=== PATIENT | male | born 1960 | race Two or more races ===

== ENCOUNTER 2023-10-06 06:42 | Outpatient (OUT) | payer BC, SELFPAY ==
[2023-10-06 07:07] LABS: Basophils Percent Auto 0.5 % (0.2-2.0); Eosinophils Absolute Auto 0.4 10^3/uL (0.0-0.7); Eosinophils Percent Auto 4.2 % (0.9-7.0); Hematocrit 42.3 % (42.0-54.0); Immature Granulocytes Abs Auto 0.02 10^3/uL (0.00-0.03); Immature Granulocytes Pct Auto 0.2 % (0.0-0.5); Lymphocytes Absolute Auto 2.1 10^3/uL (1.2-3.8); Lymphocytes Percent Auto 23.9 % (20.5-60.0); Mean Corpuscular HGB Conc 33.1 g/dL (29.9-35.2); Mean Corpuscular Hemoglobin 29.2 pg (25.9-34.0); Mean Corpuscular Volume 88.1 fL (80.0-94.0); Monocytes Absolute Auto 0.5 10^3/uL (0.3-0.8); Monocytes Percent Auto 5.7 % (1.7-12.0); Neutrophils Absolute Auto 5.7 10^3/uL (1.4-6.5); Neutrophils Percent Auto 65.5 % (43.0-75.0); Platelet Count 162 10^3/uL (150-450); Red Cell Distribution Width 12.3 % (11.0-15.0); White Blood Count 8.8 10^3/uL (4.0-11.0)
[2023-10-06 07:14] LABS: Creatinine Urine Random 145.39 mg/dL (20.00-300.00); Microalbum Creatinine Ratio Ur 38.5 mg/g (0.0-29.9); Microalbumin Urine Random 5.6 mg/dL (<=30.0)
[2023-10-06 07:34] LABS: Alanine Aminotransferase 37 U/L (16-63); Albumin Globulin Ratio 0.8; Albumin Level 3.4 g/dL (3.4-5.0); Alkaline Phosphatase 89 U/L (46-116); Anion Gap 12.1; Aspartate Amino Transferase 23 U/L (15-37); BUN Creatinine Ratio 30.8; Bilirubin Total 0.6 mg/dL (0.2-1.0); Calcium 8.9 mg/dL (8.5-10.1); Carbon Dioxide 29.1 mmol/L (21.0-32.0); Chloride 104 mmol/L (98-107); Cholesterol 148 mg/dL (<=200); Estimated GFR (African America >60 (>=60); Estimated GFR (Non-African Ame >60 (>=60); Globulin 4.2 g/dL; Glucose 153 mg/dL (74-106); HDL Cholesterol 49 mg/dL (40-60); Potassium 4.2 mmol/L (3.5-5.1); Sodium 141 mmol/L (136-145); Total Protein 7.6 g/dL (6.4-8.2); Triglycerides 255 mg/dL (<=150)
[2023-10-06 10:41] LABS: Estimated Average Glucose 180 mg/dL; Glycohemoglobin A1C 7.9 % (4.5-6.2)
== END 2023-10-06 06:43 | disposition home or self-care (01) ==
LOC: LAB 06:42
PROVIDERS: PCP Internal Medicine; Visit Provider Internal Medicine
DX: E11.9 Type 2 diabetes mellitus without complications (principal); I25.10 Atherosclerotic heart disease of native coronary artery without angina pectoris; E78.5 Hyperlipidemia, unspecified
CPT/HCPCS: 36415; 80053; 80061; 82043; 82570; 83036; 85025

== ENCOUNTER 2024-02-25 06:44 | Outpatient (OUT) | payer BC, SELFPAY ==
[2024-02-25 08:07] LABS: Estimated Average Glucose 151 mg/dL; Glycohemoglobin A1C 6.9 % (4.5-6.2)
== END 2024-02-25 06:45 | disposition home or self-care (01) ==
LOC: LAB 06:44
PROVIDERS: PCP Internal Medicine; Visit Provider Internal Medicine
DX: E11.9 Type 2 diabetes mellitus without complications (principal)
CPT/HCPCS: 36415; 83036

== ENCOUNTER 2024-05-30 14:22 | Outpatient (OUT) | payer BC, SELFPAY | END 2024-05-30 14:23 | disposition home or self-care (01) | LOC: PST 14:22 | PROVIDERS: PCP Internal Medicine; Visit Provider Ophthalmology | DX: Z01.818 Encounter for other preprocedural examination (principal); H25.811 Combined forms of age-related cataract, right eye ==

== ENCOUNTER 2024-06-02 08:06 | Day surgery (SDC) | payer BC, SELFPAY ==
--- NOTE | 2024-06-02 | HP_ITS ---
PREOPERATIVE HISTORY AND PHYSICAL Date:? 05/31/2024 HISTORY:? The patient is a 63-year-old male with complaints of declining vision out of his right eye.? The onset of this has been rather gradual, over the last 12-18 months.? He states having difficulty with tasks in mid view range.? Reading/computer work have become more challenging.? He also states having difficulty driving with light at night time creating glare and halos.? PAST OCULAR HISTORY: ?Diabetic retinopathy bilaterally.? PAST MEDICAL HISTORY: Diabetes mellitus, hypertension, hypercholesterolemia, coronary artery disease.? SOCIAL HISTORY:? Denies tobacco, alcohol or recreational drug abuse. SYSTEMIC MEDICATIONS:? Include 81 mg aspirin, valsartan, metoprolol, rosuvastatin, glimepiride, metformin.? ALLERGIES TO MEDICATIONS:? Glipizide. REVIEW OF SYSTEMS:? No pertinent positives. PHYSICAL EXAM: GENERAL:? In general, he is awake, alert and oriented x3, well developed, well nourished, in no acute distress.? HEART:? Regular rate and rhythm. LUNGS:? Clear bilaterally. ABDOMEN:? Soft, non-tender, non-distended. EXTREMITIES:? No pitting edema. OPHTHALMIC EXAM:? Revealed a visual acuity of 20/50 -2 bilaterally that glared to 20/200 bilaterally.? Pupils motility, muscle balance and confrontational visual gifford within normal limits bilaterally.? Slit lamp exam revealed blepharitis with a severe decrease in tear film bilaterally.? Conjunctiva, cornea, anterior chamber and iris were within normal limits bilaterally.? Lens status demonstrated 2+ nuclear sclerosis with 3+ cortical changes, vacuoles and a 1+ posterior subcapsular cataract.? FUNDUS EXAM:? Revealed a hazy view bilaterally.? Optic discs, vessels, periphery were within normal limits bilaterally.? The macula demonstrated micro aneurysms and an epiretinal membrane in the right eye, and micro aneurysms and intraretinal hemorrhages in the left eye.? ASSESSMENT AND PLAN:? Visually significant cataract, right eye.? After the risks, benefits, and alternatives as well as expectations were delivered to the patient, he elected to go forward with cataract removal.? He understands those risks to include but not limited to infection, bleeding, loss of vision or loss of the eye itself.? Secondly, he understands that postoperatively he is likely to require spectacle correction for his best visual acuity.? Finally, a complete ophthalmic exam was performed and there was not determined to be any source of visual decline other than that of the cataract, which is the likely source of his visual decline. ?After understanding all risks as well as expectations, he elected to go forward with the procedure as listed above and will be doing so in the near future. YENNI
--- NOTE | 2024-06-02 | OP_ITS ---
OPERATION DATE: 06/02/2024 SURGEON: Rashad Solis D.O. PREOPERATIVE DIAGNOSIS: Nuclear sclerotic cataract right eye. POSTOPERATIVE DIAGNOSIS: Nuclear sclerotic cataract right eye. PROCEDURE NAME: Cataract extraction with intraocular lens placement of the right eye. ANESTHESIA: Topical ESTIMATED BLOOD LOSS: Zero. COMPLICATIONS: None. PROCEDURE: The patient was brought to the Operating Room in supine position. After proper identification, the right eye was prepped and draped in a sterile ophthalmic fashion. A paracentesis created at the 11 o'clock position. Approximately 1 cc of unpreserved Xylocaine was injected into the anterior chamber followed by Amvisc Plus. Using a 2.6 mm Keratome blade, a clear corneal incision was created at the 9 o'clock limbus. A cystotome was then used to begin a curvilinear capsulorrhexis that was continued for 360 degrees with the Utrata forceps. BSS on a 26 gauge cannula was injected beneath the anterior capsule to hydrodissect as well as hydrodelineate the lens. After ensuring mobility, phacoemulsification was performed in a [id number]-type fashion. After all nuclear material had been removed from the eye, IA was introduced and all residual cortical material was cleaned up. Additional Amvisc Plus was injected into the posterior bag and a lens model MX60, 18.0 diopters was injected and dialed into position. After ensuring centration, IA was reintroduced into the anterior chamber and all residual Amvisc Plus was removed from the eye. BSS on a 30 gauge cannula was injected into the stroma of both the clear corneal incision as well as paracentesis to hydrate the wounds. Additional BSS was injected into the anterior chamber to pressurize the eye at approximately 20 to 22 mmHg by finger tension. 0.1 cc of antibiotic was injected into the anterior chamber and Weck-Lindsey sponges were used to check the wounds to be watertight. One drop of apraclonidine and one drop of prednisolone acetate placed into the eye and a shield was placed over top. The patient was sent to the postoperative area in satisfactory condition to follow up the following day for postoperative care. YENNI
[2024-06-02 08:10] VITALS: BP 138/86; PULSE 72; TEMP 36; O2SAT 100
--- OUTSIDE RECORDS SUMMARY | 2024-06-02 08:12 | XMS_ITS | CCD ---
Author Organization [facility] Inform ion [facility] Care Team Providers Care Repertoire Manager Name Role Phone MD Julio Sadler Attending Provider [phone] MD Angelo Pearce Primary Care Provider Shaikh Pearce Unavailable Unavailable Unavailable Julio Sadler Referring Unavailable Julio Sadler Attending Unavailable Julio Sadler Referring Unavailable Julio Sadler Attending Unavailable Julio Sadler Attending Unavailable Julio Sadler Referring Unavailable FAWWAD, STEPHENS H Admitting Unavailable FAWWAD, STEPHENS H Attending Unavailable FAWWAD, STEPHENS H Consulting Unavailable FAWWAD, STEPHENS H Primary Care Unavailable SADLER, DR JULIO Vigil Attending Unavailable SADLER, DR JULIO Vigil Consulting Unavailable FAWWAD, STEPHENS H Primary Care Unavailable SADLER, DR JULIO Vigil Admitting Unavailable FAWWAD, STEPHENS H Admitting Unavailable FAWWAD, STEPHENS H Attending Unavailable FAWWAD, STEPHENS H Consulting Unavailable FAWWAD, STEPHENS H Primary Care Unavailable SADLER, DR JULIO Vigil Consulting Unavailable SADLER, DR JULIO Vigil Admitting Unavailable FAWWAD, STEPHENS H Primary Care Unavailable SADLER, DR JULIO Vigil Attending Unavailable FAWWAD, STEPHENS H Admitting Unavailable ZIEBER, DR GARRETT Winter Consulting Unavailable FAWWAD, STEPHENS H Attending Unavailable FAWWAD, STEPHENS H Primary Care Unavailable FAWWAD, STEPHENS H Consulting Unavailable Fawwad, Stephens Primary Care Unavailable Julio Sadler Attending Unavailable Julio Sadler Admitting Unavailable Fawwad MD, Stephens Primary Care Provider [phone] JULIO SADLER Attending Unavailable SHAIKH PEARCE Primary Care Unavailable Shaikh Pearce MD Primary Care Provider SHAIKH PEARCE Attending Unavailable GREGORY LUJAN Attending Unavailable ARVIN PEDROZA Referring Unavailable SHAIKH PEARCE Attending Unavailable SHAIKH PEARCE Attending Unavailable GREGORY LUJAN Attending Unavailable Allergies Allergy Classification Reported Allergen(s) Allergy Type Date of Onset Reaction(s) Facility (2 sources) glipiZIDE; Translations: [GLIPIZIDE] Drug Allergy 10-01-2023 [facility] Medications Current Medications Medication Drug Class(es) Dates Sig (Normalized) Sig (Original) aspirin 81 mg chewable tablet (8 sources) Platelet Aggregation Inhibitor, Nonsteroidal Anti-inflammatory Drug Start: 12-24-2021 take 81 mg by mouth once daily Aspirin Active 81 MG PO Daily December 24, 2021 4:12pm take 1 tablet by mouth once geovanny y aspirin 81 mg EC tablet Take 1 tablet (81 mg) by mouth once daily. 0 Active glipiZIDE 5 mg oral tablet (8 sources) Sulfonylurea Start: 10-24-2021 End: 10-01-2023 glipiZIDE (Glucotrol) 5 mg tablet Take by mouth once daily. 0 10/24/2021 10/01/2023 Discontinued (Therapy completed) metFORMIN hydrochloride 500 mg oral tablet (10 sources) Biguanide Start: 12-24-2021 take 500 mg by mouth twice daily Metformin Active 500 MG PO Twice daily December 24, 2021 4:12pm Start: 10-24-2021 take 1 tablet by terrell th every twelve hours metFORMIN (Glucophage) 500 MG tablet Indications: Type 2 diabetes mellitus with hyperglycemia (CMS/HCC) TAKE 1 TABLET BY MOUTH EVERY 12 HOURS 180 tablet 0 09/21/2023 Active 24 hr metoprolol succinate 50 mg extended release oral tablet (11 sources) beta-Adrenergic Nenita Start: 10-01-2023 End: 09-30-2024 take 1 tablet by mouth once daily metoprolol succinate XL (Toprol-XL) 50 mg 24 hr tablet Indications: 3-vessel coronary artery disease Take 1 tablet (50 mg) by mouth once daily. Do not crush or chew. 90 tablet 3 10/01/2023 09/30/2024 Active Start: 12-24-2021 take 25 mg by mouth twice geovanny y Metoprolol Tartrate Active 25 MG PO Twice daily December 24, 2021 4:12pm Start: 12-09-2021 End: 10-01-2023 take 1 tablet by mouth every twelve hours metoprolol tartrate (Lopressor) 25 MG tablet Indications: Cardiac arrhythmia, unspecified , Cardiac dysrhythmia TAKE 1 TABLET BY MOUTH EVERY 12 HOURS 180 tablet 0 09/21/2023 Active nitroglycerin 0.4 mg sublingual tablet (1 source) Nitrate Vasodilator Start: 10-01-2023 End: 09-30-2024 nitroglycerin (Nitrostat) 0.4 mg SL tablet Indications: 3-vessel coronary artery disease Place 1 tablet (0.4 mg) under the tongue every 5 minutes if needed for chest pain. May repeat dose every 5 minutes for up to 3 doses total. 100 tablet 11 10/01/2023 09/30/2024 Active rosuvastatin calcium 20 mg oral tablet (10 sources) HMG-CoA Reductase Inhibitor Start: 12-24-2021 take 1 tablet by mouth once daily rosuvastatin (Crestor) 20 MG tablet Indications: Hyperlipidemia, unspecified hyperlipidemia type (CMS/HCC) TAKE 1 TABLET BY MOUTH EVERY DAY 90 tablet 0 08/20/2023 Active SITagliptin 100 mg oral tablet (1 source) Dipeptidyl Peptidase 4 Inhibitor Start: 10-07-2023 End: 01-05-2024 take 1 tablet by mouth in the morning SITagliptin (Januvia) 100 MG tablet Indications: Type 2 diabetes mellitus without complication, without long-term current use of insulin (CMS/HCC) Take 1 tablet (100 mg) by mouth in the morning. 90 tablet 0 10/07/2023 01/05/2024 Active valsartan 80 mg oral tablet (5 sources) Angiotensin 2 Receptor Nenita Start: 11-05-2022 take 1 tablet by mouth in the morning valsartan (Diovan) 80 MG tablet Take 80 mg by mouth in the morning. 0 07/29/2023 Active Problems Active Problems Problem Classification Problem Date Documented Date Episodic/Chronic Cardiac dysrhythmias (8 sources) Paroxysmal ventricular tachycardia; Translations: [Paroxysmal ventricular tachycardia] Onset: 08-28-2023 Resolved: 12-13-2021 08-28-2023 Chronic Coronary atherosclerosis and other heart disease (15 sources) Triple vessel disease of the heart ; Translations: [Coronary atherosclerosis of unspecified type of vessel, [place] or graft] Onset: 11-21-2022 Chronic Comment on above: Cardiac cath November 30 showed occlusion of the RCA and left circumflex with 50-70% LAD stenosis; Diabetes mellitus with complications (4 sources) Type 2 diabetes mellitus with hyperglycemia; Translations: [TYPE 2 DM W/HYPERGLYCEMIA] Onset: 06-18-2022 Chronic Diabetes mellitus without complication (19 sources) Diabetes mellitus; Translations: [Diabetes mellitus without mention of complication, type II or unspecified type, not stated as uncontrolled] Onset: 11-19-2022 Chronic Diabetes mellitus without complication (2 sources) Hyperglycemia; Translations: [Hyperglycemia, unspecified] Onset: 08-28-2023 08-28-2023 Episodic Disorders of lipid metabolism (13 sources) Hyperlipidemia; Translations: [Other and unspecified hyperlipidemia] Onset: 11-21-2022 10-01-2023 Chronic Essential hypertension (2 sources) Essential hypertension; Translations: [Essential (primary) hypertension] Onset: 09-02-2023 09-02-2023 Chronic Other circulatory disease (2 sources) History of cardiomyopathy; Translations: [Other postprocedural status] Episodic Other nutritional; endocrine; and metabolic disorders (6 sources) Obesity; Translations: [Obesity, unspecified] Chronic Other screening for suspected conditions (not mental disorders or infectious disease) (13 sources) Cardiovascular stress test abnormal; Translations: [Other nonspecific abnormal results of function study of cardiovascular system] Onset: 12-26-2021 09-09-2023 Episodic Charla-; endo-; and myocarditis; cardiomyopathy (except that caused by tuberculosis or sexually transmitted disease) (10 sources) Cardiomyopathy; Translations: [Other primary cardiomyopathies] Onset: 12-26-2021 10-01-2023 Chronic Peripheral and visceral atherosclerosis (4 sources) Peripheral vascular disease, unspecified; Translations: [PERIPHERAL VASCULAR DISEASE UNS] Onset: 06-23-2022 Chronic Residual codes; unclassified (2 sources) Never smoked any substance; Translations: [Other specified health status] Onset: 10-01-2023 10-01-2023 Episodic Residual codes; unclassified (2 sources) Other specified health status; Translations: [Other specified health status] Onset: 10-01-2023 Episodic Screening and history of mental health and substance abuse codes (6 sources) Ex-smoker; Translations: [Personal history of tobacco use] Episodic Comment on above: QUIT IN 1999; Past or Other Problems Problem Classification Problem Date Documented Da te Episodic/Chronic Unclassified (1 source) Onset: 10-01-2023 10-01-2023 Results Test Name Value Interpretation Reference Range Facility [facility] MICROALB CREAT RATIO RAN DOMon 10-06-2023 CREATININE URINE RANDOM 145.39 mg/dL 20.00 - 300.00 mg/dL [facility] Interpretation and review of laboratory results Abnormal [facility] MICROALBUM CREATININE RATIO UR 38.5 mg/g High 0.0 - 29.9 mg/g [facility] Comment on above: NO MICROALBUMINURIA 0-29 MG/G CLINICAL MICROALBUMINURIA 30-300 MG/G MACROALBUMINURIA >300 MG/G MICROALBUMIN URINE RANDOM 5.6 mg/dL NINF - 30.0 mg/dL [facility] SGOTon 01-01-2023 AST [Catalytic activity/Vol] 23 U/L Normal 15-37 [facility] Comment on above: Performed By: #### A LT, AST #### [facility] [address] [place] [address] Dr. [facility] ALT [Catalytic activity/Vol] 46 U/L Normal 16-63 [facility] Comment on above: Performed By: #### A LT, AST #### [facility] [address] [place] [address] Dr. Jeremías Gaffney CBC AUTO DIFFon 11-19-2022 BASO # 0.0 103/ul Normal 0.0-0.1 [facility] Comment on above: Performed By: #### C BC #### [facility] [address] [place] [address] Dr. Jeremías Gaffney Basophils/100 WBC (Bld) 0.5 % Normal 0.2-2.0 [facility] Comment on above: Performed By: #### C BC #### [facility] [address] [place] [address] Dr. Jeremías Gaffney EO # 0.3 103/ul Normal 0.0-0.7 [facility] Comment on above: Performed By: #### C BC #### [facility] [address] [place] [address] Dr. Jeremías Gaffney Eosinophils/100 WBC (Bld) 3.2 % Normal 0.9-7.0 [facility] Comment on above: Performed By: #### C BC #### [facility] [address] [place] [address] Dr. Jeremías Gaffney Erythrocyte distribution width (RBC) [Ratio] 12.6 % Normal 11.0-15.0 [facility] Comment on above: Performed By: #### C BC #### [facility] [address] [place] [address] Dr. Jeremías Gaffney Hematocrit (Bld) [Volume fraction] 44.5 % Normal 42.0-54.0 [facility] Comment on above: Performed By: #### C BC #### [facility] [address] [place] [address] Dr. Jeremías Gaffney Hemoglobin (Bld) [Mass/Vol] 14.4 g/dL Normal 14.0-18.0 [facility] Comment on above: Performed By: #### C BC #### [facility] [address] [place] [address] Dr. Jeremías Gaffney IG # 0.02 10e3/ul Normal 0.00-0.03 [facility] Comment on above: Performed By: #### C BC #### [facility] [address] [place] [address] Dr. Jeremías Gaffney IG % 0.2 % Normal 0.0-0.5 [facility] Comment on above: Performed By: #### C BC #### [facility] [address] [place] [address] Dr. Jeremías Gaffney LYMPH # 1.7 103/ul Normal 1.2-3.8 [facility] Comment on above: Performed By: #### C BC #### [facility] [address] [place] [address] Dr. Jeremías Gaffney Lymphocytes/100 WBC (Bld) 19.7 % Critically low 20.5-60.0 [facility] Comment on above: Performed By: #### C BC #### [facility] [address] [place] [address] Dr. Jeremías Gaffney MANUAL DIFF REQ NO Normal [facility] Comment on above: Performed By: #### C BC #### [facility] [address] [place] [address] Dr. Jeremías Gaffney MCH (RBC) [Entitic mass] 27.7 pg Normal 25.9-34.0 [facility] Comment on above: Performed By: #### C BC #### [facility] [address] [place] [address] Dr. Jeremías Gaffney MCHC (RBC) [Mass/Vol] 32.4 g/dL Normal 29.9-35.2 [facility] Comment on above: Performed By: #### C BC #### [facility] [address] [place] [address] Dr. Jeremías Gaffney MCV (RBC) [Entitic vol] 85.7 fL Normal 80.0-94.0 [facility] Comment on above: Performed By: #### C BC #### [facility] [address] [place] [address] Dr. Jeremías Gaffney MONO # 0.5 103/ul Normal 0.3-0.8 [facility] Comment on above: Performed By: #### C BC #### [facility] [address] [place] [address] Dr. Jeremías Gaffney Monocytes/100 WBC (Bld) 5.6 % Normal 1.7-12.0 [facility] Comment on above: Performed By: #### C BC #### [facility] [address] [place] [address] Dr. Jeremías Gaffney NEUT # 6.1 103/ul Normal 1.4-6.5 [facility] Comment on above: Performed By: #### C BC #### [facility] [address] [place] [address] Dr. Jeremías Gaffney Neutrophils/100 WBC (Bld) 70.8 % Normal 43.0-75.0 [facility] Comment on above: Performed By: #### C BC #### [facility] [address] [place] [address] Dr. Jeremías Gaffney Platelet mean volume (Bld) [Entitic vol] 12.3 fL Normal 9.5-13.5 [facility] Comment on above: Performed By: #### C BC #### [facility] [address] [address] [address] Jeremías Gaffney PLT 135 103/ul Critically low 150-450 [facility] Comment on above: Performed By: #### C BC #### [facility] [address] [place] [address] Dr. Jeremías Gaffney RBC 5.19 106/ul Normal 4.70-6.10 [facility] Comment on above: Performed By: #### C BC #### [facility] [address] [place] [address] Dr. Jeremías Gaffney WBC 8.6 103/ul Normal 4.0-11.0 [facility] Comment on above: Performed By: #### C BC #### [facility] [address] [place] [address] Dr. Jeremías Gaffney GLYCOHEMOGLOBIN A1Con 2022 ADA RECOMMENDATION SEE BELOW Normal [facility] Comment on above: Result Comment: ADA RECOMMENDED LIMIT 4.0 - 6.0 ADA THERAPEUTIC TARGET < 7.0 ACTION SUGGESTED > 7.0 Performed By: #### A LT, AST #### [facility] [address] [place] [address] Dr. Jeremías Gaffney Glucose [Mass/Vol] 137 mg/dL Normal [facility] Comment on above: Performed By: #### A LT, AST #### [facility] [address] [place] [address] Dr. Jeremías Gaffney HbA1c (Bld) [Mass fraction] 6.4 % Critically high 4.5-6.2 [facility] Comment on above: Performed By: #### A LT, AST #### [facility] [address] [address] [address] Jeremías Gaffney LIPID PROFILEon 11-19-2022 CHOL-HDL RATIO NORM SEE BELOW Normal [facility] Comment on above: Result Comment: 3.3 - 4.4 LOW RISK 4.4 - 7.1 AVERAGE RISK 7.1 - 11.0 MODERATE RISK >11.0 HIGH RISK Performed By: #### A LT, AST #### [facility] [address] [address] [address] Jeremías Gaffney Cholesterol [Mass/Vol] 140 mg/dL Normal <=200 [facility] Comment on above: Performed By: #### A LT, AST #### [facility] [address] [address] [address] Jeremías Gaffney Cholesterol in HDL [Mass/Vol] 53 mg/dL Normal 40-60 [facility] Comment on above: Performed By: #### A LT, AST #### [facility] [address] [address] [address] Jeremías Gaffney Cholesterol in LDL [Mass/Vol] 60.0 mg/dL Normal [facility] Comment on above: Performed By: #### A LT, AST #### [facility] [address] [address] [address] Jeremías Gaffney Cholesterol.total/Ch olesterol in HDL [Mass ratio] 2.6 {ratio} Normal [facility] Comment on above: Performed By: #### A LT, AST #### [facility] [address] [address] [address] Jeremías Gaffney HDL NORMAL > or = 60 mg/dl - LO W CARDIOVASCULAR RISK <40 mg/dl - HIGH CARDIOVASCULAR RISK Normal [facility] Comment on above: Performed By: #### A LT, AST #### [facility] [address] [address] [address] Jeremías Gaffney LDL CALC NORMAL SEE BELOW Normal [facility] Comment on above: Result Comment: <100 mg/dl OPTIMAL 100 - 129 mg/dl NEAR OR ABOVE OPTIMAL 130 - 159 mg/dl BORDERLINE HIGH 160 - 189 mg/dl HIGH >190 mg/dl VERY HIGH Performed By: #### A LT, AST #### [facility] [address] [address] [address] Jeremías Gaffney Triglyceride [Mass/Vol] 135 mg/dL Normal <=150 [facility] Comment on above: Performed By: #### A LT, AST #### [facility] [address] [address] [address] Jeremías Gaffney VLDL CALC 27.0 mg/dL Normal [facility] Comment on above: Performed By: #### A LT, AST #### [facility] [address] [address] [address] Jreemías Gaffney PROF CHEM 8 (BAS METB)on Anion gap [Moles/Vol] 12.0 mmol/L Normal [facility] Comment on above: Performed By: #### A LT, AST, BMP, LIPID #### [facility] [address] [address] [address] Jeremías Gaffney Calcium [Mass/Vol] 9.4 mg/dL Normal 8.5-10.1 [facility] Comment on above: Performed By: #### A LT, AST, BMP, LIPID #### [facility] [address] [address] [address] Jeremías Gaffney Chloride [Moles/Vol] 105 mmol/L Normal 98-107 [facility] Comment on above: Performed By: #### A LT, AST, BMP, LIPID #### [facility] [address] [address] [address] Jeremías Gaffney CO2 [Moles/Vol] 29.8 mmol/L Normal 21.0-32.0 [facility] Comment on above: Performed By: #### A LT, AST, BMP, LIPID #### [facility] [address] [address] [address] Jeremías Gaffney Creatinine [Mass/Vol] 0.77 mg/dL Normal 0.70-1.30 [facility] Comment on above: Performed By: #### A LT, AST, BMP, LIPID #### [facility] [address] [address] [address] Jeremías Gaffney EGFR-AF BELARUSIAN >60 Normal >=60 [facility] Comment on above: Performed By: #### A LT, AST, BMP, LIPID #### [facility] [address] [address] [address] Jeremías Gaffney EGFR-NON AF BELARUSIAN >60 Normal >=60 [facility] Comment on above: Performed By: #### A LT, AST, BMP, LIPID #### [facility] [address] [address] [address] Jeremías Gaffney Glucose [Mass/Vol] 132 mg/dL Critically high 74-106 [facility] Comment on above: Performed By: #### A LT, AST, BMP, LIPID #### [facility] [address] [address] [address] Jeremías Gaffney Potassium [Moles/Vol] 4.8 mmol/L Normal 3.5-5.1 [facility] Comment on above: Performed By: #### A LT, AST, BMP, LIPID #### [facility] [address] [address] [address] Jeremías Gaffney Sodium [Moles/Vol] 142 mmol/L Normal 136-145 [facility] Comment on above: Performed By: #### A LT, AST, BMP, LIPID #### [facility] [address] [place] [address] Dr. Jeremías Gaffney Urea nitrogen [Mass/Vol] 20.0 mg/dL Critically high 7.0-18.0 [facility] Comment on above: Performed By: #### A LT, AST, BMP, LIPID #### [facility] [address] [address] [address] Jeremías Gaffney Urea nitrogen/Creatinine [Mass ratio] 26.0 mg/mg Normal [facility] Comment on above: Performed By: #### A LT, AST, BMP, LIPID #### [facility] [address] [place] [address] Dr. Jeremías Gaffney SGKaren 11-19-2022 AST [Catalytic activity/Vol] 49 U/L Critically high 15-37 [facility] Comment on above: Performed By: #### A LT, AST, BMP, LIPID #### [facility] [address] [place], [place] [address] Dr. Jeremías Gaffney SGPTon 11-19-2022 ALT [Catalytic activity/Vol] 81 U/L Critically high 16-63 [facility] Comment on above: Performed By: #### A LT, AST #### [facility] [address] [place], [place] [address] Dr. Jeremías Gaffney Office Visit (Cardiology)on 11-05-2022 Follow-up visit Diagnoses/Problems Assessed 3-vessel coronary artery disease (414.00) (I25.10) Cardiac cath November 2021 showed occlusion of the RCA and left circumflex with 50-70% LAD stenosis Hyperlipidemia (272.4) (E78.5) Diabetes mellitus (250.00) (E11.9) Former smoker (V15.82) (Z87.891) QUIT IN 1999 Class 1 obesity with body mass index (BMI) of 31.0 to 31.9 in adult (278.00,V85.31) (E66.9,Z68.31) History of ischemic cardiomyopathy (V45.89) (Z86.79) Orders 3-vessel coronary artery disease Start: Valsartan 80 MG Oral Tablet; TAKE 1 TABLET DAILY Renew: Aspirin EC 81 MG Oral Tablet Delayed Release; TAKE 1 TABLET DAILY 3-vessel coronary artery disease, Cardiomyopathy, Hyperlipidemia ALT - Alanine Aminotransferase, Serum; Status:Active - Retrospective Authorization; Requested for:19Nov2022; AST; Status:Active - Retrospective Authorization; Requested for:19Nov2022; Basic Metabolic Panel; Status:Active - Retrospective Authorization; Requested for:19Nov2022; Complete Blood Count; Status:Active - Retrospective Authorization; Requested for:19Nov2022; Lipid Panel; Status:Active - Retrospective Authorization; Requested for:19Nov2022; 3-vessel coronary artery disease, Hyperlipidemia Renew: Rosuvastatin Calcium 20 MG Oral Tablet; TAKE 1 TABLET DAILY Class 1 obesity with body mass index (BMI) of 31.0 to 31.9 in adult Healthy Weight Tips; Status:Complete; Done: 05Nov2022 Some eating tips that can help you lose weight.; Status:Complete; Done: 05Nov2022 SocHx: Former smoker Tobacco Use Screening; Status:Complete; Done: 05Nov2022 Patient Instructions Please bring all medicines, vitamins, and herbal supplements with you when you come to the office. Prescriptions will not be filled unless you are compliant with your follow up appointments or have a follow up appointment scheduled as per instruction of your physician. Refills should be requested at the time of your visit. Follow up in 9 months Chief Complaint EAGLE SANDOVAL is being seen for a 6 month follow-up of. Patient is in the office for follow-up for CAD. Last November 2021 he underwent diagnostic cardiac catheterization which revealed occlusion of the mid RCA and left circumflex with mature [id number] and left to left collateral network. Ejection fraction 45%. He had 50 to 70% mid LAD stenosis. The patient had viability study with cardiac MRI which revealed scars and no viable myocardium. Medical therapy was advised. The patient remains angina free, no arrhythmias and no heart failure. His medical therapy was reviewed and ARB was added to his medical regimen. He continues to work full capacity with no symptoms of heart failure chest pain or palpitations. His weight remains above target. His PCP manages his diabetes. His examination only remarkable for obesity. There has been no blood work on the chart since he was last seen last year. Assessment/recommendations : 1?severe coronary artery disease confirmed by cardiac catheterization November 2021. He has occlusion of the RCA and left circumflex with 50 to 70% mid LAD stenosis with mature nature of collaterals and ejection fraction 45%. He is symptoms free and because of this and after the case was reviewed interventional cardiology medical therapy was felt to be the right approach. We will continue aggressive modification risk factor for CAD. 2?ischemic cardiopathy stage C functional class II, he is currently on beta-nenita therapy but valsartan will be added, will check his labs in the near future. 3?diabetes on medical therapy managed by PCP 4?hyperlipidemia on rosuvastatin, lipid profile is needed and was ordered 5?obesity, encouraged weight loss with diet and exercise. Current Meds Medication NameInstruction Aspirin EC 81 MG Oral Tablet Delayed ReleaseTAKE 1 TABLET DAILY. glipiZIDE 5 MG Oral TabletTAKE 1 TABLET BY MOUTH EVERY DAY*USE WITHIN 30 MINUTES OF MEAL* metFORMIN HCl - 500 MG Oral TabletTAKE 1 TABLET BY MOUTH EVERY 12 HOURS Metoprolol Tartrate 25 MG Oral TabletTAKE 1 TABLET BY MOUTH EVERY 12 HOURS Rosuvastatin Calcium 20 MG Oral TabletTAKE 1 TABLET DAILY. Allergies Medication No Known Drug Allergies Recorded By: Vania Arshad; 12/13/2021 12:49:38 PM Social History Problems Former smoker (V15.82) (Z87.891) QUIT IN 1999 No alcohol use No illicit drug use Occasional caffeine consumption Review of Systems Constitutional: not feeling tired. Cardiovascular: no intermittent leg claudication and as noted in HPI. Respiratory: no cough and no shortness of breath. Gastrointestinal: no change in bowel habits and no blood in stools. Integumentary: no skin rashes. Neurological: no seizures and no frequent falls. All other systems have been reviewed and are negative for complaint. Vitals Vital Signs Recorded: 05Nov2022 10:44AM Heart Rate76, L Radial [id number], RUE, Sitting [id number], RUE, Sitting Height5 ft 5 in [id number] lb BMI Nocaleuwrb03.95 kg/m2 BSA Calculated1.94 To (more content not included)... Normal [facility] Tobacco Screening.on 023 Adult depression screening assessment No [facility] Ad[facility] Work Phone: Fall risk assessment a) No falls within the last year [facility] AdKeeper DO Work Phone: Tobacco use status CPHS b) No [facility] Ad[facility] DO Work Phone: US ARTERY LEG RTon US ARTERY LEG RT EXAMINATION: US MARISSA RY LEG RT HISTORY: Peripheral vascular disease (disorder) ; claudication COMPARISON: No relevant comparison available. TECHNIQUE: Color duplex Doppler ultrasound evaluation analysis was performed in the usual manner. FINDINGS: External Iliac PSV: 107.0/6.1 cm/s Common Femoral PSV: 58.6/4.9 cm/s Superficial Femoral Proximal PSV: 67.6/4.9 cm/s Mid PSV: 68.9/7.4 cm/s Distal PSV: 78.7/6.6 cm/s Popliteal Proximal PSV: 63.2/5.3 cm/s Posterior Tibial Proximal PSV: 30.7/6.7 cm/s Mid PSV: 51.6/0.0 cm/s Distal PSV: 49.6/4.4 cm/s Anterior Tibial Proximal PSV: 43.8/5.4 cm/s Mid PSV: 33.9/5.4 cm/s Distal PSV: 68.0/5.6 cm/s IMPRESSION: 1. Minimal atherosclerotic plaque throughout right lower extremity without significant stenosis or suspicious findings. 2. Normal triphasic waveform throughout. Electronically authenticated by: GARRETT MONTAGUE Date: 2022-06-23 20:08 Normal [facility] CBC AUTO DIFFon 06-18-2022 BASO # 0.1 103/ul Normal 0.0-0.1 [facility] Comment on above: Performed By: #### C BC #### [facility] [address] [address] [address] Jeremías Gaffney Basophils/100 WBC (Bld) 0.5 % Normal 0.2-2.0 [facility] Comment on above: Performed By: #### C BC #### [facility] [address] [place] [address] Dr. Jeremías Gaffney EO # 0.2 103/ul Normal 0.0-0.7 [facility] Comment on above: Performed By: #### C BC #### [facility] [address] [address] [address] Jeremías Gaffney Eosinophils/100 WBC (Bld) 1.5 % Normal 0.9-7.0 [facility] Comment on above: Performed By: #### C BC #### [facility] [address] [place] [address] Dr. Jeremías Gaffney Erythrocyte distribution width (RBC) [Ratio] 13.3 % Normal 11.0-15.0 [facility] Comment on above: Performed By: #### C BC #### [facility] [address] [place] [address] Dr. Jeremías Gaffney Hematocrit (Bld) [Volume fraction] 43.2 % Normal 42.0-54.0 [facility] Comment on above: Performed By: #### C BC #### [facility] [address] [place] [address] Dr. Jeremías Gaffney Hemoglobin (Bld) [Mass/Vol] 14.4 g/dL Normal 14.0-18.0 [facility] Comment on above: Performed By: #### C BC #### [facility] [address] [address] [address] Jeremías Gaffney IG # 0.04 10e3/ul Critically high 0.00-0.03 [facility] Comment on above: Performed By: #### C BC #### [facility] [address] [address] [address] Jeremías Gaffney IG % 0.4 % Normal 0.0-0.5 [facility] Comment on above: Performed By: #### C BC #### [facility] [address] [place] [address] Dr. Jeremías Gaffney LYMPH # 1.6 103/ul Normal 1.2-3.8 [facility] Comment on above: Performed By: #### C BC #### [facility] [address] [place] [address] Dr. Jeremías Gaffney Lymphocytes/100 WBC (Bld) 15.0 % Critically low 20.5-60.0 [facility] Comment on above: Performed By: #### C BC #### [facility] [address] [place] [address] Dr. Jeremías Gaffney MANUAL DIFF REQ NO Normal [facility] Comment on above: Performed By: #### C BC #### [facility] [address] [place] [address] Dr. Jeremías Gaffney MCH (RBC) [Entitic mass] 28.7 pg Normal 25.9-34.0 [facility] Comment on above: Performed By: #### C BC #### [facility] [address] [place] [address] Dr. Jeremías Gaffney MCHC (RBC) [Mass/Vol] 33.3 g/dL Normal 29.9-35.2 [facility] Comment on above: Performed By: #### C BC #### [facility] [address] [place] [address] Dr. Jeremías Gaffney MCV (RBC) [Entitic vol] 86.1 fL Normal 80.0-94.0 [facility] Comment on above: Performed By: #### C BC #### [facility] [address] [place] [address] Dr. Jeremías Gaffney MONO # 0.5 103/ul Normal 0.3-0.8 [facility] Comment on above: Performed By: #### C BC #### [facility] [address] [place] [address] Dr. Jeremías Gaffney Monocytes/100 WBC (Bld) 4.4 % Normal 1.7-12.0 [facility] Comment on above: Performed By: #### C BC #### [facility] [address] [place] [address] Dr. Jeremías Gaffney NEUT # 8.1 103/ul Critically high 1.4-6.[address] [facility] Comment on above: Performed By: #### C BC #### [facility] [address] [place] [address] Dr. Jeremías Gaffney Neutrophils/100 WBC (Bld) 78.2 % Critically high 43.0-75.0 [facility] Comment on above: Performed By: #### C BC #### [facility] [address] [place] [address] Dr. Jeremías Gaffney Platelet mean volume (Bld) [Entitic vol] 11.9 fL Normal 9.5-13.5 [facility] Comment on above: Performed By: #### C BC #### [facility] [address] [place] [address] Dr. Jeremías Gaffney PLT 161 103/ul Normal 150-450 [facility] Comment on above: Performed By: #### C BC #### [facility] [address] [place] [address] Dr. Jeremías Gaffney RBC 5.02 106/ul Normal 4.70-6.10 [facility] Comment on above: Performed By: #### C BC #### [facility] [address] [place] [address] Dr. Jeremías Gaffney WBC 10.4 103/ul Normal 4.0-11.0 [facility] Comment on above: Performed By: #### C BC #### [facility] [address] [place] [address] Dr. Jeremías Gaffney GLYCOHEMOGLOBIN A1Con 10-19- 2022 ADA RECOMMENDATION SEE BELOW Normal [facility] Comment on above: Result Comment: ADA RECOMMENDED LIMIT 4.0 - 6.0 ADA THERAPEUTIC TARGET < 7.0 ACTION SUGGESTED > 7.0 Performed By: #### A 1C #### [facility] [address] [place] [address] Dr. Jeremías Gaffney Glucose [Mass/Vol] 134 mg/dL Normal [facility] Comment on above: Performed By: #### A 1C #### [facility] [address] [place] [address] Dr. Jeremías Gaffney HbA1c (Bld) [Mass fraction] 6.3 % Critically high 4.5-6.2 [facility] Comment on above: Performed By: #### A 1C #### [facility] [address] [place] [address] Dr. Jeremías Gaffney LIPID PROFILEon 06-18-2022 CHOL-HDL RATIO NORM SEE BELOW Normal [facility] Comment on above: Result Comment: 3.3 - 4.4 LOW RISK 4.4 - 7.1 AVERAGE RISK 7.1 - 11.0 MODERATE RISK >11.0 HIGH RISK Performed By: #### C MP, LIPID #### [facility] [address] [place] [address] Dr. Jeremías Gaffney Cholesterol [Mass/Vol] 110 mg/dL Normal <=200 [facility] Comment on above: Performed By: #### C MP, LIPID #### [facility] [address] [place] [address] Dr. Jeremías Gaffney Cholesterol in HDL [Mass/Vol] 52 mg/dL Normal 40-60 [facility] Comment on above: Performed By: #### C MP, LIPID #### [facility] [address] [address] [address] Jeremías Gaffney Cholesterol in LDL [Mass/Vol] 29.2 mg/dL Normal [facility] Comment on above: Performed By: #### C MP, LIPID #### [facility] [address] [place] [address] Dr. Jeremías Gaffney Cholesterol.total/Ch olesterol in HDL [Mass ratio] 2.1 {ratio} Normal [facility] Comment on above: Performed By: #### C MP, LIPID #### [facility] [address] [address] [address] Jeremías Gaffney HDL NORMAL > or = 60 mg/dl - LO W CARDIOVASCULAR RISK <40 mg/dl - HIGH CARDIOVASCULAR RISK Normal [facility] Comment on above: Performed By: #### C MP, LIPID #### [facility] [address] [address] [address] Jeremías Gaffney LDL CALC NORMAL SEE BELOW Normal [facility] Comment on above: Result Comment: <100 mg/dl OPTIMAL 100 - 129 mg/dl NEAR OR ABOVE OPTIMAL 130 - 159 mg/dl BORDERLINE HIGH 160 - 189 mg/dl HIGH >190 mg/dl VERY HIGH Performed By: #### C MP, LIPID #### [facility] [address] [place] [address] Dr. Jeremías Gaffney Triglyceride [Mass/Vol] 144 mg/dL Normal <=150 [facility] Comment on above: Performed By: #### C MP, LIPID #### [facility] [address] [address] [address] Jeremías Gaffney VLDL CALC 28.8 mg/dL Normal [facility] Comment on above: Performed By: #### C MP, LIPID #### [facility] [address] [place] [address] Dr. Jeremías Gaffney PROF 14(COMP METB)on 022 Albumin [Mass/Vol] 3.8 g/dL Normal 3.4-5.0 [facility] Comment on above: Performed By: #### C MP, LIPID #### [facility] [address] [place] [address] Dr. Jeremías Gaffney Albumin/Globulin [Mass ratio] 1.0 {ratio} Normal [facility] Comment on above: Performed By: #### C MP, LIPID #### [facility] [address] [address] [address] Jeremías Gaffney ALP [Catalytic activity/Vol] 70 U/L Normal 46-116 [facility] Comment on above: Performed By: #### C MP, LIPID #### [facility] [address] [address] [address] Jeremías Gaffney ALT [Catalytic activity/Vol] 40 U/L Normal 16-63 [facility] Comment on above: Performed By: #### C MP, LIPID #### [facility] [address] [address] [address] Jeremías Gaffney Anion gap [Moles/Vol] 11.9 mmol/L Normal [facility] Comment on above: Performed By: #### C MP, LIPID #### [facility] [address] [address] [address] Jeremías Gaffney AST [Catalytic activity/Vol] 18 U/L Normal 15-37 [facility] Comment on above: Performed By: #### C MP, LIPID #### [facility] [address] [address] [address] Jeremías Gaffney Bilirubin [Mass/Vol] 0.7 mg/dL Normal 0.2-1.0 [facility] Comment on above: Performed By: #### C MP, LIPID #### [facility] [address] [address] [address] Jeremías Gaffney Calcium [Mass/Vol] 9.0 mg/dL Normal 8.5-10.1 [facility] Comment on above: Performed By: #### C MP, LIPID #### [facility] [address] [address] [address] Jeremías Gaffney Chloride [Moles/Vol] 103 mmol/L Normal 98-107 [facility] Comment on above: Performed By: #### C MP, LIPID #### [facility] [address] [address] [address] Jeremías Gaffney CO2 [Moles/Vol] 28.4 mmol/L Normal 21.0-32.0 [facility] Comment on above: Performed By: #### C MP, LIPID #### [facility] [address] [address] [address] Jeremías Gaffney Creatinine [Mass/Vol] 0.72 mg/dL Normal 0.70-1.30 [facility] Comment on above: Performed By: #### C MP, LIPID #### [facility] [address] [address] [address] Jeremías Gaffney EGFR-AF BELARUSIAN >60 Normal >=60 [facility] Comment on above: Performed By: #### C MP, LIPID #### [facility] [address] [address] [address] Jeremías Gaffney EGFR-NON AF BELARUSIAN >60 Normal >=60 [facility] Comment on above: Performed By: #### C MP, LIPID #### [facility] [address] [address] [address] Jeremías Gaffney Globulin (S) [Mass/Vol] 3.8 g/dL Normal [facility] Comment on above: Performed By: #### C MP, LIPID #### [facility] [address] [place] [address] Dr. Jeremías Gaffney Glucose [Mass/Vol] 106 mg/dL Normal 74-106 [facility] Comment on above: Performed By: #### C MP, LIPID #### [facility] [address] [address] [address] Jeremías Gaffney Potassium [Moles/Vol] 4.3 mmol/L Normal 3.5-5.1 [facility] Comment on above: Performed By: #### C MP, LIPID #### [facility] [address] [place] [address] Dr. Jeremías Gaffney Protein [Mass/Vol] 7.6 g/dL Normal 6.4-8.2 [facility] Comment on above: Performed By: #### C MP, LIPID #### [facility] [address] [address] [address] Jeremías Gaffney Sodium [Moles/Vol] 139 mmol/L Normal 136-145 [facility] Comment on above: Performed By: #### C MP, LIPID #### [facility] [address] [address] [address] Jeremías Gaffney Urea nitrogen [Mass/Vol] 19.0 mg/dL Critically high 7.0-18.0 [facility] Comment on above: Performed By: #### C MP, LIPID #### [facility] [address] [address] [address] Jeremías Gaffney Urea nitrogen/Creatinine [Mass ratio] 26.4 mg/mg Normal [facility] Comment on above: Performed By: #### C MP, LIPID #### [facility] [address] [place], [place] [address] Dr. Jeremías Gaffney MRI Cardiac w/wo contrast fo r Morph/Funct and Valve Dzon 01-30-2022 MRI Cardiac w/wo contrast for Morph/Funct and Valve Dz Normal [facility] [address] DO Work Phone: [phone] MRI CARDIAC RESONANCE YARA GING FOR VELOCITY FLOW MAPPINGon 01-30-2022 MRI CARDIAC RESONANCE IMAGING FOR VELOCITY FLOW MAPPING [facility] CMR Report Name: EAGLE SANDOVAL : 1960 Scan Date: 2022-01-30 11:10:00 Electronically signed by SHARAN THOMAS 10:03:32 GENERAL INFORMATION HEIGHT: 66.00 in (167.64 cm) WEIGHT: 187.00 lbs (84.82 kgs) BSA: 1.94 m^2 BP: 110 / 72 mmHg BASELINE HR: 73 BPM SCAN LOCATION: [facility] REFERRING PHYSICIAN: JULIO SADLER ATTENDING PHYSICIAN: JULIO SADLER TECHNOLOGIST: RAZA SORIA ACCESSION NUMBER: [id number] CPT CODES: 74244 ICD10 CODES: I42.9, [ , ]I25.10 SUMMARY 1. Nonviable myocardial segments: Mid/distal inferior wall. Basal/mid/distal inferolateral wall. 2. Mildly dilated left ventricle with mild-moderately depressed systolic function. Ejection fraction 44%. 3. 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 Transmural myocardial infarction of the mid/distal inferior wall. Transmural myocardial infarction of the basal/mid/distal inferolateral wall. Nontransmural subendocardial myocardial infarction of the mid anterolateral wall. 4. Normal right ventricular cavity size with preserved systolic function. RV EF 57%. 5. Moderate circumferential pericardial effusion. Maximum Dimension 12 mm. There is mild RA systolic inversion/collapse. LEFT VENTRICLE: Quantitative LVEF 44 %. There is mild LV hypertrophy. There is asymmetric LVH. LV cavity is mildly enlarged. LV systolic function is regionally impaired. VIABILITY: LV scar size is 29 %. RIGHT VENTRICLE: Quantitative RVEF 57 %. RV wall thickness is normal. RV cavity size is normal. RV systolic function is normal. There is no RV mass/thrombus. LV/RV SEPTUM: The ventricular septum is intact. LA/RA SEPTUM: The atrial septum is intact. LEFT ATRIUM: LA is moderately enlarged. RIGHT ATRIUM: RA is mildly enlarged. PERICARDIUM: There is a moderate pericardial effusion. Maximum Dimension 12 mm. There is mild RA systolic inversion/collapse. Pericardium is normal. There is a circumferential pericardial effusion. PLEURAL EFFUSION: There is no pleural effusion. AORTIC VALVE: Aortic valve is trileaflet. There is trivial aortic regurgitation. There is no aortic stenosis. MITRAL VALVE: Mitral valve leaflets are normal. There is mild mitral regurgitation. TRICUSPID VALVE: Tricuspid valve leaflets are normal. There is mild tricuspid regurgitation. PULMONIC VALVE: Pulmonic valve leaflets are normal. AORTIC ROOT: The aortic root is normal. CORE EXAM MEASUREMENTS VOLUMETRIC ANALYSIS . ------. . . . LV . Reference . RV . Reference . +------+ +------+ +------+------ ------+ . EDV . ml . 193 . (109-191) . 157 . (105-205) . . . ml/m^2 . 99 . (60-95) . 81 . (56-101) . . ESV . ml . 108 . (27-72) . 67 . (20-80) . . . ml/m^2 . 56 . (14-36) . 35 . (11-40) . . CO . L/min . 6.25 . . 6.66 . . . . L/min/m^2 . 3.21 . . 3.42 . . . MASS . g . 194 . (107-183) . . . . . g/m^2 . 100 . (57-90) . . . . SV . ml . 84 . (73-129) . 90 . (71-139) . . . ml/m^2 . 43 . (40-64) . 46 . (37-69) . . EF . % . 44 . (58-76) . 57 . (33-81) . '------+ +------+ +------+------ ------' CARDIAC OUTPUT HR: 74 BPM LV DIMENSIONS WALL THICKNESS - ANTEROSEPTAL: 1.2 cm WALL THICKNESS - INFEROLATERAL: 0.3 cm WALL THICKNESS - MAXIMUM: 0.6 cm LV FARZANEH: 6.3 cm LV ESD: 5.2 cm LA DIMENSIONS (LV SYSTOLE) DIAMETER: 5.2 cm AREA - 2 CHAMBER: 25.86 cm^2 LENGTH - 2 CHAMBER: 5.7 cm AREA - 4 CHAMBER: 32 cm^2 LENGTH - 4 CHAMBER: 6.7 cm VOLUME: 123 ml VOLUME NORMALIZED: 63.5 ml/m^2 RA DIMENSIONS (RV SYSTOLE) DIAMETER: 5.1 cm AREA - 4 CHAMBER: 22.9 cm^2 LENGTH - 4 CHAMBER: 5.6 cm AORTIC ROOT DIMENSIONS ANNULUS: 2.4 cm SINUS OF VALSALVA: 2.7 cm SINOTUBULAR JUNCTION: 2.4 cm FLOW ANALYSIS QP: 5 L/min QS: 6 L/min QP/QS: 0.96 17 SEGMENT . . . Segments . Wall Motion . Hyperenhancement (more content not included)... Normal [facility] MRI CARDIAC W/WO CONTRAST FOR MORPH/FUNCT AND VALVE [facility] [place] 01-30-2022 MRI CARDIAC W/WO CONTRAST FOR MORPH/FUNCT AND VALVE [facility] CMR Report Name: EAGLE SANDOVAL : 1960 Scan Date: 2022-01-30 11:10:00 Electronically signed by SHARAN THOMAS 10:03:32 GENERAL INFORMATION HEIGHT: 66.00 in (167.64 cm) WEIGHT: 187.00 lbs (84.82 kgs) BSA: 1.94 m^2 BP: 110 / 72 mmHg BASELINE HR: 73 BPM SCAN LOCATION: [facility] REFERRING PHYSICIAN: JULIO SADLER ATTENDING PHYSICIAN: JULIO SADLER TECHNOLOGIST: RAZA SORIA ACCESSION NUMBER: [id number] CPT CODES: 69026 ICD10 CODES: I42.9, [ , ]I25.10 SUMMARY 1. Nonviable myocardial segments: Mid/distal inferior wall. Basal/mid/distal inferolateral wall. 2. Mildly dilated left ventricle with mild-moderately depressed systolic function. Ejection fraction 44%. 3. 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 Transmural myocardial infarction of the mid/distal inferior wall. Transmural myocardial infarction of the basal/mid/distal inferolateral wall. Nontransmural subendocardial myocardial infarction of the mid anterolateral wall. 4. Normal right ventricular cavity size with preserved systolic function. RV EF 57%. 5. Moderate circumferential pericardial effusion. Maximum Dimension 12 mm. There is mild RA systolic inversion/collapse. LEFT VENTRICLE: Quantitative LVEF 44 %. There is mild LV hypertrophy. There is asymmetric LVH. LV cavity is mildly enlarged. LV systolic function is regionally impaired. VIABILITY: LV scar size is 29 %. RIGHT VENTRICLE: Quantitative RVEF 57 %. RV wall thickness is normal. RV cavity size is normal. RV systolic function is normal. There is no RV mass/thrombus. LV/RV SEPTUM: The ventricular septum is intact. LA/RA SEPTUM: The atrial septum is intact. LEFT ATRIUM: LA is moderately enlarged. RIGHT ATRIUM: RA is mildly enlarged. PERICARDIUM: There is a moderate pericardial effusion. Maximum Dimension 12 mm. There is mild RA systolic inversion/collapse. Pericardium is normal. There is a circumferential pericardial effusion. PLEURAL EFFUSION: There is no pleural effusion. AORTIC VALVE: Aortic valve is trileaflet. There is trivial aortic regurgitation. There is no aortic stenosis. MITRAL VALVE: Mitral valve leaflets are normal. There is mild mitral regurgitation. TRICUSPID VALVE: Tricuspid valve leaflets are normal. There is mild tricuspid regurgitation. PULMONIC VALVE: Pulmonic valve leaflets are normal. AORTIC ROOT: The aortic root is normal. CORE EXAM MEASUREMENTS VOLUMETRIC ANALYSIS . ------. . . . LV . Reference . RV . Reference . +------+ +------+ +------+------ ------+ . EDV . ml . 193 . (109-191) . 157 . (105-205) . . . ml/m^2 . 99 . (60-95) . 81 . (56-101) . . ESV . ml . 108 . (27-72) . 67 . (20-80) . . . ml/m^2 . 56 . (14-36) . 35 . (11-40) . . CO . L/min . 6.25 . . 6.66 . . . . L/min/m^2 . 3.21 . . 3.42 . . . MASS . g . 194 . (107-183) . . . . . g/m^2 . 100 . (57-90) . . . . SV . ml . 84 . (73-129) . 90 . (71-139) . . . ml/m^2 . 43 . (40-64) . 46 . (37-69) . . EF . % . 44 . (58-76) . 57 . (55-81) . '------+ +------+ +------+------ ------' CARDIAC OUTPUT HR: 74 BPM LV DIMENSIONS WALL THICKNESS - ANTEROSEPTAL: 1.2 cm WALL THICKNESS - INFEROLATERAL: 0.3 cm WALL THICKNESS - MAXIMUM: 0.6 cm LV FARZANEH: 6.3 cm LV ESD: 5.2 cm LA DIMENSIONS (LV SYSTOLE) DIAMETER: 5.2 cm AREA - 2 CHAMBER: 25.86 cm^2 LENGTH - 2 CHAMBER: 5.7 cm AREA - 4 CHAMBER: 32 cm^2 LENGTH - 4 CHAMBER: 6.7 cm VOLUME: 123 ml VOLUME NORMALIZED: 63.5 ml/m^2 RA DIMENSIONS (RV SYSTOLE) DIAMETER: 5.1 cm AREA - 4 CHAMBER: 22.9 cm^2 LENGTH - 4 CHAMBER: 5.6 cm AORTIC ROOT DIMENSIONS ANNULUS: 2.4 cm SINUS OF VALSALVA: 2.7 cm SINOTUBULAR JUNCTION: 2.4 cm FLOW ANALYSIS QP: 5 L/min QS: 6 L/min QP/QS: 0.96 17 SEGMENT . . . Segments . Wall Motion . Hyperenhancement (more content not included)... Normal [facility] No Panel Informationon 12-26 96\S\96 [facility] [place] [address] DO Work Phone: Comment on above: Random Glucose Refer ence Range is dependent on time and content of last meal. Glucose of more than 200 mg/dL in a nonstressed, ambulatory subject supports the diagnosis of Diabetes Mellitus.PERFORMED BY:[facility] [place], [place] [id number] MEDICAL DIRECTORSHILOH SPRINGER M.D. Activated partial thrombopla stin time (aPTT) in platelet poor plasma by coagulation aOrdered By: Julio Sadler on 12-24-2021 aPTT Coag (PPP) [Time] 35.2 s 25.1-36.5 [facility] Basophils Auto (Bld) [#/Vol] Ordered By: Julio Sadler on 12-24-2021 Basophils (Bld) [#/Vol] 0.0 10*3/uL 0.0-0.2 [facility] Basophils/100 WBC Auto (Bld) Ordered By: Julio Sadler on 12-24-2021 Basophils/100 WBC (Bld) 0.3 % [facility] Blood hemoglobin measurement (mass/volume)Ordered By: Julio Sadler on 12-24-2021 Hemoglobin (Bld) [Mass/Vol] 12.8 g/dL 13.0-17.0 [facility] Blood leukocytes automated c ount (number/volume)Ordered By: Julio Sadler on 12-24-2021 WBC (Bld) [#/Vol] 12.6 10*3/uL 4.5-11.0 [facility] COVID-19 SOFIAOrdered By: Usman Sadler on 12-24-2021 SARS-CoV+SARS-CoV-2 (COVID-19) Ag IA.rapid Ql (Resp) Negative Negative [facility] Comment on above: This is a duplicate Diana SARS Antigen (THEODORE) result to be used for statistical tracking purpose only. Cholesterol [Mass/volume] in Serum or PlasmaOrdered By: Julio Sadler on 12-24-2021 Cholesterol [Mass/Vol] 105 mg/dL 140-200 [facility] Comment on above: Chol less than 200 m g/dl low riskChol 201-239 mg/dl borderline riskChol 240 mg/dl and greater high risk Cholesterol in LDL Calc [Mas s/Vol]Ordered By: Julio Sadler on 12-24-2021 Cholesterol in LDL [Mass/Vol] 39 mg/dL 0-100 [facility] Comment on above: LDL ATP III CLASSIFI CATIONLDL less than 100 mg/dL OptimalLDL 100-129 mg/dL Near or above optimalLDL 130-159 mg/dL Borderline highLDL 160-189 mg/dL HighLDL greater than 189 mg/dL Very high Cholesterol in VLDL Calc [Ma ss/Vol]Ordered By: Julio Sadler on 12-24-2021 Cholesterol in VLDL [Mass/Vol] 25 mg/dL [facility] Creatinine and Glomerular fi ltration rate.predicted panel (S/P/Bld)Ordered By: Julio Sadler on 12-24-2021 Creatinine [Mass/Vol] 0.88 mg/dL 0.64-1.27 [facility] Eosinophils Auto (Bld) [#/Vo l]Ordered By: Julio Sadler on 12-24-2021 Eosinophils (Bld) [#/Vol] 0.2 10*3/uL 0.0-0.45 [facility] Eosinophils/100 WBC Auto (Bl d)Ordered By: Julio Sadler on 12-24-2021 Eosinophils/100 WBC (Bld) 1.7 % [facility] Erythrocyte distribution wid th Auto (RBC) [Ratio]Ordered By: Julio Sadler on 12-24-2021 Erythrocyte distribution width (RBC) [Ratio] 13.2 % 12.0-14.8 [facility] Estimated glomerular filtrat ion rate (GFR) non- AmericanOrdered By: uJlio Sadler on 12-24-2021 GFR/1.73 sq M.predicted among non-blacks MDRD (S/P/Bld) [Vol rate/Area] > 60 mL/Min [facility] Hematocrit Auto (Bld) [Volum e fraction]Ordered By: Julio Sadler on 12-24-2021 Hematocrit (Bld) [Volume fraction] 37.6 % 38.8-50.0 [facility] Laboratory - Chemistry and C hemistry - challengeon 12-24-2021 Cholesterol [Mass/Vol] 105\S\105 below low threshold 140-200 [facility] [place] [address] DO Work Phone: Comment on above: Chol less than 200 m g/dl low risk Chol 201-239 mg/dl borderline risk Chol 240 mg/dl and greater high risk Cholesterol in LDL [Mass/Vol] 39\S\39 Normal 0-100 [facility] [place] [address] DO Work Phone: Comment on above: LDL ATP III CLASSIFI CATION LDL less than 100 mg/dL Optimal LDL 100-129 mg/dL Near or above optimal LDL 130-159 mg/dL Borderline high LDL 160-189 mg/dL High LDL greater than 189 mg/dL Very high Laboratory - CoagulationOrde red By: Julio Sadler on 12-24-2021 PT Coag (PPP) [Time] 13.2 s 9.0-12.9 [facility] Laboratory - Hematology and Cell countsOrdered By: Julio Sadler on 12-24-2021 Nucleated RBC/100 WBC (Bld) [Ratio] 0.0 % 0-0.5 [facility] - Microbiology an d Antimicrobial susceptibilityon 12-24-2021 SARS-CoV-2 (COVID-19) RNA JOSE+probe Ql (Unsp spec) [facility] [address] DO Work Phone: Lymphocytes Auto (Bld) [#/Vo l]Ordered By: Julio Sadler on 12-24-2021 Lymphocytes (Bld) [#/Vol] 1.7 10*3/uL 1.00-4.8 [facility] Lymphocytes/100 WBC Auto (Bl d)Ordered By: Julio Sadler on 12-24-2021 Lymphocytes/100 WBC (Bld) 13.6 % [facility] MCH Auto (RBC) [Entitic mass ]Ordered By: Julio Sadler on 12-24-2021 MCH (RBC) [Entitic mass] 28.5 pg 27.5-35.2 [facility] MCHC Auto (RBC) [Mass/Vol]Or dered By: Julio Sadler on 12-24-2021 MCHC (RBC) [Mass/Vol] 33.9 g/dL 32.5-35.6 [facility] MCV Auto (RBC) [Entitic vol] Ordered By: Julio Sadler on 12-24-2021 MCV (RBC) [Entitic vol] 84.1 fL 83.5-101 [facility] Monocytes Auto (Bld) [#/Vol] Ordered By: Julio Sadler on 12-24-2021 Monocytes (Bld) [#/Vol] 0.8 10*3/uL 0.0-0.8 [facility] Monocytes/100 WBC Auto (Bld) Ordered By: Julio Sadler on 12-24-2021 Monocytes/100 WBC (Bld) 6.7 % [facility] Neutrophils Auto (Bld) [#/Vo l]Ordered By: Julio Sadler on 12-24-2021 Neutrophils (Bld) [#/Vol] 9.8 10*3/uL 1.8-7.7 [facility] Neutrophils/100 WBC Auto (Bl d)Ordered By: Julio Sadler on 12-24-2021 Neutrophils/100 WBC (Bld) 77.7 % [facility] No Panel InformationOrdered By: Julio Sadler on 12-24-2021 Estimated GFR () > 60 mL/Min [facility] Comment on above: GFR estimated refere nce range: According to KDOQI guidelines, <60 ml/min/1.73m2 is sufficient to diagnose a patient with chronic kidney disease. Pharmacy Creatinine Clearance (Chem N/A [facility] SARS Antigen (LFIA) [facility] No Panel Informationon 12-24 35.2\S\35.2 Normal 25.1-36.5 [facility] [place] [address] DO Work Phone: Comment on above: PERFORMED BY:[place] [address] [place], [place] [phone] MEDICAL DIRECTORSHILOH SPRINGER M.D. 1.2\S\1.2 Normal [facility] [place] [place] [address] DO Work Phone: Comment on above: INR Therapeutic Rang e A) Pre- and Peroperative OAT started two weeks before surgery. NOT HIP SURGERY: 1.5 - 2.5 HIP SURGERY: 2 - 3 B) Primary and secondary prevention of venous THROMBOSIS: 2 - 3 C) Active venous thrombosis, pulmonary embolism and prevention of recurrent venous thrombosis: 2 - 3 D) Prevention of arterial thromboembolism including patients with mechanical heart valves: 3 - 4.5 13.2\S\13.2 Normal 12.0-14.8 [facility] [address] DO Work Phone: Negative Normal Negative [facility] [address] DO Work Phone: Comment on above: This is a duplicate Diana SARS Antigen (THEODORE) result to be used for statistical tracking purpose only.PERFORMED BY:[facility] [place], [place] [phone] MEDICAL DIRECTORSHILOH SPRINGER M.D. 77.7\S\77.7 Normal . [facility] [address] DO Work Phone: 10.4\S\10.4 above high threshold 6.6-10.1 [facility] [address] DO Work Phone: 133\S\133 below low threshold 150-450 [facility] [address] DO Work Phone: 33.9\S\33.9 Normal 32.5-35.6 [facility] [address] DO Work Phone: 28.5\S\28.5 Normal 27.5-35.2 [facility] [address] DO Work Phone: 9.8\S\9.8 above high threshold 1.8-7.7 [facility] [address] DO Work Phone: 0.0\S\0.0 Normal 0.0-0.2 [facility] [address] DO Work Phone: Comment on above: PERFORMED BY:[facility] [place], [place] [phone] MEDICAL DIRECTORSHILOH SPRINGER M.D. 0.3\S\0.3 Normal . [facility] [address] DO Work Phone: 1.7\S\1.7 Normal 1.00-4.8 -[facility] [address] DO Work Phone: 6.7\S\6.7 Normal . [facility] [address] DO Work Phone: 13.6\S\13.6 Normal . [facility] [address] DO Work Phone: 0.2\S\0.2 Normal 0.0-0.45 [facility] [address] DO Work Phone: 0.8\S\0.8 Normal 0.0-0.8 [facility] [address] DO Work Phone: 84.1\S\84.1 Normal 83.5-101 [facility] [address] DO Work Phone: 37.6\S\37.6 below low threshold 38.8-50.0 [facility] [address] DO Work Phone: 12.8\S\12.8 below low threshold 13.0-17.0 [facility] [address] DO Work Phone: 4.48\S\4.48 Normal 3.90-5.60 [facility] [address] DO Work Phone: 12.6\S\12.6 above high threshold 4.1-10.5 [facility] [address] DO Work Phone: 25.9\S\25.9 Normal 22.0-30.0 [facility] [address] DO Work Phone: 101\S\101 Normal 95-114 [facility] [address] DO Work Phone: 4.3\S\4.3 Normal 3.5-5.1 [facility] [address] DO Work Phone: 137\S\137 Normal 136-146 [facility] [address] DO Work Phone: 21\S\21 Normal 9-23 [facility] [address] DO Work Phone: > 60 Normal [facility] [address] DO Work Phone: Comment on above: GFR estimated refere nce range: According to KDOQI guidelines, <60 ml/min/1.73m2 is sufficient to diagnose a patient with chronic kidney disease. 0.88\S\0.88 Normal 0.64-1.27 [facility] [place] [address] DO Work Phone: [phone] 2.6\S\2.6 Normal <5.0 [facility] [place] [facility] [place] Work Phone: Comment on above: PERFORMED BY:[facility] [place], [place] [phone] MEDICAL DIRECTORSHILOH SPRINGER M.D. 25\S\25 Normal [facility] [place] [address] Work Phone: [phone] 125\S\125 Normal 35-149 [facility] [place] [address] DO Work Phone: Comment on above: TRIG ATP III CLASSIF ICATION TRIG less than 150 mg/dL Normal TRIG 150-199 mg/dL Borderline high TRIG 200-500 mg/dL High TRIG greater than 500 mg/dL Very high Standard traceable to the Center for Disease Conrtrol and Prevention (CDC) test method. 41\S\41 Normal 29-71 [facility] Work Phone: Comment on above: HDL CHOL ATP-III CLA SSIFICATION Cardiovascular Risk HDL > or equal to 60 mg/dL LOW HDL < 40 mg/dL HIGH Platelet mean volume Auto (B ld) [Entitic vol]Ordered By: Julio Sadler on 12-24-2021 Platelet mean volume (Bld) [Entitic vol] 10.4 fL 6.6-10.1 [facility] Platelet poor plasma interna tional normalized ratio (INR) by coagulation assay (relatOrdered By: Julio Sadler on 12-24-2021 INR Coag (PPP) [Relative time] 1.2 {INR} [facility] Comment on above: INR Therapeutic Rang e A) Pre- and Peroperative OAT started two weeks before surgery. NOT HIP SURGERY: 1.5 - 2.5 HIP SURGERY: 2 - 3B) Primary and secondary prevention of venous THROMBOSIS: 2 - 3C) Active venous thrombosis, pulmonary embolismand prevention of recurrent venous thrombosis: 2 - 3D) Prevention of arterial thromboembolismincluding patients with mechanical heart valves: 3 - 4.5 Platelets Auto (Bld) [#/Vol] Ordered By: Julio Sadler on 12-24-2021 Platelets (Bld) [#/Vol] 133 10*3/uL 150-450 [facility] RBC Auto (Bld) [#/Vol]Ordere d By: Julio Sadler on 12-24-2021 RBC (Bld) [#/Vol] 4.48 10*6/uL 3.90-5.60 [facility] Serum or plasma chloride rin surement (moles/volume)Ordered By: Julio Sadler on 12-24-2021 Chloride [Moles/Vol] 101 mmol/L 95-114 [facility] Serum or plasma high density lipoprotein (HDL) cholesterol measurementOrdered By: Julio Sadler on 12-24-2021 Cholesterol in HDL [Mass/Vol] 41 mg/dL 29-71 [facility] Comment on above: HDL CHOL ATP-III CLA SSIFICATION Cardiovascular RiskHDL > or equal to 60 mg/dL LOWHDL < 40 mg/dL HIGH Serum or plasma potassium me asurement (moles/volume)Ordered By: Julio Sadler on 12-24-2021 Potassium [Moles/Vol] 4.3 mmol/L 3.5-5.1 [facility] Serum or plasma sodium measu rement (moles/volume)Ordered By: Julio Sadler on 12-24-2021 Sodium [Moles/Vol] 137 mmol/L 136-146 [facility] Serum or plasma total carbon dioxide measurement (moles/volume)Ordered By: Julio Sadler on 12-24-2021 CO2 [Moles/Vol] 25.9 mmol/L 22.0-30.0 [facility] Serum or plasma total choles terol/high density lipoprotein (HDL) cholesterol mass ratOrdered By: Julio Sadler on 12-24-2021 Cholesterol.total/Ch olesterol in HDL [Mass ratio] 2.6 {ratio} [facility] Serum or plasma urea nitroge n measurement (mass/volume)Ordered By: Julio Sadler on 12-24-2021 Urea nitrogen [Mass/Vol] 21 mg/dL 9-23 [facility] Triglyceride [Mass/volume] i n Serum or PlasmaOrdered By: Julio Sadler on 12-24-2021 Triglyceride [Mass/Vol] 125 mg/dL 35-149 [facility] Comment on above: TRIG ATP III CLASSIF ICATIONTRIG less than 150 mg/dL NormalTRIG 150-199 mg/dL Borderline highTRIG 200-500 mg/dL High TRIG greater than 500 mg/dL Very highStandard traceable to the Center for Disease Conrtrol and Prevention (CDC) test method. Office Visit (Cardiology)on 12-13-2021 Follow-up visit Diagnoses/Problems Assessed Abnormal stress test (794.39) (R94.39) Hyperlipidemia (272.4) (E78.5) Diabetes mellitus (250.00) (E11.9) Class 1 obesity with body mass index (BMI) of 30.0 to 30.9 in adult (278.00,V85.30) (E66.9,Z68.30) Former smoker (V15.82) (Z87.891) QUIT IN 1999 Cardiomyopathy (425.4) (I42.9) Orders Abnormal stress test, Cardiomyopathy, PMH: Ventricular tachycardia (paroxysmal) Cardiac Catherization; Status:Active - Retrospective Authorization; Requested for:[id number]; Abnormal stress test, Class 1 obesity with body mass index (BMI) of 30.0 to 30.9 in adult, PMH: Ventricular tachycardia (paroxysmal) IO EKG Electrocardiogram- 12 Lead; Status:Complete; Done: [id number] Class 1 obesity with body mass index (BMI) of 30.0 to 30.9 in adult Healthy Weight Tips; Status:Complete - Retrospective Authorization; Done: [id number] SocHx: Former smoker Tobacco Use Screening; Status:Complete; Done: [id number] Patient Instructions By signing my name below, I, Kamille Rizo LPN, Scribe, attest that this documentation has been prepared under the direction and in the presence of Dr. Julio Sadler MD. All medical record entries made by the Scribe were at my direction and personally dictated by me. I have reviewed the chart and agree that the record accurately reflects my personal performance of the history, physical exam, discussion and plan. Please bring all medicines, vitamins, and herbal supplements with you when you come to the office. Prescriptions will not be filled unless you are compliant with your follow up appointments or have a follow up appointment scheduled as per instruction of your physician. Refills should be requested at the time of your visit. Follow-up after testing completed Chief Complaint EAGLE SANDOVAL is being seen for a consultation for abnormal test(s) results and ABN STRESS/ FAWWAD. 60-year-old male who is being seen at request of his family physician to assess recent abnormal cardiac evaluation with echocardiogram and nuclear stress test. The patient was recently diagnosed with diabetes and was placed on medical therapy. He had abnormal EKG for which a nuclear stress test was done revealing fixed perfusion defect in the RCA territory with reduced ejection fraction down to 38%. His echocardiogram showed similar finding ejection fraction 40% with regional wall motion abnormalities. 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 He has no weight gain orthopnea PND lower extremity edema. The patient has quit smoking 20 years ago and has no family history of premature CAD. He denies any clinical events that could be labeled as acute cardiac events. He has no symptoms of heart failure no cardiac arrhythmias and no angina. All other review of systems unremarkable. His physical examination is remarkable for obesity. EKG revealed sinus rhythm with inferior myocardial infarction of undetermined age. His cardiopulmonary examination was normal he has no lower extremity edema. Assessment/recommendations : 1?abnormal nuclear stress test revealing inferior myocardial infarction with reduced ejection fraction down to 38%. Patient had no clinical events suggestive of acute myocardial infarction. The patient was advised that based on his diabetes and his abnormal nuclear stress test and ejection fraction drop invasive cardiac evaluation with heart catheterization is recommended and will be arranged in the next few days. He is already on beta-nenita, statin and aspirin. The procedure with benefits and potential risks were discussed with the patient and his . They both agreed to proceed. 2?abnormal echocardiogram with ejection fraction 40% with regional wall motion normalities in the RCA distribution. Presently does not have any clinical heart failure. Will monitor for the time being and will likely require TC inhibitor's or ARB use. 3?diabetes recently diagnosed on medical therapy 4?hyperlipidemia on rosuvastatin 5?obesity, encouraged weight loss with diet and exercise. Past Medical History Problems History of Ventricular tachycardia (paroxysmal) (427.1) (I47.2) Resolved Date: 13 Dec 2021 Current Meds Medication NameInstruction Aspirin EC 81 MG Oral Tablet Delayed ReleaseTAKE 1 TABLET DAILY. Rosuvastatin Calcium 20 MG Oral TabletTAKE 1 TABLET DAILY. Patient did not bring medication list or bottles. Called [facility] pharmacy in [place] to get medications Allergies Medication No Known Drug Allergies Recorded By: Vania Arshad; 12/13/2021 12:49:38 PM Social History Problems Former smoker (V15.82) (Z87.891) QUIT IN 1999 Review of Systems Constitutional: not feeling tired. Cardiovascular: no intermittent leg claudication and as noted in HPI. Respiratory: no cough and no shortness of breath. Gastrointestinal: no change in bowel habits and no blood in stools. Integumentary: no skin rashes. Neurological: no seiz (more content not included)... Normal [employer] Tobacco Screening.on Adult depression screening assessment No [facility] [address] DO Work Phone: Tobacco use status [facility] b) No [facility] [address] DO Work Phone: Vital Signs Date Time Vital Sign Value Performing Clinician Facility 10-01-2023 10:14-0500 Body height 160 cm Julio Sadler MD Work Phone: [facility] 10-01-2023 10:14-0500 Body mass index (BMI) [Ratio] 34.37 kg/m2 Julio Sadler MD Work Phone: [facility] 10-01-2023 10:14-0500 Body weight 88 kg Julio Sadler MD Work Phone: [facility] 10-01-2023 10:14-0500 Diastolic blood pressure 82 mm[Hg] Julio Sadler MD Work Phone: [facility] 10-01-2023 10:14-0500 Heart rate 72 /min Julio Sadler MD Work Phone: [facility] 10-01-2023 10:14-0500 Systolic blood pressure 138 mm[Hg] Julio Sadler MD Work Phone: [facility] 11-19-2022 00:00-0400 60 1 Shaikh Ramses Work Phone: [facility] 600 DO Work Phone: Comment on above: [facility] 11-05-2022 10:44-0500 Body height 165.1 cm Shaikh Ramses Work Phone: [facility] 250 DO Work Phone: 11-05-2022 10:44-0500 Body mass index (BMI) [Ratio] 31.95 kg/m2 Shaikh Fredrickd Work Phone: [facility] 250 DO Work Phone: 11-05-2022 10:44-0500 Body surface area Derived from formula 1.94 m2 Shaikh Ramses Work Phone: [facility] 250 DO Work Phone: 11-05-2022 10:44-0500 Body weight 87.09 kg Shaikh Ramses Work Phone: [facility] 250 DO Work Phone: 11-05-2022 10:44-0500 Diastolic blood pressure 62 mm[Hg] Shaikh Ectorwad Work Phone: [facility] 250 DO Work Phone: 11-05-2022 10:44-0500 Heart rate 76 /min Shaikh Ectorwad Work Phone: [facility] 250 DO Work Phone: 11-05-2022 10:44-0500 Systolic blood pressure 124 mm[Hg] Shaikh Ectorwad Work Phone: [facility] 250 DO Work Phone: 12-13-2021 12:53-0400 Body height 167.64 cm Shaikh Fredrickd Work Phone: [facility] 250 DO Work Phone: 12-13-2021 12:53-0400 Body mass index (BMI) [Ratio] 30.18 kg/m2 Shaikh Fredrickd Work Phone: [facility] 250 DO Work Phone: 12-13-2021 12:53-0400 Body surface area Derived from formula 1.94 m2 Shaikh Fredrickd Work Phone: [facility] 250 DO Work Phone: 12-13-2021 12:53-0400 Body weight 84.82 kg Shaikh Fredrickd Work Phone: [facility] 250 DO Work Phone: 12-13-2021 12:53-0400 Diastolic blood pressure 72 mm[Hg] Shaikh Ectorwad Work Phone: [facility] 250 DO Work Phone: 12-13-2021 12:53-0400 Heart rate 70 /min Shaikh Ectorwad Work Phone: [facility] 250 DO Work Phone: 12-13-2021 12:53-0400 Systolic blood pressure 110 mm[Hg] Shaikh Ectorwad Work Phone: [facility] 250 DO Work Phone: Encounters Encounter Date Encounter Type Care Provider Facility Start: 05-24-2024 End: 05-24-2024 ambulatory GREGORY LUJAN Not Available Start: 03-02-2024 End: 03-02-2024 ambulatory SHAIKH RAMSES Not Available Start: 12-02-2023 End: 12-02-2023 ambulatory SHAIKH RAMSES Not Available Start: 11-10-2023 End: 11-10-2023 ambulatory GREGORY LUJAN Not Available Start: 10-07-2023 Orders Only Shaikh Ramses HARP Work Phone: [facility] Comment on above: Type 2 diabetes yvonne itus without complication, without long- term current use of insulin (CMS/HCC) (Primary Dx) Start: 10-06-2023 Clinisync Result Encounter Alonzo Pearce MD Work Phone: [facility] External Department Unsolicited Start: 10-06-2023 Clinisync Result Encounter Alonzo Pearce MD Work Phone: [facility] External Department Unsolicited Start: 10-01-2023 End: 10-01-2023 ambulatory JULIO SADLER [facility] Start: 10-01-2023 End: 10-01-2023 Office outpatient visit 25 minutes Julio Sadler MD Work Phone: [facility] Comment on above: 3-vessel coronary ar ben disease; Cardiomyopathy, unspecified type (CMS/HCC); Hyperlipidemia, unspecified hyperlipidemia type; Diabetes mellitus of other type without complication, unspecified whether watermelon inspector insulin use (CMS/HCC); Never smoked any substance Start: 09-02-2023 End: 09-02-2023 ambulatory SHAIKH RAMSES Not Available Start: 01-01-2023 End: 01-02-[address] JULIO SADLER Facility:[facility] Start: 11-21-2022 Patient encounter procedure Shaikh Ramses Work Phone: [facility] 600 DO Work Phone: Start: 11-19-2022 End: 11-20-2022 ambulatory SHAIKH Ruth PEARCE Facility:[facility] Start: 11-05-2022 Office outpatient vi sit 25 minutes Shaikh Ramses Work Phone: [facility] 250 DO Work Phone: Start: 11-05-2022 ambulatory Julio Sadler Facility :[id number] Start: 06-23-2022 End: 06-24-2022 ambulatory SHAIKH Ruth MORENOWAD Facility:[facility] Start: 06-18-2022 End: 06-19-2022 ambulatory STEPHENS H FAGerardoWAD Facility:[facility] Start: 02-04-2022 Chart Update Shaikh Ectorwad Work Phone: [facility] 250 DO Work Phone: Start: 12-30-2021 Patient encounter procedure Shaikh Ectorwad Work Phone: [facility] 250 DO Work Phone: Start: 12-27-2021 Chart Update Shaikh Ectorwad Work Phone: [facility] 250 DO Work Phone: Start: 12-26-2021 ambulatory Almanzararjun Sadler Facility :[id number] Start: 12-26-2021 SURGNON, Provider: Julio Sadler, Status: Pen, Time: 2:00 PM Stephens Jaimeemily Work Phone: [facility] 250 DO Work Phone: Start: 12-26-2021 End: 12-26-2021 ambulatory Stephens Jaimegerardowad Facility:[facility] Start: 12-26-2021 Chart Update Shaikh Ectorwad Work Phone: [facility] 250 DO Work Phone: Start: 12-24-2021 End: 12-24-2021 Patient encounter procedure MD Julio Sadler Work Phone: [facility] Start: 12-13-2021 ambulatory Julio Sadler Facility :[id number] Start: 11-20-2021 ambulatory Julio Sadler Facility :[facility] Procedures Date Procedure Procedure Detail Performing Clinician Start: 10-06-2023 [facility] CH[facility] Pearce MD Work Phone: Start: 10-01-2023 Lipid panel JULIO RAWLS Start: 12-24-2021 SARS Antigen (LFIA) MD Julio Sadler Work Phone: Plan of Treatment Date Care Activity Detail Author Start: 10-06-2024 Urine screening for protein Diabetes: Urine Protein Screening [facility] Start: 07-05-2024 End: 07-05-2024 Patient encounter procedure 07/05/2024 11:10 AM EST Office Visit [facility] [address] [place] [address] Julio Sadler MD [address] [place] [address] [facility] Start: 02-28-2024 Influenza vaccination Influenza Vacc ine (#1) [facility] Comment on above: Postponed from 05/01 (Patient Refused) Start: 01-04-2024 Hemoglobin A1c measurement Diabetes: Hemoglobin A1C [facility] Start: 12-02-2023 End: 12-02-2023 Patient encounter procedure 12/02/2023 3:30 PM EDT Office Visit [facility] [facility] [address] [place] [id number] Shaikh Pearce MD [address] [place] [id number] [facility] Start: 10-01-2023 End: 10-01-2024 Lipid 1996 panel - Serum or Plasma Lipid Panel Lab Routine Hyperlipidemia, unspecified hyperlipidemia type Expected: 10/01/2023 (Approximate), Expires: 10/01/2024 [facility] Service Area Work Phone: Comment on above: Expected: 10/01/2023 (Approximate), Expires: 10/01/2024 Start: 08-04-2023 FUV, Provider: Julio Sadler, Status: Pen, Time: 10:50 AM FUV, Provider: Julio Sadler, Status: Pen, Time: 10:50 AM [facility] [employer] 250 DO Work Phone: Start: 05-01-2023 Influenza vaccination Influenza Vacc ine (#1) [facility] Start: 01-20-2022 FUV, Provider: Julio Sadler, Status: Pen, Time: 3:50 PM FUV, Provider: Julio Sadler, Status: Pen, Time: 3:50 PM [facility] [employer] 250 DO Work Phone: Start: 2008 Zoster Vaccines (1 o f 2) Zoster Vaccines (1 of 2) [facility] Start: 1980 DTaP/Tdap/Td Vaccine s (1 - Tdap) DTaP/Tdap/Td Vaccines (1 - Tdap) [facility] Start: 1977 Urine screening for protein Diabetes: Urine Protein Screening [facility] Start: 1976 Hepatitis C screening Hepatitis C Sc reening [facility] Start: 1968 Diabetic foot examination Diabetes: Foot Exam [facility] Start: 1968 Glaucoma screening Diabetes: R etinopathy Screening [facility] Start: 1964 Pneumococcal Vaccine : 65+ Years (1 - PCV) Pneumococcal Vaccine: 65+ Years (1 - PCV) [facility] Start: 1964 Pneumococcal Vaccine : Pediatrics (0 to 5 Years) and At-Risk Patients (6 to 64 Years) (1 - PCV) Pneumococcal Vaccine: Pediatrics (0 to 5 Years) and At-Risk Patients (6 to 64 Years) (1 - PCV) [facility] Start: 12-20-1959 MMR Vaccines (1 of 1 - Standard series) MMR Vaccines (1 of 1 - Standard series) [facility] Start: 06-20-1959 COVID-19 Vaccine (#1) COVID-19 Vacci ne (#1) [facility] Start: 1958 Hemoglobin A1c measurement Diabetes: Hemoglobin A1C [facility] Start: 1958 HIV screening HIV Scre[facility] Start: 1958 Lipid panel Lipid Panel [facility] Start: 1958 Screening for malign ant neoplasm of colon [facility] Start: 1958 Yearly Adult Physical Yearly Adult P hysical [facility] Payers Date Payer Category Payer Self-pay [id number] 2018 Unknown 1959 Unknown [id number] 1958 Unknown [id number] 2.16. [id number] 1958 Unknown [id number] 2.16. [id number] 1958 Unknown [id number] 2.16. [id number] 1958 Unknown [id number] 2.16.84 0.1.633752.3.579.2.593 1958 Unknown [id number] 2.16.84 0.1.690184.3.579.2.593 1958 Unknown [id number] 2.16.84 0.1.894427.3.579.2.593 1958 Unknown [id number] 2.16.84 0.1.351377.3.579.2.593 1958 Unknown [id number] 2.16.84 0.1.585460.3.579.2.593 1958 Unknown [id number] 2.16.8 40.1.235586.3.579.2.1244 1958 Unknown [id number] 2.16.84 0.1.158863.3.579.2.1259 1958 Unknown [id number] 2.16.84 0.1.722278.3.579.2.1259 1958 Unknown [id number] 2.16.84 0.1.465056.3.579.2.1259 1958 Unknown [id number] 2.16.84 0.1.610812.3.579.2.1259 1958 Unknown [id number] 2.16.840 .1.029306.3.579.2.1259 Unknown [id number] 2.16.8 [id number] Social History Date Type Detail Facility Start: 12-24-2021 Tobacco smoking stat us AZIS Ex-smoker (finding) [facility] Start: 1960 Sex Assigned At Male F [facility] Start: 09-02-2023 End: 10-01-2023 Former smoker Former smoker -[facility] 250 DO Work Phone: Comment on above: QUIT IN 1999; Start: 09-02-2023 End: 10-01-2023 Tobacco smoking status AZIS Never smoked tobacco [facility] Work Phone: Start: 09-02-2023 End: 10-01-2023 Tobacco use and exposure Smokeless tobacco non-user [facility] Work Phone: Start: 09-02-2023 End: 10-01-2023 Alcohol intake Lifetime non-drinker (finding) [facility] Work Phone: Start: 09-02-2023 End: 10-01-2023 Tobacco use panel [facility] Work Phone: Start: 1960 [facility] Start: 09-21-2023 End: 10-01-2023 Exposure to SARS-CoV-2 (event) Not sure [facility] Medical Equipment Procedure Code Equipment Code Equipment Origin al Text Equipment Identifier Dates 1 each by Other route if needed [id number] Start: 06-23-2023 History of Present illness Narrative 10-07-2023 Shaikh Ramses MD - 10/07/2023 1:12 PM EST Note Date & Type Note Facility 10-07-2023 History of Presen t illness Narrative j documented in this encounter [facility] History of Present illness Narrative 10-01-2023 Julio Sadler MD - 10/01/2023 10:30 AM EST Note Date & Type Note Facility 10-01-2023 History of Present illness Narrative Subjective Eagle Sandoval is a 62 y.o. male Chief Complaint Follow-up HPI Patient is in the office for follow-up for the problems noted below accompanied by his . He reports no symptoms of heart failure angina or cardiac arrhythmias. His diabetes seems to be under control. His medical therapy is simple and has been well-tolerated. His weight remains above target the rest of examination was unremarkable. He is scheduled for blood work later this week Assessment/recommendations: 1-severe coronary artery disease confirmed by cardiac catheterization November 2021. He has occlusion of the RCA and left circumflex with 50 to 70% mid LAD stenosis with mature nature of collaterals and ejection fraction 45%. He is symptoms free and because of this and after the case was reviewed interventional cardiology medical therapy was felt to be the right approach. We will continue aggressive modification risk factor for CAD. 2-ischemic cardiopathy stage C functional class II, he is currently on beta-nenita therapy 3-diabetes on medical therapy managed by PCP, A1c below 6 4-hyperlipidemia on rosuvastatin, lipid profile is needed and was ordered 5-class I obesity, encouraged weight loss with diet and exercise. Review of Systems All other systems reviewed and are negative. Visit Vitals BP 138/82 (BP Location: Right arm, Patient Position: Sitting) Pulse 72 Ht 1.6 m (5' 3 ) Wt 88 kg (194 lb) BMI 34.37 kg/m Smoking Status Never BSA 1.98 m Objective Physical Exam Constitutional: Appearance: Normal appearance. He is normal weight. HENT: Nose: Nose normal. Neck: Vascular: No carotid bruit. Cardiovascular: Rate and Rhythm: Normal rate. Pulses: Normal pulses. Heart sounds: Normal heart sounds. Pulmonary: Effort: Pulmonary effort is normal. Abdominal: General: Bowel sounds are normal. Palpations: Abdomen is soft. Genitourinary: Rectum: Normal. Musculoskeletal: General: Normal range of motion. Cervical back: Normal range of motion. Right lower leg: No edema. Left lower leg: No edema. Skin: General: Skin is warm and dry. Neurological: General: No focal deficit present. Mental Status: He is alert. Psychiatric: Mood and Affect: Mood normal. Behavior: Behavior normal. Thought Content: Thought content normal. Judgment: Judgment normal. Current Medications Current Outpatient Medications: aspirin 81 mg EC tablet, Take 1 tablet (81 mg) by mouth once daily., Disp: , Rfl: metFORMIN (Glucophage) 500 mg tablet, Take 1 tablet (500 mg) by mouth every 12 hours., Disp: , Rfl: rosuvastatin (Crestor) 20 mg tablet, Take 1 tablet (20 mg) by mouth once daily., Disp: , Rfl: valsartan (Diovan) 80 mg tablet, Take 1 tablet (80 mg) by mouth once daily., Disp: , Rfl: metoprolol succinate XL (Toprol-XL) 50 mg 24 hr tablet, Take 1 tablet (50 mg) by mouth once daily. Do not crush or chew., Disp: 90 tablet, Rfl: 3 nitroglycerin (Nitrostat) 0.4 mg SL tablet, Place 1 tablet (0.4 mg) under the tongue every 5 minutes if needed for chest pain. May repeat dose every 5 minutes for up to 3 doses total., Disp: 100 tablet, Rfl: 11 Assessment/Plan 1. 3-vessel coronary artery disease metoprolol succinate XL (Toprol-XL) 50 mg 24 hr tablet Follow Up In Cardiology nitroglycerin (Nitrostat) 0.4 mg SL tablet 2. Cardiomyopathy, unspecified type (CMS/HCC) 3. Hyperlipidemia, unspecified hyperlipidemia type Lipid Panel Lipid Panel 4. 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 Never smoked any substance Scribe Attestation By signing my name below, Tammy Coats LPN , Scribe attest that this documentation has been prepared under the direction and in the presence of Julio Sadler MD. documented in this encounter [facility] Work Phone: Instructions 10-01-2023 Patient Instructions Note Date & Type Note Facility 10-01-2023 Instructions Ileana Franco LPN - 10/01/2023 10:30 AM EST Please bring all medicines, vitamins, and herbal supplements with you when you come to the office. Prescriptions will not be filled unless you are compliant with your follow up appointments or have a follow up appointment scheduled as per instruction of your physician. Refills should be requested at the time of your visit. documented in this encounter [facility] Work Phone: Evaluation note Note Date & Type Note Facility Evaluation note No assessment information 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 insulin use ([facility]) Never smoked any substance documented in this encounter [facility] Work Phone: Evaluation note Note Date & Type Note Facility Evaluation note Diagnosis Type 2 diabetes mellitus without complication, without long-term current use of insulin (CMS/HCC)- Primary documented in this encounter [facility] Reason for referral (narrative) Consultation (Routine) - Authorized Note Date & Type Note Facility Reason for referral (narrati ve) Specialty Diagnoses / Procedures Referred By Contac t Referred To Contact Cardiology Diagnoses 3-vessel coronary artery disease Procedures Follow Up In Cardiology Julio Sadler MD [address] [facility] [address], [address] [address] Julio Sadler MD [address], [address] [address] Referral ID Status Reason Start Date Expiration Date V isits Requested Visits Authorized [id number] Authorized 10/01/2023 09/30/2024 1 1 [facility] Work Phone: Chief Complaint and Reason for Visit Chief Complaint Abnormal Stress, Car diomyopathy Family History No Family History Records Found Relationship Condition Age at Onset Recorded Date/T francis Not Specified Diabetes mellitus Unknown father Dementia Unknown Glaucoma Unknown Unknown Family Member Name Dates Details : Mother Status:Active Family history of myocardial infarction: Mother(V17.3, Z82.49) Status:Active Family history of dementia: Father(V17.2, Z81.8) Status:Active Unknown Family Member Name Dates Details : Mother Status:Active Family history of myocardial infarction: Mother(V17.3, Z82.49) Status:Active Family history of dementia: Father(V17.2, Z81.8) Status:Active Unknown Family Member Name Dates Details : Mother Status:Active Family history of myocardial infarction: Mother(V17.3, Z82.49) Status:Active Family history of dementia: Father(V17.2, Z81.8) Status:Active Unknown Family Member Name Dates Details : Mother Status:Active Family history of myocardial infarction: Mother(V17.3, Z82.49) Status:Active Family history of dementia: Father(V17.2, Z81.8) Status:Active Unknown Family Member Name Dates Details : Mother Status:Active Family history of myocardial infarction: Mother(V17.3, Z82.49) Status:Active Family history of dementia: Father(V17.2, Z81.8) Status:Active Unknown Family Member Name Dates Details : Mother Status:Active Family history of myocardial infarction: Mother(V17.3, Z82.49) Status:Active Family history of dementia: Father(V17.2, Z81.8) Status:Active Advance Directives No Advanced Directives Records Found Advance Directive Response Recorded Date/ Time Advance Directives No December 16, 022 1:51pm Summary Purpose Chief Complaint * EAGLE SANDOVAL is being seen for a 6 month follow-up of. * Patient is in the office for follow-up for CAD. Last November 2021 he underwent diagnostic cardiac catheterization which revealed occlusion of the mid RCA and left circumflex with mature [id number] and left to left collateral network. Ejection fraction 45%. He had 50 to 70% mid LAD stenosis. The patient had viability study with cardiac MRI which revealed scars and no viable myocardium. Medical therapy was advised. The patient remains angina free, no arrhythmias and no heart failure. His medicaltherapy was reviewed and ARB was added to his medical regimen. He continues to work full capacity with no symptoms of heart failure chest pain or palpitations. His weight remains above target. His PCP manages his diabetes. His examination only remarkable for obesity. There has been no blood work onthe chart since he was last seen last year. * Assessment/recommendations: * 1 severe coronary artery disease confirmed by cardiac catheterization November 2021. He has occlusion of the RCA and left circumflex with 50 to 70% mid LAD stenosis with mature nature of collaterals andejection fraction 45%. He is symptoms free and because of this and after the case was reviewed inter ventional cardiology medical therapy was felt to be the right approach. We will continue aggressivemodification risk factor for CAD. 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 * 3 diabetes on medical therapy managed by PCP * 4 hyperlipidemia on rosuvastatin, lipid profile is needed and was ordered * 5 obesity, encouraged weight loss with diet and exercise. Additional Source Comments Care Teams (unrecognized sec tion and content) Team Status: Inactive Member Role Status Dates Julio Sadler MD Attending Provider Active Shaikh Ramses MD Primary Care Provider Active Team Status: Active Member Role Status Dates Shaikh Ramses MD Primary Care Provider Active Repertoire Manager Relationship Specialty Start Date End Date Shaikh Pearce MD PCP - General 12/13/21 Repertoire Manager Relationship Specialty Start Date End Date Shaikh Pearce MD PCP - General Internal Medicine 07/01/23 Repertoire Manager Relationship Specialty Start Date End Date Shaikh Pearce MD PCP - General Internal Medicine 07/01/23 Goals (unrecognized section and content) Goals may be documented in a n alternate section (unrecognized sect ion and content) No Status Records FoundNo Status Records FoundNo Status Records FoundNo Status Records FoundNo Status Records FoundNo Status Records FoundNo Status Records Found INFORMATION SOURCE (unrecogn ized section and content) DATE CREATED AUTHOR 02/05/2022 [facility] DATE CREATED AUTHOR AUTHOR'S ORGANIZ ATION 11/07/2022 [facility] DATE CREATED AUTHOR AUTHOR'S ORGANIZ ATION 11/07/2022 [employer] DATE CREATED AUTHOR AUTHOR'S ORGANIZ ATION 01/08/2023 [facility] DATE CREATED AUTHOR AUTHOR'S ORGANIZ ATION 04/03/2023 [facility] DATE CREATED AUTHOR AUTHOR'S ORGANIZ ATION 10/04/[address] [facility] DATE CREATED AUTHOR AUTHOR'S ORGANIZ ATION 05/26/2024 [facility] EPIC Reason for Visit (unrecogniz ed section and content) Reason Comments Follow-up 9 months FOR RECORDS PERTAINING TO PATIENTS WHO ARE OR HAVE BEEN ENROLLED IN A CHEMICAL DEPENDENCY/SUBSTANCEABUSE PROGRAM, SOME INFORMATION MAY BE OMITTED. This clinical summary was aggregated from multiple sources. Caution should be exercised in using it in the provision of clinical care. This summary normalizes information from multiple sources, and as a consequence, information in this document may materially change the coding, format and clinical context of patient data. In addition, data may be omitted in some cases. CLINICAL DECISIONS SHOULD BE BASED ON THE PRIMARY CLINICAL RECORDS. [employer] provides no warranty or guarantee of the accuracy or completeness of information in this document.
[2024-06-02] MEDS: PHENYLEPHRINE HCL 2.5% OP SOL 40 DROP/2 ML BOTTLE OP ×4 (08:21→08:42)
[2024-06-02] MEDS: CYCLOPENTOLATE HCL 1% OP SOL 40 DROP/2 ML BOTTLE OP ×4 (08:22→08:43)
[2024-06-02] MEDS: TROPICAMIDE 1% OP SOL 300 DROP/15 ML BOTTLE OP ×4 (08:22→08:42)
[2024-06-02] MEDS: BESIFLOXACIN HCL 100 DROP DROPS.SUSP OP ×4 (08:23→08:43)
[2024-06-02] MEDS: DIAZEPAM 5 MG TABLET PO (08:26)
[2024-06-02] MEDS: LIDOCAINE 2% JELLY 10 ML TOPICAL (09:19)
[2024-06-02] MEDS: BETADINE POVIDONE-IODINE 5% OP SOL 30 ML BOTTLE OP (09:19)
[2024-06-02] MEDS: PROPARACAINE HCL 0.5% 300 DROP/15 ML BOTTLE OP (09:20)
[2024-06-02 09:29] VITALS: BP 140/79; BP 147/78; PULSE 71; PULSE 72; O2SAT 97; O2SAT 98
[2024-06-02] MEDS: LIDOCAINE HCL 1% PF 20 MG/2 ML VIAL INJ (09:30)
[2024-06-02] MEDS: HYALURONATE SODIUM 16 MG/ML SYRINGE OP (09:30)
[2024-06-02] MEDS: PHENYLEPHRINE/KETOROLAC 1-0.3% ML VIAL 4 ML IRR (09:31)
[2024-06-02] MEDS: CEFUROXIME SODIUM 750 MG, 0.9 % SODIUM CHLORIDE 16.3 ML OP (09:31)
[2024-06-02] MEDS: TETRACAINE HCL 0.5% OP SOL 80 DROP/4 ML BOTTLE OP (09:31)
[2024-06-02] MEDS: APRACLONIDINE HCL 0.5% SOL 100 DROP/5 ML BOTTLE OP (09:37)
[2024-06-02] MEDS: PREDNISOLONE ACETATE OP 1% SUSP 100 DROPS/5 ML 1 DROP OP (09:38)
== END 2024-06-02 09:55 | disposition home or self-care (01) ==
LOC: SURGOUT 08:07
PROVIDERS: Visit Provider Ophthalmology
PROC: (CPT 66984; principal; 2024-06-02 09:30)
DX: H25.11 Age-related nuclear cataract, right eye (principal)
CPT/HCPCS: 66984; J0697; V2630

== ENCOUNTER 2024-07-05 14:46 | Outpatient (OUT) | payer BC, SELFPAY ==
--- OUTSIDE RECORDS SUMMARY | 2024-07-05 15:14 | XMS_ITS | CCD ---
Author Organization [facility] Care Team Providers Care Guard Rail Installer Name Role Phone MD Julio Sadler Attending Provider MD Angelo Pearce Primary Care Provider [phone] Shaikh Pearce Unavailable Unavailable Unavailable Julio Sadler [...] Attending Unavailable FAWWAD, STEPHENS H Admitting Unavailable ZIEBERDR GARRETT Consulting Unavailable FAWWAD, STEPHENS H Attending Unavailable FAWWAD, STEPHENS H Primary Care Unavailable FAWWAD, STEPHENS H Consulting Unavailable Fawwad, Stephens Primary Care Unavailable Julio Sadler Attending Unavailable Julio Sadler Admitting Unavailable Fawwad , Stephens Primary Care Provider JULIO SADLER Attending Unavailable SHAIKH PEARCE Primary Care Unavailable Shaikh Pearce MD Primary Care Provider SHAIKH PEARCE Attending Unavailable GREGORY SOLIS Attending Unavailable ARVIN TUCKER Referring Unavailable SHAIKH PEARCE Attending Unavailable SHAIKH PEARCE Attending Unavailable GREGORY SOLIS Attending Unavailable Arvin Tucker OD Unavailable Fuentes Wilson MD Primary Care Provider Juana CORPORATE TECHNICAL RECRUITER, Tanya Unavailable [phone] Allergies Allergy Classification Reported Allergen(s) Allergy Type Date of Onset Reaction(s) Facility (2 sources) glipiZIDE; Translations: [GLIPIZIDE] Drug Allergy 10-01-2023 [facility] (2 sources) glipiZIDE Drug Allergy 10-01-2023 [facility] Medications Current Medications Medication Drug Class(es) Dates Sig (Normalized) Sig (Original) aspirin 81 mg chewable tablet (10 sources) Platelet Aggregation Inhibitor, Nonsteroidal Anti-inflammatory Drug Start: 12-24-2021 take 81 mg by mouth once daily Aspirin Active 81 MG PO Daily December 24, 2021 4:12pm take 1 tablet by mouth in the mo rning aspirin 81 MG EC tablet Take 81 mg by mouth in the morning. Active Continuous Blood Gluc Banking And Finance Instructor (FreeStyle Toni 2 Atco) device (2 sources) Start: 12-02-2023 End: 12-01-2024 Continuous Blood Gluc Banking And Finance Instructor (FreeStyle Toni 2 Atco) device Indications: Type 2 diabetes mellitus without complication, without long-term current use of insulin (CMS/HCC) 1 each Daily 1 each 12/02/2023 12/01/2024 Active glimepiride 2 mg oral tablet (2 sources) Sulfonylurea Start: 02-12-2024 take 1 tablet by mouth before mealtime glimepiride (Amaryl) 2 MG tablet Indications: Type 2 diabetes mellitus without complication, without long-term current use of insulin (CMS/HCC) TAKE 1 TABLET BY MOUTH IN THE MORNING BEFORE A MEAL 90 tablet 1 02/12/2024 Active glipiZIDE 5 mg oral tablet (8 sources) Sulfonylurea Start: 10-24-2021 End: 10-01-2023 glipiZIDE (Glucotrol) 5 mg tablet Take by mouth once daily. 0 10/24/2021 10/01/2023 Discontinued (Therapy completed) ketorolac tromethamine 5 mg/ml ophthalmic solution (3 sources) Nonsteroidal Anti-inflammatory Drug, Cyclooxygenase Inhibitor Start: 05-24-2024 End: 07-23-2024 take 1 drop(s) into the eye(s) in the morning ketorolac (Acular) 0.5 % ophthalmic solution Indications: Age-related nuclear cataract of both eyes Administer 1 drop into affected eye(s) in the morning and 1 drop before bedtime. 5 mL 1 06/23/2024 07/23/2024 Active metFORMIN hydrochloride 500 mg oral tablet (12 sources) Biguanide Start: 03-22-2024 take 1 tablet by mouth every twelve hours metFORMIN (Glucophage) 500 MG tablet Indications: Type 2 diabetes mellitus with hyperglycemia (CMS/HCC) TAKE 1 TABLET BY MOUTH EVERY 12 HOURS 180 tablet 1 03/22/2024 Active Start: 12-24-2021 take 500 mg by mouth [...] succinate 50 mg extended release oral tablet (13 sources) beta-Adrenergic Nenita Start: 10-01-2023 End: 09-30-2024 take 1 tablet by mouth once daily metoprolol succinate XL (Toprol-XL) 50 MG 24 hr tablet TAKE 1 TABLET (50 MG) BY MOUTH EVERY DAY DO NOT CRUSH OR CHEW 10/01/2023 Active Start: 12-24-2021 take 25 mg by [...] 09/21/2023 Active nitroglycerin 0.4 mg sublingual tablet (3 sources) Nitrate Vasodilator Start: 10-01-2023 End: 09-30-2024 nitroglycerin (Nitrostat) 0.[address] 0.4 mg under the tongue 10/01/2023 09/30/2024 Active ofloxacin 3 mg/ml ophthalmic solution (1 source) Quinolone Antimicrobial Start: 06-23-2024 End: 06-24-2024 take 1 drop(s) into the eye(s) five times daily ofloxacin (Ocuflox) 0.3 % ophthalmic solution Indications: Age-related nuclear cataract of both eyes Administer 1 drop into affected eye(s) 5 (five) times a day for 1 day Starting 1 day before surgery, continue after surgery as directed 5 mL 1 06/23/2024 06/24/2024 Active prednisoLONE acetate 10 mg/ml ophthalmic suspension (2 sources) Corticosteroid Start: 06-23-2024 End: 07-07-2024 prednisoLONE acetate (Pred-Forte) 1 % ophthalmic suspension Indications: Age-related nuclear cataract of both eyes Administer 1 drop into affected eye(s) in the morning and 1 drop at noon and 1 drop in the evening and 1 drop before bedtime. Do all this for 14 days. 5 mL 1 06/23/2024 07/07/2024 Active Start: 05-24-2024 End: 06-07-2024 prednisoLONE acetate (Pred-F orte) 1 % ophthalmic suspension Indications: Age-related nuclear cataract of both eyes Administer 1 drop into affected eye(s) in the morning and 1 drop at noon and 1 drop in the evening and 1 drop before bedtime. Do all this for 14 days. 5 mL 1 05/24/2024 06/07/2024 Active rosuvastatin calcium 20 mg oral tablet (13 sources) HMG-CoA Reductase Inhibitor Start: 06-06-2024 take 1 tablet by mouth once daily rosuvastatin (Crestor) 20 MG tablet Indications: Hyperlipidemia, unspecified hyperlipidemia type (CMS/HCC) Take 1 tablet (20 mg) by mouth Daily 30 tablet 2 06/06/2024 Active Start: 11-17-2023 End: 06-06-2024 take 1 tablet by mouth once daily rosuvastatin (Crestor) 20 MG tablet Indications: Hyperlipidemia, unspecified hyperlipidemia type (CMS/HCC) Take 1 tablet (20 mg) by mouth Daily 90 tablet 1 11/17/2023 06/06/2024 Discontinued (Reorder) Start: 12-24-2021 take 1 tablet by terrell th once daily rosuvastatin (Crestor) 20 MG tablet [...] 01/05/2024 Active valsartan 80 mg oral tablet (7 sources) Angiotensin 2 Receptor Nenita Start: 11-05-2022 take 1 tablet by mouth in the morning valsartan (Diovan) 80 MG tablet Take 80 mg by mouth in the morning. 07/29/2023 Active Problems Active Problems Problem Classification Problem Date Documented Date Episodic/Chronic Cardiac dysrhythmias (10 sources) Paroxysmal ventricular tachycardia; Translations: [Paroxysmal ventricular tachycardia] Onset: 08-28-2023 Resolved: 12-13-2021 08-28-2023 Chronic Cataract (3 sources) Bilateral age-related nuclear cataracts; Translations: [Age-related nuclear cataract, bilateral] Onset: 11-10-2023 11-10-2023 Chronic Coronary atherosclerosis and other heart disease (17 sources) Triple vessel disease of the heart ; Translations: [Coronary atherosclerosis of unspecified type of vessel, [place] or graft] Onset: 11-21-2022 Chronic Comment on above: Cardiac cath November 30 showed occlusion of the RCA and left circumflex with 50-70% LAD stenosis; Diabetes mellitus with complications (8 sources) Type 2 diabetes mellitus with hyperglycemia; Translations: [Type 2 diabetes mellitus with moderate nonproliferative diabetic retinopathy without macular edema, bilateral] Onset: 06-18-2022 Chronic Diabetes mellitus without complication (20 sources) Diabetes mellitus; Translations: [Diabetes mellitus without mention of complication, type II or unspecified type, not stated as uncontrolled] Onset: 11-19-2022 Chronic Disorders of lipid metabolism (16 sources) Hyperlipidemia; Translations: [Other and unspecified hyperlipidemia] Onset: 11-21-2022 10-01-2023 Chronic Essential hypertension (4 sources) Essential hypertension; Translations: [Essential (primary) hypertension] Onset: 09-02-2023 09-02-2023 Chronic Other circulatory disease (2 sources) History of cardiomyopathy; Translations: [Other postprocedural status] Episodic Other nutritional; endocrine; and metabolic disorders (6 sources) Obesity; Translations: [Obesity, unspecified] Chronic Charla-; endo-; and myocarditis; cardiomyopathy (except that caused by tuberculosis or sexually transmitted disease) (12 sources) Cardiomyopathy; Translations: [Other primary cardiomyopathies] Onset: [...] Other Problems Problem Classification Problem Date Documented Date Episodic/Chronic Diabetes mellitus without complication (4 sources) Hyperglycemia; Translations: [Hyperglycemia, unspecified] Onset: 08-28-2023 08-28-2023 Episodic Other screening for suspected conditions (not mental disorders or infectious disease) (17 sources) Cardiovascular stress test abnormal; Translations: [Other nonspecific abnormal results of function study of cardiovascular system] Onset: 12-26-2021 09-09-2023 Episodic Unclassified (1 source) Onset: 10-01-2023 10-01-2023 Results Test Name Value Interpretation Reference Range Facility TB MICROALB CREAT RATIO RAN TAJon 10-06-2023 CREATININE URINE RANDOM 145.39 mg/dL 20.00 - 300.00 mg/dL [facility] Interpretation and review of laboratory results Abnormal [facility] MICROALBUM CREATININE RATIO UR 38.5 mg/g High 0.0 - 29.9 mg/g [facility] Comment on above: NO MICROALBUMINURIA 0-29 MG/G CLINICAL MICROALBUMINURIA 30-300 MG/G MACROALBUMINURIA >300 MG/G MICROALBUMIN URINE RANDOM 5.6 mg/dL NINF - 30.0 mg/dL [facility] SGOTon 01-01-2023 AST [Catalytic activity/Vol] 23 U/L Normal 15-37 [facility] Comment on above: Performed By: #### A LT, AST #### [facility] [address] [place] [address] Dr. Jeremías Gaffney [facility] 01-01-2023 ALT [Catalytic activity/Vol] 46 U/L Normal 16-63 [facility] Comment on above: Performed By: #### A LT, AST #### [facility] [address] [place] [address] Dr. Jeremías Gaffney CBC AUTO DIFFon 11-19-2022 BASO # 0.0 103/ul Normal 0.0-0.1 [facility] Comment on above: Performed By: #### C BC #### [facility] [address] [place] [address] Dr. Jeremías Gaffney Basophils/100 WBC (Bld) 0.5 % Normal 0.2-2.0 [facility] Comment on above: Performed By: #### C BC #### [facility] [address] [place] [address] Dr. Jeremías Gaffney EO # 0.3 103/ul Normal 0.0-0.7 [facility] Comment on above: Performed By: #### C BC #### [facility] [address] [place] [address] Dr. Jeremías Gaffney Eosinophils/100 WBC (Bld) 3.2 % Normal 0.9-7.0 [facility] Comment on above: Performed By: #### C BC #### [facility] [address] [place] [address] Dr. Jeremías Gaffney Erythrocyte distribution width (RBC) [Ratio] 12.6 % Normal 11.0-15.0 [facility] Comment on above: Performed By: #### C BC #### [facility] [address] [place] [address] Dr. Jeremías Gaffney Hematocrit (Bld) [Volume fraction] 44.5 % Normal 42.0-54.0 [facility] Comment on above: Performed By: #### C BC #### [facility] [address] [place] [address] Dr. Jeremías Gaffney Hemoglobin (Bld) [Mass/Vol] 14.4 g/dL Normal 14.0-18.0 [facility] Comment on above: Performed By: #### C BC #### [facility] [address] [place] [address] Dr. Jeremías Gaffney IG # 0.02 10e3/ul Normal 0.00-0.03 [facility] Comment on above: Performed By: #### C BC #### [facility] [address] [place] [address] Dr. Jeremías Gaffney IG % 0.2 % Normal 0.0-0.5 [facility] Comment on above: Performed By: #### C BC #### [facility] [address] [place] [address] Dr. Jeremías Gaffney LYMPH # 1.7 103/ul Normal 1.2-3.8 [facility] Comment on above: Performed By: #### C BC #### [facility] [address] [place] [address] Dr. Jeremías Gaffney Lymphocytes/100 WBC (Bld) 19.7 % Critically low 20.5-60.0 [facility] Comment on above: Performed By: #### C BC #### [facility] [address] [place] [address] Dr. Jeremías Gaffney MANUAL DIFF REQ NO Normal [facility] Comment on above: Performed By: #### C BC #### [facility] [address] [place] [address] Dr. Jeremías Gaffney MCH (RBC) [Entitic mass] 27.7 pg Normal 25.9-34.0 [facility] Comment on above: Performed By: #### C BC #### [facility] [address] [address] [address] Jeremías Gaffney MCHC (RBC) [Mass/Vol] 32.4 g/dL Normal 29.9-35.2 [facility] Comment on above: Performed By: #### C BC #### [facility] [address] [address] [address] Jeremías Gaffney MCV (RBC) [Entitic vol] 85.7 fL Normal 80.0-94.0 [facility] Comment on above: Performed By: #### C BC #### [facility] [address] [address] [address] Jeremías Gaffney MONO # 0.5 103/ul Normal 0.3-0.8 [facility] Comment on above: Performed By: #### C BC #### [facility] [address] [address] [address] Jeremías Gaffney Monocytes/100 WBC (Bld) 5.6 % Normal 1.7-12.0 [facility] Comment on above: Performed By: #### C BC #### [facility] [address] [address] [address] Jeremías Gaffney NEUT # 6.1 103/ul Normal 1.4-6.5 [facility] Comment on above: Performed By: #### C BC #### [facility] [address] [address] [address] Jeremías Gaffney Neutrophils/100 WBC (Bld) 70.8 % Normal 43.0-75.0 [facility] Comment on above: Performed By: #### C BC #### [facility] [address] [address] [address] Jeremías Gaffney Platelet mean volume (Bld) [Entitic vol] 12.3 fL Normal 9.5-13.5 [facility] Comment on above: Performed By: #### C BC #### [facility] [address] [address] [address] Jeremías Gaffney PLT 135 103/ul Critically low 150-450 [facility] Comment on above: Performed By: #### C BC #### [facility] [address] [place] [address] Dr. Jeremías Gaffney RBC 5.19 106/ul Normal 4.70-6.10 [facility] Comment on above: Performed By: #### C BC #### [facility] [address] [place] [address] Dr. Jeremías Gaffney WBC 8.6 103/ul Normal 4.0-11.0 [facility] Comment on above: Performed By: #### C BC #### [facility] [address] [place] [address] Dr. Jeremías Gafnfey GLYCOHEMOGLOBIN A1Con 2022 ADA RECOMMENDATION SEE BELOW Normal [facility] Comment on above: Result Comment: ADA RECOMMENDED LIMIT 4.0 - 6.0 ADA THERAPEUTIC TARGET < 7.0 ACTION SUGGESTED > 7.0 Performed By: #### A LT, AST #### [facility] [address] [place] [address] Dr. Jeremías Gaffney Glucose [Mass/Vol] 137 mg/dL Normal [facility] Comment on above: Performed By: #### A LT, AST #### [facility] [address] [place] [address] Dr. Jeremías Gaffney HbA1c (Bld) [Mass fraction] 6.4 % Critically high 4.5-6.2 [facility] Comment on above: Performed By: #### A LT, AST #### [facility] [address] [place] [address] Dr. Jeremías Gaffney LIPID PROFILEon 11-19-2022 CHOL-HDL RATIO NORM SEE BELOW Normal [facility] Comment on above: Result Comment: 3.3 - 4.4 LOW RISK 4.4 - 7.1 AVERAGE RISK 7.1 - 11.0 MODERATE RISK >11.0 HIGH RISK Performed By: #### A LT, AST #### [facility] [address] [place] [address] Dr. Jeremías Gaffney Cholesterol [Mass/Vol] 140 mg/dL Normal <=200 [facility] Comment on above: Performed By: #### A LT, AST #### [facility] [address] [address] [address] Jeremías Gaffney Cholesterol in HDL [Mass/Vol] 53 mg/dL Normal 40-60 [facility] Comment on above: Performed By: #### A LT, AST #### [facility] [address] [address] [address] Jeremías Gaffney Cholesterol in LDL [Mass/Vol] 60.0 mg/dL Normal [facility] Comment on above: Performed By: #### A LT, AST #### [facility] [address] [place] [address] Dr. Jeremías Gaffney Cholesterol.total/Ch olesterol in HDL [Mass ratio] 2.6 {ratio} Normal [facility] Comment on above: Performed By: #### A LT, AST #### [facility] [address] [address] [address] Jeremías Gaffney HDL NORMAL > or = 60 mg/dl - LO W CARDIOVASCULAR RISK <40 mg/dl - HIGH CARDIOVASCULAR RISK Normal [facility] Comment on above: Performed By: #### A LT, AST #### [facility] [address] [address] [address] Jeremías Gaffney LDL CALC NORMAL SEE BELOW Normal [facility] Comment on above: Result Comment: <100 mg/dl OPTIMAL 100 - 129 mg/dl NEAR OR ABOVE OPTIMAL 130 - 159 mg/dl BORDERLINE HIGH 160 - 189 mg/dl HIGH >190 mg/dl VERY HIGH Performed By: #### A LT, AST #### [facility] [address] [address] [address] Jeremías Gaffney Triglyceride [Mass/Vol] 135 mg/dL Normal <=150 [facility] Comment on above: Performed By: #### A LT, AST #### [facility] [address] [place] [address] Dr. Jeremías Gaffney VLDL CALC 27.0 mg/dL Normal [facility] Comment on above: Performed By: #### A LT, AST #### [facility] [address] [address] [address] Jeremías Gaffney PROF CHEM 8 (BAS METB)on Anion gap [Moles/Vol] 12.0 mmol/L Normal [facility] Comment on above: Performed By: #### A LT, AST, BMP, LIPID #### [facility] [address] [address] [address] Jeremías Gaffney Calcium [Mass/Vol] 9.4 mg/dL Normal 8.5-10.1 [facility] Comment on above: Performed By: #### A LT, AST, BMP, LIPID #### [facility] [address] [place] [address] Dr. Jeremías Gaffney Chloride [Moles/Vol] 105 mmol/L Normal 98-107 [facility] Comment on above: Performed By: #### A LT, AST, BMP, LIPID #### [facility] [address] [place] [address] Dr. Jeremías Gaffney CO2 [Moles/Vol] 29.8 mmol/L Normal 21.0-32.0 [facility] Comment on above: Performed By: #### A LT, AST, BMP, LIPID #### [facility] [address] [place] [address] Dr. Jeremías Gaffney Creatinine [Mass/Vol] 0.77 mg/dL Normal 0.70-1.30 [facility] Comment on above: Performed By: #### A LT, AST, BMP, LIPID #### [facility] [address] [place] [address] Dr. Jeremías Gaffney EGFR-AF [place]IZ[place] >60 Normal >=60 [facility] Comment on above: Performed By: #### A LT, AST, BMP, LIPID #### [facility] [address] [place] [address] Dr. Jeremías Gaffney EGFR-NON AF [place] CITIZ[place] >60 Normal >=60 [facility] Comment on above: Performed By: #### A LT, AST, BMP, LIPID #### [facility] [address] [place] [address] Dr. Jeremías Gaffney Glucose [Mass/Vol] 132 mg/dL Critically high 74-106 [facility] Comment on above: Performed By: #### A LT, AST, BMP, LIPID #### [facility] [address] [address] [address] Jeremías Gaffney Potassium [Moles/Vol] 4.8 mmol/L Normal 3.5-5.1 [facility] Comment on above: Performed By: #### A LT, AST, BMP, LIPID #### [facility] [address] [place] [address] Dr. Jeremías Gaffney Sodium [Moles/Vol] 142 mmol/L Normal 136-145 [facility] Comment on above: Performed By: #### A LT, AST, BMP, LIPID #### [facility] [address] [place] [address] Dr. Jeremías Gaffney Urea nitrogen [Mass/Vol] 20.0 mg/dL Critically high 7.0-18.0 [facility] Comment on above: Performed By: #### A LT, AST, BMP, LIPID #### [facility] [address] [place] [address] Dr. Jeremías Gaffney Urea nitrogen/Creatinine [Mass ratio] 26.0 mg/mg Normal [facility] Comment on above: Performed By: #### A LT, AST, BMP, LIPID #### [facility] [address] [place] [address] Dr. Jeremías Henson 11-19-2022 AST [Catalytic activity/Vol] 49 U/L Critically high 15-37 [facility] Comment on above: Performed By: #### A LT, AST, BMP, LIPID #### [facility] [address] [place] [address] Dr. Jeremías Jasso 11-19-2022 ALT [Catalytic activity/Vol] 81 U/L Critically high 16-63 [facility] Comment on above: Performed By: #### A LT, AST #### [facility] [address] [place] [address] Dr. Jeremías Gaffney Office Visit (Cardiology)on 11-05-2022 [...] mid RCA and left circumflex with mature [id number] and left to left collateral network. Ejection [...] Recorded: 05Nov2022 10:44AM Heart Rate76, L Radial [id number], RUE, Sitting [id number], RUE, Sitting Height5 ft 5 in [id number] lb BMI Jevdjozbny99.95 kg/m2 BSA Calculated1.94 To (more content not included)... Normal [facility] Tobacco Screening.on 023 Adult depression screening assessment No [facility] [employer] [place] [address] DO Work Phone: Fall risk assessment a) No falls within the last year [facility] [employer] [place] [address] DO Work Phone: Tobacco use status [facility] b) No [facility] [employer] [place] 250 DO Work Phone: US ARTERY LEG RTon 2 US ARTERY LEG RT EXAMINATION: US MARISSA [...] GARRETT [place] Date: 2022-06-23 20:08 Normal [facility] CBC AUTO DIFFon 06-18-2022 BASO # 0.1 103/ul Normal 0.0-0.1 [facility] Comment on above: Performed By: #### C BC #### [facility] [address] [place] [address] Dr. Jeremías Gaffney Basophils/100 WBC (Bld) 0.5 % Normal 0.2-2.0 [facility] Comment on above: Performed By: #### C BC #### [facility] [address] [place] [address] Dr. Jeremías Gaffney EO # 0.2 103/ul Normal 0.0-0.7 [facility] Comment on above: Performed By: #### C BC #### [facility] [address] [place] [address] Dr. Jeremías Gaffney Eosinophils/100 WBC (Bld) 1.5 % Normal 0.9-7.0 [facility] Comment on above: Performed By: #### C BC #### [facility] [address] [place] [address] Dr. Jeremías Gaffney Erythrocyte distribution width (RBC) [Ratio] 13.3 % Normal 11.0-15.0 [facility] Comment on above: Performed By: #### C BC #### [facility] [address] [place] [address] Dr. Jeremías Gaffney Hematocrit (Bld) [Volume fraction] 43.2 % Normal 42.0-54.0 [facility] Comment on above: Performed By: #### C BC #### [facility] [address] [place] [address] Dr. Jeremías Gaffney Hemoglobin (Bld) [Mass/Vol] 14.4 g/dL Normal 14.0-18.0 [facility] Comment on above: Performed By: #### C BC #### [facility] [address] [place] [address] Dr. Jeremías Gaffney IG # 0.04 10e3/ul Critically high 0.00-0.03 [facility] Comment on above: Performed By: #### C BC #### [facility] [address] [place] [address] Dr. Jeremías Gaffney IG % 0.4 % Normal 0.0-0.5 [facility] Comment on above: Performed By: #### C BC #### [facility] [address] [place] [address] Dr. Jeremías Gaffney LYMPH # 1.6 103/ul Normal 1.2-3.8 [facility] Comment on above: Performed By: #### C BC #### [facility] [address] [place] [address] Dr. Jeremías Gaffney Lymphocytes/100 WBC (Bld) 15.0 % Critically low 20.5-60.0 [facility] Comment on above: Performed By: #### C BC #### [facility] [address] [place] [address] Dr. Jeremías Gaffney MANUAL DIFF REQ NO Normal [facility] Comment on above: Performed By: #### C BC #### [facility] [address] [place] [address] Dr. Jeremías Gaffney MCH (RBC) [Entitic mass] 28.7 pg Normal 25.9-34.0 [facility] Comment on above: Performed By: #### C BC #### [facility] [address] [place] [address] Dr. Jeremías Gaffney MCHC (RBC) [Mass/Vol] 33.3 g/dL Normal 29.9-35.2 [facility] Comment on above: Performed By: #### C BC #### [facility] [address] [place] [address] Dr. Jeremías Gaffney MCV (RBC) [Entitic vol] 86.1 fL Normal 80.0-94.0 [facility] Comment on above: Performed By: #### C BC #### [facility] [address] [place] [address] Dr. Jeremías Gaffney MONO # 0.5 103/ul Normal 0.3-0.8 [facility] Comment on above: Performed By: #### C BC #### [facility] [address] [place] [address] Dr. Jeremías Gaffney Monocytes/100 WBC (Bld) 4.4 % Normal 1.7-12.0 [facility] Comment on above: Performed By: #### C BC #### [facility] [address] [place] [address] Dr. Jeremías Gaffney NEUT # 8.1 103/ul Critically high 1.4-6.5 [facility] Comment on above: Performed By: #### C BC #### [facility] [address] [address] [address] Jeremías Gaffney Neutrophils/100 WBC (Bld) 78.2 % Critically high 43.0-75.0 [facility] Comment on above: Performed By: #### C BC #### [facility] [address] [address] [address] Jeremías Gaffney Platelet mean volume (Bld) [Entitic vol] 11.9 fL Normal 9.5-13.5 [facility] Comment on above: Performed By: #### C BC #### [facility] [address] [place] [address] Dr. Jeremías Gaffney PLT 161 103/ul Normal 150-450 [facility] Comment on above: Performed By: #### C BC #### [facility] [address] [address] [address] Jeremías Gaffney RBC 5.02 106/ul Normal 4.70-6.10 [facility] Comment on above: Performed By: #### C BC #### [facility] [address] [address] [address] Jeremías Gaffney WBC 10.4 103/ul Normal 4.0-11.0 [facility] Comment on above: Performed By: #### C BC #### [facility] [address] [place] [address] Dr. Jeremías Gaffney GLYCOHEMOGLOBIN A1Con 2021 ADA RECOMMENDATION SEE BELOW Normal [facility] Comment on above: Result Comment: ADA RECOMMENDED LIMIT 4.0 - 6.0 ADA THERAPEUTIC TARGET < 7.0 ACTION SUGGESTED > 7.0 Performed By: #### A 1C #### [facility] [address] [place] [address] Dr. Jeremías Gaffney Glucose [Mass/Vol] 134 mg/dL Normal [facility] Comment on above: Performed By: #### A 1C #### [facility] [address] [address] [address] Jeremías Gaffney HbA1c (Bld) [Mass fraction] 6.3 % Critically high 4.5-6.2 [facility] Comment on above: Performed By: #### A 1C #### [facility] [address] [address] [address] Jeremías Gaffney LIPID PROFILEon 06-18-2022 CHOL-HDL RATIO NORM SEE BELOW Normal [facility] Comment on above: Result Comment: 3.3 - 4.4 LOW RISK 4.4 - 7.1 AVERAGE RISK 7.1 - 11.0 MODERATE RISK >11.0 HIGH RISK Performed By: #### C MP, LIPID #### [facility] [address] [place], [place] [address] Dr. Jeremías Gaffney Cholesterol [Mass/Vol] 110 mg/dL Normal <=200 [facility] Comment on above: Performed By: #### C MP, LIPID #### [facility] [address] [address] [address] Jeremías Gaffney Cholesterol in HDL [Mass/Vol] 52 mg/dL Normal 40-60 [facility] Comment on above: Performed By: #### C MP, LIPID #### [facility] [address] [address] [address] Jeremías Gaffney Cholesterol in LDL [Mass/Vol] 29.2 mg/dL Normal [facility] Comment on above: Performed By: #### C MP, LIPID #### [facility] [address] [place], [place] [address] Dr. Jeremías Gaffney Cholesterol.total/Ch olesterol in HDL [Mass ratio] 2.1 {ratio} Normal [facility] Comment on above: Performed By: #### C MP, LIPID #### [facility] [address] [place], [place] [address] Dr. Jeremías Gaffney HDL NORMAL > or = 60 mg/dl - LO W CARDIOVASCULAR RISK <40 mg/dl - HIGH CARDIOVASCULAR RISK Normal [facility] Comment on above: Performed By: #### C MP, LIPID #### [facility] [address] [place], [place] [address] Dr. Jeremías Gaffney LDL CALC NORMAL SEE BELOW Normal [facility] Comment on above: Result Comment: <100 mg/dl OPTIMAL 100 - 129 mg/dl NEAR OR ABOVE OPTIMAL 130 - 159 mg/dl BORDERLINE HIGH 160 - 189 mg/dl HIGH >190 mg/dl VERY HIGH Performed By: #### C MP, LIPID #### [facility] [address] [place] [address] Dr. Jeremías Gaffney Triglyceride [Mass/Vol] 144 mg/dL Normal <=150 [facility] Comment on above: Performed By: #### C MP, LIPID #### [facility] [address] [place] [address] Dr. Jeremías Gaffney VLDL CALC 28.8 mg/dL Normal [facility] Comment on above: Performed By: #### C MP, LIPID #### [facility] [address] [place] [address] Dr. Jeremías Gaffney PROF 14(COMP METB)on 022 Albumin [Mass/Vol] 3.8 g/dL Normal 3.4-5.0 [facility] Comment on above: Performed By: #### C MP, LIPID #### [facility] [address] [place] [address] Dr. Jeremías Gaffney Albumin/Globulin [Mass ratio] 1.0 {ratio} Normal [facility] Comment on above: Performed By: #### C MP, LIPID #### [facility] [address] [place] [address] Dr. Jeremías Gaffney ALP [Catalytic activity/Vol] 70 U/L Normal 46-116 [facility] Comment on above: Performed By: #### C MP, LIPID #### [facility] [address] [place] [address] Dr. Jeremías Gaffney ALT [Catalytic activity/Vol] 40 U/L Normal 16-63 [facility] Comment on above: Performed By: #### C MP, LIPID #### [facility] [address] [place] [address] Dr. Jeremías Gaffney Anion gap [Moles/Vol] 11.9 mmol/L Normal [facility] Comment on above: Performed By: #### C MP, LIPID #### [facility] [address] [place] [address] Dr. Jeremías Gaffney AST [Catalytic activity/Vol] 18 U/L Normal 15-37 [facility] Comment on above: Performed By: #### C MP, LIPID #### [facility] [address] [place] [address] Dr. Jeremías Gaffney Bilirubin [Mass/Vol] 0.7 mg/dL Normal 0.2-1.0 [facility] Comment on above: Performed By: #### C MP, LIPID #### [facility] [address] [place] [address] Dr. Jeremías Gaffney Calcium [Mass/Vol] 9.0 mg/dL Normal 8.5-10.1 [facility] Comment on above: Performed By: #### C MP, LIPID #### [facility] [address] [place] [address] Dr. Jeremías Gaffney Chloride [Moles/Vol] 103 mmol/L Normal 98-107 [facility] Comment on above: Performed By: #### C MP, LIPID #### [facility] [address] [place] [address] Dr. Jeremías Gaffney CO2 [Moles/Vol] 28.4 mmol/L Normal 21.0-32.0 [facility] Comment on above: Performed By: #### C MP, LIPID #### [facility] [address] [place] [address] Dr. Jeremías Gaffney Creatinine [Mass/Vol] 0.72 mg/dL Normal 0.70-1.30 [facility] Comment on above: Performed By: #### C MP, LIPID #### [facility] [address] [place] [address] Dr. Jeremías Gaffney EGFR-AF [place]IZ[place] >60 Normal >=60 [facility] Comment on above: Performed By: #### C MP, LIPID #### [facility] [address] [place] [address] Dr. Jeremías Gaffney EGFR-NON AF [place] CITIZ[place] >60 Normal >=60 [facility] Comment on above: Performed By: #### C MP, LIPID #### [facility] [address] [place] [address] Dr. Jeremías Gaffney Globulin (S) [Mass/Vol] 3.8 g/dL Normal [facility] Comment on above: Performed By: #### C MP, LIPID #### [facility] [address] [address] [address] Jeremías Gaffney Glucose [Mass/Vol] 106 mg/dL Normal 74-106 [facility] Comment on above: Performed By: #### C MP, LIPID #### [facility] [address] [address] [address] Jeremías Gaffney Potassium [Moles/Vol] 4.3 mmol/L Normal 3.5-5.1 [facility] Comment on above: Performed By: #### C MP, LIPID #### [facility] [address] [address] [address] Jeremías Gaffney Protein [Mass/Vol] 7.6 g/dL Normal 6.4-8.2 [facility] Comment on above: Performed By: #### C MP, LIPID #### [facility] [address] [place] [address] Dr. Jeremías Gaffney Sodium [Moles/Vol] 139 mmol/L Normal 136-145 [facility] Comment on above: Performed By: #### C MP, LIPID #### [facility] [address] [place] [address] Dr. Jeremías Gaffney Urea nitrogen [Mass/Vol] 19.0 mg/dL Critically high 7.0-18.0 [facility] Comment on above: Performed By: #### C MP, LIPID #### [facility] [address] [place] [address] Dr. Jeremías Gaffney Urea nitrogen/Creatinine [Mass ratio] 26.4 mg/mg Normal [facility] Comment on above: Performed By: #### C MP, LIPID #### [facility] [address] [place] [address] Dr. Jeremías Gaffney MRI Cardiac w/wo contrast fo r Morph/Funct and Valve Dzon 01-30-2022 MRI Cardiac w/wo contrast for Morph/Funct and Valve Dz Normal -[facility] [address] DO Work Phone: TH MRI CARDIAC RESONANCE YARA GING FOR VELOCITY FLOW MAPPINGon 01-30-2022 MRI CARDIAC RESONANCE IMAGING FOR VELOCITY FLOW MAPPING [facility] CMR Report Name: EAGLE SANDOVAL : 1960 Scan Date: 2022-01-30 11:10:00 Electronically signed by SHARAN THOMAS 10:03:32 GENERAL INFORMATION HEIGHT: 66.00 in (167.64 cm) WEIGHT: 187.00 lbs (84.82 kgs) BSA: 1.94 m^2 BP: 110 / 72 mmHg BASELINE HR: 73 BPM SCAN LOCATION: [facility] REFERRING PHYSICIAN: JULIO SADLER ATTENDING PHYSICIAN: JULIO SADLER TECHNOLOGIST: RAZA SORIA ACCESSION NUMBER: [id number] CPT CODES: 39667 ICD10 CODES: I42.9, [ , ]I25.10 SUMMARY [...] . Hyperenhancement (more content not included)... Normal [facility] MRI CARDIAC W/WO CONTRAST FOR MORPH/FUNCT AND VALVE DZon 01-30-2022 MRI CARDIAC W/WO CONTRAST FOR MORPH/FUNCT AND VALVE [facility] CMR Report Name: EAGLE SANDOVAL : 1960 Scan Date: 2022-01-30 11:10:00 Electronically signed by SHARAN THOMAS 10:03:32 GENERAL INFORMATION HEIGHT: 66.00 in (167.64 cm) WEIGHT: 187.00 lbs (84.82 kgs) BSA: 1.94 m^2 BP: 110 / 72 mmHg BASELINE HR: 73 BPM SCAN LOCATION: [facility] REFERRING PHYSICIAN: JULIO SADLER ATTENDING PHYSICIAN: JULIO SADLER TECHNOLOGIST: RAZA SORIA ACCESSION NUMBER: [id number] CPT CODES: 35661 ICD10 CODES: I42.9, [ , ]I25.10 SUMMARY [...] . Hyperenhancement (more content not included)... Normal [facility] No Panel Informationon 12-26 96\S\96 Normal [facility] [address] DO Work Phone: Comment on above: Random Glucose Refer ence Range is dependent on time and content of last meal. Glucose of more than 200 mg/dL in a nonstressed, ambulatory subject supports the diagnosis of Diabetes Mellitus.PERFORMED BY:[id number] [place], [place] [id number] MEDICAL DIRECTORSHILOH SPRINGER M.D. Activated partial thrombopla stin time (aPTT) in platelet poor plasma by coagulation aOrdered By: Julio Sadler on 12-24-2021 aPTT Coag (PPP) [Time] 35.2 s 25.1-36.5 [facility] [place] Basophils Auto (Bld) [#/Vol] Ordered By: Julio Sadler on 12-24-2021 Basophils (Bld) [#/Vol] 0.0 10*3/uL 0.0-0.2 [facility] [place] Basophils/100 WBC Auto (Bld) Ordered By: Julio Sadler on 12-24-2021 Basophils/100 WBC (Bld) 0.3 % [facility] [place] Blood hemoglobin measurement (mass/volume)Ordered By: Julio Sadler on 12-24-2021 Hemoglobin (Bld) [Mass/Vol] 12.8 g/dL 13.0-17.0 [facility] [place] Blood leukocytes automated c ount (number/volume)Ordered By: Julio Sadler on 12-24-2021 WBC (Bld) [#/Vol] 12.6 10*3/uL 4.5-11.0 [facility] COVID-19 SOFIAOrdered By: Mary armin Doroteo on 12-24-2021 SARS-CoV+SARS-CoV-2 (COVID-19) Ag IA.rapid Ql (Resp) Negative Negative [facility] [place] Comment on above: This is a duplicate Diana SARS Antigen (THEODORE) result to be used for statistical tracking purpose only. Cholesterol [Mass/volume] in Serum or PlasmaOrdered By: Julio Sadler on 12-24-2021 Cholesterol [Mass/Vol] 105 mg/dL 140-200 [facility] [place] Comment on above: Chol less than 200 m g/dl low riskChol 201-239 mg/dl borderline riskChol 240 mg/dl and greater high risk Cholesterol in LDL Calc [Mas s/Vol]Ordered By: Julio Sadler on 12-24-2021 Cholesterol in LDL [Mass/Vol] 39 mg/dL 0-100 [facility] [place] Comment on above: LDL ATP III CLASSIFI CATIONLDL less than 100 mg/dL OptimalLDL 100-129 mg/dL Near or above optimalLDL 130-159 mg/dL Borderline highLDL 160-189 mg/dL HighLDL greater than 189 mg/dL Very high Cholesterol in VLDL Calc [Ma ss/Vol]Ordered By: Julio Sadler on 12-24-2021 Cholesterol in VLDL [Mass/Vol] 25 mg/dL [facility] [place] Creatinine and Glomerular fi ltration rate.predicted panel (S/P/Bld)Ordered By: Julio Sadler on 12-24-2021 Creatinine [Mass/Vol] 0.88 mg/dL 0.64-1.27 [facility] [place] Eosinophils Auto (Bld) [#/Vo l]Ordered By: Julio Sadler on 12-24-2021 Eosinophils (Bld) [#/Vol] 0.2 10*3/uL 0.0-0.45 [facility] [place] Eosinophils/100 WBC Auto (Bl d)Ordered By: Julio Sadler on 12-24-2021 Eosinophils/100 WBC (Bld) 1.7 % [facility] [place] Erythrocyte distribution wid th Auto (RBC) [Ratio]Ordered By: Julio Sadler on 12-24-2021 Erythrocyte distribution width (RBC) [Ratio] 13.2 % 12.0-14.8 [facility] [place] Estimated glomerular filtrat ion rate (GFR) non- AmericanOrdered By: Julio Sadler on 12-24-2021 GFR/1.73 sq M.predicted among non-blacks MDRD (S/P/Bld) [Vol rate/Area] > 60 mL/Min [facility] Hematocrit Auto (Bld) [Volum e fraction]Ordered By: Julio Sadler on 12-24-2021 Hematocrit (Bld) [Volume fraction] 37.6 % 38.8-50.0 [facility] [place] Laboratory - Chemistry and C hemistry - challengeon 12-24-2021 Cholesterol [Mass/Vol] 105\S\105 below low threshold 140-200 [facility] [employer]C[facility] Hospital[facility] DO Work Phone: Comment on above: Chol less than 200 m g/dl low risk Chol 201-239 mg/dl borderline risk Chol 240 mg/dl and greater high risk Cholesterol in LDL [Mass/Vol] 39\S\39 Normal 0-100 [address] [place] [address] DO Work Phone: Comment on above: LDL ATP III CLASSIFI CATION LDL less than 100 mg/dL Optimal LDL 100-129 mg/dL Near or above optimal LDL 130-159 mg/dL Borderline high LDL 160-189 mg/dL High LDL greater than 189 mg/dL Very high Laboratory - CoagulationOrde red By: Julio Sadler on 12-24-2021 PT Coag (PPP) [Time] 13.2 s 9.0-12.9 [facility] Laboratory - Hematology and Cell countsOrdered By: Julio Sadler on 12-24-2021 Nucleated RBC/100 WBC (Bld) [Ratio] 0.0 % 0-0.5 [facility] [place] Laboratory - Microbiology an d Antimicrobial susceptibilityon 12-24-2021 SARS-CoV-2 (COVID-19) RNA JOSE+probe Ql (Unsp spec) [facility] [facility] [address] DO Work Phone: Lymphocytes Auto (Bld) [#/Vo l]Ordered By: Julio Sadler on 12-24-2021 Lymphocytes (Bld) [#/Vol] 1.7 10*3/uL 1.00-4.8 [facility] Lymphocytes/100 WBC Auto (Bl d)Ordered By: Julio Sadler on 12-24-2021 Lymphocytes/100 WBC (Bld) 13.6 % [facility] MCH Auto (RBC) [Entitic mass ]Ordered By: Julio Sadler on 12-24-2021 MCH (RBC) [Entitic mass] 28.5 pg 27.5-35.2 [facility] MCHC Auto (RBC) [Mass/Vol]Or dered By: Julio Sadler on 12-24-2021 MCHC (RBC) [Mass/Vol] 33.9 g/dL 32.5-35.6 [facility] MCV Auto (RBC) [Entitic vol] Ordered By: Julio Sadler on 12-24-2021 MCV (RBC) [Entitic vol] 84.1 fL 83.5-101 [facility] Monocytes Auto (Bld) [#/Vol] Ordered By: Julio Sadler on 12-24-2021 Monocytes (Bld) [#/Vol] 0.8 10*3/uL 0.0-0.8 [facility] Monocytes/100 WBC Auto (Bld) Ordered By: Julio Sadler on 12-24-2021 Monocytes/100 WBC (Bld) 6.7 % [facility] Neutrophils Auto (Bld) [#/Vo l]Ordered By: Julio Sadler on 12-24-2021 Neutrophils (Bld) [#/Vol] 9.8 10*3/uL 1.8-7.7 [facility] Neutrophils/100 WBC Auto (Bl d)Ordered By: Julio Sadler on 12-24-2021 Neutrophils/100 WBC (Bld) 77.7 % [facility] No Panel InformationOrdered By: Julio Sadler on 12-24-2021 Estimated GFR () > 60 mL/Min [facility] Comment on above: GFR estimated refere nce range: According to KDOQI guidelines, <60 ml/min/1.73m2 is sufficient to diagnose a patient with chronic kidney disease. Pharmacy Creatinine Clearance (Chem N/A [facility] [place] SARS Antigen (LFIA) [facility] No Panel Informationon 12-24 35.2\S\35.2 Normal 25.1-36.5 [facility] [address] DO Work Phone: Comment on above: PERFORMED BY:[facility] [place], [place] [id number] MEDICAL DIRECTORSHILOH SPRINGER M.D. 1.2\S\1.2 Normal [facility] [address] DO Work Phone: [...] valves: 3 - 4.5 13.2\S\13.2 Normal 12.0-14.8 [facility] [address] DO Work Phone: [phone] Negative Normal Negative [facility] [address] DO Work Phone: Comment on above: This is a duplicate Diana SARS Antigen (THEODORE) result to be used for statistical tracking purpose only.PERFORMED BY:[facility] [place] [id number] MEDICAL DIRECTORSHILOH SPRINGER M.D. 77.7\S\77.7 Normal . [facility] [address] DO Work Phone: 10.4\S\10.4 above high threshold 6.6-10.1 [facility] [address] DO Work Phone: [phone] 133\S\133 below low threshold 150-450 [facility] [address] DO Work Phone: 33.9\S\33.9 Normal 32.5-35.6 [facility] [address] DO Work Phone: 28.5\S\28.5 Normal 27.5-35.2 [facility] [address] DO Work Phone: 9.8\S\9.8 above high threshold 1.8-7.7 [facility] [address] DO Work Phone: 0.0\S\0.0 Normal 0.0-0.2 [facility] [address] DO Work Phone: Comment on above: PERFORMED BY:[place] [address] [place], [place] [phone] MEDICAL DIRECTORSHILOH SPRINGER M.D. 0.3\S\0.3 Normal . [facility] [address] DO Work Phone: 1.7\S\1.7 Normal 1.00-4.8 [facility] [address] DO Work Phone: 6.7\S\6.7 Normal . [facility] [address] DO Work Phone: 13.6\S\13.6 Normal . [facility] [address] DO Work Phone: 0.2\S\0.2 Normal 0.0-0.45 [facility] [address] DO Work Phone: 0.8\S\0.8 Normal 0.0-0.8 [facility] [address] DO Work Phone: 84.1\S\84.1 Normal 83.5-101 [facility] [address] DO Work Phone: 37.6\S\37.6 below low threshold 38.8-50.0 [facility] [address] DO Work Phone: 12.8\S\12.8 below low threshold 13.0-17.0 [facility] [address] DO Work Phone: 4.48\S\4.48 Normal 3.90-5.60 [facility] [address] DO Work Phone: [phone] 12.6\S\12.6 above high threshold 4.1-10.5 [facility] [address] DO Work Phone: 25.9\S\25.9 Normal 22.0-30.0 [facility] [address] DO Work Phone: 101\S\101 Normal 95-114 [facility] [address] DO Work Phone: 4.3\S\4.3 Normal 3.5-5.1 [facility] [address] DO Work Phone: 137\S\137 Normal 136-146 [facility] [address] DO Work Phone: 21\S\21 Normal 9-23 [facility] [address] DO Work Phone: > 60 Normal [facility] [facility] [facility] DO Work Phone: [phone] Comment on above: GFR estimated refere nce range: According to KDOQI guidelines, <60 ml/min/1.73m2 is sufficient to diagnose a patient with chronic kidney disease. 0.88\S\0.88 Normal 0.64-1.27 [facility] [address] DO Work Phone: [phone] 2.6\S\2.6 Normal <5.0 [facility] [address] DO Work Phone: [phone] Comment on above: PERFORMED BY:[place] [address] [place] [place] [phone] MEDICAL DIRECTORJIANLAN SUN M.D. 25\S\25 Normal [facility] 250 DO Work Phone: 125\S\125 Normal 35-149 [facility] [place] [facility] [place] Work Phone: Comment on above: TRIG ATP III CLASSIF ICATION TRIG less than 150 mg/dL Normal TRIG 150-199 mg/dL Borderline high TRIG 200-500 mg/dL High TRIG greater than 500 mg/dL Very high Standard traceable to the Center for Disease Conrtrol and Prevention (CDC) test method. 41\S\41 Normal 29-71 [facility] [place] [facility] [place] Work Phone: Comment on above: HDL CHOL ATP-III CLA SSIFICATION Cardiovascular Risk HDL > or equal to 60 mg/dL LOW HDL < 40 mg/dL HIGH Platelet mean volume Auto (B ld) [Entitic vol]Ordered By: Julio Sadler on 12-24-2021 Platelet mean volume (Bld) [Entitic vol] 10.4 fL 6.6-10.1 [facility] Platelet poor plasma interna tional normalized ratio (INR) by coagulation assay (relatOrdered By: Julio Sadler on 12-24-2021 INR Coag (PPP) [Relative time] 1.2 {INR} [facility] Comment on above: INR Therapeutic Rang e [...] 12-24-2021 Platelets (Bld) [#/Vol] 133 10*3/uL 150-450 [facility] RBC Auto (Bld) [#/Vol]Ordere d By: Julio Sadler on 12-24-2021 RBC (Bld) [#/Vol] 4.48 10*6/uL 3.90-5.60 [facility] Serum or plasma chloride rin surement (moles/volume)Ordered By: Julio Sadler on 12-24-2021 Chloride [Moles/Vol] 101 mmol/L 95-114 [facility] Serum or plasma high density lipoprotein (HDL) cholesterol measurementOrdered By: Julio Sadler on 12-24-2021 Cholesterol in HDL [Mass/Vol] 41 mg/dL 29-71 [facility] Comment on above: HDL CHOL ATP-III CLA SSIFICATION Cardiovascular RiskHDL > or equal to 60 mg/dL LOWHDL < 40 mg/dL HIGH Serum or plasma potassium me asurement (moles/volume)Ordered By: Julio Sadler on 12-24-2021 Potassium [Moles/Vol] 4.3 mmol/L 3.5-5.1 [facility] Serum or plasma sodium measu rement (moles/volume)Ordered By: Julio Sadler on 12-24-2021 Sodium [Moles/Vol] 137 mmol/L 136-146 [facility] Serum or plasma total carbon dioxide measurement (moles/volume)Ordered By: Juloi Sadler on 12-24-2021 CO2 [Moles/Vol] 25.9 mmol/L 22.0-30.0 [facility] Serum or plasma total choles terol/high density lipoprotein (HDL) cholesterol mass ratOrdered By: Julio Sadler on 12-24-2021 Cholesterol.total/Ch olesterol in HDL [Mass ratio] 2.6 {ratio} [facility] Serum or plasma urea nitroge n measurement (mass/volume)Ordered By: Julio Sadler on 12-24-2021 Urea nitrogen [Mass/Vol] 21 mg/dL 9-23 [facility] Triglyceride [Mass/volume] i n Serum or PlasmaOrdered By: Julio Sadler on 12-24-2021 Triglyceride [Mass/Vol] 125 mg/dL 35-149 [facility] Comment on above: TRIG ATP III CLASSIF [...] Cardiac Catherization; Status:Active - Retrospective Authorization; Requested for:[id number]; Abnormal stress test, Class 1 obesity with body mass index (BMI) of 30.0 to 30.9 in adult, PMH: Ventricular tachycardia (paroxysmal) IO EKG Electrocardiogram- 12 Lead; Status:Complete; Done: [id number] Class 1 obesity with body mass index (BMI) of 30.0 to 30.9 in adult Healthy Weight Tips; Status:Complete - Retrospective Authorization; Done: [id number] SocHx: Former smoker Tobacco Use Screening; Status:Complete; Done: [id number] Patient Instructions By signing my name below, I, Kamille Rizo LPN, Scribe, attest that this documentation has been prepared under the direction and in the presence of Dr. Julio Sadler MD. All medical record entries made by the Chuckyibtrever were at my direction and personally dictated [...] motion abnormalities. 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 Called [facility] pharmacy in [place] to get medications Allergies Medication No Known [...] no seiz (more content not included)... Normal [employer] Tobacco Screening.on 022 Adult depression screening assessment No [facility] [address] DO Work Phone: Tobacco use status CPHS b) No [facility] [address] DO Work Phone: Vital Signs Date Time Vital Sign Value Performing Clinician Facility 10-01-2023 10:14-0500 Body height 160 cm Julio Sadler MD Work Phone: [facility] 10-01-2023 10:14-0500 Body mass index (BMI) [Ratio] 34.37 kg/m2 Julio Sadler MD Work Phone: [facility] 10-01-2023 10:14-0500 Body weight 88 kg Julio Sadler MD Work Phone: [facility] 10-01-2023 10:14-0500 Diastolic blood pressure 82 mm[Hg] Julio Sadler MD Work Phone: [facility] 10-01-2023 10:14-0500 Heart rate 72 /min Julio Sadler MD Work Phone: [facility] 10-01-2023 10:14-0500 Systolic blood pressure 138 mm[Hg] Julio Sadler MD Work Phone: [facility] 11-19-2022 00:00-0400 60 1 Shaikh Ramses Work Phone: [facility] 600 DO Work Phone: Comment on above: FSL 11-05-2022 10:44-0500 Body height 165.1 cm Shaikh Ramses Work Phone: [facility] 250 DO Work Phone: 11-05-2022 10:44-0500 Body mass index (BMI) [Ratio] 31.95 kg/m2 Shaikh Ectorwad Work Phone: [facility] 250 DO Work Phone: 11-05-2022 10:44-0500 Body surface area Derived from formula 1.94 m2 Shaikh Ectorwad Work Phone: [facility] 250 DO Work Phone: 11-05-2022 10:44-0500 Body weight 87.09 kg Shaikh Ectorwad Work Phone: [facility] 250 DO Work Phone: 11-05-2022 10:44-0500 Diastolic blood pressure 62 mm[Hg] Shaikh Ectorwad Work Phone: [facility] 250 DO Work Phone: 11-05-2022 10:44-0500 Heart rate 76 /min Shaikh Ectorwad Work Phone: [facility] 250 DO Work Phone: 11-05-2022 10:44-0500 Systolic blood pressure 124 mm[Hg] Shaikh Ectorwad Work Phone: [facility] 250 DO Work Phone: 12-13-2021 12:53-0400 Body height 167.64 cm Shaikh Ectorwad Work Phone: [facility] 250 DO Work Phone: 12-13-2021 12:53-0400 Body mass index (BMI) [Ratio] 30.18 kg/m2 Stephens Fawwad Work Phone: [facility] 250 DO Work Phone: 12-13-2021 12:53-0400 Body surface area Derived from formula 1.94 m2 Shaikh Fredrickd Work Phone: [facility] 250 DO Work Phone: 12-13-2021 12:53-0400 Body weight 84.82 kg Shaikh Fredrickd Work Phone: [facility] 250 DO Work Phone: 12-13-2021 12:53-0400 Diastolic blood pressure 72 mm[Hg] Shaikh Fredrickd Work Phone: [facility] 250 DO Work Phone: 12-13-2021 12:53-0400 Heart rate 70 /min Shaikh Ectorwad Work Phone: [facility] 250 DO Work Phone: 12-13-2021 12:53-0400 Systolic blood pressure 110 mm[Hg] Shaikh Fredrickd Work Phone: [facility] [employer] 250 DO Work Phone: Encounters Encounter Date Encounter Type Care Provider Facility Start: 06-23-2024 End: 06-23-2024 Refill Paulette Webb COT Work Phone: [facility] Comment on above: Age-related nuclear cataract of both eyes (Primary Dx) Start: 06-06-2024 End: 06-06-2024 Refill Tanya Arias CORPORATE TECHNICAL RECRUITER Work Phone: [facility] Comment on above: Hyperlipidemia, unsp ecified hyperlipidemia type (CMS/HCC) Start: 05-24-2024 End: 05-24-2024 ambulatory GREGORY SOLIS Not Available Start: 03-02-2024 End: 03-02-2024 ambulatory STEPHENS FAWWAD Not Available Start: 12-02-2023 End: 12-02-2023 ambulatory STEPHENS FAWWAD Not Available Start: 11-10-2023 End: 11-10-2023 ambulatory GREGORY SOLIS Not Available Start: 10-07-2023 Orders Only Shaikh Ramses HARP Work Phone: [facility] Comment on above: Type 2 diabetes yvonne itus without complication, without long- term current use of insulin (CMS/HCC) (Primary Dx) Start: 10-06-2023 Clinisync Result Encounter Shaikh Ramses HARP Work Phone: [facility] External Department Unsolicited Start: 10-06-2023 Clinisync Result Encounter Shaikh Ramses HARP Work Phone: [facility] Unsolicited Start: 10-01-2023 End: 10-01-2023 ambulatory JULIO [facility]ig[facility] Ambulatory Start: 10-01-2023 End: 10-01-2023 Office outpatient visit 25 minutes Julio Sadler MD Work Phone: [facility] Comment on above: 3-vessel coronary ar ben disease; Cardiomyopathy, unspecified type (CMS/HCC); Hyperlipidemia, unspecified hyperlipidemia type; Diabetes mellitus of other type without complication, unspecified whether [facility] insulin use (CMS/HCC); Never smoked any substance Start: 09-02-2023 End: 09-02-2023 ambulatory SHAIKH RAMSES Not Available Start: 01-01-2023 End: 01-02-[address] JULIO SADLER Facility:[facility]1 Start: 11-21-2022 Patient encounter procedure Shaikh Ramses [facility] Work Phone: Start: 11-19-2022 End: 11-20-2022 ambulatory SHAIKH Ruth PEARCE Facility:[facility]1 Start: 11-05-2022 Office outpatient vi sit 25 minutes Shaikh Ramses [facility] Work Phone: Start: 11-05-2022 ambulatory Julio Sadler Facility : Start: 06-23-2022 End: 06-24-2022 ambulatory STEPHENS H VANIAMIRZADee Facility:[facility]1 Start: 06-18-2022 End: 06-19-2022 ambulatory SHAIKH Ruth PEARCE Facility:[facility]1 Start: 02-04-2022 Chart Update Stephens Ramses Work Phone: [facility] 250 DO Work Phone: Start: 12-30-2021 Patient encounter procedure Shaikh Ramses Work Phone: [facility] 250 DO Work Phone: Start: 12-27-2021 Chart Update Stephens Ramses Work Phone: [facility] 250 DO Work Phone: Start: 12-26-2021 ambulatory Julio Sadler Facility :[id number] Start: 12-26-2021 SURGNON, Provider: Julio Sadler, Status: Pen, Time: 2:00 PM Shaikh Ramses Work Phone: [facility] 250 DO Work Phone: Start: 12-26-2021 End: 12-26-2021 ambulatory Shaikh Ramses Facility:[facility] Start: 12-26-2021 Chart Update Shaikh Ramses Work Phone: [facility] 250 DO Work Phone: Start: 12-24-2021 End: 12-24-2021 Patient encounter procedure MD Julio Sadler Work Phone: [facility] Start: 12-13-2021 ambulatory Julio Sadler Facility : Start: 11-20-2021 ambulatory Julio Sadler Facility :[facility] Procedures Date Procedure Procedure Detail Performing Clinician Start: 10-06-2023 [facility] CHUY Pearce MD Work Phone: Start: 10-01-2023 Lipid panel JULIO RAWLS Start: 12-24-2021 SARS Antigen (LFIA) MD Julio Sadler Work Phone: Plan of Treatment Date Care Activity Detail Author Start: 05-24-2025 Glaucoma screening Diabetes: R etinopathy Screening [facility] Start: 12-01-2024 Screening for malign ant neoplasm of colon Colorectal Cancer Screening [facility] Comment on above: Postponed from 12/19 (Patient Refused) Start: 10-06-2024 Urine screening for protein Diabetes: Urine Protein Screening [facility] Start: 08-25-2024 Hemoglobin A1c measurement Diabetes: Hemoglobin A1C [facility] Start: 07-13-2024 End: 07-13-2024 Patient encounter procedure 07/13/2024 4:00 PM EST Office Visit [facility] [address] [place] [address] Tanya Arias NP [address] [place] [phone] [facility] Start: 07-07-2024 End: 07-07-2024 Patient encounter procedure 07/07/2024 8:40 AM EST Procedure Visit [facility] Gregory Solis, DO [address] [place] [address] [facility] Start: 07-05-2024 End: 07-05-2024 Patient encounter procedure 07/05/2024 11:10 AM EST Office Visit [facility] [address] [facility] [address] [place] [address] Julio Sadler MD [address] [facility] [address] [place] [address] [facility] Start: 05-01-2024 Influenza vaccination Influenza Vacc ine (#1) [facility] Start: 02-28-2024 Influenza vaccination Influenza Vacc ine (#1) [facility] Comment on above: Postponed from 05/01 (Patient Refused) Start: 01-04-2024 Hemoglobin A1c measurement Diabetes: Hemoglobin A1C [facility] Start: 12-02-2023 End: 12-02-2023 Patient encounter procedure 12/02/2023 3:30 PM EDT Office Visit [facility] [address] [place] [address] Shaikh Pearce MD [address] [place] [address] [facility] Start: 10-01-2023 End: 10-01-2024 Lipid 1996 panel - Serum or Plasma Lipid Panel Lab Routine Hyperlipidemia, unspecified hyperlipidemia type Expected: 10/01/2023 (Approximate), Expires: 10/01/2024 [facility] Service Area Work Phone: Comment on above: Expected: 10/01/2023 (Approximate), Expires: 10/01/2024 Start: 08-04-2023 FUV, Provider: Julio Sadler, Status: Pen, Time: 10:50 AM FUV, Provider: Julio Sadler, Status: Pen, Time: 10:50 AM [facility] [employer] 250 DO Work Phone: Start: 05-01-2023 Influenza vaccination Influenza Vacc ine (#1) [facility] Start: 01-20-2022 FUV, Provider: Julio Sadler, Status: Pen, Time: 3:50 PM FUV, Provider: Julio Sadler, Status: Pen, Time: 3:50 PM [facility] Work Phone: Start: 2008 Zoster Vaccines (1 o f 2) Zoster Vaccines (1 of 2) [facility] Start: 1980 DTaP/Tdap/Td Vaccine s (1 - Tdap) DTaP/Tdap/Td Vaccines (1 - Tdap) [facility] Start: 1977 Urine screening for protein Diabetes: Urine Protein Screening [facility] Start: 1976 [facility]atitis [facility] Start: 1968 Diabetic foot examination Diabetes: Foot Exam [facility] Start: 1968 Glaucoma screening Diabetes: R etinopathy Screening [facility] Start: 1964 Pneumococcal Vaccine : 65+ Years (1 - PCV) Pneumococcal Vaccine: 65+ Years (1 - PCV) [facility] Start: 1964 Pneumococcal Vaccine : 65+ Years (1 of 2 - PCV) Pneumococcal Vaccine: 65+ Years (1 of 2 - PCV) [facility] Start: 1964 Pneumococcal Vaccine : Pediatrics (0 to 5 Years) and At-Risk Patients (6 to 64 Years) (1 - PCV) Pneumococcal Vaccine: Pediatrics (0 to 5 Years) and At-Risk Patients (6 to 64 Years) (1 - PCV) [facility] Start: 12-20-1959 MMR Vaccines (1 of 1 - Standard series) MMR Vaccines (1 of 1 - Standard series) [facility] Start: 06-20-1959 COVID-19 Vaccine (#1) COVID-19 Vacci ne (#1) [facility] Start: 1958 Hemoglobin A1c measurement Diabetes: Hemoglobin A1C [facility] Start: 1958 HIV screening HIV Screening [facility] Start: 1958 Lipid [address] Lipid Panel [facility] Start: 1958 Screening for malign ant neoplasm of colon [facility] Start: 1958 Yearly Adult Physical Yearly Adult P hysical [facility] Payers Date Payer Category Payer Self-pay [id number] 2018 Unknown 1959 Unknown [id number] 1958 Unknown [id number] 2.16. [id number] 1958 Unknown [id number] 2.16. [id number] 1958 Unknown [id number] 2.16. [id number] 1958 Unknown [id number] 2.16.84 0.1.803988.3.579.2.593 1958 Unknown [id number] 2.16.84 0.1.752869.3.579.2.593 1958 Unknown [id number] 2.16.84 0.1.195962.3.579.2.593 1958 Unknown [id number] 2.16.84 0.1.466607.3.579.2.593 1958 Unknown [id number] 2.16.84 0.1.791769.3.579.2.593 1958 Unknown [id number] 2.16.8 40.1.413990.3.579.2.1244 1958 Unknown [id number] 2.16.84 0.1.599143.3.579.2.1259 1958 Unknown [id number] 2.16.84 0.1.451977.3.579.2.1259 1958 Unknown [id number] 2.16.84 0.1.648710.3.579.2.1259 1958 Unknown [id number] 2.16.84 0.1.087634.3.579.2.1259 1958 Unknown [id number] 2.16.840 .1.827443.3.579.2.1259 Unknown [id number] 2.16.8 [id number] Social History Date Type Detail Facility Start: 12-24-2021 End: 12-02-2023 Tobacco smoking status NHIS Ex-smoker (finding) [facility] Start: 1960 Sex Assigned At Male [facility] Start: 10-01-2023 End: 03-02-2024 Former smoker Former smoker -[facility] 250 DO Work Phone: Comment on above: QUIT IN 1999; Start: 09-02-2023 End: 10-01-2023 Tobacco smoking status NHIS Never smoked tobacco [facility] Work Phone: Start: 10-01-2023 End: 12-02-2023 Tobacco use and exposure Smokeless tobacco non-user [facility] Work Phone: Start: 10-01-2023 End: 05-24-2024 Alcohol intake Lifetime non-drinker (finding) [facility] Work Phone: Start: 10-01-2023 End: 03-02-[address] [facility] Work Phone: Start: 1960 [facility] Start: 09-21-2023 End: 10-01-2023 Exposure to SARS-CoV-2 (event) Not sure 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 Never smoked any substance Scribe Attestation By signing my name below, Tammy Coats LPN , Scribe attest that this documentation has been prepared under the direction and in the presence of Julio Sadler MD. documented in this encounter [facility] Work Phone: Instructions 10-01-2023 Patient Instructions Note [...] of your visit. documented in this encounter [facility] Work Phone: Evaluation note Note Date & Type Note Facility Evaluation note [facility] Evaluation note Note Date & Type Note Facility Evaluation note Diagnosis 3-vessel coronary artery disease Cardiomyopathy, unspecified type (CMS/HCC) Hyperlipidemia, unspecified hyperlipidemia type Diabetes mellitus of other type without complication, unspecified whether [facility] insulin use (CMS/HCC) Never smoked any substance documented in this encounter [facility] Work Phone: Evaluation note Note Date & Type Note Facility Evaluation note Diagnosis Type 2 diabetes mellitus without complication, without long-term current use of insulin (CMS/HCC)- Primary documented in this encounter [facility] Evaluation note Note Date & Type Note Facility Evaluation note Diagnosis Hyperlipidemia, unspecified hyperlipidemia type (CMS/HCC) documented in this encounter [facility] Evaluation note Note Date & Type Note Facility Evaluation note Diagnosis Type 2 diabetes mellitus without complication, without long-term current use of insulin (CMS/HCC)- Primary Hyperlipidemia, unspecified hyperlipidemia type (CMS/HCC) Coronary artery disease involving [place] coronary artery of [place] heart without angina pectoris (CMS/HCC) Primary hypertension (CMS/HCC) Unspecified essential hypertension Encounter for screening for malignant neoplasm of colon Type 2 diabetes mellitus without complication, without long-term current use of insulin (CMS/HCC)- Primary Primary hypertension (CMS/HCC)- Primary Unspecified essential hypertension Type 2 diabetes mellitus without complication, without long-term current use of insulin (CMS/HCC) Primary hypertension (CMS/HCC)- Primary Unspecified essential hypertension 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 edema, without long-term current use of insulin (CMS/HCC) Hyperlipidemia, unspecified hyperlipidemia type (CMS/HCC) Coronary artery disease involving [place] coronary artery of [place] heart without angina pectoris (CMS/HCC) Age-related nuclear cataract of both eyes- Primary documented in this encounter [facility] Healthcare Reason for referral (narrative) Consultation (Routine) - Authorized Note Date & Type Note Facility Reason for referral (narrati ve) Specialty Diagnoses / Procedures Referred By Contac t Referred To Contact Cardiology Diagnoses 3-vessel coronary artery disease Procedures Follow Up In Cardiology Julio Sadler MD [address] [facility] [address] [place] [address] Julio Sadler MD [address] [facility] [address] [place] [address] Referral ID Status Reason Start Date Expiration Date V isits Requested Visits Authorized [id number] Authorized 10/01/2023 09/30/[address] [facility] Work Phone: Chief Complaint and Reason for Visit Chief Complaint Abnormal Stress, Car diomyopathy Family History Relationship Condition Age at Onset Recorded Date/T [...] of dementia: Father(V17.2, Z81.8) Status:Active Advance Directives Advance Directive Response Recorded Date/ Time Advance Directives No December 16, 2 022 1:51pm Summary Purpose Chief Complaint * EAGLE SANDOVAL is being seen for a 6 month follow-up of. * Patient is in the office for follow-up for CAD. Last November 2021 he underwent diagnostic cardiac catheterization which revealed occlusion of the mid RCA and left circumflex with mature [id number] and left to left collateral network. Ejection [...] Shaikh Ramses MD Primary Care Provider Active Guard Rail Installer Relationship Specialty Start Date End Date Shaikh Pearce MD PCP - General 12/13/21 Guard Rail Installer Relationship Specialty Start Date End Date Shaikh Pearce MD PCP - General Internal Medicine 07/01/23 Guard Rail Installer Relationship Specialty Start Date End Date Shaikh Pearce MD PCP - General Internal Medicine 07/01/23 Guard Rail Installer Relationship Specialty Start Date End Date Fuentes Wilson MD [address] [place] [phone] PCP - General Family Medicine 05/10/24 Arvin Tucker OD [address] [place] [address] Referring Physician Optometry 11/11/23 Tanya Arias NP [address] [place] [phone] Nurse Practitioner Family Medicine 05/10/24 Guard Rail Installer Relationship Specialty Start Date End Date Fuentes Wilson MD [address] [place] [phone] PCP - General Family Medicine 05/10/24 Arvin Tucker OD [address] [place] [address] Referring Physician Optometry 11/11/23 Tanya Arias NP [address] [place] [id number] Nurse Practitioner Family Medicine 05/10/24 Goals (unrecognized section and content) Goals may be documented in a n alternate section (unrecognized sect ion and content) No Status Records FoundNo Status Records FoundNo Status Records FoundNo Status Records FoundNo Status Records FoundNo Status Records FoundNo Status Records Found INFORMATION SOURCE (unrecogn ized section and content) DATE CREATED AUTHOR 02/05/2022 [facility] DATE CREATED AUTHOR AUTHOR'S ORGANIZ ATION 11/07/2022 [facility] DATE CREATED AUTHOR AUTHOR'S ORGANIZ ATION 11/07/2022 [facility] DATE CREATED AUTHOR AUTHOR'S ORGANIZ ATION 01/08/2023 [facility] DATE CREATED AUTHOR AUTHOR'S ORGANIZ ATION 04/03/2023 [facility] DATE CREATED AUTHOR AUTHOR'S ORGANIZ ATION 10/04/2023 [facility] DATE CREATED AUTHOR AUTHOR'S ORGANIZ ATION 05/26/2024 [facility] EPIC Reason for Visit (unrecogniz ed section and content) Reason Comments Follow-up 9 months Reason Onset Date Comments Med Refill 06/06/2024 Reason Onset Date Comments Med Refill 06/23/2024 FOR RECORDS PERTAINING TO PATIENTS WHO ARE [...] BE BASED ON THE PRIMARY CLINICAL RECORDS. [employer] [facility]. provides no warranty or guarantee of the accuracy or completeness of information in this document.
== END 2024-07-05 14:47 | disposition home or self-care (01) ==
LOC: PST 14:46
PROVIDERS: PCP Internal Medicine; Visit Provider Ophthalmology
DX: Z01.818 Encounter for other preprocedural examination (principal); H25.12 Age-related nuclear cataract, left eye

== ENCOUNTER 2024-07-07 06:47 | Day surgery (SDC) | payer BC, SELFPAY ==
--- NOTE | 2024-07-07 | OP_ITS ---
OPERATION DATE: 07/07/2024 SURGEON: Rashad Solis D.O. PREOPERATIVE DIAGNOSIS: Nuclear sclerotic cataract left eye POSTOPERATIVE DIAGNOSIS: Nuclear sclerotic cataract left eye. PROCEDURE NAME: Cataract extraction with intraocular lens placement of the left eye. ANESTHESIA: Topical ESTIMATED BLOOD LOSS: Zero. COMPLICATIONS: None. PROCEDURE: The patient was brought to the Operating Room in supine position. After proper identification, the left eye was prepped and draped in a sterile ophthalmic fashion. A paracentesis was created at the 5 o'clock position. Approximately 1 cc of unpreserved Xylocaine was injected into the anterior chamber followed by Amvisc Plus. Using a 2.6 mm Keratome blade, a clear corneal incision was created at the 2 o'clock limbus. A cystotome was then used to begin a curvilinear capsulorrhexis that was continued for 360 degrees with the Utrata forceps. BSS on a 26 gauge cannula was injected beneath the anterior capsule to hydrodissect as well as hydrodelineate the lens. After ensuring mobility, phacoemulsification was performed in a [id number]-type fashion. After all nuclear material had been removed from the eye, IA was introduced and all residual cortical material was cleaned up. Additional Amvisc Plus was injected into the posterior bag and a lens model MX60, 18.0 diopters was injected and dialed into position. After ensuring centration, IA was re- introduced into the anterior chamber and all residual Amvisc Plus was removed from the eye. BSS on a 30 gauge cannula was injected into the stroma of both the clear corneal incision as well as paracentesis to hydrate the wounds. Additional BSS was injected into the anterior chamber to pressurize the eye at approximately 20 to 22 mmHg by finger tension. 0.1 cc of antibiotic was injected into the anterior chamber, and Weck-Ilndsey sponges were used to check the wounds to be watertight. One drop of apraclonidine and one drop of prednisolone acetate were placed into the eye and a shield was placed over top. The patient was sent to the postoperative area in satisfactory condition to follow up the following day for postoperative care. YENNI
--- NOTE | 2024-07-07 06:47 | HP_ITS ---
PREOPERATIVE HISTORY AND PHYSICAL ? Date:? 07/06/2024 ? HISTORY:? The patient is a 63-year-old male with complaints of declining vision out of his left eye.? The onset of this has been rather rapid over the last 8-12 months.? He states having difficulty reading and seeing the television.? He also states having difficulty driving in the evening at dusk because of headlights creating glare and halos.? ? PAST OCULAR HISTORY / PAST MEDICAL HISTORY / SOCIAL HISTORY / MEDICATIONS / ALLERGIES TO MEDICATIONS / REVIEW OF SYSTEMS / PHYSICAL EXAM:? Unchanged from previously dictated. ? ASSESSMENT / PLAN:? Visually significant cataract left eye.? After risks, benefits, alternatives, as well as expectations were delivered to the patient, he elected to go forward with cataract removal.? He understands the risks include but not limited to infection, bleeding, loss of vision, loss of the eye itself.? Secondly, he understands that postoperatively he is likely to require spectacle correction for his best visual acuity.? Finally, a complete ophthalmic exam was performed.? There is not determined to be any other source of visual decline other than that of the cataract.? ? After understanding all the risks as well as expectations, he elected to go forward with procedure as listed above and will be doing so in the near future. YENNI
--- OUTSIDE RECORDS SUMMARY | 2024-07-07 06:51 | XMS_ITS | CCD ---
Author Organization [facility] Care Team Providers Care Inward Toll Operator Name Role Phone MD Julio Sadler Attending Provider MD Angelo Pearce Primary Care Provider Shaikh [...] Unavailable [place] , Stephens Primary Care Provider [phone] JULIO SADLER Attending Unavailable SHAIKH PEARCE Primary Care Unavailable Shaikh Pearce MD Primary Care Provider SHAIKH PEARCE Attending Unavailable GREGORY SLOIS Attending Unavailable ARVIN TUCKER Referring Unavailable SHAIKH PEARCE Attending Unavailable SHAIKH PEARCE Attending Unavailable GREGORY SOLIS Attending Unavailable Arvin Tucker OD Unavailable Fuentes Wilson MD Primary Care Provider Juana SAP BUSINESS INTELLIGENCE CONSULTANT, Tanya Unavailable Allergies Allergy Classification Reported Allergen(s) Allergy Type Date of Onset Reaction(s) Facility (2 sources) glipiZIDE; Translations: [GLIPIZIDE] Drug Allergy 10-01-2023 [facility] (2 sources) glipiZIDE Drug Allergy 10-01-2023 [facility] [...] in the morning. Active Continuous Blood Gluc Operations Forester (FreeStyle Toni 2 [place]) device (2 sources) Start: 12-02-2023 End: 12-01-2024 Continuous Blood Gluc Operations Forester (FreeStyle Toni 2 [place]) device Indications: Type 2 diabetes mellitus without [...] [Coronary atherosclerosis of unspecified type of vessel, [place] or graft] Onset: 11-21-2022 Chronic Comment on [...] RANDOM 145.39 mg/dL 20.00 - 300.00 mg/dL [facility] Interpretation and review of laboratory results Abnormal [facility] MICROALBUM CREATININE RATIO UR 38.5 mg/g High 0.0 - 29.9 mg/g [facility] Comment on above: NO MICROALBUMINURIA 0-29 MG/G CLINICAL MICROALBUMINURIA 30-300 MG/G MACROALBUMINURIA >300 MG/G MICROALBUMIN URINE RANDOM 5.6 mg/dL NINF - 30.0 mg/dL [facility] SGOTon 01-01-2023 AST [Catalytic activity/Vol] 23 U/L Normal 15-37 [facility] Comment on above: Performed By: #### A LT, AST #### [facility] [address] [place] [address] Dr. Jeremías Gaffney [facility] 01-01-2023 ALT [Catalytic activity/Vol] 46 U/L Normal 16-63 [facility] Comment on above: Performed By: #### A LT, AST #### [facility] [address] [place] [address] Dr. Jeremías Gaffney CBC AUTO DIFFon 11-19-2022 BASO # 0.0 103/ul Normal 0.0-0.1 [facility] Comment on above: Performed By: #### C BC #### [facility] [address] [place] [address] Dr. Jeremías Gaffney Basophils/100 WBC (Bld) 0.5 % Normal 0.2-2.0 [facility] Comment on above: Performed By: #### C BC #### [facility] [address] [place] [address] Dr. Jeremías Gaffney EO # 0.3 103/ul Normal 0.0-0.7 [facility] Comment on above: Performed By: #### C BC #### [facility] [address] [place] [address] Dr. Jeremías Gaffney Eosinophils/100 WBC (Bld) 3.2 % Normal 0.9-7.0 [facility] Comment on above: Performed By: #### C BC #### [facility] [address] [place] [address] Dr. Jeremías Gaffney Erythrocyte distribution width (RBC) [Ratio] 12.6 % Normal 11.0-15.0 [facility] Comment on above: Performed By: #### C BC #### [facility] [address] [place] [address] Dr. Jeremías Gaffney Hematocrit (Bld) [Volume fraction] 44.5 % Normal 42.0-54.0 [facility] Comment on above: Performed By: #### C BC #### [facility] [address] [place] [address] Dr. Jeremías Gaffney Hemoglobin (Bld) [Mass/Vol] 14.4 g/dL Normal 14.0-18.0 [facility] Comment on above: Performed By: #### C BC #### [facility] [address] [place] [address] Dr. Jeremías Gaffney IG # 0.02 10e3/ul Normal 0.00-0.03 [facility] Comment on above: Performed By: #### C BC #### [facility] [address] [place] [address] Dr. Jeremías Gaffney IG % 0.2 % Normal 0.0-0.5 [facility] Comment on above: Performed By: #### C BC #### [facility] [address] [place] [address] Dr. Jeremías Gaffney LYMPH # 1.7 103/ul Normal 1.2-3.8 [facility] Comment on above: Performed By: #### C BC #### [facility] [address] [place] [address] Dr. Jeremías Gaffney Lymphocytes/100 WBC (Bld) 19.7 % Critically low 20.5-60.0 [facility] Comment on above: Performed By: #### C BC #### [facility] [address] [place] [address] Dr. Jeremías Gaffney MANUAL DIFF REQ NO Normal [facility] Comment on above: Performed By: #### C BC #### [facility] [address] [place] [address] Dr. Jeremías Gaffney MCH (RBC) [Entitic mass] 27.7 pg Normal 25.9-34.0 [facility] Comment on above: Performed By: #### C BC #### [facility] [address] [address] [address] Jeremías Gaffney MCHC (RBC) [Mass/Vol] 32.4 g/dL Normal 29.9-35.2 [facility] Comment on above: Performed By: #### C BC #### [facility] [address] [address] [address] Jeremías Gaffney MCV (RBC) [Entitic vol] 85.7 fL Normal 80.0-94.0 [facility] Comment on above: Performed By: #### C BC #### [facility] [address] [address] [address] Jeremías Gaffney MONO # 0.5 103/ul Normal 0.3-0.8 [facility] Comment on above: Performed By: #### C BC #### [facility] [address] [address] [address] Jeremías Gaffney Monocytes/100 WBC (Bld) 5.6 % Normal 1.7-12.0 [facility] Comment on above: Performed By: #### C BC #### [facility] [address] [address] [address] Jeremías Gaffney NEUT # 6.1 103/ul Normal 1.4-6.5 [facility] Comment on above: Performed By: #### C BC #### [facility] [address] [address] [address] Jeremías Gaffney Neutrophils/100 WBC (Bld) 70.8 % Normal 43.0-75.0 [facility] Comment on above: Performed By: #### C BC #### [facility] [address] [address] [address] Jeremías Gaffney Platelet mean volume (Bld) [Entitic vol] 12.3 fL Normal 9.5-13.5 [facility] Comment on above: Performed By: #### C BC #### [facility] [address] [address] [address] Jeremías Gaffney PLT 135 103/ul Critically low 150-450 [facility] Comment on above: Performed By: #### C BC #### [facility] [address] [place] [address] Dr. Jeremías Gaffney RBC 5.19 106/ul Normal 4.70-6.10 [facility] Comment on above: Performed By: #### C BC #### [facility] [address] [place] [address] Dr. Jeremías Gaffney WBC 8.6 103/ul Normal 4.0-11.0 [facility] Comment on above: Performed By: #### C BC #### [facility] [address] [place] [address] Dr. Jeremías Gaffney GLYCOHEMOGLOBIN A1Con 2022 ADA RECOMMENDATION SEE BELOW Normal [facility] Comment on above: Result Comment: ADA RECOMMENDED LIMIT 4.0 - 6.0 ADA THERAPEUTIC TARGET < 7.0 ACTION SUGGESTED > 7.0 Performed By: #### A LT, AST #### [facility] [address] [place] [address] Dr. Jeremías Gaffney Glucose [Mass/Vol] 137 mg/dL Normal [facility] Comment on above: Performed By: #### A LT, AST #### [facility] [address] [place] [address] Dr. Jeremías Gaffney HbA1c (Bld) [Mass fraction] 6.4 % Critically high 4.5-6.2 [facility] Comment on above: Performed By: #### A LT, AST #### [facility] [address] [place] [address] Dr. Jeremías Gaffney LIPID PROFILEon 11-19-2022 CHOL-HDL RATIO NORM SEE BELOW Normal [facility] Comment on above: Result Comment: 3.3 - 4.4 LOW RISK 4.4 - 7.1 AVERAGE RISK 7.1 - 11.0 MODERATE RISK >11.0 HIGH RISK Performed By: #### A LT, AST #### [facility] [address] [place] [address] Dr. Jeremías Gaffney Cholesterol [Mass/Vol] 140 mg/dL Normal <=200 [facility] Comment on above: Performed By: #### A LT, AST #### [facility] [address] [address] [address] Jeremías Gaffney Cholesterol in HDL [Mass/Vol] 53 mg/dL Normal 40-60 [facility] Comment on above: Performed By: #### A LT, AST #### [facility] [address] [address] [address] Jeremías Gaffney Cholesterol in LDL [Mass/Vol] 60.0 mg/dL Normal [facility] Comment on above: Performed By: #### A LT, AST #### [facility] [address] [place] [address] Dr. Jeremías Gaffney Cholesterol.total/Ch olesterol in HDL [Mass ratio] 2.6 {ratio} Normal [facility] Comment on above: Performed By: #### A LT, AST #### [facility] [address] [address] [address] Jeremías Gaffney HDL NORMAL > or = 60 mg/dl - LO W CARDIOVASCULAR RISK <40 mg/dl - HIGH CARDIOVASCULAR RISK Normal [facility] Comment on above: Performed By: #### A LT, AST #### [facility] [address] [address] [address] Jeremías Gaffney LDL CALC NORMAL SEE BELOW Normal [facility] Comment on above: Result Comment: <100 mg/dl OPTIMAL 100 - 129 mg/dl NEAR OR ABOVE OPTIMAL 130 - 159 mg/dl BORDERLINE HIGH 160 - 189 mg/dl HIGH >190 mg/dl VERY HIGH Performed By: #### A LT, AST #### [facility] [address] [address] [address] Jeremías Gaffney Triglyceride [Mass/Vol] 135 mg/dL Normal <=150 [facility] Comment on above: Performed By: #### A LT, AST #### [facility] [address] [place] [address] Dr. Jeremías Gaffney VLDL CALC 27.0 mg/dL Normal [facility] Comment on above: Performed By: #### A LT, AST #### [facility] [address] [address] [address] Jeremías Gaffney PROF CHEM 8 (BAS METB)on Anion gap [Moles/Vol] 12.0 mmol/L Normal [facility] Comment on above: Performed By: #### A LT, AST, BMP, LIPID #### [facility] [address] [address] [address] Jeremías Gaffney Calcium [Mass/Vol] 9.4 mg/dL Normal 8.5-10.1 [facility] Comment on above: Performed By: #### A LT, AST, BMP, LIPID #### [facility] [address] [place] [address] Dr. Jeremías Gaffney Chloride [Moles/Vol] 105 mmol/L Normal 98-107 [facility] Comment on above: Performed By: #### A LT, AST, BMP, LIPID #### [facility] [address] [place] [address] Dr. Jeremías Gaffney CO2 [Moles/Vol] 29.8 mmol/L Normal 21.0-32.0 [facility] Comment on above: Performed By: #### A LT, AST, BMP, LIPID #### [facility] [address] [place] [address] Dr. Jeremías Gaffney Creatinine [Mass/Vol] 0.77 mg/dL Normal 0.70-1.30 [facility] Comment on above: Performed By: #### A LT, AST, BMP, LIPID #### [facility] [address] [place] [address] Dr. Jeremías Gaffney EGFR-AF ISRAELI >60 Normal >=60 [facility] Comment on above: Performed By: #### A LT, AST, BMP, LIPID #### [facility] [address] [place] [address] Dr. Jeremías Gaffney EGFR-NON AF ISRAELI >60 Normal >=60 [facility] Comment on above: Performed By: #### A LT, AST, BMP, LIPID #### [facility] [address] [place] [address] Dr. Jeremías Gaffney Glucose [Mass/Vol] 132 mg/dL Critically high 74-106 [facility] Comment on above: Performed By: #### A LT, AST, BMP, LIPID #### [facility] [address] [address] [address] Jeremías Gaffney Potassium [Moles/Vol] 4.8 mmol/L Normal 3.5-5.1 [facility] Comment on above: Performed By: #### A LT, AST, BMP, LIPID #### [facility] [address] [place] [address] Dr. Jeremías Gaffney Sodium [Moles/Vol] 142 mmol/L Normal 136-145 [facility] Comment on above: Performed By: #### A LT, AST, BMP, LIPID #### [facility] [address] [place] [address] Dr. Jeremías Gaffney Urea nitrogen [Mass/Vol] 20.0 mg/dL Critically high 7.0-18.0 [facility] Comment on above: Performed By: #### A LT, AST, BMP, LIPID #### [facility] [address] [place] [address] Dr. Jeremías Gaffney Urea nitrogen/Creatinine [Mass ratio] 26.0 mg/mg Normal [facility] Comment on above: Performed By: #### A LT, AST, BMP, LIPID #### [facility] [address] [place] [address] Dr. Jeremías Henson 11-19-2022 AST [Catalytic activity/Vol] 49 U/L Critically high 15-37 [facility] Comment on above: Performed By: #### A LT, AST, BMP, LIPID #### [facility] [address] [place] [address] Dr. Jeremías Jasso 11-19-2022 ALT [Catalytic activity/Vol] 81 U/L Critically high 16-63 [facility] Comment on above: Performed By: #### A LT, AST #### [facility] [address] [place] [address] Dr. Jeremías Gaffney Office Visit (Cardiology)on 11-05-2022 [...] mid RCA and left circumflex with mature [id number] and left to left collateral network. Ejection [...] Recorded: 05Nov2022 10:44AM Heart Rate76, L Radial [id number], RUE, Sitting [id number], RUE, Sitting Height5 ft 5 in Sxasle029 lb BMI Zbgbciqjgo92.95 kg/m2 BSA Calculated1.94 To (more content not included)... Normal [facility] Tobacco Screening.on 023 Adult depression screening assessment No [facility] [place] [address] DO Work Phone: Fall risk assessment a) No falls within the last year [facility] [place] [address] DO Work Phone: Tobacco use status [facility]PH[facility] b) No [facility] [place] [address] DO Work Phone: US ARTERY [...] GARRETT MONT[place]UE Date: 2022-06-23 20:08 Normal [facility] CBC AUTO DIFFon 06-18-2022 BASO # 0.1 103/ul Normal 0.0-0.1 [facility] Comment on above: Performed By: #### C BC #### [facility] [address] [place] [address] Dr. Jeremías Gaffney Basophils/100 WBC (Bld) 0.5 % Normal 0.2-2.0 [facility] Comment on above: Performed By: #### C BC #### [facility] [address] [place] [address] Dr. Jeremías Gaffney EO # 0.2 103/ul Normal 0.0-0.7 [facility] Comment on above: Performed By: #### C BC #### [facility] [address] [place] [address] Dr. Jeremías Gaffney Eosinophils/100 WBC (Bld) 1.5 % Normal 0.9-7.0 [facility] Comment on above: Performed By: #### C BC #### [facility] [address] [place] [address] Dr. Jeremías Gaffney Erythrocyte distribution width (RBC) [Ratio] 13.3 % Normal 11.0-15.0 [facility] Comment on above: Performed By: #### C BC #### [facility] [address] [place] [address] Dr. Jeremías Gaffney Hematocrit (Bld) [Volume fraction] 43.2 % Normal 42.0-54.0 [facility] Comment on above: Performed By: #### C BC #### [facility] [address] [place] [address] Dr. Jeremías Gaffney Hemoglobin (Bld) [Mass/Vol] 14.4 g/dL Normal 14.0-18.0 [facility] Comment on above: Performed By: #### C BC #### [facility] [address] [place] [address] Dr. Jeremías Gaffney IG # 0.04 10e3/ul Critically high 0.00-0.03 [facility] Comment on above: Performed By: #### C BC #### [facility] [address] [place] [address] Dr. Jeremías Gaffney IG % 0.4 % Normal 0.0-0.5 [facility] Comment on above: Performed By: #### C BC #### [facility] [address] [place] [address] Dr. Jeremías Gaffney LYMPH # 1.6 103/ul Normal 1.2-3.8 [facility] Comment on above: Performed By: #### C BC #### [facility] [address] [place] [address] Dr. Jeremías Gaffney Lymphocytes/100 WBC (Bld) 15.0 % Critically low 20.5-60.0 [facility] Comment on above: Performed By: #### C BC #### [facility] [address] [place] [address] Dr. Jeremías Gaffney MANUAL DIFF REQ NO Normal [facility] Comment on above: Performed By: #### C BC #### [facility] [address] [place] [address] Dr. Jeremías Gaffney MCH (RBC) [Entitic mass] 28.7 pg Normal 25.9-34.0 [facility] Comment on above: Performed By: #### C BC #### [facility] [address] [place] [address] Dr. Jeremías Gaffney MCHC (RBC) [Mass/Vol] 33.3 g/dL Normal 29.9-35.2 [facility] Comment on above: Performed By: #### C BC #### [facility] [address] [place] [address] Dr. Jeremías Gaffney MCV (RBC) [Entitic vol] 86.1 fL Normal 80.0-94.0 [facility] Comment on above: Performed By: #### C BC #### [facility] [address] [place] [address] Dr. Jeremías Gaffney MONO # 0.5 103/ul Normal 0.3-0.8 [facility] Comment on above: Performed By: #### C BC #### [facility] [address] [place] [address] Dr. Jeremías Gaffney Monocytes/100 WBC (Bld) 4.4 % Normal 1.7-12.0 [facility] Comment on above: Performed By: #### C BC #### [facility] [address] [place] [address] Dr. Jeremías Gaffney NEUT # 8.1 103/ul Critically high 1.4-6.5 [facility] Comment on above: Performed By: #### C BC #### [facility] [address] [address] [address] Jeremías Gaffney Neutrophils/100 WBC (Bld) 78.2 % Critically high 43.0-75.0 [facility] Comment on above: Performed By: #### C BC #### [facility] [address] [address] [address] Jeremías Gaffney Platelet mean volume (Bld) [Entitic vol] 11.9 fL Normal 9.5-13.5 [facility] Comment on above: Performed By: #### C BC #### [facility] [address] [place] [address] Dr. Jeremías Gaffney PLT 161 103/ul Normal 150-450 [facility] Comment on above: Performed By: #### C BC #### [facility] [address] [address] [address] Jeremías Gaffney RBC 5.02 106/ul Normal 4.70-6.10 [facility] Comment on above: Performed By: #### C BC #### [facility] [address] [address] [address] Jeremías Gaffney WBC 10.4 103/ul Normal 4.0-11.0 [facility] Comment on above: Performed By: #### C BC #### [facility] [address] [place] [address] Dr. Jeremías Gaffney GLYCOHEMOGLOBIN A1Con 2021 ADA RECOMMENDATION SEE BELOW Normal [facility] Comment on above: Result Comment: ADA RECOMMENDED LIMIT 4.0 - 6.0 ADA THERAPEUTIC TARGET < 7.0 ACTION SUGGESTED > 7.0 Performed By: #### A 1C #### [facility] [address] [place] [address] Dr. Jeremías Gaffney Glucose [Mass/Vol] 134 mg/dL Normal [facility] Comment on above: Performed By: #### A 1C #### [facility] [address] [address] [address] Jeremías Gaffney HbA1c (Bld) [Mass fraction] 6.3 % Critically high 4.5-6.2 [facility] Comment on above: Performed By: #### A 1C #### [facility] [address] [address] [address] Jeremías Gaffney LIPID PROFILEon 06-18-2022 CHOL-HDL RATIO NORM SEE BELOW Normal [facility] Comment on above: Result Comment: 3.3 - 4.4 LOW RISK 4.4 - 7.1 AVERAGE RISK 7.1 - 11.0 MODERATE RISK >11.0 HIGH RISK Performed By: #### C MP, LIPID #### [facility] [address] [place], [place] [address] Dr. Jeremías Gaffney Cholesterol [Mass/Vol] 110 mg/dL Normal <=200 [facility] Comment on above: Performed By: #### C MP, LIPID #### [facility] [address] [address] [address] Jeremías Gaffney Cholesterol in HDL [Mass/Vol] 52 mg/dL Normal 40-60 [facility] Comment on above: Performed By: #### C MP, LIPID #### [facility] [address] [address] [address] Jeremías Gaffney Cholesterol in LDL [Mass/Vol] 29.2 mg/dL Normal [facility] Comment on above: Performed By: #### C MP, LIPID #### [facility] [address] [place], [place] [address] Dr. Jeremías Gaffney Cholesterol.total/Ch olesterol in HDL [Mass ratio] 2.1 {ratio} Normal [facility] Comment on above: Performed By: #### C MP, LIPID #### [facility] [address] [place], [place] [address] Dr. Jeremías Gaffney HDL NORMAL > or = 60 mg/dl - LO W CARDIOVASCULAR RISK <40 mg/dl - HIGH CARDIOVASCULAR RISK Normal [facility] Comment on above: Performed By: #### C MP, LIPID #### [facility] [address] [place], [place] [address] Dr. Jeremías Gaffney LDL CALC NORMAL SEE BELOW Normal [facility] Comment on above: Result Comment: <100 mg/dl OPTIMAL 100 - 129 mg/dl NEAR OR ABOVE OPTIMAL 130 - 159 mg/dl BORDERLINE HIGH 160 - 189 mg/dl HIGH >190 mg/dl VERY HIGH Performed By: #### C MP, LIPID #### [facility] [address] [place] [address] Dr. Jeremías Gaffney Triglyceride [Mass/Vol] 144 mg/dL Normal <=150 [facility] Comment on above: Performed By: #### C MP, LIPID #### [facility] [address] [place] [address] Dr. Jeremías Gaffney VLDL CALC 28.8 mg/dL Normal [facility] Comment on above: Performed By: #### C MP, LIPID #### [facility] [address] [place] [address] Dr. Jeremías Gaffney PROF 14(COMP METB)on 022 Albumin [Mass/Vol] 3.8 g/dL Normal 3.4-5.0 [facility] Comment on above: Performed By: #### C MP, LIPID #### [facility] [address] [place] [address] Dr. Jeremías Gaffney Albumin/Globulin [Mass ratio] 1.0 {ratio} Normal [facility] Comment on above: Performed By: #### C MP, LIPID #### [facility] [address] [place] [address] Dr. Jeremías Gaffney ALP [Catalytic activity/Vol] 70 U/L Normal 46-116 [facility] Comment on above: Performed By: #### C MP, LIPID #### [facility] [address] [place] [address] Dr. Jeremías Gaffney ALT [Catalytic activity/Vol] 40 U/L Normal 16-63 [facility] Comment on above: Performed By: #### C MP, LIPID #### [facility] [address] [place] [address] Dr. Jeremías Gaffney Anion gap [Moles/Vol] 11.9 mmol/L Normal [facility] Comment on above: Performed By: #### C MP, LIPID #### [facility] [address] [place] [address] Dr. Jeremías Gaffney AST [Catalytic activity/Vol] 18 U/L Normal 15-37 [facility] Comment on above: Performed By: #### C MP, LIPID #### [facility] [address] [place] [address] Dr. Jeremías Gaffney Bilirubin [Mass/Vol] 0.7 mg/dL Normal 0.2-1.0 [facility] Comment on above: Performed By: #### C MP, LIPID #### [facility] [address] [place] [address] Dr. Jeremías Gaffney Calcium [Mass/Vol] 9.0 mg/dL Normal 8.5-10.1 [facility] Comment on above: Performed By: #### C MP, LIPID #### [facility] [address] [place] [address] Dr. Jeremías Gaffney Chloride [Moles/Vol] 103 mmol/L Normal 98-107 [facility] Comment on above: Performed By: #### C MP, LIPID #### [facility] [address] [place] [address] Dr. Jeremías Gaffney CO2 [Moles/Vol] 28.4 mmol/L Normal 21.0-32.0 [facility] Comment on above: Performed By: #### C MP, LIPID #### [facility] [address] [place] [address] Dr. Jeremías Gaffney Creatinine [Mass/Vol] 0.72 mg/dL Normal 0.70-1.30 [facility] Comment on above: Performed By: #### C MP, LIPID #### [facility] [address] [place] [address] Dr. Jeremías Gaffney EGFR-AF ISRAELI >60 Normal >=60 [facility] Comment on above: Performed By: #### C MP, LIPID #### [facility] [address] [place] [address] Dr. Jeremías Gaffney EGFR-NON AF ISRAELI >60 Normal >=60 [facility] Comment on above: Performed By: #### C MP, LIPID #### [facility] [address] [place] [address] Dr. Jeremías Gaffney Globulin (S) [Mass/Vol] 3.8 g/dL Normal [facility] Comment on above: Performed By: #### C MP, LIPID #### [facility] [address] [address] [address] Jeremías Gaffney Glucose [Mass/Vol] 106 mg/dL Normal 74-106 [facility] Comment on above: Performed By: #### C MP, LIPID #### [facility] [address] [address] [address] Jeremías Gaffney Potassium [Moles/Vol] 4.3 mmol/L Normal 3.5-5.1 [facility] Comment on above: Performed By: #### C MP, LIPID #### [facility] [address] [address] [address] Jeremías Gaffney Protein [Mass/Vol] 7.6 g/dL Normal 6.4-8.2 [facility] Comment on above: Performed By: #### C MP, LIPID #### [facility] [address] [place] [address] Dr. Jeremías Gaffney Sodium [Moles/Vol] 139 mmol/L Normal 136-145 [facility] Comment on above: Performed By: #### C MP, LIPID #### [facility] [address] [place] [address] Dr. Jeremías Gaffney Urea nitrogen [Mass/Vol] 19.0 mg/dL Critically high 7.0-18.0 [facility] Comment on above: Performed By: #### C MP, LIPID #### [facility] [address] [place] [address] Dr. Jeremías Gaffney Urea nitrogen/Creatinine [Mass ratio] 26.4 mg/mg Normal [facility] Comment on above: Performed By: #### C MP, LIPID #### [facility] [address] [place] [address] Dr. Jeremías Gaffney MRI Cardiac w/wo contrast fo r Morph/Funct and Valve Dzon 01-30-2022 MRI Cardiac w/wo contrast for Morph/Funct and Valve Dz Normal -[facility] [address] DO Work Phone: TH MRI CARDIAC RESONANCE YARA GING FOR VELOCITY FLOW MAPPINGon 01-30-2022 MRI CARDIAC RESONANCE IMAGING FOR VELOCITY FLOW MAPPING [facility] CMR Report Name: EAGLE SANDOVAL : 1960 Scan Date: 2022-01-30 11:10:00 Electronically signed by SHARAN THOMAS 10:03:32 GENERAL INFORMATION HEIGHT: 66.00 in (167.64 cm) WEIGHT: 187.00 lbs (84.82 kgs) BSA: 1.94 m^2 BP: 110 / 72 mmHg BASELINE HR: 73 BPM SCAN LOCATION: [facility] REFERRING PHYSICIAN: JULIO SADLER ATTENDING PHYSICIAN: JULIO SADLER TECHNOLOGIST: RAZA SORIA ACCESSION NUMBER: [id number] CPT CODES: 72395 ICD10 CODES: I42.9, [ , ]I25.10 SUMMARY [...] . Hyperenhancement (more content not included)... Normal [facility] MRI CARDIAC W/WO CONTRAST FOR MORPH/FUNCT AND VALVE DZon 01-30-2022 MRI CARDIAC W/WO CONTRAST FOR MORPH/FUNCT AND VALVE [facility] CMR Report Name: EAGLE SANODVAL : 1960 Scan Date: 2022-01-30 11:10:00 Electronically signed by SHARAN THOMAS 10:03:32 GENERAL INFORMATION HEIGHT: 66.00 in (167.64 cm) WEIGHT: 187.00 lbs (84.82 kgs) BSA: 1.94 m^2 BP: 110 / 72 mmHg BASELINE HR: 73 BPM SCAN LOCATION: [facility] REFERRING PHYSICIAN: JULIO SADLER ATTENDING PHYSICIAN: JULIO SADLER TECHNOLOGIST: RAZA SORIA ACCESSION NUMBER: [id number] CPT CODES: 86041 ICD10 CODES: I42.9, [ , ]I25.10 SUMMARY [...] . Hyperenhancement (more content not included)... Normal [facility] No Panel Informationon 12-26 96\S\96 Normal [facility] [address] DO Work Phone: Comment on above: Random Glucose Refer ence Range is dependent on time and content of last meal. Glucose of more than 200 mg/dL in a nonstressed, ambulatory subject supports the diagnosis of Diabetes Mellitus.PERFORMED BY:[address] [place], [place] [phone] MEDICAL DIRECTORSHILOH SPRINGER M.D. Activated partial thrombopla stin time (aPTT) in platelet poor plasma by coagulation aOrdered By: Julio Sadler on 12-24-2021 aPTT Coag (PPP) [Time] 35.2 s 25.1-36.5 [facility] Basophils Auto (Bld) [#/Vol] Ordered By: Julio Sadler on 12-24-2021 Basophils (Bld) [#/Vol] 0.0 10*3/uL 0.0-0.2 [facility] Basophils/100 WBC Auto (Bld) Ordered By: Julio Sadler on 12-24-2021 Basophils/100 WBC (Bld) 0.3 % [facility] Blood hemoglobin measurement (mass/volume)Ordered By: Julio Sadler on 12-24-2021 Hemoglobin (Bld) [Mass/Vol] 12.8 g/dL 13.0-17.0 [facility] Blood leukocytes automated c ount (number/volume)Ordered By: Julio Sadler on 12-24-2021 WBC (Bld) [#/Vol] 12.6 10*3/uL 4.5-11.0 [facility] COVID-19 SOFIAOrdered By: Mary armin Doroteo on 12-24-2021 SARS-CoV+SARS-CoV-2 (COVID-19) Ag IA.rapid Ql (Resp) Negative Negative [facility] Comment on above: This is a duplicate Diana SARS Antigen (THEODORE) result to be used for statistical tracking purpose only. Cholesterol [Mass/volume] in Serum or PlasmaOrdered By: Julio Sadler on 12-24-2021 Cholesterol [Mass/Vol] 105 mg/dL 140-200 [facility] Comment on above: Chol less than 200 m g/dl low riskChol 201-239 mg/dl borderline riskChol 240 mg/dl and greater high risk Cholesterol in LDL Calc [Mas s/Vol]Ordered By: Julio Sadler on 12-24-2021 Cholesterol in LDL [Mass/Vol] 39 mg/dL 0-100 [facility] Comment on above: LDL ATP III CLASSIFI CATIONLDL less than 100 mg/dL OptimalLDL 100-129 mg/dL Near or above optimalLDL 130-159 mg/dL Borderline highLDL 160-189 mg/dL HighLDL greater than 189 mg/dL Very high Cholesterol in VLDL Calc [Ma ss/Vol]Ordered By: Julio Sadler on 12-24-2021 Cholesterol in VLDL [Mass/Vol] 25 mg/dL [facility] Creatinine and Glomerular fi ltration rate.predicted panel (S/P/Bld)Ordered By: Julio Sadler on 12-24-2021 Creatinine [Mass/Vol] 0.88 mg/dL 0.64-1.27 [facility] Eosinophils Auto (Bld) [#/Vo l]Ordered By: Julio Sadler on 12-24-2021 Eosinophils (Bld) [#/Vol] 0.2 10*3/uL 0.0-0.45 [facility] Eosinophils/100 WBC Auto (Bl d)Ordered By: Julio Sadler on 12-24-2021 Eosinophils/100 WBC (Bld) 1.7 % [facility] Erythrocyte distribution wid th Auto (RBC) [Ratio]Ordered By: Julio Sadler on 12-24-2021 Erythrocyte distribution width (RBC) [Ratio] 13.2 % 12.0-14.8 [facility] Estimated glomerular filtrat ion rate (GFR) non- AmericanOrdered By: Julio Sadler on 12-24-2021 GFR/1.73 sq M.predicted among non-blacks MDRD (S/P/Bld) [Vol rate/Area] > 60 mL/Min [facility] Hematocrit Auto (Bld) [Volum e fraction]Ordered By: Julio Sadler on 12-24-2021 Hematocrit (Bld) [Volume fraction] 37.6 % 38.8-50.0 [facility] Laboratory - Chemistry and C hemistry - challengeon 12-24-2021 Cholesterol [Mass/Vol] 105\S\105 below low threshold 140-200 [email or web address] DO Work Phone: Comment on above: Chol less than 200 m g/dl low risk Chol 201-239 mg/dl borderline risk Chol 240 mg/dl and greater high risk Cholesterol in LDL [Mass/Vol] 39\S\39 Normal 0-100 [place] [address] DO Work Phone: Comment on above: LDL ATP III CLASSIFI CATION LDL less than 100 mg/dL Optimal LDL 100-129 mg/dL Near or above optimal LDL 130-159 mg/dL Borderline high LDL 160-189 mg/dL High LDL greater than 189 mg/dL Very high Laboratory - CoagulationOrde red By: Julio Sadler on 12-24-2021 PT Coag (PPP) [Time] 13.2 s 9.0-12.9 [facility] - Hematology and Cell countsOrdered By: Julio Sadler on 12-24-2021 Nucleated RBC/100 WBC (Bld) [Ratio] 0.0 % 0-0.5 [facility] - Microbiology an d Antimicrobial susceptibilityon 12-24-2021 SARS-CoV-2 (COVID-19) RNA JOSE+probe Ql (Unsp spec) [facility] [facility] [address] DO Work Phone: Lymphocytes Auto (Bld) [#/Vo l]Ordered By: Julio Sadler on 12-24-2021 Lymphocytes (Bld) [#/Vol] 1.7 10*3/uL 1.00-4.8 [facility] Lymphocytes/100 WBC Auto (Bl d)Ordered By: Julio Sadler on 12-24-2021 Lymphocytes/100 WBC (Bld) 13.6 % [facility] MCH Auto (RBC) [Entitic mass ]Ordered By: Julio Sadler on 12-24-2021 MCH (RBC) [Entitic mass] 28.5 pg 27.5-35.2 [facility] MCHC Auto (RBC) [Mass/Vol]Or dered By: Julio Sadler on 12-24-2021 MCHC (RBC) [Mass/Vol] 33.9 g/dL 32.5-35.6 [facility] MCV Auto (RBC) [Entitic vol] Ordered By: Julio Sadler on 12-24-2021 MCV (RBC) [Entitic vol] 84.1 fL 83.5-101 [facility] Monocytes Auto (Bld) [#/Vol] Ordered By: Julio Sadler on 12-24-2021 Monocytes (Bld) [#/Vol] 0.8 10*3/uL 0.0-0.8 [facility] Monocytes/100 WBC Auto (Bld) Ordered By: Julio Sadler on 12-24-2021 Monocytes/100 WBC (Bld) 6.7 % [facility] Neutrophils Auto (Bld) [#/Vo l]Ordered By: Julio Sadler on 12-24-2021 Neutrophils (Bld) [#/Vol] 9.8 10*3/uL 1.8-7.7 [facility] Neutrophils/100 WBC Auto (Bl d)Ordered By: Julio Sadler on 12-24-2021 Neutrophils/100 WBC (Bld) 77.7 % [facility] No Panel InformationOrdered By: Julio Sadler on 12-24-2021 Estimated GFR () > 60 mL/Min [facility] Comment on above: GFR estimated refere nce range: According to KDOQI guidelines, <60 ml/min/1.73m2 is sufficient to diagnose a patient with chronic kidney disease. Pharmacy Creatinine Clearance (Chem N/A [facility] SARS Antigen (LFIA) [facility] No Panel Informationon 12-24 35.2\S\35.2 Normal 25.1-36.5 [facility] [address] DO Work Phone: Comment on above: PERFORMED BY:[facility] [place], [place] [phone] MEDICAL DIRECTORSHILOH SPRINGER M.D. 1.2\S\1.2 Normal [facility] [address] DO Work Phone: [...] valves: 3 - 4.5 13.2\S\13.2 Normal 12.0-14.8 [facility] [address] DO Work Phone: [phone] Negative Normal Negative [facility] [address] DO Work Phone: Comment on above: This is a duplicate Diana SARS Antigen (THEODORE) result to be used for statistical tracking purpose only.PERFORMED BY:[facility] [place] [id number] MEDICAL DIRECTORSHILOH SPRINGER M.D. 77.7\S\77.7 Normal . [facility] [address] DO Work Phone: 10.4\S\10.4 above high threshold 6.6-10.1 [facility] [address] DO Work Phone: [phone] 133\S\133 below low threshold 150-450 [facility] [address] DO Work Phone: 33.9\S\33.9 Normal 32.5-35.6 -[facility] [address] DO Work Phone: 28.5\S\28.5 Normal 27.5-35.2 [facility] [address] DO Work Phone: 9.8\S\9.8 above high threshold 1.8-7.7 [facility] [address] DO Work Phone: 0.0\S\0.0 Normal 0.0-0.2 [facility] [address] DO Work Phone: Comment on above: PERFORMED BY:[address] [address] [place], [place] [phone] MEDICAL DIRECTORSHILOH SPRINGER M.D. 0.3\S\0.3 Normal . [facility] [address] DO Work Phone: 1.7\S\1.7 Normal 1.00-4.8 [facility] [address] DO Work Phone: 6.7\S\6.7 Normal . [facility] [address] DO Work Phone: 13.6\S\13.6 Normal . [facility] [address] DO Work Phone: 0.2\S\0.2 Normal 0.0-0.45 [facility] [address] DO Work Phone: 0.8\S\0.8 Normal 0.0-0.8 [facility] [address] DO Work Phone: 84.1\S\84.1 Normal 83.5-101 [facility] [address] DO Work Phone: 37.6\S\37.6 below low threshold 38.8-50.0 [facility] [address] DO Work Phone: 12.8\S\12.8 below low threshold 13.0-17.0 [facility] [address] DO Work Phone: 4.48\S\4.48 Normal 3.90-5.60 [facility] [address] DO Work Phone: [phone] 12.6\S\12.6 above high threshold 4.1-10.5 [facility] [address] DO Work Phone: 25.9\S\25.9 Normal 22.0-30.0 [facility] [address] DO Work Phone: 101\S\101 Normal 95-114 [facility] [address] DO Work Phone: 4.3\S\4.3 Normal 3.5-5.1 [facility] [address] DO Work Phone: 137\S\137 Normal 136-146 [facility] [address] DO Work Phone: 21\S\21 Normal 9-23 [facility] [address] DO Work Phone: > 60 Normal [facility] [address] DO Work Phone: [phone] Comment on above: GFR estimated refere nce range: According to KDOQI guidelines, <60 ml/min/1.73m2 is sufficient to diagnose a patient with chronic kidney disease. 0.88\S\0.88 Normal 0.64-1.27 [facility] [address] DO Work Phone: [phone] 2.6\S\2.6 Normal <5.0 [facility] [address] DO Work Phone: [phone] Comment on above: PERFORMED BY:[address] [address] [address] [place], [place] [phone] MEDICAL DIRECTORJIANLAN SUN M.D. 25\S\25 Normal [facility] [address] DO Work Phone: 125\S\125 Normal 35-149 [facility] [place] [address] DO Work Phone: Comment on above: TRIG ATP III CLASSIF ICATION TRIG less than 150 mg/dL Normal TRIG 150-199 mg/dL Borderline high TRIG 200-500 mg/dL High TRIG greater than 500 mg/dL Very high Standard traceable to the Center for Disease Conrtrol and Prevention (CDC) test method. 41\S\41 Normal 29-71 [facility] [place] [address] DO Work Phone: Comment on above: HDL CHOL ATP-III CLA SSIFICATION Cardiovascular Risk HDL > or equal to 60 mg/dL LOW HDL < 40 mg/dL HIGH Platelet mean volume Auto (B ld) [Entitic vol]Ordered By: Julio aSdler on 12-24-2021 Platelet mean volume (Bld) [Entitic vol] 10.4 fL 6.6-10.1 [facility] Platelet poor plasma interna tional normalized ratio (INR) by coagulation assay (relatOrdered By: Julio Sadler on 12-24-2021 INR Coag (PPP) [Relative time] 1.2 {INR} [facility] Comment on above: INR Therapeutic Rang e [...] 12-24-2021 Platelets (Bld) [#/Vol] 133 10*3/uL 150-450 [facility] RBC Auto (Bld) [#/Vol]Ordere d By: Julio Sadler on 12-24-2021 RBC (Bld) [#/Vol] 4.48 10*6/uL 3.90-5.60 [facility] Serum or plasma chloride rin surement (moles/volume)Ordered By: Julio Sadler on 12-24-2021 Chloride [Moles/Vol] 101 mmol/L 95-114 [facility] Serum or plasma high density lipoprotein (HDL) cholesterol measurementOrdered By: Julio Sadler on 12-24-2021 Cholesterol in HDL [Mass/Vol] 41 mg/dL 29-71 [facility] Comment on above: HDL CHOL ATP-III CLA SSIFICATION Cardiovascular RiskHDL > or equal to 60 mg/dL LOWHDL < 40 mg/dL HIGH Serum or plasma potassium me asurement (moles/volume)Ordered By: Julio Sadler on 12-24-2021 Potassium [Moles/Vol] 4.3 mmol/L 3.5-5.1 [facility] Serum or plasma sodium measu rement (moles/volume)Ordered By: Julio Sadler on 12-24-2021 Sodium [Moles/Vol] 137 mmol/L 136-146 [facility] Serum or plasma total carbon dioxide measurement (moles/volume)Ordered By: Julio Sadler on 12-24-2021 CO2 [Moles/Vol] 25.9 mmol/L 22.0-30.0 [facility] Serum or plasma total choles terol/high density lipoprotein (HDL) cholesterol mass ratOrdered By: Julio Sadler on 12-24-2021 Cholesterol.total/Ch olesterol in HDL [Mass ratio] 2.6 {ratio} [facility] Serum or plasma urea nitroge n measurement (mass/volume)Ordered By: Julio Sadler on 12-24-2021 Urea nitrogen [Mass/Vol] 21 mg/dL 9-23 [facility] Triglyceride [Mass/volume] i n Serum or PlasmaOrdered By: Julio Sadler on 12-24-2021 Triglyceride [Mass/Vol] 125 mg/dL 35-149 [facility] Comment on above: TRIG ATP III CLASSIF [...] Cardiac Catherization; Status:Active - Retrospective Authorization; Requested for:[id number]; Abnormal stress test, Class 1 obesity with body mass index (BMI) of 30.0 to 30.9 in adult, PMH: Ventricular tachycardia (paroxysmal) IO EKG Electrocardiogram- 12 Lead; Status:Complete; Done: [id number] Class 1 obesity with body mass index (BMI) of 30.0 to 30.9 in adult Healthy Weight Tips; Status:Complete - Retrospective Authorization; Done: [id number] SocHx: Former smoker Tobacco Use Screening; Status:Complete; Done: [id number] Patient Instructions By signing my name below, [...] motion abnormalities. 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 Called [facility] pharmacy in [place] to get medications Allergies Medication No Known [...] Screening.on 022 Adult depression screening assessment No [facility] [address] DO Work Phone: Tobacco use status [facility] b) No [facility] [address] DO Work Phone: Vital Signs Date Time Vital Sign Value Performing Clinician Facility 10-01-2023 10:14-0500 Body height 160 cm Julio Sadler MD Work Phone: [facility] 10-01-2023 10:14-0500 Body mass index (BMI) [Ratio] 34.37 kg/m2 Julio Sadler MD Work Phone: [facility] 10-01-2023 10:14-0500 Body weight 88 kg Julio Sadler MD Work Phone: [facility] 10-01-2023 10:14-0500 Diastolic blood pressure 82 mm[Hg] Julio Sadler MD Work Phone: [facility] 10-01-2023 10:14-0500 Heart rate 72 /min Julio Sadler MD Work Phone: [facility] 10-01-2023 10:14-0500 Systolic blood pressure 138 mm[Hg] Julio Sadler MD Work Phone: [facility] 11-19-2022 00:00-0400 60 1 Shaikh Ramses Work Phone: [facility] 600 DO Work Phone: Comment on above: [facility] 11-05-2022 10:44-0500 Body height 165.1 cm Shaikh Ramses Work Phone: [facility] 250 DO Work Phone: 11-05-2022 10:44-0500 Body mass index (BMI) [Ratio] 31.95 kg/m2 Shaikh Ectorwad Work Phone: [facility] 250 DO Work Phone: 11-05-2022 10:44-0500 Body surface area Derived from formula 1.94 m2 Shaikh Ectorwad Work Phone: [facility] 250 DO Work Phone: 11-05-2022 10:44-0500 Body weight 87.09 kg Shaikh Ectorwad Work Phone: [facility] 250 DO Work Phone: 11-05-2022 10:44-0500 Diastolic blood pressure 62 mm[Hg] Shaikh Ectorwad Work Phone: [facility] 250 DO Work Phone: 11-05-2022 10:44-0500 Heart rate 76 /min Shaikh Ectorwad Work Phone: [facility] 250 DO Work Phone: 11-05-2022 10:44-0500 Systolic blood pressure 124 mm[Hg] Shaikh Ectorwad Work Phone: [facility] 250 DO Work Phone: 12-13-2021 12:53-0400 Body height 167.64 cm Shaikh Ectorwad Work Phone: [facility] 250 DO Work Phone: 12-13-2021 12:53-0400 Body mass index (BMI) [Ratio] 30.18 kg/m2 Stephens Fawwad Work Phone: [facility] 250 DO Work Phone: 12-13-2021 12:53-0400 Body surface area Derived from formula 1.94 m2 Shaikh Fredrickd Work Phone: [facility] 250 DO Work Phone: 12-13-2021 12:53-0400 Body weight 84.82 kg Shaikh Fredrickd Work Phone: [facility] 250 DO Work Phone: 12-13-2021 12:53-0400 Diastolic blood pressure 72 mm[Hg] Shaikh Fredrickd Work Phone: [facility] 250 DO Work Phone: 12-13-2021 12:53-0400 Heart rate 70 /min Shaikh Ectorwad Work Phone: [facility] 250 DO Work Phone: 12-13-2021 12:53-0400 Systolic blood pressure 110 mm[Hg] Shaikh Fredrickd Work Phone: [facility] 250 DO Work Phone: Encounters Encounter Date Encounter Type Care Provider Facility Start: 06-23-2024 End: 06-23-2024 Refill Paulette Webb COT Work Phone: [facility] Comment on above: Age-related nuclear cataract of both eyes (Primary Dx) Start: 06-06-2024 End: 06-06-2024 Refill Tanya Arias [employer] BUSINESS INTELLIGENCE CONSULTANT Work Phone: [facility] Comment on above: Hyperlipidemia, unsp ecified hyperlipidemia type (CMS/HCC) Start: 05-24-2024 End: 05-24-2024 ambulatory GREGORY SOLIS Not Available Start: 03-02-2024 End: 03-02-2024 ambulatory STEPHENS FAWWAD Not Available Start: 12-02-2023 End: 12-02-2023 ambulatory STEPHENS FAWWAD Not Available Start: 11-10-2023 End: 11-10-2023 ambulatory GREGORY SOLIS Not Available Start: 10-07-2023 Orders Only Shaikh Ramses HARP Work Phone: [facility] Comment on above: Type 2 diabetes yvonne itus without complication, without long- term current use of insulin (CMS/HCC) (Primary Dx) Start: 10-06-2023 Clinisync Result Encounter Shaikh Ramses HARP Work Phone: [facility] External Department Unsolicited Start: 10-06-2023 Clinisync Result Encounter Shaikh Ramses HARP Work Phone: [facility] External Department Unsolicited Start: 10-01-2023 End: 10-01-2023 ambulatory JULIO Vigil [facility] Start: 10-01-2023 End: 10-01-2023 Office outpatient visit 25 minutes Julio Sadler MD Work Phone: [facility] Comment on above: 3-vessel coronary ar ben disease; Cardiomyopathy, unspecified type (CMS/HCC); Hyperlipidemia, unspecified hyperlipidemia type; Diabetes mellitus of other type without complication, unspecified whether jail insulin use (CMS/HCC); Never smoked any substance Start: 09-02-2023 End: 09-02-2023 ambulatory SHAIKH RAMSES Not Available Start: 01-01-2023 End: 01-02-[address] JULIO SADLER Facility:[facility]1 Start: 11-21-2022 Patient encounter procedure [facility] Work Phone: Start: 11-19-2022 End: 11-20-2022 ambulatory SHAIKH Ruth PEARCE Facility:[facility]1 Start: 11-05-2022 Office outpatient vi sit 25 minutes Shaikh Ramses [facility] Work Phone: Start: 11-05-2022 ambulatory Julio Sadler Facility : Start: 06-23-2022 End: 06-24-2022 ambulatory STEPHENS H VANIAMIRZADee Facility:[facility]1 Start: 06-18-2022 End: 06-19-2022 ambulatory SHAIKH Ruth PEARCE Facility:[facility]1 Start: 02-04-2022 Chart Update Stephens Ramses Work Phone: [facility] 250 DO Work Phone: Start: 12-30-2021 Patient encounter procedure Shaikh Ramses Work Phone: [facility] 250 DO Work Phone: Start: 12-27-2021 Chart Update Stephens Ramses Work Phone: [facility] 250 DO Work Phone: Start: 12-26-2021 ambulatory Julio Sadler Facility :[id number] Start: 12-26-2021 SURGNON, Provider: Julio Sadler, Status: Pen, Time: 2:00 PM Shaikh Ramses Work Phone: [facility] 250 DO Work Phone: Start: 12-26-2021 End: 12-26-2021 ambulatory Shaikh Ramses Facility:[facility] Start: 12-26-2021 Chart Update Shaikh Ramses Work Phone: [facility] 250 DO Work Phone: Start: 12-24-2021 End: 12-24-2021 Patient encounter procedure MD Julio Sadler Work Phone: [facility]-Pre-Surgical Testing Start: 12-13-2021 ambulatory Julio Sadler Facility : Start: 11-20-2021 ambulatory Julio Sadler Facility :[facility] Procedures Date Procedure Procedure Detail Performing Clinician Start: 10-06-2023 [facility] CHUY Pearce MD Work Phone: Start: 10-01-2023 Lipid panel JULIO RAWLS Start: 12-24-2021 SARS Antigen (LFIA) MD Julio Sadler Work Phone: Plan of Treatment Date Care Activity Detail Author Start: 05-24-2025 Glaucoma screening Diabetes: R etinopathy Screening [facility] Start: 12-01-2024 Screening for malign ant neoplasm of colon Colorectal Cancer Screening [facility] Comment on above: Postponed from 12/19 (Patient Refused) Start: 10-06-2024 Urine screening for protein Diabetes: Urine Protein Screening [facility] Start: 08-25-2024 Hemoglobin A1c measurement Diabetes: Hemoglobin A1C [facility] Start: 07-13-2024 End: 07-13-2024 Patient encounter procedure 07/13/2024 4:00 PM EST Office Visit [facility] [address] [place] [address] Tanya Arias NP [address] [place] [phone] [facility] Start: 07-07-2024 End: 07-07-2024 Patient encounter procedure 07/07/2024 8:40 AM EST Procedure Visit [facility] EXT DEP Gregory Solis, DO [address] [place] [address] [facility] Start: 07-05-2024 End: 07-05-2024 Patient encounter procedure 07/05/2024 11:10 AM EST Office Visit [facility] [address] [facility] [address] [place] [address] uJlio Sadler MD [address] [facility] [address] [place] [address] [facility] Start: 05-01-2024 Influenza vaccination Influenza Vacc ine (#1) [facility] Start: 02-28-2024 Influenza vaccination Influenza Vacc ine (#1) [facility] Comment on above: Postponed from 05/01 (Patient Refused) Start: 01-04-2024 Hemoglobin A1c measurement Diabetes: Hemoglobin A1C [facility] Start: 12-02-2023 End: 12-02-2023 Patient encounter procedure 12/02/2023 3:30 PM EDT Office Visit [facility] [address] [place] [address] Shaikh Pearce MD [address] [place] [address] [facility] Start: 10-01-2023 End: 10-01-2024 Lipid 1996 panel - Serum or Plasma Lipid Panel Lab Routine Hyperlipidemia, unspecified hyperlipidemia type Expected: 10/01/2023 (Approximate), Expires: 10/01/2024 [facility] Service Area Work Phone: Comment on above: Expected: 10/01/2023 (Approximate), Expires: 10/01/2024 Start: 08-04-2023 FUV, Provider: Julio Sadler, Status: Pen, Time: 10:50 AM FUV, Provider: Julio Sadler, Status: Pen, Time: 10:50 AM [facility] 250 DO Work Phone: Start: 05-01-2023 Influenza vaccination Influenza Vacc ine (#1) [facility] Start: 01-20-2022 FUV, Provider: Julio Sadler, Status: Pen, Time: 3:50 PM FUV, Provider: Julio Sadler, Status: Pen, [facility]: 3:50 PM [facility] Work Phone: Start: 2008 Zoster Vaccines (1 o f 2) Zoster Vaccines (1 of 2) [facility] Start: 1980 DTaP/Tdap/Td Vaccine s (1 - Tdap) DTaP/Tdap/Td Vaccines (1 - Tdap) [facility] Start: 1977 Urine screening for protein Diabetes: Urine Protein Screening [facility] Start: 1976 [facility]: [facility] Diabetic foot examination Diabetes: Foot Exam [facility] Start: 1968 Glaucoma screening Diabetes: R etinopathy Screening [facility] Start: 1964 Pneumococcal Vaccine : 65+ Years (1 - PCV) Pneumococcal Vaccine: 65+ Years (1 - PCV) [facility] Start: 1964 Pneumococcal Vaccine : 65+ Years (1 of 2 - PCV) Pneumococcal Vaccine: 65+ Years (1 of 2 - PCV) [facility] Start: 1964 Pneumococcal Vaccine : Pediatrics (0 to 5 Years) and At-Risk Patients (6 to 64 Years) (1 - PCV) Pneumococcal Vaccine: Pediatrics (0 to 5 Years) and At-Risk Patients (6 to 64 Years) (1 - PCV) [facility] Start: 12-20-1959 MMR Vaccines (1 of 1 - Standard series) MMR Vaccines (1 of 1 - Standard series) [facility] Start: 06-20-1959 COVID-19 Vaccine (#1) COVID-19 Vacci ne (#1) [facility] Start: 1958 Hemoglobin A1c measurement Diabetes: Hemoglobin A1C [facility] Start: 1958 HIV screening HIV Screening [facility] Start: 1958 Lipid panel Lipid Panel [facility] Start: 1958 Screening for malign ant neoplasm of colon [facility] Start: 1958 Yearly Adult Physical Yearly Adult P hysical [facility] Payers Date Payer Category Payer Self-pay [id number] 2018 Unknown 1959 Unknown [id number] 1958 Unknown [id number] 2.16. [id number] 1958 Unknown [id number] 2.16. [id number] 1958 Unknown [id number] 2.16. 840.1.260579.3.579.2.356 1958 Unknown [id number] 2.16.84 0.1.889969.3.579.2.593 1958 Unknown [id number] 2.16.84 0.1.644805.3.579.2.593 1958 Unknown [id number] 2.16.84 0.1.002045.3.579.2.593 1958 Unknown [id number] 2.16.84 0.1.486863.3.579.2.593 1958 Unknown [id number] 2.16.84 0.1.244690.3.579.2.593 1958 Unknown [id number] 2.16.8 40.1.293806.3.579.2.1244 1958 Unknown [id number] 2.16.84 0.1.953311.3.579.2.1259 1958 Unknown [id number] 2.16.84 0.1.326825.3.579.2.1259 1958 Unknown [id number] 2.16.84 0.1.596479.3.579.2.1259 1958 Unknown [id number] 2.16.84 0.1.200225.3.579.2.1259 1958 Unknown [id number] 2.16.840 .1.806830.3.579.2.1259 Unknown [id number] 2.16.8 [id number] Social History Date Type Detail Facility Start: 12-24-2021 End: 12-02-2023 Tobacco smoking status NHIS Ex-smoker (finding) [facility] Start: 1960 Sex Assigned At Male F [facility] Start: 10-01-2023 End: 03-02-2024 Former smoker Former smoker -[facility] 250 DO Work Phone: Comment on above: QUIT IN 1999; Start: 09-02-2023 End: 10-01-2023 Tobacco smoking status NHIS Never smoked tobacco [facility] Work Phone: Start: 10-01-2023 End: 12-02-2023 Tobacco use and exposure Smokeless tobacco non-user [facility] Work Phone: Start: 10-01-2023 End: 05-24-2024 Alcohol intake Lifetime non-drinker (finding) [facility] Work Phone: Start: 10-01-2023 End: 03-02-2024 Tobacco use panel [facility] Work Phone: Start: 1960 [facility] Start: 09-21-2023 End: 10-01-2023 Exposure to SARS-CoV-2 (event) Not sure [facility] History of tobacco use Current smoker [facility] History of tobacco use Cigarette Smoker [facility] History of tobacco use Passive smoker [facility] Medical Equipment Procedure Code Equipment Code Equipment Origin al Text Equipment Identifier Dates 1 each by Other route if needed [id number] Start: 06-23-2023 USE TO CHECK FAS TING BLOOD SUGAR EVERY 12 HOURS [id number] Start: 12-21-2023 History of Present illness Narrative [...] other type without complication, 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 Never smoked any substance Scribe Attestation By signing my name below, Tammy Coats LPN , Scribe attest that this documentation has been prepared under the direction and in the presence of Julio Sadler MD. documented in this encounter [facility] Work Phone: Instructions 10-01-2023 Patient Instructions Note [...] of your visit. documented in this encounter [facility] Work Phone: Evaluation note Note Date & Type Note Facility Evaluation note [facility]: Evaluation note Note Date & Type Note Facility Evaluation note Diagnosis 3-vessel coronary artery disease Cardiomyopathy, unspecified type (CMS/HCC) Hyperlipidemia, unspecified hyperlipidemia type Diabetes mellitus of other type without complication, unspecified whether jail insulin use (CMS/HCC) Never smoked any substance documented in this encounter [facility] Work Phone: Evaluation note Note Date & Type Note Facility Evaluation note Diagnosis Type 2 diabetes mellitus without complication, without long-term current use of insulin (CMS/HCC)- Primary documented in this encounter [facility] Healthcare Evaluation note Note Date & Type Note Facility Evaluation note Diagnosis Hyperlipidemia, unspecified hyperlipidemia type (CMS/HCC) documented in this encounter [facility] Evaluation note Note Date & Type Note Facility Evaluation note Diagnosis Type 2 diabetes mellitus without complication, without long-term current use of insulin (CMS/HCC)- Primary Hyperlipidemia, unspecified hyperlipidemia type (CMS/HCC) Coronary artery disease involving caddo coronary artery of caddo heart without angina pectoris (CMS/HCC) Primary hypertension [...] hyperlipidemia type (CMS/HCC) Coronary artery disease involving caddo coronary artery of caddo heart without angina pectoris (CMS/HCC) Age-related nuclear cataract of both eyes- Primary documented in this encounter [facility] Healthcare Reason for referral (narrative) Consultation (Routine) - Authorized Note Date & Type Note Facility Reason for referral (narrati ve) Specialty Diagnoses / Procedures Referred By Contac t Referred To Contact Cardiology Diagnoses 3-vessel coronary artery disease Procedures Follow Up In Cardiology Julio Sadler MD [address] [facility] [address] [place] [address] Julio Sadler MD [address] [facility] [address] [place] [address] Referral ID Status Reason Start Date Expiration Date V isits Requested Visits Authorized [id number] Authorized 10/01/2023 09/30/2024 1 1 [facility] Work Phone: Chief Complaint and Reason for [...] mid RCA and left circumflex with mature [id number] and left to left collateral network. Ejection [...] Shaikh Ramses MD Primary Care Provider Active Inward Toll Operator Relationship Specialty Start Date End Date Shaikh Pearce MD PCP - General 12/13/21 Inward Toll Operator Relationship Specialty Start Date End Date Shaikh Pearce MD PCP - General Internal Medicine 07/01/23 Inward Toll Operator Relationship Specialty Start Date End Date Shaikh Pearce MD PCP - General Internal Medicine 07/01/23 Inward Toll Operator Relationship Specialty Start Date End Date Fuentes Wilson MD [address] [place] [phone] PCP - General Family Medicine 05/10/24 Arvin Tucker OD [address] [place] [address] Referring Physician Optometry 11/11/23 Tanya Arias NP [address] [address] Nurse Practitioner Family Medicine 05/10/24 Inward Toll Operator Relationship Specialty Start Date End Date Fuentes Wilson MD [address] [place] [phone] PCP - General Family Medicine 05/10/24 Arvin Tucker OD [address] [place] [address] Referring Physician Optometry 11/11/23 Tanya Arias NP [address] [place] [phone] Nurse Practitioner Family Medicine 05/10/24 Goals (unrecognized section and content) Goals may be documented in a n alternate section (unrecognized sect ion and content) No Status Records FoundNo Status Records FoundNo Status Records FoundNo Status Records FoundNo Status Records FoundNo Status Records FoundNo Status Records Found INFORMATION SOURCE (unrecogn ized section and content) DATE CREATED AUTHOR 02/05/2022 [facility] DATE CREATED AUTHOR AUTHOR'S ORGANIZ ATION 11/07/2022 [facility] DATE CREATED AUTHOR AUTHOR'S ORGANIZ ATION 11/07/2022 [facility] DATE CREATED AUTHOR AUTHOR'S ORGANIZ ATION 01/08/2023 [facility] DATE CREATED AUTHOR AUTHOR'S ORGANIZ ATION 04/03/2023 [facility] DATE CREATED AUTHOR AUTHOR'S ORGANIZ ATION 10/04/2023 [facility] DATE CREATED AUTHOR AUTHOR'S ORGANIZ ATION 05/26/2024 [facility] EPIC Reason for Visit (unrecogniz [...] BE BASED ON THE PRIMARY CLINICAL RECORDS. [facility]. provides no warranty or guarantee of the accuracy or completeness of information in this document.
[2024-07-07] MEDS: DIAZEPAM 5 MG TABLET 10 MG PO (07:02)
[2024-07-07] MEDS: CYCLOPENTOLATE HCL 1% OP SOL 40 DROP/2 ML BOTTLE OP ×4 (07:03→07:23)
[2024-07-07] MEDS: TROPICAMIDE 1% OP SOL 300 DROP/15 ML BOTTLE OP ×4 (07:03→07:24)
[2024-07-07] MEDS: PHENYLEPHRINE HCL 2.5% OP SOL 40 DROP/2 ML BOTTLE OP ×4 (07:03→07:24)
[2024-07-07] MEDS: BESIFLOXACIN HCL 100 DROP DROPS.SUSP OP ×4 (07:04→07:24)
[2024-07-07 07:08] VITALS: BP 111/69; PULSE 93; TEMP 36.2; O2SAT 96
[2024-07-07] MEDS: BETADINE POVIDONE-IODINE 5% OP SOL 30 ML BOTTLE OP (08:08)
[2024-07-07] MEDS: LIDOCAINE 2% JELLY 10 ML TOPICAL (08:09)
[2024-07-07] MEDS: PROPARACAINE HCL 0.5% 300 DROP/15 ML BOTTLE OP (08:09)
[2024-07-07 08:16] VITALS: BP 130/81; PULSE 86; O2SAT 94
[2024-07-07] MEDS: HYALURONATE SODIUM 16 MG/ML SYRINGE OP (08:17)
[2024-07-07] MEDS: PHENYLEPHRINE/KETOROLAC 1-0.3% ML VIAL 4 ML IRR (08:17)
[2024-07-07] MEDS: TETRACAINE HCL 0.5% OP SOL 80 DROP/4 ML BOTTLE OP (08:17)
[2024-07-07] MEDS: CEFUROXIME SODIUM 750 MG, 0.9 % SODIUM CHLORIDE 16.3 ML OP (08:18)
[2024-07-07] MEDS: LIDOCAINE HCL 1% PF 20 MG/2 ML VIAL INJ (08:18)
[2024-07-07 08:19] VITALS: BP 128/80; PULSE 86; O2SAT 97
[2024-07-07] MEDS: PREDNISOLONE ACETATE OP 1% SUSP 100 DROPS/5 ML 1 DROP OP (08:28)
[2024-07-07] MEDS: APRACLONIDINE HCL 0.5% SOL 100 DROP/5 ML BOTTLE OP (08:28)
== END 2024-07-07 08:29 | disposition home or self-care (01) ==
LOC: SURGOUT 06:48
PROVIDERS: Visit Provider Ophthalmology
PROC: (CPT 66984; principal; 2024-07-07 08:00)
DX: H25.12 Age-related nuclear cataract, left eye (principal)
CPT/HCPCS: 66984; J0697; V2630

== ENCOUNTER 2024-10-07 10:16 | Outpatient (OUT) | payer BC, SELFPAY ==
[2024-10-07 10:48] LABS: Basophils Percent Auto 0.3 % (0.2-2.0); Eosinophils Absolute Auto 0.2 10^3/uL (0.0-0.7); Eosinophils Percent Auto 2.7 % (0.9-7.0); Hematocrit 45.4 % (42.0-54.0); Hemoglobin 14.7 g/dL (14.0-18.0); Immature Granulocytes Abs Auto 0.02 10^3/uL (0.00-0.03); Immature Granulocytes Pct Auto 0.2 % (0.0-0.5); Lymphocytes Absolute Auto 1.6 10^3/uL (1.2-3.8); Lymphocytes Percent Auto 18.8 % (20.5-60.0); Mean Corpuscular HGB Conc 32.4 g/dL (29.9-35.2); Mean Corpuscular Hemoglobin 28.1 pg (25.9-34.0); Mean Corpuscular Volume 86.6 fL (80.0-94.0); Mean Platelet Volume 11.6 fL (9.5-13.5); Monocytes Absolute Auto 0.6 10^3/uL (0.3-0.8); Monocytes Percent Auto 6.4 % (1.7-12.0); Neutrophils Absolute Auto 6.2 10^3/uL (1.4-6.5); Neutrophils Percent Auto 71.6 % (43.0-75.0); Platelet Count 159 10^3/uL (150-450); Red Blood Count 5.24 10^6/uL (4.70-6.10); Red Cell Distribution Width 12.9 % (11.0-15.0); White Blood Count 8.6 10^3/uL (4.0-11.0)
[2024-10-07 12:16] LABS: Alanine Aminotransferase 26 U/L (16-63); Albumin Globulin Ratio 0.9; Albumin Level 3.6 g/dL (3.4-5.0); Alkaline Phosphatase 76 U/L (46-116); Aspartate Amino Transferase 20 U/L (15-37); BUN Creatinine Ratio 23.2; Bilirubin Total 0.9 mg/dL (0.2-1.0); Calcium 9.2 mg/dL (8.5-10.1); Carbon Dioxide 29.6 mmol/L (21.0-32.0); Chloride 104 mmol/L (98-107); Chol HDL Ratio 2.4; Cholesterol 121 mg/dL (<=200); Estimated GFR (African America 57 (>=60 mL/min/1.73m^2); Estimated GFR (Non-African Ame 47 (>=60 mL/min/1.73m^2); Globulin 3.9 g/dL; Glucose 98 mg/dL (74-106); HDL Cholesterol 50 mg/dL (40-60); Potassium 4.6 mmol/L (3.5-5.1); Sodium 143 mmol/L (136-145); TSH W/ REFLEX FT4 1.838 uIU/mL (0.358-3.740); Total Protein 7.5 g/dL (6.4-8.2); Triglycerides 231 mg/dL (<=150); VLDL CHOLESTEROL 46.2 mg/dL
[2024-10-07 12:53] LABS: Estimated Average Glucose 146 mg/dL; Glycohemoglobin A1C 6.7 % (4.5-6.2)
== END 2024-10-07 10:17 | disposition home or self-care (01) ==
DX: E78.5 Hyperlipidemia, unspecified (principal); I10 Essential (primary) hypertension; E11.3393 Type 2 diabetes mellitus with moderate nonproliferative diabetic retinopathy without macular edema, bilateral
CPT/HCPCS: 36415; 80053; 80061; 83036; 84443; 85025

== ENCOUNTER 2025-02-20 15:29 | Outpatient (OUT) | payer BC, SELFPAY ==
[2025-02-20 16:00] LABS: Anion Gap 12.1; BUN Creatinine Ratio 18.7; Calcium 9.1 mg/dL (8.5-10.1); Carbon Dioxide 28.2 mmol/L (21.0-32.0); Chloride 105 mmol/L (98-107); Estimated GFR (African America 45 (>=60 mL/min/1.73m^2); Estimated GFR (Non-African Ame 37 (>=60 mL/min/1.73m^2); Glucose 82 mg/dL (74-106); Potassium 4.3 mmol/L (3.5-5.1); Sodium 141 mmol/L (136-145)
== END 2025-02-20 15:30 | disposition home or self-care (01) ==
PROVIDERS: PCP Nurse Practitioner; Visit Provider Nurse Practitioner
DX: N18.31 Chronic kidney disease, stage 3a (principal)
CPT/HCPCS: 36415; 80048

== ENCOUNTER 2025-03-15 16:43 | Outpatient (OUT) | payer BC, SELFPAY ==
--- OUTSIDE RECORDS SUMMARY | 2025-03-15 16:46 | XMS_ITS | Encounter Summary ---
Author Organization [facility] Address [address] [place] [address] Phone Care Team Providers Care Music Video Director Name Role Phone Tanya Arias VP ANCILLARY-DISPERSION MIXER Primary Care Prov ider Encounter Details Date Type Department Care Team (Late st Contact Info) Description 10/07/2024 Scanned Document [facility] [address] [place] [address] Scanning, Generic Provider Social History Tobacco Use Types Packs/Day Years Used Date Smoking Tobacco: Never Smokeless Tobacco: Never Alcohol Use Standard Drinks/Week Comments Not Currently 0 (1 standard drink = 0.6 oz pur e alcohol) Sex and Gender Information Value Date Recorded Sex Assigned at Not on file Legal Sex Male 11:13 PM EST Gender Identity Not on file Sexual Orientation Not on file documented as of this encounter Plan of Treatment Upcoming Encounters Date Type Department Care Team (Late st Contact Info) Description 04/10/2025 1:50 PM EDT Office Visit [facility] [address] [facility] [address] [place] [address] Yohan Sadler MD [address] [facility] [address] [place] [address] documented as of this encounter Procedures Procedure Name Priority Date/Time Associated Diagnosis Comments OUTSIDE LAB SCAN 10/07/2024 documented in this encounter Results * OUTSIDE LAB SCAN (10/07/2024) Narrative 10/07/2024 Ordered by an unspecified provider. us Generic Provider Scanning OUTSIDE SCAN Final Result documented in this encounter Visit Diagnoses Not on filedocumented in this encounter Additional Health Concerns Assessment Noted Time A fall risk assessment has been complete d for the patient 08/19/2024 1:23 PM EST documented as of this encounter Care Teams Music Video Director Relationship Specialty Start Date End Date Tanya Arias APRN-TAMEKA [address] [place] [address] PCP - General Family Medicine 08/19/24 documented as of this encounter
--- OUTSIDE RECORDS SUMMARY | 2025-03-15 16:46 | XMS_ITS | Clinical Summary ---
Author Organization [facility] Address [address] [place] [address] Care Team Providers Care Jointer Submarine Cable Name Role Phone Unavailable Primary Care Provider Unavailabl e Social History Tobacco Use Types Packs/Day Years Used Date Smoking Tobacco: Never Assessed [place] Safety & Environment Answer Date Rec orded Fear of Current or Ex-Partner Not on file Emotionally Abused Not on file 10/22/2023 Physically Abused Not on file 10/22/2023 Sexually Abused Not on file 10/22/2023 Physically or Sexually Abused Not on file Sex and Gender Information Value Date Recorded Sex Assigned at Not on file Legal Sex Male 12:44 AM EDT Gender Identity Not on file Sexual Orientation Not on file Plan of Treatment Not on file
--- OUTSIDE RECORDS SUMMARY | 2025-03-15 16:46 | XMS_ITS | Encounter Summary ---
Author Organization [facility] Address [address] [place] [address] Phone Care Team Providers Care Ware Cleaner Name Role Phone Shaikh LOYD Pearce Primary Care Provider [phone] Tanya Arias Primary Care Prov ider Encounter Details Date Type Department Care Team (Late st Contact Info) Description 11/20/2021 Orders Only [facility] [address] [place] [address] Conversion, Onbase Social History Tobacco Use Types Packs/Day Years Used Date Smoking Tobacco: Never Assessed Sex and Gender Information Value Date Recorded Sex Assigned at Not on file Legal Sex Male 11:13 PM EST Gender Identity Not on file Sexual Orientation Not on file documented as of this encounter Plan of Treatment Upcoming Encounters Date Type Department Care Team (Late st Contact Info) Description 04/10/2025 1:50 PM EDT Office Visit [facility] [address] [facility] [address] [place] [address] Yohan Sadler MD [address] [facility] [address] [place] [address] Scheduled Orders Name Type Priority Associated Diagnoses Orde r Schedule OUTSIDE LAB SCAN Lab Ordered: 11/20/2021 documented as of this encounter Visit Diagnoses Not on filedocumented in this encounter Care Teams Ware Cleaner Relationship Specialty Start Date End Date Shaikh Pearce MD PCP - General 12/13/21 08/18/24 Tanya Arias APRN-DIRECTOR OF SOLUTIONS ARCHITECTURE [address] [place] [address] PCP - General Family Medicine 08/19/24 documented as of this encounter
--- OUTSIDE RECORDS SUMMARY | 2025-03-15 16:46 | XMS_ITS | Encounter Summary ---
Author Organization [facility] Address [address] [place] [address] Phone Care Team Providers Care Data Entry Analyst Name Role Phone Shaikh LOYD Pearce Primary Care Provider [phone] Tanya Arias Primary Care Prov ider Encounter Details Date Type Department Care Team (Late st Contact Info) Description 01/01/2023 Orders Only [facility] [address] [place] [address] Conversion, Onbase Social History Tobacco Use Types [...] Description 04/10/2025 1:50 PM EDT Office Visit [facility] [address] [facility] [address] [place] [address] Yohan Sadler MD [address] [facility] [address] [place] [address] Scheduled Orders Name Type Priority Associated Diagnoses Orde r Schedule OUTSIDE LAB SCAN Lab Ordered: 01/01/2023 documented as of this encounter Visit Diagnoses Not on filedocumented in this encounter Care Teams Data Entry Analyst Relationship Specialty Start Date End Date Shaikh Pearce MD PCP - General 12/13/21 08/18/24 Tanya Arias APRN-QA ANALYST [address] [place] [address] PCP - General Family Medicine 08/19/24 documented as of this encounter
--- OUTSIDE RECORDS SUMMARY | 2025-03-15 16:46 | XMS_ITS | Encounter Summary ---
Author Organization [facility] Address [address] [place] [address] Phone Care Team Providers Care Queen Producer Name Role Phone Shaikh LOYD Pearce Primary Care Provider [phone] Tanya Arias Primary Care Prov ider Encounter Details Date Type Department Care Team (Late st Contact Info) Description 1960 Scanned Document [facility] [address] [place] [phone] Scanning, Generic Provider Social History Tobacco Use [...] Description 04/10/2025 1:50 PM EDT Office Visit [facility] [address] [facility] [address] [place] [address] Yohan Sadler MD [address] [facility] [address] [place], [place] [phone] documented as of this encounter Procedures Procedure Name Priority Date/Time Associated Diagnosis Comments OUTSIDE LAB SCAN 1960 documented in this encounter Results * OUTSIDE LAB SCAN (1960) Narrative 1960 Ordered by an unspecified provider. us Generic Provider Scanning OUTSIDE SCAN Final Result documented in this encounter Visit Diagnoses Not on filedocumented in this encounter Care Teams Queen Producer Relationship Specialty Start Date End Date Shaikh Pearce MD PCP - General 12/13/21 08/18/24 Tanya Arias APRN-TAMEKA [address] [place] [phone] PCP - General Family Medicine 08/19/24 documented as of this encounter
--- NOTE | 2025-03-15 17:13 | US_ITS ---
The [address] [address] Patient Name: GIAN ANDRADE MRN: [id number] date: 1960 Sex: M Assigned Patient Location: US Current Patient Location: Accession/Order Number: [id number] Exam Date: 03/16/2025 08:16 Report Date: 03/16/2025 08:18 At the request of: CORNELIO DINERO NP Procedure: US renal BI BILATERAL RENAL AND BLADDER ULTRASOUND CLINICAL HISTORY: CKD STAGE 3B N18.32 COMPARISON: None Estimation of renal size is approximately 11.6 cm on the right and 11.8 cm on the left. There are no shadowing calculi or hydronephrosis. No renal mass lesions were imaged. There is no perinephric fluid. The urinary bladder is partially distended with a volume of 514 mL. No contour or intraluminal abnormalities are seen. US/US renal BI IMPRESSION: NO OBSTRUCTIVE UROPATHY. Impression dictated by: Maryam Patino M.D. 03/16/2025 8:18 AM Dictation Location: [place] [address] Electronically authenticated by: [id number] Date: 03/16/2025 08:18
== END 2025-03-15 16:44 | disposition home or self-care (01) ==
PROVIDERS: PCP Nurse Practitioner; Visit Provider Nurse Practitioner
DX: N18.32 Chronic kidney disease, stage 3b (principal)
CPT/HCPCS: 76775

== ENCOUNTER 2025-04-21 06:23 | Outpatient (OUT) | payer BC, SELFPAY ==
--- OUTSIDE RECORDS SUMMARY | 2025-04-21 06:26 | XMS_ITS | CCD ---
Author Organization [facility] Care Team Providers Care Mentally Impaired Teacher Name Role Phone MD Yohan Sadler Attending Provider [phone] MD Angelo Pearce Primary Care Provider [phone] Shaikh Pearce Unavailable Unavailable Unavailable Yohan Sadler Referring Unavailable Yohan Sadler Attending Unavailable Yohan Sadler Referring Unavailable Yohan Sadler Attending Unavailable Yohan Sadler Attending Unavailable Yohan Sadler Referring Unavailable FAWWAD, STEPHENS H Admitting Unavailable FAWWAD, STEPHENS H Attending Unavailable FAWWAD, STEPHENS H Consulting Unavailable FAWWAD, STEPHENS H Primary Care Unavailable SADLER, DR YOHAN Vigil Attending Unavailable SADLER, DR YOHAN Vigil Consulting Unavailable FAWWAD, STEPHENS H Primary Care Unavailable SADLER, DR YOHAN Vigil Admitting Unavailable FAWWAD, STEPHENS H Admitting Unavailable FAWWAD, STEPHENS H Attending Unavailable FAWWAD, STEPHENS H Consulting Unavailable FAWWAD, STEPHENS H Primary Care Unavailable SADLER, DR YOHAN Vigil Consulting Unavailable SADLER, DR YOHAN Vigil Admitting Unavailable FAWWAD, STEPHENS H Primary Care Unavailable SADLER, DR YOHAN Vigil Attending Unavailable FAWWAD, STEPHENS H Admitting Unavailable ZIEBERDR GARRETT Consulting Unavailable FAWWAD, STEPHENS H Attending Unavailable FAWWAD, STEPHENS H Primary Care Unavailable FAWWAD, STEPHENS H Consulting Unavailable Fawwad, Stephens Primary Care Unavailable Yohan Sadler Attending Unavailable Yohan Sadler Admitting Unavailable Fawwad , Primary Care Provider Ramses HARP, Stephens Primary Care Provider Caitlin OD, Aiyana Unavailable Fuentes Wilson MD Primary Care Provider Arias BALLISTICS EXPERT, [facility] Unavailable Arias SOFTWARE RELIABILITY ENGINEER-SURVEILLANCE INVESTIGATOR, [facility] Prov ider Arias BALLISTICS EXPERT, Enrique Unavailable Arias SOFTWARE RELIABILITY ENGINEER-SURVEILLANCE INVESTIGATOR, [facility] Prov ider Unavailable YOHAN SADLER Attending Unavailable YOHAN SADLER Referring [facility] Attending Unavailable YOHAN SADLER Referring Unavailable [facility] UnavailGREGORY Wu Attending Unavailable GREGORY SOLIS Attending Unavailable GREGORY SOLIS Attending Unavailable ENRIQUE ARIAS Attending UnavailGREGORY Wu Attending Unavailable GREGORY SOLIS Attending Unavailable GREGORY SOLIS Attending Unavailable GREGORY SOLIS Attending Unavailable MAKAYLA RAMOS Referring Unavailable GREGORY SOLIS Attending Unavailable GREGORY SOLIS Attending Unavailable GREGORY SOLIS Attending Unavailable FRANCISCA QUINTANA Attending Unavailable GREGORY SOLIS Attending Unavailable GREGORY SOLIS Attending Unavailable GREGORY SOLIS Attending Unavailable GREGORY SOLIS Attending Unavailable ENRIQUE ARIAS Attending UnavailGREGORY uW Attending Unavailable Allergies Allergy Classification Reported Allergen(s) Allergy Type Date of Onset Reaction(s) Facility (4 sources) glipiZIDE; Translations: [GLIPIZIDE] Drug Allergy 10-01-2023 [facility] (20 sources) glipiZIDE Drug Allergy 10-01-2023 [facility] Medications Current Medications Medication Drug Class(es) Dates Sig (Normalized) Sig (Original) aspirin 81 mg chewable tablet (20 sources) Platelet Aggregation Inhibitor, Nonsteroidal Anti-inflammatory Drug Start: 12-24-2021 take 81 mg by mouth once daily Aspirin Active 81 MG PO Daily December 24, 2021 4:12pm take 1 tablet by mouth in the mo rning aspirin 81 MG EC tablet Take 81 mg by mouth in the morning. Active dapagliflozin 10 mg oral tablet (20 sources) Sodium-Glucose Cotransporter 2 Inhibitor Start: 10-20-2024 End: 10-20-2025 take 1 tablet by mouth once daily Farxiga 10 MG TAKE 1 TABLET (10 MG) BY MOUTH DAILY. 02/24/2025 Active docosahexaenoic acid 120 mg / eicosapentaenoic acid 180 mg oral capsule (20 sources) Start: 10-20-2024 End: 10-20-2025 take 1 capsule by mouth at bedtime fish oil concentrate ([place]-3) 1000 MG capsule Indications: Hyperlipidemia, unspecified hyperlipidemia type Take 2 capsules (2 g) by mouth in the morning and 2 capsules (2 g) before bedtime. 120 capsule 10/20/2024 10/20/2025 Active glimepiride 2 mg oral tablet (20 sources) Sulfonylurea Start: 02-12-2024 End: 04-30-2025 take 1 tablet by mouth before mealtime glimepiride (Amaryl) 2 MG tablet Indications: Type 2 diabetes mellitus without complication, without long-term current use of insulin (HCC) Take 1 tablet (2 mg) by mouth in the morning. Take before meals. 90 tablet 01/30/2025 04/30/2025 Active glipiZIDE 5 mg oral tablet (8 sources) Sulfonylurea Start: 10-24-2021 End: 10-01-2023 glipiZIDE (Glucotrol) 5 mg tablet Take by mouth once daily. 0 10/24/2021 10/01/2023 Discontinued (Therapy completed) ketorolac tromethamine 4 mg/ml ophthalmic solution (20 sources) Nonsteroidal Anti-inflammatory Drug, Cyclooxygenase Inhibitor Start: 08-05-2024 End: 08-15-2024 ketorolac (Acular) 0.4 % ophthalmic solution Indications: Cystoid macular edema of both eyes , Moderate nonproliferative diabetic retinopathy of both eyes with macular edema associated with type 2 diabetes mellitus (HCC) Administer 1 drop into both eyes in the morning and 1 drop at noon and 1 drop in the evening and 1 drop before bedtime. 5 mL 3 08/15/2024 Active Start: 05-24-2024 End: 07-23-2024 take 1 drop(s) into the eye(s) in the morning ketorolac (Acular) 0.5 % ophthalmic solution Indications: Age-related nuclear cataract of both eyes Administer 1 drop into affected eye(s) in the morning and 1 drop before bedtime. 5 mL 1 06/23/2024 07/23/2024 Active metFORMIN hydrochloride 500 mg oral tablet (20 sources) Biguanide Start: 12-05-2024 End: 06-04-2025 take 1 tablet by mouth in the morning metFORMIN (Glucophage) 500 MG tablet Indications: Type 2 diabetes mellitus with hyperglycemia (HCC) Take 1 tablet (500 mg) by mouth in the morning and 1 tablet (500 mg) in the evening. Take with meals. 180 tablet 03/06/2025 06/04/2025 Active Start: 08-08-2024 End: 10-20-2024 take 1 tablet by mouth once metFORMIN (Glucophage) 500 MG tablet Indications: Type 2 diabetes mellitus with hyperglycemia (CMS/HCC) Take 1 tablet (500 mg) by mouth every 12 (twelve) hours 180 tablet 1 08/08/2024 10/20/2024 Discontinued (Reorder) Start: 12-24-2021 take 500 mg by mouth twice daily Metformin Active 500 MG PO Twice daily December 24, 2021 4:12pm Start: 10-24-2021 End: 08-08-2024 take 1 tablet by mouth every twelve hours metFORMIN (Glucophage) 500 mg tablet Take 1 tablet (500 mg) by mouth every 12 hours. 10/24/2021 Active 24 hr metoprolol succinate 50 mg extended release oral tablet (20 sources) beta-Adrenergic Evin Start: 11-21-2024 take 1 tablet by mouth once daily metoprolol succinate XL (Toprol-XL) 50 MG 24 hr tablet Indications: Irregular heart rate Take 1 tablet (50 mg) by mouth Daily Do not crush or chew. 90 tablet 11/21/2024 Active Start: 10-01-2023 End: 10-20-2024 take 1 tablet by mouth once daily metoprolol succinate XL (Toprol-XL) 50 MG 24 hr tablet Indications: Irregular heart rate Take 1 tablet (50 mg) by mouth Daily Do not crush or chew. 90 tablet 11/21/2024 Active Start: 12-24-2021 take 25 mg by [...] 09/21/2023 Active nitroglycerin 0.4 mg sublingual tablet (20 sources) Nitrate Vasodilator Start: 10-01-2023 End: 08-08-2025 nitroglycerin (Nitrostat) 0.4 MG SL tablet Indications: 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 Place 1 tablet (0.4 mg) under the tongue every 5 (five) minutes if needed for chest pain 30 tablet 08/08/2024 08/08/2025 Active ofloxacin 3 mg/ml ophthalmic solution (2 sources) Quinolone Antimicrobial Start: 06-23-2024 End: 06-24-2024 take 1 drop(s) into the eye(s) five times daily ofloxacin (Ocuflox) 0.3 % ophthalmic solution Indications: Age-related nuclear cataract of both eyes Administer 1 drop into affected eye(s) 5 (five) times a day for 1 day Starting 1 day before surgery, continue after surgery as directed 5 mL 1 06/23/2024 06/24/2024 Active Start: 05-24-2024 End: 05-25-2024 take 1 drop(s) into the eye(s) five times daily ofloxacin (Ocuflox) 0.3 % ophthalmic solution Indications: Age-related nuclear cataract of both eyes Administer 1 drop into affected eye(s) 5 (five) times a day for 1 day Starting 1 day before surgery, continue after surgery as directed 5 mL 1 05/24/2024 05/25/2024 Active omega 7-zud-xep-fish oil (Fish OiL) 1,000 (120-180) mg capsule (1 source) omega 3-dha-epa- fish oil (Fish OiL) 1,000 (120-180) mg capsule Take by mouth. Active SITagliptin 100 mg oral tablet (1 source) Dipeptidyl Peptidase 4 Inhibitor Start: 10-07-19 End: 01-05-20 take 1 tablet by mouth in the morning SITagliptin (Januvia) 100 MG tablet Indications: Type 2 diabetes mellitus without complication, without long-term current use of insulin (CMS/HCC) Take 1 tablet (100 mg) by mouth in the morning. 90 tablet 0 10/07/2023 01/05/2024 Active valsartan 80 mg oral tablet (20 sources) Angiotensin 2 Receptor Evin Start: 03-19-20 End: 06-17-20 take 1 tablet by mouth once daily valsartan (Diovan) 80 MG tablet Indications: 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 Take 1 tablet (80 mg) by mouth Daily 90 tablet 03/19/2025 06/17/2025 Active Start: 11-05-2022 End: 03-17-2025 take 1 tablet by mouth once daily valsartan (Diovan) 80 MG tablet Indications: 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 Take 1 tablet (80 mg) by mouth Daily 90 tablet 10/20/2024 03/17/2025 Discontinued (Reorder) Completed/Discontinued Medications Medication Drug Class(es) Dates Sig (Normalized) Sig (Original) Bevacizumab solution prefilled syringe 1.25 mg (20 sources) Start: 04-14-2025 End: 04-14-2025 Bevacizumab solution prefilled syringe 1.25 mg Start: 04-14-2025 End: 04-14-2025 1.25 mg, Intravitreal, Once PRN Procedure, Starting on Thu04/14/25 at 1121, For 1 dose Start: 04-07-2025 End: 04-07-2025 Bevacizumab solution prefill ed syringe 1.25 mg Start: 04-07-2025 End: 04-07-2025 1.25 mg, Intravitreal, Once PRN Procedure, Starting on Thu04/07/25 at 1124, For 1 dose Start: 03-07-2025 End: 03-07-2025 Bevacizumab solution prefill ed syringe 1.25 mg Start: 03-07-2025 End: 03-07-2025 1.25 mg, Intravitreal, Once PRN Procedure, Starting on Thu03/07/25 at 1030, For 1 dose Start: 02-21-2025 End: 02-21-2025 Bevacizumab solution prefill ed syringe 1.25 mg Start: 02-21-2025 End: 02-21-2025 1.25 mg, Intravitreal, Once PRN Procedure, Starting on Thu02/21/25 at 1012, For 1 dose Start: 01-17-2025 End: 01-17-2025 Bevacizumab solution prefill ed syringe 1.25 mg Start: 01-17-2025 End: 01-17-2025 1.25 mg, Intravitreal, Once PRN Procedure, Starting on Thu01/17/25 at 1046, For 1 dose Start: 01-10-2025 End: 01-10-2025 Bevacizumab solution prefill ed syringe 1.25 mg Start: 01-10-2025 End: 01-10-2025 1.25 mg, Intravitreal, Once PRN Procedure, Starting on Thu01/10/25 at 0949, For 1 dose Start: 12-13-2024 End: 12-13-2024 Bevacizumab solution prefill ed syringe 1.25 mg Start: 12-13-2024 End: 12-13-2024 1.25 mg, Intravitreal, Once PRN Procedure, Starting on Thu12/13/24 at 0931, For 1 dose Start: 12-06-2024 End: 12-06-2024 Bevacizumab solution prefill ed syringe 1.25 mg Start: 12-06-2024 End: 12-06-2024 1.25 mg, Intravitreal, Once PRN Procedure, Starting on Thu12/06/24 at 1024, For 1 dose Start: 11-08-2024 End: 11-08-2024 Bevacizumab solution prefill ed syringe 1.25 mg Start: 11-08-2024 End: 11-08-2024 1.25 mg, Intravitreal, Once PRN Procedure, Starting on Thu11/08/24 at 1334, For 1 dose Start: 11-02-2024 End: 11-02-2024 Bevacizumab solution prefill ed syringe 1.25 mg Start: 11-02-2024 End: 11-02-2024 1.25 mg, Intravitreal, Once PRN Procedure, Starting on Thu11/02/24 at 0910, For 1 dose Start: 10-11-2024 End: 10-11-2024 Bevacizumab solution prefill ed syringe 1.25 mg Start: 10-11-2024 End: 10-11-2024 1.25 mg, Intravitreal, Once PRN Procedure, Starting on Thu10/11/24 at 0953, For 1 dose Start: 09-27-2024 End: 09-27-2024 Bevacizumab solution prefill ed syringe 1.25 mg Start: 09-27-2024 End: 09-27-2024 1.25 mg, Intravitreal, Once PRN Procedure, Starting on Thu09/27/24 at 0832, For 1 dose Continuous Blood Gluc Receiv er (FreeStyle Fabian 2 [place]) device (7 sources) Start: 12-02-2023 End: 07-13-2024 Continuous Blood Gluc Receiv er (FreeStyle Fabian 2 [place]) device Indications: Type 2 diabetes mellitus without complication, without long-term current use of insulin ([facility]) 1 each Daily 1 each 12/02/2023 07/13/2024 Discontinued (Med list cleanup) Start: 12-02-2023 End: 12-01-2024 Continuous Blood Gluc Receiv er (FreeStyle Fabian 2 [place]) device Indications: Type 2 diabetes mellitus without complication, without long-term current use of insulin ([facility]) 1 each Daily 1 each 12/02/2023 12/01/2024 Active prednisoLONE acetate 10 mg/ml ophthalmic suspension (19 sources) Corticosteroid Start: 08-05-2024 End: 10-20-2024 prednisoLONE acetate (Pred-Forte) 1 % ophthalmic suspension Indications: Cystoid macular edema of both eyes , Moderate nonproliferative diabetic retinopathy of both eyes with macular edema associated with type 2 diabetes mellitus (CMS/HCC) Administer 1 drop into both eyes in the morning and 1 drop at noon and 1 drop in the evening and 1 drop before bedtime. 5 mL 3 08/15/2024 10/20/2024 Discontinued (Discontinued by another clinician) Start: 06-23-2024 End: 07-07-2024 prednisoLONE acetate (Pred-F orte) 1 % ophthalmic [...] Active rosuvastatin calcium 20 mg oral tablet (20 sources) HMG-CoA Reductase Inhibitor Start: 12-24-2021 End: 08-19-2025 take 1 tablet by mouth once daily rosuvastatin (Crestor) 20 MG tablet Indications: Hyperlipidemia, unspecified hyperlipidemia type Take 1 tablet (20 mg) by mouth Daily 90 tablet 10/20/2024 04/14/2025 Discontinued (Reorder) Problems Active Problems Problem Classification Problem Date Documented Date Episodic/Chronic Administrative/social admission (2 sources) Patient encounter status; Translations: [Encounter for blood-alcohol and blood-drug test] 11-24-2024 Episodic Cardiac dysrhythmias (20 sources) Paroxysmal ventricular tachycardia; Translations: [Paroxysmal ventricular tachycardia] Onset: 08-28-2023 Resolved: 12-13-2021 08-28-2023 Chronic Cataract (20 sources) Bilateral age-related nuclear cataracts; Translations: [Age-related nuclear cataract, bilateral] Onset: 11-10-2023 11-10-2023 Chronic Chronic kidney disease (20 sources) Chronic kidney disease stage 3; Translations: [Chronic kidney disease (CKD) stage G3a/A1, moderately decreased glomerular filtration rate (GFR) between 45-59 mL/min/1.73 square meter and albuminuria creatinine ratio less than 30 mg/g (H* (CMS/HCC)] Onset: 10-20-2024 10-20-2024 Chronic Coronary atherosclerosis and other heart disease (20 sources) Triple vessel disease of the heart ; Translations: [Coronary atherosclerosis of unspecified type of vessel, ambler or graft] Onset: 11-21-2022 Chronic Comment on above: Cardiac cath November 30 showed occlusion of the RCA and left circumflex with 50-70% LAD stenosis; Diabetes mellitus with complications (20 sources) Type 2 diabetes mellitus with hyperglycemia; Translations: [Type 2 diabetes mellitus with moderate nonproliferative diabetic retinopathy without macular edema, bilateral] Onset: 06-18-2022 Resolved: 02-22-2025 Chronic Diabetes mellitus without complication (20 sources) Diabetes mellitus; Translations: [Diabetes mellitus without mention of complication, type II or unspecified type, not stated as uncontrolled] Onset: 11-19-2022 Chronic Disorders of lipid metabolism (20 sources) Hyperlipidemia; Translations: [Other and unspecified hyperlipidemia] Onset: 11-21-2022 10-01-2023 Chronic Essential hypertension (20 sources) Essential hypertension; Translations: [Essential (primary) hypertension] Onset: 09-02-2023 09-02-2023 Chronic Other circulatory disease (2 sources) History of cardiomyopathy; Translations: [Other postprocedural status] Episodic Other nutritional; endocrine; and metabolic disorders (6 sources) Obesity; Translations: [Obesity, unspecified] Chronic Other nutritional; endocrine; and metabolic disorders (4 sources) Body mass index 30+ - obesity; Translations: [Body mass index (BMI) 35.0-35.9, adult] Onset: 08-19-2024 08-19-2024 Chronic Other nutritional; endocrine; and metabolic disorders (2 sources) Body mass index (BMI) 36.0-36.9, adult; Translations: [Body mass index (BMI) 36.0-36.9, adult] Onset: 04-10-2025 Chronic Other nutritional; endocrine; and metabolic disorders (2 sources) Body mass index (BMI) 35.0-35.9, adult; Translations: [Body mass index (BMI) 35.0-35.9, adult] Onset: 08-19-2024 Chronic Charla-; endo-; and myocarditis; cardiomyopathy (except that caused by tuberculosis or sexually transmitted disease) (20 sources) Cardiomyopathy; Translations: [Other primary cardiomyopathies] Onset: 12-26-2021 10-01-2023 Chronic Peripheral and visceral atherosclerosis (4 sources) Peripheral vascular disease, unspecified; Translations: [PERIPHERAL VASCULAR DISEASE UNS] Onset: 06-23-2022 Chronic Residual codes; unclassified (6 sources) Never smoked any substance; Translations: [Other specified health status] Onset: 10-01-2023 4 Episodic Residual codes; unclassified (2 sources) Other specified health status; Translations: [Other specified health status] Onset: 10-01-2023 Episodic Retinal detachments; defects; vascular occlusion; and retinopathy (20 sources) Bilateral cystoid macular edema of retinas; Translations: [Cystoid macular degeneration, bilateral] Onset: 08-05-2024 08-05-2024 Chronic Screening and history of mental health and substance abuse codes (6 sources) Ex-smoker; Translations: [Personal history of tobacco use] Episodic Comment on above: QUIT IN 1999; Past or Other Problems Problem Classification Problem Date Documented Date Episodic/Chronic Diabetes mellitus without complication (20 sources) Hyperglycemia; Translations: [Hyperglycemia, unspecified] Onset: 08-28-2023 Resolved: 02-22-2025 08-28-2023 Episodic Other lower respiratory disease (5 sources) Snoring; Translations: [Snoring] Onset: 08-19-2024 08-19-2024 Episodic Other lower respiratory disease (1 source) Snoring; Translations: [Snoring] Onset: 08-19-2024 Episodic Other screening for suspected conditions (not mental disorders or infectious disease) (20 sources) Cardiovascular stress test abnormal; Translations: [Other nonspecific abnormal results of function study of cardiovascular system] Onset: 12-26-2021 09-09-2023 Episodic Unclassified (3 sources) Onset: 10-01-2023 Resolved: 08-19-2024 10-01-2023 Results Test Name Value Interpretation Reference Range Facility Left eye Ophthalmologic gatito tmenton 04-14-2025 [facility] Radiology Study observation (narrative) [facility] Intravitreal Injection, Phar macologic Agent - OD - Right Eyeon 04-07-2025 [facility] Radiology Study observation (narrative) [facility] Optical coherence tomography study reporton 04-07-2025 [facility] Radiology Study observation (narrative) [facility] US RENAL BIon 03-16-[address] [address] Ultrasound Report Signed Patient: GIAN SANDOVAL MR#: [id number] : 1960 Acct:[id number] Age/Sex: 64 / M ADM Date: 03/15/25 Loc: US Attending Dr: Francisca J Aichholz BALLISTICS EXPERT Ordering Physician: Francisca Quintana NP Date of Service: 03/15/25 Procedure(s): US renal BI Accession Number(s): [id number] cc: Francisca Quintana NP [facility] [place] [id number] Patient Name: GIAN SANDOVAL MRN: [facility]:[id number] date: 1960 Sex: M Assigned Patient Location: US Current Patient Location: Accession/Order Number: [id number] Exam Date: 03/16/2025 08:16 Report Date: 03/16/2025 08:18 At the request of: FRANCISCA QUINTANA NP Procedure: US renal BI BILATERAL RENAL AND BLADDER ULTRASOUND CLINICAL HISTORY: CKD STAGE 3B N18.32 COMPARISON: None Estimation of renal size is approximately 11.6 cm on the right and 11.8 cm on the left. There are no shadowing calculi or hydronephrosis. No renal mass lesions were imaged. There is no perinephric fluid. The urinary bladder is partially distended with a volume of 514 mL. No contour or intraluminal abnormalities are seen. US/US renal BI IMPRESSION: NO OBSTRUCTIVE UROPATHY. Impression dictated by: Maryam Patino M.D. 03/16/2025 8:18 AM Dictation Location: [place] [address] Electronically authenticated by: [id number] Y Date: 03/16/2025 08:18 Dictated By: Maryam Patino M.D. Signed By: 03/16/25819 DD/ 7 TD/TT: [employer] Blind [employer]her: [facility] Radiology, Radiologi MD lena - 03/16/2025 [place] [address] Ultrasound Report Signed Patient: GIAN SANDOVAL MR#: [id number] : 1960 Acct:[id number] Age/Sex: 64 / M ADM Date: 03/15/25 Loc: US Attending Dr: Francisca Quintana NP Ordering Physician: Francisca Quintana NP Date of Service: 03/15/25 Procedure(s): US renal BI Accession Number(s): [id number] cc: Francisca Quintana NP [place] [id number] Patient Name: GIAN SANDOVAL MRN: [id number] date: 1960 Sex: M Assigned Patient Location: US Current Patient Location: Accession/Order Number: [id number] Exam Date: 03/16/2025 08:16 Report Date: 03/16/2025 08:18 At the request of: FRANCISCA QUINTANA NP Procedure: US renal BI BILATERAL RENAL AND BLADDER ULTRASOUND CLINICAL HISTORY: CKD STAGE 3B N18.32 COMPARISON: None Estimation of renal size is approximately 11.6 cm on the right and 11.8 cm on the left. There are no shadowing calculi or hydronephrosis. No renal mass lesions were imaged. There is no perinephric fluid. The urinary bladder is partially distended with a volume of 514 mL. No contour or intraluminal abnormalities are seen. US/US renal BI IMPRESSION: NO OBSTRUCTIVE UROPATHY. Impression dictated by: Maryam Patino M.D. 03/16/2025 8:18 AM Dictation Location: [place] [address] Electronically authenticated by: [id number] Y Date: 03/16/2025 08:18 Dictated By: Maryam Patino M.D. Signed By: 03/16/25819 DD/ 7 TD/TT: Venetian Blind Washer: [facility] Radiology Study observation (narrative) [facility] RENAL BIOrdered By: [facility] Radiology on 03-16-2025 [facility] Work Phone: Left eye Ophthalmologic gatito tmenton 03-07-2025 [facility] Radiology Study observation (narrative) [facility] HbA1c (Bld) [Mass fraction]o n 02-22-2025 Interpretation and review of laboratory results Abnormal [facility] Laboratory - Hematology and Cell countson 02-22-2025 HbA1c (Bld) [Mass fraction] 7.5 % [facility] Intravitreal Injection, Phar macologic Agent - OD - Right Eyeon 02-21-2025 [facility] Radiology Study observation (narrative) [facility] Optical coherence tomography study reporton 02-21-2025 [facility] Radiology Study observation (narrative) [facility] ALL BASIC METABOLIC PANELon 02-20-2025 Anion gap [Moles/Vol] 12.1 mmol/L [facility] Calcium [Mass/Vol] 9.1 mg/dL 8.5 - 10. 1 mg/dL [facility] Chloride [Moles/Vol] 105 mmol/L 98 - 10 7 mmol/L [facility] CO2 [Moles/Vol] 28.2 mmol/L 21.0 - 32.0 mmol/L [facility] Creatinine [Mass/Vol] 1.82 mg/dL High 0.70 - 1.30 mg/dL [facility] GFR/1.73 sq M.predicted CKD-EPI (S/P/Bld) [Vol rate/Area] 45 Low >=60 mL/min/1.73 m 2 [facility] Glucose [Mass/Vol] 82 mg/dL 74 - 106 mg/dL [facility] Interpretation and review of laboratory results Abnormal [facility] Potassium [Moles/Vol] 4.3 mmol/L 3.5 - 5.1 mmol/L [facility] Sodium [Moles/Vol] 141 mmol/L 136 - 145 mmol/L [facility] TBH EGFR-NON AF SOMALI 37 Low >=60 mL/min/1.73 m 2 [facility] Urea nitrogen [Mass/Vol] 34 mg/dL High 7.0 - 18.0 mg/dL [facility] Urea nitrogen/Creatinine [Mass ratio] 18.7 mg/mg [facility] Left eye Ophthalmologic gatito tmenton 01-17-2025 [facility] Radiology Study observation (narrative) [facility] Intravitreal Injection, Phar macologic Agent - OD - Right Eyeon 01-10-2025 [facility] Radiology Study observation (narrative) [facility] Optical coherence tomography study reporton 01-10-2025 [facility] Radiology Study observation (narrative) [facility] Left eye Ophthalmologic gatito tmenton 12-13-2024 [facility] Radiology Study observation (narrative) [facility] Intravitreal Injection, Phar macologic Agent - OD - Right Eyeon 12-06-2024 [facility] Radiology Study observation (narrative) [facility] Optical coherence tomography study reporton 12-06-2024 [facility] Radiology Study observation (narrative) [facility] Left eye Ophthalmologic gatito tmenton 11-08-2024 [facility] Radiology Study observation (narrative) [facility] Intravitreal Injection, Phar macologic Agent - OD - Right Eyeon 11-02-2024 [facility] Radiology Study observation (narrative) [facility] Optical coherence tomography study reporton 11-02-2024 [facility] Radiology Study observation (narrative) [facility] Left eye Ophthalmologic gatito tmenton 10-11-2024 [facility] Radiology Study observation (narrative) [facility] ALL CBC WITH AUTO DIFFon BASOPHILS ABSOLUTE AUTO 0 [facility] Basophils/100 WBC (Bld) 0.3 % 0.2 - 2.0 % [facility] Eosinophils/100 WBC (Bld) 2.7 % 0.9 - 7.0 % [facility] Erythrocyte distribution width (RBC) [Ratio] 12.9 % 11.0 - 15.0 % [facility] Hematocrit (Bld) [Volume fraction] 45.4 % 42.0 - 54.0 % [facility] Hemoglobin (Bld) [Mass/Vol] 14.7 g/dL 14.0 - 18.0 g/dL [facility] IMMATURE GRANULOCYTES ABS AUTO 0.02 [facility] Immature granulocytes/100 WBC (Bld) 0.2 % 0.0 - 0.5 % [facility] Interpretation and review of laboratory results Abnormal [facility] LYMPHOCYTES ABSOLUTE AUTO 1.6 [facility] Lymphocytes/100 WBC (Bld) 18.8 % Low 20.5 - 60.0 % [facility] MCH (RBC) [Entitic mass] 28.1 pg 25.9 - 34.0 pg [facility] MCHC (RBC) [Mass/Vol] 32.4 g/dL 29.9 - 35.2 g/dL [facility] MCV (RBC) [Entitic vol] 86.6 fL 80.0 - 94.0 fL [facility] MONOCYTES ABSOLUTE AUTO 0.6 [facility] Monocytes/100 WBC (Bld) 6.4 % 1.7 - 12.0 % [facility] NEUTROPHILS ABSOLUTE AUTO 6.2 [facility] Neutrophils/100 WBC (Bld) 71.6 % 43.0 - 75.0 % [facility] Platelet mean volume (Bld) [Entitic vol] 11.6 fL 9.5 - 13.5 fL [facility] EO # 0.2 [facility] PLT 159 [facility] RBC 5.24 [facility] WBC 8.6 [facility] Intravitreal Injection, Phar macologic Agent - OD - Right Eyeon 09-27-2024 [facility] Radiology Study observation (narrative) [facility] Optical coherence tomography study reporton 09-20-2024 [facility] Radiology Study observation (narrative) [facility] Optical coherence tomography study reporton 08-05-2024 [facility] Radiology Study observation (narrative) [facility] Optical coherence tomography study reporton 05-25-2024 [facility] Right Eye Quality was poor. Left Eye Quality was poor. [facility] Optical coherence tomography study reporton 05-24-2024 Radiology Study observation (narrative) [facility] US Eye+Orbit - bilateralon 0 05-24-2024 Diagnosis: Cataract both eyes (OU) Testing Indication: Performed for preop measurements in the determination of an intraocular lens (IOL) for both eyes (OU) Test Reliability: Good quality both eyes (OU) Interpretation: Good measurements for intraocular lens (IOL) calculation purposes. Calculation made for both eyes (OU). [facility] Radiology Study observation (narrative) [facility] MICROALB CREAT RATIO RAN DOMon 10-06-2023 CREATININE URINE RANDOM 145.39 mg/dL 20.00 - 300.00 mg/dL [facility] Interpretation and review of laboratory results Abnormal [facility] MICROALBUM CREATININE RATIO UR 38.5 mg/g High 0.0 - 29.9 mg/g [facility] Comment on above: NO MICROALBUMINURIA 0-29 MG/G CLINICAL MICROALBUMINURIA 30-300 MG/G MACROALBUMINURIA >300 MG/G MICROALBUMIN URINE RANDOM 5.6 mg/dL NINF - 30.0 mg/dL [facility] SGOTon 01-01-2023 AST [Catalytic activity/Vol] 23 U/L Normal 15-37 [facility] Comment on above: Performed By: #### A LT, AST #### [facility] [address] [place] [address] Dr. [facility] ALT [Catalytic activity/Vol] 46 U/L Normal 16-63 [facility] Comment on above: Performed By: #### A LT, AST #### [facility] [address] [place] [address] Dr. Jeremías Gaffney CBC AUTO DIFFon 11-19-2022 BASO # 0.0 103/ul Normal 0.0-0.1 [facility] Comment on above: Performed By: #### C BC #### [facility] [address] [place] [address] Dr. Jeremías Gaffney Basophils/100 WBC (Bld) 0.5 % Normal 0.2-2.0 [facility] Comment on above: Performed By: #### C BC #### [facility] [address] [place] [address] Dr. Jeremías Gaffney EO # 0.3 103/ul Normal 0.0-0.7 [facility] Comment on above: Performed By: #### C BC #### [facility] [address] [place] [address] Dr. Jeremías Gaffney Eosinophils/100 WBC (Bld) 3.2 % Normal 0.9-7.0 [facility] Comment on above: Performed By: #### C BC #### [facility] [address] [place] [address] Dr. Jeremías Gaffney Erythrocyte distribution width (RBC) [Ratio] 12.6 % Normal 11.0-15.0 [facility] Comment on above: Performed By: #### C BC #### [facility] [address] [place] [address] Dr. Jeremías Gaffney Hematocrit (Bld) [Volume fraction] 44.5 % Normal 42.0-54.0 [facility] Comment on above: Performed By: #### C BC #### [facility] [address] [place] [address] Dr. Jeremías Gaffney Hemoglobin (Bld) [Mass/Vol] 14.4 g/dL Normal 14.0-18.0 [facility] Comment on above: Performed By: #### C BC #### [facility] [address] [place] [address] Dr. Jeremías Gaffney IG # 0.02 10e3/ul Normal 0.00-0.03 [facility] Comment on above: Performed By: #### C BC #### [facility] [address] [place] [address] Dr. Jeremías Gaffney IG % 0.2 % Normal 0.0-0.5 [facility] Comment on above: Performed By: #### C BC #### [facility] [address] [place] [address] Dr. Jeremías Gaffney LYMPH # 1.7 103/ul Normal 1.2-3.8 [facility] Comment on above: Performed By: #### C BC #### [facility] [address] [place] [address] Dr. Jeremías Gaffney Lymphocytes/100 WBC (Bld) 19.7 % Critically low 20.5-60.0 [facility] Comment on above: Performed By: #### C BC #### [facility] [address] [place] [address] Dr. Jeremías Gaffney MANUAL DIFF REQ NO Normal [facility] Comment on above: Performed By: #### C BC #### [facility] [address] [place] [address] Dr. Jeremías Gaffney MCH (RBC) [Entitic mass] 27.7 pg Normal 25.9-34.0 [facility] Comment on above: Performed By: #### C BC #### [facility] [address] [place] [address] Dr. Jeremías Gaffney MCHC (RBC) [Mass/Vol] 32.4 g/dL Normal 29.9-35.2 [facility] Comment on above: Performed By: #### C BC #### [facility] [address] [place] [address] Dr. Jeremías Gaffney MCV (RBC) [Entitic vol] 85.7 fL Normal 80.0-94.0 [facility] Comment on above: Performed By: #### C BC #### [facility] [address] [place] [address] Dr. Jeremías Gaffney MONO # 0.5 103/ul Normal 0.3-0.8 [facility] Comment on above: Performed By: #### C BC #### [facility] [address] [address] [address] Jeremías Gaffney Monocytes/100 WBC (Bld) 5.6 % Normal 1.7-12.0 [facility] Comment on above: Performed By: #### C BC #### [facility] [address] [address] [address] Jeremías Gaffney NEUT # 6.1 103/ul Normal 1.4-6.5 [facility] Comment on above: Performed By: #### C BC #### [facility] [address] [place] [address] Dr. Jeremías Gaffney Neutrophils/100 WBC (Bld) 70.8 % Normal 43.0-75.0 [facility] Comment on above: Performed By: #### C BC #### [facility] [address] [place] [address] Dr. Jeremías Gaffney Platelet mean volume (Bld) [Entitic vol] 12.3 fL Normal 9.5-13.5 [facility] Comment on above: Performed By: #### C BC #### [facility] [address] [place] [address] Dr. Jeremías Gaffney PLT 135 103/ul Critically low 150-450 [facility] Comment on above: Performed By: #### C BC #### [facility] [address] [place] [address] Dr. Jeremías Gaffney RBC 5.19 106/ul Normal 4.70-6.10 [facility] Comment on above: Performed By: #### C BC #### [facility] [address] [place] [address] Dr. Jeremías Gaffney WBC 8.6 103/ul Normal 4.0-11.0 [facility] Comment on above: Performed By: #### C BC #### [facility] [address] [place] [address] Dr. Jeremías Gaffney GLYCOHEMOGLOBIN A1Con 2022 ADA RECOMMENDATION SEE BELOW Normal [facility] Comment on above: Result Comment: ADA RECOMMENDED LIMIT 4.0 - 6.0 ADA THERAPEUTIC TARGET < 7.0 ACTION SUGGESTED > 7.0 Performed By: #### A LT, AST #### [facility] [address] [place] [address] Dr. Jeremías Gaffney Glucose [Mass/Vol] 137 mg/dL Normal [facility] Comment on above: Performed By: #### A LT, AST #### [facility] [address] [place] [address] Dr. Jeremías Gaffney HbA1c (Bld) [Mass fraction] 6.4 % Critically high 4.5-6.2 [facility] Comment on above: Performed By: #### A LT, AST #### [facility] [address] [place] [address] Dr. Jeremías Gaffney LIPID PROFILEon 11-19-2022 CHOL-HDL RATIO NORM SEE BELOW Normal [facility] Comment on above: Result Comment: 3.3 - 4.4 LOW RISK 4.4 - 7.1 AVERAGE RISK 7.1 - 11.0 MODERATE RISK >11.0 HIGH RISK Performed By: #### A LT, AST #### [facility] [address] [place] [address] Dr. Jeremías Gaffney Cholesterol [Mass/Vol] 140 mg/dL Normal <=200 [facility] Comment on above: Performed By: #### A LT, AST #### [facility] [address] [place] [address] Dr. Jeremías Gaffney Cholesterol in HDL [Mass/Vol] 53 mg/dL Normal 40-60 [facility] Comment on above: Performed By: #### A LT, AST #### [facility] [address] [address] [address] Jeremías Gaffney Cholesterol in LDL [Mass/Vol] 60.0 mg/dL Normal [facility] Comment on above: Performed By: #### A LT, AST #### [facility] [address] [place] [address] Dr. Jeremías Gaffney Cholesterol.total/Ch olesterol in HDL [Mass ratio] 2.6 {ratio} Normal [facility] Comment on above: Performed By: #### A LT, AST #### [facility] [address] [address] [address] Jeremías Gaffney HDL NORMAL > or = 60 mg/dl - LO W CARDIOVASCULAR RISK <40 mg/dl - HIGH CARDIOVASCULAR RISK Normal [facility] Comment on above: Performed By: #### A LT, AST #### [facility] [address] [address] [address] Jeremías Gaffney LDL CALC NORMAL SEE BELOW Normal [facility] Comment on above: Result Comment: <100 mg/dl OPTIMAL 100 - 129 mg/dl NEAR OR ABOVE OPTIMAL 130 - 159 mg/dl BORDERLINE HIGH 160 - 189 mg/dl HIGH >190 mg/dl VERY HIGH Performed By: #### A LT, AST #### [facility] [address] [place] [address] Dr. Jeremías Gaffney Triglyceride [Mass/Vol] 135 mg/dL Normal <=150 [facility] Comment on above: Performed By: #### A LT, AST #### [facility] [address] [place] [address] Dr. Jeremías Gaffney VLDL CALC 27.0 mg/dL Normal [facility] Comment on above: Performed By: #### A LT, AST #### [facility] [address] [place] [address] Dr. Jeremías Gaffney PROF CHEM 8 (BAS METB)on Anion gap [Moles/Vol] 12.0 mmol/L Normal [facility] Comment on above: Performed By: #### A LT, AST, BMP, LIPID #### [facility] [address] [address] [address] Jeremías Gaffney Calcium [Mass/Vol] 9.4 mg/dL Normal 8.5-10.1 [facility] Comment on above: Performed By: #### A LT, AST, BMP, LIPID #### [facility] [address] [address] [address] Jeremías Gaffney Chloride [Moles/Vol] 105 mmol/L Normal 98-107 [facility] Comment on above: Performed By: #### A LT, AST, BMP, LIPID #### [facility] [address] [address] [address] Jeremías Gaffney CO2 [Moles/Vol] 29.8 mmol/L Normal 21.0-32.0 [facility] Comment on above: Performed By: #### A LT, AST, BMP, LIPID #### [facility] [address] [address] [address] Jeremías Gaffney Creatinine [Mass/Vol] 0.77 mg/dL Normal 0.70-1.30 [facility] Comment on above: Performed By: #### A LT, AST, BMP, LIPID #### [facility] [address] [address] [address] Jeremías Gaffney EGFR-AF SOMALI >60 Normal >=60 [facility] Comment on above: Performed By: #### A LT, AST, BMP, LIPID #### [facility] [address] [place] [address] Dr. Jeremías Gaffney EGFR-NON AF SOMALI >60 Normal >=60 [facility] Comment on above: Performed By: #### A LT, AST, BMP, LIPID #### [facility] [address] [address] [address] Jeremías Gaffney Glucose [Mass/Vol] 132 mg/dL Critically high 74-106 [facility] Comment on above: Performed By: #### A LT, AST, BMP, LIPID #### [facility] [address] [address] [address] Jeremías Gaffney Potassium [Moles/Vol] 4.8 mmol/L Normal 3.5-5.1 [facility] Comment on above: Performed By: #### A LT, AST, BMP, LIPID #### [facility] [address] [address] [address] Jeremías Gaffney Sodium [Moles/Vol] 142 mmol/L Normal 136-145 [facility] Comment on above: Performed By: #### A LT, AST, BMP, LIPID #### [facility] [address] [address] [address] Jeremías Gaffney Urea nitrogen [Mass/Vol] 20.0 mg/dL Critically high 7.0-18.0 [facility] Comment on above: Performed By: #### A LT, AST, BMP, LIPID #### [facility] [address] [address] [address] Jeremías Gaffney Urea nitrogen/Creatinine [Mass ratio] 26.0 mg/mg Normal [facility] Comment on above: Performed By: #### A LT, AST, BMP, LIPID #### [facility] [address] [address] [address] Jeremías Gaffney SGOTon 11-19-2022 AST [Catalytic activity/Vol] 49 U/L Critically high 15-37 [facility] Comment on above: Performed By: #### A LT, AST, BMP, LIPID #### [facility] [address] [address] [address] Jeremías Gaffney SGPTon 11-19-2022 ALT [Catalytic activity/Vol] 81 U/L Critically high 16-63 [facility] Comment on above: Performed By: #### A LT, AST #### [facility] [address] [address] [address] Jeremías Gaffney Office Visit (Cardiology)on 11-05-2022 [...] Follow up in 9 months Chief Complaint GIAN SANDOVAL is being seen for a 6 month follow-up of. Patient is in the office for follow-up for CAD. Last November 2021 he underwent diagnostic cardiac catheterization which revealed occlusion of the mid RCA and left circumflex with mature [id number] and left to left collateral network. Ejection [...] functional class II, he is currently on beta-evin therapy but valsartan will be added, will [...] Recorded: 05Nov2022 10:44AM Heart Rate76, L Radial Jtrdxost227, RUE, Sitting [id number], RUE, Sitting Height5 ft 5 in Gjtlic870 lb BMI Ypesnjgauy79.95 kg/m2 BSA Calculated1.94 To (more content not included)... Normal [employer] Tobacco Screening.on 023 Adult depression screening assessment No [facility] [place] [address] DO Work Phone: Fall risk assessment a) No falls within the last year [facility] [place] [address] DO Work Phone: Tobacco use status [facility] b) No [facility] [place] [address] DO Work Phone: US ARTERY [...] GARRETT [place] Date: 2022-06-23 20:08 Normal [facility] CBC AUTO DIFFon 06-18-2022 BASO # 0.1 103/ul Normal 0.0-0.1 [facility] Comment on above: Performed By: #### C BC #### [facility] [address] [address] [address] Jeremías Gaffney Basophils/100 WBC (Bld) 0.5 % Normal 0.2-2.0 [facility] Comment on above: Performed By: #### C BC #### [facility] [address] [address] [address] Jeremías Gaffney EO # 0.2 103/ul Normal 0.0-0.7 [facility] Comment on above: Performed By: #### C BC #### [facility] [address] [address] [address] Jeremías Gaffney Eosinophils/100 WBC (Bld) 1.5 % Normal 0.9-7.0 [facility] Comment on above: Performed By: #### C BC #### [facility] [address] [place] [address] Dr. Jeremías Gaffney Erythrocyte distribution width (RBC) [Ratio] 13.3 % Normal 11.0-15.0 [facility] Comment on above: Performed By: #### C BC #### [facility] [address] [place] [address] Dr. Jeremías Gaffney Hematocrit (Bld) [Volume fraction] 43.2 % Normal 42.0-54.0 [facility] Comment on above: Performed By: #### C BC #### [facility] [address] [place] [address] Dr. Jeremías Gaffney Hemoglobin (Bld) [Mass/Vol] 14.4 g/dL Normal 14.0-18.0 [facility] Comment on above: Performed By: #### C BC #### [facility] [address] [place] [address] Dr. Jeremías Gaffney IG # 0.04 10e3/ul Critically high 0.00-0.[address] [facility] Comment on above: Performed By: #### C BC #### [facility] [address] [place] [address] Dr. Jeremías Gaffney IG % 0.4 % Normal 0.0-0.5 [facility] Comment on above: Performed By: #### C BC #### [facility] [address] [place] [address] Dr. Jeremías Gaffney LYMPH # 1.6 103/ul Normal 1.2-3.8 [facility] Comment on above: Performed By: #### C BC #### [facility] [address] [place] [address] Dr. Jeremías Gaffney Lymphocytes/100 WBC (Bld) 15.0 % Critically low 20.5-60.0 [facility] Comment on above: Performed By: #### C BC #### [facility] [address] [place] [address] Dr. Jeremías Gaffney MANUAL DIFF REQ NO Normal [facility] Comment on above: Performed By: #### C BC #### [facility] [address] [place] [address] Dr. Jeremías Gaffney MCH (RBC) [Entitic mass] 28.7 pg Normal 25.9-34.0 [facility] Comment on above: Performed By: #### C BC #### [facility] [address] [address] [address] Jeremías Gaffney MCHC (RBC) [Mass/Vol] 33.3 g/dL Normal 29.9-35.2 [facility] Comment on above: Performed By: #### C BC #### [facility] [address] [address] [address] Jeremías Gaffney MCV (RBC) [Entitic vol] 86.1 fL Normal 80.0-94.0 [facility] Comment on above: Performed By: #### C BC #### [facility] [address] [place] [address] Dr. Jeremías Gaffney MONO # 0.5 103/ul Normal 0.3-0.8 [facility] Comment on above: Performed By: #### C BC #### [facility] [address] [place] [address] Dr. Jeremías Gaffney Monocytes/100 WBC (Bld) 4.4 % Normal 1.7-12.0 [facility] Comment on above: Performed By: #### C BC #### [facility] [address] [place] [address] Dr. Jeremías Gaffney NEUT # 8.1 103/ul Critically high 1.4-6.5 [facility] Comment on above: Performed By: #### C BC #### [facility] [address] [place] [address] Dr. Jeremías Gaffney Neutrophils/100 WBC (Bld) 78.2 % Critically high 43.0-75.0 [facility] Comment on above: Performed By: #### C BC #### [facility] [address] [place] [address] Dr. Jeremías Gaffney Platelet mean volume (Bld) [Entitic vol] 11.9 fL Normal 9.5-13.5 [facility] Comment on above: Performed By: #### C BC #### [facility] [address] [address] [address] Jeremías Gaffney PLT 161 103/ul Normal 150-450 [facility] Comment on above: Performed By: #### C BC #### [facility] [address] [address] [address] Jeremías Gaffney RBC 5.02 106/ul Normal 4.70-6.10 [facility] Comment on above: Performed By: #### C BC #### [facility] [address] [address] [address] Jeremías Gaffney WBC 10.4 103/ul Normal 4.0-11.0 [facility] Comment on above: Performed By: #### C BC #### [facility] [address] [place] [address] Dr. Jeremías Gaffney GLYCOHEMOGLOBIN A1Con 2021 ADA RECOMMENDATION SEE BELOW Normal [facility] Comment on above: Result Comment: ADA RECOMMENDED LIMIT 4.0 - 6.0 ADA THERAPEUTIC TARGET < 7.0 ACTION SUGGESTED > 7.0 Performed By: #### A 1C #### [facility] [address] [place] [address] Dr. Jeremías Gaffney Glucose [Mass/Vol] 134 mg/dL Normal [facility] Comment on above: Performed By: #### A 1C #### [facility] [address] [place] [address] Dr. Jeremías Gaffney HbA1c (Bld) [Mass fraction] 6.3 % Critically high 4.5-6.2 [facility] Comment on above: Performed By: #### A 1C #### [facility] [address] [place] [address] Dr. Jeremías Gaffney LIPID PROFILEon 06-18-2022 CHOL-HDL RATIO NORM SEE BELOW Normal [facility] Comment on above: Result Comment: 3.3 - 4.4 LOW RISK 4.4 - 7.1 AVERAGE RISK 7.1 - 11.0 MODERATE RISK >11.0 HIGH RISK Performed By: #### C MP, LIPID #### [facility] [address] [place] [address] Dr. Jeremías Gaffney Cholesterol [Mass/Vol] 110 mg/dL Normal <=200 [facility] Comment on above: Performed By: #### C MP, LIPID #### [facility] [address] [address] [address] Jeremías Gaffney Cholesterol in HDL [Mass/Vol] 52 mg/dL Normal 40-60 [facility] Comment on above: Performed By: #### C MP, LIPID #### [facility] [address] [address] [address] Jeremías Gaffney Cholesterol in LDL [Mass/Vol] 29.2 mg/dL Normal [facility] Comment on above: Performed By: #### C MP, LIPID #### [facility] [address] [address] [address] Jeremías Gaffney Cholesterol.total/Ch olesterol in HDL [Mass ratio] 2.1 {ratio} Normal [facility] Comment on above: Performed By: #### C MP, LIPID #### [facility] [address] [address] [address] Jeremías Gaffney HDL NORMAL > or = 60 mg/dl - LO W CARDIOVASCULAR RISK <40 mg/dl - HIGH CARDIOVASCULAR RISK Normal [facility] Comment on above: Performed By: #### C MP, LIPID #### [facility] [address] [place] [address] Dr. Jeremías Gaffney LDL CALC NORMAL SEE BELOW Normal [facility] Comment on above: Result Comment: <100 mg/dl OPTIMAL 100 - 129 mg/dl NEAR OR ABOVE OPTIMAL 130 - 159 mg/dl BORDERLINE HIGH 160 - 189 mg/dl HIGH >190 mg/dl VERY HIGH Performed By: #### C MP, LIPID #### [facility] [address] [address] [address] Jeremías Gaffney Triglyceride [Mass/Vol] 144 mg/dL Normal <=150 [facility] Comment on above: Performed By: #### C MP, LIPID #### [facility] [address] [place] [address] Dr. Jeremías Gaffney VLDL CALC 28.8 mg/dL Normal [facility] Comment on above: Performed By: #### C MP, LIPID #### [facility] [address] [address] [address] Jeremías Gaffney PROF 14(COMP METB)on 022 Albumin [Mass/Vol] 3.8 g/dL Normal 3.4-5.0 [facility] Comment on above: Performed By: #### C MP, LIPID #### [facility] [address] [place] [address] Dr. Jeremías Gaffney Albumin/Globulin [Mass ratio] 1.0 {ratio} Normal [facility] Comment on above: Performed By: #### C MP, LIPID #### [facility] [address] [place] [address] Dr. Jeremías Gaffney ALP [Catalytic activity/Vol] 70 U/L Normal 46-116 [facility] Comment on above: Performed By: #### C MP, LIPID #### [facility] [address] [place] [address] Dr. Jeremías Gaffney ALT [Catalytic activity/Vol] 40 U/L Normal 16-63 [facility] Comment on above: Performed By: #### C MP, LIPID #### [facility] [address] [place] [address] Dr. Jeremías Gaffney Anion gap [Moles/Vol] 11.9 mmol/L Normal [facility] Comment on above: Performed By: #### C MP, LIPID #### [facility] [address] [place] [address] Dr. Jeremías Gaffney AST [Catalytic activity/Vol] 18 U/L Normal 15-37 [facility] Comment on above: Performed By: #### C MP, LIPID #### [facility] [address] [place] [address] Dr. Jeremías Gaffney Bilirubin [Mass/Vol] 0.7 mg/dL Normal 0.2-1.0 [facility] Comment on above: Performed By: #### C MP, LIPID #### [facility] [address] [place] [address] Dr. Jeremías Gaffney Calcium [Mass/Vol] 9.0 mg/dL Normal 8.5-10.1 [facility] Comment on above: Performed By: #### C MP, LIPID #### [facility] [address] [address] [address] Jeremías Gaffney Chloride [Moles/Vol] 103 mmol/L Normal 98-107 [facility] Comment on above: Performed By: #### C MP, LIPID #### [facility] [address] [address] [address] Jeremías Gaffney CO2 [Moles/Vol] 28.4 mmol/L Normal 21.0-32.0 [facility] Comment on above: Performed By: #### C MP, LIPID #### [facility] [address] [address] [address] Jeremías Gaffney Creatinine [Mass/Vol] 0.72 mg/dL Normal 0.70-1.30 [facility] Comment on above: Performed By: #### C MP, LIPID #### [facility] [address] [place] [address] Dr. Jeremías Gaffney EGFR-AF SOMALI >60 Normal >=60 [facility] Comment on above: Performed By: #### C MP, LIPID #### [facility] [address] [place] [address] Dr. Jeremías Gaffney EGFR-NON AF SOMALI >60 Normal >=60 [facility] Comment on above: Performed By: #### C MP, LIPID #### [facility] [address] [place] [address] Dr. Jeremías Gaffney Globulin (S) [Mass/Vol] 3.8 g/dL Normal [facility] Comment on above: Performed By: #### C MP, LIPID #### [facility] [address] [place] [address] Dr. Jeremías Gaffney Glucose [Mass/Vol] 106 mg/dL Normal 74-106 [facility] Comment on above: Performed By: #### C MP, LIPID #### [facility] [address] [address] [address] Jeremías Gaffney Potassium [Moles/Vol] 4.3 mmol/L Normal 3.5-5.1 [facility] Comment on above: Performed By: #### C MP, LIPID #### [facility] [address] [place] [address] Dr. Jeremías Gaffney Protein [Mass/Vol] 7.6 g/dL Normal 6.4-8.2 [facility] Comment on above: Performed By: #### C MP, LIPID #### [facility] [address] [address] [address] Jeremías Gaffney Sodium [Moles/Vol] 139 mmol/L Normal 136-145 [facility] Comment on above: Performed By: #### C MP, LIPID #### [facility] [address] [address] [address] Jeremías Gaffney Urea nitrogen [Mass/Vol] 19.0 mg/dL Critically high 7.0-18.0 [facility] Comment on above: Performed By: #### C MP, LIPID #### [facility] [address] [address] [address] Jeremías Gaffney Urea nitrogen/Creatinine [Mass ratio] 26.4 mg/mg Normal [facility] Comment on above: Performed By: #### C MP, LIPID #### [facility] [address] [address] [address] Jeremías Gaffney MRI Cardiac w/wo contrast fo r Morph/Funct and Valve Dzon 01-30-2022 MRI Cardiac w/wo contrast for Morph/Funct and Valve Dz Normal -[facility] [address] DO Work Phone: [phone] MRI CARDIAC RESONANCE YARA GING FOR VELOCITY FLOW MAPPINGon 01-30-2022 MRI CARDIAC RESONANCE IMAGING FOR VELOCITY FLOW MAPPING [facility] CMR Report Name: RAYMONDGIAN : 1960 Scan Date: 2022-01-30 11:10:00 Electronically signed by SHARAN THOMAS 10:03:32 GENERAL INFORMATION HEIGHT: 66.00 in (167.64 cm) WEIGHT: 187.00 lbs (84.82 kgs) BSA: 1.94 m^2 BP: 110 / 72 mmHg BASELINE HR: 73 BPM SCAN LOCATION: [facility] REFERRING PHYSICIAN: YOHAN SADLER ATTENDING PHYSICIAN: YOHAN SADLER TECHNOLOGIST: RAZA SORIA ACCESSION NUMBER: [id number] CPT CODES: 47481 ICD10 CODES: I42.9, [ , ]I25.10 SUMMARY [...] . Hyperenhancement (more content not included)... Normal [facility] MRI CARDIAC W/WO CONTRAST FOR MORPH/FUNCT AND VALVE [facility] 01-30-2022 MRI CARDIAC W/WO CONTRAST FOR MORPH/FUNCT AND VALVE [facility] CMR Report Name: RAYMOND GIAN SAUCEDO: 1960 Scan Date: 2022-01-30 11:10:00 Electronically signed by SHARAN THOMAS 10:03:32 GENERAL INFORMATION HEIGHT: 66.00 in (167.64 cm) WEIGHT: 187.00 lbs (84.82 kgs) BSA: 1.94 m^2 BP: 110 / 72 mmHg BASELINE HR: 73 BPM SCAN LOCATION: [facility] REFERRING PHYSICIAN: YOHAN SADLER ATTENDING PHYSICIAN: YOHAN SADLER TECHNOLOGIST: RAZA SORIA ACCESSION NUMBER: [id number] CPT CODES: 68768 ICD10 CODES: I42.9, [ , ]I25.10 SUMMARY [...] . Hyperenhancement (more content not included)... Normal [facility] No Panel Informationon 12-26 96\S\96 Normal -[facility] [address] DO Work Phone: Comment on above: Random Glucose Refer ence Range is dependent on time and content of last meal. Glucose of more than 200 mg/dL in a nonstressed, ambulatory subject supports the diagnosis of Diabetes Mellitus.PERFORMED BY:[id number] ESCOBEDOBERNYSACRED HE[place], [place] [id number] MEDICAL DIRECTORSHILOH SPRINGER M.D. Activated partial thrombopla stin time (aPTT) in platelet poor plasma by coagulation aOrdered By: Yohan Sadler on 12-24-2021 aPTT Coag (PPP) [Time] 35.2 s 25.1-36.5 [facility] Basophils Auto (Bld) [#/Vol] Ordered By: Yohan Sadler on 12-24-2021 Basophils (Bld) [#/Vol] 0.0 10*3/uL 0.0-0.2 [facility] Basophils/100 WBC Auto (Bld) Ordered By: Yohan Sadler on 12-24-2021 Basophils/100 WBC (Bld) 0.3 % [facility] Blood hemoglobin measurement (mass/volume)Ordered By: Yohan Sadler on 12-24-2021 Hemoglobin (Bld) [Mass/Vol] 12.8 g/dL 13.0-17.0 [facility] Blood leukocytes automated c ount (number/volume)Ordered By: Yohan Sadler on 12-24-2021 WBC (Bld) [#/Vol] 12.6 10*3/uL 4.5-11.0 [facility] COVID-19 SOFIAOrdered By: Usman Sadler on 12-24-2021 SARS-CoV+SARS-CoV-2 (COVID-19) Ag IA.rapid Ql (Resp) Negative Negative [facility] Comment on above: This is a duplicate Diana SARS Antigen (THEODORE) result to be used for statistical tracking purpose only. Cholesterol [Mass/volume] in Serum or PlasmaOrdered By: Yohan Sadler on 12-24-2021 Cholesterol [Mass/Vol] 105 mg/dL 140-200 [facility] Comment on above: Chol less than 200 m g/dl low riskChol 201-239 mg/dl borderline riskChol 240 mg/dl and greater high risk Cholesterol in LDL Calc [Mas s/Vol]Ordered By: Yohan Sadler on 12-24-2021 Cholesterol in LDL [Mass/Vol] 39 mg/dL 0-100 [facility] Comment on above: LDL ATP III CLASSIFI CATIONLDL less than 100 mg/dL OptimalLDL 100-129 mg/dL Near or above optimalLDL 130-159 mg/dL Borderline highLDL 160-189 mg/dL HighLDL greater than 189 mg/dL Very high Cholesterol in VLDL Calc [Ma ss/Vol]Ordered By: Yohan Sadler on 12-24-2021 Cholesterol in VLDL [Mass/Vol] 25 mg/dL [facility] Creatinine and Glomerular fi ltration rate.predicted panel (S/P/Bld)Ordered By: Yohan Sadler on 12-24-2021 Creatinine [Mass/Vol] 0.88 mg/dL 0.64-1.27 [facility] Eosinophils Auto (Bld) [#/Vo l]Ordered By: Yohan Sadler on 12-24-2021 Eosinophils (Bld) [#/Vol] 0.2 10*3/uL 0.0-0.45 [facility] Eosinophils/100 WBC Auto (Bl d)Ordered By: Yohan Sadler on 12-24-2021 Eosinophils/100 WBC (Bld) 1.7 % [facility] Erythrocyte distribution wid th Auto (RBC) [Ratio]Ordered By: Yohan Sadler on 12-24-2021 Erythrocyte distribution width (RBC) [Ratio] 13.2 % 12.0-14.8 [facility] Estimated glomerular filtrat ion rate (GFR) non- AmericanOrdered By: Yohan Sadler on 12-24-2021 GFR/1.73 sq M.predicted among non-blacks MDRD (S/P/Bld) [Vol rate/Area] > 60 mL/Min [facility] Hematocrit Auto (Bld) [Volum e fraction]Ordered By: Yohan Sadler on 12-24-2021 Hematocrit (Bld) [Volume fraction] 37.6 % 38.8-50.0 [facility] Laboratory - Chemistry and C hemistry - challengeon 12-24-2021 Cholesterol [Mass/Vol] 105\S\105 below low threshold 140-200 [facility] 250 DO Work Phone: Comment on above: Chol less than 200 m g/dl low risk Chol 201-239 mg/dl borderline risk Chol 240 mg/dl and greater high risk Cholesterol in LDL [Mass/Vol] 39\S\39 Normal 0-100 [place] [address] DO Work Phone: Comment on above: LDL ATP III CLASSIFI CATION LDL less than 100 mg/dL Optimal LDL 100-129 mg/dL Near or above optimal LDL 130-159 mg/dL Borderline high LDL 160-189 mg/dL High LDL greater than 189 mg/dL Very high Laboratory - CoagulationOrde red By: Yohan Sadler on 12-24-2021 PT Coag (PPP) [Time] 13.2 s 9.0-12.9 [facility] - Hematology and Cell countsOrdered By: Yohan Sadler on 12-24-2021 Nucleated RBC/100 WBC (Bld) [Ratio] 0.0 % 0-0.5 [facility] - Microbiology an d Antimicrobial susceptibilityon 12-24-2021 SARS-CoV-2 (COVID-19) RNA JOSE+probe Ql (Unsp spec) [place] [address] DO Work Phone: Lymphocytes Auto (Bld) [#/Vo l]Ordered By: Yohna Sadler on 12-24-2021 Lymphocytes (Bld) [#/Vol] 1.7 10*3/uL 1.00-4.8 [facility] Lymphocytes/100 WBC Auto (Bl d)Ordered By: Yohan Sadler on 12-24-2021 Lymphocytes/100 WBC (Bld) 13.6 % [facility] MCH Auto (RBC) [Entitic mass ]Ordered By: Yohan Sadler on 12-24-2021 MCH (RBC) [Entitic mass] 28.5 pg 27.5-35.2 [facility] MCHC Auto (RBC) [Mass/Vol]Or dered By: Yohan Sadler on 12-24-2021 MCHC (RBC) [Mass/Vol] 33.9 g/dL 32.5-35.6 [facility] MCV Auto (RBC) [Entitic vol] Ordered By: Yohan Sadler on 12-24-2021 MCV (RBC) [Entitic vol] 84.1 fL 83.5-101 [facility] Monocytes Auto (Bld) [#/Vol] Ordered By: Yohan Sadler on 12-24-2021 Monocytes (Bld) [#/Vol] 0.8 10*3/uL 0.0-0.8 [facility] Monocytes/100 WBC Auto (Bld) Ordered By: Yohan Sadler on 12-24-2021 Monocytes/100 WBC (Bld) 6.7 % [facility] Neutrophils Auto (Bld) [#/Vo l]Ordered By: Yohan Sadler on 12-24-2021 Neutrophils (Bld) [#/Vol] 9.8 10*3/uL 1.8-7.7 [facility] Neutrophils/100 WBC Auto (Bl d)Ordered By: Yohan Sadler on 12-24-2021 Neutrophils/100 WBC (Bld) 77.7 % [facility] No Panel InformationOrdered By: Yohan Sadler on 12-24-2021 Estimated GFR () > 60 mL/Min [facility] Comment on above: GFR estimated refere nce range: According to KDOQI guidelines, <60 ml/min/1.73m2 is sufficient to diagnose a patient with chronic kidney disease. Pharmacy Creatinine Clearance (Chem N/A [facility] SARS Antigen (LFIA) [facility] No Panel Informationon 12-24 35.2\S\35.2 Normal 25.1-36.5 -[facility] [address] DO Work Phone: Comment on above: PERFORMED BY:[address] [address] BEC[address] STSACRED HEART, [place] [id number] MEDICAL DIRECTORSHILOH SPRINGER M.D. 1.2\S\1.[address] [facility] [address] DO Work Phone: [...] valves: 3 - 4.5 13.2\S\13.2 Normal 12.0-14.8 [facility] [place] [address] DO Work Phone: Negative Normal Negative -[facility] [address] DO Work Phone: [phone] Comment on above: This is a duplicate Diana SARS Antigen (THEODORE) result to be used for statistical tracking purpose only.PERFORMED BY:[facility] BECKY STSACRED HE[place], [place] [id number] MEDICAL DIRECTORSHILOH SPRINGER M.D. 77.7\S\77.[address] [facility] [place] [address] DO Work Phone: 10.4\S\10.4 above high threshold 6.6-10.1 [facility] [address] DO Work Phone: 133\S\133 below low threshold 150-450 [facility] [address] DO Work Phone: 33.9\S\33.9 Normal 32.5-35.6 [facility] [address] DO Work Phone: [phone] 28.5\S\28.5 Normal 27.5-35.2 [facility] [address] DO Work Phone: 9.8\S\9.8 above high threshold 1.8-7.7 [facility] [address] DO Work Phone: 0.0\S\0.0 Normal 0.0-0.2 [facility] [address] DO Work Phone: Comment on above: PERFORMED BY:[facility] ESCOB[place] [id number] MEDICAL DIRECTORSHILOH SPRINGER M.D. 0.3\S\0.[address] [facility] [place] [address] DO Work Phone: 1.7\S\1.7 Normal 1.00-4.8 [facility] [address] DO Work Phone: 6.7\S\6.[address] [facility] [address] DO Work Phone: 13.6\S\13.[address] [facility] [address] DO Work Phone: 0.2\S\0.2 Normal 0.0-0.45 [facility] [address] DO Work Phone: 0.8\S\0.8 Normal 0.0-0.8 [facility] [address] DO Work Phone: 84.1\S\84.1 Normal 83.5-101 [facility] [address] DO Work Phone: 37.6\S\37.6 below low threshold 38.8-50.0 [facility] [address] DO Work Phone: 12.8\S\12.8 below low threshold 13.0-17.0 [facility] [address] DO Work Phone: 4.48\S\4.48 Normal 3.90-5.60 [facility] [address] DO Work Phone: 12.6\S\12.6 above high threshold 4.1-10.5 [facility] [address] DO Work Phone: 25.9\S\25.9 Normal 22.0-30.0 [facility] [address] DO Work Phone: 101\S\101 Normal 95-114 [facility] 250 DO Work Phone: 4.3\S\4.3 Normal 3.5-5.1 [facility] [place] [place] 250 DO Work Phone: 137\S\137 Normal 136-146 [facility] [place] [place] 250 DO Work Phone: [phone] 21\S\21 Normal 9-23 [facility] [place] [place] 250 DO Work Phone: > [address] [facility] [place] 250 DO Work Phone: [phone] Comment on above: GFR estimated refere nce range: According to KDOQI guidelines, <60 ml/min/1.73m2 is sufficient to diagnose a patient with chronic kidney disease. 0.88\S\0.88 Normal 0.64-1.27 [facility] [place] 250 DO Work Phone: [phone] 2.6\S\2.6 Normal <5.0 [facility] [place] 250 DO Work Phone: [phone] Comment on above: PERFORMED BY:[address] [address] [address] ESCOBEDOHAMPDEN [place], [place] [phone] MEDICAL DIRECTORSHILOH SPRINGER M.D. 25\S\[address] [facility] [place] 250 DO Work Phone: [phone] 125\S\125 Normal 35-149 [facility] [place] 250 DO Work Phone: [phone] Comment on above: TRIG ATP III CLASSIF ICATION TRIG less than 150 mg/dL Normal TRIG 150-199 mg/dL Borderline high TRIG 200-500 mg/dL High TRIG greater than 500 mg/dL Very high Standard traceable to the Center for Disease Conrtrol and Prevention (CDC) test method. 41\S\41 Normal 29-71 [facility] [place] 250 DO Work Phone: Comment on above: HDL CHOL ATP-III CLA SSIFICATION Cardiovascular Risk HDL > or equal to 60 mg/dL LOW HDL < 40 mg/dL HIGH Platelet mean volume Auto (B ld) [Entitic vol]Ordered By: Yohan Sadler on 12-24-2021 Platelet mean volume (Bld) [Entitic vol] 10.4 fL 6.6-10.1 [facility] Platelet poor plasma interna tional normalized ratio (INR) by coagulation assay (relatOrdered By: Yohan Sadler on 12-24-2021 INR Coag (PPP) [Relative time] 1.2 {INR} [facility] Comment on above: INR Therapeutic Rang [...] 4.5 Platelets Auto (Bld) [#/Vol] Ordered By: Yohan Sadler on 12-24-2021 Platelets (Bld) [#/Vol] 133 10*3/uL 150-450 [facility] RBC Auto (Bld) [#/Vol]Ordere d By: Yohan Sadler on 12-24-2021 RBC (Bld) [#/Vol] 4.48 10*6/uL 3.90-5.60 [facility] Serum or plasma chloride rin surement (moles/volume)Ordered By: Yohan Sadler on 12-24-2021 Chloride [Moles/Vol] 101 mmol/L 95-114 [facility] Serum or plasma high density lipoprotein (HDL) cholesterol measurementOrdered By: Yohan Sadler on 12-24-2021 Cholesterol in HDL [Mass/Vol] 41 mg/dL 29-71 [facility] Comment on above: HDL CHOL ATP-III CLA SSIFICATION Cardiovascular RiskHDL > or equal to 60 mg/dL LOWHDL < 40 mg/dL HIGH Serum or plasma potassium me asurement (moles/volume)Ordered By: Yohan Sadler on 12-24-2021 Potassium [Moles/Vol] 4.3 mmol/L 3.5-5.1 [facility] Serum or plasma sodium measu rement (moles/volume)Ordered By: Yohan Sadler on 12-24-2021 Sodium [Moles/Vol] 137 mmol/L 136-146 [facility] Serum or plasma total carbon dioxide measurement (moles/volume)Ordered By: Yohan Sadler on 12-24-2021 CO2 [Moles/Vol] 25.9 mmol/L 22.0-30.0 [facility] Serum or plasma total choles terol/high density lipoprotein (HDL) cholesterol mass ratOrdered By: Yohan Sadler on 12-24-2021 Cholesterol.total/Ch olesterol in HDL [Mass ratio] 2.6 {ratio} [facility] Serum or plasma urea nitroge n measurement (mass/volume)Ordered By: Yohan Sadler on 12-24-2021 Urea nitrogen [Mass/Vol] 21 mg/dL 9-23 [facility] Triglyceride [Mass/volume] i n Serum or PlasmaOrdered By: Yohan Sadler on 12-24-2021 Triglyceride [Mass/Vol] 125 mg/dL 35-149 [facility] Comment on above: TRIG ATP III [...] Cardiac Catherization; Status:Active - Retrospective Authorization; Requested for:13Dec2021; Abnormal stress test, Class 1 obesity with body mass index (BMI) of 30.0 to 30.9 in adult, PMH: Ventricular tachycardia (paroxysmal) IO EKG Electrocardiogram- 12 Lead; Status:Complete; Done: [id number] Class 1 obesity with body mass index (BMI) of 30.0 to 30.9 in adult Healthy Weight Tips; Status:Complete - Retrospective Authorization; Done: [id number] SocHx: Former smoker Tobacco Use Screening; Status:Complete; Done: [id number] Patient Instructions By signing my name below, I, Kamille Rizo LPN ,Ed, attest that this documentation has been prepared under the direction and in the presence of Dr. Yohan Sadler MD. All medical record entries made by the Ch[employer] were at my direction and personally dictated [...] visit. Follow-up after testing completed Chief Complaint GIAN SANDOVAL is being seen for a consultation [...] motion abnormalities. 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 He is already on beta-evin, statin and aspirin. The procedure with benefits [...] not bring medication list or bottles. Called [facility] pharmacy in [place] to get medications Allergies Medication No Known [...] no seiz (more content not included)... Normal [employer] Tobacco Screening.on 022 Adult depression screening assessment No [facility] [place] [address] DO Work Phone: Tobacco use status CPHS b) No [facility] [place] [address] DO Work Phone: Vital Signs Date Time Vital Sign Value Performing Clinician Facility 04-10-2025 13:52-0400 Body height 160 cm Yohan Sadler MD Work Phone: [facility] 04-10-2025 13:52-0400 Body mass index (BMI) [Ratio] 36.49 kg/m2 Yohan Sadler MD Work Phone: [facility] 04-10-2025 13:52-0400 Body weight 93.44 kg Yohan Sadler MD Work Phone: [facility] 04-10-2025 13:52-0400 Diastolic blood pressure 76 mm[Hg] Yohan Sadler MD Work Phone: [facility] 04-10-2025 13:52-0400 Heart rate 80 /min Yohan Sadler MD Work Phone: [facility] 04-10-2025 13:52-0400 Systolic blood pressure 136 mm[Hg] Yohan Sadler MD Work Phone: [facility] 02-22-2025 17:50-0400 Body mass index (BMI) [Ratio] 35.09 kg/m2 Francisca Quintana BALLISTICS EXPERT Work Phone: [facility] 02-22-2025 17:50-0400 Body temperature 97.81 [degF] Francisca Quintana BALLISTICS EXPERT Work Phone: [facility] 02-22-2025 17:50-0400 Body weight 92.72 kg Francisca Quintana BALLISTICS EXPERT Work Phone: [facility] 02-22-2025 17:50-0400 Diastolic blood pressure 74 mm[Hg] Francisca Quintana BALLISTICS EXPERT Work Phone: [facility] 02-22-2025 17:50-0400 Heart rate 86 /min Francisca Quintana BALLISTICS EXPERT Work Phone: [facility] 02-22-2025 17:50-0400 Respiratory rate 20 /min Francisca Quintana BALLISTICS EXPERT Work Phone: [facility] 02-22-2025 17:50-0400 SaO2% (BldA) [Mass fraction] 97 % Francisca Quintana BALLISTICS EXPERT Work Phone: [facility] 02-22-2025 17:50-0400 Systolic blood pressure 104 mm[Hg] Francisca Youngcarlos BALLISTICS EXPERT Work Phone: [facility] 10-20-2024 15:37-0500 Body height 162.6 cm Enrique Arias BALLISTICS EXPERT Work Phone: [facility] 10-20-2024 15:37-0500 Body mass index (BMI) [Ratio] 35.29 kg/m2 Enrique Arias BALLISTICS EXPERT Work Phone: [facility] 10-20-2024 15:37-0500 Body temperature 98.2 [degF] Enrique Arias BALLISTICS EXPERT Work Phone: [facility] 10-20-2024 15:37-0500 Body weight 93.26 kg Enrique Arias BALLISTICS EXPERT Work Phone: [facility] 10-20-2024 15:37-0500 Diastolic blood pressure 68 mm[Hg] Enrique Arias BALLISTICS EXPERT Work Phone: [facility] 10-20-2024 15:37-0500 Heart rate 78 /min Enrique Arias BALLISTICS EXPERT Work Phone: [facility] 10-20-2024 15:37-0500 Respiratory rate 16 /min Enrique Arias BALLISTICS EXPERT Work Phone: [facility] 10-20-2024 15:37-0500 SaO2% (BldA) [Mass fraction] 98 % Enrique Arias BALLISTICS EXPERT Work Phone: [facility] 10-20-2024 15:37-0500 Systolic blood pressure 130 mm[Hg] Enrique Arias BALLISTICS EXPERT Work Phone: [facility] 08-19-2024 13:25-0500 Body height 162.6 cm Yohan Sadler MD Work Phone: [facility] 08-19-2024 13:25-0500 Body mass index (BMI) [Ratio] 35.02 kg/m2 Yohan Sadler MD Work Phone: [facility] 08-19-2024 13:25-0500 Body weight 92.53 kg Yohan Sadler MD Work Phone: [facility] 08-19-2024 13:25-0500 Diastolic blood pressure 70 mm[Hg] Yohan Sadler MD Work Phone: [facility] 08-19-2024 13:25-0500 Heart rate 72 /min Yohan Sadler MD Work Phone: [facility] 08-19-2024 13:25-0500 Systolic blood pressure 130 mm[Hg] Yohan Sadler MD Work Phone: [facility] 07-13-2024 15:53-0500 Body height 162.6 cm Enrique Arias BALLISTICS EXPERT Work Phone: [facility] 07-13-2024 15:53-0500 Body mass index (BMI) [Ratio] 35.36 kg/m2 Enrique Arias BALLISTICS EXPERT Work Phone: [facility] 07-13-2024 15:53-0500 Body temperature 96.01 [degF] Enrique Arias BALLISTICS EXPERT Work Phone: [facility] 07-13-2024 15:53-0500 Body weight 93.44 kg Enrique Arias BALLISTICS EXPERT Work Phone: [facility] 07-13-2024 15:53-0500 Diastolic blood pressure 72 mm[Hg] Enrique Arias BALLISTICS EXPERT Work Phone: [facility] 07-13-2024 15:53-0500 Heart rate 70 /min Enrique Arias BALLISTICS EXPERT Work Phone: [facility] 07-13-2024 15:53-0500 Respiratory rate 16 /min Enrique Arias BALLISTICS EXPERT Work Phone: [facility] 07-13-2024 15:53-0500 SaO2% (BldA) [Mass fraction] 99 % Enrique Juana BALLISTICS EXPERT Work Phone: [facility] 07-13-2024 15:53-0500 Systolic blood pressure 130 mm[Hg] Enrique Arias BALLISTICS EXPERT Work Phone: [facility] 10-01-2023 10:14-0500 Body height 160 cm Yohan Sadler MD Work Phone: [facility] 10-01-2023 10:14-0500 Body mass index (BMI) [Ratio] 34.37 kg/m2 Yohan Sadler MD Work Phone: [facility] 10-01-2023 10:14-0500 Body weight 88 kg Yohan Sadler MD Work Phone: [facility] 10-01-2023 10:14-0500 Diastolic blood pressure 82 mm[Hg] Yohan Sadler MD Work Phone: [facility] 10-01-2023 10:14-0500 Heart rate 72 /min Yohan Sadler MD Work Phone: [facility] 10-01-2023 10:14-0500 Systolic blood pressure 138 mm[Hg] Yohan Sadler MD Work Phone: [facility] 11-19-2022 00:00-0400 60 1 Shaikh Ramses Work Phone: [facility] [place] 600 DO Work Phone: Comment on above: [facility] 11-05-2022 10:44-0500 Body height 165.1 cm Shaikh Ramses Work Phone: [facility] 250 DO Work Phone: 11-05-2022 10:44-0500 Body mass index (BMI) [Ratio] 31.95 kg/m2 Shaikh Ectorwad Work Phone: [facility] 250 DO Work Phone: 11-05-2022 10:44-0500 Body surface area Derived from formula 1.94 m2 Shaikh Ectorwad Work Phone: [facility] 250 DO Work Phone: 11-05-2022 10:44-0500 Body weight 87.09 kg Shaikh Ectorwad Work Phone: [facility] 250 DO Work Phone: 11-05-2022 10:44-0500 Diastolic blood pressure 62 mm[Hg] Shaikh Ectorwad Work Phone: [facility] 250 DO Work Phone: 11-05-2022 10:44-0500 Heart rate 76 /min Shaikh Ectorwad Work Phone: [facility] 250 DO Work Phone: 11-05-2022 10:44-0500 Systolic blood pressure 124 mm[Hg] Shaikh Ectorwad Work Phone: [facility] 250 DO Work Phone: 12-13-2021 12:53-0400 Body height 167.64 cm Shaikh Ectorwad Work Phone: [facility] 250 DO Work Phone: 12-13-2021 12:53-0400 Body mass index (BMI) [Ratio] 30.18 kg/m2 Shaikh Ectorwad Work Phone: [facility] 250 DO Work Phone: 12-13-2021 12:53-0400 Body surface area Derived from formula 1.94 m2 Stephens Fawwad Work Phone: [facility] 250 DO Work Phone: 12-13-2021 12:53-0400 Body weight 84.82 kg Shaikh Ramses Work Phone: [facility] 250 DO Work Phone: 12-13-2021 12:53-0400 Diastolic blood pressure 72 mm[Hg] Shaikh Ramses Work Phone: [facility] 250 DO Work Phone: 12-13-2021 12:53-0400 Heart rate 70 /min Shaikh Ramses Work Phone: [facility] 250 DO Work Phone: 12-13-2021 12:53-0400 Systolic blood pressure 110 mm[Hg] Shaikh Ramses Work Phone: [facility] 250 DO Work Phone: Encounters Encounter Date Encounter Type Care Provider Facility Start: 04-14-2025 End: 04-15-2025 Clinical Support Gregory Solis DO Work Phone: [facility] Comment on above: Retinal Injection; D iabetic Retinopathy Hyperlipidemia, unsp ecified hyperlipidemia type Start: 04-10-2025 End: 04-10-2025 Office outpatient visit 25 minutes Yohan Sadler MD Work Phone: [facility] Comment on above: 3-vessel coronary ar ben disease; Cardiomyopathy, unspecified type (Multi); Hyperlipidemia, unspecified hyperlipidemia type; Diabetes mellitus of other type without complication, unspecified whether termite helper insulin use; Never smoked any substance; BMI 36.0-36.9,adult Start: 04-10-2025 End: 04-10-2025 ambulatory YOHAN [facility] Start: 04-07-2025 End: 04-07-2025 Bamboo flowsheet Gregory Solis DO Work Phone: [facility] Start: 04-07-2025 End: 04-07-2025 Bamboo flowsheet Gregory Solis DO Work Phone: [facility] Start: 04-07-2025 End: 04-07-2025 Clinical Support Gregory Solis DO Work Phone: [facility] Comment on above: Retinal Injection; D iabetic Retinopathy Start: 03-17-2025 End: 03-19-2025 Refill Fuentes Wilson MD Work Phone: [facility] Comment on above: Coronary artery dise ase involving ambler coronary artery of ambler heart without angina pectoris Start: 03-16-2025 End: 03-16-2025 Clinisync Result Encounter Francisca Quintana NP Work Phone: [facility] External Department Unsolicited Start: 03-16-2025 End: 03-16-2025 Clinisync Result Encounter Francisca Quintana BALLISTICS EXPERT Work Phone: [facility] External Department Unsolicited Start: 03-07-2025 End: 03-07-2025 Bamboo flowsheet Gregory Solis DO Work Phone: [facility] Start: 03-07-2025 End: 03-07-2025 Bamboo flowsheet Gregory Solis DO Work Phone: [facility] Start: 03-07-2025 End: 03-07-2025 Clinical Support Gregory Solis DO Work Phone: [facility] Comment on above: Retinal Injection Start: 03-06-2025 End: 03-06-2025 Refill Fuentes Wilson MD Work Phone: [facility] Comment on above: Type 2 diabetes yvonne itus with hyperglycemia (HCC) (Primary Dx) Start: 02-22-2025 End: 02-22-2025 Office outpatient visit 25 minutes Francisca Aichholz BALLISTICS EXPERT Work Phone: [facility] Comment on above: CKD stage 3b, GFR 30 -44 ml/min ([facility]) (Primary Dx); Moderate nonproliferative diabetic retinopathy of both eyes with macular edema associated with type 2 diabetes mellitus ([facility]); Type 2 diabetes mellitus without complication, without long-term current use of insulin ([facility]); Hyperlipidemia, unspecified hyperlipidemia type ; Primary hypertension ; 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 ; Diabetes mellitus type 2 with complications ([facility]) Start: 02-22-2025 End: 02-22-2025 ambulatory FRANCISCA LILIAN Not Available Start: 02-22-2025 End: 02-22-2025 Bamboo flowsheet Francisca Quintana BALLISTICS EXPERT Work Phone: [facility] Start: 02-22-2025 End: 02-22-2025 Bamboo flowsheet Francisca Quintana BALLISTICS EXPERT Work Phone: [facility] Start: 02-21-2025 End: 02-21-2025 Bamboo flowsheet Gregory Solis DO Work Phone: [facility] Start: 02-21-2025 End: 02-21-2025 Bamboo flowsheet Gregory Solis DO Work Phone: [facility] Start: 02-21-2025 End: 02-21-2025 Follow-up encounter Gregory Solis DO Work Phone: [facility] Comment on above: Retinal Injection; R etinopathy; Follow-up Start: 02-21-2025 End: 02-21-2025 ambulatory GREGORY SOLIS Not Available Start: 02-20-2025 End: 02-20-2025 Clinisync Result Encounter Francisca Quintana BALLISTICS EXPERT Work Phone: [facility] External Department Unsolicited Start: 02-20-2025 End: 02-20-2025 Clinisync Result Encounter Francisca Quintana BALLISTICS EXPERT Work Phone: [facility] External Department Unsolicited Start: 01-30-2025 End: 01-30-2025 Refill Fuentes Wilson MD Work Phone: [facility] Comment on above: Type 2 diabetes yvonne itus without complication, without long- term current use of insulin Start: 01-17-2025 End: 01-17-2025 Bamboo flowsheet Gregory Solis DO Work Phone: [facility] Start: 01-17-2025 End: 01-17-2025 Bamboo flowsheet Gregory Solis DO Work Phone: [facility] Start: 01-17-2025 End: 01-17-2025 Clinical Support Gregory Solis DO Work Phone: [facility] Comment on above: Retinal Injection Start: 01-10-2025 End: 01-10-2025 Bamboo flowsheet Gregory Solis DO Work Phone: [facility] Start: 01-10-2025 End: 01-10-2025 Bamboo flowsheet Gregory Solis DO Work Phone: [facility] Start: 01-10-2025 End: 01-10-2025 Clinical Support Gregory Solis DO Work Phone: [facility] Comment on above: Retinal Injection; R etinopathy Start: 12-13-2024 End: 12-13-2024 Bamboo flowsheet Gregory Solis DO Work Phone: [facility] Start: 12-13-2024 End: 12-13-2024 Bamboo flowsheet Gregory Solis DO Work Phone: [facility] Start: 12-13-2024 End: 12-13-2024 Follow-up encounter Gregory Solis DO Work Phone: [facility] Comment on above: Follow-up; Retinal I njection Start: 12-13-2024 End: 12-13-2024 ambulatory GREGORY SOLIS Not Available Start: 12-06-2024 End: 12-06-2024 Bamboo flowsheet Gregory Solis DO Work Phone: [facility] Start: 12-06-2024 End: 12-06-2024 Bamboo flowsheet Gregory Solis DO Work Phone: [facility] Start: 12-06-2024 End: 12-06-2024 Office outpatient visit 25 minutes Gregory Solis DO Work Phone: [facility] Comment on above: Follow-up; Blurred V ision Start: 12-06-2024 End: 12-06-2024 ambulatory GREGORY SOLIS Not Available Start: 11-08-2024 End: 11-08-2024 Clinical Support Gregory Solis DO Work Phone: [facility] Comment on above: Retinal Injection Start: 11-02-2024 End: 11-02-2024 Bamboo flowsheet Gregory Solis DO Work Phone: [facility] Start: 11-02-2024 End: 11-02-2024 Bamboo flowsheet Gregory Solis DO Work Phone: [facility] Start: 11-02-2024 End: 11-02-2024 Clinical Support Gregory Solis DO Work Phone: [facility] Comment on above: Retinal Injection Start: 10-20-2024 End: 10-20-2024 Office outpatient visit 15 minutes Enrique Arias BALLISTICS EXPERT Work Phone: [facility] Comment on above: Primary hypertension (CMS/HCC) (Primary Dx); Type 2 diabetes mellitus without complication, without long-term current use of insulin (CMS/HCC); Type 2 diabetes mellitus with hyperglycemia (CMS/HCC); Irregular heart rate; Hyperlipidemia, unspecified hyperlipidemia type ([facility]/HCC); 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 ([facility]); Chronic kidney disease (CKD) stage G3a/A1, moderately decreased glomerular filtration rate (GFR) between 45-59 mL/min/1.73 square meter and albuminuria creatinine ratio less than 30 mg/g (H* ([facility]) Start: 10-20-2024 End: 10-20-2024 ambulatory ENRIQUE GOMEZTRICK Not Available Start: 10-20-2024 End: 10-20-2024 Bamboo flowsheet Enrique Gomeztrick BALLISTICS EXPERT Work Phone: [facility] Start: 10-20-2024 End: 10-20-2024 Bamboo flowsheet Enrique Gomeztrick BALLISTICS EXPERT Work Phone: [facility] Start: 10-11-2024 End: 10-11-2024 Bamboo flowsheet Gregory Solis DO Work Phone: [facility] Start: 10-11-2024 End: 10-11-2024 Bamboo flowsheet Gregory Solis DO Work Phone: [facility] Start: 10-11-2024 End: 10-11-2024 Follow-up encounter Gregory Solis DO Work Phone: [facility] Comment on above: Follow-up Start: 10-11-2024 End: 10-11-2024 ambulatory GREGORY SOLIS Not Available Start: 10-07-2024 End: 10-07-2024 Clinisync Result Encounter Enrique Sevillak BALLISTICS EXPERT Work Phone: [facility] Department Unsolicited Start: 10-07-2024 End: 10-07-2024 Clinisync Result Encounter Enrique Sevillak BALLISTICS EXPERT Work Phone: [facility] Unsolicited Start: 09-27-2024 End: 09-27-2024 Bamboo flowsheet Gregory Solis DO Work Phone: [facility] Start: 09-27-2024 End: 09-27-2024 Bamboo flowsheet Gregory Solis DO Work Phone: [facility] Start: 09-27-2024 End: 09-27-2024 Clinical Support Gregory Solis DO Work Phone: [facility] Comment on above: Retinal Injection Start: 09-21-2024 End: 09-21-2024 ambulatory GREGORY SOLIS Not Available Start: 09-21-2024 End: 09-21-2024 Patient encounter procedure Rupert Mcdonald DO Work Phone: [facility] Comment on above: Encounter for drug s creening Start: 09-20-2024 End: 09-20-2024 Office outpatient visit 25 minutes Gregory Solis DO Work Phone: [facility] Comment on above: Cystoid macular raman a of both eyes (Primary Dx); 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 ([facility]) Start: 09-20-2024 End: 09-20-2024 ambulatory GREGORY SOLIS Not Available Start: 09-20-2024 End: 09-20-2024 Bamboo flowssaul Solis DO Work Phone: [facility] Start: 09-20-2024 End: 09-20-2024 Bamboo flowsheet Gregory Solis DO Work Phone: [facility] Start: 08-19-2024 End: 08-19-2024 Office outpatient visit 25 minutes Yohan Sadler MD Work Phone: [facility] Comment on above: Diabetes mellitus ty pe II, non insulin dependent (Multi) (Primary Dx); 3-vessel coronary artery disease; Cardiomyopathy, unspecified type (Multi); Snoring; Hyperlipidemia, unspecified hyperlipidemia type; Never smoked any substance; BMI 35.0-35.9,adult; Atherosclerotic heart disease of ambler coronary artery without angina pectoris Start: 08-19-2024 End: 08-19-2024 ambulatory [facility] Start: 08-15-2024 End: 08-15-2024 Refill Gregory Solis DO Work Phone: [facility] Comment on above: Cystoid macular raman a of both eyes; Moderate nonproliferative diabetic retinopathy of both eyes with macular edema associated with type 2 diabetes mellitus (CMS/HCC) Start: 08-08-2024 End: 08-08-2024 Refill Enrique Arias BALLISTICS EXPERT Work Phone: [facility] Comment on above: Coronary artery dise ase involving ambler coronary artery of ambler heart without angina pectoris ([facility]/HCC) (Primary Dx); Type 2 diabetes mellitus without complication, without long-term current use of insulin ([facility]); Type 2 diabetes mellitus with hyperglycemia ([facility]); Hyperlipidemia, unspecified hyperlipidemia type ([facility]); Irregular heart rate Start: 08-05-2024 End: 08-05-2024 Bamboo flowsheet Gregory Solis DO Work Phone: [facility] Start: 08-05-2024 End: 08-05-2024 Bamboo flowsheet Gregory Solis DO Work Phone: [facility] Start: 08-05-2024 End: 08-05-2024 Office outpatient visit 25 minutes Gregory Solis DO Work Phone: [facility] Comment on above: Cystoid macular raman a of both eyes (Primary Dx); Moderate nonproliferative diabetic retinopathy of both eyes with macular edema associated with type 2 diabetes mellitus ([facility]/HCC) Start: 08-05-2024 End: 08-05-2024 ambulatory GREGORY SOLIS Not Available Start: 08-02-2024 End: 08-02-2024 Refill Enrique Arias BALLISTICS EXPERT Work Phone: [facility] Comment on above: Type 2 diabetes yvonne itus with hyperglycemia ([facility]/HCC) Start: 07-13-2024 End: 07-13-2024 Office outpatient visit 15 minutes Enrique Sevillak BALLISTICS EXPERT Work Phone: [facility] Comment on above: Primary hypertension ([facility]) (Primary Dx); 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 edema, without long-term current use of insulin ([facility]); Hyperlipidemia, unspecified hyperlipidemia type ([facility]/HCC) Start: 07-13-2024 End: 07-13-2024 ambulatory ENRIQUE ARIAS Not Available Start: 07-13-2024 End: 07-13-2024 Bamboo flowsheet Enrique Gomeztrick BALLISTICS EXPERT Work Phone: [facility] Start: 07-13-2024 End: 07-13-2024 Bamboo flowsheet Enrique Arias BALLISTICS EXPERT Work Phone: [facility] Start: 06-23-2024 End: 06-23-2024 Refill Paulette Webb COT Work Phone: [facility] Comment on above: Age-related nuclear cataract of both eyes (Primary Dx) Start: 06-06-2024 End: 06-06-2024 Refill Enrique Gomeztrick BALLISTICS EXPERT Work Phone: [facility] Comment on above: Hyperlipidemia, unsp ecified hyperlipidemia type ([facility]) Start: 05-24-2024 End: 05-24-2024 Bamboo flowsheet Gregory Solis DO Work Phone: [facility] Start: 05-24-2024 End: 05-24-2024 Bamboo flowsheet Gregory Solis DO Work Phone: [facility] Start: 05-24-2024 End: 05-24-2024 ambulatory GREGORY SOLIS Not Available Start: 05-24-2024 End: 05-24-2024 Office outpatient visit 25 minutes Gregory Solis DO Work Phone: [facility] Comment on above: Age-related nuclear cataract of both eyes (Primary Dx); 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 ([facility]/HCC) Start: 10-07-2023 Orders Only Shaikh Ramses HARP Work Phone: [facility] Comment on above: Type 2 diabetes yvonne itus without complication, without long- term current use of insulin (CMS/[facility]) (Primary Dx) Start: 10-06-2023 Clinisync Result Encounter Alonzo Pearce MD Work Phone: [facility] External Department Unsolicited Start: 10-06-2023 Clinisync Result Encounter Alonzo Pearce MD Work Phone: [facility] External Department Unsolicited Start: 10-01-2023 End: 10-01-2023 Office outpatient visit 25 minutes Yohan Sadler MD Work Phone: [facility] Comment on above: 3-vessel coronary ar ben disease; Cardiomyopathy, unspecified type (CMS/[facility]); Hyperlipidemia, unspecified hyperlipidemia type; Diabetes mellitus of other type without complication, unspecified whether termite helper insulin use ([facility]); Never smoked any substance Start: 01-01-2023 End: 01-02-[address] YOHAN SADLER Facility:[facility]1 Start: 11-21-2022 Patient encounter procedure Shaikh Ramses Work Phone: [facility] 600 DO Work Phone: Start: 11-19-2022 End: 11-20-2022 ambulatory SHAIKH Ruth PEARCE Facility:[facility]1 Start: 11-05-2022 Office outpatient vi sit 25 minutes Shaikh Ramses Work Phone: [facility] 250 DO Work Phone: Start: 11-05-2022 ambulatory Yohan Sadler Facility :[id number] Start: 06-23-2022 End: 06-24-2022 ambulatory SHAIKH Ruth PEARCE Facility:[facility]1 Start: 06-18-2022 End: 06-19-2022 ambulatory SHAIKH Ruth PEARCE Facility:[facility]1 Start: 02-04-2022 Chart Update Shaikh Ramses Work Phone: [facility] 250 DO Work Phone: Start: 12-30-2021 Patient encounter procedure Shaikh Ramses Work Phone: [facility] 250 DO Work Phone: Start: 12-27-2021 Chart Update Shaikh Ramses Work Phone: [facility] 250 DO Work Phone: Start: 12-26-2021 ambulatory Yohan Sadler Facility :[id number] Start: 12-26-2021 SURGNON, Provider: Yohan Sadler, Status: Pen, Time: 2:00 PM Shaikh Ramses Work Phone: [facility] 250 DO Work Phone: Start: 12-26-2021 End: 12-26-2021 ambulatory Shaikh Ramses Facility:[facility] Start: 12-26-2021 Chart Update Shaikh Ramses Work Phone: [facility] 250 DO Work Phone: Start: 12-24-2021 End: 12-24-2021 Patient encounter procedure MD Yohan Sadler Work Phone: [facility] Start: 12-13-2021 ambulatory Yohan Sadler Facility :[id number] Start: 11-20-2021 ambulatory Yohan Sadler Facility :[facility] Procedures Date Procedure Procedure Detail Performing Clinician Start: 04-14-2025 Intravitreal njx pharmacologic agt spx Gregory Solis DO Work Phone: Start: 04-07-2025 Intravitreal njx pharmacologic agt spx Gregory Solis DO Work Phone: Start: 04-07-2025 Computerized ophthal debi imaging retina Gregory Solis DO Work Phone: Start: 03-16-2025 US RENAL BI Francisca titus BALLISTICS EXPERT Work Phone: Start: 03-07-2025 Intravitreal njx pharmacologic agt spx Gregory Solis DO Work Phone: Start: 02-22-2025 Hemoglobin glycosyla mahesh a1c Francisca Youngmacymary BALLISTICS EXPERT Work Phone: Start: 02-21-2025 Intravitreal njx pharmacologic agt spx Gregory Solis DO Work Phone: Start: 02-21-2025 Computerized ophthal debi imaging retina Gregory Solis DO Work Phone: Start: 02-20-2025 ALL BASIC METABOLIC PANEL Francisca Lilian [employer] Work Phone: Start: 01-17-2025 Intravitreal njx pharmacologic agt spx Gregory Solis DO Work Phone: Start: 01-10-2025 Intravitreal njx pharmacologic agt spx Gregory Solis DO Work Phone: Start: 01-10-2025 Computerized ophthal debi imaging retina Gregory Solis DO Work Phone: Start: 12-13-2024 Intravitreal njx pharmacologic agt spx Gregory Solis DO Work Phone: Start: 12-06-2024 Computerized ophthal debi imaging retina Gregory Solis DO Work Phone: Start: 12-06-2024 Intravitreal njx pharmacologic agt spx Gregory Solis DO Work Phone: Start: 11-08-2024 Intravitreal njx pharmacologic agt spx Gregory Solis DO Work Phone: Start: 11-02-2024 Intravitreal njx pharmacologic agt spx Gregory Solis DO Work Phone: Start: 11-02-2024 Computerized ophthal debi imaging retina Gregory Solis DO Work Phone: Start: 10-11-2024 Intravitreal njx pharmacologic agt spx Gregory Solis DO Work Phone: Start: 10-07-2024 ALL CBC WITH AUTO DIFF Enrique Gomeztrick [employer]IST[employer] EXPERT Work Phone: Start: 09-27-2024 Intravitreal njx pharmacologic agt spx Gregory Solis DO Work Phone: Start: 09-20-2024 Computerized ophthal debi imaging retina Gregory Solis DO Work Phone: Start: 08-05-2024 Computerized ophthal debi imaging retina Gregory Solis DO Work Phone: Start: 05-24-2024 Oph bmtry prtl coher intrfrmtry io lens pwr chiara Gregory Solis DO Work Phone: Start: 05-24-2024 Computerized ophthal debi imaging retina Gregory Solis DO Work Phone: Start: 10-06-2023 [facility] MICROALB ARELI Pearce MD Work Phone: Start: 12-24-2021 SARS Antigen (LFIA) MD Yohan Sadler Work Phone: Plan of Treatment Date Care Activity Detail Author Start: 04-07-2026 Glaucoma screening Diabetes: Retinopathy Screening [facility] Start: 02-21-2026 Glaucoma screening Diabetes: Retinopathy Screening [facility] Start: 01-10-2026 Glaucoma screening Diabetes: Retinopathy Screening [facility] Start: 12-06-2025 Glaucoma screening Diabetes: Retinopathy Screening [facility] Start: 11-03-2025 End: 11-03-2025 Patient encounter procedure 11/03/2025 2:50 PM EST Office Visit [address] [address] Yohan Sadler MD [address] [place] [address] [facility] Start: 11-02-2025 Glaucoma screening Diabetes: Retinopathy Screening [facility] Start: 10-20-2025 Pneumococcal Vaccine: 65+ Years (1 of 2 - PCV) Pneumococcal Vaccine: 65+ Years (1 of 2 - PCV) [facility] Comment on above: Postponed from 1964 (Patient Refus ed) Postponed from 12/19 (Patient Refused) Start: 09-20-2025 Glaucoma screening Diabetes: Retinopathy Screening [facility] Start: 08-24-2025 Hemoglobin A1c measurement Diabetes: Hemoglobin A1C [facility] Start: 08-05-2025 Glaucoma screening Diabetes: Retinopathy Screening [facility] Start: 05-26-2025 End: 05-26-2025 Clinical Support 05/26/2025 10:45 AM EDT Clinical Support [facility] [address] [place] [phone] Gregory Solis DO [address] [place] [address] [facility] Start: 05-24-2025 Glaucoma screening Diabetes: Retinopathy Screening [facility] Start: 05-01-2025 Influenza vaccination [facility] Start: 04-26-2025 End: 04-26-2025 Patient encounter procedure 04/26/2025 4:00 PM EDT Appointment [facility] [address] [place] [phone] [facility] Start: 04-25-2025 End: 04-25-2025 Patient encounter procedure 04/25/2025 3:40 PM EDT Office Visit [facility] [address] [place] [phone] Francisca Quintana NP [address] [place] [phone] [facility] Start: 04-21-2025 End: 04-21-2025 Patient encounter procedure 04/21/2025 1:40 PM EDT Office Visit [facility] [address] [facility] [address] [place] [phone] Yohan Sadler MD [address] [place] [address] [facility] Start: 04-10-2025 End: 04-10-2026 Alanine aminotransferase [Enzymatic activity/volume] in Serum or Plasma by With P-5'-P Alanine Aminotransferase Lab Routine Hyperlipidemia, unspecified hyperlipidemia type Expected: 04/10/2025, Expires: 04/10/2026 [facility] Work Phone: Comment on above: Expected: 04/10/2025, Expires: Start: 04-10-2025 End: 04-10-2026 Aspartate aminotransferase [Enzymatic activity/volume] in Serum or Plasma by With P-5'-P Aspartate Aminotransferase Lab Routine Hyperlipidemia, unspecified hyperlipidemia type Expected: 04/10/2025, Expires: 04/10/2026 [facility] Work Phone: Comment on above: Expected: 04/10/2025, Expires: Start: 04-10-2025 End: 04-10-2026 Basic metabolic 2000 panel - Serum or Plasma Basic Metabolic Panel Lab Routine 3-vessel coronary artery disease Cardiomyopathy, unspecified type (Multi) Diabetes mellitus of other type without complication, unspecified whether alf insulin use Expected: 04/10/2025, Expires: 04/10/2026 [facility] Work Phone: Comment on above: Expected: 04/10/2025, Expires: Start: 04-10-2025 End: 04-10-2026 CBC panel - Blood by Automated count CBC Lab Routine 3-vessel coronary artery disease Cardiomyopathy, unspecified type (Multi) Diabetes mellitus of other type without complication, unspecified whether termite helper insulin use Expected: 04/10/2025, Expires: 04/10/2026 [facility] Work Phone: Comment on above: Expected: 04/10/2025, Expires: Start: 04-10-2025 End: 04-10-2026 Lipid 1996 panel - Serum or Plasma Lipid Panel Lab Routine Hyperlipidemia, unspecified hyperlipidemia type Expected: 04/10/2025, Expires: 04/10/2026 [facility] Work Phone: Comment on above: Expected: 04/10/2025, Expires: Start: 04-10-2025 End: 04-10-2027 US Heart Transthoracic Transthoracic Echo Complete Echocardiography Routine 3-vessel coronary artery disease Cardiomyopathy, unspecified type (Multi) Hyperlipidemia, unspecified hyperlipidemia type Diabetes mellitus of other type without complication, unspecified whether termite helper insulin use Expected: 04/10/2025 (Approximate), Expires: 04/10/2027 [facility] Service Area Work Phone: Comment on above: Expected: 04/10/2025 (Approximate), Expi res: 04/10/2027 Start: 04-07-2025 End: 04-07-2025 Clinical Support [facility] Comment on above: Arrived Start: 03-07-2025 End: 03-07-2025 Clinical Support [facility] Comment on above: Arrived Start: 02-22-2025 End: 02-22-2025 Patient encounter procedure [facility] Comment on above: Moderate nonproliferative diabetic retin opathy of both eyes with macular edema associated with type 2 diabetes mellitus (HCC) (Primary Dx); Type 2 diabetes mellitus without complication, without long-term current use of insulin (HCC); Hyperlipidemia, unspecified hyperlipidemia type ; Primary hypertension ; 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 Start: 02-22-2025 End: 02-22-2026 Basic metabolic 1998 panel - Serum or Plasma Basic metabolic panel Lab Routine CKD stage 3b, GFR 30-44 ml/min ([facility]) Expected: 02/22/2025 (Approximate), Expires: 02/22/2026 [facility] Comment on above: Expected: 02/22/2025 (Approximate), Expi res: 02/22/2026 Start: 02-22-2025 End: 02-22-2026 Microalbumin/Creatinine panel in random Urine Microalbumin / creatinine, urine ratio Lab Routine CKD stage 3b, GFR 30-44 ml/min ([facility]) Expected: 02/22/2025 (Approximate), Expires: 02/22/2026 [facility] Comment on above: Expected: 02/22/2025 (Approximate), Expi res: 02/22/2026 Start: 02-22-2025 End: 02-22-2026 Parathyrin.intact [Mass/volume] in Serum or Plasma PTH, intact Lab Routine CKD stage 3b, GFR 30-44 ml/min ([facility]) Expected: 02/22/2025 (Approximate), Expires: 02/22/2026 [facility] Comment on above: Expected: 02/22/2025 (Approximate), Expi res: 02/22/2026 Start: 02-22-2025 End: 02-22-2026 Urinalysis complete panel - Urine Urinalysis with reflex microscopic (clean catch) Lab Routine CKD stage 3b, GFR 30-44 ml/min ([facility]) Expected: 02/22/2025 (Approximate), Expires: 02/22/2026 [facility] Comment on above: Expected: 02/22/2025 (Approximate), Expi res: 02/22/2026 Start: 02-22-2025 End: 02-22-2026 US Kidney US renal complete Imaging Routine CKD stage 3b, GFR 30-44 ml/min ([facility]) Expected: 02/22/2025, Expires: 02/22/2026 [facility] Work Phone: Comment on above: Expected: 02/22/2025, Expires: Start: 02-21-2025 End: 02-21-2025 Clinical Support [facility] Comment on above: Arrived Start: 01-11-2025 End: 01-11-2025 Patient encounter procedure 01/11/2025 6:00 PM EDT Office Visit [facility] [address] [place] [address] Francisca Quintana [employer] EXPERT [address] [place] [address] [facility] Start: 12-15-2024 Influenza vaccination Influenza Vaccine (#1) [facility] Comment on above: Postponed from 05/01/2024 (Patient Refus ed) Start: 12-13-2024 End: 12-13-2024 Clinical Support 12/13/2024 9:15 AM EDT Clinical Support [facility] [address] [place] [phone] Gregory Solis DO [address] [place] [address] Arrived [facility] Comment on above: Arrived Start: 12-06-2024 End: 12-06-2024 Clinical Support [facility] Comment on above: Arrived Start: 12-01-2024 End: 10-20-2025 Comprehensive metabolic 2000 panel - Serum or Plasma Comprehensive metabolic panel Lab Routine Type 2 diabetes mellitus with hyperglycemia (CMS/HCC) Primary hypertension (CMS/HCC) Chronic kidney disease (CKD) stage G3a/A1, moderately decreased glomerular filtration rate (GFR) between 45-59 mL/min/1.73 square meter and albuminuria creatinine ratio less than 30 mg/g (H* (CMS/HCC) Expected: 12/01/2024 (Approximate), Expires: 10/20/2025 [facility] Work Phone: Comment on above: Expected: 12/01/2024 (Approximate), Expi res: 10/20/2025 Start: 12-01-2024 Screening for malignant neoplasm of colon Colorectal Cancer Screening [facility] Comment on above: Postponed from 1958 (Patient Refus ed) Start: 11-30-2024 End: 11-30-2024 Patient encounter procedure 11/30/2024 5:00 PM EDT Office Visit [facility] [address] [place] [address] Francisca Quintana, B[employer]IST[employer] EXPERT [address] [place] [address] [facility] Start: 11-09-2024 Glaucoma screening Diabetes: Retinopathy Screening [facility] Start: 11-02-2024 End: 11-02-2024 Clinical Support [facility] Comment on above: Arrived Start: 10-20-2024 End: 10-20-2024 Patient encounter procedure 10/20/2024 4:00 PM EST Office Visit [facility] [address] [place] [phone] Enrique Arias NP [address] [place] [phone] Arrived [facility] Comment on above: Arrived Start: 10-19-2024 End: 10-19-2024 Patient encounter procedure 10/19/2024 4:40 PM EST Office Visit [facility] [address] [place] [phone] Enrique Arias NP [address] [place] [phone] [facility] Start: 10-11-2024 End: 10-11-2024 Clinical Support [facility] Comment on above: Arrived Start: 10-06-2024 Urine screening for protein Diabetes: Urine Protein Screening [facility] Start: 09-27-2024 End: 09-27-2024 Clinical Support 09/27/2024 8:30 AM EST Clinical Support [facility] [address] [place] [phone] Gregory Solis DO [address] [place] [address] Arrived [facility] Comment on above: Arrived Start: 09-20-2024 End: 09-20-2024 Patient encounter procedure [facility] Comment on above: Arrived Start: 09-07-2024 Influenza vaccination Influenza Vaccine (#1) [facility] Comment on above: Postponed from 05/01/2024 (Patient Refus ed) Start: 08-25-2024 Hemoglobin A1c measurement Diabetes: Hemoglobin A1C [facility] Start: 08-19-2024 End: 08-19-2025 Alanine aminotransferase [Enzymatic activity/volume] in Serum or Plasma by With P-5'-P Alanine Aminotransferase Lab Routine 3-vessel coronary artery disease Hyperlipidemia, unspecified hyperlipidemia type Expected: 08/19/2024 (Approximate), Expires: 08/19/2025 [facility] Work Phone: Comment on above: Expected: 08/19/2024 (Approximate), Expi res: 08/19/2025 Start: 08-19-2024 End: 08-19-2025 Aspartate aminotransferase [Enzymatic activity/volume] in Serum or Plasma by With P-5'-P Aspartate Aminotransferase Lab Routine 3-vessel coronary artery disease Hyperlipidemia, unspecified hyperlipidemia type Expected: 08/19/2024 (Approximate), Expires: 08/19/2025 [facility] Work Phone: Comment on above: Expected: 08/19/2024 (Approximate), Expi res: 08/19/2025 Start: 08-19-2024 End: 08-19-2025 Basic metabolic 2000 panel - Serum or Plasma Basic Metabolic Panel Lab Routine 3-vessel coronary artery disease Cardiomyopathy, unspecified type (Multi) Expected: 08/19/2024 (Approximate), Expires: 08/19/2025 [facility] Work Phone: Comment on above: Expected: 08/19/2024 (Approximate), Expi res: 08/19/2025 Start: 08-19-2024 End: 08-19-2025 CBC panel - Blood by Automated count CBC Lab Routine 3-vessel coronary artery disease Cardiomyopathy, unspecified type (Multi) Expected: 08/19/2024 (Approximate), Expires: 08/19/2025 [facility] Work Phone: Comment on above: Expected: 08/19/2024 (Approximate), Expi res: 08/19/2025 Start: 08-19-2024 End: 08-19-2025 In-Center Sleep Study In-Center Sleep Study Sleep Center Routine Cardiomyopathy, unspecified type (Multi) Snoring Expected: 08/19/2024 (Approximate), Expires: 08/19/2025 [facility] Work Phone: Comment on above: Expected: 08/19/2024 (Approximate), Expi res: 08/19/2025 Start: 08-19-2024 End: 08-19-2025 Lipid 1996 panel - Serum or Plasma Lipid Panel Lab Routine 3-vessel coronary artery disease Hyperlipidemia, unspecified hyperlipidemia type Expected: 08/19/2024 (Approximate), Expires: 08/19/2025 [facility] Service Area Work Phone: Comment on above: Expected: 08/19/2024 (Approximate), Expi res: 08/19/2025 Start: 08-05-2024 End: 08-05-2024 Patient encounter procedure 08/05/2024 11:45 AM EST Office Visit [facility] [address] [place] [address] Gregory Solis DO [address] [place] [address] Arrived [facility] Comment on above: Arrived Start: 07-13-2024 End: 07-13-2024 Patient encounter procedure 07/13/2024 4:00 PM EST Office Visit [facility] [address] [place] [address] Enrique Arias NP [address] [place] [address] [facility] Start: 07-13-2024 End: 07-13-2025 CBC W Auto Differential panel - Blood CBC and differential Lab Routine Primary hypertension (CMS/HCC) 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 edema, without long-term current use of insulin ([facility] Expected: 07/13/2024 (Approximate), Expires: 07/13/2025 [facility] Comment on above: Expected: 07/13/2024 (Approximate), Expi res: 07/13/2025 Start: 07-13-2024 End: 07-13-2025 Comprehensive metabolic 2000 panel - Serum or Plasma Comprehensive metabolic panel Lab Routine Primary hypertension ([facility]) 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 edema, without long-term current use of insulin ([facility]) Expected: 07/13/2024 (Approximate), Expires: 07/13/2025 [facility] Comment on above: Expected: 07/13/2024 (Approximate), Expi res: 07/13/2025 Start: 07-13-2024 End: 07-13-2025 Hemoglobin A1c/Hemoglobin.total in Blood Hemoglobin A1c Lab Routine 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 edema, without long-term current use of insulin ([facility]) Expected: 07/13/2024 (Approximate), Expires: 07/13/2025 [facility] Comment on above: Expected: 07/13/2024 (Approximate), Expi res: 07/13/2025 Start: 07-13-2024 End: 07-13-2025 Lipid 1996 panel - Serum or Plasma Lipid panel Lab Routine Hyperlipidemia, unspecified hyperlipidemia type ([facility]) Expected: 07/13/2024 (Approximate), Expires: 07/13/2025 [facility] Comment on above: Expected: 07/13/2024 (Approximate), Expi res: 07/13/2025 Start: 07-13-2024 End: 07-13-2025 TSH W/REFLEX TO FT4 TSH W/REFLEX TO FT4 Lab Routine Primary hypertension ([facility]) Expected: 07/13/2024 (Approximate), Expires: 07/13/2025 [facility] Work Phone: Comment on above: Expected: 07/13/2024 (Approximate), Expi res: 07/13/2025 Start: 07-07-2024 End: 07-07-2024 Patient encounter procedure 07/07/2024 8:40 AM EST Procedure Visit [facility] Gregory Solis DO [address] [place] [address] [facility] Start: 07-06-2024 End: 07-06-2024 Patient encounter procedure 07/06/2024 4:00 PM EST Office Visit [facility] [address] [place] [phone] Enrique Arias NP [address] [place] [address] [facility] Start: 07-05-2024 End: 07-05-2024 Patient encounter procedure 07/05/2024 11:10 AM EST Office Visit [facility] [address] [facility] [address] [place] [address] Yohan Sadler MD [address] [place] [address] [facility] Start: 06-02-2024 End: 06-02-2024 Patient encounter procedure 06/02/2024 10:00 AM EDT Procedure Visit [facility] Gregory Solis DO [address] [place] [address] [facility] Start: 05-01-2024 COVID-19 Vaccine ( season) COVID-19 Vaccine ( season) [facility] Start: 05-01-2024 Influenza vaccination Influenza Vaccine (#1) [facility] Start: 02-28-2024 Influenza vaccination Influenza Vaccine (#1) [facility] Comment on above: Postponed from 05/01/2023 (Patient Refus ed) Start: 01-04-2024 Hemoglobin A1c measurement Diabetes: Hemoglobin A1C [facility] Start: 12-02-2023 End: 12-02-2023 Patient encounter procedure 12/02/2023 3:30 PM EDT Office Visit [facility] [address] [place] [address] Shaikh Pearce MD [address] [place] [address] [facility] Start: 10-01-2023 End: 10-01-2024 Lipid 1996 panel - Serum or Plasma Lipid Panel Lab Routine Hyperlipidemia, unspecified hyperlipidemia type Expected: 10/01/2023 (Approximate), Expires: 10/01/2024 [facility] Service Area Work Phone: Comment on above: Expected: 10/01/2023 (Approximate), Expi res: 10/01/2024 Start: 08-04-2023 FUV, Provider: Yohan Sadler, Status: Pen, Time: 10:50 AM FUV, Provider: Yohan Sadler, Status: Pen, Time: 10:[address] [facility] [employer] [address] DO Work Phone: Start: 05-01-2023 Influenza vaccination Influenza Vaccine (#1) [facility] Start: 01-20-2022 FUV, Provider: Yohan Sadler, Status: Pen, Time: 3:50 PM FUV, Provider: Yohan Sadler, Status: Pen, Time: 3:[address] [facility] [employer] [address] DO Work Phone: Start: 2018 RSV High Risk: (Elderly (60+) or Population) (1 - Risk 60-74 years 1-dose series) RSV High Risk: (Elderly (60+) or Population) (1 - Risk 60-74 years 1-dose series) [facility] Start: 2008 Prostate specific antigen measurement PSA Prostate Cancer Screening [facility] Start: 2008 Zoster Vaccines (1 of 2) Zoster Vaccines (1 of 2) [facility] Start: 1980 DTaP/Tdap/Td Vaccines (1 - Tdap) DTaP/Tdap/Td Vaccines (1 - Tdap) [facility] Start: 1977 Pneumococcal vaccination Pneumococcal Vaccine (1 of 2 - PCV) [facility] Start: 1977 Urine screening for protein Diabetes: Urine Protein Screening [facility] Start: 1976 Hepatitis C screening Hepatitis C Screening [facility] Start: 1968 Diabetic foot examination Diabetes: Foot Exam [facility] Start: 1968 Glaucoma screening Diabetes: Retinopathy Screening [facility] Start: 1964 Pneumococcal Vaccine: 65+ Years (1 - PCV) Pneumococcal Vaccine: 65+ Years (1 - PCV) [facility] Start: 1964 Pneumococcal Vaccine: 65+ Years (1 of 2 - PCV) Pneumococcal Vaccine: 65+ Years (1 of 2 - PCV) [facility] Start: 1964 Pneumococcal Vaccine: Pediatrics (0 to 5 Years) and At-Risk Patients (6 to 64 Years) (1 - PCV) Pneumococcal Vaccine: Pediatrics (0 to 5 Years) and At-Risk Patients (6 to 64 Years) (1 - PCV) [facility] Start: 12-20-1959 MMR Vaccines (1 of 1 - Standard series) MMR Vaccines (1 of 1 - Standard series) [facility] Start: 06-20-1959 COVID-19 Vaccine (#1) COVID-19 Vaccine (#1) [facility] Start: 1958 Hemoglobin A1c measurement Diabetes: Hemoglobin A1C [facility] Start: 1958 HIV screening HIV Screening [facility] Start: 1958 Lipid panel Lipid Panel [facility] Start: 1958 Screening for malignant neoplasm of colon [facility] Start: 1958 Urine screening for protein Diabetes: Urine Protein Screening [facility] Start: 1958 Yearly Adult Physical Yearly Adult Physical [facility] Microalbumin/Creatin ine panel in random Urine Microalbumin / creatinine urine ratio Lab Routine Type 2 diabetes mellitus with hyperglycemia (CMS/HCC) Primary hypertension (CMS/HCC) Ordered: 10/20/2024 [facility] Comment on above: Ordered: 10/20/2024 Payers Date Payer Category Payer Self-pay [id number] 2018 [employer] Blue [employer] [id number] 2018 Blue Cross Blue [employer] [facility] [id number] 2018 Unknown 1959 Unknown [id number] 1958 Unknown [id number] 2.16.840.1.353087.3.579. 2.356 1958 Unknown [id number] 2.16840.1.775250.3.579. 2.356 1958 Unknown [id number] 2.840.1.000727.3.579. 2.356 1958 Unknown [id number] 2.16.840.1.055133.3.579. 2.593 1958 Unknown [id number] 2.16.840.1.855423.3.579. 2.593 1958 Unknown [id number] 2.16.840.1.306329.3.579. 2.593 1958 Unknown [id number] 2.16.840.1.926963.3.579. 2.593 1958 Unknown [id number] 2.16.840.1.465658.3.579. 2.593 1958 Unknown [id number] 2.16.840.1.561986.3.579. 2.1244 1958 Unknown [id number] 2.16.840.1.428782.3.579. 2.1244 1958 Unknown [id number] 2.16.840.1.561794.3.579. 2.125 1958 Unknown [id number] 2.16.840.1.028867.3.579. 2.125 1958 Unknown [id number] 2.16.840.1.758444.3.579. 2.1258 1958 Unknown [id number] 2.16.840.1.690214.3.579. 2.1258 1958 Unknown [id number] 2.16.840.1.474628.3.579. 2.125 1958 Unknown [id number] 2.16.840.1.859202.3.579. 2.1258 1958 Unknown [id number] 2.16.840.1.725544.3.579. 2.125 1958 Unknown [id number] 2.16.840.1.531054.3.579. 2.125 1958 Unknown [id number] 2.16.840.1.139159.3.579. 2.125 1958 Unknown [id number] 2.16.840.1.698139.3.579. 2.125 1958 Unknown [id number] 2.16.840.1.635972.3.579. 2.125 1958 Unknown [id number] 2.16.840.1.827922.3.579. 2.125 1958 Unknown [id number] 2.16.840.1.467179.3.579. 2.1259 1958 Unknown [id number] 2.16.840.1.258581.3.579. 2.1259 1958 Unknown [id number] 2.16.840.1.707638.3.579. 2.1259 1958 Unknown [id number] 2.16.840.1.370462.3.579. 2.9 1958 Unknown [id number] 2.16.840.1.814661.3.579. 2.1259 1958 Unknown [id number] 2.16.840.1.363670.3.579. 2.9 1958 Unknown [id number] 2.16.840.1.270748.3.579. 2.1258 Unknown [id number] 2.16.840.1.538159.3.579. 2.531 Social History Date Type Detail Facility Start: 12-24-2021 End: 12-02-2023 Tobacco smoking status [facility] – [facility] Start: 1960 Sex Assigned At Male [facility] Start: 10-01-2023 End: 03-02-2024 Former smoker Former smoker -[facility] 250 DO Work Phone: Comment on above: QUIT IN 1999; Start: 09-02-2023 End: 10-01-2023 Tobacco smoking status VTIS Never smoked tobacco [facility] Work Phone: Start: 10-01-2023 End: 12-02-2023 Tobacco use and exposure Smokeless tobacco non-user [facility] Work Phone: Start: 10-01-2023 End: 04-14-2025 Alcohol intake Lifetime non-drinker (finding) [facility] Work Phone: Start: 10-01-2023 End: 03-02-2024 Tobacco use panel [facility] Work Phone: Start: 1960 Sex Assigned At Not on file [facility] Work Phone: Start: 09-21-2023 End: 08-19-2024 Exposure to SARS-CoV-2 (event) Not sure [facility] History of tobacco use Current smoker [facility] History of tobacco use Cigarette Smoker [facility] History of tobacco use Passive smoker [facility] Start: 08-19-2024 End: 04-10-2025 Alcoholic beverage intake Ex-drinker (finding) [facility] Work Phone: Start: 07-25-2022 Sex Male [facility] Medical Equipment Procedure Code Equipment Code Equipment Origin al Text Equipment Identifier Dates 1 each by Other route if needed [id number] Start: 06-23-2023 USE TO CHECK FAS TING BLOOD SUGAR EVERY 12 HOURS [id number] Start: 12-21-2023 End: 08-02-2024 USE TO CHECK FAS TING BLOOD SUGAR EVERY 12 HOURS [id number] Start: 08-02-2024 End: 03-06-2025 Twice a day. Use as instructed [id number] Start: 03-06-2025 Clinical Notes 10-01-2023 to 04-14-2025 Gregory Solis, - 04/14/2025 10:30 AM Rosangela Sadler MD - 04/10/2025 1:50 PM EDTPatient InstructionsGregory Solis, - 04/07/2025 10:30 AM EDTPatient InstructionsPatient Instructions Note Date & Type Note Facility 04-14-2025 Note Time Out 04/14/2025. 11:21 AM. Confirmed correct patient, procedure, site, and patient consented. Anesthesia Topical anesthesia was used. Anesthetic medications included Lidocaine 2%, Proparacaine 0.5%. Procedure Preparation included 5% betadine to ocular surface, eyelid speculum. Injection: 1.25 mg Bevacizumab 1.25 MG/0.05ML Route: Intravitreal, Site: Left Eye [facility]: [address]-8, Lot: [id number], Expiration date: 07/18/2025 Post-op Post injection exam found visual acuity of at least counting fingers, no retinal detachment, perfused optic nerve. The patient tolerated the procedure well. There were no complications. The patient received written and verbal post procedure care education. Post injection medications were not given. Notes Intravitreal antiVEGF Treatment: Risks, benefits and alternatives were discussed for Intravitreal injection with the prescribed antiVEGF agent. With intraocular surgery, there is potential for direct retinal damage through retinal or RPE tear, or infection, with subsequent vision loss. Informative Intravitreal pamphlet provided as well as an OMIC consent. Of course, the treatment may fail to accomplish the overall therapeutic objectives, which is to stall or decrease the amount of retinal edema / bleeding, and therefore stall or improve vision loss. Intravitreal Anti-VEGF: Consent was obtained and questions answered. Operative eye was identified, receiving topical proparacaine, 5% betadine, and 2% xylocaine jelly. A lid speculum was placed and the inferotemp. injection site received additional anesthetic with a proparacaine soaked cotton swab. Using calipers (set at 3.5mm for pseudo and 4mm for phakic), the inferotemp. limbus was measured, sclera marked and 2 additional drops of betadine placed. Avoiding any talking to avoid contamination, intravitreal injection was carried out without difficulty. Any residual amount of medication was discarded appropriately. The patient tolerated the procedure well and instructed to call with increased pain, redness, decreased vision or concerns. [facility] 04-14-2025 History of Present illness Narrative Images from the original note were not included. 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 11:21 AM. Confirmed correct patient, procedure, site, and patient consented. Anesthesia Topical anesthesia was used. Anesthetic medications included Lidocaine 2%, Proparacaine 0.5%. Procedure Preparation included 5% betadine to ocular surface, eyelid speculum. Injection: 1.25 mg Bevacizumab 1.25 MG/0.05ML Route: Intravitreal, Site: Left Eye [facility]: [address]-1, Lot: [id number], Expiration date: 07/18/2025 Post-op Post injection exam found visual acuity of at least counting fingers, no retinal detachment, perfused optic nerve. The patient tolerated the procedure well. There were no complications. The patient received written and verbal post procedure care education. Post injection medications were not given. Notes Intravitreal antiVEGF Treatment: Risks, benefits and alternatives were discussed for Intravitreal injection with the prescribed antiVEGF agent. With intraocular surgery, there is potential for direct retinal damage through retinal or RPE tear, or infection, with subsequent vision loss. Informative Intravitreal pamphlet provided as well as an OMIC consent. Of course, the treatment may fail to accomplish the overall therapeutic objectives, which is to stall or decrease the amount of retinal edema / bleeding, and therefore stall or improve vision loss. Intravitreal Anti-VEGF: Consent was obtained and questions answered. Operative eye was identified, receiving topical proparacaine, 5% betadine, and 2% xylocaine jelly. A lid speculum was placed and the inferotemp. injection site received additional anesthetic with a proparacaine soaked cotton swab. Using calipers (set at 3.5mm for pseudo and 4mm for phakic), the inferotemp. limbus was measured, sclera marked and 2 additional drops of betadine placed. Avoiding any talking to avoid contamination, intravitreal injection was carried out without difficulty. Any residual amount of medication was discarded appropriately. The patient tolerated the procedure well and instructed to call with increased pain, redness, decreased vision or concerns. documented in this encounter [facility] 04-10-2025 History of Present illness Narrative HPI Patient is in the office for follow-up for ischemic heart disease and severe two-vessel CAD. He has ischemic cardiomyopathy ejection fraction 45%. Since he was last seen in the office has had no admission to the hospital for heart failure, arrhythmias or ischemic heart disease. I did not see any blood work on him except for CBC since last visit. There has been no functional studies to assess ejection fraction for the last 3 years. He continue to work and has no difficulties doing his job. Review of system essentially normal physical examination is remarkable for class II obesity. Assessment/recommendations: 1-severe coronary artery disease confirmed by cardiac catheterization November 2021. He has occlusion of the RCA and left circumflex with 50 to 70% mid LAD stenosis with mature nature of collaterals and ejection fraction 45%. Viability study time out to be negative therefore, revascularization with surgery was not recommended. We will continue aggressive modification risk factor for CAD. 2-ischemic cardiopathy stage C functional class II, he is currently on beta-evin therapy and valsartan, ejection fraction historically has been 45%. Follow-up echocardiogram is scheduled 3-type II diabetes on medical therapy managed by PCP, no recent lab data were available for my review. Reminded patient to continue to work on controlling his weight, low carbohydrate and low calorie diet. 4-hyperlipidemia on rosuvastatin, lipid profile is needed and was ordered 5-class II obesity, encouraged weight loss with diet and exercise. ROS Review of system essentially normal Vitals: 04/10/25 1352 BP: 136/76 BP Location: Left arm Patient Position: Sitting Pulse: 80 Weight: 93.4 kg (206 lb) Height: 1.6 m (5' 3 ) Objective Physical Exam Constitutional: Appearance: Normal appearance. HENT: Nose: Nose normal. Neck: Vascular: No carotid bruit. Cardiovascular: Rate and Rhythm: Normal rate. Pulses: Normal pulses. Heart sounds: Normal heart sounds. Pulmonary: Effort: Pulmonary effort is normal. Abdominal: General: Bowel sounds are normal. Palpations: Abdomen is soft. Musculoskeletal: General: Normal range of motion. Cervical back: Normal range of motion. Right lower leg: No edema. Left lower leg: No edema. Skin: General: Skin is warm and dry. Neurological: General: No focal deficit present. Mental Status: He is alert. Psychiatric: Mood and Affect: Mood normal. Behavior: Behavior normal. Thought Content: Thought content normal. Judgment: Judgment normal. Allergies Glipizide Current Medications Current Outpatient Medications Medication Instructions aspirin 81 mg EC tablet 1 tablet, Daily Farxiga 10 mg, Daily glimepiride (AMARYL) 2 mg, Daily before breakfast metFORMIN (Glucophage) 500 mg tablet 1 tablet, Every 12 hours metoprolol succinate XL (TOPROL-XL) 50 mg, oral, Daily, Do not crush or chew. nitroglycerin (NITROSTAT) 0.4 mg, sublingual, Every 5 min PRN, May repeat dose every 5 minutes for up to 3 doses total. omega 5-tyt-yjs-fish oil (Fish OiL) 1,000 (120-180) mg capsule Take by mouth. rosuvastatin (CRESTOR) 20 mg, oral, Daily valsartan (DIOVAN) 80 mg, oral, Daily Assessment/Plan 1. 3-vessel coronary artery disease Follow Up In Cardiology Transthoracic Echo Complete Follow Up In Cardiology CBC Basic Metabolic Panel CBC Basic Metabolic Panel 2. Cardiomyopathy, unspecified type (Multi) Transthoracic Echo Complete CBC Basic Metabolic Panel CBC Basic Metabolic Panel 3. Hyperlipidemia, unspecified hyperlipidemia type Transthoracic Echo Complete Alanine Aminotransferase Aspartate Aminotransferase Lipid Panel Alanine Aminotransferase Aspartate Aminotransferase Lipid Panel 4. Diabetes mellitus of other type without complication, unspecified whether alf insulin use Transthoracic Echo Complete CBC Basic Metabolic Panel CBC Basic Metabolic Panel 5. Never smoked any substance 6. BMI 36.0-36.9,adult Scribe Attestation By signing my name below, I, Sujata Villeda RN , Scribe attest that this documentation has been prepared under the direction and in the presence of Yohan Sadler MD. Provider Attestation - Scribe documentation All medical record entries made by the Scribe were at my direction and personally dictated by me. I have reviewed the chart and agree that the record accurately reflects my personal performance of the history, physical exam, discussion and plan. documented in this encounter [facility] Work Phone: 04-10-2025 Instructions Sujata Bermudez RN - 04/10/2025 1:50 PM EDT Please bring all medicines, vitamins, and herbal supplements with you when you come to the office. Prescriptions will not be filled unless you are compliant with your follow up appointments or have a follow up appointment scheduled as per instruction of your physician. Refills should be requested at the time of your visit. BMI was above normal measurement. Current weight: 93.4 kg (206 lb) Weight change since last visit (-) denotes wt loss 2 lbs Weight loss needed to achieve BMI 25: 65.2 Lbs Weight loss needed to achieve BMI 30: 37 Lbs Provided instructions on dietary changes Provided instructions on exercise. documented in this encounter [facility] Work Phone: 04-07-2025 Note Time Out 04/07/2025. 11:24 AM. Confirmed correct patient, procedure, site, and patient consented. Anesthesia Topical anesthesia was used. Anesthetic medications included Lidocaine 2%, Proparacaine 0.5%. Procedure Preparation included 5% betadine to ocular surface, eyelid speculum. A 30 gauge needle was used. Injection: 1.25 mg Bevacizumab 1.25 MG/0.05ML Route: Intravitreal, Site: Right Eye [facility]: [address]-0, Lot: [id number], Expiration date: 05/08/2025 Post-op Post injection exam found visual acuity of at least counting fingers, no retinal detachment, perfused optic nerve. The patient tolerated the procedure well. There were no complications. The patient received written and verbal post procedure care education. Post injection medications were not given. Notes Intravitreal antiVEGF Treatment: Risks, benefits and alternatives were discussed for Intravitreal injection with the prescribed antiVEGF agent. With intraocular surgery, there is potential for direct retinal damage through retinal or RPE tear, or infection, with subsequent vision loss. Informative Intravitreal pamphlet provided as well as an OMIC consent. Of course, the treatment may fail to accomplish the overall therapeutic objectives, which is to stall or decrease the amount of retinal edema / bleeding, and therefore stall or improve vision loss. Intravitreal Anti-VEGF: Consent was obtained and questions answered. Operative eye was identified, receiving topical proparacaine, 5% betadine, and 2% xylocaine jelly. A lid speculum was placed and the inferotemp. injection site received additional anesthetic with a proparacaine soaked cotton swab. Using calipers (set at 3.5mm for pseudo and 4mm for phakic), the inferotemp. limbus was measured, sclera marked and 2 additional drops of betadine placed. Avoiding any talking to avoid contamination, intravitreal injection was carried out without difficulty. Any residual amount of medication was discarded appropriately. The patient tolerated the procedure well and instructed to call with increased pain, redness, decreased vision or concerns. [facility] 04-07-2025 Note Right Eye Quality was good. Scan locations included subfoveal. Progression has been stable. Findings include abnormal foveal contour. Left Eye Quality was good. Scan locations included subfoveal. Progression has been stable. Findings include abnormal foveal contour, epiretinal membrane. Notes Increased macular volume both eyes (OU). Stable. [facility] 04-07-2025 History of Present illness Narrative Images from the original note were not included. Assessment/Plan Diagnoses and all orders for this visit: 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 (HCC) - OCT, Retina - OU - Both Eyes - Intravitreal Injection, Pharmacologic Agent - OD - Right Eye - Bevacizumab solution prefilled syringe 1.25 mg OCT, Retina - OU - Both Eyes Right Eye Quality was good. Scan locations included subfoveal. Progression has been stable. Findings include abnormal foveal contour. Left Eye Quality was good. Scan locations included subfoveal. Progression has been stable. Findings include abnormal foveal contour, epiretinal membrane. Notes Increased macular volume both eyes (OU). Stable. Linked Images Intravitreal Injection, Pharmacologic Agent - OD - Right Eye Time Out 04/07/2025. 11:24 AM. Confirmed correct patient, procedure, site, and patient consented. Anesthesia Topical anesthesia was used. Anesthetic medications included Lidocaine 2%, Proparacaine 0.5%. Procedure Preparation included 5% betadine to ocular surface, eyelid speculum. A 30 gauge needle was used. Injection: 1.25 mg Bevacizumab 1.25 MG/0.05ML Route: Intravitreal, Site: Right Eye [facility]: [address]-3, Lot: [id number], Expiration date: 05/08/2025 Post-op Post injection exam found visual acuity of at least counting fingers, no retinal detachment, perfused optic nerve. The patient tolerated the procedure well. There were no complications. The patient received written and verbal post procedure care education. Post injection medications were not given. Notes Intravitreal antiVEGF Treatment: Risks, benefits and alternatives were discussed for Intravitreal injection with the prescribed antiVEGF agent. With intraocular surgery, there is potential for direct retinal damage through retinal or RPE tear, or infection, with subsequent vision loss. Informative Intravitreal pamphlet provided as well as an OMIC consent. Of course, the treatment may fail to accomplish the overall therapeutic objectives, which is to stall or decrease the amount of retinal edema / bleeding, and therefore stall or improve vision loss. Intravitreal Anti-VEGF: Consent was obtained and questions answered. Operative eye was identified, receiving topical proparacaine, 5% betadine, and 2% xylocaine jelly. A lid speculum was placed and the inferotemp. injection site received additional anesthetic with a proparacaine soaked cotton swab. Using calipers (set at 3.5mm for pseudo and 4mm for phakic), the inferotemp. limbus was measured, sclera marked and 2 additional drops of betadine placed. Avoiding any talking to avoid contamination, intravitreal injection was carried out without difficulty. Any residual amount of medication was discarded appropriately. The patient tolerated the procedure well and instructed to call with increased pain, redness, decreased vision or concerns. documented in this encounter [facility] 03-07-2025 Note Time Out 03/07/2025. 10:30 AM. Confirmed correct patient, procedure, site, and patient consented. Anesthesia Topical anesthesia was used. Anesthetic medications included Lidocaine 2%, Proparacaine 0.5%. Procedure Preparation included 5% betadine to ocular surface, eyelid speculum. Injection: 1.25 mg Bevacizumab 1.25 MG/0.05ML Route: Intravitreal, Site: Left Eye [facility]: [address]-8, Lot: [id number], Expiration date: 04/02/2025 Post-op Post injection exam found visual acuity of at least counting fingers, no retinal detachment, perfused optic nerve. The patient tolerated the procedure well. There were no complications. The patient received written and verbal post procedure care education. Post injection medications were not given. Notes Intravitreal antiVEGF Treatment: Risks, benefits and alternatives were discussed for Intravitreal injection with the prescribed antiVEGF agent. With intraocular surgery, there is potential for direct retinal damage through retinal or RPE tear, or infection, with subsequent vision loss. Informative Intravitreal pamphlet provided as well as an OMIC consent. Of course, the treatment may fail to accomplish the overall therapeutic objectives, which is to stall or decrease the amount of retinal edema / bleeding, and therefore stall or improve vision loss. Intravitreal Anti-VEGF: Consent was obtained and questions answered. Operative eye was identified, receiving topical proparacaine, 5% betadine, and 2% xylocaine jelly. A lid speculum was placed and the inferotemp. injection site received additional anesthetic with a proparacaine soaked cotton swab. Using calipers (set at 3.5mm for pseudo and 4mm for phakic), the inferotemp. limbus was measured, sclera marked and 2 additional drops of betadine placed. Avoiding any talking to avoid contamination, intravitreal injection was carried out without difficulty. Any residual amount of medication was discarded appropriately. The patient tolerated the procedure well and instructed to call with increased pain, redness, decreased vision or concerns. [facility] 03-07-2025 History of Present illness Narrative Images from the original note were not included. 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 10:30 AM. Confirmed correct patient, procedure, site, and patient consented. Anesthesia Topical anesthesia was used. Anesthetic medications included Lidocaine 2%, Proparacaine 0.5%. Procedure Preparation included 5% betadine to ocular surface, eyelid speculum. Injection: 1.25 mg Bevacizumab 1.25 MG/0.05ML Route: Intravitreal, Site: Left Eye [facility]: [address]-6, Lot: [id number], Expiration date: 04/02/2025 Post-op Post injection exam found visual acuity of at least counting fingers, no retinal detachment, perfused optic nerve. The patient tolerated the procedure well. There were no complications. The patient received written and verbal post procedure care education. Post injection medications were not given. Notes Intravitreal antiVEGF Treatment: Risks, benefits and alternatives were discussed for Intravitreal injection with the prescribed antiVEGF agent. With intraocular surgery, there is potential for direct retinal damage through retinal or RPE tear, or infection, with subsequent vision loss. Informative Intravitreal pamphlet provided as well as an OMIC consent. Of course, the treatment may fail to accomplish the overall therapeutic objectives, which is to stall or decrease the amount of retinal edema / bleeding, and therefore stall or improve vision loss. Intravitreal Anti-VEGF: Consent was obtained and questions answered. Operative eye was identified, receiving topical proparacaine, 5% betadine, and 2% xylocaine jelly. A lid speculum was placed and the inferotemp. injection site received additional anesthetic with a proparacaine soaked cotton swab. Using calipers (set at 3.5mm for pseudo and 4mm for phakic), the inferotemp. limbus was measured, sclera marked and 2 additional drops of betadine placed. Avoiding any talking to avoid contamination, intravitreal injection was carried out without difficulty. Any residual amount of medication was discarded appropriately. The patient tolerated the procedure well and instructed to call with increased pain, redness, decreased vision or concerns. documented in this encounter [facility] 02-22-2025 History of Present illness Narrative Associated Problem(s): Diabetes mellitus type 2 with complications (HCC) HTN, Retinopathy, nephropathy Associated Problem(s): CKD stage 3b, GFR 30-44 ml/min ([facility]) Will see if can get SGLT 2 or possible GLP 1 med Check US check other labs for kidneys Pt last seen in office 10/20/24 IRREGULAR HEART RATE: metoprolol succinate xl 50mg TYPE 2 DIABETES: farxiga 10mg HYPERLIPEMIA: rosuvastatin and fish oil 2g BID CORONARY ARTERY DISEASE w/o angina pectoris: valsartan 80mg farxiga 10mg HYPERTENSION: metoprolol & valsartan Does not check BP at home-given record log TYPE 2 DM w/o COMPLICATION: Metformin 500mg BID & Glimepiride 2mg daily Kidney function decreased to 45 pt was changed to farxiga in place of metformin Glucose range 125-130 A1c 6.7% 10/2024 Pt unable to take the farxiga due to cost $1800 Glucose ranges between 126-130 Images from the original note were not included. Gian Sandoval is a 64 y.o. male presents with chief complaint of Diabetes HPI: Diabetes He presents for his follow-up diabetic visit. He has type 2 diabetes mellitus. His disease course has been worsening. There are no hypoglycemic associated symptoms. Pertinent negatives for hypoglycemia include no dizziness, nervousness/anxiousness, seizures or tremors. Associated symptoms include polydipsia, polyuria and visual change. Pertinent negatives for diabetes include no chest pain, no foot paresthesias and no polyphagia. There are no hypoglycemic complications. Diabetic complications include nephropathy and retinopathy. Pertinent negatives for diabetic complications include no CVA, heart disease, peripheral neuropathy or PVD. Risk factors for coronary artery disease include diabetes mellitus, dyslipidemia, hypertension, male sex and obesity. Current diabetic treatment includes oral agent (dual therapy). His weight is stable. His overall blood glucose range is 110-130 mg/dl. An TC inhibitor/angiotensin II receptor evin is being taken. He does not see a [employer]Eye exam is current. Hypertension This is a chronic problem. The current episode started more than 1 year ago. The problem is unchanged. The problem is controlled. Pertinent negatives include no anxiety, chest pain, palpitations, peripheral edema or shortness of breath. There are no associated agents to hypertension. Risk factors for coronary artery disease include diabetes mellitus, dyslipidemia, male gender and obesity. Past treatments include beta blockers and angiotensin blockers. The current treatment provides moderate improvement. Hypertensive end-organ damage includes retinopathy. There is no history of CAD/MT, CVA, heart failure or PVD. SUBJECTIVE: MEDICATIONS: Current Outpatient Medications Medication Instructions aspirin 81 mg, Daily RT dapagliflozin (FARXIGA) 10 mg, Oral, Daily fish oil concentrate 2 g, Oral, 2 times daily glimepiride (AMARYL) 2 mg, Oral, Daily before breakfast ketorolac (Acular) 0.4 % ophthalmic solution 1 drop, Both Eyes, 4 times daily metFORMIN (GLUCOPHAGE) 500 mg, 2 times daily with meals metoprolol succinate XL (TOPROL-XL) 50 mg, Oral, Daily, Do not crush or chew. nitroglycerin (NITROSTAT) 0.4 mg, Sublingual, Every 5 min PRN rosuvastatin (CRESTOR) 20 mg, Oral, Daily True Metrix Blood Glucose Test test strip USE TO CHECK FASTING BLOOD SUGAR EVERY 12 HOURS valsartan (DIOVAN) 80 mg, Oral, Daily ALLERGIES: Allergies Allergen Reactions Glipizide Other Reaction(s): GI Upset REVIEW OF SYMPTOMS: Review of Systems Constitutional: Negative for activity change, appetite change and unexpected weight change. HENT: Negative for ear pain, nosebleeds, sneezing, trouble swallowing and voice change. Eyes: Negative for pain, discharge and visual disturbance. Respiratory: Negative for apnea, chest tightness, shortness of breath and wheezing. Cardiovascular: Negative for chest pain, palpitations and leg swelling. Gastrointestinal: Negative for abdominal distention, blood in stool, constipation and diarrhea. Genitourinary: Negative for decreased urine volume, difficulty urinating, dysuria and hematuria. Skin: Negative for color change. Neurological: Negative for dizziness, tremors and seizures. Psychiatric/Behavioral: Negative for agitation, decreased concentration, hallucinations, self-injury and suicidal ideas. The patient is not nervous/anxious. Hematological: Negative for adenopathy. Does not bruise/bleed easily. Endocrine: Positive for polydipsia and polyuria. Negative for cold intolerance, heat intolerance and polyphagia. Allergic/Immunologic: Negative for environmental allergies and food allergies. PAST MEDICAL HISTORY Past Medical History: Diagnosis Date Cataract Diabetes mellitus (HCC) Diabetic retinopathy (HCC) Past Surgical History: Procedure Laterality Date CATARACT EXTRACTION Bilateral 2023 Dr. Solis family history includes Cataracts in his father; Diabetes in his mother; Hypertension in his mother. OBJECTIVE: Visit Vitals Wt 204 lb 6.4 oz BMI 35.09 kg/m Smoking Status Former BSA 2.05 m Physical Exam Vitals and nursing note reviewed. Constitutional: Appearance: Normal appearance. He is obese. He is not ill-appearing. HENT: Head: Normocephalic. Right Ear: External ear normal. Left Ear: External ear normal. Nose: Nose normal. Mouth/Throat: Mouth: Mucous membranes are moist. Pharynx: Oropharynx is clear. Eyes: Extraocular Movements: Extraocular movements intact. Conjunctiva/sclera: Conjunctivae normal. Neck: Vascular: No carotid bruit. Cardiovascular: Rate and Rhythm: Normal rate and regular rhythm. Pulses: Normal pulses. Heart sounds: Normal heart sounds. No murmur heard. Pulmonary: Effort: Pulmonary effort is normal. Breath sounds: Normal breath sounds. No wheezing or rhonchi. Abdominal: General: Bowel sounds are normal. Palpations: Abdomen is soft. There is no mass. Tenderness: There is no abdominal tenderness. Musculoskeletal: Cervical back: Neck supple. Right lower leg: No edema. Left lower leg: No edema. Lymphadenopathy: Cervical: No cervical adenopathy. Skin: General: Skin is warm and dry. Capillary Refill: Capillary refill takes 2 to 3 seconds. Neurological: General: No focal deficit present. Mental Status: He is alert. Psychiatric: Mood and Affect: Mood normal. Behavior: Behavior normal. Thought Content: Thought content normal. Judgment: Judgment normal. ASSESSMENT AND PLAN: No follow-ups on file. Problem List Items Addressed This Visit Hyperlipemia On statin and fish oil Check labs yearly and prn dose changes 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 Statin, asa, arb, b evin Primary hypertension Please check blood pressure daily and record DASH diet Limit caffeine Take medication as directed Contact office if chest pain, pressure, dizziness, shortness of breath, swelling legs Recommend slow position changes Current meds: b evin, and arb Moderate nonproliferative diabetic retinopathy of both eyes with macular edema associated with type 2 diabetes mellitus (HCC) - Primary Continue w opth. Recommend good diabetes control Type 2 diabetes mellitus without complication, without long-term current use of insulin (HCC) Check blood sugars daily, notify if <70 or >200. Take medications (pills or insulin) as directed. Monitor for s/s of hypoglycemia (sweaty, dizziness, nausea, vomiting, or shakiness). Watch for increase in thirst, urination, or appetite. Inspect feet frequently monitoring for open wounds , and also recommend yearly eye exam. Pt should attempt to remain as physically active as chronic conditions allow, as well as trying to follow a diet low in carbohydrates, and simple sugars. Current meds: asa, fish oil, MCKNIGHT, statin, arb, metformin A1c: 7.5% 02/22/25 6.7% on 10/07/24 Relevant Orders POCT glycosylated hemoglobin (Hb A1C) docked device (Completed) CKD stage 3b, GFR 30-44 ml/min ([facility] [place]) Will see if can get SGLT 2 or possible GLP 1 med Check US check other labs for kidneys Relevant Orders US renal complete Basic metabolic panel PTH, intact Urinalysis with reflex microscopic (clean catch) Microalbumin / creatinine, urine ratio Diabetes mellitus type 2 with complications (HCC) HTN, Retinopathy, nephropathy Associated Problem(s): 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 Statin, asa, arb, b evin Associated Problem(s): Primary hypertension Please check blood pressure daily and record DASH diet Limit caffeine Take medication as directed Contact office if chest pain, pressure, dizziness, shortness of breath, swelling legs Recommend slow position changes Current meds: b evin, and arb Associated Problem(s): Hyperlipemia On statin and fish oil Check labs yearly and prn dose changes Associated Problem(s): Type 2 diabetes mellitus without complication, without long-term current use of insulin (HCC) Check blood sugars daily, notify if <70 or >200. Take medications (pills or insulin) as directed. Monitor for s/s of hypoglycemia (sweaty, dizziness, nausea, vomiting, or shakiness). Watch for increase in thirst, urination, or appetite. Inspect feet frequently monitoring for open wounds , and also recommend yearly eye exam. Pt should attempt to remain as physically active as chronic conditions allow, as well as trying to follow a diet low in carbohydrates, and simple sugars. Current meds: asa, fish oil, MCKNIGHT, statin, arb, metformin A1c: 7.5% 02/22/25 6.7% on 10/07/24 Associated Problem(s): Moderate nonproliferative diabetic retinopathy of both eyes with macular edema associated with type 2 diabetes mellitus (HCC) Continue w opth. Recommend good diabetes control documented in this encounter [facility] 02-22-2025 Instructions Francisca Quintana NP - 02/22/2025 6:00 PM EDT CKD stage 3b N18.32, type 2 diabetes with complications E11.8 Farxiga (5mg or 10mg) , Jardiance (10mg or 25mg) Ozempic GLP 1 injectable only one with indication for Diabetes AND CKD!! No to trulicity: no indication with CKD and no mounjaro: no indication for CKD CGM device: Dexcom and Free style fabian plus 3 device documented in this encounter [facility] 02-21-2025 Note Time Out 02/21/2025. 10:12 AM. Confirmed correct patient, procedure, site, and patient consented. Anesthesia Topical anesthesia was used. Anesthetic medications included Lidocaine 2%, Proparacaine 0.5%. Procedure Preparation included 5% betadine to ocular surface, eyelid speculum. A 30 gauge needle was used. Injection: 1.25 mg Bevacizumab 1.25 MG/0.05ML Route: Intravitreal, Site: Right Eye ND: [id number], Lot: [id number], Expiration date: 04/02/2025 Post-op Post injection exam found visual acuity of at least counting fingers, no retinal detachment, perfused optic nerve. The patient tolerated the procedure well. There were no complications. The patient received written and verbal post procedure care education. Post injection medications were not given. Notes Intravitreal antiVEGF Treatment: Risks, benefits and alternatives were discussed for Intravitreal injection with the prescribed antiVEGF agent. With intraocular surgery, there is potential for direct retinal damage through retinal or RPE tear, or infection, with subsequent vision loss. Informative Intravitreal pamphlet provided as well as an OMIC consent. Of course, the treatment may fail to accomplish the overall therapeutic objectives, which is to stall or decrease the amount of retinal edema / bleeding, and therefore stall or improve vision loss. Intravitreal Anti-VEGF: Consent was obtained and questions answered. Operative eye was identified, receiving topical proparacaine, 5% betadine, and 2% xylocaine jelly. A lid speculum was placed and the inferotemp. injection site received additional anesthetic with a proparacaine soaked cotton swab. Using calipers (set at 3.5mm for pseudo and 4mm for phakic), the inferotemp. limbus was measured, sclera marked and 2 additional drops of betadine placed. Avoiding any talking to avoid contamination, intravitreal injection was carried out without difficulty. Any residual amount of medication was discarded appropriately. The patient tolerated the procedure well and instructed to call with increased pain, redness, decreased vision or concerns. [facility] 02-21-2025 Note Right Eye Quality was poor. Scan locations included subfoveal. Progression has been stable. Findings include abnormal foveal contour, intraretinal fluid. Left Eye Quality was poor. Scan locations included subfoveal. Progression has been stable. Findings include abnormal foveal contour, intraretinal fluid. [facility] 02-21-2025 History of Present illness Narrative Images from the original note were not included. Assessment/Plan Diagnoses and all orders for this visit: 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 (HCC) - OCT, Retina - OU - Both Eyes - Intravitreal Injection, Pharmacologic Agent - OD - Right Eye - Bevacizumab solution prefilled syringe 1.25 mg OCT, Retina - OU - Both Eyes Right Eye Quality was poor. Scan locations included subfoveal. Progression has been stable. Findings include abnormal foveal contour, intraretinal fluid. Left Eye Quality was poor. Scan locations included subfoveal. Progression has been stable. Findings include abnormal foveal contour, intraretinal fluid. Linked Images Intravitreal Injection, Pharmacologic Agent - OD - Right Eye Time Out 02/21/2025. 10:12 AM. Confirmed correct patient, procedure, site, and patient consented. Anesthesia Topical anesthesia was used. Anesthetic medications included Lidocaine 2%, Proparacaine 0.5%. Procedure Preparation included 5% betadine to ocular surface, eyelid speculum. A 30 gauge needle was used. Injection: 1.25 mg Bevacizumab 1.25 MG/0.05ML Route: Intravitreal, Site: Right Eye ND: [id number], Lot: [id number], Expiration date: 04/02/2025 Post-op Post injection exam found visual acuity of at least counting fingers, no retinal detachment, perfused optic nerve. The patient tolerated the procedure well. There were no complications. The patient received written and verbal post procedure care education. Post injection medications were not given. Notes Intravitreal antiVEGF Treatment: Risks, benefits and alternatives were discussed for Intravitreal injection with the prescribed antiVEGF agent. With intraocular surgery, there is potential for direct retinal damage through retinal or RPE tear, or infection, with subsequent vision loss. Informative Intravitreal pamphlet provided as well as an OMIC consent. Of course, the treatment may fail to accomplish the overall therapeutic objectives, which is to stall or decrease the amount of retinal edema / bleeding, and therefore stall or improve vision loss. Intravitreal Anti-VEGF: Consent was obtained and questions answered. Operative eye was identified, receiving topical proparacaine, 5% betadine, and 2% xylocaine jelly. A lid speculum was placed and the inferotemp. injection site received additional anesthetic with a proparacaine soaked cotton swab. Using calipers (set at 3.5mm for pseudo and 4mm for phakic), the inferotemp. limbus was measured, sclera marked and 2 additional drops of betadine placed. Avoiding any talking to avoid contamination, intravitreal injection was carried out without difficulty. Any residual amount of medication was discarded appropriately. The patient tolerated the procedure well and instructed to call with increased pain, redness, decreased vision or concerns. documented in this encounter [facility] 01-17-2025 Note Time Out 01/17/2025. 10:45 AM. Confirmed correct patient, procedure, site, and patient consented. Anesthesia Topical anesthesia was used. Anesthetic medications included Lidocaine 2%, Proparacaine 0.5%. Procedure Preparation included 5% betadine to ocular surface, eyelid speculum. Injection: 1.25 mg Bevacizumab 1.25 MG/0.05ML Route: Intravitreal, Site: Left Eye [facility]: [address]-8, Lot: [id number], Expiration date: 04/02/2025 Post-op Post injection exam found visual acuity of at least counting fingers, no retinal detachment, perfused optic nerve. The patient tolerated the procedure well. There were no complications. The patient received written and verbal post procedure care education. Post injection medications were not given. Notes Intravitreal antiVEGF Treatment: Risks, benefits and alternatives were discussed for Intravitreal injection with the prescribed antiVEGF agent. With intraocular surgery, there is potential for direct retinal damage through retinal or RPE tear, or infection, with subsequent vision loss. Informative Intravitreal pamphlet provided as well as an OMIC consent. Of course, the treatment may fail to accomplish the overall therapeutic objectives, which is to stall or decrease the amount of retinal edema / bleeding, and therefore stall or improve vision loss. Intravitreal Anti-VEGF: Consent was obtained and questions answered. Operative eye was identified, receiving topical proparacaine, 5% betadine, and 2% xylocaine jelly. A lid speculum was placed and the inferotemp. injection site received additional anesthetic with a proparacaine soaked cotton swab. Using calipers (set at 3.5mm for pseudo and 4mm for phakic), the inferotemp. limbus was measured, sclera marked and 2 additional drops of betadine placed. Avoiding any talking to avoid contamination, intravitreal injection was carried out without difficulty. Any residual amount of medication was discarded appropriately. The patient tolerated the procedure well and instructed to call with increased pain, redness, decreased vision or concerns. [facility] 01-17-2025 History of Present illness Narrative Images from the original note were not included. 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 10:45 AM. Confirmed correct patient, procedure, site, and patient consented. Anesthesia Topical anesthesia was used. Anesthetic medications included Lidocaine 2%, Proparacaine 0.5%. Procedure Preparation included 5% betadine to ocular surface, eyelid speculum. Injection: 1.25 mg Bevacizumab 1.25 MG/0.05ML Route: Intravitreal, Site: Left Eye [facility]: [id number], Lot: [id number], Expiration date: 04/02/2025 Post-op Post injection exam found visual acuity of at least counting fingers, no retinal detachment, perfused optic nerve. The patient tolerated the procedure well. There were no complications. The patient received written and verbal post procedure care education. Post injection medications were not given. Notes Intravitreal antiVEGF Treatment: Risks, benefits and alternatives were discussed for Intravitreal injection with the prescribed antiVEGF agent. With intraocular surgery, there is potential for direct retinal damage through retinal or RPE tear, or infection, with subsequent vision loss. Informative Intravitreal pamphlet provided as well as an OMIC consent. Of course, the treatment may fail to accomplish the overall therapeutic objectives, which is to stall or decrease the amount of retinal edema / bleeding, and therefore stall or improve vision loss. Intravitreal Anti-VEGF: Consent was obtained and questions answered. Operative eye was identified, receiving topical proparacaine, 5% betadine, and 2% xylocaine jelly. A lid speculum was placed and the inferotemp. injection site received additional anesthetic with a proparacaine soaked cotton swab. Using calipers (set at 3.5mm for pseudo and 4mm for phakic), the inferotemp. limbus was measured, sclera marked and 2 additional drops of betadine placed. Avoiding any talking to avoid contamination, intravitreal injection was carried out without difficulty. Any residual amount of medication was discarded appropriately. The patient tolerated the procedure well and instructed to call with increased pain, redness, decreased vision or concerns. documented in this encounter [facility] 01-10-2025 Note Time Out 01/10/2025. 9:49 AM. Confirmed correct patient, procedure, site, and patient consented. Anesthesia Topical anesthesia was used. Anesthetic medications included Lidocaine 2%, Proparacaine 0.5%. Procedure Preparation included 5% betadine to ocular surface, eyelid speculum. A 30 gauge needle was used. Injection: 1.25 mg Bevacizumab 1.25 MG/0.05ML Route: Intravitreal, Site: Right Eye [facility]: [address]-3, Lot: [id number], Expiration date: 07/18/2025 Post-op Post injection exam found visual acuity of at least counting fingers, no retinal detachment, perfused optic nerve. The patient tolerated the procedure well. There were no complications. The patient received written and verbal post procedure care education. Post injection medications were not given. Notes Intravitreal antiVEGF Treatment: Risks, benefits and alternatives were discussed for Intravitreal injection with the prescribed antiVEGF agent. With intraocular surgery, there is potential for direct retinal damage through retinal or RPE tear, or infection, with subsequent vision loss. Informative Intravitreal pamphlet provided as well as an OMIC consent. Of course, the treatment may fail to accomplish the overall therapeutic objectives, which is to stall or decrease the amount of retinal edema / bleeding, and therefore stall or improve vision loss. Intravitreal Anti-VEGF: Consent was obtained and questions answered. Operative eye was identified, receiving topical proparacaine, 5% betadine, and 2% xylocaine jelly. A lid speculum was placed and the inferotemp. injection site received additional anesthetic with a proparacaine soaked cotton swab. Using calipers (set at 3.5mm for pseudo and 4mm for phakic), the inferotemp. limbus was measured, sclera marked and 2 additional drops of betadine placed. Avoiding any talking to avoid contamination, intravitreal injection was carried out without difficulty. Any residual amount of medication was discarded appropriately. The patient tolerated the procedure well and instructed to call with increased pain, redness, decreased vision or concerns. [facility] 01-10-2025 Note Right Eye Quality was good. Scan locations included subfoveal. Progression has improved. Findings include epiretinal membrane, intraretinal fluid. Left Eye Quality was good. Scan locations included subfoveal. Progression has been stable. Findings include epiretinal membrane, intraretinal fluid. [facility] 01-10-2025 History of Present illness Narrative Images from the original note were not included. 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 Scan locations included subfoveal. Progression has improved. Findings include epiretinal membrane, intraretinal fluid. Left Eye Quality was good. Scan locations included subfoveal. Progression has been stable. Findings include epiretinal membrane, intraretinal fluid. Linked Images Intravitreal Injection, Pharmacologic Agent - OD - Right Eye Time Out 01/10/2025. 9:49 AM. Confirmed correct patient, procedure, site, and patient consented. Anesthesia Topical anesthesia was used. Anesthetic medications included Lidocaine 2%, Proparacaine 0.5%. Procedure Preparation included 5% betadine to ocular surface, eyelid speculum. A 30 gauge needle was used. Injection: 1.25 mg Bevacizumab 1.25 MG/0.05ML Route: Intravitreal, Site: Right Eye [facility]: [address]-9, Lot: [id number], Expiration date: 07/18/2025 Post-op Post injection exam found visual acuity of at least counting fingers, no retinal detachment, perfused optic nerve. The patient tolerated the procedure well. There were no complications. The patient received written and verbal post procedure care education. Post injection medications were not given. Notes Intravitreal antiVEGF Treatment: Risks, benefits and alternatives were discussed for Intravitreal injection with the prescribed antiVEGF agent. With intraocular surgery, there is potential for direct retinal damage through retinal or RPE tear, or infection, with subsequent vision loss. Informative Intravitreal pamphlet provided as well as an OMIC consent. Of course, the treatment may fail to accomplish the overall therapeutic objectives, which is to stall or decrease the amount of retinal edema / bleeding, and therefore stall or improve vision loss. Intravitreal Anti-VEGF: Consent was obtained and questions answered. Operative eye was identified, receiving topical proparacaine, 5% betadine, and 2% xylocaine jelly. A lid speculum was placed and the inferotemp. injection site received additional anesthetic with a proparacaine soaked cotton swab. Using calipers (set at 3.5mm for pseudo and 4mm for phakic), the inferotemp. limbus was measured, sclera marked and 2 additional drops of betadine placed. Avoiding any talking to avoid contamination, intravitreal injection was carried out without difficulty. Any residual amount of medication was discarded appropriately. The patient tolerated the procedure well and instructed to call with increased pain, redness, decreased vision or concerns. documented in this encounter [facility] 12-13-2024 Note Time Out 12/13/2024. 9:31 AM. Confirmed correct patient, procedure, site, and patient consented. Anesthesia Topical anesthesia was used. Anesthetic medications included Lidocaine 2%, Proparacaine 0.5%. Procedure Preparation included 5% betadine to ocular surface, eyelid speculum. Injection: 1.25 mg Bevacizumab 1.25 MG/0.05ML Route: Intravitreal, Site: Left Eye [facility]: [address]-3, Lot: [id number], Expiration date: 01/31/2025 Post-op Post injection exam found visual acuity of at least counting fingers, no retinal detachment, perfused optic nerve. The patient tolerated the procedure well. There were no complications. The patient received written and verbal post procedure care education. Post injection medications were not given. Notes Intravitreal antiVEGF Treatment: Risks, benefits and alternatives were discussed for Intravitreal injection with the prescribed antiVEGF agent. With intraocular surgery, there is potential for direct retinal damage through retinal or RPE tear, or infection, with subsequent vision loss. Informative Intravitreal pamphlet provided as well as an OMIC consent. Of course, the treatment may fail to accomplish the overall therapeutic objectives, which is to stall or decrease the amount of retinal edema / bleeding, and therefore stall or improve vision loss. Intravitreal Anti-VEGF: Consent was obtained and questions answered. Operative eye was identified, receiving topical proparacaine, 5% betadine, and 2% xylocaine jelly. A lid speculum was placed and the inferotemp. injection site received additional anesthetic with a proparacaine soaked cotton swab. Using calipers (set at 3.5mm for pseudo and 4mm for phakic), the inferotemp. limbus was measured, sclera marked and 2 additional drops of betadine placed. Avoiding any talking to avoid contamination, intravitreal injection was carried out without difficulty. Any residual amount of medication was discarded appropriately. The patient tolerated the procedure well and instructed to call with increased pain, redness, decreased vision or concerns. [facility] 12-13-2024 History of Present illness Narrative Images from the original note were not included. Assessment/Plan Diagnoses and all orders for this visit: 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 ([facility] [place]) - Intravitreal Injection, Pharmacologic Agent - OS - Left Eye - Bevacizumab solution prefilled syringe 1.25 mg Intravitreal Injection, Pharmacologic Agent - OS - Left Eye Time Out 12/13/2024. 9:31 AM. Confirmed correct patient, procedure, site, and patient consented. Anesthesia Topical anesthesia was used. Anesthetic medications included Lidocaine 2%, Proparacaine 0.5%. Procedure Preparation included 5% betadine to ocular surface, eyelid speculum. Injection: 1.25 mg Bevacizumab 1.25 MG/0.05ML Route: Intravitreal, Site: Left Eye [facility]: [address]-5, Lot: [id number], Expiration date: 01/31/2025 Post-op Post injection exam found visual acuity of at least counting fingers, no retinal detachment, perfused optic nerve. The patient tolerated the procedure well. There were no complications. The patient received written and verbal post procedure care education. Post injection medications were not given. Notes Intravitreal antiVEGF Treatment: Risks, benefits and alternatives were discussed for Intravitreal injection with the prescribed antiVEGF agent. With intraocular surgery, there is potential for direct retinal damage through retinal or RPE tear, or infection, with subsequent vision loss. Informative Intravitreal pamphlet provided as well as an OMIC consent. Of course, the treatment may fail to accomplish the overall therapeutic objectives, which is to stall or decrease the amount of retinal edema / bleeding, and therefore stall or improve vision loss. Intravitreal Anti-VEGF: Consent was obtained and questions answered. Operative eye was identified, receiving topical proparacaine, 5% betadine, and 2% xylocaine jelly. A lid speculum was placed and the inferotemp. injection site received additional anesthetic with a proparacaine soaked cotton swab. Using calipers (set at 3.5mm for pseudo and 4mm for phakic), the inferotemp. limbus was measured, sclera marked and 2 additional drops of betadine placed. Avoiding any talking to avoid contamination, intravitreal injection was carried out without difficulty. Any residual amount of medication was discarded appropriately. The patient tolerated the procedure well and instructed to call with increased pain, redness, decreased vision or concerns. documented in this encounter [facility] 12-06-2024 Note Right Eye Quality was good. Scan locations included subfoveal. Progression has been stable. Findings include abnormal foveal contour, epiretinal membrane, intraretinal fluid. Left Eye Quality was good. Scan locations included subfoveal. Progression has been stable. Findings include abnormal foveal contour, epiretinal membrane, intraretinal fluid. [facility] 12-06-2024 Note Time Out 12/06/2024. 10:24 AM. Confirmed correct patient, procedure, site, and patient consented. Anesthesia Topical anesthesia was used. Anesthetic medications included Lidocaine 2%, Proparacaine 0.5%. Procedure Preparation included 5% betadine to ocular surface, eyelid speculum. A 30 gauge needle was used. Injection: 1.25 mg Bevacizumab 1.25 MG/0.05ML Route: Intravitreal, Site: Right Eye [facility]: [address]-9, Lot: [id number], Expiration date: 01/31/2025 Post-op Post injection exam found visual acuity of at least counting fingers, no retinal detachment, perfused optic nerve. The patient tolerated the procedure well. There were no complications. The patient received written and verbal post procedure care education. Post injection medications were not given. Notes Intravitreal antiVEGF Treatment: Risks, benefits and alternatives were discussed for Intravitreal injection with the prescribed antiVEGF agent. With intraocular surgery, there is potential for direct retinal damage through retinal or RPE tear, or infection, with subsequent vision loss. Informative Intravitreal pamphlet provided as well as an OMIC consent. Of course, the treatment may fail to accomplish the overall therapeutic objectives, which is to stall or decrease the amount of retinal edema / bleeding, and therefore stall or improve vision loss. Intravitreal Anti-VEGF: Consent was obtained and questions answered. Operative eye was identified, receiving topical proparacaine, 5% betadine, and 2% xylocaine jelly. A lid speculum was placed and the inferotemp. injection site received additional anesthetic with a proparacaine soaked cotton swab. Using calipers (set at 3.5mm for pseudo and 4mm for phakic), the inferotemp. limbus was measured, sclera marked and 2 additional drops of betadine placed. Avoiding any talking to avoid contamination, intravitreal injection was carried out without difficulty. Any residual amount of medication was discarded appropriately. The patient tolerated the procedure well and instructed to call with increased pain, redness, decreased vision or concerns. [facility] 12-06-2024 History of Present illness Narrative Images from the original note were not included. Subjective Patient ID: Gian Sandoval is a 63 y.o. male. Chief Complaint Follow-up; Blurred Vision HPI Blurred Vision In both eyes. Onset was gradual. Vision is difficult to focus. Severity is moderate. Occurring constantly. It is worse throughout the day. Context: reading, watching TV, driving and night driving. Since onset it is gradually worsening. Associated symptoms include glare and haloes. Treatments tried include artificial tears and glasses. Response to treatment was mild improvement. Comments Pt returns for continued maintenance treatment of DME both eyes (OU). Vision is stable since last seen. Doesn't feel a big difference since last exam/treatment. Receives Avastin. Here for continued treatment with Avastin right eye (OD) for diabetes mellitus (DM). Last edited by Gregory Solis DO on 12/06/2024 9:42 AM. Current Outpatient Medications (Ophthalmic Agents) Medication Sig Dispense Refill ketorolac (Acular) 0.4 % ophthalmic solution Administer 1 drop into both eyes in the morning and 1 drop at noon and 1 drop in the evening and 1 drop before bedtime. 5 mL 3 No current facility-administered medications for this visit. (Ophthalmic Agents) Current Outpatient Medications (Other) Medication Sig Dispense Refill aspirin 81 MG EC tablet Take 81 mg by mouth in the morning. dapagliflozin (Farxiga) 10 MG Take 1 tablet (10 mg) by mouth Daily 90 tablet 0 fish oil concentrate ([place]-3) 1000 MG capsule Take 2 capsules (2 g) by mouth in the morning and 2 capsules (2 g) before bedtime. 120 capsule 0 glimepiride (Amaryl) 2 MG tablet Take 1 tablet (2 mg) by mouth in the morning. Take before meals. 90 tablet 0 metoprolol succinate XL (Toprol-XL) 50 MG 24 hr tablet Take 1 tablet (50 mg) by mouth Daily Do not crush or chew. 90 tablet 0 nitroglycerin (Nitrostat) 0.[address] 1 tablet (0.4 mg) under the tongue every 5 (five) minutes if needed for chest pain 30 tablet 0 rosuvastatin (Crestor) 20 MG tablet Take 1 tablet (20 mg) by mouth Daily 90 tablet 0 True Metrix Blood Glucose Test test strip USE TO CHECK FASTING BLOOD SUGAR EVERY 12 HOURS 200 strip 1 valsartan (Diovan) 80 MG tablet Take 1 tablet (80 mg) by mouth Daily 90 tablet 0 No current facility-administered medications for this visit. (Other) Past Medical History: Diagnosis Date Cataract Diabetes mellitus (CMS/HCC) Diabetic retinopathy (CMS/HCC) Allergies Allergen Reactions Glipizide Other Reaction(s): GI Upset Review of Systems Constitutional: Negative. HENT: Negative. Eyes: Negative. Respiratory: Negative. Cardiovascular: Negative. Gastrointestinal: Negative. Genitourinary: Negative. Musculoskeletal: Negative. Skin: Negative. Neurological: Negative. Psychiatric/Behavioral: Negative. Hematological: Negative. Endocrine: Negative. Allergic/Immunologic: Negative. Objective Base Eye Exam Visual Acuity (Snellen - Linear) Right Left Dist cc 20/60- 20/40 -1 Tonometry (Applanation, 9:37 AM) Right Left Pressure 14 14 Pupils Pupils Right PERRL Left PERRL Visual Ambriz Left Right Full Full Extraocular Movement Right Left Full, Ortho Full, Ortho Neuro/Psych Oriented x3: Yes Slit Lamp and Fundus Exam External Exam Right Left External Normal Normal Slit Lamp Exam Right Left Lids/Lashes Blepharitis, Dermatochalasis - upper lid Blepharitis, Dermatochalasis - upper lid Conjunctiva/Sclera White and quiet White and quiet Cornea Decreased tear film Decreased tear film Anterior Chamber Deep and quiet Deep and quiet Iris Round and reactive Round and reactive Lens Posterior chamber intraocular lens, 2+ Posterior capsular opacification Posterior chamber intraocular lens, 2+ Posterior capsular opacification Anterior Vitreous Normal Normal Fundus Exam Right Left Disc Normal Normal Macula Microaneurysms, Epiretinal membrane, Cystoid macular edema Microaneurysms, Intraretinal hemorrhage, Cystoid macular edema, Epiretinal membrane, Exudates Vessels Normal Normal Periphery Normal Normal Refraction Final Rx Sphere Cylinder [place] Dist [place] Add Right -0.75 -0.75 100 20/40+ +2.75 Left -0.25 -1.00 060 20/40- +2.75 Expiration Date: 12/06/2025 Assessment/Plan Diagnoses and all orders for this visit: 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 10:24 AM. Confirmed correct patient, procedure, site, and patient consented. Anesthesia Topical anesthesia was used. Anesthetic medications included Lidocaine 2%, Proparacaine 0.5%. Procedure Preparation included 5% betadine to ocular surface, eyelid speculum. A 30 gauge needle was used. Injection: 1.25 mg Bevacizumab 1.25 MG/0.05ML Route: Intravitreal, Site: Right Eye [facility]: [address]-6, Lot: [id number], Expiration date: 01/31/2025 Post-op Post injection exam found visual acuity of at least counting fingers, no retinal detachment, perfused optic nerve. The patient tolerated the procedure well. There were no complications. The patient received written and verbal post procedure care education. Post injection medications were not given. Notes Intravitreal antiVEGF Treatment: Risks, benefits and alternatives were discussed for Intravitreal injection with the prescribed antiVEGF agent. With intraocular surgery, there is potential for direct retinal damage through retinal or RPE tear, or infection, with subsequent vision loss. Informative Intravitreal pamphlet provided as well as an OMIC consent. Of course, the treatment may fail to accomplish the overall therapeutic objectives, which is to stall or decrease the amount of retinal edema / bleeding, and therefore stall or improve vision loss. Intravitreal Anti-VEGF: Consent was obtained and questions answered. Operative eye was identified, receiving topical proparacaine, 5% betadine, and 2% xylocaine jelly. A lid speculum was placed and the inferotemp. injection site received additional anesthetic with a proparacaine soaked cotton swab. Using calipers (set at 3.5mm for pseudo and 4mm for phakic), the inferotemp. limbus was measured, sclera marked and 2 additional drops of betadine placed. Avoiding any talking to avoid contamination, intravitreal injection was carried out without difficulty. Any residual amount of medication was discarded appropriately. The patient tolerated the procedure well and instructed to call with increased pain, redness, decreased vision or concerns. Bilateral posterior capsular opacification - PCO OU: (Posterior Capsule Opacification) Can be observed without intervention if PCO is not visually significant. Nd:YAG laser capsulotomy may be considered if impairment of vision rises to a level that dose not meet the patient's functional needs or interferes with activities of daily living. Risks, benefits and alternatives to the procedure will be reviewed. If the patient has undergone Nd:YAG laser capsulotomy, they are to notify their bulldozer mechanic promptly if they have a significant change in symptoms, such as flashes of light (photopsia), an increase in floaters, loss of visual field or decrease in visual acuity. documented in this encounter [facility] 11-08-2024 Note Time Out 11/08/2024. 1:33 PM. Confirmed correct patient, procedure, site, and patient consented. Anesthesia Topical anesthesia was used. Anesthetic medications included Lidocaine 2%, Proparacaine 0.5%. Procedure Preparation included 5% betadine to ocular surface, eyelid speculum. Injection: 1.25 mg Bevacizumab 1.25 MG/0.05ML Route: Intravitreal, Site: Left Eye [facility]: [address]-0, Lot: [id number], Expiration date: 07/18/2025 Post-op Post injection exam found visual acuity of at least counting fingers, no retinal detachment, perfused optic nerve. The patient tolerated the procedure well. There were no complications. The patient received written and verbal post procedure care education. Post injection medications were not given. Notes Intravitreal antiVEGF Treatment: Risks, benefits and alternatives were discussed for Intravitreal injection with the prescribed antiVEGF agent. With intraocular surgery, there is potential for direct retinal damage through retinal or RPE tear, or infection, with subsequent vision loss. Informative Intravitreal pamphlet provided as well as an OMIC consent. Of course, the treatment may fail to accomplish the overall therapeutic objectives, which is to stall or decrease the amount of retinal edema / bleeding, and therefore stall or improve vision loss. Intravitreal Anti-VEGF: Consent was obtained and questions answered. Operative eye was identified, receiving topical proparacaine, 5% betadine, and 2% xylocaine jelly. A lid speculum was placed and the inferotemp. injection site received additional anesthetic with a proparacaine soaked cotton swab. Using calipers (set at 3.5mm for pseudo and 4mm for phakic), the inferotemp. limbus was measured, sclera marked and 2 additional drops of betadine placed. Avoiding any talking to avoid contamination, intravitreal injection was carried out without difficulty. Any residual amount of medication was discarded appropriately. The patient tolerated the procedure well and instructed to call with increased pain, redness, decreased vision or concerns. [facility] 11-08-2024 History of Present illness Narrative Images from the original note were not included. Assessment/Plan Diagnoses and all orders for this visit: 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 ([facility] [place]) - Intravitreal Injection, Pharmacologic Agent - OS - Left Eye - Bevacizumab solution prefilled syringe 1.25 mg Intravitreal Injection, Pharmacologic Agent - OS - Left Eye Time Out 11/08/2024. 1:33 PM. Confirmed correct patient, procedure, site, and patient consented. Anesthesia Topical anesthesia was used. Anesthetic medications included Lidocaine 2%, Proparacaine 0.5%. Procedure Preparation included 5% betadine to ocular surface, eyelid speculum. Injection: 1.25 mg Bevacizumab 1.25 MG/0.05ML Route: Intravitreal, Site: Left Eye [facility]: [address]-4, Lot: [id number], Expiration date: 07/18/2025 Post-op Post injection exam found visual acuity of at least counting fingers, no retinal detachment, perfused optic nerve. The patient tolerated the procedure well. There were no complications. The patient received written and verbal post procedure care education. Post injection medications were not given. Notes Intravitreal antiVEGF Treatment: Risks, benefits and alternatives were discussed for Intravitreal injection with the prescribed antiVEGF agent. With intraocular surgery, there is potential for direct retinal damage through retinal or RPE tear, or infection, with subsequent vision loss. Informative Intravitreal pamphlet provided as well as an OMIC consent. Of course, the treatment may fail to accomplish the overall therapeutic objectives, which is to stall or decrease the amount of retinal edema / bleeding, and therefore stall or improve vision loss. Intravitreal Anti-VEGF: Consent was obtained and questions answered. Operative eye was identified, receiving topical proparacaine, 5% betadine, and 2% xylocaine jelly. A lid speculum was placed and the inferotemp. injection site received additional anesthetic with a proparacaine soaked cotton swab. Using calipers (set at 3.5mm for pseudo and 4mm for phakic), the inferotemp. limbus was measured, sclera marked and 2 additional drops of betadine placed. Avoiding any talking to avoid contamination, intravitreal injection was carried out without difficulty. Any residual amount of medication was discarded appropriately. The patient tolerated the procedure well and instructed to call with increased pain, redness, decreased vision or concerns. documented in this encounter [facility] 11-02-2024 Note Time Out 11/02/2024. 9:10 AM. Confirmed correct patient, procedure, site, and patient consented. Anesthesia Topical anesthesia was used. Anesthetic medications included Lidocaine 2%, Proparacaine 0.5%. Procedure Preparation included 5% betadine to ocular surface, eyelid speculum. A 30 gauge needle was used. Injection: 1.25 mg Bevacizumab 1.25 MG/0.05ML Route: Intravitreal, Site: Right Eye [facility]: [address]-6, Lot: [id number], Expiration date: 07/18/2025 Post-op Post injection exam found visual acuity of at least counting fingers, no retinal detachment, perfused optic nerve. The patient tolerated the procedure well. There were no complications. The patient received written and verbal post procedure care education. Post injection medications were not given. Notes Intravitreal antiVEGF Treatment: Risks, benefits and alternatives were discussed for Intravitreal injection with the prescribed antiVEGF agent. With intraocular surgery, there is potential for direct retinal damage through retinal or RPE tear, or infection, with subsequent vision loss. Informative Intravitreal pamphlet provided as well as an OMIC consent. Of course, the treatment may fail to accomplish the overall therapeutic objectives, which is to stall or decrease the amount of retinal edema / bleeding, and therefore stall or improve vision loss. Intravitreal Anti-VEGF: Consent was obtained and questions answered. Operative eye was identified, receiving topical proparacaine, 5% betadine, and 2% xylocaine jelly. A lid speculum was placed and the inferotemp. injection site received additional anesthetic with a proparacaine soaked cotton swab. Using calipers (set at 3.5mm for pseudo and 4mm for phakic), the inferotemp. limbus was measured, sclera marked and 2 additional drops of betadine placed. Avoiding any talking to avoid contamination, intravitreal injection was carried out without difficulty. Any residual amount of medication was discarded appropriately. The patient tolerated the procedure well and instructed to call with increased pain, redness, decreased vision or concerns. [facility] 11-02-2024 Note Right Eye Quality was good. Scan locations included subfoveal. Progression has improved. Findings include abnormal foveal contour, intraretinal fluid. Left Eye Quality was good. Scan locations included subfoveal. Progression has improved. Findings include abnormal foveal contour, intraretinal fluid. [facility] 11-02-2024 History of Present illness Narrative Images from the original note were not included. 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 Scan locations included subfoveal. Progression has improved. Findings include abnormal foveal contour, intraretinal fluid. Left Eye Quality was good. Scan locations included subfoveal. Progression has improved. Findings include abnormal foveal contour, intraretinal fluid. Linked Images Intravitreal Injection, Pharmacologic Agent - OD - Right Eye Time Out 11/02/2024. 9:10 AM. Confirmed correct patient, procedure, site, and patient consented. Anesthesia Topical anesthesia was used. Anesthetic medications included Lidocaine 2%, Proparacaine 0.5%. Procedure Preparation included 5% betadine to ocular surface, eyelid speculum. A 30 gauge needle was used. Injection: 1.25 mg Bevacizumab 1.25 MG/0.05ML Route: Intravitreal, Site: Right Eye [facility]: [address]-3, Lot: [id number], Expiration date: 07/18/2025 Post-op Post injection exam found visual acuity of at least counting fingers, no retinal detachment, perfused optic nerve. The patient tolerated the procedure well. There were no complications. The patient received written and verbal post procedure care education. Post injection medications were not given. Notes Intravitreal antiVEGF Treatment: Risks, benefits and alternatives were discussed for Intravitreal injection with the prescribed antiVEGF agent. With intraocular surgery, there is potential for direct retinal damage through retinal or RPE tear, or infection, with subsequent vision loss. Informative Intravitreal pamphlet provided as well as an OMIC consent. Of course, the treatment may fail to accomplish the overall therapeutic objectives, which is to stall or decrease the amount of retinal edema / bleeding, and therefore stall or improve vision loss. Intravitreal Anti-VEGF: Consent was obtained and questions answered. Operative eye was identified, receiving topical proparacaine, 5% betadine, and 2% xylocaine jelly. A lid speculum was placed and the inferotemp. injection site received additional anesthetic with a proparacaine soaked cotton swab. Using calipers (set at 3.5mm for pseudo and 4mm for phakic), the inferotemp. limbus was measured, sclera marked and 2 additional drops of betadine placed. Avoiding any talking to avoid contamination, intravitreal injection was carried out without difficulty. Any residual amount of medication was discarded appropriately. The patient tolerated the procedure well and instructed to call with increased pain, redness, decreased vision or concerns. documented in this encounter [facility] 10-20-2024 History of Present illness Narrative Associated Problem(s): Chronic kidney disease (CKD) stage G3a/A1, moderately decreased glomerular filtration rate (GFR) between 45-59 mL/min/1.73 square meter and albuminuria creatinine ratio less than 30 mg/g (H* ([facility] [place]) Kidney function has decreased in past year to 45- will discontinue metformin and trial Farxiga at 10mg. Re-evaluate in 6 weeks. Recheck CMP in 6 weeks Associated Problem(s): Type 2 diabetes mellitus without complication, without long-term current use of insulin ([facility] [place]) Currently taking Metformin 500mg BID Glimepiride 2mg once daily. Kidney function has decreased in past year to 45- will discontinue metformin and trial Farxiga at 10mg. Re-evaluate in 6 weeks. Most recent labs: hemoglobin A1C 6.7 in 10/2024. FSBS range from BGs range between 125 and 130 Checks BG levels using: standard fingerstick meter No episode of hypoglycemia No medication adverse effects reported by the patient. Patient educated on lifestyle modifications, dietary restrictions, signs and symptoms of hypoglycemia/hyperglycemia and importance of eating regular consistent meals. Stressed upon importance of checking blood glucose at home and bring blood glucose log to appointments. All questions, concerns answered and addressed. Encouraged to call office if persistent hypoglycemia/hyperglycemia on home glucose monitoring noted. Images from the original note were not included. Subjective Patient ID: Gian Sandoval is a 63 y.o. male who presents for Follow-up. HPI HTN: Currently taking Metoprolol and Valsartan Does not check BP at home; Denies orthostatic changes, dizziness, cough, shortness of breath, swelling in extremities. Continue current regimen. Given BP log, advised pt to record BP and bring log back with them to next visit. HLD: Currently taking Rosuvastatin Denies any myalgias. Will add Fish oil 2g BID for hypertriglyceridemia Component Ref Range & Units 13 d ago (10/07/24) 13 d ago (10/07/24) 13 d ago (10/07/24) 1 yr ago (10/06/23) 1 yr ago (10/06/23) 1 yr ago (10/06/23) 1 yr ago (10/06/23) TRIGLYCERIDES <=150 mg/dL 231 High 143 R 18.8 Low R 255 High 141 R 23.9 R 145.39 R CHOLESTEROL <=200 mg/dL 121 4.6 R 0.2 R 148 4.2 R 0.2 R HDL CHOLESTEROL 40 - 60 mg/dL 50 14.0 R 6.2 R 49 CM 12.1 R 5.7 R Comment: > or =60 mg/dl - LOW CARDIOVASCULAR RISK <40 mg/dl - HIGH CARDIOVASCULAR RISK LDL CHOLESTEROL CALCULATED mg/dL 25.0 98 R 1.6 R 48.0 CM 153 High R 2.1 R Comment: <100 mg/dl OPTIMAL 100-129 mg/dl NEAR OR ABOVE OPTIMAL 130-159 mg/dl BORDERLINE HIGH 160-189 mg/dl HIGH >190 mg/dl VERY HIGH VLDL CHOLESTEROL mg/dL 46.2 0.9 R 0.6 R 51.0 0.6 R 0.5 R CHOL HDL RATIO 2.4 20 R 0.02 R 3.0 CM 23 R 0.02 R Comment: 3.3 - 4.4 LOW RISK 4.4 - 7.1 AVERAGE RISK 7.1 - 11.0 MODERATE RISK >11.0 HIGH RISK ALANINE AMINOTRANSFERASE 26 R 37 R ALKALINE PHOSPHATASE 76 R 89 R TOTAL PROTEIN 7.5 R 7.6 R ALBUMIN LEVEL 3.6 R 3.4 R ALBUMIN GLOBULIN RATIO 0.9 0.8 Resulting Agency [facility] DMII: Currently taking Metformin 500mg BID Glimepiride 2mg once daily. Kidney function has decreased in past year to 45- will discontinue metformin and trial Farxiga at 10mg. Re-evaluate in 6 weeks. Most recent labs: hemoglobin A1C 6.7 in 10/2024. FSBS range from BGs range between 125 and 130 Checks BG levels using: standard fingerstick meter No episode of hypoglycemia No medication adverse effects reported by the patient. Patient educated on lifestyle modifications, dietary restrictions, signs and symptoms of hypoglycemia/hyperglycemia and importance of eating regular consistent meals. Stressed upon importance of checking blood glucose at home and bring blood glucose log to appointments. All questions, concerns answered and addressed. Encouraged to call office if persistent hypoglycemia/hyperglycemia on home glucose monitoring noted. Education: Check blood sugars daily, notify if <70 or >200. Take medications (pills or insulin) as directed. Monitor for s/s of hypoglycemia (sweaty, dizziness, nausea, vomiting, or shakiness). Watch for increase in thirst, urination, or appetite. Inspect feet frequently monitoring for open wounds , and also recommend yearly eye exam. Pt should attempt to remain as physically active as chronic conditions allow, as well as trying to follow a diet low in carbohydrates, and simple sugars. Review of Systems Constitutional: Negative for activity change, appetite change, chills, diaphoresis, fatigue, fever and unexpected weight change. HENT: Negative for congestion, ear pain, rhinorrhea, sinus pressure, sinus pain, sneezing, sore throat, trouble swallowing and voice change. Eyes: Negative for visual disturbance. Respiratory: Negative for cough, chest tightness, shortness of breath and wheezing. Cardiovascular: Negative for chest pain, palpitations and leg swelling. Gastrointestinal: Negative for abdominal distention, abdominal pain, blood in stool, constipation, diarrhea and vomiting. Genitourinary: Negative for decreased urine volume, dysuria, flank pain, frequency, hematuria and urgency. Musculoskeletal: Negative for arthralgias, gait problem, joint swelling and myalgias. Skin: Negative for rash. Neurological: Negative for dizziness, tremors, syncope, weakness, light-headedness and headaches. Psychiatric/Behavioral: Negative for decreased concentration and suicidal ideas. The patient is not nervous/anxious. Hematological: Does not bruise/bleed easily. Endocrine: Negative for cold intolerance, heat intolerance, polydipsia, polyphagia and polyuria. Objective Physical Exam Vitals reviewed. Constitutional: Appearance: Normal appearance. HENT: Right Ear: Tympanic membrane normal. Left Ear: Tympanic membrane normal. Nose: Nose normal. Mouth/Throat: Mouth: Mucous membranes are moist. Pharynx: Oropharynx is clear. Eyes: Pupils: Pupils are equal, round, and reactive to light. Cardiovascular: Rate and Rhythm: Normal rate and regular rhythm. Pulses: Normal pulses. Heart sounds: Normal heart sounds. Pulmonary: Effort: Pulmonary effort is normal. Breath sounds: Normal breath sounds. Abdominal: General: Abdomen is flat. Bowel sounds are normal. Palpations: Abdomen is soft. Skin: Capillary Refill: Capillary refill takes less than 2 seconds. Neurological: Mental Status: He is alert and oriented to person, place, and time. Assessment/Plan Problem List Items Addressed This Visit Irregular heart rate Relevant Medications metoprolol succinate XL (Toprol-XL) 50 MG 24 hr tablet Type 2 diabetes mellitus with hyperglycemia (CMS/HCC) Relevant Medications dapagliflozin (Farxiga) 10 MG Hyperlipemia (CMS/HCC) Currently taking Rosuvastatin Denies any myalgias. Will add Fish oil 2g BID for hypertriglyceridemia Relevant Medications fish oil concentrate ([place]-3) 1000 MG capsule rosuvastatin (Crestor) 20 MG tablet 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 ([facility]/HCC) Relevant Medications valsartan (Diovan) 80 MG tablet dapagliflozin (Farxiga) 10 MG Primary hypertension ([facility] [place]) - Primary Currently taking Metoprolol and Valsartan Does not check BP at home; Denies orthostatic changes, dizziness, cough, shortness of breath, swelling in extremities. Continue current regimen. Given BP log, advised pt to record BP and bring log back with them to next visit. Type 2 diabetes mellitus without complication, without long-term current use of insulin ([facility] [place]) Currently taking Metformin 500mg BID Glimepiride 2mg once daily. Kidney function has decreased in past year to 45- will discontinue metformin and trial Farxiga at 10mg. Re-evaluate in 6 weeks. Most recent labs: hemoglobin A1C 6.7 in 10/2024. FSBS range from BGs range between 125 and 130 Checks BG levels using: standard fingerstick meter No episode of hypoglycemia No medication adverse effects reported by the patient. Patient educated on lifestyle modifications, dietary restrictions, signs and symptoms of hypoglycemia/hyperglycemia and importance of eating regular consistent meals. Stressed upon importance of checking blood glucose at home and bring blood glucose log to appointments. All questions, concerns answered and addressed. Encouraged to call office if persistent hypoglycemia/hyperglycemia on home glucose monitoring noted. Relevant Medications glimepiride (Amaryl) 2 MG tablet Chronic kidney disease (CKD) stage G3a/A1, moderately decreased glomerular filtration rate (GFR) between 45-59 mL/min/1.73 square meter and albuminuria creatinine ratio less than 30 mg/g (H* ([facility] [place]) Kidney function has decreased in past year to 45- will discontinue metformin and trial Farxiga at 10mg. Re-evaluate in 6 weeks. Recheck CMP in 6 weeks Relevant Medications dapagliflozin (Farxiga) 10 MG Associated Problem(s): Hyperlipemia ([facility] [place]) Currently taking Rosuvastatin Denies any myalgias. Will add Fish oil 2g BID for hypertriglyceridemia Associated Problem(s): Primary hypertension (CMS/HCC) Currently taking Metoprolol and Valsartan Does not check BP at home; Denies orthostatic changes, dizziness, cough, shortness of breath, swelling in extremities. Continue current regimen. Given BP log, advised pt to record BP and bring log back with them to next visit. documented in this encounter [facility] 10-20-2024 Instructions Enrique Arias NP - 10/20/2024 4:00 PM EST Education: Check blood sugars daily, notify if <70 or >200. Take medications (pills or insulin) as directed. Monitor for s/s of hypoglycemia (sweaty, dizziness, nausea, vomiting, or shakiness). Watch for increase in thirst, urination, or appetite. Inspect feet frequently monitoring for open wounds , and also recommend yearly eye exam. Pt should attempt to remain as physically active as chronic conditions allow, as well as trying to follow a diet low in carbohydrates, and simple sugars. documented in this encounter [facility] 10-11-2024 Note Time Out 10/11/2024. 9:53 AM. Confirmed correct patient, procedure, site, and patient consented. Anesthesia Topical anesthesia was used. Anesthetic medications included Lidocaine 2%, Proparacaine 0.5%. Procedure Preparation included 5% betadine to ocular surface, eyelid speculum. Injection: 1.25 mg Bevacizumab 1.25 MG/0.05ML Route: Intravitreal, Site: Left Eye [facility]: [address]-4, Lot: [id number], Expiration date: 11/10/2024 Post-op Post injection exam found visual acuity of at least counting fingers, no retinal detachment, perfused optic nerve. The patient tolerated the procedure well. There were no complications. The patient received written and verbal post procedure care education. Post injection medications were not given. Notes Intravitreal antiVEGF Treatment: Risks, benefits and alternatives were discussed for Intravitreal injection with the prescribed antiVEGF agent. With intraocular surgery, there is potential for direct retinal damage through retinal or RPE tear, or infection, with subsequent vision loss. Informative Intravitreal pamphlet provided as well as an OMIC consent. Of course, the treatment may fail to accomplish the overall therapeutic objectives, which is to stall or decrease the amount of retinal edema / bleeding, and therefore stall or improve vision loss. Intravitreal Anti-VEGF: Consent was obtained and questions answered. Operative eye was identified, receiving topical proparacaine, 5% betadine, and 2% xylocaine jelly. A lid speculum was placed and the inferotemp. injection site received additional anesthetic with a proparacaine soaked cotton swab. Using calipers (set at 3.5mm for pseudo and 4mm for phakic), the inferotemp. limbus was measured, sclera marked and 2 additional drops of betadine placed. Avoiding any talking to avoid contamination, intravitreal injection was carried out without difficulty. Any residual amount of medication was discarded appropriately. The patient tolerated the procedure well and instructed to call with increased pain, redness, decreased vision or concerns. [facility] 10-11-2024 History of Present illness Narrative Images from the original note were not included. Assessment/Plan Diagnoses and all orders for this visit: 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 ([facility] [place]) - Intravitreal Injection, Pharmacologic Agent - OS - Left Eye - Bevacizumab solution prefilled syringe 1.25 mg Intravitreal Injection, Pharmacologic Agent - OS - Left Eye Time Out 10/11/2024. 9:53 AM. Confirmed correct patient, procedure, site, and patient consented. Anesthesia Topical anesthesia was used. Anesthetic medications included Lidocaine 2%, Proparacaine 0.5%. Procedure Preparation included 5% betadine to ocular surface, eyelid speculum. Injection: 1.25 mg Bevacizumab 1.25 MG/0.05ML Route: Intravitreal, Site: Left Eye [facility]: [address]-8, Lot: [id number], Expiration date: 11/10/2024 Post-op Post injection exam found visual acuity of at least counting fingers, no retinal detachment, perfused optic nerve. The patient tolerated the procedure well. There were no complications. The patient received written and verbal post procedure care education. Post injection medications were not given. Notes Intravitreal antiVEGF Treatment: Risks, benefits and alternatives were discussed for Intravitreal injection with the prescribed antiVEGF agent. With intraocular surgery, there is potential for direct retinal damage through retinal or RPE tear, or infection, with subsequent vision loss. Informative Intravitreal pamphlet provided as well as an OMIC consent. Of course, the treatment may fail to accomplish the overall therapeutic objectives, which is to stall or decrease the amount of retinal edema / bleeding, and therefore stall or improve vision loss. Intravitreal Anti-VEGF: Consent was obtained and questions answered. Operative eye was identified, receiving topical proparacaine, 5% betadine, and 2% xylocaine jelly. A lid speculum was placed and the inferotemp. injection site received additional anesthetic with a proparacaine soaked cotton swab. Using calipers (set at 3.5mm for pseudo and 4mm for phakic), the inferotemp. limbus was measured, sclera marked and 2 additional drops of betadine placed. Avoiding any talking to avoid contamination, intravitreal injection was carried out without difficulty. Any residual amount of medication was discarded appropriately. The patient tolerated the procedure well and instructed to call with increased pain, redness, decreased vision or concerns. documented in this encounter [facility] 09-27-2024 Note Time Out 09/27/2024. 8:32 AM. Confirmed correct patient, procedure, site, and patient consented. Anesthesia Topical anesthesia was used. Anesthetic medications included Lidocaine 2%, Proparacaine 0.5%. Procedure Preparation included 5% betadine to ocular surface, eyelid speculum. A 30 gauge needle was used. Injection: 1.25 mg Bevacizumab 1.25 MG/0.05ML Route: Intravitreal, Site: Right Eye [facility]: [address]-1, Lot: [id number], Expiration date: 11/10/2024 Post-op Post injection exam found visual acuity of at least counting fingers, no retinal detachment, perfused optic nerve. The patient tolerated the procedure well. There were no complications. The patient received written and verbal post procedure care education. Post injection medications were not given. Notes Intravitreal antiVEGF Treatment: Risks, benefits and alternatives were discussed for Intravitreal injection with the prescribed antiVEGF agent. With intraocular surgery, there is potential for direct retinal damage through retinal or RPE tear, or infection, with subsequent vision loss. Informative Intravitreal pamphlet provided as well as an OMIC consent. Of course, the treatment may fail to accomplish the overall therapeutic objectives, which is to stall or decrease the amount of retinal edema / bleeding, and therefore stall or improve vision loss. Intravitreal Anti-VEGF: Consent was obtained and questions answered. Operative eye was identified, receiving topical proparacaine, 5% betadine, and 2% xylocaine jelly. A lid speculum was placed and the inferotemp. injection site received additional anesthetic with a proparacaine soaked cotton swab. Using calipers (set at 3.5mm for pseudo and 4mm for phakic), the inferotemp. limbus was measured, sclera marked and 2 additional drops of betadine placed. Avoiding any talking to avoid contamination, intravitreal injection was carried out without difficulty. Any residual amount of medication was discarded appropriately. The patient tolerated the procedure well and instructed to call with increased pain, redness, decreased vision or concerns. [facility] 09-27-2024 History of Present illness Narrative Images from the original note were not included. 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 8:32 AM. Confirmed correct patient, procedure, site, and patient consented. Anesthesia Topical anesthesia was used. Anesthetic medications included Lidocaine 2%, Proparacaine 0.5%. Procedure Preparation included 5% betadine to ocular surface, eyelid speculum. A 30 gauge needle was used. Injection: 1.25 mg Bevacizumab 1.25 MG/0.05ML Route: Intravitreal, Site: Right Eye [facility]: [address]-4, Lot: [id number], Expiration date: 11/10/2024 Post-op Post injection exam found visual acuity of at least counting fingers, no retinal detachment, perfused optic nerve. The patient tolerated the procedure well. There were no complications. The patient received written and verbal post procedure care education. Post injection medications were not given. Notes Intravitreal antiVEGF Treatment: Risks, benefits and alternatives were discussed for Intravitreal injection with the prescribed antiVEGF agent. With intraocular surgery, there is potential for direct retinal damage through retinal or RPE tear, or infection, with subsequent vision loss. Informative Intravitreal pamphlet provided as well as an OMIC consent. Of course, the treatment may fail to accomplish the overall therapeutic objectives, which is to stall or decrease the amount of retinal edema / bleeding, and therefore stall or improve vision loss. Intravitreal Anti-VEGF: Consent was obtained and questions answered. Operative eye was identified, receiving topical proparacaine, 5% betadine, and 2% xylocaine jelly. A lid speculum was placed and the inferotemp. injection site received additional anesthetic with a proparacaine soaked cotton swab. Using calipers (set at 3.5mm for pseudo and 4mm for phakic), the inferotemp. limbus was measured, sclera marked and 2 additional drops of betadine placed. Avoiding any talking to avoid contamination, intravitreal injection was carried out without difficulty. Any residual amount of medication was discarded appropriately. The patient tolerated the procedure well and instructed to call with increased pain, redness, decreased vision or concerns. documented in this encounter [facility] 09-21-2024 History of Present illness Narrative Pt presents today for a post accident drug screen and BAT for EPC. Pt verified by photo ID. documented in this encounter [facility] 09-20-2024 Note Right Eye Quality was good. Scan locations included subfoveal. Progression has been stable. Findings include abnormal foveal contour, epiretinal membrane, intraretinal fluid. Left Eye Quality was borderline. Scan locations included subfoveal. Progression has been stable. Findings include abnormal foveal contour, epiretinal membrane, intraretinal fluid. [facility] 09-20-2024 History of Present illness Narrative Images from the original note were not included. Assessment/Plan Diagnoses and all orders for this visit: Cystoid macular edema of both eyes Vs. 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 Sandoval continues to suffer from edema within the macula of both eyes (OU). At this time I believe this to be a consequence of DME both eyes (OU). He also displays an epiretinal membrane (ERM) both eyes (OU). I have advised for antiVEGF treatment both eyes (OU) to commence to improve swelling. documented in this encounter [facility] 08-19-2024 History of Present illness Narrative Subjective Gian Sandoval is a 63 y.o. male Chief Complaint Follow-up HPI Patient is in the office for follow-up for the problems noted below. Since he was last seen in the office he has not had any symptoms suggestive angina pectoris. Denies any orthopnea PND or lower extremity edema, no claudications. A1c remains above 7 and his PCP is addressing that. There has not been any lab data since he was last seen. His weight is increased several pounds from last visit something that brought his attention and education to bring it down was provided. He has stigmata highly suggestive of sleep apnea for which sleep study is recommended. Assessment/recommendations: 1-severe coronary artery disease confirmed by cardiac catheterization November 2021. He has occlusion of the RCA and left circumflex with 50 to 70% mid LAD stenosis with mature nature of collaterals and ejection fraction 45%. Viability study time out to be negative there 40 was not a candidate for complete revascularization with surgery. We will continue aggressive modification risk factor for CAD. 2-ischemic cardiopathy stage C functional class II, he is currently on beta-evin therapy and valsartan 3-type II diabetes on medical therapy managed by PCP, A1c above 7, PCP is addressing that issue 4-hyperlipidemia on rosuvastatin, lipid profile is needed and was ordered 5-class I obesity, encouraged weight loss with diet and exercise. Review of Systems All other systems reviewed and are negative. Vitals: 08/19/24 1325 BP: 130/70 BP Location: Left arm Patient Position: Sitting Pulse: 72 Weight: 92.5 kg (204 lb) Height: 1.626 m (5' 4 ) Objective Physical Exam Constitutional: Appearance: Normal appearance. HENT: Nose: Nose normal. Neck: Vascular: No carotid bruit. Cardiovascular: Rate and Rhythm: Normal rate. Pulses: Normal pulses. Heart sounds: Normal heart sounds. Pulmonary: Effort: Pulmonary effort is normal. Abdominal: General: Bowel sounds are normal. Palpations: Abdomen is soft. Musculoskeletal: General: Normal range of motion. Cervical back: Normal range of motion. Right lower leg: No edema. Left lower leg: No edema. Skin: General: Skin is warm and dry. Neurological: General: No focal deficit present. Mental Status: He is alert. Psychiatric: Mood and Affect: Mood normal. Behavior: Behavior normal. Thought Content: Thought content normal. Judgment: Judgment normal. Allergies Glipizide Current Medications Current Outpatient Medications: aspirin 81 mg EC tablet, Take 1 tablet (81 mg) by mouth once daily., Disp: , Rfl: glimepiride (Amaryl) 2 mg tablet, Take 1 tablet (2 mg) by mouth once daily in the morning. Take before meals., Disp: , Rfl: metFORMIN (Glucophage) 500 mg tablet, Take 1 tablet (500 mg) by mouth every 12 hours., Disp: , Rfl: metoprolol succinate XL (Toprol-XL) [...] doses total., Disp: 100 tablet, Rfl: 11 rosuvastatin (Crestor) 20 mg tablet, Take 1 tablet (20 mg) by mouth once daily., Disp: 90 tablet, Rfl: 3 valsartan (Diovan) 80 mg tablet, Take 1 tablet (80 mg) by mouth once daily., Disp: 90 tablet, Rfl: 3 Assessment/Plan 1. Diabetes mellitus type II, non insulin dependent (Multi) 2. 3-vessel coronary artery disease Follow Up In Cardiology Follow Up In Cardiology Lipid Panel Alanine Aminotransferase Aspartate Aminotransferase CBC Basic Metabolic Panel rosuvastatin (Crestor) 20 mg tablet Lipid Panel Alanine Aminotransferase Aspartate Aminotransferase CBC Basic Metabolic Panel 3. Cardiomyopathy, unspecified type (Multi) CBC Basic Metabolic Panel In-Center Sleep Study CBC Basic Metabolic Panel 4. Snoring In-Center Sleep Study 5. Hyperlipidemia, unspecified hyperlipidemia type Lipid Panel Alanine Aminotransferase Aspartate Aminotransferase rosuvastatin (Crestor) 20 mg tablet Lipid Panel Alanine Aminotransferase Aspartate Aminotransferase 6. Never smoked any substance 7. BMI 35.0-35.9,adult 8. Atherosclerotic heart disease of ambler coronary artery without angina pectoris valsartan (Diovan) 80 mg tablet Scribe Attestation By signing my name below, I, Elizabeth Smith LPN , Ed attest that this documentation has been prepared under the direction and in the presence of Yohan Sadler MD. Provider Attestation - Scribe documentation All medical record entries made by the Scribe were at my direction and personally dictated by me. I have reviewed the chart and agree that the record accurately reflects my personal performance of the history, physical exam, discussion and plan. documented in this encounter [facility] Work Phone: 08-19-2024 Instructions Elizabeth Campos LPN - 08/19/2024 1:30 PM EST Please bring all medicines, vitamins, and herbal supplements with you when you come to the office. Prescriptions will not be filled unless you are compliant with your follow up appointments or have a follow up appointment scheduled as per instruction of your physician. Refills should be requested at the time of your visit. BMI was above normal measurement. Current weight: 92.5 kg (204 lb) Weight change since last visit (-) denotes wt loss 10 lbs Weight loss needed to achieve BMI 25: 58.7 Lbs Weight loss needed to achieve BMI 30: 29.6 Lbs Provided instructions on dietary changes. Lab work Sleep study 6 months documented in this encounter [facility] Work Phone: 08-08-2024 Telephone encounter Note Patient forgot to tell you he needed all of his prescriptions refilled. LINDA [facility] 08-08-2024 Miscellaneous Notes Patient forgot to tell you he needed all of his prescriptions refilled. LINDA documented in this encounter [facility] 08-05-2024 Note Right Eye Quality was poor. Scan locations included subfoveal. Progression has worsened. Findings include abnormal foveal contour, intraretinal fluid, subretinal fluid. Left Eye Quality was poor. Scan locations included subfoveal. Progression has worsened. Findings include abnormal foveal contour, intraretinal fluid. [facility] 08-05-2024 History of Present illness Narrative Images from the original note were not included. Assessment/Plan Diagnoses and all orders for this visit: Cystoid macular edema of both eyes Vs. Moderate nonproliferative diabetic retinopathy of both eyes with macular edema associated with type 2 diabetes mellitus ([facility]) - Mr. Sandoval returns status post (s/p) cataract extraction (CE) both eyes (OU) with new onset of macular edema. This may be related to the cataract removal and for this will begin Pred Acetate and Ketorolac both eyes (OU) QID. However, this is more likely to be related to his diabetic status. Will use the above treatment for 4-6 wks and if no improvement may discuss antiVEGF therapy. documented in this encounter [facility] 07-13-2024 History of Present illness Narrative Associated Problem(s): 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 edema, without long-term current use of insulin ([facility]) Currently taking Glimepiride and Metformin. Most recent labs: hemoglobin A1C 6.9% in 01/2024 Average FSBS range from BGs range between 125 and 130 Checks BG levels using: standard fingerstick meter No episode of hypoglycemia No medication adverse effects reported by the patient. Patient educated on lifestyle modifications, dietary restrictions, signs and symptoms of hypoglycemia/hyperglycemia and importance of eating regular consistent meals. Stressed upon importance of checking blood glucose at home and bring blood glucose log to appointments. All questions, concerns answered and addressed. Encouraged to call office if persistent hypoglycemia/hyperglycemia on home glucose monitoring noted. Associated Problem(s): Hyperlipemia (CMS/HCC) Currently taking Rosuvastatin Denies any myalgias. Continue current regimen. Associated Problem(s): Primary hypertension (CMS/HCC) Currently taking Metoprolol and Valsartan Does not check BP at home; BP at goal today in office. Denies orthostatic changes, dizziness, cough, shortness of breath, swelling in extremities. Continue current regimen. Given BP log, advised pt to record BP and bring log back with them to next visit. Images from the original note were not included. Subjective Patient ID: Gian Sandoval is a 63 y.o. male who presents for Follow-up. HPI Had cataract surgery done last month and this month on bilateral eyes. Feels he is recovering well. HTN: Currently taking Metoprolol and Valsartan Does not check BP at home; Denies orthostatic changes, dizziness, cough, shortness of breath, swelling in extremities. Continue current regimen. Given BP log, advised pt to record BP and bring log back with them to next visit. HLD: Currently taking Rosuvastatin Denies any myalgias. Continue current regimen. DMII: Most recent labs: hemoglobin A1C 6.9% in 01/2024 Average FSBS range from BGs range between 125 and 130 Checks BG levels using: standard fingerstick meter No episode of hypoglycemia No medication adverse effects reported by the patient. Patient educated on lifestyle modifications, dietary restrictions, signs and symptoms of hypoglycemia/hyperglycemia and importance of eating regular consistent meals. Stressed upon importance of checking blood glucose at home and bring blood glucose log to appointments. All questions, concerns answered and addressed. Encouraged to call office if persistent hypoglycemia/hyperglycemia on home glucose monitoring noted. Education: Check blood sugars daily, notify if <70 or >200. Take medications (pills or insulin) as directed. Monitor for s/s of hypoglycemia (sweaty, dizziness, nausea, vomiting, or shakiness). Watch for increase in thirst, urination, or appetite. Inspect feet frequently monitoring for open wounds , and also recommend yearly eye exam. Pt should attempt to remain as physically active as chronic conditions allow, as well as trying to follow a diet low in carbohydrates, and simple sugars. Review of Systems Constitutional: Negative for activity change, appetite change, chills, diaphoresis, fatigue, fever and unexpected weight change. HENT: Negative for congestion, ear pain, rhinorrhea, sinus pressure, sinus pain, sneezing, sore throat, trouble swallowing and voice change. Eyes: Negative for visual disturbance. Respiratory: Negative for cough, chest tightness, shortness of breath and wheezing. Cardiovascular: Negative for chest pain, palpitations and leg swelling. Gastrointestinal: Negative for abdominal distention, abdominal pain, blood in stool, constipation, diarrhea and vomiting. Genitourinary: Negative for decreased urine volume, dysuria, flank pain, frequency, hematuria and urgency. Musculoskeletal: Negative for arthralgias, gait problem, joint swelling and myalgias. Skin: Negative for rash. Neurological: Negative for dizziness, tremors, syncope, weakness, light-headedness and headaches. Psychiatric/Behavioral: Negative for decreased concentration and suicidal ideas. The patient is not nervous/anxious. Hematological: Does not bruise/bleed easily. Endocrine: Negative for cold intolerance, heat intolerance, polydipsia, polyphagia and polyuria. Objective Physical Exam Vitals reviewed. Constitutional: Appearance: Normal appearance. HENT: Head: Normocephalic and atraumatic. Right Ear: Tympanic membrane normal. Left Ear: Tympanic membrane normal. Nose: Nose normal. Mouth/Throat: Mouth: Mucous membranes are moist. Pharynx: Oropharynx is clear. Eyes: Pupils: Pupils are equal, round, and reactive to light. Cardiovascular: Rate and Rhythm: Normal rate and regular rhythm. Pulses: Normal pulses. Heart sounds: Normal heart sounds. Pulmonary: Effort: Pulmonary effort is normal. Breath sounds: Normal breath sounds. Abdominal: General: Abdomen is flat. Bowel sounds are normal. Palpations: Abdomen is soft. Musculoskeletal: General: Normal range of motion. Cervical back: Normal range of motion. Skin: General: Skin is warm and dry. Capillary Refill: Capillary refill takes less than 2 seconds. Neurological: General: No focal deficit present. Mental Status: He is alert and oriented to person, place, and time. Psychiatric: Mood and Affect: Mood normal. Behavior: Behavior normal. Assessment/Plan Problem List Items Addressed This Visit Hyperlipemia (CMS/HCC) Currently taking Rosuvastatin Denies any myalgias. Continue current regimen. 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 edema, without long-term current use of insulin (CMS/HCC) Currently taking Glimepiride and Metformin. Most recent labs: hemoglobin A1C 6.9% in 01/2024 Average FSBS range from BGs range between 125 and 130 Checks BG levels using: standard fingerstick meter No episode of hypoglycemia No medication adverse effects reported by the patient. Patient educated on lifestyle modifications, dietary restrictions, signs and symptoms of hypoglycemia/hyperglycemia and importance of eating regular consistent meals. Stressed upon importance of checking blood glucose at home and bring blood glucose log to appointments. All questions, concerns answered and addressed. Encouraged to call office if persistent hypoglycemia/hyperglycemia on home glucose monitoring noted. Primary hypertension (CMS/HCC) - Primary Currently taking Metoprolol and Valsartan Does not check BP at home; BP at goal today in office. Denies orthostatic changes, dizziness, cough, shortness of breath, swelling in extremities. Continue current regimen. Given BP log, advised pt to record BP and bring log back with them to next visit. documented in this encounter [facility] 07-13-2024 Instructions Enrique Arias NP - 07/13/2024 4:00 PM EST FASTING labs ordered. Nothing to eat or drink for 12 hours prior to blood draw. Water and black coffee ok. Education: Check blood sugars daily, notify if <70 or >200. Take medications (pills or insulin) as directed. Monitor for s/s of hypoglycemia (sweaty, dizziness, nausea, vomiting, or shakiness). Watch for increase in thirst, urination, or appetite. Inspect feet frequently monitoring for open wounds , and also recommend yearly eye exam. Pt should attempt to remain as physically active as chronic conditions allow, as well as trying to follow a diet low in carbohydrates, and simple sugars. documented in this encounter [facility] 05-24-2024 History of Present illness Narrative Images from the original note were not included. Assessment/Plan Diagnoses and all orders for this visit: Visually Significant Cataract, OU: I discussed the risks, benefits, alternatives, and expectations of cataract surgery. A complete ophthalmic exam was performed and it was determined that the cataracts were a primary source of vision decline, affecting activities of daily living, necessitating removal. Limited vision post-surgery may occur with pre-existing conditions affecting other areas of the eye or the brain was explained and the patient displayed an understanding. The overall objective is to improve ADLs, not eliminate glasses or restore vision to 20/20. Tests were reviewed - the different lens options were explained including the [id number] fees for any upgrades. Intraocular lens (IOL) selection may be altered either prior to or during the procedure based on the doctor's discretion including reverting to a traditional intraocular lens (IOL). They understood that there will exist the potential of glasses prescription need post surgery for near, distance or possibly both. The patient stated a full understanding and a desire to proceed with the procedure. The patient received cataract measurements and had any additional questions answered. - A complete exam was performed including a physical exam: General: AAOx3 and NAD, Lungs: Clear, Heart: RRR, Abdomen: S/NT/ND, Extremities: no pitting edema. - Coordination of care will be shared with Dr. Tucker. Cataract Surgery for OD will take place - 06/02 and OS - 07/07. 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 (CMS/HCC) - Diabetes Mellitus with signs of diabetic retinopathy on dilated retinal examination today OU: Discussed the pathophysiology of diabetes and its effect on the eye. Stressed the importance of strong glucose control. Advised of importance of at least yearly dilated examinations, but to contact us immediately for any problems or concerns. Continue aggressive control of the blood sugar, blood pressure and cholesterol. documented in this encounter [facility] 10-07-2023 History of Present illness Narrative j documented in this encounter [facility] 10-01-2023 History of Present illness Narrative Subjective Gian Sandoval is a 62 y.o. male Chief [...] functional class II, he is currently on beta-evin therapy 3-diabetes on medical therapy managed by [...] of other type without complication, unspecified whether alf insulin 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 Never smoked any substance Scribe Attestation By signing my name below, Tammy Coats LPN, Scribe attest that this documentation has been prepared under the direction and in the presence of Yohan Sadler MD. documented in this encounter [facility] Work Phone: 10-01-2023 Instructions Ileana Franco LPN - 10/01/2023 [...] of your visit. documented in this encounter [facility] Work Phone: Evaluation note No assessment inform [facility] Work Phone: Evaluation note Diagnosis 3-vessel coronary artery disease Cardiomyopathy, unspecified type (CMS/HCC) Hyperlipidemia, unspecified hyperlipidemia type Diabetes mellitus of other type without complication, unspecified whether termite helper insulin use (CMS/[facility]) Never smoked any substance documented in this encounter [facility] Work Phone: Evaluation note* Diagnosis Type 2 diabetes mellitus without complication, without long-term current use of insulin (CMS/HCC)- Primary [facility] Diagnosis Hyperlipidemia, unspecified hyperlipidemia type (CMS/HCC) [facility] Diagnosis Type 2 diabetes mellitus without complication, without long-term current use of insulin (CMS/HCC)- Primary Hyperlipidemia, unspecified hyperlipidemia type (CMS/HCC) 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 (CMS/HCC) Primary hypertension [...] hyperlipidemia type (CMS/HCC) 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 (CMS/HCC) Age-related nuclear cataract of both eyes- Primary documented in [facility] encounter [facility]* Diagnosis Type 2 diabetes mellitus without complication, without long-term current use of insulin (CMS/HCC)- Primary Hyperlipidemia, unspecified hyperlipidemia type (CMS/HCC) 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 (CMS/HCC) Primary hypertension [...] hyperlipidemia type (CMS/HCC) 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 (CMS/HCC) Primary hypertension (CMS/HCC)- Primary Unspecified essential hypertension 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 edema, without long-term current use of insulin (CMS/HCC) Hyperlipidemia, unspecified hyperlipidemia type (CMS/HCC) documented in this encounter [facility]* Diagnosis Type 2 diabetes mellitus without complication, without long-term current use of insulin (CMS/HCC)- Primary Hyperlipidemia, unspecified hyperlipidemia type (CMS/HCC) 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 (CMS/HCC) Primary hypertension [...] hyperlipidemia type (CMS/HCC) 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 (CMS/HCC) Primary hypertension (CMS/HCC)- Primary Unspecified essential hypertension 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 edema, without long-term current use of insulin (CMS/HCC) Hyperlipidemia, unspecified hyperlipidemia type (CMS/HCC) Type 2 diabetes mellitus with hyperglycemia (CMS/HCC) documented in this encounter [facility]* Diagnosis Type 2 diabetes mellitus without complication, without long-term current use of insulin (CMS/HCC)- Primary Hyperlipidemia, unspecified hyperlipidemia type (CMS/HCC) 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 (CMS/HCC) Primary hypertension [...] hyperlipidemia type (CMS/HCC) 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 (CMS/HCC) Primary hypertension (CMS/HCC)- Primary Unspecified essential hypertension 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 edema, without long-term current use of insulin (CMS/HCC) Hyperlipidemia, unspecified hyperlipidemia type (CMS/HCC) Cystoid macular edema of both eyes- Primary 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 (CMS/HCC) documented in this encounter [facility]* Diagnosis Type 2 diabetes mellitus without complication, without long-term current use of insulin (CMS/HCC)- Primary Hyperlipidemia, unspecified hyperlipidemia type (CMS/HCC) 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 (CMS/HCC) Primary hypertension [...] hyperlipidemia type (CMS/HCC) 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 (CMS/HCC) Primary hypertension (CMS/HCC)- Primary Unspecified essential hypertension 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 edema, without long-term current use of insulin (CMS/HCC) Hyperlipidemia, unspecified hyperlipidemia type (CMS/HCC) 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 (CMS/HCC)- Primary Type 2 diabetes mellitus without complication, without long-term current use of insulin (CMS/HCC) Type 2 diabetes mellitus with hyperglycemia (CMS/HCC) Hyperlipidemia, unspecified hyperlipidemia type (CMS/HCC) Irregular heart rate documented in this encounter [facility]* Diagnosis Type 2 diabetes mellitus without complication, without long-term current use of insulin (CMS/HCC)- Primary Hyperlipidemia, unspecified hyperlipidemia type (CMS/HCC) 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 (CMS/HCC) Primary hypertension [...] hyperlipidemia type (CMS/HCC) 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 (CMS/HCC) Primary hypertension (CMS/HCC)- Primary Unspecified essential hypertension 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 edema, without long-term current use of insulin (CMS/HCC) Hyperlipidemia, unspecified hyperlipidemia type (CMS/HCC) Cystoid macular edema of both eyes 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 (CMS/HCC) documented in this encounter [facility]* Diagnosis Age-related nuclear cataract of both eyes- Primary 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 (CMS/HCC) documented in this encounter [facility]* Diagnosis Diabetes mellitus type II, non insulin dependent (Multi)- Primary Type II or unspecified type diabetes mellitus without mention of complication, not stated as uncontrolled 3-vessel coronary artery disease Cardiomyopathy, unspecified type (Multi) Snoring Other dyspnea and respiratory abnormality Hyperlipidemia, unspecified hyperlipidemia type Never smoked any substance BMI 35.0-35.9,adult Atherosclerotic heart disease of ambler coronary artery without angina pectoris documented in this encounter [facility] Work Phone: Evaluation note* Diagnosis Type 2 diabetes mellitus without complication, without long-term current use of insulin (CMS/HCC)- Primary Hyperlipidemia, unspecified hyperlipidemia type (CMS/HCC) 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 (CMS/HCC) Primary hypertension (CMS/HCC) Unspecified essential hypertension Encounter for screening for malignant neoplasm of colon Primary hypertension (CMS/HCC)- Primary Unspecified essential hypertension Type 2 diabetes mellitus without complication, without long-term current use of insulin (CMS/HCC) Primary hypertension (CMS/HCC)- Primary Unspecified essential hypertension 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 edema, without long-term current use of insulin (CMS/HCC) Hyperlipidemia, unspecified hyperlipidemia type (CMS/HCC) 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 (CMS/HCC) Primary hypertension (CMS/HCC)- Primary Unspecified essential hypertension 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 edema, without long-term current use of insulin (CMS/HCC) Hyperlipidemia, unspecified hyperlipidemia type (CMS/HCC) Cystoid macular edema of both eyes- Primary Cystoid macular degeneration of retina 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 (CMS/HCC) documented in this encounter [facility]* Diagnosis Type 2 diabetes mellitus without complication, without long-term current use of insulin (CMS/HCC)- Primary Hyperlipidemia, unspecified hyperlipidemia type (CMS/HCC) 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 (CMS/HCC) Primary hypertension (CMS/HCC) Unspecified essential hypertension Encounter for screening for malignant neoplasm of colon Primary hypertension (CMS/HCC)- Primary Unspecified essential hypertension Type 2 diabetes mellitus without complication, without long-term current use of insulin (CMS/HCC) Primary hypertension (CMS/HCC)- Primary Unspecified essential hypertension 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 edema, without long-term current use of insulin (CMS/HCC) Hyperlipidemia, unspecified hyperlipidemia type (CMS/HCC) 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 (CMS/HCC) Primary hypertension (CMS/HCC)- Primary Unspecified essential hypertension 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 edema, without long-term current use of insulin (CMS/HCC) Hyperlipidemia, unspecified hyperlipidemia type (CMS/HCC) 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 (CMS/HCC)- Primary documented in this encounter [facility] HealthcareEvaluation note* Diagnosis Type 2 diabetes mellitus without complication, without long-term current use of insulin (CMS/HCC)- Primary Hyperlipidemia, unspecified hyperlipidemia type (CMS/HCC) 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 (CMS/HCC) Primary hypertension (CMS/HCC) Unspecified essential hypertension Encounter for screening for malignant neoplasm of colon Primary hypertension (CMS/HCC)- Primary Unspecified essential hypertension Type 2 diabetes mellitus without complication, without long-term current use of insulin (CMS/HCC) Primary hypertension (CMS/HCC)- Primary Unspecified essential hypertension 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 edema, without long-term current use of insulin (CMS/HCC) Hyperlipidemia, unspecified hyperlipidemia type (CMS/HCC) 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 (CMS/HCC) Primary hypertension (CMS/HCC)- Primary Unspecified essential hypertension 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 edema, without long-term current use of insulin ([facility] [place]) Hyperlipidemia, unspecified hyperlipidemia type ([facility]/HCC) 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 ([facility]/HCC)- Primary documented in this encounter [facility] HealthcareEvaluation note* Diagnosis Type 2 diabetes mellitus without complication, without long-term current use of insulin ([facility] [place])- Primary Hyperlipidemia, unspecified hyperlipidemia type ([facility]/HCC) 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 ([facility] [place]) Primary hypertension ([facility] [place]) Unspecified essential hypertension Encounter for screening for malignant neoplasm of colon Primary hypertension ([facility] [place])- Primary Unspecified essential hypertension Type 2 diabetes mellitus without complication, without long-term current use of insulin ([facility] [place]) Primary hypertension ([facility] [place])- Primary Unspecified essential hypertension 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 edema, without long-term current use of insulin ([facility] [place]) Hyperlipidemia, unspecified hyperlipidemia type ([facility] [place]) 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 ([facility] [place]) Primary hypertension ([facility] [place])- Primary Unspecified essential hypertension 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 edema, without long-term current use of insulin ([facility] [place]) Hyperlipidemia, unspecified hyperlipidemia type ([facility]/HCC) Primary hypertension ([facility] [place])- Primary Unspecified essential hypertension Type 2 diabetes mellitus without complication, without long-term current use of insulin ([facility] [place]) Type 2 diabetes mellitus with hyperglycemia ([facility] [place]) Irregular heart rate Hyperlipidemia, unspecified hyperlipidemia type ([facility]/HCC) 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 ([facility] [place]) Chronic kidney disease (CKD) stage G3a/A1, moderately decreased glomerular filtration rate (GFR) between 45-59 mL/min/1.73 square meter and albuminuria creatinine ratio less than 30 mg/g (H* ([facility] [place]) documented in this encounter [facility] HealthcareEvaluation note* Diagnosis Type 2 diabetes mellitus without complication, without long-term current use of insulin ([facility] [place])- Primary Hyperlipidemia, unspecified hyperlipidemia type ([facility] [place]) 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 (CMS/HCC) Primary hypertension (CMS/HCC) Unspecified essential hypertension Encounter for screening for malignant neoplasm of colon Primary hypertension (CMS/HCC)- Primary Unspecified essential hypertension Type 2 diabetes mellitus without complication, without long-term current use of insulin (CMS/HCC) Primary hypertension (CMS/HCC)- Primary Unspecified essential hypertension 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 edema, without long-term current use of insulin (CMS/HCC) Hyperlipidemia, unspecified hyperlipidemia type (CMS/HCC) 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 (CMS/HCC) Primary hypertension (CMS/HCC)- Primary Unspecified essential hypertension 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 edema, without long-term current use of insulin (CMS/HCC) Hyperlipidemia, unspecified hyperlipidemia type (CMS/HCC) Primary hypertension (CMS/HCC)- Primary Unspecified essential hypertension Type 2 diabetes mellitus without complication, without long-term current use of insulin ([facility] [place]) Type 2 diabetes mellitus with hyperglycemia ([facility] [place]) Irregular heart rate Hyperlipidemia, unspecified hyperlipidemia type (CMS/HCC) 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 (CMS/HCC) Chronic kidney disease (CKD) stage G3a/A1, moderately decreased glomerular filtration rate (GFR) between 45-59 mL/min/1.73 square meter and albuminuria creatinine ratio less than 30 mg/g (H* (CMS/HCC) 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 (CMS/HCC)- Primary Moderate nonproliferative diabetic retinopathy of both eyes with macular edema associated with type 2 diabetes mellitus (CMS/HCC) documented in this encounter [facility] HealthcareEvaluation note* Diagnosis Type 2 diabetes mellitus without complication, without long-term current use of insulin (CMS/HCC)- Primary Hyperlipidemia, unspecified hyperlipidemia type (CMS/HCC) 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 (CMS/HCC) Primary hypertension (CMS/HCC) Unspecified essential hypertension Encounter for screening for malignant neoplasm of colon Primary hypertension (CMS/HCC)- Primary Unspecified essential hypertension Type 2 diabetes mellitus without complication, without long-term current use of insulin (CMS/HCC) Primary hypertension ([facility]/HCC)- Primary Unspecified essential hypertension 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 edema, without long-term current use of insulin (CMS/HCC) Hyperlipidemia, unspecified hyperlipidemia type (CMS/HCC) 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 (CMS/HCC) Primary hypertension (CMS/HCC)- Primary Unspecified essential hypertension 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 edema, without long-term current use of insulin (CMS/HCC) Hyperlipidemia, unspecified hyperlipidemia type (CMS/HCC) Primary hypertension ([facility]/HCC)- Primary Unspecified essential hypertension Type 2 diabetes mellitus without complication, without long-term current use of insulin ([facility] [place]) Type 2 diabetes mellitus with hyperglycemia ([facility] [place]) Irregular heart rate Hyperlipidemia, unspecified hyperlipidemia type (CMS/HCC) 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 (CMS/HCC) Chronic kidney disease (CKD) stage G3a/A1, moderately decreased glomerular filtration rate (GFR) between 45-59 mL/min/1.73 square meter and albuminuria creatinine ratio less than 30 mg/g (H* ([facility] [place]) 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 (CMS/HCC)- Primary documented in this encounter [facility] HealthcareEvaluation note* Diagnosis Type 2 diabetes mellitus without complication, without long-term current use of insulin (/HCC)- Primary Hyperlipidemia, unspecified hyperlipidemia type (CMS/HCC) 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 (/HCC) Primary hypertension ([facility]/HCC) Unspecified essential hypertension Encounter for screening for malignant neoplasm of colon Primary hypertension ([facility]/HCC)- Primary Unspecified essential hypertension Type 2 diabetes mellitus without complication, without long-term current use of insulin (/HCC) Primary hypertension ([facility]/HCC)- Primary Unspecified essential hypertension 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 edema, without long-term current use of insulin (CMS/HCC) Hyperlipidemia, unspecified hyperlipidemia type (CMS/HCC) 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 (CMS/HCC) Primary hypertension ([facility]/HCC)- Primary Unspecified essential hypertension 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 edema, without long-term current use of insulin (CMS/HCC) Hyperlipidemia, unspecified hyperlipidemia type ([facility] [place]) Encounter for drug screening Primary hypertension ([facility] [place])- Primary Unspecified essential hypertension Type 2 diabetes mellitus without complication, without long-term current use of insulin ([facility] [place]) Type 2 diabetes mellitus with hyperglycemia ([facility] [place]) Irregular heart rate Hyperlipidemia, unspecified hyperlipidemia type ([facility] [place]) 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 ([facility] [place]) Chronic kidney disease (CKD) stage G3a/A1, moderately decreased glomerular filtration rate (GFR) between 45-59 mL/min/1.73 square meter and albuminuria creatinine ratio less than 30 mg/g (H* ([facility] [place]) documented in this encounter [facility] HealthcareEvaluation note* Diagnosis Type 2 diabetes mellitus without complication, without long-term current use of insulin- Primary Hyperlipidemia, unspecified hyperlipidemia type ([facility] [place]) 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 ([facility] [place]) Primary hypertension ([facility] [place]) Unspecified essential hypertension Encounter for screening for malignant neoplasm of colon Primary hypertension ([facility] [place])- Primary Unspecified essential hypertension Type 2 diabetes mellitus without complication, without long-term current use of insulin Primary hypertension ([facility] [place])- Primary Unspecified essential hypertension 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 edema, without long-term current use of insulin ([facility] [place]) Hyperlipidemia, unspecified hyperlipidemia type ([facility] [place]) 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 ([facility] [place]) Primary hypertension ([facility] [place])- Primary Unspecified essential hypertension 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 edema, without long-term current use of insulin ([facility] [place]) Hyperlipidemia, unspecified hyperlipidemia type ([facility] [place]) Primary hypertension ([facility] [place])- Primary Unspecified essential hypertension Type 2 diabetes mellitus without complication, without long-term current use of insulin Type 2 diabetes mellitus with hyperglycemia ([facility] [place]) Irregular heart rate Hyperlipidemia, unspecified hyperlipidemia type ([facility] [place]) 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 ([facility] [place]) Chronic kidney disease (CKD) stage G3a/A1, moderately decreased glomerular filtration rate (GFR) between 45-59 mL/min/1.73 square meter and albuminuria creatinine ratio less than 30 mg/g (H* 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 (CMS/HCC)- Primary Bilateral posterior capsular opacification Unspecified after-cataract documented in this encounter [facility] HealthcareEvaluation note* Diagnosis Type 2 diabetes mellitus without complication, without long-term current use of insulin- Primary Hyperlipidemia, unspecified hyperlipidemia type (CMS/HCC) 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 (CMS/HCC) Primary hypertension (CMS/HCC) Unspecified essential hypertension Encounter for screening for malignant neoplasm of colon Primary hypertension (CMS/HCC)- Primary Unspecified essential hypertension Type 2 diabetes mellitus without complication, without long-term current use of insulin Primary hypertension (CMS/HCC)- Primary Unspecified essential hypertension 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 edema, without long-term current use of insulin (CMS/HCC) Hyperlipidemia, unspecified hyperlipidemia type (CMS/HCC) 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 (CMS/HCC) Primary hypertension (CMS/HCC)- Primary Unspecified essential hypertension 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 edema, without long-term current use of insulin (CMS/HCC) Hyperlipidemia, unspecified hyperlipidemia type (CMS/HCC) Primary hypertension (CMS/HCC)- Primary Unspecified essential hypertension Type 2 diabetes mellitus without complication, without long-term current use of insulin Type 2 diabetes mellitus with hyperglycemia (CMS/HCC) Irregular heart rate Hyperlipidemia, unspecified hyperlipidemia type (CMS/HCC) 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 (CMS/HCC) Chronic kidney disease (CKD) stage G3a/A1, moderately decreased glomerular filtration rate (GFR) between 45-59 mL/min/1.73 square meter and albuminuria creatinine ratio less than 30 mg/g (H* 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 (CMS/HCC)- Primary documented in this encounter [facility] HealthcareEvaluation note* Diagnosis Type 2 diabetes mellitus without complication, without long-term current use of insulin- Primary Hyperlipidemia, unspecified hyperlipidemia type (CMS/HCC) 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 (CMS/HCC) Primary hypertension (CMS/HCC) Unspecified essential hypertension Encounter for screening for malignant neoplasm of colon Primary hypertension (CMS/HCC)- Primary Unspecified essential hypertension Type 2 diabetes mellitus without complication, without long-term current use of insulin Primary hypertension (CMS/HCC)- Primary Unspecified essential hypertension 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 edema, without long-term current use of insulin (CMS/HCC) Hyperlipidemia, unspecified hyperlipidemia type (CMS/HCC) 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 (CMS/HCC) Primary hypertension (CMS/HCC)- Primary Unspecified essential hypertension 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 edema, without long-term current use of insulin (CMS/HCC) Hyperlipidemia, unspecified hyperlipidemia type (CMS/HCC) Primary hypertension (CMS/HCC)- Primary Unspecified essential hypertension Type 2 diabetes mellitus without complication, without long-term current use of insulin Type 2 diabetes mellitus with hyperglycemia (CMS/HCC) Irregular heart rate Hyperlipidemia, unspecified hyperlipidemia type (CMS/HCC) 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 (CMS/HCC) Chronic kidney disease (CKD) stage G3a/A1, moderately decreased glomerular filtration rate (GFR) between 45-59 mL/min/1.73 square meter and albuminuria creatinine ratio less than 30 mg/g (H* 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 (CMS/HCC)- Primary documented in this encounter [facility] HealthcareEvaluation note* Diagnosis Type 2 diabetes mellitus without complication, without long-term current use of insulin- Primary Hyperlipidemia, unspecified hyperlipidemia type (CMS/HCC) 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 (CMS/HCC) Primary hypertension (CMS/HCC) Unspecified essential hypertension Encounter for screening for malignant neoplasm of colon Primary hypertension (CMS/HCC)- Primary Unspecified essential hypertension Type 2 diabetes mellitus without complication, without long-term current use of insulin Primary hypertension (CMS/HCC)- Primary Unspecified essential hypertension 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 edema, without long-term current use of insulin (CMS/HCC) Hyperlipidemia, unspecified hyperlipidemia type (CMS/HCC) 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 (CMS/HCC) Primary hypertension (CMS/HCC)- Primary Unspecified essential hypertension 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 edema, without long-term current use of insulin (CMS/HCC) Hyperlipidemia, unspecified hyperlipidemia type (CMS/HCC) Primary hypertension (CMS/HCC)- Primary Unspecified essential hypertension Type 2 diabetes mellitus without complication, without long-term current use of insulin Type 2 diabetes mellitus with hyperglycemia (CMS/HCC) Irregular heart rate Hyperlipidemia, unspecified hyperlipidemia type (CMS/HCC) 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 (CMS/HCC) Chronic kidney disease (CKD) stage G3a/A1, moderately decreased glomerular filtration rate (GFR) between 45-59 mL/min/1.73 square meter and albuminuria creatinine ratio less than 30 mg/g (H* 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 (CMS/HCC)- Primary documented in this encounter [facility] HealthcareEvaluation note* Diagnosis Type 2 diabetes mellitus without complication, without long-term current use of insulin- Primary Hyperlipidemia, unspecified hyperlipidemia type (CMS/HCC) 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 (CMS/HCC) Primary hypertension (CMS/HCC) Unspecified essential hypertension Encounter for screening for malignant neoplasm of colon Primary hypertension (CMS/HCC)- Primary Unspecified essential hypertension Type 2 diabetes mellitus without complication, without long-term current use of insulin Primary hypertension (CMS/HCC)- Primary Unspecified essential hypertension 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 edema, without long-term current use of insulin (CMS/HCC) Hyperlipidemia, unspecified hyperlipidemia type (CMS/HCC) 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 (CMS/HCC) Primary hypertension (CMS/HCC)- Primary Unspecified essential hypertension 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 edema, without long-term current use of insulin (CMS/HCC) Hyperlipidemia, unspecified hyperlipidemia type (CMS/HCC) Primary hypertension (CMS/HCC)- Primary Unspecified essential hypertension Type 2 diabetes mellitus without complication, without long-term current use of insulin Type 2 diabetes mellitus with hyperglycemia (CMS/HCC) Irregular heart rate Hyperlipidemia, unspecified hyperlipidemia type (CMS/HCC) 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 (CMS/HCC) Chronic kidney disease (CKD) stage G3a/A1, moderately decreased glomerular filtration rate (GFR) between 45-59 mL/min/1.73 square meter and albuminuria creatinine ratio less than 30 mg/g (H* Type 2 diabetes mellitus without complication, without long-term current use of insulin documented in this encounter [facility] HealthcareEvaluation note* Diagnosis Type 2 diabetes mellitus without complication, without long-term current use of insulin (HCC)- Primary Hyperlipidemia, unspecified hyperlipidemia type 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 Primary hypertension Unspecified essential hypertension Encounter for screening for malignant neoplasm of colon Primary hypertension- Primary Unspecified essential hypertension Type 2 diabetes mellitus without complication, without long-term current use of insulin (HCC) Primary hypertension- Primary Unspecified essential hypertension 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 edema, without long-term current use of insulin (HCC) Hyperlipidemia, unspecified hyperlipidemia type 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 Primary hypertension- Primary Unspecified essential hypertension 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 edema, without long-term current use of insulin (HCC) Hyperlipidemia, unspecified hyperlipidemia type Primary hypertension- Primary Unspecified essential hypertension Type 2 diabetes mellitus without complication, without long-term current use of insulin (HCC) Type 2 diabetes mellitus with hyperglycemia (HCC) Irregular heart rate Hyperlipidemia, unspecified hyperlipidemia type 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 Chronic kidney disease (CKD) stage G3a/A1, moderately decreased glomerular filtration rate (GFR) between 45-59 mL/min/1.73 square meter and albuminuria creatinine ratio less than 30 mg/g (H* ([facility] [place] 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 (HCC)- Primary documented in this encounter [facility] HealthcareEvaluation note* Diagnosis Type 2 diabetes mellitus without complication, without long-term current use of insulin (HCC)- Primary Hyperlipidemia, unspecified hyperlipidemia type 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 Primary hypertension Unspecified essential hypertension Encounter for screening for malignant neoplasm of colon Primary hypertension- Primary Unspecified essential hypertension Type 2 diabetes mellitus without complication, without long-term current use of insulin (HCC) Primary hypertension- Primary Unspecified essential hypertension 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 edema, without long-term current use of insulin (HCC) Hyperlipidemia, unspecified hyperlipidemia type 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 Primary hypertension- Primary Unspecified essential hypertension 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 edema, without long-term current use of insulin (HCC) Hyperlipidemia, unspecified hyperlipidemia type Primary hypertension- Primary Unspecified essential hypertension Type 2 diabetes mellitus without complication, without long-term current use of insulin (HCC) Type 2 diabetes mellitus with hyperglycemia (HCC) Irregular heart rate Hyperlipidemia, unspecified hyperlipidemia type 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 Chronic kidney disease (CKD) stage G3a/A1, moderately decreased glomerular filtration rate (GFR) between 45-59 mL/min/1.73 square meter and albuminuria creatinine ratio less than 30 mg/g (H* ([facility] [place]) CKD stage 3b, GFR 30-44 ml/min ([facility] [place])- Primary Moderate nonproliferative diabetic retinopathy of both eyes with macular edema associated with type 2 diabetes mellitus (HCC) Type 2 diabetes mellitus without complication, without long-term current use of insulin (HCC) Hyperlipidemia, unspecified hyperlipidemia type Primary hypertension Unspecified essential hypertension 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 Diabetes mellitus type 2 with complications (HCC) documented in this encounter [facility] HealthcareEvaluation note* Diagnosis Type 2 diabetes mellitus without complication, without long-term current use of insulin (HCC)- Primary Hyperlipidemia, unspecified hyperlipidemia type 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 Primary hypertension Unspecified essential hypertension Encounter for screening for malignant neoplasm of colon Primary hypertension- Primary Unspecified essential hypertension Type 2 diabetes mellitus without complication, without long-term current use of insulin (HCC) Primary hypertension- Primary Unspecified essential hypertension 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 edema, without long-term current use of insulin (HCC) Hyperlipidemia, unspecified hyperlipidemia type 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 Primary hypertension- Primary Unspecified essential hypertension 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 edema, without long-term current use of insulin (HCC) Hyperlipidemia, unspecified hyperlipidemia type Primary hypertension- Primary Unspecified essential hypertension Type 2 diabetes mellitus without complication, without long-term current use of insulin (HCC) Type 2 diabetes mellitus with hyperglycemia (HCC) Irregular heart rate Hyperlipidemia, unspecified hyperlipidemia type 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 Chronic kidney disease (CKD) stage G3a/A1, moderately decreased glomerular filtration rate (GFR) between 45-59 mL/min/1.73 square meter and albuminuria creatinine ratio less than 30 mg/g (H* ([facility] [place]) CKD stage 3b, GFR 30-44 ml/min ([facility] [place])- Primary Moderate nonproliferative diabetic retinopathy of both eyes with macular edema associated with type 2 diabetes mellitus ([facility] [place]) Type 2 diabetes mellitus without complication, without long-term current use of insulin ([facility] [place]) Hyperlipidemia, unspecified hyperlipidemia type Primary hypertension Unspecified essential hypertension 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 Diabetes mellitus type 2 with complications ([facility] [place]) Type 2 diabetes mellitus with hyperglycemia ([facility] [place])- Primary documented in this encounter [facility] HealthcareEvaluation note* Diagnosis Type 2 diabetes mellitus without complication, without long-term current use of insulin ([facility] [place])- Primary Hyperlipidemia, unspecified hyperlipidemia type 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 Primary hypertension Unspecified essential hypertension Encounter for screening for malignant neoplasm of colon Primary hypertension- Primary Unspecified essential hypertension Type 2 diabetes mellitus without complication, without long-term current use of insulin ([facility] [place]) Primary hypertension- Primary Unspecified essential hypertension 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 edema, without long-term current use of insulin ([facility] [place]) Hyperlipidemia, unspecified hyperlipidemia type 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 Primary hypertension- Primary Unspecified essential hypertension 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 edema, without long-term current use of insulin ([facility] [place]) Hyperlipidemia, unspecified hyperlipidemia type Primary hypertension- Primary Unspecified essential hypertension Type 2 diabetes mellitus without complication, without long-term current use of insulin ([facility] [place]) Type 2 diabetes mellitus with hyperglycemia ([facility] [place]) Irregular heart rate Hyperlipidemia, unspecified hyperlipidemia type 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 Chronic kidney disease (CKD) stage G3a/A1, moderately decreased glomerular filtration rate (GFR) between 45-59 mL/min/1.73 square meter and albuminuria creatinine ratio less than 30 mg/g (H* ([facility] [place]) CKD stage 3b, GFR 30-44 ml/min ([facility] [place])- Primary Moderate nonproliferative diabetic retinopathy of both eyes with macular edema associated with type 2 diabetes mellitus (HCC) Type 2 diabetes mellitus without complication, without long-term current use of insulin (HCC) Hyperlipidemia, unspecified hyperlipidemia type Primary hypertension Unspecified essential hypertension 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 (HCC)- Primary documented in this encounter [facility] HealthcareEvaluation note* Diagnosis Type 2 diabetes mellitus without complication, without long-term current use of insulin ([facility] [place])- Primary Hyperlipidemia, unspecified hyperlipidemia type 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 Primary hypertension Unspecified essential hypertension Encounter for screening for malignant neoplasm of colon Primary hypertension- Primary Unspecified essential hypertension Type 2 diabetes mellitus without complication, without long-term current use of insulin ([facility] [place]) Primary hypertension- Primary Unspecified essential hypertension 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 edema, without long-term current use of insulin ([facility] [place]) Hyperlipidemia, unspecified hyperlipidemia type 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 Primary hypertension- Primary Unspecified essential hypertension 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 edema, without long-term current use of insulin ([facility] [place]) Hyperlipidemia, unspecified hyperlipidemia type Primary hypertension- Primary Unspecified essential hypertension Type 2 diabetes mellitus without complication, without long-term current use of insulin ([facility] [place]) Type 2 diabetes mellitus with hyperglycemia ([facility] [place]) Irregular heart rate Hyperlipidemia, unspecified hyperlipidemia type 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 Chronic kidney disease (CKD) stage G3a/A1, moderately decreased glomerular filtration rate (GFR) between 45-59 mL/min/1.73 square meter and albuminuria creatinine ratio less than 30 mg/g (H* ([facility] [place]) CKD stage 3b, GFR 30-44 ml/min ([facility] [place])- Primary Moderate nonproliferative diabetic retinopathy of both eyes with macular edema associated with type 2 diabetes mellitus (HCC) Type 2 diabetes mellitus without complication, without long-term current use of insulin ([facility] [place]) Hyperlipidemia, unspecified hyperlipidemia type Primary hypertension Unspecified essential hypertension 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 Diabetes mellitus type 2 with complications (HCC) 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 documented in this encounter [facility] HealthcareEvaluation note* Diagnosis Type 2 diabetes mellitus without complication, without long-term current use of insulin (HCC)- Primary Hyperlipidemia, unspecified hyperlipidemia type 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 Primary hypertension Unspecified essential hypertension Encounter for screening for malignant neoplasm of colon Primary hypertension- Primary Unspecified essential hypertension Type 2 diabetes mellitus without complication, without long-term current use of insulin (HCC) Primary hypertension- Primary Unspecified essential hypertension 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 edema, without long-term current use of insulin (HCC) Hyperlipidemia, unspecified hyperlipidemia type 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 Primary hypertension- Primary Unspecified essential hypertension 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 edema, without long-term current use of insulin (HCC) Hyperlipidemia, unspecified hyperlipidemia type Primary hypertension- Primary Unspecified essential hypertension Type 2 diabetes mellitus without complication, without long-term current use of insulin (HCC) Type 2 diabetes mellitus with hyperglycemia ([facility] [place]) Irregular heart rate Hyperlipidemia, unspecified hyperlipidemia type 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 Chronic kidney disease (CKD) stage G3a/A1, moderately decreased glomerular filtration rate (GFR) between 45-59 mL/min/1.73 square meter and albuminuria creatinine ratio less than 30 mg/g (H* ([facility] [place]) CKD stage 3b, GFR 30-44 ml/min ([facility] [place])- Primary Moderate nonproliferative diabetic retinopathy of both eyes with macular edema associated with type 2 diabetes mellitus (HCC) Type 2 diabetes mellitus without complication, without long-term current use of insulin (HCC) Hyperlipidemia, unspecified hyperlipidemia type Primary hypertension Unspecified essential hypertension 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 Diabetes mellitus type 2 with complications (HCC) 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 (HCC)- [facility] Diagnosis 3-vessel coronary artery disease Cardiomyopathy, unspecified type (Multi) Hyperlipidemia, unspecified hyperlipidemia type Diabetes mellitus of other type without complication, unspecified whether termite helper insulin use Never smoked any substance BMI 36.0-36.9,adult documented in this encounter [facility] Work Phone: Evaluation note* Diagnosis Type 2 diabetes mellitus without complication, without long-term current use of insulin (HCC)- Primary Hyperlipidemia, unspecified hyperlipidemia type 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 Primary hypertension Unspecified essential hypertension Encounter for screening for malignant neoplasm of colon Primary hypertension- Primary Unspecified essential hypertension Type 2 diabetes mellitus without complication, without long-term current use of insulin (HCC) Primary hypertension- Primary Unspecified essential hypertension 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 edema, without long-term current use of insulin (HCC) Hyperlipidemia, unspecified hyperlipidemia type 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 Primary hypertension- Primary Unspecified essential hypertension 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 edema, without long-term current use of insulin ([facility] [place]) Hyperlipidemia, unspecified hyperlipidemia type Primary hypertension- Primary Unspecified essential hypertension Type 2 diabetes mellitus without complication, without long-term current use of insulin ([facility] [place]) Type 2 diabetes mellitus with hyperglycemia ([facility] [place]) Irregular heart rate Hyperlipidemia, unspecified hyperlipidemia type 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 Chronic kidney disease (CKD) stage G3a/A1, moderately decreased glomerular filtration rate (GFR) between 45-59 mL/min/1.73 square meter and albuminuria creatinine ratio less than 30 mg/g (H* ([facility] [place]) CKD stage 3b, GFR 30-44 ml/min ([facility] [place])- Primary Moderate nonproliferative diabetic retinopathy of both eyes with macular edema associated with type 2 diabetes mellitus (HCC) Type 2 diabetes mellitus without complication, without long-term current use of insulin ([facility] [place]) Hyperlipidemia, unspecified hyperlipidemia type Primary hypertension Unspecified essential hypertension 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 (HCC)- Primary documented in this encounter [facility] HealthcareEvaluation note* Diagnosis Type 2 diabetes mellitus without complication, without long-term current use of insulin ([facility] [place])- Primary Hyperlipidemia, unspecified hyperlipidemia type 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 Primary hypertension Unspecified essential hypertension Encounter for screening for malignant neoplasm of colon Primary hypertension- Primary Unspecified essential hypertension Type 2 diabetes mellitus without complication, without long-term current use of insulin (HCC) Primary hypertension- Primary Unspecified essential hypertension 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 edema, without long-term current use of insulin (HCC) Hyperlipidemia, unspecified hyperlipidemia type 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 Primary hypertension- Primary Unspecified essential hypertension 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 edema, without long-term current use of insulin (HCC) Hyperlipidemia, unspecified hyperlipidemia type Primary hypertension- Primary Unspecified essential hypertension Type 2 diabetes mellitus without complication, without long-term current use of insulin (HCC) Type 2 diabetes mellitus with hyperglycemia (HCC) Irregular heart rate Hyperlipidemia, unspecified hyperlipidemia type 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 Chronic kidney disease (CKD) stage G3a/A1, moderately decreased glomerular filtration rate (GFR) between 45-59 mL/min/1.73 square meter and albuminuria creatinine ratio less than 30 mg/g (H* ([facility] [place]) CKD stage 3b, GFR 30-44 ml/min ([facility] [place])- Primary Moderate nonproliferative diabetic retinopathy of both eyes with macular edema associated with type 2 diabetes mellitus (HCC) Type 2 diabetes mellitus without complication, without long-term current use of insulin (HCC) Hyperlipidemia, unspecified hyperlipidemia type Primary hypertension Unspecified essential hypertension 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 Diabetes mellitus type 2 with complications (HCC) Hyperlipidemia, unspecified hyperlipidemia type documented in this encounter [facility]ative[facility] Consultation (Routine) - Authorized Specialty Diagnoses / Procedures Referred By Contac t Referred To Contact Cardiology Diagnoses 3-vessel coronary artery disease Procedures Follow Up In Cardiology Yohan Sadler MD [address] [place] [address], [address] [address] Yohan Sadler MD [address] [facility] 2, [address] [address] Referral ID Status Reason Start Date Expiration Date V isits Requested Visits Authorized [id number] Authorized 10/01/2023 09/30/2024 1 1 [facility] Work Phone: Chief Complaint and Reason for [...] 022 1:51pm Summary Purpose Chief Complaint * GIAN SANDOVAL is being seen for a 6 month follow-up of. * Patient is in the office for follow-up for CAD. Last November 2021 he underwent diagnostic cardiac catheterization which revealed occlusion of the mid RCA and left circumflex with mature [id number] and left to left collateral network. Ejection [...] class II, he is currently on beta- evin therapy but valsartan will be added, will check his labs in the near future. * 3 diabetes on medical therapy managed by PCP * 4 hyperlipidemia on rosuvastatin, lipid profile is needed and was ordered * 5 obesity, encouraged weight loss with diet and exercise. Additional Source Comments Care Teams (unrecognized sec tion and content) Team Status: Inactive Member Role Status Dates Yohan Sadler MD Attending Provider Active Shaikh Ramses MD Primary Care Provider Active Team Status: Active Member Role Status Dates Shaikh Ramses MD Primary Care Provider Active Mentally Impaired Teacher Relationship Specialty Start Date End Date Shaikh Pearce MD PCP - General 12/13/21 Mentally Impaired Teacher Relationship Specialty Start Date End Date Shaikh Pearce MD PCP - General Internal Medicine 07/01/23 Mentally Impaired Teacher Relationship Specialty Start Date End Date Shaikh Pearce MD PCP - General Internal Medicine 07/01/23 Mentally Impaired Teacher Relationship Specialty Start Date End Date Fuentes Wilson MD [address] [place] [phone] PCP - General Family Medicine 05/10/24 Aiyana Tucker OD [address] [place], [place] [id number] Referring Physician Optometry 11/11/23 Enrique Arias NP [address] [place] [address] Nurse Practitioner Family Medicine 05/10/24 Mentally Impaired Teacher Relationship Specialty Start Date End Date Fuentes Wilson MD [address] [place] [phone] PCP - General Family Medicine 05/10/24 [place] [address] [place] [id number] Referring Physician Optometry 11/11/23 Enrique Arias NP [address] [place] [phone] Nurse Practitioner Family Medicine 05/10/24 Mentally Impaired Teacher Relationship Specialty Start Date End Date Fuentes Wilson MD [address] [place] [phone] PCP - General Family Medicine 05/10/24 Aiyana Tucker OD [address] [place] [address] Referring Physician Optometry 11/11/23 Enrique Arias NP [address] [place] [place] [address] Nurse Practitioner Family Medicine 05/10/24 Mentally Impaired Teacher Relationship Specialty Start Date End Date Fuentes Wilson MD [address] [place] [phone] PCP - General Family Medicine 05/10/24 Aiyana Tucker OD [address] [place] [address] Referring Physician Optometry 11/11/23 Enrique Arias NP [address] [place] [phone] Nurse Practitioner Family Medicine 05/10/24 Mentally Impaired Teacher Relationship Specialty Start Date End Date Fuentes Wilson MD [address] [place] [address] PCP - General Family Medicine 05/10/24 [place] [address] [place] [address] [id number] Referring Physician Optometry 11/11/23 Enrique Arias NP [address] [place] [address] Nurse Practitioner Family Medicine 05/10/24 Mentally Impaired Teacher Relationship Specialty Start Date End Date Fuentes Wilson MD [address] [place] [address] PCP - General Family Medicine 05/10/24 Aiyana Tucker OD [address] [place] [address] Referring Physician Optometry 11/11/23 Enrique Arias NP [address] [place] [address] Nurse Practitioner Family Medicine 05/10/24 Mentally Impaired Teacher Relationship Specialty Start Date End Date Fuentes Wilson MD [address] [place] [address] PCP - General Family Medicine 05/10/24 Aiyana Tucker OD [address] [place] [address] Referring Physician Optometry 11/11/23 Enrique Arias NP [address] [place] [address] Nurse Practitioner Family Medicine 05/10/24 Mentally Impaired Teacher Relationship Specialty Start Date End Date Fuentes Wilson MD [address] [place] [address] PCP - General Family Medicine 05/10/24 Aiyana Tucker OD [address] [place] [address] Referring Physician Optometry 11/11/23 Enrique Arias NP [address] [place] [address] Nurse Practitioner Family Medicine 05/10/24 Mentally Impaired Teacher Relationship Specialty Start Date End Date Fuentes Wilson MD [address] [place] [address] PCP - General Family Medicine 05/10/24 Aiyana Tucker OD [address] [place] [address] Referring Physician Optometry 11/11/23 Enrique Arias NP [address] [place] [address] Nurse Practitioner Family Medicine 05/10/24 Mentally Impaired Teacher Relationship Specialty Start Date End Date Fuentes Wilson MD [address] [place] [address] PCP - General Family Medicine 05/10/24 Aiyana Tucker OD [address] [place] [address] Referring Physician Optometry 11/11/23 Enrique Arias NP [address] [place] [address] Nurse Practitioner Family Medicine 05/10/24 Mentally Impaired Teacher Relationship Specialty Start Date End Date Enrique Arias APRN-SURVEILLANCE INVESTIGATOR [address] [place] [address] PCP - General Family Medicine 08/19/24 Mentally Impaired Teacher Relationship Specialty Start Date End Date Fuentes Wilson MD [address] [place] [address] PCP - General Family Medicine 05/10/24 Aiyana Tucker OD [address] [place] [address] Referring Physician Optometry 11/11/23 Enrique Arias NP [address] [place] [address] Nurse Practitioner Family Medicine 05/10/24 Mentally Impaired Teacher Relationship Specialty Start Date End Date Fuentes Wilson MD [address] [place] [address] PCP - General Family Medicine 05/10/24 Aiyana Tucker, OD [address] [place] [address] Referring Physician Optometry 11/11/23 Enrique Arias, SHIRLEY [address] [place] [address] Nurse Practitioner Family Medicine 05/10/24 Mentally Impaired Teacher Relationship Specialty Start Date End Date Fuentes Wilson MD [address] [place] [address] PCP - General Family Medicine 05/10/24 Aiyana Tucker, OD [address] [facility] [place] [address] Referring Physician Optometry 11/11/23 Enrique Arias NP [address] [place] [address] Nurse Practitioner Family Medicine 05/10/24 Mentally Impaired Teacher Relationship Specialty Start Date End Date Fuentes Wilson MD [address] [place] [address] PCP - General Family Medicine 05/10/24 Aiyana Tucker OD [address] [place] [address] Referring Physician Optometry 11/11/23 Enrique Arias NP [address] [place] [address] Nurse Practitioner Family Medicine 05/10/24 Mentally Impaired Teacher Relationship Specialty Start Date End Date Fuentes Wilson MD [address] [place] [address] PCP - General Family Medicine 05/10/24 Aiyana Tucker OD [address] [facility] [place] [address] Referring Physician Optometry 11/11/23 Enrique Arias NP [address] [place] [address] Nurse Practitioner Family Medicine 05/10/24 Mentally Impaired Teacher Relationship Specialty Start Date End Date Fuentes Wilson MD [address] [place] [address] PCP - General Family Medicine 05/10/24 Aiyana Tucker OD [address] [place] [facility] [place] [address] Referring Physician Optometry 11/11/23 Enrique Arias NP [address] [place] [address] Nurse Practitioner Family Medicine 05/10/24 Mentally Impaired Teacher Relationship Specialty Start Date End Date Fuentes Wilson MD [address] [place] [address] PCP - General Family Medicine 05/10/24 Aiyana Tucker OD [address] [place] [address] Referring Physician Optometry 11/11/23 Enrique Arias NP [address] [place] [address] Nurse Practitioner Family Medicine 05/10/24 Mentally Impaired Teacher Relationship Specialty Start Date End Date Fuentes Wilson MD [address] [place] [address] PCP - General Family Medicine 05/10/24 Aiyana Tucker OD [address] [place] [address] Referring Physician Optometry 11/11/23 Enrique Arias NP [address] [place] [address] Nurse Practitioner Family Medicine 05/10/24 Mentally Impaired Teacher Relationship Specialty Start Date End Date Fuentes Wilson MD [address] [place] [address] PCP - General Family Medicine 05/10/24 Aiyana Tucker OD [address] [facility] [place] [address] Referring Physician Optometry 11/11/23 Enrique Arias NP [address] [place] [address] Nurse Practitioner Family Medicine 05/10/24 Mentally Impaired Teacher Relationship Specialty Start Date End Date Fuentes Wilson MD [address] [place] [address] PCP - General Family Medicine 05/10/24 Aiyana Tucker OD [address] [place] [address] Referring Physician Optometry 11/11/23 Enrique Arias NP [address] [place] [address] Nurse Practitioner Family Medicine 05/10/24 Mentally Impaired Teacher Relationship Specialty Start Date End Date Fuentes Wilson MD [address] [place] [address] PCP - General Family Medicine 05/10/24 Aiyana Tucker OD [address] [place] [address] Referring Physician Optometry 11/11/23 Enrique Arias NP [address] [place] [address] Nurse Practitioner Family Medicine 05/10/24 Mentally Impaired Teacher Relationship Specialty Start Date End Date Fuentes Wilson MD [address] [place] [address] PCP - General Family Medicine 05/10/24 Aiyana Tucker OD [address] [facility] [place] [address] Referring Physician Optometry 11/11/23 Enrique Arias NP [address] [place] [address] Nurse Practitioner Family Medicine 05/10/24 Mentally Impaired Teacher Relationship Specialty Start Date End Date Fuentes Wilson MD [address] [place] [address] PCP - General Family Medicine 05/10/24 Aiyana Tucker OD [address] [place] [address] Referring Physician Optometry 11/11/23 Enrique Arias NP [address] [place] [address] Nurse Practitioner Family Medicine 05/10/24 Mentally Impaired Teacher Relationship Specialty Start Date End Date Fuentes Wilson MD [address] [place] [address] PCP - General Family Medicine 05/10/24 Aiyana Tucker OD [address] [place] [address] Referring Physician Optometry 11/11/23 Enrique Arias NP [address] [place] [address] Nurse Practitioner Family Medicine 05/10/24 Mentally Impaired Teacher Relationship Specialty Start Date End Date Fuentes Wilson MD [address] [place] [address] PCP - General Family Medicine 05/10/24 Aiyana Tucker OD [address] [place] [facility] [place] [address] Referring Physician Optometry 11/11/23 Enrique Arias NP [address] [place] [address] Nurse Practitioner Family Medicine 05/10/24 Mentally Impaired Teacher Relationship Specialty Start Date End Date Fuentes Wilson MD [address] [place] [address] PCP - General Family Medicine 05/10/24 Aiyana Tucker, OD [address] [place] [address] Referring Physician Optometry 11/11/23 Enrique Arias NP [address] [place] [address] Nurse Practitioner Family Medicine 05/10/24 Mentally Impaired Teacher Relationship Specialty Start Date End Date Fuentes Wilson MD [address] [place] [address] PCP - General Family Medicine 05/10/24 Aiyana Tucker OD [address] [place] [facility] [place] [address] Referring Physician Optometry 11/11/23 Enrique Arias NP [address] [place] [address] Nurse Practitioner Family Medicine 05/10/24 Mentally Impaired Teacher Relationship Specialty Start Date End Date Fuentes Wilson MD [address] [place] [address] PCP - General Family Medicine 05/10/24 Aiyana Tucker OD [address] [place] [address] Referring Physician Optometry 11/11/23 Enrique Arias NP [address] [place] [address] Nurse Practitioner Family Medicine 05/10/24 Mentally Impaired Teacher Relationship Specialty Start Date End Date Enrique Arias SOFTWARE RELIABILITY ENGINEER-SURVEILLANCE INVESTIGATOR PCP - General Family Medicine 08/19/24 Mentally Impaired Teacher Relationship Specialty Start Date End Date Fuentes Wilson MD [address] [place] [address] PCP - General Family Medicine 05/10/24 Aiyana Tucker OD [address] [place] [address] Referring Physician Optometry 11/11/23 Enrique Arias NP [address] [place] [address] Nurse Practitioner Family Medicine 05/10/24 Mentally Impaired Teacher Relationship Specialty Start Date End Date Fuentes Wilson MD [address] [place] [address] PCP - General Family Medicine 05/10/24 Aiyana Tucker OD [address] [place] [address] Referring Physician Optometry 11/11/23 Enrique Arias NP [address] [place] [address] Nurse Practitioner Family Medicine 05/10/24 Goals (unrecognized section and content) Goals may be documented in a n alternate section (unrecognized sect ion and content) No Status Records FoundNo Status Records FoundNo Status Records FoundNo Status Records FoundNo Status Records FoundNo Status Records FoundNo Status Records Found INFORMATION SOURCE (unrecogn ized section and content) DATE CREATED AUTHOR 02/05/2022 [facility] DATE CREATED AUTHOR AUTHOR'S ORGANIZ ATION 11/07/2022 [facility] DATE CREATED AUTHOR AUTHOR'S ORGANIZ ATION 11/07/2022 [facility] DATE CREATED AUTHOR AUTHOR'S ORGANIZ ATION 01/08/2023 [facility] DATE CREATED AUTHOR AUTHOR'S ORGANIZ ATION 04/03/2023 [facility] DATE CREATED AUTHOR AUTHOR'S ORGANIZ ATION 04/11/[address] [facility] DATE CREATED AUTHOR AUTHOR'S ORGANIZ ATION 04/16/2025 [facility] EPIC Reason for Visit (unrecogniz ed section and content) Reason Comments Follow-up 6-7 month 3-vessel c oronary artery disease Specialty Diagnoses / Procedures Referred By Contac t Referred To Contact Cardiology Diagnoses 3-vessel coronary artery disease Procedures Follow Up In Cardiology Yohan Sadler MD [address] [place] [address] Phone: tel: fax: Yohan Sadler MD [address] [place] [address] Phone: tel: fax: Referral ID Status Reason Start Date Expiration Date V isits Requested Visits Authorized [id number] Authorized 08/19/2024 08/19/2025 1 1 Reason Comments Follow-up 9 months Reason Onset Date Comments Med Refill 06/06/2024 Reason Onset Date Comments Med Refill 06/23/2024 Reason Comments Follow-up Reason Comments Med Refill Reason Comments Post-op Blurred Vision Reason Onset Date Comments Med Refill 08/08/2024 Reason Onset Date Comments Med Refill 08/15/2024 Reason Comments Follow-up Cataract Reason Comments Follow-up 9m Referral ID Status Reason Start Date Expiration Date V isits Requested Visits Authorized [id number] Authorized 10/01/2023 09/30/2024 1 1 Reason Comments Retinal Injection Reason Comments Follow-up Blurred Vision Reason Comments Follow-up Retinal Injection Specialty Diagnoses / Procedures Referred By Gurvinder t Referred To Contact Ophthalmology Diagnoses 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 ([facility] [place]) Procedures [place] OFFICE/OUTPATIENT NEW HIGH MDM 60 MINUTES Makayla Ramos MD [address] [place] [address] Phone: tel: fax: Makayla Ramos MD [address] [place] [address] Phone: tel: fax: Referral ID Status Reason Start Date Expiration Date Visits Requested Visits Authorized [id number] Authorized Perform Procedure 12/06/2024 06/04/2025 12 12 Reason Comments Retinal Injection Retinopathy Reason Onset Date Comments Med Refill 01/30/2025 Reason Comments Retinal Injection Retinopathy Follow-up Reason Comments Diabetes Reason Onset Date Comments Med Refill 03/06/2025 Reason Onset Date Comments Med Refill 03/17/2025 Reason Comments Retinal Injection Diabetic Retinopathy Reason Onset Date Comments Med Refill 04/14/2025 FOR RECORDS PERTAINING TO PATIENTS WHO ARE [...] BE BASED ON THE PRIMARY CLINICAL RECORDS. [employer] provides no warranty or guarantee of the accuracy or completeness of information in this document.
[2025-04-21 06:51] LABS: Hematocrit 43.1 % (42.0-54.0); Hemoglobin 14.3 g/dL (14.0-18.0); Immature Granulocytes Abs Auto 0.02 10^3/uL (0.00-0.03); Immature Granulocytes Pct Auto 0.3 % (0.0-0.5); Lymphocytes Absolute Auto 1.6 10^3/uL (1.2-3.8); Mean Corpuscular HGB Conc 33.2 g/dL (29.9-35.2); Mean Corpuscular Hemoglobin 29.1 pg (25.9-34.0); Mean Corpuscular Volume 87.6 fL (80.0-94.0); Platelet Count 152 10^3/uL (150-450); Red Blood Count 4.92 10^6/uL (4.70-6.10); White Blood Count 7.6 10^3/uL (4.0-11.0)
[2025-04-21 08:28] LABS: Alanine Aminotransferase 46 U/L (16-63); Anion Gap 11.5; Aspartate Amino Transferase 26 U/L (15-37); Blood Urea Nitrogen 40.0 mg/dL (7.0-18.0); Calcium 8.8 mg/dL (8.5-10.1); Carbon Dioxide 28.1 mmol/L (21.0-32.0); Chloride 109 mmol/L (98-107); Cholesterol 147 mg/dL (<=200); Estimated GFR (African America >60 (>=60 mL/min/1.73m^2); Estimated GFR (Non-African Ame 55 (>=60 mL/min/1.73m^2); Glucose 138 mg/dL (74-106); HDL Cholesterol 49 mg/dL (40-60); Potassium 4.6 mmol/L (3.5-5.1); Sodium 144 mmol/L (136-145); Triglycerides 272 mg/dL (<=150); VLDL CHOLESTEROL 54.4 mg/dL
== END 2025-04-21 06:24 | disposition home or self-care (01) ==
LOC: LAB 06:24
PROVIDERS: PCP Nurse Practitioner; Visit Provider Internal Medicine Cardiovascular Disease
DX: E78.5 Hyperlipidemia, unspecified (principal); I25.10 Atherosclerotic heart disease of native coronary artery without angina pectoris; I42.9 Cardiomyopathy, unspecified; E13.9 Other specified diabetes mellitus without complications
CPT/HCPCS: 36415; 80048; 80061; 84450; 84460; 85025

== ENCOUNTER 2025-04-24 06:30 | Outpatient (OUT) | payer BC, SELFPAY ==
--- OUTSIDE RECORDS SUMMARY | 2025-04-24 06:35 | XMS_ITS | CCD ---
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 Role Phone MD Yohan Sadler Attending Provider [phone] MD Angelo Pearce Primary Care Provider Shaikh Pearce Unavailable Unavailable Unavailable Yohan Sdaler Referring Unavailable Yohan Sadler Attending Unavailable Yohan [...] Fuentes Wilson MD Primary Care Provider Arias ACID RECOVERY OPERATOR, [facility] Unavailable Arias FIRE WATCHER-SOLVENT MIXER, [facility] Prov ider Arias ACID RECOVERY OPERATOR, Enrique Unavailable Arias FIRE WATCHER-SOLVENT MIXER, [facility] Prov ider Unavailable YOHAN SADLER Attending Unavailable YOHAN SADLER Referring Unavailable ARIASChristianaCare UnavailYOHAN Sanchez Attending Unavailable YOHAN SADLER Referring Unavailable ARIASChristianaCare UnavailGREGORY Wu Attending Unavailable GREGORY SOLIS Attending [...] ENRIQUE ARIAS Attending UnavailGREGORY Wu Attending Unavailable Allergies Allergy Classification Reported Allergen(s) Allergy Type Date of Onset Reaction(s) Facility (4 sources) glipiZIDE; Translations: [GLIPIZIDE] Drug Allergy 10-01-2023 [facility] (20 sources) glipiZIDE Drug Allergy 10-01-2023 [facility] [...] by mouth at bedtime fish oil concentrate ([place]-3) 1000 MG capsule Indications: Hyperlipidemia, unspecified hyperlipidemia [...] SL tablet Indications: Coronary artery disease involving [place] coronary artery of [place] heart without angina pectoris Place 1 tablet [...] 5 mL 1 05/24/2024 05/25/2024 Active omega 9-lsi-vxh-fish oil (Fish OiL) 1,000 (120-180) mg capsule (1 source) omega 3-dha-epa- fish oil (Fish OiL) 1,000 (120-180) mg capsule Take by mouth. Active rosuvastatin calcium 20 mg oral tablet (20 sources) HMG-CoA Reductase Inhibitor Start: 12-25-19 End: 08-19-20 take 1 tablet by mouth at bedtime rosuvastatin (Crestor) 20 MG tablet Indications: Hyperlipidemia, unspecified hyperlipidemia type Take 1 tablet (20 mg) by mouth at bedtime 90 tablet 1 04/15/2025 07/14/2025 Active SITagliptin 100 mg oral tablet (1 source) Dipeptidyl Peptidase 4 Inhibitor Start: 10-07-19 End: 01-05-20 take 1 tablet by mouth in the morning SITagliptin (Januvia) 100 MG tablet Indications: Type 2 diabetes mellitus without complication, without long-term current use of insulin ([facility]) Take 1 tablet (100 mg) by mouth in the morning. 90 tablet 0 10/07/2023 01/05/2024 Active valsartan 80 mg oral tablet (20 sources) Angiotensin 2 Receptor Evin Start: 03-19-20 End: 06-17-20 take 1 tablet by mouth once daily valsartan (Diovan) 80 MG tablet Indications: Coronary artery disease involving [place] coronary artery of [place] heart without angina pectoris Take 1 tablet (80 mg) by mouth Daily 90 tablet 03/19/2025 06/17/2025 Active Start: 11-05-2022 End: 03-17-2025 take 1 tablet by mouth once daily valsartan (Diovan) 80 MG tablet Indications: Coronary artery disease involving [place] coronary artery of [place] heart without angina pectoris Take 1 tablet [...] Blood Gluc Receiv er (FreeStyle Fabian 2 [place]) device (7 sources) Start: 12-02-2023 End: 07-13-2024 Continuous Blood Gluc Receiv er (FreeStyle Fabian 2 [place]) device Indications: Type 2 diabetes mellitus without complication, without long-term current use of insulin (CMS/HCC) 1 each Daily 1 each 12/02/2023 07/13/2024 Discontinued (Med list cleanup) Start: 12-02-2023 End: 12-01-2024 Continuous Blood Gluc Receiv er (FreeStyle Fabian 2 [place]) device Indications: Type 2 diabetes mellitus without [...] days. 5 mL 1 05/24/2024 06/07/2024 Active Problems Active Problems Problem Classification Problem [...] [Coronary atherosclerosis of unspecified type of vessel, [place] or graft] Onset: 11-21-2022 Chronic Comment on [...] Test Name Value Interpretation Reference Range Facility ALL CBC WITH AUTO DIFFon BASOPHILS ABSOLUTE AUTO 0 [facility] Basophils/100 WBC (Bld) 0.5 % 0.2 - 2.0 % [facility] Eosinophils/100 WBC (Bld) 3.7 % 0.9 - 7.0 % [facility] Erythrocyte distribution width (RBC) [Ratio] 13.1 % 11.0 - 15.0 % [facility] Hematocrit (Bld) [Volume fraction] 43.1 % 42.0 - 54.0 % [facility] Hemoglobin (Bld) [Mass/Vol] 14.3 g/dL 14.0 - 18.0 g/dL [facility] IMMATURE [facility]OCYTES [facility] Immature granulocytes/100 WBC (Bld) 0.3 % 0.0 - 0.5 % [facility] LYMPHOCYTES ABSOLUTE AUTO 1.6 [facility] Lymphocytes/100 WBC (Bld) 20.9 % 20.5 - 60.0 % [facility] MCH (RBC) [Entitic mass] 29.1 pg 25.9 - 34.0 pg [facility] MCHC (RBC) [Mass/Vol] 33.2 g/dL 29.9 - 35.2 g/dL [facility] MCV (RBC) [Entitic vol] 87.6 fL 80.0 - 94.0 fL [facility] MONOCYTES ABSOLUTE AUTO 0.5 [facility] Monocytes/100 WBC (Bld) 6.7 % 1.7 - 12.0 % [facility] NEUTROPHILS ABSOLUTE AUTO 5.1 [facility] Neutrophils/100 WBC (Bld) 67.9 % 43.0 - 75.0 % [facility] Platelet mean volume (Bld) [Entitic vol] 11.6 fL 9.5 - 13.5 fL [facility] EO # 0.3 [facility]92 [facility] WBC 7.6 [facility] Left eye Ophthalmologic gatito tmenton 04-14-2025 [facility] Radiology Study observation (narrative) [facility] Intravitreal Injection, Phar macologic Agent - OD - Right Eyeon 04-07-2025 [facility] Radiology Study observation (narrative) [facility] Optical coherence tomography study reporton 04-07-2025 [facility] Radiology Study observation (narrative) [facility] US RENAL BIon 03-16-2025 [place] [id number] Ultrasound Report Signed Patient: GIAN SANDOVAL MR#: [id number] : 1960 Acct:[id number] Age/Sex: 64 / M ADM Date: 03/15/25 Loc: US Attending Dr: Francisca Quintana NP Ordering Physician: Francisca Quintana NP Date of Service: 03/15/25 Procedure(s): US renal BI Accession Number(s): [id number] cc: Francisca Quintana NP [address] [address] Patient Name: GIAN SANDOVAL MRN: [id number] date: 1960 Sex: M Assigned Patient Location: US Current Patient Location: Accession/Order Number: [id number] Exam Date: 03/16/2025 08:16 Report Date: 03/16/2025 [...] Patino M.D. 03/16/2025 8:18 AM Dictation Location: [place] [address] Electronically authenticated by: [id number] Y Date: 03/16/2025 08:18 Dictated By: Maryam Patino M.D. Signed By: 03/16/25819 DD/ 7 TD/TT: Fuel Cell Technician: [facility] Radiology Radiologelodia paredes MD - 03/16/2025 [place] [address] Ultrasound Report Signed Patient: GIAN SANDOVAL MR#: [id number] : 1960 Acct:[id number] Age/Sex: 64 / M ADM Date: 03/15/25 Loc: US Attending Dr: Francisca Quintana NP Ordering Physician: Francisca Quintana NP Date of Service: 03/15/25 Procedure(s): US renal BI Accession Number(s): [id number] cc: Francisca Quintana NP The [address] [address] Patient Name: GIAN SANDOVAL MRN: [facility]:[id number] date: 1960 Sex: M Assigned Patient Location: [place] Current Patient Location: Accession/Order Number: [id number] Exam Date: 03/16/2025 08:16 Report Date: 03/16/2025 [...] Patino M.D. 03/16/2025 8:18 AM Dictation Location: [place] [address] Electronically authenticated by: [id number] Y Date: 03/16/2025 08:18 Dictated By: Maryam Patino M.D. Signed By: 03/16/25819 DD/ 7 TD/TT: Fuel Cell Technician: [facility] Radiology Study observation (narrative) [facility] US RENAL BIOrdered By: [facility] Radiology on 03-16-2025 [facility] Work Phone: Left eye Ophthalmologic gatito tmenton 03-07-2025 [facility] Radiology Study observation (narrative) [facility] HbA1c (Bld) [Mass fraction]o n 02-22-2025 Interpretation and review of laboratory results Abnormal [facility] - Hematology and Cell countson 02-22-2025 HbA1c (Bld) [Mass fraction] 7.5 % [facility] Intravitreal Injection, Phar macologic Agent - OD - Right Eyeon 02-21-2025 [facility] Radiology Study observation (narrative) [facility] Optical coherence tomography study reporton 02-21-2025 [facility] Radiology Study observation (narrative) [facility] ALL BASIC METABOLIC PANELon 02-20-2025 Anion gap [Moles/Vol] 12.1 mmol/L [facility] Calcium [Mass/Vol] 9.1 mg/dL 8.5 - 10. 1 mg/dL [facility] Chloride [Moles/Vol] 105 mmol/L 98 - 10 7 mmol/L [facility] CO2 [Moles/Vol] 28.2 mmol/L 21.0 - 32.0 mmol/L [facility] Creatinine [Mass/Vol] 1.82 mg/dL High 0.70 - 1.30 mg/dL [facility] GFR/1.73 sq M.predicted CKD-EPI (S/P/Bld) [Vol rate/Area] 45 Low >=60 mL/min/1.73 m 2 [facility] Glucose [Mass/Vol] 82 mg/dL 74 - 106 mg/dL [facility] Interpretation and review of laboratory results Abnormal [facility] Potassium [Moles/Vol] 4.3 mmol/L 3.5 - 5.1 mmol/L [facility] Sodium [Moles/Vol] 141 mmol/L 136 - 145 mmol/L [facility]H EGFR-NON AF [place] 37 Low >=60 mL/min/1.73 m 2 [facility] Urea nitrogen [Mass/Vol] 34 mg/dL High 7.0 - 18.0 mg/dL [facility] Urea nitrogen/Creatinine [Mass ratio] 18.7 mg/mg [facility] Left eye Ophthalmologic gatito tment01-17-2025 [facility] Radiology Study observation (narrative) [facility] Intravitreal Injection, Phar macologic Agent - OD - Right Eyeon 01-10-2025 [facility] Radiology Study observation (narrative) [facility] Optical coherence tomography study reporton 01-10-2025 [facility] Radiology Study observation (narrative) [facility] Left eye Ophthalmologic gatito tmenton 12-13-2024 [facility] Radiology Study observation (narrative) [facility] Intravitreal Injection, Phar macologic Agent - OD - Right Eyeon 12-06-2024 [facility] Radiology Study observation (narrative) [facility] Optical coherence tomography study reporton 12-06-2024 [facility] Radiology Study observation (narrative) [facility] Left eye Ophthalmologic gatito tmenton 11-08-2024 [facility] Radiology Study observation (narrative) [facility] Intravitreal Injection, Phar macologic Agent - OD - Right Eyeon 11-02-2024 [facility] Radiology Study observation (narrative) [facility] Optical coherence tomography study reporton 11-02-2024 [facility] Radiology Study observation (narrative) [facility] Left eye Ophthalmologic gatito tmenton 10-11-2024 [facility] Radiology Study observation (narrative) [facility] ALL CBC WITH AUTO DIFFon BASOPHILS ABSOLUTE AUTO 0 [facility] Basophils/100 WBC (Bld) 0.3 % 0.2 - 2.0 % [facility] Eosinophils/100 WBC (Bld) 2.7 % 0.9 - 7.0 % [facility] Erythrocyte distribution width (RBC) [Ratio] 12.9 % 11.0 - 15.0 % [facility] Hematocrit (Bld) [Volume fraction] 45.4 % 42.0 - 54.0 % [facility] Hemoglobin (Bld) [Mass/Vol] 14.7 g/dL 14.0 - 18.0 g/dL [facility] IMMATURE GRANULOCYTES ABS AUTO 0.02 [facility] Immature granulocytes/100 WBC (Bld) 0.2 % 0.0 - 0.5 % [facility] Interpretation and review of laboratory results Abnormal [facility] LYMPHOCYTES ABSOLUTE AUTO 1.6 [facility] Lymphocytes/100 WBC (Bld) 18.8 % Low 20.5 - 60.0 % [facility] MCH (RBC) [Entitic mass] 28.1 pg 25.9 - 34.0 pg [facility] MCHC (RBC) [Mass/Vol] 32.4 g/dL 29.9 - 35.2 g/dL [facility] MCV (RBC) [Entitic vol] 86.6 fL 80.0 - 94.0 fL [facility] MONOCYTES ABSOLUTE AUTO 0.6 [facility] Monocytes/100 WBC (Bld) 6.4 % 1.7 - 12.0 % [facility] NEUTROPHILS ABSOLUTE AUTO 6.2 [facility] Neutrophils/100 WBC (Bld) 71.6 % 43.0 - 75.0 % [facility] Platelet mean volume (Bld) [Entitic vol] 11.6 fL 9.5 - 13.5 fL [facility]H EO # 0.2 [facility] PLT 159 [facility] RBC 5.24 [facility] WBC 8.6 [facility] Intravitreal Injection, Phar macologic Agent - OD - Right Eyeon 09-27-2024 [facility] Radiology Study observation (narrative) [facility] Optical coherence tomography study reporton 09-20-2024 [facility] Radiology Study observation (narrative) [facility] Optical coherence tomography study reporton 08-05-2024 [facility] Radiology Study observation (narrative) [facility] Optical coherence tomography study reporton 05-25-2024 [facility] Right Eye Quality was poor. Left Eye Quality was poor. [facility] Optical coherence tomography study reporton 05-24-2024 Radiology Study observation (narrative) [facility] US Eye+Orbit - bilateralon 0 05-24-2024 Diagnosis: Cataract both eyes (OU) Testing Indication: Performed for preop measurements in the determination of an intraocular lens (IOL) for both eyes (OU) Test Reliability: Good quality both eyes (OU) Interpretation: Good measurements for intraocular lens (IOL) calculation purposes. Calculation made for both eyes (OU). [facility] Radiology Study observation (narrative) [facility] MICROALB CREAT RATIO RAN DOMon 10-06-2023 CREATININE URINE RANDOM 145.39 mg/dL 20.00 - 300.00 mg/dL [facility] Interpretation and review of laboratory results Abnormal [facility] MICROALBUM CREATININE RATIO UR 38.5 mg/g High 0.0 - 29.9 mg/g [facility] Comment on above: NO MICROALBUMINURIA 0-29 MG/G CLINICAL MICROALBUMINURIA 30-300 MG/G MACROALBUMINURIA >300 MG/G MICROALBUMIN URINE RANDOM 5.6 mg/dL NINF - 30.0 mg/dL [facility] SGOTon 01-01-2023 AST [Catalytic activity/Vol] 23 U/L Normal 15-37 [facility] Comment on above: Performed By: #### A LT, AST #### [facility] [address] [place] [address] [address] Jeremías Gaffney [facility] 01-01-2023 ALT [Catalytic activity/Vol] 46 U/L Normal 16-63 [facility] Comment on above: Performed By: #### A LT, AST #### [facility] [address] [place], [place] [address] Dr. Jeremías Gaffney CBC AUTO DIFFon 11-19-2022 BASO # 0.0 103/ul Normal 0.0-0.1 [facility] Comment on above: Performed By: #### C BC #### [facility] [address] [place] [address] Dr. Jeremías Gaffney Basophils/100 WBC (Bld) 0.5 % Normal 0.2-2.0 [facility] Comment on above: Performed By: #### C BC #### [facility] [address] [place] [address] Dr. Jeremías Gaffney EO # 0.3 103/ul Normal 0.0-0.7 [facility] Comment on above: Performed By: #### C BC #### [facility] [address] [place] [address] Dr. Jeremías Gaffney Eosinophils/100 WBC (Bld) 3.2 % Normal 0.9-7.0 [facility] Comment on above: Performed By: #### C BC #### [facility] [address] [place] [address] Dr. Jeremías Gaffney Erythrocyte distribution width (RBC) [Ratio] 12.6 % Normal 11.0-15.0 [facility] Comment on above: Performed By: #### C BC #### [facility] [address] [place] [address] Dr. Jeremías Gaffney Hematocrit (Bld) [Volume fraction] 44.5 % Normal 42.0-54.0 [facility] Comment on above: Performed By: #### C BC #### [facility] [address] [place] [address] Dr. Jeremías Gaffney Hemoglobin (Bld) [Mass/Vol] 14.4 g/dL Normal 14.0-18.0 [facility] Comment on above: Performed By: #### C BC #### [facility] [address] [place] [address] Dr. Jeremías Gaffney IG # 0.02 10e3/ul Normal 0.00-0.03 [facility] Comment on above: Performed By: #### C BC #### [facility] [address] [place] [address] Dr. Jeremías Gaffney IG % 0.2 % Normal 0.0-0.5 [facility] Comment on above: Performed By: #### C BC #### [facility] [address] [place] [address] Dr. Jeremías Gaffney LYMPH # 1.7 103/ul Normal 1.2-3.8 [facility] Comment on above: Performed By: #### C BC #### [facility] [address] [place] [address] Dr. Jeremías Gaffney Lymphocytes/100 WBC (Bld) 19.7 % Critically low 20.5-60.0 [facility] Comment on above: Performed By: #### C BC #### [facility] [address] [place] [address] Dr. Jeremías Gaffney MANUAL DIFF REQ NO Normal [facility] Comment on above: Performed By: #### C BC #### [facility] [address] [place] [address] Dr. Jeremías Gaffney MCH (RBC) [Entitic mass] 27.7 pg Normal 25.9-34.0 [facility] Comment on above: Performed By: #### C BC #### [facility] [address] [place] [address] Dr. Jeremías Gaffney MCHC (RBC) [Mass/Vol] 32.4 g/dL Normal 29.9-35.2 [facility] Comment on above: Performed By: #### C BC #### [facility] [address] [place] [address] Dr. Jeremías Gaffney MCV (RBC) [Entitic vol] 85.7 fL Normal 80.0-94.0 [facility] Comment on above: Performed By: #### C BC #### [facility] [address] [place] [address] Dr. Jeremías Gaffney MONO # 0.5 103/ul Normal 0.3-0.8 [facility] Comment on above: Performed By: #### C BC #### [facility] [address] [place] [address] Dr. Jeremías Gaffney Monocytes/100 WBC (Bld) 5.6 % Normal 1.7-12.0 [facility] Comment on above: Performed By: #### C BC #### [facility] [address] [place] [address] [address] Jeremías Gaffney NEUT # 6.1 103/ul Normal 1.4-6.5 [facility] Comment on above: Performed By: #### C BC #### [facility] [address] [place] [address] [address] Jeremías Gaffney Neutrophils/100 WBC (Bld) 70.8 % Normal 43.0-75.0 [facility] Comment on above: Performed By: #### C BC #### [facility] [address] [place] [address] [address] Jeremías Gaffney Platelet mean volume (Bld) [Entitic vol] 12.3 fL Normal 9.5-13.5 [facility] Comment on above: Performed By: #### C BC #### [facility] [address] [place] [address] Dr. Jeremías Gaffney PLT 135 103/ul Critically low 150-450 [facility] Comment on above: Performed By: #### C BC #### [facility] [address] [place] [address] [address] Jeremías Gaffney RBC 5.19 106/ul Normal 4.70-6.10 [facility] Comment on above: Performed By: #### C BC #### [facility] [address] [place] [address] Dr. Jeremías Gaffney WBC 8.6 103/ul Normal 4.0-11.0 [facility] Comment on above: Performed By: #### C BC #### [facility] [address] [place] [address] Dr. Jeremías Gaffney GLYCOHEMOGLOBIN A1Con 2022 ADA RECOMMENDATION SEE BELOW Normal [facility] Comment on above: Result Comment: ADA RECOMMENDED LIMIT 4.0 - 6.0 ADA THERAPEUTIC TARGET < 7.0 ACTION SUGGESTED > 7.0 Performed By: #### A LT, AST #### [facility] [address] [place] [address] Dr. Jeremías Gaffney Glucose [Mass/Vol] 137 mg/dL Normal [facility] Comment on above: Performed By: #### A LT, AST #### [facility] [address] [place] [address] [address] Jeremías Gaffney HbA1c (Bld) [Mass fraction] 6.4 % Critically high 4.5-6.2 [facility] Comment on above: Performed By: #### A LT, AST #### [facility] [address] [place] [address] [address] Jeremías Gaffney LIPID PROFILEon 11-19-2022 CHOL-HDL RATIO NORM SEE BELOW Normal [facility] Comment on above: Result Comment: 3.3 - 4.4 LOW RISK 4.4 - 7.1 AVERAGE RISK 7.1 - 11.0 MODERATE RISK >11.0 HIGH RISK Performed By: #### A LT, AST #### [facility] [address] [place] [address] Dr. Jeremías Gaffney Cholesterol [Mass/Vol] 140 mg/dL Normal <=200 [facility] Comment on above: Performed By: #### A LT, AST #### [facility] [address] [place] [address] [address] Jeremías Gaffney Cholesterol in HDL [Mass/Vol] 53 mg/dL Normal 40-60 [facility] Comment on above: Performed By: #### A LT, AST #### [facility] [address] [place] [address] [address] Jeremías Gaffney Cholesterol in LDL [Mass/Vol] 60.0 mg/dL Normal [facility] Comment on above: Performed By: #### A LT, AST #### [facility] [address] [place] [address] [address] Jeremías Gaffney Cholesterol.total/Ch olesterol in HDL [Mass ratio] 2.6 {ratio} Normal [facility] Comment on above: Performed By: #### A LT, AST #### [facility] [address] [place] [address] [address] Jeremías Gaffney HDL NORMAL > or = 60 mg/dl - LO W CARDIOVASCULAR RISK <40 mg/dl - HIGH CARDIOVASCULAR RISK Normal [facility] Comment on above: Performed By: #### A LT, AST #### [facility] [address] [place] [address] [address] Jeremías Gaffney LDL CALC NORMAL SEE BELOW Normal [facility] Comment on above: Result Comment: <100 mg/dl OPTIMAL 100 - 129 mg/dl NEAR OR ABOVE OPTIMAL 130 - 159 mg/dl BORDERLINE HIGH 160 - 189 mg/dl HIGH >190 mg/dl VERY HIGH Performed By: #### A LT, AST #### [facility] [address] [place] [address] [address] Jeremías Gaffney Triglyceride [Mass/Vol] 135 mg/dL Normal <=150 [facility] Comment on above: Performed By: #### A LT, AST #### [facility] [address] [place] [address] Dr. Jeremías Gaffney VLDL CALC 27.0 mg/dL Normal [facility] Comment on above: Performed By: #### A LT, AST #### [facility] [address] [place] [address] Dr. Jeremías Gaffney PROF CHEM 8 (BAS METB)on Anion gap [Moles/Vol] 12.0 mmol/L Normal [facility] Comment on above: Performed By: #### A LT, AST, BMP, LIPID #### [facility] [facility] [address] [place] [address] Dr. Jeremías Gaffney Calcium [Mass/Vol] 9.4 mg/dL Normal 8.5-10.1 [facility] Comment on above: Performed By: #### A LT, AST, BMP, LIPID #### [facility] [address] [place] [address] Dr. Jeremías Gaffney Chloride [Moles/Vol] 105 mmol/L Normal 98-107 [facility] Comment on above: Performed By: #### A LT, AST, BMP, LIPID #### [facility] [address] [place] [address] Dr. Jeremías Gaffney CO2 [Moles/Vol] 29.8 mmol/L Normal 21.0-32.0 [facility] Comment on above: Performed By: #### A LT, AST, BMP, LIPID #### [facility] [address] [address] [address] Jeremías Gaffney Creatinine [Mass/Vol] 0.77 mg/dL Normal 0.70-1.30 [facility] Comment on above: Performed By: #### A LT, AST, BMP, LIPID #### [facility] [address] [address] [address] Jeremías Gaffney EGFR-AF [place]ER >60 Normal >=60 [facility] Comment on above: Performed By: #### A LT, AST, BMP, LIPID #### [facility] [address] [address] [address] Jeremías Gaffney EGFR-NON AF [place] >60 Normal >=60 [facility] Comment on above: Performed By: #### A LT, AST, BMP, LIPID #### [facility] [address] [address] [address] Jeremías Gaffney Glucose [Mass/Vol] 132 mg/dL Critically high 74-106 [facility] Comment on above: Performed By: #### A LT, AST, BMP, LIPID #### [facility] [address] [address] [address] Jeremías Gaffney Potassium [Moles/Vol] 4.8 mmol/L Normal 3.5-5.1 [facility] Comment on above: Performed By: #### A LT, AST, BMP, LIPID #### [facility] [address] [address] [address] Jeremías Gaffney Sodium [Moles/Vol] 142 mmol/L Normal 136-145 [facility] Comment on above: Performed By: #### A LT, AST, BMP, LIPID #### [facility] [address] [address] [address] Jeremías Gaffney Urea nitrogen [Mass/Vol] 20.0 mg/dL Critically high 7.0-18.0 [facility] Comment on above: Performed By: #### A LT, AST, BMP, LIPID #### [facility] [address] [address] [address] Jeremías Gaffney Urea nitrogen/Creatinine [Mass ratio] 26.0 mg/mg Normal [facility] Comment on above: Performed By: #### A LT, AST, BMP, LIPID #### [facility] [address] [address] [address] Jeremías WIGGINSOTon 11-19-2022 AST [Catalytic activity/Vol] 49 U/L Critically high 15-37 [facility] Comment on above: Performed By: #### A LT, AST, BMP, LIPID #### [facility] [address] [address] [address] Jeremías Gaffney SGPTon 11-19-2022 ALT [Catalytic activity/Vol] 81 U/L Critically high 16-63 [facility] Comment on above: Performed By: #### A LT, AST #### [facility] [address] [address] [address] Jeremías Gaffney Office Visit (Cardiology)on 11-05-2022 [...] mid RCA and left circumflex with mature [id number]-[id number] and left to left collateral network. Ejection [...] Recorded: 05Nov2022 10:44AM Heart Rate76, L Radial Afiqafos739, RUE, Sitting Msguixlls33, RUE, Sitting Height5 ft 5 in Mohwvz445 lb BMI Jmmiemjmkj50.95 kg/m2 BSA Calculated1.94 To (more content not included)... Normal [employer] Tobacco Screening.on 023 Adult depression screening assessment No [facility] [employer] DO Work Phone: Fall risk assessment a) No falls within the last year [facility] [employer] DO Work Phone: Tobacco use status CPHS b) No [facility] [employer] DO Work Phone: US ARTERY LEG RTon [...] GARRETT MONTAGUE Date: 2022-06-23 20:08 Normal [facility] CBC AUTO DIFFon 06-18-2022 BASO # 0.1 103/ul Normal 0.0-0.1 [facility] Comment on above: Performed By: #### C BC #### [facility] [address] [place] [address] Dr. Jeremías Gaffney Basophils/100 WBC (Bld) 0.5 % Normal 0.2-2.0 [facility] Comment on above: Performed By: #### C BC #### [facility] [address] [place] [address] Dr. Jeremías Gaffney EO # 0.2 103/ul Normal 0.0-0.7 [facility] Comment on above: Performed By: #### C BC #### [facility] [address] [place] [address] Dr. Jeremías Gaffney Eosinophils/100 WBC (Bld) 1.5 % Normal 0.9-7.0 [facility] Comment on above: Performed By: #### C BC #### [facility] [address] [place] [address] Dr. Jeremías Gaffney Erythrocyte distribution width (RBC) [Ratio] 13.3 % Normal 11.0-15.0 [facility] Comment on above: Performed By: #### C BC #### [facility] [address] [place] [address] Dr. Jeremías Gaffney Hematocrit (Bld) [Volume fraction] 43.2 % Normal 42.0-54.0 [facility] Comment on above: Performed By: #### C BC #### [facility] [address] [place] [address] Dr. Jeremías Gaffney Hemoglobin (Bld) [Mass/Vol] 14.4 g/dL Normal 14.0-18.0 [facility] Comment on above: Performed By: #### C BC #### [facility] [address] [address] [address] Jeremías Gaffney IG # 0.04 10e3/ul Critically high 0.00-0.03 [facility] Comment on above: Performed By: #### C BC #### [facility] [address] [place] [address] Dr. Jeremías Gaffney IG % 0.4 % Normal 0.0-0.5 [facility] Comment on above: Performed By: #### C BC #### [facility] [address] [place] [address] Dr. Jeremías Gaffney LYMPH # 1.6 103/ul Normal 1.2-3.8 [facility] Comment on above: Performed By: #### C BC #### [facility] [address] [place] [address] Dr. Jeremías Gaffney Lymphocytes/100 WBC (Bld) 15.0 % Critically low 20.5-60.0 [facility] Comment on above: Performed By: #### C BC #### [facility] [address] [place] [address] Dr. Jeremías Gaffney MANUAL DIFF REQ NO Normal [facility] Comment on above: Performed By: #### C BC #### [facility] [address] [place] [address] Dr. Jeremías Gaffney MCH (RBC) [Entitic mass] 28.7 pg Normal 25.9-34.0 [facility] Comment on above: Performed By: #### C BC #### [facility] [address] [place] [address] Dr. Jeremías Gaffney MCHC (RBC) [Mass/Vol] 33.3 g/dL Normal 29.9-35.2 [facility] Comment on above: Performed By: #### C BC #### [facility] [address] [place] [address] Dr. Jeremías Gaffney MCV (RBC) [Entitic vol] 86.1 fL Normal 80.0-94.0 [facility] Comment on above: Performed By: #### C BC #### [facility] [address] [place] [address] Dr. Jeremías Gaffney MONO # 0.5 103/ul Normal 0.3-0.8 [facility] Comment on above: Performed By: #### C BC #### [facility] [address] [place] [address] Dr. Jeremías Gaffney Monocytes/100 WBC (Bld) 4.4 % Normal 1.7-12.0 [facility] Comment on above: Performed By: #### C BC #### [facility] [address] [place] [address] Dr. Jeremías Gaffney NEUT # 8.1 103/ul Critically high 1.4-6.5 [facility] Comment on above: Performed By: #### C BC #### [facility] [address] [place] [address] Dr. Jeremías Gaffney Neutrophils/100 WBC (Bld) 78.2 % Critically high 43.0-75.0 [facility] Comment on above: Performed By: #### C BC #### [facility] [address] [place] [address] Dr. Jeremías Gaffney Platelet mean volume (Bld) [Entitic vol] 11.9 fL Normal 9.5-13.5 [facility] Comment on above: Performed By: #### C BC #### [facility] [address] [place] [address] Dr. Jeremías Gaffney PLT 161 103/ul Normal 150-450 [facility] Comment on above: Performed By: #### C BC #### [facility] [address] [place] [address] Dr. Jeremías Gaffney RBC 5.02 106/ul Normal 4.70-6.10 [facility] Comment on above: Performed By: #### C BC #### [facility] [address] [address] [address] Jeremías Gaffney WBC 10.4 103/ul Normal 4.0-11.0 [facility] Comment on above: Performed By: #### C BC #### [facility] [address] [place] [address] Dr. Jeremías Gaffney GLYCOHEMOGLOBIN A1Con 2021 ADA RECOMMENDATION SEE BELOW Normal [facility] Comment on above: Result Comment: ADA RECOMMENDED LIMIT 4.0 - 6.0 ADA THERAPEUTIC TARGET < 7.0 ACTION SUGGESTED > 7.0 Performed By: #### A 1C #### [facility] [address] [place] [address] Dr. Jeremías Gaffney Glucose [Mass/Vol] 134 mg/dL Normal [facility] Comment on above: Performed By: #### A 1C #### [facility] [address] [place] [address] Dr. Jeremías Gaffney HbA1c (Bld) [Mass fraction] 6.3 % Critically high 4.5-6.2 [facility] Comment on above: Performed By: #### A 1C #### [facility] [address] [place] [address] Dr. Jeremías Gaffney LIPID PROFILEon 06-18-2022 CHOL-HDL RATIO NORM SEE BELOW Normal [facility] Comment on above: Result Comment: 3.3 - 4.4 LOW RISK 4.4 - 7.1 AVERAGE RISK 7.1 - 11.0 MODERATE RISK >11.0 HIGH RISK Performed By: #### C MP, LIPID #### [facility] [address] [place] [address] Dr. Jeremías Gaffney Cholesterol [Mass/Vol] 110 mg/dL Normal <=200 [facility] Comment on above: Performed By: #### C MP, LIPID #### [facility] [address] [address] [address] Jeremías Gaffney Cholesterol in HDL [Mass/Vol] 52 mg/dL Normal 40-60 [facility] Comment on above: Performed By: #### C MP, LIPID #### [facility] [address] [address] [address] Jeremías Gaffney Cholesterol in LDL [Mass/Vol] 29.2 mg/dL Normal [facility] Comment on above: Performed By: #### C MP, LIPID #### [facility] [address] [address] [address] Jeremías Gaffney Cholesterol.total/Ch olesterol in HDL [Mass ratio] 2.1 {ratio} Normal [facility] Comment on above: Performed By: #### C MP, LIPID #### [facility] [address] [address] [address] Jeremías Gaffney HDL NORMAL > or = 60 mg/dl - LO W CARDIOVASCULAR RISK <40 mg/dl - HIGH CARDIOVASCULAR RISK Normal [facility] Comment on above: Performed By: #### C MP, LIPID #### [facility] [address] [place] [address] Dr. Jeremías Gaffney LDL CALC NORMAL SEE BELOW Normal [facility] Comment on above: Result Comment: <100 mg/dl OPTIMAL 100 - 129 mg/dl NEAR OR ABOVE OPTIMAL 130 - 159 mg/dl BORDERLINE HIGH 160 - 189 mg/dl HIGH >190 mg/dl VERY HIGH Performed By: #### C MP, LIPID #### [facility] [address] [place] [address] Dr. Jeremías Gaffney Triglyceride [Mass/Vol] 144 mg/dL Normal <=150 [facility] Comment on above: Performed By: #### C MP, LIPID #### [facility] [address] [address] [address] Jeremías Gaffney VLDL CALC 28.8 mg/dL Normal [facility] Comment on above: Performed By: #### C MP, LIPID #### [facility] [address] [address] [address] Jeremías Gaffney PROF 14(COMP METB)on 022 Albumin [Mass/Vol] 3.8 g/dL Normal 3.4-5.0 [facility] Comment on above: Performed By: #### C MP, LIPID #### [facility] [address] [place] [address] Dr. Jeremías Gaffney Albumin/Globulin [Mass ratio] 1.0 {ratio} Normal [facility] Comment on above: Performed By: #### C MP, LIPID #### [facility] [address] [place] [address] Dr. Jeremías Gaffney ALP [Catalytic activity/Vol] 70 U/L Normal 46-116 [facility] Comment on above: Performed By: #### C MP, LIPID #### [facility] [address] [address] [address] Jeremías Gaffney ALT [Catalytic activity/Vol] 40 U/L Normal 16-63 [facility] Comment on above: Performed By: #### C MP, LIPID #### [facility] [address] [place] [address] Dr. Jeremías Gaffney Anion gap [Moles/Vol] 11.9 mmol/L Normal [facility] Comment on above: Performed By: #### C MP, LIPID #### [facility] [address] [place] [address] Dr. Jeremías Gaffney AST [Catalytic activity/Vol] 18 U/L Normal 15-37 [facility] Comment on above: Performed By: #### C MP, LIPID #### [facility] [address] [place] [address] Dr. Jeremías Gaffney Bilirubin [Mass/Vol] 0.7 mg/dL Normal 0.2-1.0 [facility] Comment on above: Performed By: #### C MP, LIPID #### [facility] [address] [place] [address] Dr. Jeremías Gaffney Calcium [Mass/Vol] 9.0 mg/dL Normal 8.5-10.1 [facility] Comment on above: Performed By: #### C MP, LIPID #### [facility] [address] [place] [address] Dr. Jeremías Gaffney Chloride [Moles/Vol] 103 mmol/L Normal 98-107 [facility] Comment on above: Performed By: #### C MP, LIPID #### [facility] [address] [place] [address] Dr. Jeremías Gaffney CO2 [Moles/Vol] 28.4 mmol/L Normal 21.0-32.0 [facility] Comment on above: Performed By: #### C MP, LIPID #### [facility] [address] [place] [address] Dr. Jeremías Gaffney Creatinine [Mass/Vol] 0.72 mg/dL Normal 0.70-1.30 [facility] Comment on above: Performed By: #### C MP, LIPID #### [facility] [address] [address] [address] Jeremías Gaffney EGFR-AF [place]ER >60 Normal >=60 [facility] Comment on above: Performed By: #### C MP, LIPID #### [facility] [address] [place] [address] Dr. Jeremías Gaffney EGFR-NON AF [place] >60 Normal >=60 [facility] Comment on above: Performed By: #### C MP, LIPID #### [facility] [address] [place] [address] Dr. Jeremías Gaffney Globulin (S) [Mass/Vol] 3.8 g/dL Normal [facility] Comment on above: Performed By: #### C MP, LIPID #### [facility] [address] [place] [address] Dr. Jeremías Gaffney Glucose [Mass/Vol] 106 mg/dL Normal 74-106 [facility] Comment on above: Performed By: #### C MP, LIPID #### [facility] [address] [place] [address] Dr. Jeremías Gaffney Potassium [Moles/Vol] 4.3 mmol/L Normal 3.5-5.1 [facility] Comment on above: Performed By: #### C MP, LIPID #### [facility] [address] [place] [address] Dr. Jeremías Gaffney Protein [Mass/Vol] 7.6 g/dL Normal 6.4-8.2 [facility] Comment on above: Performed By: #### C MP, LIPID #### [facility] [address] [place] [address] Dr. Jeremías Gaffney Sodium [Moles/Vol] 139 mmol/L Normal 136-145 [facility] Comment on above: Performed By: #### C MP, LIPID #### [facility] [address] [address] [address] Jeremías Gaffney Urea nitrogen [Mass/Vol] 19.0 mg/dL Critically high 7.0-18.0 [facility] Comment on above: Performed By: #### C MP, LIPID #### [facility] [id number] Jeremías Gaffney Urea nitrogen/Creatinine [Mass ratio] 26.4 mg/mg Normal [facility] Comment on above: Performed By: #### C MP, LIPID #### [facility] [address] [place] [address] Dr. Jeremías Gaffney MRI Cardiac w/wo contrast fo r Morph/Funct and Valve Dzon 01-30-2022 MRI Cardiac w/wo contrast for Morph/Funct and Valve Dz Normal [facility] [address] DO Work Phone: [phone] MRI CARDIAC RESONANCE YARA GING FOR VELOCITY FLOW MAPPINGon 01-30-2022 MRI CARDIAC RESONANCE IMAGING FOR VELOCITY FLOW MAPPING [facility] CMR Report Name: GIAN SANDOVAL : 1960 Scan Date: 2022-01-30 11:10:00 Electronically signed by SHARAN THOMAS 10:03:32 GENERAL INFORMATION HEIGHT: 66.00 in (167.64 cm) WEIGHT: 187.00 lbs (84.82 kgs) BSA: 1.94 m^2 BP: 110 / 72 mmHg BASELINE HR: 73 BPM SCAN LOCATION: [facility] REFERRING PHYSICIAN: YOHAN SADLER ATTENDING PHYSICIAN: YOHAN SADLER TECHNOLOGIST: RAZA SORIA ACCESSION NUMBER: [id number] CPT CODES: 85992 ICD10 CODES: I42.9, [ , ]I25.10 SUMMARY [...] not included)... Normal [facility] MRI CARDIAC W/WO CONTRAST FOR MORPH/FUNCT AND VALVE [facility] 01-30-2022 MRI CARDIAC W/WO CONTRAST FOR MORPH/FUNCT AND VALVE [facility] CMR Report Name: GIAN SANDOVAL : 1960 Scan Date: 2022-01-30 11:10:00 Electronically signed by SHARAN THOMAS 10:03:32 GENERAL INFORMATION HEIGHT: 66.00 in (167.64 cm) WEIGHT: 187.00 lbs (84.82 kgs) BSA: 1.94 m^2 BP: 110 / 72 mmHg BASELINE HR: 73 BPM SCAN LOCATION: [facility] REFERRING PHYSICIAN: YOHAN SADLER ATTENDING PHYSICIAN: YOHAN SADLER TECHNOLOGIST: RAZA SORIA ACCESSION NUMBER: [id number] CPT CODES: 88538 ICD10 CODES: I42.9, [ , ]I25.10 SUMMARY [...] . Hyperenhancement (more content not included)... Normal [facility] No Panel Informationon 12-26 96\S\96 Normal [facility] [address] DO Work Phone: Comment on above: Random Glucose Refer ence Range is dependent on time and content of last meal. Glucose of more than 200 mg/dL in a nonstressed, ambulatory subject supports the diagnosis of Diabetes Mellitus.PERFORMED BY:[facility] [place], [place] [id number] MEDICAL DIRECTORSHILOH SPRINGER M.D. Activated partial thrombopla stin time (aPTT) in platelet poor plasma by coagulation aOrdered By: Yohan Sadler on 12-24-2021 aPTT Coag (PPP) [Time] 35.2 s 25.1-36.5 [facility] Basophils Auto (Bld) [#/Vol] Ordered By: Yohan Sadler on 12-24-2021 Basophils (Bld) [#/Vol] 0.0 10*3/uL 0.0-0.2 [facility] Basophils/100 WBC Auto (Bld) Ordered By: Yohan Sadler on 12-24-2021 Basophils/100 WBC (Bld) 0.3 % [facility] Blood hemoglobin measurement (mass/volume)Ordered By: Yohan Sadler on 12-24-2021 Hemoglobin (Bld) [Mass/Vol] 12.8 g/dL 13.0-17.0 [facility] Blood leukocytes automated c ount (number/volume)Ordered By: oYhan Sadler on 12-24-2021 WBC (Bld) [#/Vol] 12.6 10*3/uL 4.5-11.0 [facility] COVID-19 SOFIAOrdered By: Usman Sadler on 12-24-2021 SARS-CoV+SARS-CoV-2 (COVID-19) Ag IA.rapid Ql (Resp) Negative Negative [facility] Comment on above: This is a duplicate Diana SARS Antigen (THEODORE) result to be used for statistical tracking purpose only. Cholesterol [Mass/volume] in Serum or PlasmaOrdered By: Yohan Sadler on 12-24-2021 Cholesterol [Mass/Vol] 105 mg/dL 140-200 [facility] Comment on above: Chol less than 200 m g/dl low riskChol 201-239 mg/dl borderline riskChol 240 mg/dl and greater high risk Cholesterol in LDL Calc [Mas s/Vol]Ordered By: Yohan Sadler on 12-24-2021 Cholesterol in LDL [Mass/Vol] 39 mg/dL 0-100 [facility] Comment on above: LDL ATP III CLASSIFI CATIONLDL less than 100 mg/dL OptimalLDL 100-129 mg/dL Near or above optimalLDL 130-159 mg/dL Borderline highLDL 160-189 mg/dL HighLDL greater than 189 mg/dL Very high Cholesterol in VLDL Calc [Ma ss/Vol]Ordered By: Yohan Sadler on 12-24-2021 Cholesterol in VLDL [Mass/Vol] 25 mg/dL [facility] Creatinine and Glomerular fi ltration rate.predicted panel (S/P/Bld)Ordered By: Yohan Sadler on 12-24-2021 Creatinine [Mass/Vol] 0.88 mg/dL 0.64-1.27 [facility] Eosinophils Auto (Bld) [#/Vo l]Ordered By: Yohan Sadler on 12-24-2021 Eosinophils (Bld) [#/Vol] 0.2 10*3/uL 0.0-0.45 [facility] Eosinophils/100 WBC Auto (Bl d)Ordered By: Yohan Sadler on 12-24-2021 Eosinophils/100 WBC (Bld) 1.7 % [facility] Erythrocyte distribution wid th Auto (RBC) [Ratio]Ordered By: Yohan Sadler on 12-24-2021 Erythrocyte distribution width (RBC) [Ratio] 13.2 % 12.0-14.8 [facility] Estimated glomerular filtrat ion rate (GFR) non- AmericanOrdered By: Yohan Sadler on 12-24-2021 GFR/1.73 sq M.predicted among non-blacks MDRD (S/P/Bld) [Vol rate/Area] > 60 mL/Min [facility] Hematocrit Auto (Bld) [Volum e fraction]Ordered By: Yohan Sadler on 12-24-2021 Hematocrit (Bld) [Volume fraction] 37.6 % 38.8-50.0 [facility] Laboratory - Chemistry and C hemistry - challengeon 12-24-2021 Cholesterol [Mass/Vol] 105\S\105 below low threshold 140-200 [facility] [address] DO Work Phone: Comment on above: Chol less than 200 m g/dl low risk Chol 201-239 mg/dl borderline risk Chol 240 mg/dl and greater high risk Cholesterol in LDL [Mass/Vol] 39\S\39 Normal 0-100 [facility] [place] [address] DO Work Phone: Comment on above: LDL ATP III CLASSIFI CATION LDL less than 100 mg/dL Optimal LDL 100-129 mg/dL Near or above optimal LDL 130-159 mg/dL Borderline high LDL 160-189 mg/dL High LDL greater than 189 mg/dL Very high Laboratory - CoagulationOrde red By: Yohan Sadler on 12-24-2021 PT Coag (PPP) [Time] 13.2 s 9.0-12.9 [facility] Laboratory - Hematology and Cell countsOrdered By: Yohan Sadler on 12-24-2021 Nucleated RBC/100 WBC (Bld) [Ratio] 0.0 % 0-0.5 [facility] - Microbiology an d Antimicrobial susceptibilityon 12-24-2021 SARS-CoV-2 (COVID-19) RNA JOSE+probe Ql (Unsp spec) [facility] [place] [address] DO Work Phone: Lymphocytes Auto (Bld) [#/Vo l]Ordered By: Yohan Sadler on 12-24-2021 Lymphocytes (Bld) [#/Vol] 1.7 10*3/uL 1.00-4.8 [facility] Lymphocytes/100 WBC Auto (Bl d)Ordered By: Yohan Sadler on 12-24-2021 Lymphocytes/100 WBC (Bld) 13.6 % [facility] MCH Auto (RBC) [Entitic mass ]Ordered By: Yohan Sadler on 12-24-2021 MCH (RBC) [Entitic mass] 28.5 pg 27.5-35.2 [facility] MCHC Auto (RBC) [Mass/Vol]Or dered By: Yohan Sadler on 12-24-2021 MCHC (RBC) [Mass/Vol] 33.9 g/dL 32.5-35.6 [facility] MCV Auto (RBC) [Entitic vol] Ordered By: Yohan Sadler on 12-24-2021 MCV (RBC) [Entitic vol] 84.1 fL 83.5-101 [facility] Monocytes Auto (Bld) [#/Vol] Ordered By: Yohan Sadler on 12-24-2021 Monocytes (Bld) [#/Vol] 0.8 10*3/uL 0.0-0.8 [facility] Monocytes/100 WBC Auto (Bld) Ordered By: Yohan Sadler on 12-24-2021 Monocytes/100 WBC (Bld) 6.7 % [facility] Neutrophils Auto (Bld) [#/Vo l]Ordered By: Yohan Sadler on 12-24-2021 Neutrophils (Bld) [#/Vol] 9.8 10*3/uL 1.8-7.7 [facility] Neutrophils/100 WBC Auto (Bl d)Ordered By: Yohan Sadler on 12-24-2021 Neutrophils/100 WBC (Bld) 77.7 % [facility] No Panel InformationOrdered By: Yohan Sadler on 12-24-2021 Estimated GFR () > 60 mL/Min [facility] Comment on above: GFR estimated refere nce range: According to KDOQI guidelines, <60 ml/min/1.73m2 is sufficient to diagnose a patient with chronic kidney disease. Pharmacy Creatinine Clearance (Chem N/A [facility] SARS Antigen (LFIA) [facility] No Panel Informationon 12-24 35.2\S\35.2 Normal 25.1-36.5 [facility] [place] [address] [place] [address] DO Work Phone: Comment on above: PERFORMED BY:[facility] [place], [place] [id number] MEDICAL DIRECTORSHILOH SPRINGER M.D. 1.2\S\1.2 [facility] Work Phone: Comment on [...] valves: 3 - 4.5 13.2\S\13.2 Normal 12.0-14.8 [facility] [address] DO Work Phone: Negative Normal Negative [facility] [address] DO Work Phone: Comment on above: This is a duplicate Diana SARS Antigen (THEODORE) result to be used for statistical tracking purpose only.PERFORMED BY:[facility] [place], [place] [id number] MEDICAL DIRECTORSHILOH SPRINGER M.D. 77.7\S\77.7 Normal . -[facility] [address] DO Work Phone: 10.4\S\10.4 above high threshold 6.6-10.1 -[facility] [address] DO Work Phone: 133\S\133 below low threshold 150-450 [facility] 250 DO Work Phone: 33.9\S\33.9 Normal 32.5-35.6 -[facility] [address] DO Work Phone: 28.5\S\28.5 Normal 27.5-35.2 -[facility] 250 DO Work Phone: 9.8\S\9.8 above high threshold 1.8-7.7 [facility] 250 DO Work Phone: 0.0\S\0.0 Normal 0.0-0.2 -[facility] 250 DO Work Phone: Comment on above: PERFORMED BY:[facility] [place] [id number] MEDICAL DIRECTORSHILOH SPRINGER M.D. 0.3\S\0.3 Normal . -[facility] 250 DO Work Phone: 1.7\S\1.7 Normal 1.00-4.8 [facility] 250 DO Work Phone: 6.7\S\6.7 Normal . [facility] 250 DO Work Phone: 13.6\S\13.6 Normal . [facility] 250 DO Work Phone: 0.2\S\0.2 Normal 0.0-0.45 [facility] 250 DO Work Phone: 0.8\S\0.8 Normal 0.0-0.8 [facility] 250 DO Work Phone: 84.1\S\84.1 Normal 83.5-101 [facility] 250 DO Work Phone: 37.6\S\37.6 below low threshold 38.8-50.0 [facility] 250 DO Work Phone: 12.8\S\12.8 below low threshold 13.0-17.0 [facility] 250 DO Work Phone: 4.48\S\4.48 Normal 3.90-5.60 [facility] 250 DO Work Phone: 12.6\S\12.6 above high threshold 4.1-10.5 [facility] 250 DO Work Phone: 25.9\S\25.9 Normal 22.0-30.0 [facility] 250 DO Work Phone: 101\S\101 Normal 95-114 [facility] 250 DO Work Phone: 4.3\S\4.3 Normal 3.5-5.1 [facility] 250 DO Work Phone: 137\S\137 Normal 136-146 [facility] [place] 250 DO Work Phone: 21\S\21 Normal 9-23 [facility] [place] 250 DO Work Phone: > 60 Normal [facility] [place] 250 DO Work Phone: [phone] Comment on above: GFR estimated refere nce range: According to KDOQI guidelines, <60 ml/min/1.73m2 is sufficient to diagnose a patient with chronic kidney disease. 0.88\S\0.88 Normal 0.64-1.27 [facility] [place] 250 DO Work Phone: [phone] 2.6\S\2.6 Normal <5.0 [facility] Jeffry w[place] 250 DO Work Phone: Comment on above: PERFORMED BY:[place] [address] [place], [place] [id number] MEDICAL DIRECTORSHILOH SPRINGER M.D. 25\S\25 Normal [facility] Jeffry [address] 250 DO Work Phone: [phone] 125\S\125 Normal 35-149 [facility] Jeffry [address] 250 DO Work Phone: [phone] Comment on above: TRIG ATP III CLASSIF ICATION TRIG less than 150 mg/dL Normal TRIG 150-199 mg/dL Borderline high TRIG 200-500 mg/dL High TRIG greater than 500 mg/dL Very high Standard traceable to the Center for Disease Conrtrol and Prevention (CDC) test method. 41\S\41 Normal 29-71 [facility] Jeffry wright 250 DO Work Phone: Comment on above: HDL CHOL ATP-III CLA SSIFICATION Cardiovascular Risk HDL > or equal to 60 mg/dL LOW HDL < 40 mg/dL HIGH Platelet mean volume Auto (B ld) [Entitic vol]Ordered By: Yohan Sadler on 12-24-2021 Platelet mean volume (Bld) [Entitic vol] 10.4 fL 6.6-10.1 [facility] Platelet poor plasma interna tional normalized ratio (INR) by coagulation assay (relatOrdered By: Yohan Sadler on 12-24-2021 INR Coag (PPP) [Relative time] 1.2 {INR} [facility] Comment on above: INR Therapeutic Rang [...] 12-24-2021 Platelets (Bld) [#/Vol] 133 10*3/uL 150-450 [facility] RBC Auto (Bld) [#/Vol]Ordere d By: Yohan Sadler on 12-24-2021 RBC (Bld) [#/Vol] 4.48 10*6/uL 3.90-5.60 [facility] Serum or plasma chloride rin surement (moles/volume)Ordered By: Yohan Sadler on 12-24-2021 Chloride [Moles/Vol] 101 mmol/L 95-114 [facility] Serum or plasma high density lipoprotein (HDL) cholesterol measurementOrdered By: Yohan Sadler on 12-24-2021 Cholesterol in HDL [Mass/Vol] 41 mg/dL 29-71 [facility] Comment on above: HDL CHOL ATP-III CLA SSIFICATION Cardiovascular RiskHDL > or equal to 60 mg/dL LOWHDL < 40 mg/dL HIGH Serum or plasma potassium me asurement (moles/volume)Ordered By: Yohan Sadler on 12-24-2021 Potassium [Moles/Vol] 4.3 mmol/L 3.5-5.1 [facility] Serum or plasma sodium measu rement (moles/volume)Ordered By: Yohan Sadler on 12-24-2021 Sodium [Moles/Vol] 137 mmol/L 136-146 [facility] Serum or plasma total carbon dioxide measurement (moles/volume)Ordered By: Yohan Sadler on 12-24-2021 CO2 [Moles/Vol] 25.9 mmol/L 22.0-30.[address] [facility] Serum or plasma total choles terol/high density lipoprotein (HDL) cholesterol mass ratOrdered By: Yohan Sadler on 12-24-2021 Cholesterol.total/Ch olesterol in HDL [Mass ratio] 2.6 {ratio} [facility] Serum or plasma urea nitroge n measurement (mass/volume)Ordered By: Yohan Sadler on 12-24-2021 Urea nitrogen [Mass/Vol] 21 mg/dL 9-23 [facility] Triglyceride [Mass/volume] i n Serum or PlasmaOrdered By: Yohan Sadler on 12-24-2021 Triglyceride [Mass/Vol] 125 mg/dL 35-149 [facility] Comment on above: TRIG ATP III [...] IO EKG Electrocardiogram- 12 Lead; Status:Complete; Done: [id number] Class 1 obesity with body mass index (BMI) of 30.0 to 30.9 in adult Healthy Weight Tips; Status:Complete - Retrospective Authorization; Done: [id number] SocHx: Former smoker Tobacco Use Screening; Status:Complete; Done: [id number] Patient Instructions By signing my name below, I, Kamille Rizo LPN, Scribe, attest that this documentation has been prepared under the direction and in the presence of Dr. Yohan Sadler MD. All medical record entries made by the Ed were at my direction and personally dictated [...] visit. Follow-up after testing completed Chief Complaint IGAN SANDOVAL is being seen for a consultation [...] motion abnormalities. 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 Called [facility] pharmacy in [place] to get medications Allergies Medication No Known [...] no seiz (more content not included)... Normal [facility] Screening.on 022 Adult depression screening assessment No [facility] [address] DO Work Phone: Tobacco use status [facility] b) No [facility] [address] DO Work Phone: Vital Signs Date Time Vital Sign Value Performing Clinician Facility 04-10-2025 13:52-0400 Body height 160 cm Yohan Sadler MD Work Phone: [facility] 04-10-2025 13:52-0400 Body mass index (BMI) [Ratio] 36.49 kg/m2 Yohan Sadler MD Work Phone: [facility] 04-10-2025 13:52-0400 Body weight 93.44 kg Yohan Sadler MD Work Phone: [facility] 04-10-2025 13:52-0400 Diastolic blood pressure 76 mm[Hg] Yohan Sadler MD Work Phone: [facility] 04-10-2025 13:52-0400 Heart rate 80 /min Yohan Sadler MD Work Phone: [facility] 04-10-2025 13:52-0400 Systolic blood pressure 136 mm[Hg] Yohan Sadler MD Work Phone: [facility] 02-22-2025 17:50-0400 Body mass index (BMI) [Ratio] 35.09 kg/m2 Franciscanoam Quintana ACID RECOVERY OPERATOR Work Phone: [facility] 02-22-2025 17:50-0400 Body temperature 97.81 [degF] Francisca Lilian ACID RECOVERY OPERATOR Work Phone: [facility] 02-22-2025 17:50-0400 Body weight 92.72 kg Francisca Judsonz ACID RECOVERY OPERATOR Work Phone: [facility] 02-22-2025 17:50-0400 Diastolic blood pressure 74 mm[Hg] Francisca Marihmacyz ACID RECOVERY OPERATOR Work Phone: [facility] 02-22-2025 17:50-0400 Heart rate 86 /min Francisca Judsonz ACID RECOVERY OPERATOR Work Phone: [facility] 02-22-2025 17:50-0400 Respiratory rate 20 /min Francisca Judsonz ACID RECOVERY OPERATOR Work Phone: [facility] 02-22-2025 17:50-0400 SaO2% (BldA) [Mass fraction] 97 % Francisca Judsonz ACID RECOVERY OPERATOR Work Phone: [facility] 02-22-2025 17:50-0400 Systolic blood pressure 104 mm[Hg] Francisca Judsonz ACID RECOVERY OPERATOR Work Phone: [facility] 10-20-2024 15:37-0500 Body height 162.6 cm Enrique Arias ACID RECOVERY OPERATOR Work Phone: [facility] 10-20-2024 15:37-0500 Body mass index (BMI) [Ratio] 35.29 kg/m2 Enrique Arias ACID RECOVERY OPERATOR Work Phone: [facility] 10-20-2024 15:37-0500 Body temperature 98.2 [degF] Enrique Arias ACID RECOVERY OPERATOR Work Phone: [facility] 10-20-2024 15:37-0500 Body weight 93.26 kg Enrique Arias ACID RECOVERY OPERATOR Work Phone: [facility] 10-20-2024 15:37-0500 Diastolic blood pressure 68 mm[Hg] Enrique Arias ACID RECOVERY OPERATOR Work Phone: [facility] 10-20-2024 15:37-0500 Heart rate 78 /min Enrique Arias ACID RECOVERY OPERATOR Work Phone: [facility] 10-20-2024 15:37-0500 Respiratory rate 16 /min Enrique Arias ACID RECOVERY OPERATOR Work Phone: [facility] 10-20-2024 15:37-0500 SaO2% (BldA) [Mass fraction] 98 % Enrique Arias ACID RECOVERY OPERATOR Work Phone: [facility] 10-20-2024 15:37-0500 Systolic blood pressure 130 mm[Hg] Enrique Arias ACID RECOVERY OPERATOR Work Phone: [facility] 08-19-2024 13:25-0500 Body height 162.6 cm Yohan Sadler MD Work Phone: [facility] 08-19-2024 13:25-0500 Body mass index (BMI) [Ratio] 35.02 kg/m2 Yohan Sadler MD Work Phone: [facility] 08-19-2024 13:25-0500 Body weight 92.53 kg Yohan Sadler MD Work Phone: [facility] 08-19-2024 13:25-0500 Diastolic blood pressure 70 mm[Hg] Yohan Sadler MD Work Phone: [facility] 08-19-2024 13:25-0500 Heart rate 72 /min Yohan Sadler MD Work Phone: [facility] 08-19-2024 13:25-0500 Systolic blood pressure 130 mm[Hg] Yohan Sadler MD Work Phone: [facility] 07-13-2024 15:53-0500 Body height 162.6 cm Enrique Arias ACID RECOVERY OPERATOR Work Phone: [facility] 07-13-2024 15:53-0500 Body mass index (BMI) [Ratio] 35.36 kg/m2 Enrique Arias ACID RECOVERY OPERATOR Work Phone: [facility] 07-13-2024 15:53-0500 Body temperature 96.01 [degF] Enrique Arias ACID RECOVERY OPERATOR Work Phone: [facility] 07-13-2024 15:53-0500 Body weight 93.44 kg Enrique Arias ACID RECOVERY OPERATOR Work Phone: [facility] 07-13-2024 15:53-0500 Diastolic blood pressure 72 mm[Hg] Enrique Arias ACID RECOVERY OPERATOR Work Phone: [facility] 07-13-2024 15:53-0500 Heart rate 70 /min Enrique Arias ACID RECOVERY OPERATOR Work Phone: [facility] 07-13-2024 15:53-0500 Respiratory rate 16 /min Enrique Arias ACID RECOVERY OPERATOR Work Phone: [facility] 07-13-2024 15:53-0500 SaO2% (BldA) [Mass fraction] 99 % Enrique Arias ACID RECOVERY OPERATOR Work Phone: [facility] 07-13-2024 15:53-0500 Systolic blood pressure 130 mm[Hg] Enrique Arias ACID RECOVERY OPERATOR Work Phone: [facility] 10-01-2023 10:14-0500 Body height 160 cm Yohan Sadler MD Work Phone: [facility] 10-01-2023 10:14-0500 Body mass index (BMI) [Ratio] 34.37 kg/m2 Yohan Sadler MD Work Phone: [facility] 10-01-2023 10:14-0500 Body weight 88 kg Yohan Sadler MD Work Phone: [facility] 10-01-2023 10:14-0500 Diastolic blood pressure 82 mm[Hg] Yohan Sadler MD Work Phone: [facility] 10-01-2023 10:14-0500 Heart rate 72 /min Yohan Sadler MD Work Phone: [facility] 10-01-2023 10:14-0500 Systolic blood pressure 138 mm[Hg] Yohan Sadler MD Work Phone: [facility] 11-19-2022 00:00-0400 60 1 Shaikh Ramses Work Phone: [facility] 600 DO Work Phone: Comment on above: [facility] 11-05-2022 10:44-0500 Body height 165.1 cm Shaikh Ramses Work Phone: [facility]-[place] 250 DO Work Phone: 11-05-2022 10:44-0500 Body mass index (BMI) [Ratio] 31.95 kg/m2 Shaikh Ramses Work Phone: [facility]-[place] 250 DO Work Phone: 11-05-2022 10:44-0500 Body surface area Derived from formula 1.94 m2 Shaikh Ramses Work Phone: [facility] 250 DO Work Phone: 11-05-2022 10:44-0500 Body weight 87.09 kg Shaikh Fredrickd Work Phone: [facility] 250 DO Work Phone: 11-05-2022 10:44-0500 Diastolic blood pressure 62 mm[Hg] Shaikh Fredrickd Work Phone: [facility] 250 DO Work Phone: 11-05-2022 10:44-0500 Heart rate 76 /min Shaikh Fredrickd Work Phone: [facility] 250 DO Work Phone: 11-05-2022 10:44-0500 Systolic blood pressure 124 mm[Hg] Shaikh Fredrickd Work Phone: [facility] 250 DO Work Phone: 12-13-2021 12:53-0400 Body height 167.64 cm Shaikh Fredrickd Work Phone: [facility] 250 DO Work Phone: 12-13-2021 12:53-0400 Body mass index (BMI) [Ratio] 30.18 kg/m2 Shaikh Fredrickd Work Phone: [facility] 250 DO Work Phone: 12-13-2021 12:53-0400 Body surface area Derived from formula 1.94 m2 Shaikh Ectorwad Work Phone: [facility] 250 DO Work Phone: 12-13-2021 12:53-0400 Body weight 84.82 kg Shaikh Ectorwad Work Phone: [facility] 250 DO Work Phone: 12-13-2021 12:53-0400 Diastolic blood pressure 72 mm[Hg] Shaikh Ramses Work Phone: [facility] 250 DO Work Phone: 12-13-2021 12:53-0400 Heart rate 70 /min Shaikh Ramses Work Phone: [facility] 250 DO Work Phone: 12-13-2021 12:53-0400 Systolic blood pressure 110 mm[Hg] Shaikh Ramses Work Phone: [facility] 250 DO Work Phone: Encounters Encounter Date Encounter Type Care Provider Facility Start: 04-21-2025 End: 04-21-2025 Clinisync Result Encounter Generic External Data Provider [facility] External Department Unsolicited Start: 04-21-2025 End: 04-21-2025 Clinisync Result Encounter Generic External Data Provider [facility] External Department Unsolicited Start: 04-14-2025 End: 04-15-2025 Clinical Support Gregory Solis DO Work Phone: [facility] Comment on above: Retinal Injection; D iabetic Retinopathy Hyperlipidemia, unsp ecified hyperlipidemia type Start: 04-10-2025 End: 04-10-2025 Office outpatient visit 25 minutes Yohan Sadler MD Work Phone: [facility] Comment on above: 3-vessel coronary ar ben disease; Cardiomyopathy, unspecified type (Multi); Hyperlipidemia, unspecified hyperlipidemia type; Diabetes mellitus of other type without complication, 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; Never smoked any substance; BMI 36.0-36.9,adult Start: 04-10-2025 End: 04-10-2025 ambulatory YOHAN [facility] Amb[facility] Start: 04-07-2025 End: 04-07-2025 Bamboo flowsheet Gregory Solis DO Work Phone: [facility] Start: 04-07-2025 End: 04-07-2025 Bamboo flowsheet Gregory Solis DO Work Phone: [facility] Start: 04-07-2025 End: 04-07-2025 Clinical Support Gregory Solis DO Work Phone: [facility] Comment on above: Retinal Injection; D iabetic Retinopathy Start: 03-17-2025 End: 03-19-2025 Refill Fuentes Wilson MD Work Phone: [facility] Comment on above: Coronary artery dise ase involving [place] coronary artery of [place] heart without angina pectoris Start: 03-16-2025 End: 03-16-2025 Clinisync Result Encounter Francisca Quintana NP Work Phone: [facility] External Department Unsolicited Start: 03-16-2025 End: 03-16-2025 Clinisync Result Encounter Francisca Quintana ACID RECOVERY OPERATOR Work Phone: [facility] External Department Unsolicited Start: [...] 02-22-2025 Office outpatient visit 25 minutes Francisca Quintana NP Work Phone: [facility] Comment on above: CKD stage 3b, GFR 30 -44 ml/min ([facility]) (Primary Dx); Moderate nonproliferative diabetic retinopathy of both eyes with macular edema associated with type 2 diabetes mellitus ([facility]); Type 2 diabetes mellitus without complication, without long-term current use of insulin ([facility]); Hyperlipidemia, unspecified hyperlipidemia type ; Primary hypertension ; Coronary artery disease involving [place] coronary artery of [place] heart without angina pectoris ; Diabetes mellitus type 2 with complications ([facility]) Start: 02-22-2025 End: 02-22-2025 ambulatory FRANCISCA QUINTANA Not Available Start: 02-22-2025 End: 02-22-2025 Bamboo flowsheet Francisca Quintana ACID RECOVERY OPERATOR Work Phone: [facility] Start: 02-22-2025 End: 02-22-2025 Bamboo flowsheet Francisca Quintana ACID RECOVERY OPERATOR Work Phone: [facility] Start: 02-21-2025 End: 02-21-2025 Bamboo flowsheet Gregory Solis DO Work Phone: [facility] Start: 02-21-2025 End: 02-21-2025 Bamboo flowsheet Gregory Solis DO Work Phone: [facility] Start: 02-21-2025 End: 02-21-2025 Follow-up encounter Gregory Solis DO Work Phone: [facility] Comment on above: Retinal Injection; R etinopathy; Follow-up Start: 02-21-2025 End: 02-21-2025 ambulatory GREGORY SOLIS Not Available Start: 02-20-2025 End: 02-20-2025 Clinisync Result Encounter Francisca Quintana ACID RECOVERY OPERATOR Work Phone: [facility] External Department Unsolicited Start: 02-20-2025 End: 02-20-2025 Clinisync Result Encounter Francisca Quintana ACID RECOVERY OPERATOR Work Phone: [facility] External Department Unsolicited Start: 01-30-2025 End: 01-30-2025 Refill Fuentes Wilson MD Work Phone: [facility] Comment on above: Type 2 diabetes yvonne [...] Available Start: 12-06-2024 End: 12-06-2024 Bamboo flowsheet Gregoyr Dee Garciaromy DO Work Phone: [facility] Start: [...] Start: 11-02-2024 End: 11-02-2024 Bamboo flowsheet Gregory Dee Irma DO Work Phone: [facility] Start: 11-02-2024 End: 11-02-2024 Bamboo flowsheet Gregory Solis DO Work Phone: [facility] Start: 11-02-2024 End: 11-02-2024 Clinical Support Gregory Solis DO Work Phone: [facility] Comment on above: Retinal Injection Start: 10-20-2024 End: 10-20-2024 Office outpatient visit 15 minutes Enrique Arias ACID RECOVERY OPERATOR Work Phone: [facility] Comment on above: Primary hypertension (CMS/HCC) (Primary Dx); Type 2 diabetes mellitus without complication, without long-term current use of insulin (CMS/HCC); Type 2 diabetes mellitus with hyperglycemia (CMS/HCC); Irregular heart rate; Hyperlipidemia, unspecified hyperlipidemia type (CMS/HCC); Coronary artery disease involving [place] coronary artery of [place] heart without angina pectoris ([facility]); Chronic kidney disease (CKD) stage G3a/A1, moderately decreased glomerular filtration rate (GFR) between 45-59 mL/min/1.73 square meter and albuminuria creatinine ratio less than 30 mg/g (H* (CMS/HCC) Start: 10-20-2024 End: 10-20-2024 ambulatory ENRIQUE ARIAS Not Available Start: 10-20-2024 End: 10-20-2024 Bamboo flowsheet Enrique Arias ACID RECOVERY OPERATOR Work Phone: [facility] Start: 10-20-2024 End: 10-20-2024 Bamboo flowsheet Enrique Arias ACID RECOVERY OPERATOR Work Phone: [facility] Start: 10-11-2024 [...] 10-07-2024 End: 10-07-2024 Clinisync Result Encounter Enrique Gomeztrick ACID RECOVERY OPERATOR Work Phone: [facility] External Department Unsolicited Start: 10-07-2024 End: 10-07-2024 Clinisync Result Encounter Enrique Arias ACID RECOVERY OPERATOR Work Phone: [facility] External Department Unsolicited Start: 09-27-2024 End: 09-27-2024 Bamboo flowsheet Gregory Solis DO Work Phone: [facility] Start: 09-27-2024 End: 09-27-2024 Bamboo flowssaul Solis DO Work Phone: [facility] Start: 09-27-2024 End: 09-27-2024 Clinical Support Gregory Solis DO Work Phone: [facility] Comment on above: Retinal Injection Start: 09-21-2024 End: 09-21-2024 ambulatory GREGORY SOLIS Not Available Start: 09-21-2024 End: 09-21-2024 Patient encounter procedure Rupert Mcdonald DO Work Phone: [facility] Comment on above: Encounter for drug s creening Start: 09-20-2024 End: 09-20-2024 Office outpatient visit 25 minutes Gregory Solis DO Work Phone: [facility] Comment on above: Cystoid macular raman a of both eyes (Primary Dx); 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 ([facility]) Start: 09-20-2024 End: 09-20-2024 ambulatory GREGORY SOLIS Not Available Start: 09-20-2024 End: 09-20-2024 Bamboo flowssaul Solis DO Work Phone: [facility] Start: 09-20-2024 End: 09-20-2024 Bamboo flowsheet Gregory Solis DO Work Phone: [facility] Start: 08-19-2024 End: 08-19-2024 Office outpatient visit 25 minutes Yohan Sadler MD Work Phone: [facility] Comment on above: Diabetes mellitus ty pe II, non insulin dependent (Multi) (Primary Dx); 3-vessel coronary artery disease; Cardiomyopathy, unspecified type (Multi); Snoring; Hyperlipidemia, unspecified hyperlipidemia type; Never smoked any substance; BMI 35.0-35.9,adult; Atherosclerotic heart disease of [place] coronary artery without angina pectoris Start: 08-19-2024 End: 08-19-2024 ambulatory [facility] Ambulatory Start: 08-15-2024 End: 08-15-2024 Refill Gregory Solis DO Work Phone: [facility] Comment on above: Cystoid macular raman a of both eyes; Moderate nonproliferative diabetic retinopathy of both eyes with macular edema associated with type 2 diabetes mellitus (CMS/HCC) Start: 08-08-2024 End: 08-08-2024 Refill Enrique Arias ACID RECOVERY OPERATOR Work Phone: [facility] Comment on above: Coronary artery dise ase involving [place] coronary artery of [place] heart without angina pectoris ([facility]/HCC) (Primary Dx); Type 2 diabetes mellitus without complication, without long-term current use of insulin ([facility]); Type 2 diabetes mellitus with hyperglycemia ([facility]); Hyperlipidemia, unspecified hyperlipidemia type ([facility]); Irregular heart rate Start: 08-05-2024 End: 08-05-2024 Bamboo flowsheet Gregory Solis DO Work Phone: [facility] Start: 08-05-2024 End: 08-05-2024 Bamboo flowsheet Gregory Solis DO Work Phone: [facility] Start: 08-05-2024 End: 08-05-2024 Office outpatient visit 25 minutes Gregory Solis DO Work Phone: [facility] Comment on above: Cystoid macular raman a of both eyes (Primary Dx); Moderate nonproliferative diabetic retinopathy of both eyes with macular edema associated with type 2 diabetes mellitus ([facility]/HCC) Start: 08-05-2024 End: 08-05-2024 ambulatory GREGORY SOLIS Not Available Start: 08-02-2024 End: 08-02-2024 Refill Enrique Arias ACID RECOVERY OPERATOR Work Phone: [facility] Comment on above: Type 2 diabetes yvonne itus with hyperglycemia ([facility]/HCC) Start: 07-13-2024 End: 07-13-2024 Office outpatient visit 15 minutes Enrique Arias ACID RECOVERY OPERATOR Work Phone: [facility] Comment on above: Primary hypertension (CMS/HCC) (Primary Dx); 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 edema, without long-term current use of insulin (CMS/HCC); Hyperlipidemia, unspecified hyperlipidemia type (CMS/HCC) Start: 07-13-2024 End: 07-13-2024 ambulatory ENRIQUE GOMEZTRICK Not Available Start: 07-13-2024 End: 07-13-2024 Bamboo flowsheet Enrique Arias ACID RECOVERY OPERATOR Work Phone: [facility] Start: 07-13-2024 End: 07-13-2024 Bamboo flowsheet Enrique Arias ACID RECOVERY OPERATOR Work Phone: [facility] Start: 06-23-2024 End: 06-23-2024 Refill Paulette Webb COT Work Phone: [facility] Comment on above: Age-related nuclear cataract of both eyes (Primary Dx) Start: 06-06-2024 End: 06-06-2024 Refill Enrique Arias ACID RECOVERY OPERATOR Work Phone: [facility] Comment on above: Hyperlipidemia, unsp ecified hyperlipidemia type (CMS/HCC) Start: 05-24-2024 End: 05-24-2024 Bamboo flowsheet Gregory [...] with type 2 diabetes mellitus (CMS/HCC) Start: 10-07-2023 Orders Only Shaikh Ramses HARP Work Phone: [facility] Comment on above: Type 2 diabetes yvonne itus without complication, without long- term current use of insulin (CMS/HCC) (Primary Dx) Start: 10-06-2023 Clinisync Result Encounter Alonzo Pearce MD Work Phone: [facility] External Department Unsolicited Start: 10-06-2023 Clinisync Result Encounter Alonzo Pearce MD Work Phone: [facility] External Department Unsolicited Start: 10-01-2023 End: 10-01-2023 Office outpatient visit 25 minutes Yohan Sadler MD Work Phone: [facility] Comment on above: 3-vessel coronary ar ben disease; Cardiomyopathy, unspecified type (CMS/HCC); Hyperlipidemia, unspecified hyperlipidemia type; Diabetes mellitus of other type without complication, unspecified whether jail insulin use ([facility]); Never smoked any substance Start: 01-01-2023 End: 01-02-[address] YOHAN SADLER Facility:H1 Start: 11-21-2022 Patient encounter procedure Shaikh Ramses Work Phone: [facility] 600 DO Work Phone: Start: 11-19-2022 End: 11-20-2022 ambulatory SHAIKH Ruth PEARCE Facility:H1 Start: 11-05-2022 Office outpatient vi sit 25 minutes Shaikh Ramses Work Phone: [facility] 250 DO Work Phone: Start: 11-05-2022 ambulatory Yohan Sadler Facility :[id number] Start: 06-23-2022 End: 06-24-2022 ambulatory SHAIKH Ruth PEARCE Facility:H1 Start: 06-18-2022 End: 06-19-2022 ambulatory SHAIKH Ruth PEARCE Facility:H1 Start: 02-04-2022 Chart Update Shaikh Ramses Work Phone: [facility] 250 DO Work Phone: Start: 12-30-2021 Patient encounter procedure Shaikh Ramses Work Phone: [facility] 250 DO Work Phone: Start: 12-27-2021 Chart Update Shaikh Ramses Work Phone: [facility] 250 DO Work Phone: Start: 12-26-2021 ambulatory Yohan Sadler Facility :[id number] Start: 12-26-2021 SURGNON, Provider: Yohan Sadler, Status: Pen, Time: 2:00 PM Shaikh Ramses Work Phone: [facility] 250 DO Work Phone: Start: 12-26-2021 End: 12-26-2021 ambulatory Shaikh Ramses Facility:[facility] Start: 12-26-2021 Chart Update Shaikh Ramses Work Phone: [facility] 250 DO Work Phone: Start: 12-24-2021 End: 12-24-2021 Patient encounter procedure MD Yohan Sadler Work Phone: [id number] Start: 12-13-2021 ambulatory Yohan Sadler Facility :[id number] Start: 11-20-2021 ambulatory Yohan Sadler Facility :[facility] Procedures Date Procedure Procedure Detail Performing Clinician Start: 04-21-2025 ALL CBC WITH AUTO DIFF Generic External Data Provider Start: 04-14-2025 Intravitreal njx pharmacologic agt spx Gregory Solis DO Work Phone: Start: 04-07-2025 Intravitreal njx pharmacologic agt spx Gregory Solis DO Work Phone: Start: 04-07-2025 Computerized ophthal debi imaging retina Gregory Solis DO Work Phone: Start: 03-16-2025 US RENAL BI Francisca titus ACID RECOVERY OPERATOR Work Phone: Start: 03-07-2025 Intravitreal njx pharmacologic agt spx Gregory Solis DO Work Phone: Start: 02-22-2025 Hemoglobin glycosyla mahesh a1c Francisca Quintana ACID RECOVERY OPERATOR Work Phone: Start: 02-21-2025 Intravitreal njx pharmacologic agt spx Gregory Solis DO Work Phone: Start: 02-21-2025 Computerized ophthal debi imaging retina Gregory Solis DO Work Phone: Start: 02-20-2025 ALL BASIC METABOLIC PANEL Francisca Lilian ACID RECOVERY OPERATOR Work Phone: Start: 01-17-2025 Intravitreal njx pharmacologic [...] 10-07-2024 ALL CBC WITH AUTO DIFF Enrique Arias ACID RECOVERY OPERATOR Work Phone: Start: 09-27-2024 Intravitreal njx pharmacologic agt spx Gregory Solis DO Work Phone: Start: 09-20-2024 Computerized ophthal debi imaging retina Gregory Solis DO Work Phone: Start: 08-05-2024 Computerized ophthal debi imaging retina Gregory Solis DO Work Phone: Start: 05-24-2024 Oph bmtry prtl coher intrfrmtry io lens pwr chiara Gregory Solis DO Work Phone: Start: 05-24-2024 Computerized ophthal debi imaging retina Gregoyr Solis DO Work Phone: Start: 10-06-2023 [facility] MICROALB CREAT R SON RANDOM Shaikh Ramses HARP Work Phone: Start: 12-24-2021 SARS Antigen (LFIA) MD Yohan Sadler Work Phone: Plan of Treatment Date Care Activity Detail Author Start: 04-07-2026 Glaucoma screening Diabetes: Retinopathy Screening [facility] Start: 02-21-2026 Glaucoma screening Diabetes: Retinopathy Screening [facility] Start: 01-10-2026 Glaucoma screening Diabetes: Retinopathy Screening [facility] Start: 12-06-2025 Glaucoma screening Diabetes: Retinopathy Screening [facility] Start: 11-03-2025 End: 11-03-2025 Patient encounter procedure 11/03/2025 2:50 PM EST Office Visit [address] [address] Yohan Sadler MD [address] [facility] [address] [place] [address] [facility] Start: 11-02-2025 Glaucoma screening Diabetes: Retinopathy Screening [facility] Start: 10-20-2025 Pneumococcal Vaccine: 65+ Years (1 of 2 - PCV) Pneumococcal Vaccine: 65+ Years (1 of 2 - PCV) [facility] Comment on above: Postponed from 1964 (Patient Refus ed) Postponed from 12/19 (Patient Refused) Start: 09-20-2025 Glaucoma screening Diabetes: Retinopathy Screening [facility] Start: 08-24-2025 Hemoglobin A1c measurement Diabetes: Hemoglobin A1C [facility] Start: 08-05-2025 Glaucoma screening Diabetes: Retinopathy Screening [facility] Start: 05-26-2025 End: 05-26-2025 Clinical Support 05/26/2025 10:45 AM EDT Clinical Support [facility] [address] [place] [phone] Gregory Solis DO [address] [place] [address] [facility] Start: 05-24-2025 Glaucoma screening Diabetes: Retinopathy Screening [facility] Start: 05-01-2025 Influenza vaccination [facility] Start: 04-26-2025 End: 04-26-2025 Patient encounter procedure 04/26/2025 4:00 PM EDT Appointment [facility] [address] [facility] [address] [place] [phone] [facility] Start: 04-25-2025 End: 04-25-2025 Patient encounter procedure 04/25/2025 3:40 PM EDT Office Visit [facility] [address] [place] [address] Francisca Quintana, SHIRLEY [address] [place] [phone] [facility] Start: 04-21-2025 End: 04-21-2025 Patient encounter procedure 04/21/2025 1:40 PM EDT Office Visit [facility] [address] [facility] [address] [place] [phone] Yohan Sadler MD [address] [facility] [address] [place] [address] [facility] Start: 04-10-2025 End: 04-10-2026 Alanine aminotransferase [Enzymatic activity/volume] in Serum or Plasma by With P-5'-P Alanine Aminotransferase Lab Routine Hyperlipidemia, unspecified hyperlipidemia type Expected: 04/10/2025, Expires: 04/10/2026 [facility] Work Phone: Comment on above: Expected: 04/10/2025, Expires: Start: 04-10-2025 End: 04-10-2026 Aspartate aminotransferase [Enzymatic activity/volume] in Serum or Plasma by With P-5'-P Aspartate Aminotransferase Lab Routine Hyperlipidemia, unspecified hyperlipidemia type Expected: 04/10/2025, Expires: 04/10/2026 [facility] Work Phone: Comment on above: Expected: 04/10/2025, Expires: Start: 04-10-2025 End: 04-10-2026 Basic metabolic 2000 panel - Serum or Plasma Basic Metabolic Panel Lab Routine 3-vessel coronary artery disease Cardiomyopathy, unspecified type (Multi) Diabetes mellitus of other type without complication, unspecified whether jail insulin use Expected: 04/10/2025, Expires: 04/10/2026 [facility] Work Phone: Comment on above: Expected: 04/10/2025, Expires: Start: 04-10-2025 End: 04-10-2026 CBC panel - Blood by Automated count CBC Lab Routine 3-vessel coronary artery disease Cardiomyopathy, unspecified type (Multi) Diabetes mellitus of other type without complication, 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 Expected: 04/10/2025, Expires: 04/10/2026 [facility] Work Phone: Comment on above: Expected: 04/10/2025, Expires: Start: 04-10-2025 End: 04-10-2026 Lipid 1996 panel - Serum or Plasma Lipid Panel Lab Routine Hyperlipidemia, unspecified hyperlipidemia type Expected: 04/10/2025, Expires: 04/10/2026 [facility] Work Phone: Comment on above: Expected: 04/10/2025, Expires: Start: 04-10-2025 End: 04-10-2027 US Heart Transthoracic Transthoracic Echo Complete Echocardiography Routine 3-vessel coronary artery disease Cardiomyopathy, unspecified type (Multi) Hyperlipidemia, unspecified hyperlipidemia type Diabetes mellitus of other type without complication, 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 Expected: 04/10/2025 (Approximate), Expires: 04/10/2027 [facility] Service Area Work Phone: Comment on [...] Primary hypertension ; Coronary artery disease involving [place] coronary artery of [place] heart without angina pectoris Start: 02-22-2025 End: 02-22-2026 Basic metabolic 1998 panel - Serum or Plasma Basic metabolic panel Lab Routine CKD stage 3b, GFR 30-44 ml/min ([facility]-HCC) Expected: 02/22/2025 (Approximate), Expires: 02/22/2026 [facility] Comment on above: Expected: 02/22/2025 (Approximate), Expi res: 02/22/2026 Start: 02-22-2025 End: 02-22-2026 Microalbumin/Creatinine panel in random Urine Microalbumin / creatinine, urine ratio Lab Routine CKD stage 3b, GFR 30-44 ml/min ([facility]) Expected: 02/22/2025 (Approximate), Expires: 02/22/2026 [facility] Comment on above: Expected: 02/22/2025 (Approximate), Expi res: 02/22/2026 Start: 02-22-2025 End: 02-22-2026 Parathyrin.intact [Mass/volume] in Serum or Plasma PTH, intact Lab Routine CKD stage 3b, GFR 30-44 ml/min ([facility]) Expected: 02/22/2025 (Approximate), Expires: 02/22/2026 [facility] Comment on above: Expected: 02/22/2025 (Approximate), Expi res: 02/22/2026 Start: 02-22-2025 End: 02-22-2026 Urinalysis complete panel - Urine Urinalysis with reflex microscopic (clean catch) Lab Routine CKD stage 3b, GFR 30-44 ml/min ([facility]) Expected: 02/22/2025 (Approximate), Expires: 02/22/2026 [facility] Comment on above: Expected: 02/22/2025 (Approximate), Expi res: 02/22/2026 Start: 02-22-2025 End: 02-22-2026 US Kidney US renal complete Imaging Routine CKD stage 3b, GFR 30-44 ml/min ([facility]) Expected: 02/22/2025, Expires: 02/22/2026 [facility] Work Phone: Comment on above: Expected: 02/22/2025, Expires: Start: 02-21-2025 End: 02-21-2025 Clinical Support [facility] Comment on above: Arrived Start: 01-11-2025 End: 01-11-2025 Patient encounter procedure 01/11/2025 6:00 PM EDT Office Visit [facility] [address] [place] [address] Francisca Quintana NP [address] [place] [address] [facility] [facility] Start: 12-15-2024 Influenza vaccination Influenza Vaccine (#1) [facility] Comment on above: Postponed from 05/01/2024 (Patient Refus ed) Start: 12-13-2024 End: 12-13-2024 Clinical Support 12/13/2024 9:15 AM EDT Clinical Support [facility] [address] [place] [phone] Gregory Solis DO [address] [place] [address] Arrived [facility] Comment on above: Arrived Start: 12-06-2024 End: 12-06-2024 Clinical Support [facility] Comment on above: Arrived Start: [...] (H* (CMS/HCC) Expected: 12/01/2024 (Approximate), Expires: 10/20/2025 [facility] Work Phone: Comment on above: Expected: 12/01/2024 (Approximate), Expi res: 10/20/2025 Start: 12-01-2024 Screening for malignant neoplasm of colon Colorectal Cancer Screening [facility] Comment on above: Postponed from 1958 (Patient Refus ed) Start: 11-30-2024 End: 11-30-2024 Patient encounter procedure 11/30/2024 5:00 PM EDT Office Visit [facility] [address] [place] [address] Francisca Quintana, ACID RECOVERY OPERATOR [address] [place] [address] [facility] Start: 11-09-2024 Glaucoma screening Diabetes: Retinopathy Screening [facility] Start: 11-02-2024 End: 11-02-2024 Clinical Support [facility] Comment on above: Arrived Start: 10-20-2024 End: 10-20-2024 Patient encounter procedure 10/20/2024 4:00 PM EST Office Visit [facility] [address] [place] [address] Enrique Arias, SHIRLEY [address] [place] [phone] Arrived [facility] Comment on above: Arrived Start: 10-19-2024 End: 10-19-2024 Patient encounter procedure 10/19/2024 4:40 PM EST Office Visit [facility] [address] [place] [address] Enrique Arias NP [address] [place] [phone] [facility] Start: 10-11-2024 End: 10-11-2024 Clinical Support [facility] Comment on above: Arrived Start: 10-06-2024 Urine screening for protein Diabetes: Urine Protein Screening [facility] Start: 09-27-2024 End: 09-27-2024 Clinical Support 09/27/2024 8:30 AM EST Clinical Support [facility] [address] [place] [phone] Gregory Solis DO [address] [place] [address] Arrived [facility] Comment on above: Arrived Start: 09-20-2024 End: 09-20-2024 Patient encounter procedure [facility] Comment on above: Arrived Start: 09-07-2024 Influenza vaccination Influenza Vaccine (#1) [facility] Comment on above: Postponed from 05/01/2024 (Patient Refus ed) Start: 08-25-2024 Hemoglobin A1c measurement Diabetes: Hemoglobin A1C [facility] Start: 08-19-2024 End: 08-19-2025 Alanine aminotransferase [Enzymatic activity/volume] in Serum or Plasma by With P-5'-P Alanine Aminotransferase Lab Routine 3-vessel coronary artery disease Hyperlipidemia, unspecified hyperlipidemia type Expected: 08/19/2024 (Approximate), Expires: 08/19/2025 [facility] Work Phone: Comment on above: Expected: 08/19/2024 (Approximate), Expi res: 08/19/2025 Start: 08-19-2024 End: 08-19-2025 Aspartate aminotransferase [Enzymatic activity/volume] in Serum or Plasma by With P-5'-P Aspartate Aminotransferase Lab Routine 3-vessel coronary artery disease Hyperlipidemia, unspecified hyperlipidemia type Expected: 08/19/2024 (Approximate), Expires: 08/19/2025 [facility] Work Phone: Comment on above: Expected: 08/19/2024 (Approximate), Expi res: 08/19/2025 Start: 08-19-2024 End: 08-19-2025 Basic metabolic 2000 panel - Serum or Plasma Basic Metabolic Panel Lab Routine 3-vessel coronary artery disease Cardiomyopathy, unspecified type (Multi) Expected: 08/19/2024 (Approximate), Expires: 08/19/2025 [facility] Work Phone: Comment on above: Expected: 08/19/2024 (Approximate), Expi res: 08/19/2025 Start: 08-19-2024 End: 08-19-2025 CBC panel - Blood by Automated count CBC Lab Routine 3-vessel coronary artery disease Cardiomyopathy, unspecified type (Multi) Expected: 08/19/2024 (Approximate), Expires: 08/19/2025 [facility] Work Phone: Comment on above: Expected: 08/19/2024 (Approximate), Expi res: 08/19/2025 Start: 08-19-2024 End: 08-19-2025 In-Center Sleep Study In-Center Sleep Study Sleep Center Routine Cardiomyopathy, unspecified type (Multi) Snoring Expected: 08/19/2024 (Approximate), Expires: 08/19/2025 [facility] Work Phone: Comment on above: Expected: 08/19/2024 (Approximate), Expi res: 08/19/2025 Start: 08-19-2024 End: 08-19-2025 Lipid 1996 panel - Serum or Plasma Lipid Panel Lab Routine 3-vessel coronary artery disease Hyperlipidemia, unspecified hyperlipidemia type Expected: 08/19/2024 (Approximate), Expires: 08/19/2025 [facility] Service Area Work Phone: Comment on above: Expected: 08/19/2024 (Approximate), Expi res: 08/19/2025 Start: 08-05-2024 End: 08-05-2024 Patient encounter procedure 08/05/2024 11:45 AM EST Office Visit [facility] [address] [place] [address] Gregory Solis DO [address] [place] [address] Arrived [facility] Comment on above: Arrived Start: 07-13-2024 End: 07-13-2024 Patient encounter procedure 07/13/2024 4:00 PM EST Office Visit [facility] [address] [place] [address] Enrique Arias NP [address] [place] [address] [facility] Start: 07-13-2024 End: 07-13-2025 CBC W Auto Differential panel - Blood CBC and differential Lab Routine Primary hypertension (CMS/HCC) 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 edema, without long-term current use of insulin ([facility]) Expected: 07/13/2024 (Approximate), Expires: 07/13/2025 [facility] Comment on above: Expected: 07/13/2024 (Approximate), Expi res: 07/13/2025 Start: 07-13-2024 End: 07-13-2025 Comprehensive metabolic 2000 panel - Serum or Plasma Comprehensive metabolic panel Lab Routine Primary hypertension ([facility]) 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 edema, without long-term current use of insulin ([facility]) Expected: 07/13/2024 (Approximate), Expires: 07/13/2025 [facility] Comment on above: Expected: 07/13/2024 (Approximate), Expi res: 07/13/2025 Start: 07-13-2024 End: 07-13-2025 Hemoglobin A1c/Hemoglobin.total in Blood Hemoglobin A1c Lab Routine 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 edema, without long-term current use of insulin ([facility]) Expected: 07/13/2024 (Approximate), Expires: 07/13/2025 [facility] Comment on above: Expected: 07/13/2024 (Approximate), Expi res: 07/13/2025 Start: 07-13-2024 End: 07-13-2025 Lipid 1996 panel - Serum or Plasma Lipid panel Lab Routine Hyperlipidemia, unspecified hyperlipidemia type ([facility]) Expected: 07/13/2024 (Approximate), Expires: 07/13/2025 [facility] Comment on above: Expected: 07/13/2024 (Approximate), Expi res: 07/13/2025 Start: 07-13-2024 End: 07-13-2025 TSH W/REFLEX TO FT4 TSH W/REFLEX TO FT4 Lab Routine Primary hypertension ([facility]) Expected: 07/13/2024 (Approximate), Expires: 07/13/2025 [facility] Work Phone: Comment on above: Expected: 07/13/2024 (Approximate), Expi res: 07/13/2025 Start: 07-07-2024 End: 07-07-2024 Patient encounter procedure 07/07/2024 8:40 AM EST Procedure Visit [facility] Gregory Solis DO [address] [place] [address] [facility] Start: 07-06-2024 End: 07-06-2024 Patient encounter procedure 07/06/2024 4:00 PM EST Office [facility] [address] [place] [address] Enrique Arias, SHIRLEY [address] [place] [address] [facility] Start: 07-05-2024 End: 07-05-2024 Patient encounter procedure 07/05/2024 11:10 AM EST Office Visit [facility] [address] [facility] [address] [place] [address] Yohan Sadler MD [address] [facility] [address] [place] [address] [facility] Start: 06-02-2024 End: 06-02-2024 Patient encounter procedure 06/02/2024 10:00 AM EDT Procedure Visit [facility] Gregory Solis DO [address] [place] [address] [facility] Start: 05-01-2024 COVID-19 Vaccine ( season) COVID-19 Vaccine ( season) [facility] Start: 05-01-2024 Influenza vaccination Influenza Vaccine (#1) [facility] Start: 02-28-2024 Influenza vaccination Influenza Vaccine (#1) [facility] Comment on above: Postponed from 05/01/2023 (Patient Refus ed) Start: 01-04-2024 Hemoglobin A1c measurement Diabetes: Hemoglobin A1C [facility] Start: 12-02-2023 End: 12-02-2023 Patient encounter procedure 12/02/2023 3:30 PM EDT Office Visit [facility] [address] [place] [address] Shaikh Pearce MD [address] [place] [address] [facility] Start: 10-01-2023 End: 10-01-2024 Lipid 1996 panel - Serum or Plasma Lipid Panel Lab Routine Hyperlipidemia, unspecified hyperlipidemia type Expected: 10/01/2023 (Approximate), Expires: 10/01/2024 [facility] Service Area Work Phone: Comment on above: Expected: 10/01/2023 (Approximate), Expi res: 10/01/2024 Start: 08-04-2023 FUV, Provider: Yohan Sadler, Status: Pen, Time: 10:50 AM FUV, Provider: Yohan Sadler, Status: Pen, Time: 10:50 AM [facility] [employer] 250 DO Work Phone: Start: 05-01-2023 Influenza vaccination Influenza Vaccine (#1) [facility] Start: 01-20-2022 FUV, Provider: Yohan Sadler, Status: Pen, Time: 3:50 PM FUV, Provider: Yohan Sadler, Status: Pen, Time: 3:50 PM [facility] Athlete Builder 250 DO Work Phone: Start: 2018 RSV High Risk: (Elderly (60+) or Population) (1 - Risk 60-74 years 1-dose series) RSV High Risk: (Elderly (60+) or Population) (1 - Risk 60-74 years 1-dose series) [facility] Start: 2008 Prostate specific antigen measurement PSA Prostate Cancer Screening [facility] Start: 2008 Zoster Vaccines (1 of 2) Zoster Vaccines (1 of 2) [facility] Start: 1980 DTaP/Tdap/Td Vaccines (1 - Tdap) DTaP/Tdap/Td Vaccines (1 - Tdap) [facility] Start: 1977 Pneumococcal vaccination Pneumococcal Vaccine (1 of 2 - PCV) [facility] Start: 1977 Urine screening for protein Diabetes: Urine Protein Screening [facility] Start: 1976 Hepatitis C screening Hepatitis C Screening [facility] Start: 1968 Diabetic foot examination Diabetes: Foot Exam [facility] Start: 1968 Glaucoma screening Diabetes: Retinopathy Screening [facility] Start: 1964 Pneumococcal Vaccine: 65+ Years (1 - PCV) Pneumococcal Vaccine: 65+ Years (1 - PCV) [facility] Start: 1964 Pneumococcal Vaccine: 65+ Years (1 of 2 - PCV) Pneumococcal Vaccine: 65+ Years (1 of 2 - PCV) [facility] Start: 1964 Pneumococcal Vaccine: Pediatrics (0 to 5 Years) and At-Risk Patients (6 to 64 Years) (1 - PCV) Pneumococcal Vaccine: Pediatrics (0 to 5 Years) and At-Risk Patients (6 to 64 Years) (1 - PCV) [facility] Start: 12-20-1959 MMR Vaccines (1 of 1 - Standard series) MMR Vaccines (1 of 1 - Standard series) [facility] Start: 06-20-1959 COVID-19 Vaccine (#1) COVID-19 Vaccine (#1) [facility] Start: 1958 Hemoglobin A1c measurement Diabetes: Hemoglobin A1C [facility] Start: 1958 HIV screening HIV Screening [facility] Start: 1958 Lipid panel Lipid Panel [facility] Start: 1958 Screening for malignant neoplasm of colon [facility] Start: 1958 Urine screening for protein Diabetes: Urine Protein Screening [facility] Start: 1958 Yearly Adult Physical Yearly Adult Physical [facility] Microalbumin/Creatin ine panel in random Urine Microalbumin / creatinine urine ratio Lab Routine Type 2 diabetes mellitus with hyperglycemia (CMS/HCC) Primary hypertension (CMS/HCC) Ordered: 10/20/2024 [facility] Comment on above: Ordered: 10/20/2024 Payers Date Payer Category Payer Self-pay [id number] 2018 Blue Cross Blue Shield [id number] [facility] Member Subscriber Plan / Payer (Effective 2018-Present) Name: Gian Sandoval Relation to Subscriber: Self Name: Gian Sandoval Payer ID: [id number] ([facility]) Type: Not on file Address: [id number] [id number] 2018 Unknown 1959 Unknown [id number] 1958 Unknown [id number] 2.16.840.1.214629.3.579. 2.356 1958 Unknown [id number] 2.16.840.1.877453.3.579. 2.356 1958 Unknown [id number] 2.16.840.1.172032.3.579. 2.356 1958 Unknown [id number] 2.16.840.1.755957.3.579. 2.593 1958 Unknown [id number] 2.16.840.1.740501.3.579. 2.593 1958 Unknown [id number] 2.16.840.1.775008.3.579. 2.593 1958 Unknown [id number] 2.16.840.1.715343.3.579. 2.593 1958 Unknown [id number] 2.16.840.1.033429.3.579. 2.593 1958 Unknown [id number] 2.16.840.1.449224.3.579. 2.1244 1958 Unknown [id number] 2.16.840.1.249126.3.579. 2.1244 1958 Unknown [id number] 2.16.840.1.822691.3.579. 2.125 1958 Unknown [id number] 2.16.840.1.497188.3.579. 2.125 1958 Unknown [id number] 2.840.1.950914.3.579. 2.125 1958 Unknown [id number] 2.16.840.1.511190.3.579. 2.1258 1958 Unknown [id number] 2.840.1.536182.3.579. 2.125 1958 Unknown [id number] 2..840.1.477230.3.579. 2.125 1958 Unknown [id number] 2..840.1.441969.3.579. 2.125 1958 Unknown [id number] 2.16.840.1.254558.3.579. 2.125 1958 Unknown [id number] 2.840.1.231329.3.579. 2.125 1958 Unknown [id number] 2.16.840.1.804934.3.579. 2.125 1958 Unknown [id number] 2.16.840.1.112184.3.579. 2.125 1958 Unknown [id number] 2.16.840.1.710491.3.579. 2.125 1958 Unknown [id number] 2.16.840.1.386713.3.579. 2.1259 1958 Unknown [id number] 2.16.840.1.628099.3.579. 2.1259 1958 Unknown [id number] 2.16.840.1.485329.3.579. 2.1259 1958 Unknown [id number] 2.16.840.1.532777.3.579. 2.9 1958 Unknown [id number] 2.16.840.1.633540.3.579. 2.1259 1958 Unknown [id number] 2.16.840.1.207171.3.579. 2.9 1958 Unknown [id number] 2.16.840.1.903318.3.579. 2.1258 Unknown [id number] 2.16.840.1.904124.3.579. 2.531 Social History Date Type Detail Facility Start: 12-24-2021 End: 12-02-2023 Tobacco smoking status MEIS Ex-smoker (finding) [facility] Start: 1960 Sex Assigned At Male [facility] Start: 10-01-2023 End: 03-02-2024 Former smoker Former smoker -[facility] 250 DO Work Phone: Comment on above: QUIT IN 1999; Start: 09-02-2023 End: 10-01-2023 Tobacco smoking status [facility] Never smoked tobacco [facility] Work Phone: Start: 10-01-2023 End: 12-02-2023 Tobacco use and exposure Smokeless tobacco non-user [facility] Work Phone: Start: 10-01-2023 End: 04-14-2025 Alcohol intake Lifetime non-drinker (finding) [facility] Work Phone: Start: 10-01-2023 End: 03-02-2024 Tobacco use panel [facility] Work Phone: Start: 1960 Sex Assigned At Not on file [facility] Work Phone: Start: 09-21-2023 End: 08-19-2024 Exposure to SARS-CoV-2 (event) Not sure [facility] History of tobacco use Current smoker [facility] History of tobacco use Cigarette Smoker [facility] History of tobacco use Passive smoker [facility] Start: 08-19-2024 End: 04-10-2025 Alcoholic beverage intake Ex-drinker (finding) [facility] Work Phone: Start: 07-25-2022 Sex Male [facility] Medical Equipment Procedure Code Equipment Code Equipment Origin al Text Equipment Identifier Dates 1 each by Other route if needed [id number] Start: 06-23-2023 USE TO CHECK FAS TING BLOOD SUGAR EVERY 12 HOURS [id number] Start: 12-21-2023 End: 08-02-2024 USE TO CHECK FAS TING BLOOD SUGAR EVERY 12 HOURS [id number] Start: 08-02-2024 End: 03-06-2025 Twice a day. Use as instructed [id number] Start: 03-06-2025 Clinical Notes 10-01-2023 to 04-14-2025 [...] 1.25 MG/0.05ML Route: Intravitreal, Site: Left Eye [facility]: [address]-7, Lot: [id number], Expiration date: 07/18/2025 Post-op Post injection exam [...] increased pain, redness, decreased vision or concerns. [facility] 04-14-2025 History of Present illness Narrative Images [...] 1.25 MG/0.05ML Route: Intravitreal, Site: Left Eye [facility]: [address]-1, Lot: [id number], Expiration date: 07/18/2025 Post-op Post injection exam [...] vision or concerns. documented in this encounter [facility] 04-10-2025 History of Present illness Narrative HPI [...] for up to 3 doses total. 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 documented in this encounter [facility] Work Phone: 04-10-2025 Instructions Sujata Bermudez [...] instructions on exercise. documented in this encounter [facility] Work Phone: 04-07-2025 Note Time Out 04/07/2025. 11:24 AM. Confirmed correct patient, procedure, site, and patient consented. Anesthesia Topical anesthesia was used. Anesthetic medications included Lidocaine 2%, Proparacaine 0.5%. Procedure Preparation included 5% betadine to ocular surface, eyelid speculum. A 30 gauge needle was used. Injection: 1.25 mg Bevacizumab 1.25 MG/0.05ML Route: Intravitreal, Site: Right Eye [facility]: [address]-9, Lot: [id number], Expiration date: 05/08/2025 Post-op Post injection exam [...] increased pain, redness, decreased vision or concerns. [facility] 04-07-2025 Note Right Eye Quality was good. Scan locations included subfoveal. Progression has been stable. Findings include abnormal foveal contour. Left Eye Quality was good. Scan locations included subfoveal. Progression has been stable. Findings include abnormal foveal contour, epiretinal membrane. Notes Increased macular volume both eyes (OU). Stable. [facility] 04-07-2025 History of Present illness Narrative Images [...] 1.25 MG/0.05ML Route: Intravitreal, Site: Right Eye [facility]: [address]-5, Lot: [id number], Expiration date: 05/08/2025 Post-op Post injection exam [...] vision or concerns. documented in this encounter [facility] 03-07-2025 Note Time Out 03/07/2025. 10:30 AM. Confirmed correct patient, procedure, site, and patient consented. Anesthesia Topical anesthesia was used. Anesthetic medications included Lidocaine 2%, Proparacaine 0.5%. Procedure Preparation included 5% betadine to ocular surface, eyelid speculum. Injection: 1.25 mg Bevacizumab 1.25 MG/0.05ML Route: Intravitreal, Site: Left Eye [facility]: [address]-8, Lot: [id number], Expiration date: 04/02/2025 Post-op Post injection exam [...] increased pain, redness, decreased vision or concerns. [facility] 03-07-2025 History of Present illness Narrative Images [...] 1.25 MG/0.05ML Route: Intravitreal, Site: Left Eye [facility]: [address]-8, Lot: [id number], Expiration date: 04/02/2025 Post-op Post injection exam [...] vision or concerns. documented in this encounter [facility] 02-22-2025 History of Present illness Narrative Associated Problem(s): Diabetes mellitus type 2 with complications (HCC) HTN, Retinopathy, nephropathy Associated Problem(s): CKD stage 3b, GFR 30-44 ml/min ([facility]) Will see if can get SGLT 2 [...] being taken. He does not see a assistant controller.Eye exam is current. Hypertension This is a [...] includes retinopathy. There is no history of CAD/DC, CVA, heart failure or PVD. SUBJECTIVE: MEDICATIONS: [...] prn dose changes Coronary artery disease involving [place] coronary artery of [place] heart without angina pectoris Statin, asa, arb, [...] (Completed) CKD stage 3b, GFR 30-44 ml/min ([facility]) Will see if can get SGLT 2 or possible GLP 1 med Check US check other labs for kidneys Relevant Orders US renal complete Basic metabolic panel PTH, intact Urinalysis with reflex microscopic (clean catch) Microalbumin / creatinine, urine ratio Diabetes mellitus type 2 with complications (HCC) HTN, Retinopathy, nephropathy Associated Problem(s): Coronary artery disease involving [place] coronary artery of [place] heart without angina pectoris Statin, asa, arb, [...] good diabetes control documented in this encounter [facility] 02-22-2025 Instructions Francisca Quintana NP - 02/22/2025 [...] plus 3 device documented in this encounter [facility] 02-21-2025 Note Time Out 02/21/2025. 10:12 AM. Confirmed correct patient, procedure, site, and patient consented. Anesthesia Topical anesthesia was used. Anesthetic medications included Lidocaine 2%, Proparacaine 0.5%. Procedure Preparation included 5% betadine to ocular surface, eyelid speculum. A 30 gauge needle was used. Injection: 1.25 mg Bevacizumab 1.25 MG/0.05ML Route: Intravitreal, Site: Right Eye [place]: [address]-6, Lot: [id number], Expiration date: 04/02/2025 Post-op Post injection exam [...] increased pain, redness, decreased vision or concerns. [facility] 02-21-2025 Note Right Eye Quality was poor. Scan locations included subfoveal. Progression has been stable. Findings include abnormal foveal contour, intraretinal fluid. Left Eye Quality was poor. Scan locations included subfoveal. Progression has been stable. Findings include abnormal foveal contour, intraretinal fluid. [facility] 02-21-2025 History of Present illness Narrative Images [...] 1.25 MG/0.05ML Route: Intravitreal, Site: Right Eye [facility]: [address]-8, Lot: [id number], Expiration date: 04/02/2025 Post-op Post injection exam [...] vision or concerns. documented in this encounter [facility] 01-17-2025 Note Time Out 01/17/2025. 10:45 AM. Confirmed correct patient, procedure, site, and patient consented. Anesthesia Topical anesthesia was used. Anesthetic medications included Lidocaine 2%, Proparacaine 0.5%. Procedure Preparation included 5% betadine to ocular surface, eyelid speculum. Injection: 1.25 mg Bevacizumab 1.25 MG/0.05ML Route: Intravitreal, Site: Left Eye [facility]: [address]-8, Lot: [id number], Expiration date: 04/02/2025 Post-op Post injection exam [...] increased pain, redness, decreased vision or concerns. [facility] 01-17-2025 History of Present illness Narrative Images from the original note were not included. 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) - Intravitreal Injection, Pharmacologic Agent - OS [...] 1.25 MG/0.05ML Route: Intravitreal, Site: Left Eye [facility]: [address]-9, Lot: [id number], Expiration date: 04/02/2025 Post-op Post injection exam [...] vision or concerns. documented in this encounter [facility] 01-10-2025 Note Time Out 01/10/2025. 9:49 AM. Confirmed correct patient, procedure, site, and patient consented. Anesthesia Topical anesthesia was used. Anesthetic medications included Lidocaine 2%, Proparacaine 0.5%. Procedure Preparation included 5% betadine to ocular surface, eyelid speculum. A 30 gauge needle was used. Injection: 1.25 mg Bevacizumab 1.25 MG/0.05ML Route: Intravitreal, Site: Right Eye [facility]: [address]-5, Lot: [id number], Expiration date: 07/18/2025 Post-op Post injection exam [...] increased pain, redness, decreased vision or concerns. [facility] 01-10-2025 Note Right Eye Quality was good. Scan locations included subfoveal. Progression has improved. Findings include epiretinal membrane, intraretinal fluid. Left Eye Quality was good. Scan locations included subfoveal. Progression has been stable. Findings include epiretinal membrane, intraretinal fluid. [facility] 01-10-2025 History of Present illness Narrative Images from the original note were not included. Assessment/Plan Diagnoses and all orders for this visit: 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) - OCT, Retina - OU - Both [...] 1.25 MG/0.05ML Route: Intravitreal, Site: Right Eye [facility]: [address]-2, Lot: [id number], Expiration date: 07/18/2025 Post-op Post injection exam [...] vision or concerns. documented in this encounter [facility] 12-13-2024 Note Time Out 12/13/2024. 9:31 AM. Confirmed correct patient, procedure, site, and patient consented. Anesthesia Topical anesthesia was used. Anesthetic medications included Lidocaine 2%, Proparacaine 0.5%. Procedure Preparation included 5% betadine to ocular surface, eyelid speculum. Injection: 1.25 mg Bevacizumab 1.25 MG/0.05ML Route: Intravitreal, Site: Left Eye [facility]: [address]-2, Lot: [id number], Expiration date: 01/31/2025 Post-op Post injection exam [...] increased pain, redness, decreased vision or concerns. [facility] 12-13-2024 History of Present illness Narrative Images from the original note were not included. 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) - Intravitreal Injection, Pharmacologic Agent - OS [...] 1.25 MG/0.05ML Route: Intravitreal, Site: Left Eye [facility]: [address]-7, Lot: [id number], Expiration date: 01/31/2025 Post-op Post injection exam [...] vision or concerns. documented in this encounter [facility] 12-06-2024 Note Right Eye Quality was good. Scan locations included subfoveal. Progression has been stable. Findings include abnormal foveal contour, epiretinal membrane, intraretinal fluid. Left Eye Quality was good. Scan locations included subfoveal. Progression has been stable. Findings include abnormal foveal contour, epiretinal membrane, intraretinal fluid. [facility] 12-06-2024 Note Time Out 12/06/2024. 10:24 AM. Confirmed correct patient, procedure, site, and patient consented. Anesthesia Topical anesthesia was used. Anesthetic medications included Lidocaine 2%, Proparacaine 0.5%. Procedure Preparation included 5% betadine to ocular surface, eyelid speculum. A 30 gauge needle was used. Injection: 1.25 mg Bevacizumab 1.25 MG/0.05ML Route: Intravitreal, Site: Right Eye [facility]: [address]-7, Lot: [id number], Expiration date: 01/31/2025 Post-op Post injection exam [...] increased pain, redness, decreased vision or concerns. [facility] 12-06-2024 History of Present illness Narrative Images [...] Daily 90 tablet 0 fish oil concentrate ([place]-3) 1000 MG capsule Take 2 capsules (2 [...] Medical History: Diagnosis Date Cataract Diabetes mellitus ([facility]) Diabetic retinopathy ([facility]) Allergies Allergen Reactions Glipizide Other Reaction(s): GI [...] Normal Normal Refraction Final Rx Sphere Cylinder [place] [facility] Add Right -0.75 -0.75 100 20/40+ +2.75 Left -0.25 -1.00 060 20/40- +2.75 Expiration Date: 12/06/2025 Assessment/Plan Diagnoses and all orders for this visit: 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 documented in this encounter [facility] 11-08-2024 Note Time Out 11/08/2024. 1:33 PM. Confirmed correct patient, procedure, site, and patient consented. Anesthesia Topical anesthesia was used. Anesthetic medications included Lidocaine 2%, Proparacaine 0.5%. Procedure Preparation included 5% betadine to ocular surface, eyelid speculum. Injection: 1.25 mg Bevacizumab 1.25 MG/0.05ML Route: Intravitreal, Site: Left Eye [facility]: [address]-3, Lot: [id number], Expiration date: 07/18/2025 Post-op Post injection exam [...] increased pain, redness, decreased vision or concerns. [facility] 11-08-2024 History of Present illness Narrative Images from the original note were not included. 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) - Intravitreal Injection, Pharmacologic Agent - OS [...] 1.25 MG/0.05ML Route: Intravitreal, Site: Left Eye [facility]: [address]-5, Lot: [id number], Expiration date: 07/18/2025 Post-op Post injection exam [...] vision or concerns. documented in this encounter [facility] 11-02-2024 Note Time Out 11/02/2024. 9:10 AM. Confirmed correct patient, procedure, site, and patient consented. Anesthesia Topical anesthesia was used. Anesthetic medications included Lidocaine 2%, Proparacaine 0.5%. Procedure Preparation included 5% betadine to ocular surface, eyelid speculum. A 30 gauge needle was used. Injection: 1.25 mg Bevacizumab 1.25 MG/0.05ML Route: Intravitreal, Site: Right Eye [facility]: [address]-9, Lot: [id number], Expiration date: 07/18/2025 Post-op Post injection exam [...] increased pain, redness, decreased vision or concerns. [facility] 11-02-2024 Note Right Eye Quality was good. Scan locations included subfoveal. Progression has improved. Findings include abnormal foveal contour, intraretinal fluid. Left Eye Quality was good. Scan locations included subfoveal. Progression has improved. Findings include abnormal foveal contour, intraretinal fluid. [facility] 11-02-2024 History of Present illness Narrative Images from the original note were not included. Assessment/Plan Diagnoses and all orders for this visit: 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) - Intravitreal Injection, Pharmacologic Agent - OD [...] 1.25 MG/0.05ML Route: Intravitreal, Site: Right Eye [facility]: [address]-5, Lot: [id number], Expiration date: 07/18/2025 Post-op Post injection exam [...] vision or concerns. documented in this encounter [facility] 10-20-2024 History of Present illness Narrative Associated Problem(s): Chronic kidney disease (CKD) stage G3a/A1, moderately decreased glomerular filtration rate (GFR) between 45-59 mL/min/1.73 square meter and albuminuria creatinine ratio less than 30 mg/g (H* ([facility]) Kidney function has decreased in past year to 45- will discontinue metformin and trial Farxiga at 10mg. Re-evaluate in 6 weeks. Recheck CMP in 6 weeks Associated Problem(s): Type 2 diabetes mellitus without complication, without long-term current use of insulin ([facility]) Currently taking Metformin 500mg BID Glimepiride 2mg [...] ALBUMIN GLOBULIN RATIO 0.9 0.8 Resulting Agency [facility] DMII: Currently taking Metformin 500mg BID Glimepiride [...] for hypertriglyceridemia Relevant Medications fish oil concentrate ([place]-3) 1000 MG capsule rosuvastatin (Crestor) 20 MG tablet Coronary artery disease involving [place] coronary artery of [place] heart without angina pectoris ([facility]) Relevant Medications valsartan (Diovan) 80 MG tablet dapagliflozin (Farxiga) 10 MG Primary hypertension ([facility]) - Primary Currently taking Metoprolol and Valsartan Does not check BP at home; Denies orthostatic changes, dizziness, cough, shortness of breath, swelling in extremities. Continue current regimen. Given BP log, advised pt to record BP and bring log back with them to next visit. Type 2 diabetes mellitus without complication, without long-term current use of insulin ([facility]) Currently taking Metformin 500mg BID Glimepiride 2mg [...] creatinine ratio less than 30 mg/g (H* ([facility]) Kidney function has decreased in past year to 45- will discontinue metformin and trial Farxiga at 10mg. Re-evaluate in 6 weeks. Recheck CMP in 6 weeks Relevant Medications dapagliflozin (Farxiga) 10 MG Associated Problem(s): Hyperlipemia ([facility]) Currently taking Rosuvastatin Denies any myalgias. Will [...] to next visit. documented in this encounter [facility] 10-20-2024 Instructions Enrique Arias NP - 10/20/2024 [...] and simple sugars. documented in this encounter [facility] 10-11-2024 Note Time Out 10/11/2024. 9:53 AM. Confirmed correct patient, procedure, site, and patient consented. Anesthesia Topical anesthesia was used. Anesthetic medications included Lidocaine 2%, Proparacaine 0.5%. Procedure Preparation included 5% betadine to ocular surface, eyelid speculum. Injection: 1.25 mg Bevacizumab 1.25 MG/0.05ML Route: Intravitreal, Site: Left Eye [facility]: [address]-4, Lot: [id number], Expiration date: 11/10/2024 Post-op Post injection exam [...] increased pain, redness, decreased vision or concerns. [facility] 10-11-2024 History of Present illness Narrative Images from the original note were not included. 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) - Intravitreal Injection, Pharmacologic Agent - OS [...] 1.25 MG/0.05ML Route: Intravitreal, Site: Left Eye [facility]: [address]-5, Lot: [id number], Expiration date: 11/10/2024 Post-op Post injection exam [...] vision or concerns. documented in this encounter [facility] 09-27-2024 Note Time Out 09/27/2024. 8:32 AM. Confirmed correct patient, procedure, site, and patient consented. Anesthesia Topical anesthesia was used. Anesthetic medications included Lidocaine 2%, Proparacaine 0.5%. Procedure Preparation included 5% betadine to ocular surface, eyelid speculum. A 30 gauge needle was used. Injection: 1.25 mg Bevacizumab 1.25 MG/0.05ML Route: Intravitreal, Site: Right Eye [facility]: [address]-2, Lot: [id number], Expiration date: 11/10/2024 Post-op Post injection exam [...] increased pain, redness, decreased vision or concerns. [facility] 09-27-2024 History of Present illness Narrative Images from the original note were not included. Assessment/Plan Diagnoses and all orders for this visit: 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) - Intravitreal Injection, Pharmacologic Agent - OD [...] 1.25 MG/0.05ML Route: Intravitreal, Site: Right Eye [facility]: [address]-5, Lot: [id number], Expiration date: 11/10/2024 Post-op Post injection exam [...] vision or concerns. documented in this encounter [facility] 09-21-2024 History of Present illness Narrative Pt presents today for a post accident drug screen and BAT for EPC. Pt verified by photo ID. documented in this encounter [facility] 09-20-2024 Note Right Eye Quality was good. Scan locations included subfoveal. Progression has been stable. Findings include abnormal foveal contour, epiretinal membrane, intraretinal fluid. Left Eye Quality was borderline. Scan locations included subfoveal. Progression has been stable. Findings include abnormal foveal contour, epiretinal membrane, intraretinal fluid. [facility] 09-20-2024 History of Present illness Narrative Images from the original note were not included. Assessment/Plan Diagnoses and all orders for this visit: Cystoid macular edema of both eyes Vs. 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 ([facility]) - Mr. Sandoval continues to suffer from edema within the macula of both eyes (OU). At this time I believe this to be a consequence of DME both eyes (OU). He also displays an epiretinal membrane (ERM) both eyes (OU). I have advised for antiVEGF treatment both eyes (OU) to commence to improve swelling. documented in this encounter [facility] 08-19-2024 History of Present illness Narrative Subjective [...] BMI 35.0-35.9,adult 8. Atherosclerotic heart disease of [place] coronary artery without angina pectoris valsartan (Diovan) [...] discussion and plan. documented in this encounter [facility] Work Phone: 08-19-2024 Instructions Elizabeth Campos [...] study 6 months documented in this encounter [facility] Work Phone: 08-08-2024 Telephone encounter Note Patient forgot to tell you he needed all of his prescriptions refilled. LINDA [facility] 08-08-2024 Miscellaneous Notes Patient forgot to tell you he needed all of his prescriptions refilled. LINDA documented in this encounter [facility] 08-05-2024 Note Right Eye Quality was poor. Scan locations included subfoveal. Progression has worsened. Findings include abnormal foveal contour, intraretinal fluid, subretinal fluid. Left Eye Quality was poor. Scan locations included subfoveal. Progression has worsened. Findings include abnormal foveal contour, intraretinal fluid. [facility] 08-05-2024 History of Present illness Narrative Images from the original note were not included. Assessment/Plan Diagnoses and all orders for this visit: Cystoid macular edema of both eyes Vs. Moderate nonproliferative diabetic retinopathy of both eyes with macular edema associated with type 2 diabetes mellitus ([facility]) - Mr. Sandoval returns status post (s/p) [...] discuss antiVEGF therapy. documented in this encounter [facility] 07-13-2024 History of Present illness Narrative Associated Problem(s): 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 edema, without long-term current use of insulin ([facility]) Currently taking Glimepiride and Metformin. Most recent [...] to next visit. documented in this encounter [facility] 07-13-2024 Instructions Enrique Arias NP - 07/13/2024 [...] and simple sugars. documented in this encounter [facility] 05-24-2024 History of Present illness Narrative Images [...] different lens options were explained including the [id number] fees for any upgrades. Intraocular lens (IOL) [...] pressure and cholesterol. documented in this encounter [facility] 10-07-2023 History of Present illness Narrative j documented in this encounter [facility] 10-01-2023 History of Present illness Narrative Subjective [...] of other type without complication, 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 Never smoked any substance Scribe Attestation By signing my name below, Tammy Coats LPN , Scribe attest that this documentation has been prepared under the direction and in the presence of Yohan Sadler MD. documented in this encounter [facility] Work Phone: 10-01-2023 Instructions Ileana Franco [...] of your visit. documented in this encounter [facility] Work Phone: Evaluation note No assessment inform [facility] Work Phone: Evaluation note Diagnosis 3-vessel coronary artery disease Cardiomyopathy, unspecified type (CMS/HCC) Hyperlipidemia, unspecified hyperlipidemia type Diabetes mellitus of other type without complication, 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 (CMS/HCC) Never smoked any substance documented in this encounter [facility] Work Phone: Evaluation note* Diagnosis Type [...] hyperlipidemia type (CMS/HCC) Coronary artery disease involving [place] coronary artery of [place] heart without angina pectoris (CMS/HCC) Primary hypertension [...] hyperlipidemia type (CMS/HCC) Coronary artery disease involving [place] coronary artery of [place] heart without angina pectoris (CMS/HCC) Age-related nuclear cataract of both eyes- Primary documented in this encounter [facility]* Diagnosis Type 2 diabetes mellitus without complication, without long-term current use of insulin (CMS/HCC)- Primary Hyperlipidemia, unspecified hyperlipidemia type (CMS/HCC) Coronary artery disease involving [place] coronary artery of [place] heart without angina pectoris (CMS/HCC) Primary hypertension [...] hyperlipidemia type (CMS/HCC) Coronary artery disease involving [place] coronary artery of [place] heart without angina pectoris (CMS/HCC) Primary hypertension (CMS/HCC)- Primary Unspecified essential hypertension 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 edema, without long-term current use of insulin (CMS/HCC) Hyperlipidemia, unspecified hyperlipidemia type (CMS/HCC) documented in this encounter [facility] note* Diagnosis Type 2 diabetes mellitus without complication, without long-term current use of insulin (CMS/HCC)- Primary Hyperlipidemia, unspecified hyperlipidemia type (CMS/HCC) Coronary artery disease involving [place] coronary artery of [place] heart without angina pectoris (CMS/HCC) Primary hypertension [...] hyperlipidemia type (CMS/HCC) Coronary artery disease involving [place] coronary artery of [place] heart without angina pectoris (CMS/HCC) Primary hypertension (CMS/HCC)- Primary Unspecified essential hypertension 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 edema, without long-term current use of insulin (CMS/HCC) Hyperlipidemia, unspecified hyperlipidemia type (CMS/HCC) Type 2 diabetes mellitus with hyperglycemia (CMS/HCC) documented in this encounter [facility] note* Diagnosis Type 2 diabetes mellitus without complication, without long-term current use of insulin (CMS/HCC)- Primary Hyperlipidemia, unspecified hyperlipidemia type (CMS/HCC) Coronary artery disease involving [place] coronary artery of [place] heart without angina pectoris (CMS/HCC) Primary hypertension [...] hyperlipidemia type (CMS/HCC) Coronary artery disease involving [place] coronary artery of [place] heart without angina pectoris (CMS/HCC) Primary hypertension [...] diabetes mellitus (CMS/HCC) documented in this encounter [facility] note* Diagnosis Type 2 diabetes mellitus without complication, without long-term current use of insulin (CMS/HCC)- Primary Hyperlipidemia, unspecified hyperlipidemia type (CMS/HCC) Coronary artery disease involving [place] coronary artery of [place] heart without angina pectoris (CMS/HCC) Primary hypertension [...] hyperlipidemia type (CMS/HCC) Coronary artery disease involving [place] coronary artery of [place] heart without angina pectoris (CMS/HCC) Primary hypertension (CMS/HCC)- Primary Unspecified essential hypertension 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 edema, without long-term current use of insulin (CMS/HCC) Hyperlipidemia, unspecified hyperlipidemia type (CMS/HCC) Coronary artery disease involving [place] coronary artery of [place] heart without angina pectoris (CMS/HCC)- Primary Type 2 diabetes mellitus without complication, without long-term current use of insulin (CMS/HCC) Type 2 diabetes mellitus with hyperglycemia (CMS/HCC) Hyperlipidemia, unspecified hyperlipidemia type (CMS/HCC) Irregular heart rate documented in this encounter [facility]Evaluation note* Diagnosis Type 2 diabetes mellitus without complication, without long-term current use of insulin (CMS/HCC)- Primary Hyperlipidemia, unspecified hyperlipidemia type (CMS/HCC) Coronary artery disease involving [place] coronary artery of [place] heart without angina pectoris (CMS/HCC) Primary hypertension [...] hyperlipidemia type (CMS/HCC) Coronary artery disease involving [place] coronary artery of [place] heart without angina pectoris (CMS/HCC) Primary hypertension [...] diabetes mellitus (CMS/HCC) documented in this encounter [facility] note* Diagnosis Age-related nuclear cataract of both eyes- Primary 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 (CMS/HCC) documented in this encounter [facility] note* Diagnosis Diabetes mellitus type II, non insulin dependent (Multi)- Primary Type II or unspecified type diabetes mellitus without mention of complication, not stated as uncontrolled 3-vessel coronary artery disease Cardiomyopathy, unspecified type (Multi) Snoring Other dyspnea and respiratory abnormality Hyperlipidemia, unspecified hyperlipidemia type Never smoked any substance BMI 35.0-35.9,adult Atherosclerotic heart disease of [place] coronary artery without angina pectoris documented in this encounter [facility] Work Phone: Evaluation note* Diagnosis Type 2 diabetes mellitus without complication, without long-term current use of insulin (CMS/HCC)- Primary Hyperlipidemia, unspecified hyperlipidemia type (CMS/HCC) Coronary artery disease involving [place] coronary artery of [place] heart without angina pectoris (CMS/HCC) Primary hypertension [...] hyperlipidemia type (CMS/HCC) Coronary artery disease involving [place] coronary artery of [place] heart without angina pectoris (CMS/HCC) Primary hypertension [...] diabetes mellitus (CMS/HCC) documented in this encounter [facility]Evaluation note* Diagnosis Type 2 diabetes mellitus without complication, without long-term current use of insulin (CMS/HCC)- Primary Hyperlipidemia, unspecified hyperlipidemia type (CMS/HCC) Coronary artery disease involving [place] coronary artery of [place] heart without angina pectoris (CMS/HCC) Primary hypertension [...] hyperlipidemia type (CMS/HCC) Coronary artery disease involving [place] coronary artery of [place] heart without angina pectoris (CMS/HCC) Primary hypertension (CMS/HCC)- Primary Unspecified essential hypertension 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 edema, without long-term current use of insulin (CMS/HCC) Hyperlipidemia, unspecified hyperlipidemia type (CMS/HCC) 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 (CMS/HCC)- Primary documented in this encounter [facility]Evaluation note* Diagnosis Type 2 diabetes mellitus without complication, without long-term current use of insulin (CMS/HCC)- Primary Hyperlipidemia, unspecified hyperlipidemia type (CMS/HCC) Coronary artery disease involving [place] coronary artery of [place] heart without angina pectoris (CMS/HCC) Primary hypertension [...] hyperlipidemia type (CMS/HCC) Coronary artery disease involving [place] coronary artery of [place] heart without angina pectoris (CMS/HCC) Primary hypertension (CMS/HCC)- Primary Unspecified essential hypertension 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 edema, without long-term current use of insulin ([facility]) Hyperlipidemia, unspecified hyperlipidemia type ([facility]) 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 ([facility]/HCC)- Primary documented in this encounter [facility]Evaluation note* Diagnosis Type 2 diabetes mellitus without complication, without long-term current use of insulin ([facility])- Primary Hyperlipidemia, unspecified hyperlipidemia type ([facility]) Coronary artery disease involving [place] coronary artery of [place] heart without angina pectoris ([facility]) Primary hypertension ([facility]) Unspecified essential hypertension Encounter for screening for malignant neoplasm of colon Primary hypertension ([facility])- Primary Unspecified essential hypertension Type 2 diabetes mellitus without complication, without long-term current use of insulin ([facility]) Primary hypertension ([facility])- Primary Unspecified essential hypertension 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 edema, without long-term current use of insulin ([facility]) Hyperlipidemia, unspecified hyperlipidemia type ([facility]) Coronary artery disease involving [place] coronary artery of [place] heart without angina pectoris ([facility]) Primary hypertension ([facility])- Primary Unspecified essential hypertension 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 edema, without long-term current use of insulin ([facility]) Hyperlipidemia, unspecified hyperlipidemia type ([facility]/HCC) Primary hypertension ([facility])- Primary Unspecified essential hypertension Type 2 diabetes mellitus without complication, without long-term current use of insulin ([facility]) Type 2 diabetes mellitus with hyperglycemia ([facility]) Irregular heart rate Hyperlipidemia, unspecified hyperlipidemia type ([facility]/HCC) Coronary artery disease involving [place] coronary artery of [place] heart without angina pectoris ([facility]) Chronic kidney disease (CKD) stage G3a/A1, moderately decreased glomerular filtration rate (GFR) between 45-59 mL/min/1.73 square meter and albuminuria creatinine ratio less than 30 mg/g (H* ([facility]) documented in this encounter [facility]Evaluation note* Diagnosis Type 2 diabetes mellitus without complication, without long-term current use of insulin ([facility])- Primary Hyperlipidemia, unspecified hyperlipidemia type ([facility]) Coronary artery disease involving [place] coronary artery of [place] heart without angina pectoris (CMS/HCC) Primary hypertension [...] hyperlipidemia type (CMS/HCC) Coronary artery disease involving [place] coronary artery of [place] heart without angina pectoris (CMS/HCC) Primary hypertension (CMS/HCC)- Primary Unspecified essential hypertension 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 edema, without long-term current use of insulin (CMS/HCC) Hyperlipidemia, unspecified hyperlipidemia type (CMS/HCC) Primary hypertension (CMS/HCC)- Primary Unspecified essential hypertension Type 2 diabetes mellitus without complication, without long-term current use of insulin ([facility]) Type 2 diabetes mellitus with hyperglycemia ([facility]) Irregular heart rate Hyperlipidemia, unspecified hyperlipidemia type ([facility]/HCC) Coronary artery disease involving [place] coronary artery of [place] heart without angina pectoris (CMS/HCC) Chronic kidney disease (CKD) stage G3a/A1, moderately decreased glomerular filtration rate (GFR) between 45-59 mL/min/1.73 square meter and albuminuria creatinine ratio less than 30 mg/g (H* (CMS/[facility]) 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 (CMS/HCC)- Primary Moderate nonproliferative diabetic retinopathy of both eyes with macular edema associated with type 2 diabetes mellitus (CMS/HCC) documented in this encounter [facility]Evaluation note* Diagnosis Type 2 diabetes mellitus without complication, without long-term current use of insulin (CMS/HCC)- Primary Hyperlipidemia, unspecified hyperlipidemia type (CMS/HCC) Coronary artery disease involving [place] coronary artery of [place] heart without angina pectoris (CMS/HCC) Primary hypertension [...] edema, without long-term current use of insulin ([facility]/HCC) Hyperlipidemia, unspecified hyperlipidemia type (CMS/HCC) Coronary artery disease involving [place] coronary artery of [place] heart without angina pectoris (CMS/HCC) Primary hypertension ([facility]/HCC)- Primary Unspecified essential hypertension 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 edema, without long-term current use of insulin (CMS/HCC) Hyperlipidemia, unspecified hyperlipidemia type (CMS/HCC) Primary hypertension ([facility]/HCC)- Primary Unspecified essential hypertension Type 2 diabetes mellitus without complication, without long-term current use of insulin ([facility]) Type 2 diabetes mellitus with hyperglycemia ([facility]) Irregular heart rate Hyperlipidemia, unspecified hyperlipidemia type ([facility]/HCC) Coronary artery disease involving [place] coronary artery of [place] heart without angina pectoris ([facility]) Chronic kidney disease (CKD) stage G3a/A1, moderately decreased glomerular filtration rate (GFR) between 45-59 mL/min/1.73 square meter and albuminuria creatinine ratio less than 30 mg/g (H* (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)- Primary documented in this encounter [facility] HealthcareEvaluation note* Diagnosis Type 2 diabetes mellitus without complication, without long-term current use of insulin ([facility]/HCC)- Primary Hyperlipidemia, unspecified hyperlipidemia type (CMS/HCC) Coronary artery disease involving [place] coronary artery of [place] heart without angina pectoris (/HCC) Primary hypertension ([facility]) Unspecified essential hypertension Encounter for screening for malignant neoplasm of colon Primary hypertension ([facility])- Primary Unspecified essential hypertension Type 2 diabetes mellitus without complication, without long-term current use of insulin (CMS/HCC) Primary hypertension ([facility]/HCC)- Primary Unspecified essential hypertension 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 edema, without long-term current use of insulin ([facility]/HCC) Hyperlipidemia, unspecified hyperlipidemia type (CMS/HCC) Coronary artery disease involving [place] coronary artery of [place] heart without angina pectoris (CMS/HCC) Primary hypertension ([facility]/HCC)- Primary Unspecified essential hypertension 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 edema, without long-term current use of insulin (CMS/HCC) Hyperlipidemia, unspecified hyperlipidemia type ([facility]) Encounter for drug screening Primary hypertension ([facility])- Primary Unspecified essential hypertension Type 2 diabetes mellitus without complication, without long-term current use of insulin ([facility]) Type 2 diabetes mellitus with hyperglycemia ([facility]) Irregular heart rate Hyperlipidemia, unspecified hyperlipidemia type ([facility]) Coronary artery disease involving [place] coronary artery of [place] heart without angina pectoris ([facility]) Chronic kidney disease (CKD) stage G3a/A1, moderately decreased glomerular filtration rate (GFR) between 45-59 mL/min/1.73 square meter and albuminuria creatinine ratio less than 30 mg/g (H* ([facility]) documented in this encounter [facility] HealthcareEvaluation note* Diagnosis Type 2 diabetes mellitus without complication, without long-term current use of insulin- Primary Hyperlipidemia, unspecified hyperlipidemia type ([facility]) Coronary artery disease involving [place] coronary artery of [place] heart without angina pectoris ([facility]) Primary hypertension ([facility]) Unspecified essential hypertension Encounter for screening for malignant neoplasm of colon Primary hypertension ([facility])- Primary Unspecified essential hypertension Type 2 diabetes mellitus without complication, without long-term current use of insulin Primary hypertension ([facility])- Primary Unspecified essential hypertension 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 edema, without long-term current use of insulin ([facility]) Hyperlipidemia, unspecified hyperlipidemia type ([facility]) Coronary artery disease involving [place] coronary artery of [place] heart without angina pectoris ([facility]) Primary hypertension ([facility])- Primary Unspecified essential hypertension 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 edema, without long-term current use of insulin ([facility]) Hyperlipidemia, unspecified hyperlipidemia type ([facility]) Primary hypertension ([facility])- Primary Unspecified essential hypertension Type 2 diabetes mellitus without complication, without long-term current use of insulin Type 2 diabetes mellitus with hyperglycemia ([facility]) Irregular heart rate Hyperlipidemia, unspecified hyperlipidemia type ([facility]) Coronary artery disease involving [place] coronary artery of [place] heart without angina pectoris ([facility]) Chronic kidney disease (CKD) stage G3a/A1, moderately decreased glomerular filtration rate (GFR) between 45-59 mL/min/1.73 square meter and albuminuria creatinine ratio less than 30 mg/g (H* 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 (CMS/HCC)- Primary Bilateral posterior capsular opacification Unspecified after-cataract documented in this encounter [facility] HealthcareEvaluation note* Diagnosis Type 2 diabetes mellitus without complication, without long-term current use of insulin- Primary Hyperlipidemia, unspecified hyperlipidemia type (CMS/HCC) Coronary artery disease involving [place] coronary artery of [place] heart without angina pectoris (CMS/HCC) Primary hypertension [...] hyperlipidemia type (CMS/HCC) Coronary artery disease involving [place] coronary artery of [place] heart without angina pectoris (CMS/HCC) Primary hypertension [...] hyperlipidemia type (CMS/HCC) Coronary artery disease involving [place] coronary artery of [place] heart without angina pectoris (CMS/HCC) Chronic kidney disease (CKD) stage G3a/A1, moderately decreased glomerular filtration rate (GFR) between 45-59 mL/min/1.73 square meter and albuminuria creatinine ratio less than 30 mg/g (H* 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 (CMS/HCC)- Primary documented in this encounter [facility] HealthcareEvaluation note* Diagnosis Type 2 diabetes mellitus without complication, without long-term current use of insulin- Primary Hyperlipidemia, unspecified hyperlipidemia type (CMS/HCC) Coronary artery disease involving [place] coronary artery of [place] heart without angina pectoris (CMS/HCC) Primary hypertension [...] hyperlipidemia type (CMS/HCC) Coronary artery disease involving [place] coronary artery of [place] heart without angina pectoris (CMS/HCC) Primary hypertension [...] insulin Type 2 diabetes mellitus with hyperglycemia (CMS/[facility]) Irregular heart rate Hyperlipidemia, unspecified hyperlipidemia type (CMS/HCC) Coronary artery disease involving [place] coronary artery of [place] heart without angina pectoris (CMS/HCC) Chronic kidney disease (CKD) stage G3a/A1, moderately decreased glomerular filtration rate (GFR) between 45-59 mL/min/1.73 square meter and albuminuria creatinine ratio less than 30 mg/g (H* 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 (CMS/HCC)- Primary documented in this encounter [facility] HealthcareEvaluation note* Diagnosis Type 2 diabetes mellitus without complication, without long-term current use of insulin- Primary Hyperlipidemia, unspecified hyperlipidemia type (CMS/HCC) Coronary artery disease involving [place] coronary artery of [place] heart without angina pectoris (CMS/HCC) Primary hypertension [...] hyperlipidemia type (CMS/HCC) Coronary artery disease involving [place] coronary artery of [place] heart without angina pectoris (CMS/HCC) Primary hypertension [...] hyperlipidemia type (CMS/HCC) Coronary artery disease involving [place] coronary artery of [place] heart without angina pectoris (CMS/HCC) Chronic kidney disease (CKD) stage G3a/A1, moderately decreased glomerular filtration rate (GFR) between 45-59 mL/min/1.73 square meter and albuminuria creatinine ratio less than 30 mg/g (H* 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 (CMS/HCC)- Primary documented in this encounter [facility] HealthcareEvaluation note* Diagnosis Type 2 diabetes mellitus without complication, without long-term current use of insulin- Primary Hyperlipidemia, unspecified hyperlipidemia type (CMS/HCC) Coronary artery disease involving [place] coronary artery of [place] heart without angina pectoris (CMS/HCC) Primary hypertension [...] hyperlipidemia type (CMS/HCC) Coronary artery disease involving [place] coronary artery of [place] heart without angina pectoris (CMS/HCC) Primary hypertension [...] hyperlipidemia type (CMS/HCC) Coronary artery disease involving [place] coronary artery of [place] heart without angina pectoris (CMS/HCC) Chronic kidney disease (CKD) stage G3a/A1, moderately decreased glomerular filtration rate (GFR) between 45-59 mL/min/1.73 square meter and albuminuria creatinine ratio less than 30 mg/g (H* Type 2 diabetes mellitus without complication, without long-term current use of insulin documented in this encounter [facility] HealthcareEvaluation note* Diagnosis Type 2 diabetes mellitus without complication, without long-term current use of insulin (HCC)- Primary Hyperlipidemia, unspecified hyperlipidemia type Coronary artery disease involving [place] coronary artery of [place] heart without angina pectoris Primary hypertension Unspecified [...] unspecified hyperlipidemia type Coronary artery disease involving [place] coronary artery of [place] heart without angina pectoris Primary hypertension- Primary [...] unspecified hyperlipidemia type Coronary artery disease involving [place] coronary artery of [place] heart without angina pectoris Chronic kidney disease (CKD) stage G3a/A1, moderately decreased glomerular filtration rate (GFR) between 45-59 mL/min/1.73 square meter and albuminuria creatinine ratio less than 30 mg/g (H* ([facility]) 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 (HCC)- Primary documented in this encounter [facility] HealthcareEvaluation note* Diagnosis Type 2 diabetes mellitus without complication, without long-term current use of insulin (HCC)- Primary Hyperlipidemia, unspecified hyperlipidemia type Coronary artery disease involving [place] coronary artery of [place] heart without angina pectoris Primary hypertension Unspecified [...] unspecified hyperlipidemia type Coronary artery disease involving [place] coronary artery of [place] heart without angina pectoris Primary hypertension- Primary [...] unspecified hyperlipidemia type Coronary artery disease involving [place] coronary artery of [place] heart without angina pectoris Chronic kidney disease (CKD) stage G3a/A1, moderately decreased glomerular filtration rate (GFR) between 45-59 mL/min/1.73 square meter and albuminuria creatinine ratio less than 30 mg/g (H* (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 (HCC) Type 2 diabetes mellitus without complication, without long-term current use of insulin (HCC) Hyperlipidemia, unspecified hyperlipidemia type Primary hypertension Unspecified essential hypertension Coronary artery disease involving [place] coronary artery of [place] heart without angina pectoris Diabetes mellitus type 2 with complications (HCC) documented in this encounter [facility] HealthcareEvaluation note* Diagnosis Type 2 diabetes mellitus without complication, without long-term current use of insulin (HCC)- Primary Hyperlipidemia, unspecified hyperlipidemia type Coronary artery disease involving [place] coronary artery of [place] heart without angina pectoris Primary hypertension Unspecified [...] unspecified hyperlipidemia type Coronary artery disease involving [place] coronary artery of [place] heart without angina pectoris Primary hypertension- Primary [...] unspecified hyperlipidemia type Coronary artery disease involving [place] coronary artery of [place] heart without angina pectoris Chronic kidney disease (CKD) stage G3a/A1, moderately decreased glomerular filtration rate (GFR) between 45-59 mL/min/1.73 square meter and albuminuria creatinine ratio less than 30 mg/g (H* ([facility]) CKD stage 3b, GFR 30-44 ml/min ([facility] Primary Moderate nonproliferative diabetic retinopathy of both eyes with macular edema associated with type 2 diabetes mellitus ([facility]) Type 2 diabetes mellitus without complication, without long-term current use of insulin ([facility]) Hyperlipidemia, unspecified hyperlipidemia type Primary hypertension Unspecified essential hypertension Coronary artery disease involving [place] coronary artery of [place] heart without angina pectoris Diabetes mellitus type 2 with complications ([facility]) Type 2 diabetes mellitus with hyperglycemia ([facility])- Primary documented in this encounter [facility] HealthcareEvaluation note* Diagnosis Type 2 diabetes mellitus without complication, without long-term current use of insulin ([facility])- Primary Hyperlipidemia, unspecified hyperlipidemia type Coronary artery disease involving [place] coronary artery of [place] heart without angina pectoris Primary hypertension Unspecified essential hypertension Encounter for screening for malignant neoplasm of colon Primary hypertension- Primary Unspecified essential hypertension Type 2 diabetes mellitus without complication, without long-term current use of insulin ([facility]) Primary hypertension- Primary Unspecified essential hypertension 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 edema, without long-term current use of insulin ([facility]) Hyperlipidemia, unspecified hyperlipidemia type Coronary artery disease involving [place] coronary artery of [place] heart without angina pectoris Primary hypertension- Primary Unspecified essential hypertension 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 edema, without long-term current use of insulin ([facility]) Hyperlipidemia, unspecified hyperlipidemia type Primary hypertension- Primary Unspecified essential hypertension Type 2 diabetes mellitus without complication, without long-term current use of insulin ([facility]) Type 2 diabetes mellitus with hyperglycemia ([facility]) Irregular heart rate Hyperlipidemia, unspecified hyperlipidemia type Coronary artery disease involving [place] coronary artery of [place] heart without angina pectoris Chronic kidney disease (CKD) stage G3a/A1, moderately decreased glomerular filtration rate (GFR) between 45-59 mL/min/1.73 square meter and albuminuria creatinine ratio less than 30 mg/g (H* ([facility]) CKD stage 3b, GFR 30-44 ml/min ([facility] Primary Moderate nonproliferative diabetic retinopathy of both eyes with macular edema associated with type 2 diabetes mellitus (HCC) Type 2 diabetes mellitus without complication, without long-term current use of insulin (HCC) Hyperlipidemia, unspecified hyperlipidemia type Primary hypertension Unspecified essential hypertension Coronary artery disease involving [place] coronary artery of [place] heart without angina pectoris 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)- Primary Hyperlipidemia, unspecified hyperlipidemia type Coronary artery disease involving [place] coronary artery of [place] heart without angina pectoris Primary hypertension Unspecified essential hypertension Encounter for screening for malignant neoplasm of colon Primary hypertension- Primary Unspecified essential hypertension Type 2 diabetes mellitus without complication, without long-term current use of insulin ([facility]) Primary hypertension- Primary Unspecified essential hypertension 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 edema, without long-term current use of insulin ([facility]) Hyperlipidemia, unspecified hyperlipidemia type Coronary artery disease involving [place] coronary artery of [place] heart without angina pectoris Primary hypertension- Primary Unspecified essential hypertension 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 edema, without long-term current use of insulin ([facility]) Hyperlipidemia, unspecified hyperlipidemia type Primary hypertension- Primary Unspecified essential hypertension Type 2 diabetes mellitus without complication, without long-term current use of insulin ([facility]) Type 2 diabetes mellitus with hyperglycemia ([facility]) Irregular heart rate Hyperlipidemia, unspecified hyperlipidemia type Coronary artery disease involving [place] coronary artery of [place] heart without angina pectoris Chronic kidney disease (CKD) stage G3a/A1, moderately decreased glomerular filtration rate (GFR) between 45-59 mL/min/1.73 square meter and albuminuria creatinine ratio less than 30 mg/g (H* ([facility]) CKD stage 3b, GFR 30-44 ml/min ([facility] Primary Moderate nonproliferative diabetic retinopathy of both eyes with macular edema associated with type 2 diabetes mellitus (HCC) Type 2 diabetes mellitus without complication, without long-term current use of insulin ([facility]) Hyperlipidemia, unspecified hyperlipidemia type Primary hypertension Unspecified essential hypertension Coronary artery disease involving [place] coronary artery of [place] heart without angina pectoris Diabetes mellitus type 2 with complications (HCC) Coronary artery disease involving [place] coronary artery of [place] heart without angina pectoris documented in this encounter [facility] HealthcareEvaluation note* Diagnosis Type 2 diabetes mellitus without complication, without long-term current use of insulin (HCC)- Primary Hyperlipidemia, unspecified hyperlipidemia type Coronary artery disease involving [place] coronary artery of [place] heart without angina pectoris Primary hypertension Unspecified [...] unspecified hyperlipidemia type Coronary artery disease involving [place] coronary artery of [place] heart without angina pectoris Primary hypertension- Primary Unspecified essential hypertension 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 edema, without long-term current use of insulin (HCC) Hyperlipidemia, unspecified hyperlipidemia type Primary hypertension- Primary Unspecified essential hypertension Type 2 diabetes mellitus without complication, without long-term current use of insulin (HCC) Type 2 diabetes mellitus with hyperglycemia ([facility]) Irregular heart rate Hyperlipidemia, unspecified hyperlipidemia type Coronary artery disease involving [place] coronary artery of [place] heart without angina pectoris Chronic kidney disease (CKD) stage G3a/A1, moderately decreased glomerular filtration rate (GFR) between 45-59 mL/min/1.73 square meter and albuminuria creatinine ratio less than 30 mg/g (H* ([facility]) CKD stage 3b, GFR 30-44 ml/min ([facility] Primary Moderate nonproliferative diabetic retinopathy of both eyes with macular edema associated with type 2 diabetes mellitus (HCC) Type 2 diabetes mellitus without complication, without long-term current use of insulin (HCC) Hyperlipidemia, unspecified hyperlipidemia type Primary hypertension Unspecified essential hypertension Coronary artery disease involving [place] coronary artery of [place] heart without angina pectoris Diabetes mellitus type 2 with complications (HCC) 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 (HCC)- Primary documented in this encounter [facility] HealthcareEvaluation note* Diagnosis 3-vessel coronary artery disease Cardiomyopathy, unspecified type (Multi) Hyperlipidemia, unspecified hyperlipidemia type Diabetes mellitus of other type without complication, 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 Never smoked any substance BMI 36.0-36.9,adult documented in this encounter [facility] Work Phone: Evaluation note* Diagnosis Type 2 diabetes mellitus without complication, without long-term current use of insulin (HCC)- Primary Hyperlipidemia, unspecified hyperlipidemia type Coronary artery disease involving [place] coronary artery of [place] heart without angina pectoris Primary hypertension Unspecified [...] unspecified hyperlipidemia type Coronary artery disease involving [place] coronary artery of [place] heart without angina pectoris Primary hypertension- Primary Unspecified essential hypertension 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 edema, without long-term current use of insulin ([facility]) Hyperlipidemia, unspecified hyperlipidemia type Primary hypertension- Primary Unspecified essential hypertension Type 2 diabetes mellitus without complication, without long-term current use of insulin ([facility]) Type 2 diabetes mellitus with hyperglycemia ([facility]) Irregular heart rate Hyperlipidemia, unspecified hyperlipidemia type Coronary artery disease involving [place] coronary artery of [place] heart without angina pectoris Chronic kidney disease (CKD) stage G3a/A1, moderately decreased glomerular filtration rate (GFR) between 45-59 mL/min/1.73 square meter and albuminuria creatinine ratio less than 30 mg/g (H* ([facility]) CKD stage 3b, GFR 30-44 ml/min ([facility] Primary Moderate nonproliferative diabetic retinopathy of both eyes with macular edema associated with type 2 diabetes mellitus (HCC) Type 2 diabetes mellitus without complication, without long-term current use of insulin (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)- Primary Hyperlipidemia, unspecified hyperlipidemia type Coronary artery disease involving [place] coronary artery of [place] heart without angina pectoris Primary hypertension Unspecified [...] unspecified hyperlipidemia type Coronary artery disease involving [place] coronary artery of [place] heart without angina pectoris Primary hypertension- Primary [...] unspecified hyperlipidemia type Coronary artery disease involving [place] coronary artery of [place] heart without angina pectoris Chronic kidney disease (CKD) stage G3a/A1, moderately decreased glomerular filtration rate (GFR) between 45-59 mL/min/1.73 square meter and albuminuria creatinine ratio less than 30 mg/g (H* ([facility]) CKD stage 3b, GFR 30-44 ml/min ([facility] Primary Moderate nonproliferative diabetic retinopathy of both eyes with macular edema associated with type 2 diabetes mellitus (HCC) Type 2 diabetes mellitus without complication, without long-term current use of insulin (HCC) Hyperlipidemia, unspecified hyperlipidemia type Primary hypertension Unspecified essential hypertension Coronary artery disease involving [place] coronary artery of [place] heart without angina pectoris Diabetes mellitus type 2 with complications (HCC) Hyperlipidemia, unspecified hyperlipidemia type documented in this encounter [facility] (narrative)* Consultation (Routine) - Authorized Specialty Diagnoses / Procedures Referred By Contac t Referred To Contact Cardiology Diagnoses 3-vessel coronary artery disease Procedures Follow Up In Cardiology Yohan Sadler MD [address] [address], [address] [address] Yohan Sadler MD [facility] 2, [address] [address] Referral ID Status Reason Start Date Expiration Date V isits Requested Visits Authorized [id number] Authorized 10/01/2023 09/30/2024 1 1 Healthcare Work Phone: Chief Complaint and Reason for [...] Recorded Date/ Time Advance Directives No December 16 022 1:51pm Summary Purpose Chief Complaint * GIAN SANDOVAL is being seen for a 6 month follow-up of. * Patient is in the office for follow-up for CAD. Last November 2021 he underwent diagnostic cardiac catheterization which revealed occlusion of the mid RCA and left circumflex with mature elmf-df-ohfrt and left to left collateral network. Ejection [...] and [facility] was felt to be [...] Shaikh Ramses MD Primary Care Provider Active [employer]astics Factory Worker Relationship Specialty Start Date End Date Shaikh Pearce MD PCP - General 12/13/21 [employer] Factory Worker Relationship Specialty Start Date End Date Shaikh Pearce MD PCP - General Internal Medicine 07/01/23 Plastics Factory Worker Relationship Specialty Start Date End Date Shaikh Pearce MD PCP - General Internal Medicine 07/01/23 Plastics Factory Worker Relationship Specialty Start Date End Date Fuentes Wilson MD [address] [place] [address] PCP - General Family Medicine 05/10/24 Aiyana Tucker OD [address] [place] [address] Referring Physician Optometry 11/11/23 Enrique Arias NP [address] [place] [address] Nurse Practitioner Family Medicine 05/10/24 [employer]astics Factory Worker Relationship Specialty Start Date End Date Fuentes Wilson MD [address] [place] [address] PCP - General Family Medicine 05/10/24 Aiyana Tucker OD [address] [place] [address] Referring Physician Optometry 11/11/23 Enrique Arias NP [address] [place] [address] Nurse Practitioner Family Medicine 05/10/24 [employer]astics Factory Worker Relationship Specialty Start Date End Date Fuentes Wilson MD [address] [place] [address] PCP - General Family Medicine 05/10/24 [place] [address] [place] [address] Referring Physician Optometry 11/11/23 Enrique Arias NP [address] [place] [address] Nurse Practitioner Family Medicine 05/10/24 [employer] Factory Worker Relationship Specialty Start Date End Date Fuentes Wilson MD [address] [place] [address] PCP - General Family Medicine 05/10/24 Aiyana Tucker OD [address] [place] [address] Referring Physician Optometry 11/11/23 Enrique Arias NP [address] [place] [address] Nurse Practitioner Family Medicine 05/10/24 [employer]astics Factory Worker Relationship Specialty Start Date End Date Fuentes Wilson MD [address] [place] [address] PCP - General Family Medicine 05/10/24 Aiyana Tucker OD [address] [place] [address] Referring Physician Optometry 11/11/23 Enrique Arias NP [address] [place] [address] Nurse Practitioner Family Medicine 05/10/24 [employer]astics Factory Worker Relationship Specialty Start Date End Date Fuentes Wilson MD [address] [place] [address] PCP - General Family Medicine 05/10/24 Aiyana Tucker OD [address] [place] [address] Referring Physician Optometry 11/11/23 Enrique Arias NP [address] [place] [address] Nurse Practitioner Family Medicine 05/10/24 [employer] Factory Worker Relationship Specialty Start Date End Date Fuentes Wilson MD [address] [place] [address] PCP - General Family Medicine 05/10/24 Aiyana Tucker OD [address] [place] [address] Referring Physician Optometry 11/11/23 Enrique Arias NP [address] [place] [address] Nurse Practitioner Family Medicine 05/10/24 [employer] Factory Worker Relationship Specialty Start Date End Date Fuentes Wilson MD [address] [place] [address] PCP - General Family Medicine 05/10/24 Aiyana Tucker OD [address] [place] [address] Referring Physician Optometry 11/11/23 Enrique Arias NP [address] [place] [address] Nurse Practitioner Family Medicine 05/10/24 [employer] Factory Worker Relationship Specialty Start Date End Date Fuentes Wilson MD [address] [place] [address] PCP - General Family Medicine 05/10/24 Aiyana Tucker OD [address] [place] [address] Referring Physician Optometry 11/11/23 Enrique Arias NP [address] [place] [address] Nurse Practitioner Family Medicine 05/10/24 [employer] Factory Worker Relationship Specialty Start Date End Date Fuentes Wilson MD [address] [place] [address] PCP - General Family Medicine 05/10/24 Aiyana Tucker OD [address] [place] [address] Referring Physician Optometry 11/11/23 Enrique Arias NP [address] [place] [address] Nurse Practitioner Family Medicine 05/10/24 [employer]astics Factory Worker Relationship Specialty Start Date End Date Enrique Arias APRN-SOLVENT MIXER [address] [place] [address] PCP - General Family Medicine 08/19/24 [employer] Factory Worker Relationship Specialty Start Date End Date Fuentes Wilson MD [address] [place] [address] PCP - General Family Medicine 05/10/24 Aiyana Tucker OD [address] [place] [address] Referring Physician Optometry 11/11/23 Enrique Arias NP [address] [place] [address] Nurse Practitioner Family Medicine 05/10/24 [employer]astics Factory Worker Relationship Specialty Start Date End Date Fuentes Wilson MD [address] [place] [address] PCP - General Family Medicine 05/10/24 Aiyana Tucker OD [address] [place] [address] Referring Physician Optometry 11/11/23 Enrique Arias NP [address] [place] [address] Nurse Practitioner Family Medicine 05/10/24 [employer] Factory Worker Relationship Specialty Start Date End Date Fuentes Wilson MD [address] [place] [address] PCP - General Family Medicine 05/10/24 Aiyana Tucker OD [address] [place] [address] Referring Physician Optometry 11/11/23 Enrique Arias NP [address] [place] [address] Nurse Practitioner Family Medicine 05/10/24 [employer] Factory Worker Relationship Specialty Start Date End Date Fuentes Wilson MD [address] [place] [address] PCP - General Family Medicine 05/10/24 Aiyana Tucker OD [address] [place] [address] Referring Physician Optometry 11/11/23 Enrique Arias NP [address] [place] [address] Nurse Practitioner Family Medicine 05/10/24 [employer] Factory Worker Relationship Specialty Start Date End Date Fuentes Wilson MD [address] [place] [address] PCP - General Family Medicine 05/10/24 Aiyana Tucker OD [address] [place] [address] Referring Physician Optometry 11/11/23 Enrique Arias NP [address] [place] [address] Nurse Practitioner Family Medicine 05/10/24 [employer] Factory Worker Relationship Specialty Start Date End Date Fuentes Wilson MD [address] [place] [address] PCP - General Family Medicine 05/10/24 Aiyana Tucker OD [address] [place] [address] Referring Physician Optometry 11/11/23 Enrique Arias NP [address] [place] [address] Nurse Practitioner Family Medicine 05/10/24 [employer] Factory Worker Relationship Specialty Start Date End Date Fuentes Wilson MD [address] [place] [address] PCP - General Family Medicine 05/10/24 Aiyana Tucker OD [address] [place] [facility] [place] [address] Referring Physician Optometry 11/11/23 Enrique Arias NP [address] [place] [address] Nurse Practitioner Family Medicine 05/10/24 [employer] Factory Worker Relationship Specialty Start Date End Date Fuentes Wilson MD [address] [place] [address] PCP - General Family Medicine 05/10/24 Aiyana Tucker OD [address] [facility] [address] Referring Physician Optometry 11/11/23 Enrique Arias NP [address] [place] [address] Nurse Practitioner Family Medicine 05/10/24 [employer]astics Factory Worker Relationship Specialty Start Date End Date Fuentes Wilson MD [address] [place] [address] PCP - General Family Medicine 05/10/24 Aiyana Tucker OD [address] [facility] [place] [address] Referring Physician Optometry 11/11/23 Enrique Arias NP [address] [place] [address] Nurse Practitioner Family Medicine 05/10/24 [employer] Factory Worker Relationship Specialty Start Date End Date Fuentes Wilson MD [address] [place] [address] PCP - General Family Medicine 05/10/24 Aiyana Tucker OD [address] [place] [address] Referring Physician Optometry 11/11/23 Enrique Arias NP [address] [place] [address] Nurse Practitioner Family Medicine 05/10/24 [employer] Factory Worker Relationship Specialty Start Date End Date Fuentes Wilson MD [address] [place] [address] PCP - General Family Medicine 05/10/24 Aiyana Tucker OD [address] [place] [address] Referring Physician Optometry 11/11/23 Enrique Arias NP [address] [place] [address] Nurse Practitioner Family Medicine 05/10/24 [employer] Factory Worker Relationship Specialty Start Date End Date Fuentes Wilson MD [address] [place] [address] PCP - General Family Medicine 05/10/24 Aiyana Tucker OD [address] [place] [address] Referring Physician Optometry 11/11/23 Enrique Arias NP [address] [place] [address] Nurse Practitioner Family Medicine 05/10/24 [employer] Factory Worker Relationship Specialty Start Date End Date Fuentes Wilson MD [address] [place] [address] PCP - General Family Medicine 05/10/24 Aiyana Tucker OD [address] [place] [address] Referring Physician Optometry 11/11/23 Enrique Arias NP [address] [place] [address] Nurse Practitioner Family Medicine 05/10/24 [employer] Factory Worker Relationship Specialty Start Date End Date Fuentes Wilson MD [address] [place] [address] PCP - General Family Medicine 05/10/24 Aiyana Tucker OD [address] [facility] [place] [phone] Referring Physician Optometry 11/11/23 Enrique Arias NP [address] [place] [address] Nurse Practitioner Family Medicine 05/10/24 [employer] Factory Worker Relationship Specialty Start Date End Date Fuentes Wilson MD [address] [place] [address] PCP - General Family Medicine 05/10/24 Aiyana Tucker OD [address] [facility] [place] [address] Referring Physician Optometry 11/11/23 Enrique Arias NP [address] [place] [address] Nurse Practitioner Family Medicine 05/10/24 [employer] Factory Worker Relationship Specialty Start Date End Date Fuentes Wilson MD [address] [place] [address] PCP - General Family Medicine 05/10/24 Aiyana Tucker, OD [address] [place] [address] Referring Physician Optometry 11/11/23 Enrique Arias NP [address] [place] [address] Nurse Practitioner Family Medicine 05/10/24 [employer] Factory Worker Relationship Specialty Start Date End Date Fuentes Wilson MD [address] [place] [address] PCP - General Family Medicine 05/10/24 Aiyana Tucker OD [address] [place] [address] Referring Physician Optometry 11/11/23 Enrique Arias NP [address] [place] [address] Nurse Practitioner Family Medicine 05/10/24 [employer]astics Factory Worker Relationship Specialty Start Date End Date Fuentes Wilson MD [address] [place] [address] PCP - General Family Medicine 05/10/24 Aiyana Tucker OD [address] [place] [address] Referring Physician Optometry 11/11/23 Enrique Arias NP [address] [place] [address] Nurse Practitioner Family Medicine 05/10/24 [employer]astics Factory Worker Relationship Specialty Start Date End Date Enirque Arias FIRE WATCHER-SOLVENT MIXER PCP - General Family Medicine 08/19/24 [employer]astics Factory Worker Relationship Specialty Start Date End Date Fuentes Wilson MD [address] [place] [address] PCP - General Family Medicine 05/10/24 Aiyana Tucker OD [address] [place] [address] Referring Physician Optometry 11/11/23 Enrique Arias NP [address] [place] [address] Nurse Practitioner Family Medicine 05/10/24 [employer] Factory Worker Relationship Specialty Start Date End Date Fuentes Wilson MD [address] [place] [address] PCP - General Family Medicine 05/10/24 Aiyana Tucker OD [address] [place] [address] Referring Physician Optometry 11/11/23 Enrique Arias NP [address] [place] [address] Nurse Practitioner Family Medicine 05/10/24 [employer] Factory Worker Relationship Specialty Start Date End Date Fuentes Wilson MD [address] [place] [address] PCP - General Family Medicine 05/10/24 Aiyana Tucker OD [address] [place] [address] Referring Physician Optometry 11/11/23 Enrique Arias NP [address] [place] [address] Nurse Practitioner Family Medicine 05/10/24 Goals (unrecognized section and content) Goals may be documented in a n alternate section (unrecognized sect ion and content) No Status Records FoundNo Status Records FoundNo Status Records FoundNo Status Records FoundNo Status Records FoundNo Status Records FoundNo Status Records Found INFORMATION SOURCE (unrecogn ized section and content) DATE CREATED AUTHOR 02/05/2022 [facility] DATE CREATED AUTHOR AUTHOR'S ORGANIZ ATION 11/07/2022 [facility] DATE CREATED AUTHOR AUTHOR'S ORGANIZ ATION 11/07/2022 [employer] DATE CREATED AUTHOR AUTHOR'S ORGANIZ ATION 01/08/2023 [facility] DATE CREATED AUTHOR AUTHOR'S ORGANIZ ATION 04/03/2023 [facility] DATE CREATED AUTHOR AUTHOR'S ORGANIZ ATION 04/11/2025 [facility] DATE CREATED AUTHOR AUTHOR'S ORGANIZ ATION 04/16/2025 [facility] EPIC Reason for Visit (unrecogniz ed section and content) Reason Comments Follow-up 6-7 month 3-vessel c oronary artery disease Specialty Diagnoses / Procedures Referred By Gurvinder t Referred To Contact Cardiology Diagnoses 3-vessel coronary artery disease Procedures Follow Up In Cardiology Yohan Sadler MD [facility] 2, [address] [address] Phone: tel: fax: Yohan Sadler MD [facility] [facility] 2, [address] [address] Phone: tel: fax: Referral ID Status Reason Start Date Expiration Date V isits Requested Visits Authorized [id number] Authorized 08/19/2024 08/19/2025 1 1 Reason Comments [...] Expiration Date V isits Requested Visits Authorized [id number] Authorized 10/01/2023 09/30/2024 1 1 Reason Comments Retinal Injection Reason Comments Follow-up Blurred Vision Reason Comments Follow-up Retinal Injection Specialty Diagnoses / Procedures Referred By Gurvinder leo Referred To Contact Ophthalmology Diagnoses 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) Procedures [facility] OFFICE/OUTPATIENT [facility] MDM 60 MINUTES Makayla Ramos MD [address] [place] [address] Phone: tel: fax: Makayla Ramos MD [address] [place] [address] Phone: tel: fax: Referral ID Status Reason Start Date Expiration Date Visits Requested Visits Authorized [id number] Authorized Perform Procedure 12/06/2024 06/04/2025 12 12 [...] BE BASED ON THE PRIMARY CLINICAL RECORDS. [facility] provides no warranty or guarantee of the accuracy or completeness of information in this document.
[2025-04-24 07:06] LABS: Glucose Urine UA >=1000 mg/dL (NEGATIVE)
[2025-04-24 07:09] LABS: Anion Gap 11.6; Blood Urea Nitrogen 28.0 mg/dL (7.0-18.0); Calcium 9.1 mg/dL (8.5-10.1); Carbon Dioxide 29.8 mmol/L (21.0-32.0); Chloride 105 mmol/L (98-107); Estimated GFR (African America >60 (>=60 mL/min/1.73m^2); Estimated GFR (Non-African Ame >60 (>=60 mL/min/1.73m^2); Glucose 139 mg/dL (74-106); Potassium 4.4 mmol/L (3.5-5.1); Sodium 142 mmol/L (136-145)
[2025-04-24 07:13] LABS: Cast Seen? SEEN #/LPF (NONE SEEN); Crystals Seen? None Seen #/HPF (None Seen); Microalbum Creatinine Ratio Ur 99.3 mg/g (0.0-29.9)
[2025-04-24 07:14] LABS: Urine Culture Indicated NO
== END 2025-04-24 06:31 | disposition home or self-care (01) ==
LOC: LAB 06:31
PROVIDERS: PCP Nurse Practitioner; Visit Provider Nurse Practitioner
DX: N18.32 Chronic kidney disease, stage 3b (principal)
CPT/HCPCS: 36415; 80048; 81001; 82043; 82570; 83970

== ENCOUNTER 2025-08-05 09:01 | Outpatient (OUT) | payer BC, SELFPAY ==
--- OUTSIDE RECORDS SUMMARY | 2025-07-31 14:00 | XMS_ITS | Encounter Summary ---
Author Organization [facility] Address [address] [place] [place] [address] Care Team Providers Care Self Defense Instructor Name Role Phone Caitlin Aiyana OD Unavailable Fuentes Wilson MD Primary Care Provider [phone] Tanya Arias CIRCUS LABORER Unavailable [phone] Reason for Visit * ReasonCommentsDiabetic Retinopathy Encounter Details DateTypeDepartmentCare Team (Latest Contact Info)Iiqilggjxvf26/01/2025 2:00 PM ESTOffice Visit [facility] [address] [place] [address] Rashad Solis DO [address] [place] [address] 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 (HCC) (Primary Dx) Social History Tobacco UseTypesPacks/DayYears UsedDateSmoking Tobacco: FormerCigarettesPassive Smoke Exposure: PastSmokeless Tobacco: NeverAlcohol UseStandard Drinks/Week CommentsNever0 (1 standard drink = 0.6 oz pure alcohol)PHQ-2AnswerDate Recorded Patient Health Questionnaire-2 [id number] and Gender InformationValue Date RecordedSex Assigned at BirthNot on fileLegal YygRcmf4712/29/2022 8:34 PM EDT Gender IdentityNot on fileSexual OrientationNot on filedocumented as of this encounter Progress Notes * Rashad Solis DO - 07/31/2025 2:00 PM EST Images from the original note were not included. 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 2:29 PM. Confirmed correct patient, procedure, site, and patient consented. Anesthesia Topical anesthesia was used. Anesthetic medications included Lidocaine 2%, Proparacaine 0.5%. Procedure Preparation included 5% betadine to ocular surface, eyelid speculum. A 30 gauge needle was used. Injection: 1.25 mg Bevacizumab 1.25 MG/0.05ML Route: Intravitreal, Site: Right Eye [facility]: [address]-0, Lot: [id number], Expiration date: 08/24/2025 Post-op Post injection exam found visual acuity [...] With intraocular surgery, there is potential for directretinal damage through retinal or RPE tear, or infection, with subsequent vision loss. Informative Intravitreal pamphlet provided as well as an OMIC consent. Of course, the treatment may fail to accomplish the overall therapeutic objectives, which is to stall or decrease the amount of retinal edema/ bleeding, and therefore stall or improve vision loss. Intravitreal Anti-VEGF: Consent was obtained and questions answered. Operative eye was identified, receiving topical proparacaine, 5% betadine, and 2% xylocaine jelly. A lid speculum was placed and the inferotemp. injection site received additional anesthetic with a proparacaine soaked cotton swab.Using calipers (set at 3.5mm for pseudo and 4mm for phakic), the inferotemp. limbus was measured, sclera marked and 2 additional drops of betadine placed. Avoiding any talking to avoid contamination,intravitreal injection was carried out without difficulty. Any residual amount of medication was discarded appropriately. The patient tolerated the procedure well and instructed to call with increased pain, redness, decreased vision or concerns. 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 2:29 PM. Confirmed correct patient, procedure, site, and patient consented. Anesthesia Topical anesthesia was used. Anesthetic medications included Lidocaine 2%, Proparacaine 0.5%. Procedure Preparation included 5% betadine to ocular surface, eyelid speculum. A 30 gauge needle was used. Injection: 1.25 mg Bevacizumab 1.25 MG/0.05ML ??Route: Intravitreal, Site: Right Eye ??[facility]: [address]-4, Lot: [id number], Expiration date: 08/24/2025 Post-op Post injection exam found visual acuity of at least counting fingers, no retinal detachment, perfused optic nerve. The patient tolerated the procedure well. There were no complications. The patient received written and verbal post procedure care education. Post injection medications were not given. Notes Intravitreal antiVEGF Treatment: Risks, benefits and alternatives were discussed for Intravitreal injection with the prescribed antiVEGF agent. ?? With intraocular surgery, there is potential for direct retinal damage through retinal or RPE tear, or infection, with subsequent vision loss. ?? Informative Intravitreal pamphlet provided as well as an OMIC consent. ??Of course, the treatment may fail to accomplish the overall therapeutic objectives, which is to stall or decrease the amount of retinal edema / bleeding, and therefore stall or improve vision loss. Intravitreal Anti-VEGF: ??Consent was obtained and questions answered. ?? Operative eye was identified, receiving topical proparacaine, 5% betadine, and 2% xylocaine jelly. ??A lid speculum was placed and the inferotemp. injection site received additional anesthetic with a proparacaine soaked cotton swab. ??Using calipers (set at 3.5mm for pseudo and 4mm for phakic), the inferotemp. limbus was measured, sclera marked and 2 additional drops of betadine placed. ??Avoiding any talking to avoid contamination, intravitreal injection was carried out without difficulty. Any residual amount of medication was discarded appropriately. The patient tolerated the procedure well and instructed to call with increased pain, redness, decreased vision or concerns. ?? 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
--- OUTSIDE RECORDS SUMMARY | 2025-08-05 09:05 | XMS_ITS | Clinical Summary ---
Author Organization [facility] Address [address] [place] [address] Care Team Providers Care Certified Nurse Operating Room Name Role Phone Aiyana Tucker OD Unavailable Fuentes Wilson MD Primary Care Provider [phone] Tanya Arias INSPECTOR [employer] Unavailable [phone] Allergies Active AllergyReactionsCriticalityNoted SzxyMekkjljvSmlvgqpwb73/01/2024 Other Reaction(s): GI Upset Medications MedicationSigDispense QuantityRefillsLast FilledStart DateEnd DateStatus nitroglycerin (Nitrostat) 0.4 MG SL tablet Indications:Coronary artery disease involving andreafski coronary artery of andreafski heart without angina pectorisPlace 1 tablet (0.4 mg) under the tongue every 5 (five) minutes if needed for chest pain 30 tablet 5Active ketorolac (Acular) 0.4 % ophthalmic solution Indications:Cystoid macular edema of both eyes,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 (HCC)Administer 1 drop into both eyes in the morning and 1 drop at noon and 1 drop in the evening and 1 drop before bedtime. 5 mL 4Active glucose blood (True Metrix Blood Glucose Test) test strip Indications:Type 2 diabetes mellitus with hyperglycemia (HCC)Twice a day. Use as instructed 200 strip 5Active dapagliflozin (Farxiga) 10 MG Indications:CKD stage 3b, GFR 30-44 ml/min ([facility]),Type 2 diabetes mellitus without complication, without long-term current use of insulin (HCC),Type 2 diabetes mellitus with hyperglycemia (HCC)Take 1 tablet (10 mg) by mouth Daily 90 tablet 5Active glimepiride (Amaryl) 2 MG tablet Indications:Type 2 diabetes mellitus without complication, without long-term current use of insulin (HCC)Take 1 tablet (2 mg) by mouth in the morning. Take before meals. 90 tablet 5Active metFORMIN (Glucophage) 500 MG tablet Indications:Type 2 diabetes mellitus with hyperglycemia (HCC)Take 1 tablet (500 mg) by mouth in the morning and 1 tablet (500 mg) in the evening. Take with meals. 180 tablet 5Active metoprolol succinate XL (Toprol-XL) 50 MG 24 hr tablet Indications:Irregular heart rateTake 1 tablet (50 mg) by mouth Daily Do not crush or chew. 90 tablet 5Active rosuvastatin (Crestor) 20 MG tablet Indications:Hyperlipidemia, unspecified hyperlipidemia typeTake 1 tablet (20 mg) by mouth at bedtime 90 tablet 5Active valsartan (Diovan) 80 MG tablet Indications:Coronary artery disease involving andreafski coronary artery of andreafski heart without angina pectorisTake 1 tablet (80 mg) by mouth Daily 90 tablet 5Active aspirin 81 MG EC tablet Indications:Type 2 diabetes mellitus without complication, without long-term current use of insulin (HCC),Type 2 diabetes mellitus with hyperglycemia (HCC) Take 1 tablet (81 mg) by mouth in the morning. 90 tablet Expired fish oil concentrate (Oden-3) 1000 MG capsule Indications:Hyperlipidemia, unspecified hyperlipidemia typeTake 2 capsules (2 g) by mouth in the morning and 2 capsules (2 g) before bedtime. 360 capsule /ExpiredHospital, Clinic, or Other Facility Administered MedicationOrdered DoseRouteFrequencyStart DateEnd DateStatus Bevacizumab solution prefilled syringe 1.25 mg Indications: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 (HCC)1.25 mgIZOnce PRN Wmatwmtqq70/21/199004/Ended Bevacizumab solution prefilled syringe 1.25 mg Indications: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 (HCC)1.25 mgIZOnce PRN Ejuzqtylq87/01/14826510/01/2024Ended Active Problems ProblemNoted DateDiagnosed DateModerate 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 2 diabetes knuzzysn70/01/2025 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 diabetes mqhoualw14/08/2025Diabetes mellitus type 2 with wtxqzadzxxmgx24/25/2025 Assessment & Plan (02/22/2025 6:43 PM EDT): HTN, Retinopathy, nephropathy Bilateral posterior capsular ktsddajepdbjz76/08/2025Type 2 diabetes mellitus without complication, without long-term current use of gjdtrox1810/20/2024 Assessment & Plan (04/25/2025 4:36 PM EDT): Check blood sugars daily, notify if <70 or >200. Take medications (pills or insulin) as directed. Monitor for s/s of hypoglycemia (sweaty, dizziness, nausea, vomiting, or shakiness). Watch for increase in thirst, urination, or appetite. Inspect feet frequently monitoring for open wounds , andalso recommend yearly eye exam. Pt should attempt to remain as physically active as chronic conditions allow, as well as trying to follow a diet low in carbohydrates, and simple sugars. Current meds: asa, fish oil, MCKNIGHT, statin, arb, metformin A1c: 7.5% 02/22/25 6.7% on 10/07/24 Recommend trying to move MCKNIGHT to dinner time with largest meal of day Assessment & Plan (02/22/2025 6:06 PM EDT): Check blood sugars daily, notify if <70 or >200. Take medications (pills or insulin) as directed. Monitor for s/s of hypoglycemia (sweaty, dizziness, nausea, vomiting, or shakiness). Watch for increase in thirst, urination, or appetite. Inspect feet frequently monitoring for open wounds , andalso recommend yearly eye exam. Pt should attempt to remain as physically active as chronic conditions allow, as well as trying to follow a diet low in carbohydrates, and simple sugars. Current meds: asa, fish oil, MCKNIGHT, statin, arb, metformin A1c: 7.5% 02/22/25 6.7% on 10/07/24 Assessment & Plan (10/20/2024 4:10 PM EST): Currently taking Metformin 500mg BID Glimepiride 2mg [...] persistent hypoglycemia/hyperglycemia on home glucose monitoring noted. CKD stage 3b, GFR 30-44 ml/min10/20/2024 Assessment & Plan (04/25/2025 4:35 PM EDT): Reviewed US Farxiga has now normalized the Cr and GFR Assessment & Plan (02/22/2025 6:43 PM EDT): Will see if can get SGLT 2 or possible GLP 1 med Check US check other labs for kidneys Assessment & Plan (10/20/2024 4:09 PM EST): Kidney function has decreased in past year to 45- will discontinue metformin and trial Farxiga at 10mg. Re-evaluate in 6 weeks. Recheck CMP in 6 weeks Cystoid macular edema of both eyes08/05/2024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 diabetes jaqjvtjn71/06/2024 Assessment & Plan (02/22/2025 7:30 AM EDT): Continue w opth. Recommend good diabetes control Age-related nuclear cataract of both eyes11/10/2023bnormal stress test 09/09/20232744Zojkkdxuoutxum11/10/2024oronary artery disease involving andreafski coronary artery of andreafski heart without angina khtepkpr56/03/2024 Assessment & Plan (04/25/2025 7:02 AM EDT): Statin, asa, arb, b evin Reviewed cardiology notes from Assessment & Plan (02/22/2025 7:32 AM EDT): Statin, asa, arb, b evin Assessment & Plan (03/02/2024 3:07 PM EDT): Stable CAD. Medically treated. On ASA, BB, statin. No CP, SOB. Assessment & Plan (09/02/2023 4:24 PM EST): Stable CAD. Medically treated. On ASA, BB, statin. No CP, SOB. Primary hpuqshchkcav94/03/2024 Assessment & Plan (04/25/2025 7:00 AM EDT): Please check blood pressure daily and record DASH diet Limit caffeine Take medication as directed Contact office if chest pain, pressure, dizziness, shortness of breath, swelling legs Recommend slow position changes Current meds: b evin, and arb Assessment & Plan (02/22/2025 7:32 AM EDT): Please check blood pressure daily and record DASH diet Limit caffeine Take medication as directed Contact office if chest pain, pressure, dizziness, shortness of breath, swelling legs Recommend slow position changes Current meds: b evin, and arb Assessment & Plan (10/20/2024 3:52 PM EST): Currently taking Metoprolol and Valsartan Does not check BP at home; Denies orthostatic changes, dizziness, cough, shortness of breath, swelling in extremities. Continue current regimen. Given BP log, advised pt to record BP and bring log back with them to next visit. Assessment & Plan (07/13/2024 4:20 PM EST): Currently taking Metoprolol and Valsartan Does not check BP at home; BP at goal today in office. Denies orthostatic changes, dizziness, cough, shortness of breath, swelling in extremities. Continue current regimen. Given BP log, advised pt to record BP and bring log back with them to next visit. Assessment & Plan (03/02/2024 3:04 PM EDT): BP well controlled. On average less than 130/90. Tolerating Anti hypertensive w/o adverse effects. C/w toprol and valsartan Assessment & Plan (12/02/2023 3:58 PM EDT): BP well controlled. On average less than 130/90. Tolerating Anti hypertensive w/o adverse effects. Denies lightheadedness, dizziness, syncope, presyncope. Patient encouraged to continue with home BP monitoring and call office if he experiences orthostatic symptoms or persistently elevated BP. C/w toprol and valsartan Assessment & Plan (09/02/2023 4:23 PM EST): BP well controlled. On average less than 130/90. Tolerating Anti hypertensive w/o adverse effects. Denies lightheadedness, dizziness, syncope, presyncope. Patient encouraged to continue with home BP monitoring and call office if he experiences orthostatic symptoms or persistently elevated BP. C/w Lopressor, Valsartan Encounter for screening for malignant neoplasm of colon09/02/2023 Assessment & Plan (09/02/2023 4:24 PM EST): Ordered Cologuard for the patient. Irregular heart rate08/28/2023Type 2 diabetes mellitus with hyperglycemia 08/28/20239711Ufrpxdlccyro40/29/2023 Assessment & Plan (02/22/2025 7:31 AM EDT): On statin and fish oil Check labs yearly and prn dose changes Assessment & Plan (10/20/2024 3:56 PM EST): Currently taking Rosuvastatin Denies any myalgias. Will add Fish oil 2g BID for hypertriglyceridemia Assessment & Plan (07/13/2024 4:20 PM EST): Currently taking Rosuvastatin Denies any myalgias. Continue current regimen. Assessment & Plan (03/02/2024 3:07 PM EDT): On Crestor. Lipid panel at goal 10/24 Assessment & Plan (09/02/2023 4:24 PM EST): On Crestor. Check lipid panel. Resolved Problems ProblemNoted DateDiagnosed DateResolved DateModerate 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 2 diabetes nyylkhyq21/21//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 diabetes szettzpv38/21/2025 02/22/2025Moderate nonproliferative diabetic retinopathy of both eyes without macular edema associated with type 2 diabetes jgatisjt36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 edema, without long-term current use of insulin / Assessment & Plan (07/13/2024 4:21 PM EST): Currently taking Glimepiride and Metformin. Most recent [...] persistent hypoglycemia/hyperglycemia on home glucose monitoring noted. Assessment & Plan (03/02/2024 3:05 PM EDT): A1C 6.9, on glimepiride and metformin. Reports FSBS are at goal - range from 100-140 No hypoglycemia C/w same. Assessment & Plan (12/02/2023 4:01 PM EDT): Was previously on Metformin and Glipizide. Stopped using Glipizide because of GI intolerance. Switched to glimepiride. Using it w/o adverse effects. Could not use Januvia due to cost C/w metformin, glimepiride Reports FSBS are at goal - range from 100-140 No hypoglycemia Check A1C before next apt. Patient requesting freestyle fabian as its difficult for him to check his blood glucose due to pain. Assessment & Plan (10/29/2023 9:13 AM EST): Was previously on Metformin and Glipizide. Stopped using Glipizide because of GI intolerance. Reports FSBS at goal. No hypoglycemia. A1C 7.9 - above goal. C/w metformin. Added Januvia as A1C above goal, already on metformin and can't tolerate glipizide. Assessment & Plan (09/02/2023 4:24 PM EST): Was previously on Metformin and Glipizide. Stopped using Glipizide because of GI intolerance. Reports FSBS at goal. No hypoglycemia. Check A1C, urine albumin/creatinine. Blood glucose / Encounters DateTypeDepartmentCare UyopClewooxzsoa32/01/2025 2:00 PM ESTOffice Visit [facility] [address] [place] [address] Rashad Solis, DO 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 (HCC) (Primary Dx)5Bamboo flowsheet [facility] [address] [place] [phone] Rashad Solis, DO 07/31/20253870Lyahcd48/21/2025 8:45 AM ESTClinical Support [facility] [address] [place] [address] Rashad Solis, DO Retinal Injection; Diabetic Cxkukfvunnl29/21/2025Bamboo flowsheet [facility] [address] [place] [address] Rashad Solis, DO 07/21/20253614Xkbzgb10/01/2025 8:15 AM EDTClinical Support [facility] [address] [place] [phone] Rashad Solis, DO Retinal Injection; Follow-up; Diabetic Kydulqphtsr58/01/2025amboo flowsheet [facility] [address] [place] [address] Rashad Solis, DO 05/31/20259504Qinbxn50/26/2025 10:45 AM EDTClinical Support [facility] [address] [place] [phone] Rashad Solis, DO Retinal Fwutzatho63/26/2025amboo flowsheet [facility] [address] [place] [phone] Rashad Solis, DO 05/26/2025Travelfrom Last 3 Months Family History Medical HistoryRelationNameCommentsCataractsFatherDiabetesMotherHypertension MotherRelationNameStatusCommentsFatherMother Social History Tobacco UseTypesPacks/DayYears UsedDateSmoking Tobacco: FormerCigarettesPassive Smoke Exposure: PastSmokeless Tobacco: Never Tobacco Cessation:Counseling Given: No Alcohol UseStandard Drinks/WeekCommentsNever0 (1 standard drink = 0.6 oz pure alcohol)PHQ-2AnswerDate RecordedPatient Health Questionnaire-2 Kbopp011 Sex and Gender InformationValueDate RecordedSex Assigned at BirthNot on file Legal RdsYrob2212/29/2022 8:34 PM EDTGender IdentityNot on fileSexual Orientation Not on file Last Filed Vital Signs Vital SignReadingTime TakenCommentsBlood Qazgmvvs844/8008 4:01 PM EDT Kqyzo684704/25/2025 4:01 PM JOFJdlnenzzwaa92.6 ??C (97.8 ??F)04/25/2025 4:01 PM EDTRespiratory Ftza897204/25/2025 4:01 PM EDTOxygen Msfjkhjgsh89%04/25/2025 4:01 PM EDTInhaled Oxygen Concentration--Ixbjja70.4 kg (201 lb 9.6 oz)04/25/2025 4:01 PM EQDZnfouf677.6 cm (5' 4 )10/20/2024 3:37 PM ESTBody Mass Index34.6010/20/2024 3:37 PM EST Plan of Treatment DateTypeDepartmentCare Team (Latest Contact Info)Ltowwqdjocu61/16/2026 8:45 AM ESTClinical Support [facility] [address] [place] [phone] Rashad Solis DO [address] [place] [address] Procedures Procedure NamePriorityDate/TimeAssociated DiagnosisCommentsINTRAVITREAL INJECTION, PHARMACOLOGIC AGENT - OD - RIGHT WXDWcflkvm97/01/2025 2:29 PM EST 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 (HCC) INTRAVITREAL INJECTION, PHARMACOLOGIC AGENT - OS - LEFT TWPObeqicy99/21/2025 9:44 AM EST 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 (HCC) OCT, RETINA - OU - BOTH PJLMMyhkcpg35/21/2025 9:40 AM EST 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 (HCC) INTRAVITREAL INJECTION, PHARMACOLOGIC AGENT - OS - LEFT LWRKpgxcwh72/01/2025 8:57 AM EDT 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 (HCC) INTRAVITREAL INJECTION, PHARMACOLOGIC AGENT - OD - RIGHT ZCYIxyydun35/26/2025 11:38 AM EDT 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 (HCC) OCT, RETINA - OU - BOTH HQKVBpalksu76/26/2025 11:35 AM EDT 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 ([facility]) from Last 3 Months Results * Intravitreal Injection, Pharmacologic Agent - [...] 1.25 MG/0.05ML ??Route: Intravitreal, Site: Right Eye ??ND: [address]-7, Lot: [id number], Expiration date: 08/24/2025 Post-op Post injection exam [...] vision or concerns. ?? Authorizing ProviderResult TypeResult StatusElianericagin Solis [facility] PROCEDURESFinal Result * Intravitreal Injection, Pharmacologic Agent - OS - Left Eye (07/21/2025 9:44 AM EST)Anatomical RegionLateralityModalityHeadOther Narrative 07/21/2025 9:44 AM EST Time Out 07/21/2025. 9:44 AM. Confirmed correct patient, procedure, site, and patient consented. Anesthesia Topical anesthesia was used. Anesthetic medications included Lidocaine 2%, Proparacaine 0.5%. Procedure Preparation included 5% betadine to ocular surface, eyelid speculum. Injection: 1.25 mg Bevacizumab 1.25 MG/0.05ML ??Route: Intravitreal, Site: Left Eye ??[facility]: [address]-6, Lot: [id number], Expiration date: 08/24/2025 Post-op Post injection exam [...] decreased vision or concerns. ?? Authorizing ProviderResult TypeResPershing Memorial Hospitalgin Price [facility] PROCEDURESFinal Result * OCT, Retina - OU - Both Eyes (07/21/2025 9:40 AM EST)Anatomical Region LateralityModalityHeadOptical Coherence Tomography Narrative 07/21/2025 9:40 AM EST Right Eye Quality was poor. Scan locations included subfoveal. Progression has been stable. Findings include abnormal foveal contour, epiretinal membrane. Left Eye Quality was good. Scan locations included subfoveal. Progression has been stable. Findings include abnormal foveal contour, epiretinal membrane. Authorizing ProviderResult TypeNorm[facility] TOMOGRAPHY Final Result * Intravitreal Injection, Pharmacologic Agent - OS - Left Eye (05/31/2025 8:57 AM EDT)Anatomical RegionLateralityModalityHeadOther Narrative 05/31/2025 8:57 AM EDT Time Out 05/31/2025. 8:57 AM. Confirmed correct patient, procedure, site, and patient consented. Anesthesia Topical anesthesia was used. Anesthetic medications included Lidocaine 2%, Proparacaine 0.5%. Procedure Preparation included 5% betadine to ocular surface, eyelid speculum. Injection: 1.25 mg Bevacizumab 1.25 MG/0.05ML ??Route: Intravitreal, Site: Left Eye ??[facility]: [id number], Lot: [id number], Expiration date: 07/18/2025 Post-op Post injection exam [...] concerns. ?? Authorizing ProviderResult TypeResult StatusJotelly Solis [facility] PROCEDURESFinal Result * Intravitreal Injection, Pharmacologic Agent - OD - Right Eye (05/26/2025 11:38 AM EDT)Anatomical RegionLateralityModalityHeadOther Narrative 05/26/2025 11:38 AM EDT Time Out 05/26/2025. 11:38 AM. Confirmed correct patient, procedure, site, and patient consented. Anesthesia Topical anesthesia was used. Anesthetic medications included Lidocaine 2%, Proparacaine 0.5%. Procedure Preparation included 5% betadine to ocular surface, eyelid speculum. A 30 gauge needle was used. Injection: 1.25 mg Bevacizumab 1.25 MG/0.05ML ??Route: Intravitreal, Site: Right Eye ??[facility]: [address]-9, Lot: [id number], Expiration date: 07/18/2025 Post-op Post injection exam [...] vision or concerns. ?? Authorizing ProviderResult TypeResult [facility] Centertelly Garciamatt [facility] PROCEDURESFinal Result * OCT, Retina - OU - Both Eyes (05/26/2025 11:35 AM EDT)Anatomical Region LateralityModalityHeadOptical Coherence Tomography Narrative 05/26/2025 11:35 AM EDT Right Eye Quality was good. Scan locations included subfoveal. Progression has improved. Findings include abnormal foveal contour, epiretinal membrane. Left Eye Quality was good. Scan locations included subfoveal. Progression has improved. Findings include abnormal foveal contour, epiretinal membrane. Authorizing ProviderResult TypeResult [facility] CenterRashad Price [facility] TOMOGRAPHY Edited Result - Final from Last 3 Months Insurance Care Teams Team MemberRelationshipSpecialtyStart DateEnd Date Fuentes Wilson MD [address] [place] [address] PCP - GeneralFamily Medicine05/10/24 Aiyana Tucker OD [address] [place] [address] Referring PhysicianOptometry11/11/23 Tanya Arias NP Nurse PractitionerFamily Medicine05/10/24
--- OUTSIDE RECORDS SUMMARY | 2025-08-05 09:05 | XMS_ITS | Clinical Summary ---
Author Organization [facility] Address [address] [place] [address] Care Team Providers Care [employer] Developer Name Role Phone Unavailable Primary Care Provider Unavailabl e Social History Tobacco UseTypesPacks/DayYears UsedDateSmoking Tobacco: Never AssessedUT Safety & EnvironmentAnswerDate RecordedFear of Current or Ex-PartnerNot on file 10/22/2023Emotionally AbusedNot on file10/22/2023hysically AbusedNot on file 10/22/2023Sexually AbusedNot on file10/22/2023hysically or Sexually AbusedNot on file10/22/2023Sex and Gender InformationValueDate RecordedSex Assigned at BirthNot on fileLegal ZkmJsvj1902/27/2022 12:44 AM EDTGender IdentityNot on file Sexual OrientationNot on file Plan of Treatment Not on file
--- OUTSIDE RECORDS SUMMARY | 2025-08-05 09:05 | XMS_ITS | Clinical Summary ---
Author Organization [facility] Address [address] 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 Do not crush or chew. 90 tablet ctive nitroglycerin (Nitrostat) 0.4 mg SL tablet Indications:3-vessel coronary artery diseasePlace 1 tablet (0.4 mg) under the tongue every 5 minutes if needed for chest pain. May repeat dose every 5 minutes for up to 3 doses total. 100 tablet 11010/01/2023ctive glimepiride (Amaryl) 2 mg tablet Take 1 tablet (2 mg) by mouth once daily in the morning. Take before meals. Active valsartan (Diovan) 80 mg tablet Indications:Atherosclerotic heart disease of [place] coronary artery without angina pectorisTake 1 tablet (80 mg) by mouth once daily. 90 tablet ctive rosuvastatin (Crestor) 20 mg tablet Indications:3-vessel coronary artery disease,Hyperlipidemia, unspecified hyperlipidemia typeTake 1 tablet (20 mg) by mouth once daily. 90 tablet 5Active Farxiga 10 mg tablet Take 1 tablet (10 mg) by mouth once daily.Active omega 4-jfs-nav-fish oil (Fish OiL) 1,000 (120-180) mg capsule Take by mouth.Active Active Problems ProblemNoted DateDiagnosed DateBMI 36.0-36.9,adult08/19/20248030Zxnycdn12/20/2024 Never smoked any kybxatslq92/01/40274-yjtizz coronary artery mmhwthl5409/09/2023 Abnormal stress test09/09/2023iabetes /10/2024ardiomyopathy 09/09/20234339Rovtincsrcyzas46/10/2024Elevated LFTs09/09/2023 Family History Medical HistoryRelationNameCommentsDementiaFatherHeart attackMotherRelationName StatusCommentsFatherMother Social History Tobacco UseTypesPacks/DayYears UsedDateSmoking Tobacco: NeverSmokeless Tobacco: NeverAlcohol UseStandard Drinks/WeekCommentsNot Currently0 (1 standard drink = 0.6 oz pure alcohol)Sex and Gender InformationValueDate RecordedSex Assigned at BirthNot on fileLegal AuaMnts44/25/2022 11:13 PM ESTGender IdentityNot on file Sexual OrientationNot on file Last Filed Vital Signs Vital SignReadingTime TakenCommentsBlood Husfhflm282/68004/26/2025 3:35 PM EDT Xexaz2335/11/2025 1:52 PM EDTTemperature--Respiratory Rate--Oxygen Saturation-- Inhaled Oxygen Concentration--Ifjflb46.4 kg (206 lb)04/26/2025 3:35 PM EDTHeight 160 cm (5' 3 )04/26/2025 3:35 PM EDTBody Mass Index36.4908 3:35 PM EDT Plan of Treatment DateTypeDepartmentCare Team (Latest Contact Info)Zpcignmlflm64/06/2026 2:50 PM ESTOffice Visit [facility] [address] [facility] [address] [place] [address] Yohan Sadler MD [address] [place] [address] [place] [address] Health MaintenanceDue DateLast DoneCommentsCT Stxndyhpbyls10/21/1959Colonoscopy 1958Colorectal Cancer Drqbtuhft43/21/1959Diabetes: Hemoglobin A1C 1958Diabetes: Urine Protein Mfmimffaq30/21/1959FIT-DNA (Cologuard) 1958FIT1958Lipid Panel12/19/19588095Ljfjqkgyzeqmm01/21/1959Yearly Adult Pljcxqhp00/21/1959MMR Vaccines (1 of 1 - Standard series)12/20/1959Diabetes: Retinopathy Wjnfxqzkn11/21/1969Hepatitis C Gnczicbbv71/21/1977Pneumococcal Vaccine (1 of 2 - PCV)1977DTaP/Tdap/Td Vaccines (1 - Tdap)1980PSA Prostate Cancer Edkbtrscm51/21/2009RSV High Risk: (Elderly (60+) or Population) (1 - Risk 50-74 years 1-dose series)2008Zoster Vaccines (1 of 2)2008Influenza Vaccine (#1)5COVID-19 Vaccine (1 - 2024- season)2025HIB VaccinesAged OutNo longer eligible based on patient's age to complete this topicHPV VaccinesAged OutNo longer eligible based on patient's age to complete this topicHepatitis A VaccinesAged OutNo longer eligible based on patient's age to complete this topicHepatitis B VaccinesAged OutNo longer eligible based on patient's age to complete this topicIPV VaccinesAged OutNo longer eligible based on patient's age to complete this topicMeningococcal VaccineAged OutNo longer eligible based on patient's age to complete this topic Rotavirus VaccinesAged OutNo longer eligible based on patient's age to complete this topic Insurance MemberSubscriberPlan / Payer (Effective 2018-Present)Name:Eagle Sandoval Relation to Subscriber:SelfName:Eagle Sandoval Payer ID:[id number] (NAIC) Type:Not on file Address: [address] Care Teams Team MemberRelationshipSpecialtyStart DateEnd Date Tanya Arias APRN-TAMEKA PCP - GeneralFamily Axaxjnyd20/20/24
--- OUTSIDE RECORDS SUMMARY | 2025-08-05 09:05 | XMS_ITS | CCD ---
Author Organization [facility] Care Team Providers Care Burr Filer Name Role Phone MD Yohan Villalta Attending Provider MD Angelo Pearce Primary Care Provider Shaikh Pearce Unavailable Unavailable Unavailable Yohan Villalta Referring Unavailable Yohan Villalta Attending Unavailable Yohan Villalta Referring Unavailable Yohan Villalta Attending Unavailable Yohan Villalta Attending Unavailable Yohan Villalta Referring Unavailable FAWWAD, BROWN H Admitting Unavailable FAWWAD, BROWN H Attending Unavailable FAWWAD, BROWN H Consulting Unavailable FAWWAD, BROWN H Primary Care Unavailable VILLALTA, DR YOHAN Vigil Attending Unavailable VILLALTA, DR YOHAN Vigil Consulting Unavailable FAWWAD, BROWN H Primary Care Unavailable VILLALTA, DR YOHAN Vigil Admitting Unavailable FAWWAD, BROWN H Admitting Unavailable FAWWAD, BROWN H Attending Unavailable FAWWAD, BROWN H Consulting Unavailable FAWWAD, BROWN H Primary Care Unavailable VILLALTA, DR YOHAN Vigil Consulting Unavailable VILLALTA, DR YOHAN Vigil Admitting Unavailable FAWWAD, BROWN H Primary Care Unavailable VILLALTA, DR YOHAN Vigil Attending Unavailable FAWWAD, BROWN H Admitting Unavailable ZIEBERDR GARRETT Consulting Unavailable FAWWAD, BROWN H Attending Unavailable FAWWAD, BROWN H Primary Care Unavailable FAWWAD, BROWN H Consulting Unavailable Fawwad, Brown Primary Care Unavailable Yohan Villalta Attending Unavailable Yohan Villalta Admitting Unavailable Fawwad , [facility] Provider Ramses HARP, [facility] Care Provider [phone] Caitlin OD, Aiyana Unavailable Steve HARP, Fuentes [facility] Care Provider Arias SOUND TECHNICIAN, [facility] Unavailable Arias DRY ICE MACHINE OPERATOR-CUPOLA PATCHER HELPER, [facility] Prov ider Arias SOUND TECHNICIAN, [facility] Unavailable Arias DRY ICE MACHINE OPERATOR-CUPOLA PATCHER HELPER, [facility] Prov ider Unavailable YOHAN VILLALTA Referring Unavailable ARIAS, [facility] Unavailabl YOHAN Healy Attending Unavailable YOHAN VILLALTA Referring [facility] Unavail[facility] Sanchez Attending Unavailable YOHAN VILLALTA Referring Unavailable ARIAS, [facility] Unavailsanthosh Wilson MD, Fuentes [facility] Provider Arias SOUND TECHNICIAN, [facility] Unavailable GREGORY LUJAN Attending Unavailable GREGORY LUJAN Attending Unavailable GREGORY LUJAN Attending Unavailable ENRIQUE ARIAS Attending UnavailGREGORY Wu Attending Unavailable GREGORY LUJAN Attending Unavailable GREGORY LUJAN Attending Unavailable GREGORY LUJAN Attending Unavailable MAKAYLA HAIR Referring Unavailable GREGORY LUJAN Attending Unavailable GREGORY LUJAN Attending Unavailable GREGORY LUJAN Attending Unavailable FRANCISCA QUINTANA Attending Unavailable GREGORY LUJAN Attending Unavailable ENRIQUE ARIAS Attending UnavailGREGORY Wu Attending Unavailable GREGORY LUJAN Attending Unavailable GREGORY LUJAN Attending Unavailable FRANCISCA QUINTANA Attending Unavailable GREGORY LUJAN Attending Unavailable GREGORY LUJAN Attending Unavailable Allergies Allergy ClassificationReported Allergen(s)Allergy TypeDate of OnsetReaction(s) Facility (6 sources)glipiZIDE; Translations: [GLIPIZIDE]Drug Tgqpurq48-63-0716[facility] ([facility] sources)glipiZIDEDrug Wywspvc39-48-9329P[facility] Medications Current Medications MedicationDrug Class(es)DatesSig (Normalized)Sig (Original)aspirin 81 mg delayed release oral tablet (20 sources)Platelet Aggregation Inhibitor, Nonsteroidal Anti-inflammatory Drug Start: 04-25-2025 End: 10-64-5887kjptyws 81 MG EC tablet Indications: Type 2 diabetes mellitus without complication, without long-term current use of insulin (HCC) , Type 2 diabetes mellitus with hyperglycemia (HCC) Take 1 tablet (81 mg) by mouth in the morning. 90 tablet 04/25/2025 07/24/2025 ActiveStart: 05-91-1671flvn 81 mg by mouth once dailyAspirin Active 81 MG PO Daily December 24, 2021 4:12pm dapagliflozin 10 mg oral tablet (20 sources)Sodium-Glucose Cotransporter 2 InhibitorStart: 10-20-2024 End: 41-53-5726mtxerameafrsr (Farxiga) 10 MG Indications: CKD stage 3b, GFR 30- 44 ml/min ([facility]) , Type 2 diabetes mellitus without complication, without long-term current use of insulin (HCC) , Type 2 diabetes mellitus with hyperglycemia (HCC) Take 1 tablet (10 mg) by mouth Daily 90 tablet 04/25/2025 07/24/2025 Activedocosahexaenoic acid 120 mg / eicosapentaenoic acid 180 mg oral capsule (20 sources)Start: 10-20-2024 End: 40-50-0008lgdo 1 capsule by mouth at bedtimefish oil concentrate (Galliano-3) 1000 MG capsule Indications: Hyperlipidemia, unspecified hyperlipidemia type Take 2 capsules (2 g) by mouth in the morning and 2 capsules (2 g) before bedtime. 360 capsule 04/25/2025 07/24/2025 Activeglimepiride 2 mg oral tablet (20 sources)SulfonylureaStart: 02-12-2024 End: 61-93-4224chqd 1 tablet by mouth before mealtimeglimepiride (Amaryl) 2 MG tablet Indications: Type 2 diabetes mellitus without complication, without long- term current use of insulin (HCC) Take 1 tablet (2 mg) by mouth in the morning. Take before meals. 90 tablet 04/25/2025 07/24/2025 ActiveglipiZIDE 5 mg oral tablet (8 sources)SulfonylureaStart: 10-24-2021 End: 65-41-3228vjplnEBMR (Glucotrol) 5 mg tablet Take by mouth once daily. 0 10/24/2021 10/01/2023 Discontinued (Therapy completed)ketorolac tromethamine 4 mg/ml ophthalmic solution (20 sources)Nonsteroidal Anti-inflammatory Drug, Cyclooxygenase InhibitorStart: 08-05-2024 End: 09-10-5698dmmevgwrb (Acular) 0.4 % ophthalmic solution Indications: Cystoid macular edema of both eyes , Moderate nonproliferative diabetic retinopathy of both eyes with macular edema associated with type 2 diabetes mellitus (HCC) Administer 1 drop into both eyes in the morning and 1 drop at noon and 1 drop in the evening and 1 drop before bedtime. 5 mL 3 08/15/2024 ActiveStart: 05-24-2024 End: 56-72-0203xelh 1 drop(s) into the eye(s) in the morningketorolac (Acular) 0.5 % ophthalmic solution Indications: Age-related nuclear cataract of both eyes Administer 1 drop into affected eye(s) in the morning and 1 drop before bedtime. 5 mL 1 06/23/2024 07/23/2024 ActivemetFORMIN hydrochloride 500 mg oral tablet (20 sources)BiguanideStart: 12-05-2024 End: 39-53-3706xfvq 1 tablet by mouth in the morningmetFORMIN (Glucophage) 500 MG tablet Indications: Type 2 diabetes mellitus with hyperglycemia (HCC)Take 1 tablet (500 mg) by mouth in the morning and 1 tablet (500 mg) in the evening. Take with meals. 180 tablet 04/25/2025 07/24/2025 ActiveStart: 08-08-2024 End: 78-67-6553cenu 1 tablet by mouth oncemetFORMIN (Glucophage) 500 MG tablet Indications: Type 2 diabetes mellitus with hyperglycemia (CMS/HCC) Take 1 tablet (500 mg) by mouth every 12 (twelve) hours 180 tablet 1 08/08/2024 10/20/2024 Discontinued (Reorder)Start: 48-36-8037zfva 500 mg by mouth twice dailyMetformin Active 500 MG PO Twice daily December 24, 2021 4:12pmStart: 10-24-2021 End: 26-32-0679wndb 1 tablet by mouth every twelve hoursmetFORMIN (Glucophage) 500 mg tablet Take 1 tablet (500 mg) by mouth every 12 hours. 10/24/2021 Active 24 hr metoprolol succinate 50 mg extended release oral tablet (20 sources)beta-Adrenergic BlockerStart: 11-21-2024 End: 19-48-5147hxji 1 tablet by mouth once dailymetoprolol succinate XL (Toprol- XL) 50 MG 24 hr tablet Indications: Irregular heart rate Take 1 tablet (50 mg) by mouth Daily Do not crush or chew. 90 tablet 04/25/2025 ActiveStart: 10-01-2023 End: 58-18-3224rxhf 1 tablet by mouth once dailymetoprolol succinate XL (Toprol- XL) 50 MG 24 hr tablet Indications: Irregular heart rate Take 1 tablet (50 mg) by mouth Daily Do not crush or chew. 90 tablet 11/21/2024 ActiveStart: 96-50-1505grcv 25 mg by mouth twice dailyMetoprolol Tartrate Active 25 MG PO Twice daily December 24, 2021 4:12pmStart: 12-09-2021 End: 85-94-8588qzli 1 tablet by mouth every twelve hoursmetoprolol tartrate (Lopressor) 25 MG tablet Indications: Cardiac arrhythmia, unspecified , Cardiac dysrhythmia TAKE 1 TABLET BY MOUTH EVERY 12 HOURS 180 tablet 0 09/21/2023 Active nitroglycerin 0.4 mg sublingual tablet (20 sources)Nitrate VasodilatorStart: 10-01-2023 End: 67-44-8764pctpkguifnewi (Nitrostat) 0.4 MG SL tablet Indications: Coronary artery disease involving nome coronary artery of nome heart without angina pectoris Place 1 tablet (0.4 mg) under the tongue every5 (five) minutes if needed for chest pain 30 tablet 08/08/2024 08/08/2025 Activeofloxacin 3 mg/ml ophthalmic solution (2 sources)Quinolone AntimicrobialStart: 06-23-2024 End: 46-12-3857krkh 1 drop(s) into the eye(s) five times dailyofloxacin (Ocuflox) 0.3 % ophthalmic solution Indications: Age-related nuclear cataract of both eyes Administer 1 drop into affected eye(s) 5 (five) times a day for 1 day Starting 1 day before surgery, continue after surgery as directed 5 mL 1 06/23/2024 06/24/2024 ActiveStart: 05-24-2024 End: 96-13-8358wcps 1 drop(s) into the eye(s) five times dailyofloxacin (Ocuflox) 0.3 % ophthalmic solution Indications: Age-related nuclear cataract of both eyes Administer 1 drop into affected eye(s) 5 (five) times a day for 1 day Starting 1 day before surgery, continue after surgery as directed 5 mL 1 05/24/2024 05/25/2024 Activeomega 6-xyc-oiy-fish oil (Fish OiL) 1,000 (120-180) mg capsule (2 sources)omega 2-kds-opx-fish oil (Fish OiL) 1,000 (120-180) mg capsule Take by mouth. Activerosuvastatin calcium 20 mg oral tablet (20 sources)HMG-CoA Reductase InhibitorStart: 12-24-2021 End: 97-93-6210swfq 1 tablet by mouth at bedtimerosuvastatin (Crestor) 20 MG tablet Indications: Hyperlipidemia, unspecified hyperlipidemia type Take 1 tablet (20 mg) by mouth at bedtime 90 tablet 1 04/25/2025 07/24/2025 Active SITagliptin 100 mg oral tablet (1 source)Dipeptidyl Peptidase 4 InhibitorStart: 10-07-2023 End: 91-23-8202hbxx 1 tablet by mouth in the morningSITagliptin (Januvia) 100 MG tablet Indications: Type 2 diabetes mellitus without complication, without long-term current use of insulin ([facility]) Take 1 tablet (100 mg) by mouth in the morning. 90 tablet 0 10/07/2023 01/05/2024 Activevalsartan 80 mg oral tablet (20 sources)Angiotensin 2 Receptor BlockerStart: 11-05-2022 End: 92-07-8519xukv 1 tablet by mouth once dailyvalsartan (Diovan) 80 MG tablet Indications: Coronary artery disease involving nome coronary artery of nome heart without angina pectoris Take 1 tablet (80 mg) by mouth Daily 90 tablet Active Completed/Discontinued Medications MedicationDrug Class(es)DatesSig (Normalized)Sig (Original)Bevacizumab solution prefilled syringe 1.25 mg (20 sources)Start: 05-31-2025 End: 98-23-0960Eobaxkybhbh solution prefilled syringe 1.25 mgStart: 05-31-2025 End: 51.25 mg, Intravitreal, Once PRN Procedure, Starting on Thu05/31/25 at 0857, For 1 doseStart: 05-26-2025 End: 44-03-8178Fppkcptrswy solution prefilled syringe 1.25 mgStart: 05-26-2025 End: 51.25 mg, Intravitreal, Once PRN Procedure, Starting on Thu05/26/25 at 1138, For 1 doseStart: 04-14-2025 End: 53-87-1950Dfnkkvpmzig solution prefilled syringe 1.25 mgStart: 04-14-2025 End: 51.25 mg, Intravitreal, Once PRN Procedure, Starting on Thu04/14/25 at 1121, For 1 doseStart: 04-07-2025 End: 90-20-0330Shxglyyevbh solution prefilled syringe 1.25 mgStart: 04-07-2025 End: 51.25 mg, Intravitreal, Once PRN Procedure, Starting on Thu04/07/25 at 1124, For 1 doseStart: 03-07-2025 End: 45-19-3089Kshdzqhhufr solution prefilled syringe 1.25 mgStart: 03-07-2025 End: 51.25 mg, Intravitreal, Once PRN Procedure, Starting on Thu03/07/25 at 1030, For 1 doseStart: 02-21-2025 End: 63-70-3475Zxgtphmjxpp solution prefilled syringe 1.25 mgStart: 02-21-2025 End: 51.25 mg, Intravitreal, Once PRN Procedure, Starting on Thu02/21/25 at 1012, For 1 doseStart: 01-17-2025 End: 84-95-9701Nlwjscdltgc solution prefilled syringe 1.25 mgStart: 01-17-2025 End: 51.25 mg, Intravitreal, Once PRN Procedure, Starting on Thu01/17/25 at 1046, For 1 doseStart: 01-10-2025 End: 10-95-7891Cljmguiyngj solution prefilled syringe 1.25 mgStart: 01-10-2025 End: 51.25 mg, Intravitreal, Once PRN Procedure, Starting on Thu01/10/25 at 0949, For 1 doseStart: 12-13-2024 End: 61-78-6642Pbszmyuwaih solution prefilled syringe 1.25 mgStart: 12-13-2024 End: 51.25 mg, Intravitreal, Once PRN Procedure, Starting on Thu12/13/24 at 0931, For 1 doseStart: 12-06-2024 End: 88-42-9430Edvyyrqsnnt solution prefilled syringe 1.25 mgStart: 12-06-2024 End: 51.25 mg, Intravitreal, Once PRN Procedure, Starting on Thu12/06/24 at 1024, For 1 doseStart: 11-08-2024 End: 77-70-2235Jbfvimylghn solution prefilled syringe 1.25 mgStart: 11-08-2024 End: 51.25 mg, Intravitreal, Once PRN Procedure, Starting on Thu11/08/24 at 1334, For 1 doseStart: 11-02-2024 End: 28-40-8169Suwccwmbzqz solution prefilled syringe 1.25 mgStart: 11-02-2024 End: 51.25 mg, Intravitreal, Once PRN Procedure, Starting on Thu11/02/24 at 0910, For 1 doseStart: 10-11-2024 End: 81-49-9627Oqoclmikmaz solution prefilled syringe 1.25 mgStart: 10-11-2024 End: 51.25 mg, Intravitreal, Once PRN Procedure, Starting on Thu10/11/24 at 0953, For 1 doseStart: 09-27-2024 End: 09-39-9623Pzwhdsclyfq solution prefilled syringe 1.25 mgStart: 09-27-2024 End: .25 mg, Intravitreal, Once PRN Procedure, Starting on Thu09/27/24 at 0832, For 1 doseContinuous Blood Gluc Treasury Specialist (FreeStyle Fabian 2 Holloway) device (7 sources)Start: 12-02-2023 End: 03-64-9359Ewayolxekc Blood Gluc Treasury Specialist (FreeStyle Fabian 2 Holloway) device Indications: Type 2 diabetes mellitus without complication, without long-term current use of insulin ([facility]) 1 each Daily 1 each 12/02/2023 07/13/2024 Discontinued (Med list cleanup)Start: 12-02-2023 End: 64-21-7411Sgttjdwoyd Blood Gluc Treasury Specialist (FreeStyle Fabian 2 Holloway) device Indications: Type 2 diabetes mellitus without complication, without long-term current use of insulin (CMS/HCC) 1 each Daily 1 each 12/02/2023 12/01/2024 ActiveprednisoLONE acetate 10 mg/ml ophthalmic suspension (19 sources)CorticosteroidStart: 08-05-2024 End: 47-83-2531bwyrvwkwLKUY acetate (Pred-Forte) 1 % ophthalmic suspension Indications: Cystoid macular edema of both eyes , Moderate nonproliferative diabetic retinopathy of both eyes with macular edema associatedwith type 2 diabetes mellitus (CMS/HCC) Administer 1 drop into both eyes in the morning and 1 drop at noon and 1 drop in the evening and 1 drop before bedtime. 5 mL 3 08/15/2024 10/20/2024 Discontinued (Discontinued by another clinician)Start: 06-23-2024 End: 63-41-1671rjyiezybSIXI acetate (Pred-Forte) 1 % ophthalmic suspension Indications: Age-related nuclear cataract of both eyes Administer 1 drop into affected eye(s) in the morning and 1 drop at noon and 1 drop in the evening and 1 drop before bedtime. Do all this for 14 days. 5 mL 1 06/23/2024 07/07/2024 ActiveStart: 05-24-2024 End: 82-56-7431dymvrywlPMJQ acetate (Pred-Forte) 1 % ophthalmic suspension Indications: Age-related nuclear cataract of both eyes Administer 1 drop into affected eye(s) in the morning and 1 drop at noon and 1 drop in the evening and 1 drop before bedtime. Do all this for 14 days. 5 mL 1 05/24/2024 06/07/2024 Active Problems Active Problems Problem ClassificationProblemDateDocumented DateEpisodic/Chronic Administrative/social admission (2 sources)Patient encounter status; Translations: [Encounter for blood-alcohol and blood-drug test]49-10-7723WjjwtiidYqwktvp dysrhythmias (20 sources)Paroxysmal ventricular tachycardia; Translations: [Paroxysmal ventricular tachycardia]Onset: 08-28-2023 Resolved: 831770-92-7334TrkqykbPebggwya (20 sources)Bilateral age-related nuclear cataracts; Translations: [Age-related nuclear cataract, bilateral]Onset: 303007-92-6973MuwufgeQqayfiv kidney disease (20 sources)Chronic kidney disease stage 3; Translations: [Chronic kidney disease (CKD) stage G3a/A1, moderately decreased glomerular filtration rate (GFR) between 45-59 mL/min/1.73 square meter and albuminuria creatinine ratio less than 30 mg/g (H* (CMS/HCC)]Onset: 404565-66-4846XevpsynFulckfxs atherosclerosis and other heart disease (20 sources)Triple vessel disease of the heart ; Translations: [Coronary atherosclerosis of unspecified type ofvessel, nome or graft]Onset: 11-21-2022 ChronicComment on above:Cardiac cath November 2021 showed occlusion of the RCA and left circumflex with 50-70% LAD stenosis;Diabetes mellitus with complications (20 sources)Type 2 diabetes mellitus with hyperglycemia; Translations: [Type 2 diabetes mellitus with moderate nonproliferative diabetic retinopathy without macular edema, bilateral]Onset: 06-18-2022 Resolved: 57-68-4937EafbmkiLkcrulxt mellitus without complication (20 sources)Diabetes mellitus; Translations: [Diabetes mellitus without mention of complication, type II or unspecified type, not stated as uncontrolled]Onset: 92-50-1125AjzkkyhSkhyvviiy of lipid metabolism (20 sources)Hyperlipidemia; Translations: [Other and unspecified hyperlipidemia] Onset: 029002-18-8647EtcpizoJmbjuborn hypertension (20 sources)Essential hypertension; Translations: [Essential (primary) hypertension]Onset: 882383-77-1724FgwwtguOeebx circulatory disease (2 sources)History of cardiomyopathy; Translations: [Other postprocedural status]EpisodicOther nutritional; endocrine; and metabolic disorders (6 sources)Obesity; Translations: [Obesity, unspecified]ChronicOther nutritional; endocrine; and metabolic disorders (5 sources)Body mass index 30+ - obesity; Translations: [Body mass index (BMI) 35.0-35.9, adult]Onset: 089726-50-3875SkmocxkZjulo nutritional; endocrine; and metabolic disorders (2 sources)Body mass index (BMI) 36.0-36.9, adult; Translations: [Body mass index (BMI) 36.0-36.9, adult]Onset: 55-78-9079PgwpjqnHglhh nutritional; endocrine; and metabolic disorders (2 sources)Body mass index (BMI) 35.0-35.9, adult; Translations: [Body mass index (BMI) 35.0-35.9, adult]Onset: 69-90-2469SlomnepCxfk-; endo-; and myocarditis; cardiomyopathy (except that caused by tuberculosis or sexually transmitted disease) (20 sources)Cardiomyopathy; Translations: [Other primary cardiomyopathies]Onset: 100028-88-2890BxehzkaWmbxlmrpjq and visceral atherosclerosis (4 sources)Peripheral vascular disease, unspecified; Translations: [PERIPHERAL VASCULAR DISEASE UNS]Onset: 33-52-2895OymkedyJglnmidt codes; unclassified (2 sources)Other specified health status; Translations: [Other specified health status]Onset: 77-34-4621SthvsvyzElxzoei detachments; defects; vascular occlusion; and retinopathy (20 sources)Bilateral cystoid macular edema of retinas; Translations: [Cystoid macular degeneration, bilateral]Onset: 537940-27-3698AoxukufMncomjtux and history of mental health and substance abuse codes (6 sources)Ex-smoker; Translations: [Personal history of tobacco use]Episodic Comment on above:QUIT IN 1999; Past or Other Problems Problem ClassificationProblemDateDocumented DateEpisodic/ChronicDiabetes mellitus without complication (20 sources)Hyperglycemia; Translations: [Hyperglycemia, unspecified]Onset: 08-28-2023 Resolved: 171515-38-2577RqqbnwajQbsmx lower respiratory disease (6 sources)Snoring; Translations: [Snoring]Onset: 043539-20-0616Nbfmxpip Other lower respiratory disease (1 source)Snoring; Translations: [Snoring]Onset: 88-61-8278FnqlnugcIugov screening for suspected conditions (not mental disorders or infectious disease) (20 sources)Cardiovascular stress test abnormal; Translations: [Other nonspecific abnormal results of function study of cardiovascular system]Onset: 933811-08-3509MlzomldpXmjvtemk codes; unclassified (7 sources)Never smoked any substance; Translations: [Other specified health status]Onset: 088463-30-3454HhayriueUdzlapwtqexw (4 sources)Onset: 10-01-2023 Resolved: Results Test NameValueInterpretationReference RangeFacilityLeft eye Ophthalmologic treatmenton 77-75-1648DLBY HealthcareRadiology Study observation (narrative)[facility] HealthcareIntravitreal Injection, Pharmacologic Agent - OD - Right Eyeon 13-80-1963XFPB HealthcareRadiology Study observation (narrative)[facility] Healthcare Optical coherence tomography study reporton 45-99-9144KPMKSaint [facility] HealthcareRadiology Study observation (narrative)[facility] HealthcareTRANSTHORACIC ECHO (TTE) COMPLETEon 06-08-1649GCOKXKNDPIMXN ECHO (TTE) [address], [address] [place] [address] TRANSTHORACIC ECHOCARDIOGRAM REPORT Patient Name: GIAN Connor Physician: [id number] Yohan Villalta MD, [facility] Study Date: 04/26/2025 Ordering Provider: [id number] YOHAN VILLALTA MRN/PID: [id number] Fellow: Nurse: Date of /Age: 412/19/1960 Bulldozer Engineer: Salina Diaz RDCS years Gender Assigned at M Additional Staff: : Height: 160.02 cm Admit Date: Weight: 93.44 kg Admission Status: Outpatient BSA / BMI: 1.96 m2 / 36.49 Department Location: [facility] Heart kg/m2 [place] Blood Pressure: 112 /68 mmHg Study Type: TRANSTHORACIC ECHO (TTE) COMPLETE Diagnosis/ICD: Atherosclerotic heart disease of nome coronary artery without angina pectoris-I25.10; Cardiomyopathy, unspecified-I42.9 Indication: HLD, DM, Obesity CPT Codes: Echo Complete w Full Doppler-51922 Study Detail: The following Echo studies were performed: 2D, M-Mode, Doppler and color flow. PHYSICIAN INTERPRETATION: Left Ventricle: Left ventricular ejection fraction is normal by visual estimate at 55%. There is mild concentric left ventricular hypertrophy. There are no regional wall motion abnormalities. The left ventricular cavity size is normal. There is mild increased septal and mildly increased posterior left ventricular wall thickness. Spectral Doppler shows a Grade I (impaired relaxation pattern) of left ventricular diastolic filling with normal left atrial filling pressure. Mild concentric left ventricle hypertrophy. Left Atrium: The left atrial size is mild to moderately dilated. Right Ventricle: The right ventricle is normal in size. There is normal right ventricular global systolic function. Right Atrium: The right atrial size is normal. Aortic Valve: The aortic valve is trileaflet. The aortic valve area by VTI is 2.65 cm?? with a peakvelocity of 1.51 m/s. The peak and mean gradients are 8 mmHg and 4 mmHg, respectively, with a dimensionless index of 0.72. There is no evidence of aortic valve regurgitation. Mitral Valve: The mitral valve is mildly thickened. The doppler estimated peak and mean diastolic gradients are 5 mmHg and 2 mmHg, respectively. There is no evidence of mitral valve regurgitation. The E Vmax is 0.83 m/s. Tricuspid Valve: The tricuspid valve is structurally normal. There is trace tricuspid regurgitation. Pulmonic Valve: The pulmonic valve is structurally normal. There is no indication of pulmonic valveregurgitation. Pericardium: Small pericardial effusion. The pericardial effusion is hemodynamically insignificant , maximal thickness inferiorly 1.8 cm. Aorta: The aortic root is normal. Systemic Veins: The inferior vena cava appears normal in size, with IVC inspiratory collapse greater than 50%. In comparison to the previous echocardiogram(s): When compared to study from 2021, the ejection fraction has improved from 40% up to 55%, the precordial effusion is unchanged. CONCLUSIONS: 1. Left ventricular ejection fraction is normal by visual estimate at 55%. 2. Spectral Doppler shows a Grade I (impaired relaxation pattern) of left ventricular diastolic filling with normal left atrial filling pressure. 3. Mild concentric left ventricle hypertrophy. 4. There is normal right ventricular global systolic function. 5. The left atrial size is mild to moderately dilated. 6. Small pericardial effusion. 7. The pericardial effusion is hemodynamically insignificant , maximal thickness inferiorly 1.8 cm. 8. When compared to study from 2021, the ejection fraction has improved from 40% up to 55%, the precordial effusion is unchanged. QUANTITATIVE DATA SUMMARY: 2D MEASUREMENTS: Normal Ranges: Ao Root s: 3.60 cm LAs: 5.16 cm (2.7-4.0cm) RVIDd: 3.34 cm (0.9-3.6cm) IVSd: 1.44 cm (0.6-1.1cm) LVPWd: 1.07 cm (0.6-1.1cm) LVIDd: 4.95 cm (3.9-5.9cm) LVIDs: 4.31 cm LV Mass Index: 125.6 g/m2 LVEDV Index: 63.09 ml/m2 LV % FS 12.9 % LEFT ATRIUM: Normal Ranges: LA Vol A4C: 47.0 ml (22+/-6mL/m2) LA Vol A2C: 65.0 ml LA Vol BP: 56.3 ml LA Vol Index A4C: 24.0ml/m2 LA Vol Index A2C: 33.2 ml/m2 LA Vol Index BP: 28.8 ml/m2 LA Vol A4C: 44.3 ml LA Vol A2C: 62.1 ml LA Vol Index BSA: 27.2 ml/m2 LV SYSTOLIC FUNCTION: Normal Ranges: EF-A4C View: 55 % (>=55%) EF-A2C View: 54 % EF-Biplane: 54 % EF-Visual: 55 % LV EF Reported: 55 % LV DIASTOLIC FUNCTION: Normal Ranges: MV Peak E: 0.83 m/s (0.7-1.2 m/s) MV Peak A: 0.98 m/s (0.42-0.7 m/s) E/A Ratio: 0.85 (1.0-2.2) MV e' 0.063 m/s (>8.0) MV lateral e' 0.08 m/s MV medial e' 0.05 m/s E/e' Ratio: 13.29 (<8.0) MITRAL VALVE: Normal Ranges: MV Vmax: 1.06 m/s (<=1.3m/s) MV peak P.5 mmHg (<5mmHg) MV mean P.8 mmHg (<48mmHg) MV VTI: 31.35 cm (10-13cm) MV DT: 223 msec (150-240msec) AORTIC VALVE: Normal Ranges: AoV Vmax: 1.51 m/s (<=1.7m/s) AoV Peak P.1 mmHg (<20mmHg) AoV Mean P.9 mmHg ( (more content not included)...[facility] UA (CLEAN/CATCH) MICROSCOPIC IF INDICATEon 04-24-2025 BILIRUBIN URINENegativeNEGATIVENOMS HealthcareBLOOD URINENegativeNEGATIVENOMS HealthcareClarity (U)CLEARCLEARNOMS HealthcareColor (U)LT. YELLOWYELLOWNONC HealthcareGLUCOSE URINE UA>=1000AbnormalNEGATIVE mg/dLNONC Healthcare Interpretation and review of laboratory resultsAbnormalNOMS HealthcareKetones Ql (U)TRACEAbnormalNEGATIVE mg/dLNONC HealthcareLeukocyte esterase Test strip Ql (U)NegativeNEGATIVENOMS HealthcareNITRITE URINENegativeNEGATIVENOMS HealthcarepH (U)6.0 [pH]5.0 - 9.0NOMS HealthcareProtein (U) [Mass/Vol]30 mg/dLAbnormal NEG/TRACENOMS HealthcareSPECIFIC GRAVITY URINE1.0151.005 - 1.025NOMS Healthcare URINE MICROSCOPIC INDICATEDYESNOMS HealthcareUROBILINOGEN URINE1.0 EU/dL0.2 - 1.0 EU/dLNOMS HealthcareCLINISYNCNOMS HealthcareALL CBC WITH AUTO DIFFon 68-09-5667HYLNRABYV ABSOLUTE BTWQ8BGXC HealthcareBasophils/100 WBC (Bld)0.5 %0.2 - 2.0 %NOMS HealthcareEosinophils/100 WBC (Bld)3.7 %0.9 - 7.0 %[facility] Erythrocyte distribution width (RBC) [Ratio]13.1 %11.0 - 15.0 %[facility] Hematocrit (Bld) [Volume fraction]43.1 %42.0 - 54.0 %[facility] InstituteHemoglobin (Bld) [Mass/Vol]14.3 g/dL14.0 - 18.0 g/dLThe Rehabilitation InstituteIMMATURE GRANULOCYTES ABS AUTO0.02NOChristian HospitalImmature granulocytes/100 WBC (Bld)0.3 %0.0 - 0.5 % [facility] InstituteLYMPHOCYTES ABSOLUTE AUTO1.6NONC HealthcareLymphocytes/100 WBC (Bld)20.9 %20.5 - 60.0 %[facility] InstituteMCH (RBC) [Entitic mass]29.1 pg25.9 - 34.0 pgNOChristian HospitalMCHC (RBC) [Mass/Vol]33.2 g/dL29.9 - 35.2 g/dLThe Rehabilitation InstituteMCV (RBC) [Entitic vol]87.6 fL80.0 - 94.0 fLThe Rehabilitation InstituteMONOCYTES ABSOLUTE AUTO0.5NOMS HealthcareMonocytes/100 WBC (Bld)6.7 %1.7 - 12.0 %[facility] InstituteNEUTROPHILS ABSOLUTE AUTO5.1NOMS HealthcareNeutrophils/100 WBC (Bld) 67.9 %43.0 - 75.0 %[facility] InstitutePlatelet mean volume (Bld) [Entitic vol]11.6 fL9.5 - 13.5 fLNONC HealthcareTBH EO #0.3NOMS HealthcareTBH [id number] HealthcareTB RBC4.92NOChristian HospitalTB WBC7.6NONC HealthcareCLINISYNCNOMS Uk HealthcareLe eye Ophthalmologic treatmenton 48-19-3963HYMX HealthcareRadiology Study observation (narrative)[facility] InstituteIntravitreal Injection, Pharmacologic Agent - OD - Right Eyeon 57-52-9038KONY HealthcareRadiology Study observation (narrative)[facility] InstituteOptical coherence tomography study report on 08-57-4988TMECSaint Luke's Health System HealthcareRadiology Study observation (narrative)[facility] InstituteUS RENAL BIon 87-77-1979Eon[address] [place] [address] Ultrasound Report Signed Patient: GIAN SANDOVAL MR#: [id number] : 1960 Acct:[id number] Age/Sex: 64 / M ADM Date: 03/15/25 Loc: US Attending Dr: Francisca Quintana NP Ordering Physician: Francisca Quintana NP Date of Service: 03/15/25 Procedure(s): US renal BI Accession Number(s): [id number] cc: Francisca Quintana NP [address] [place] [address] Patient Name: GIAN SANDOVAL MRN: [id number] date: 1960 Sex: M Assigned Patient Location: US Current Patient Location: Accession/Order Number: [id number] Exam Date: 03/16/2025 08:16 Report Date: 03/16/2025 [...] Patino M.D. 03/16/2025 8:18 AM Dictation Location: [place] [address] Electronically authenticated by: [id number] Y Date: 03/16/2025 08:18 Dictated By: Maryam Patino M.D. Signed By: 03/16/25819 DD/ 7 TD/TT: Shipping Clerk:SAMMIadiology, Radiologist, - 03/16/2025 [facility] [place] [id number] Ultrasound Report Signed Patient: GIAN SANDOVAL MR#: [id number] : 1960 Acct:[id number] Age/Sex: 64 / M ADM Date: 03/15/25 Loc: US Attending Dr: Francisca Quintana NP Ordering Physician: Francisca Quintana NP Date of Service: 03/15/25 Procedure(s): US renal BI Accession Number(s): [id number] cc: Francisca Quintana NP [place] [id number] Patient Name: GIAN SANDOVAL MRN: [id number] date: 1960 Sex: M Assigned Patient Location: US Current Patient Location: Accession/Order Number: [id number] Exam Date: 03/16/2025 08:16 Report Date: 03/16/2025 [...] Patino M.D. 03/16/2025 8:18 AM Dictation Location: [place] [address] Electronically authenticated by: [id number] Y Date: 03/16/2025 08:18 Dictated By: Maryam Patino M.D. Signed By: 03/16/25819 DD/ 7 TD/TT: Shipping Clerk: BLAYNE HealthcareRadiology Study observation (narrative)NOMS HealthcareUS RENAL BI Ordered By: Radiologist Radiology on 21-65-6539PTQC Healthcare Work Phone: Le eye Ophthalmologic treatmenton 91-55-4494VYFZ HealthcareRadiology Study observation (narrative)NOMS RlgjhgqbwsFtA9g (Bld) [Mass fraction]on 25-42-1042Vsynxtulnmiobl and review of laboratory results AbnormalNOSaint Francis Hospital & [facility] HealthcareLaboratory - Hematology and Cell countson 74-87-4808CqP1z (Bld) [Mass fraction]7.5 %[facility] HealthcareIntravitreal Injection, Pharmacologic Agent - OD - Right Eyeon 42-45-5284MCIC HealthcareRadiology Study observation (narrative)[facility] InstituteOptical coherence tomography study report on 71-19-0131CMQUAtrium Health KannapolisRadiology Study observation (narrative)[facility] HealthcareALL BASIC METABOLIC PANELon 40-63-5326Lciyv gap [Moles/Vol]12.1 mmol/LNOMS HealthcareCalcium [Mass/Vol]9.1 mg/dL8.5 - 10.1 mg/dL NOM HealthcareChloride [Moles/Vol]105 mmol/L98 - 107 mmol/LNOMS HealthcareCO2 [Moles/Vol]28.2 mmol/L21.0 - 32.0 mmol/LNOMS HealthcareCreatinine [Mass/Vol]1.82 mg/dLHigh0.70 - 1.30 mg/dLNONC HealthcareGFR/1.73 sq M.predicted CKD-EPI (S/P/Bld) [Vol rate/Area]45Low>=60 mL/min/1.73m 2NOMS HealthcareGlucose [Mass/Vol]82 mg/dL74 - 106 mg/dLUTAH VALLEY [facility]OS[facility]ITAL HealthcareInterpretation and review of laboratory resultsAbnormalUTAH VALLEY HOSPITAL HealthcarePotassium [Moles/Vol]4.3 mmol/L3.5 - 5.1 mmol/LNOMS HealthcareSodium [Moles/Vol]141 mmol/L136 - 145 mmol/LNOMS HealthcareTBH EGFR-NON AF STYIEHKF95Zol>=60 mL/min/1.73m 2NOMS HealthcareUrea nitrogen [Mass/Vol]34 mg/dLHigh7.0 - 18.0 mg/dLNONC HealthcareUrea nitrogen/Creatinine [Mass ratio]18.7 mg/mgNONC HealthcareCLINISYNCNGolden Valley Memorial HospitalLe eye Ophthalmologic treatmenton 74-64-4547UDGSThe Rehabilitation InstituteRadiology Study observation (narrative)[facility] HealthcareIntravitreal Injection, Pharmacologic Agent - OD - Right Eyeon 38-70-4420UUUX HealthcareRadiology Study observation (narrative)[facility] HealthcareOptical coherence tomography study report on 89-76-4681VBZUAtrium Health KannapolisRadiology Study observation (narrative)[facility] InstituteLeft eye Ophthalmologic treatmenton 05-07-0141FUGYThe Rehabilitation InstituteRadiology Study observation (narrative)NOMS HealthcareIntravitreal Injection, Pharmacologic Agent - OD - Right Eyeon 84-09-5358ZTQMThe [facility] Radiology Study observation (narrative)NOMMadison Medical CenterOptical coherence tomography study reporton 95-84-7959QMIWAtrium Health KannapolisRadiology Study observation (narrative)NOMS [facility] eye Ophthalmologic treatmenton 40-66-8427SPQBThe Rehabilitation InstituteRadiology Study observation (narrative)NOMMadison Medical Center Intravitreal Injection, Pharmacologic Agent - OD - Right Eyeon 96-12-5823GKOHThe Rehabilitation InstituteRadiology Study observation (narrative)[facility] InstituteOptical coherence tomography study reporton 29-66-3655GUELAtrium Health Kannapolis Radiology Study observation (narrative)[facility] eye Ophthalmologic treatmenton 98-81-6021WYCVThe Rehabilitation InstituteRadiology Study observation (narrative)[facility] HealthcareALL CBC WITH AUTO DIFFon 08-74-7054JREKTYIVV ABSOLUTE ODZX8DZQAThe Rehabilitation InstituteBasophils/100 WBC (Bld)0.3 %0.2 - 2.0 %NOMMadison Medical CenterEosinophils/100 WBC (Bld)2.7 %0.9 - 7.0 %The [facility] InstituteErythrocyte distribution width (RBC) [Ratio]12.9 %11.0 - 15.0 %NOMMadison Medical CenterHematocrit (Bld) [Volume fraction]45.4 %42.0 - 54.0 %[facility] InstituteHemoglobin (Bld) [Mass/Vol]14.7 g/dL14.0 - 18.0 g/dLThe Rehabilitation InstituteIMMATURE GRANULOCYTES ABS AUTO0.02NOChristian HospitalImmature granulocytes/100 WBC (Bld)0.2 %0.0 - 0.5 %[facility] HealthcareInterpretation and review of laboratory resultsAbnormalThe Rehabilitation InstituteLYMPHOCYTES ABSOLUTE AUTO1.6 NOMMadison Medical CenterLymphocytes/100 WBC (Bld)18.8 %Low20.5 - 60.0 %[facility] CenterH (RBC) [Entitic mass]28.1 pg25.9 - 34.[address]NOMosaic [address] Care [address] JosephHC (RBC) [Mass/Vol] 32.4 g/dL29.9 - 35.2 g/dLThe Rehabilitation InstituteMCV (RBC) [Entitic vol]86.6 fL80.0 - 94.0 fLThe Rehabilitation InstituteMONOCYTES ABSOLUTE AUTO0.6NOChristian HospitalMonocytes/100 WBC (Bld)6.4 %1.7 - 12.0 %[facility] InstituteNEUTROPHILS ABSOLUTE AUTO6.2NGolden Valley Memorial Hospital Neutrophils/100 WBC (Bld)71.6 %43.0 - 75.0 %[facility] InstitutePlatelet mean volume (Bld) [Entitic vol]11.6 fL9.5 - 13.5 fLThe Rehabilitation InstituteTB EO #0.2NOMS [facility] TBH [id number] Walnut Lawn RBC5.24NOChristian HospitalTB WBC8.6NOChristian Hospital CLINISYNCThe Rehabilitation InstituteIntravitreal Injection, Pharmacologic Agent - OD - Right Eyeon 54-38-1399GARYThe Rehabilitation InstituteRadiology Study observation (narrative)[facility] InstituteOptical coherence tomography study reporton 51-35-5238PHZGCrawley Memorial HospitalRadiology Study observation (narrative)[facility] InstituteOptical coherence tomography study reporton 80-36-9134BCVDAtrium Health Kannapolis Radiology Study observation (narrative)[facility] InstituteOptical coherence tomography study reporton 79-54-3752QSPHThe Rehabilitation InstituteRight Eye Quality was poor. Left Eye Quality was poor.[facility] Health KannapolisOptical coherence tomography study reporton 88-92-4608Dohzwrdld Study observation (narrative)[facility] US Eye+Orbit - bilateralon 28-30-9996Ghhodsyib: Cataract both eyes (OU) Testing Indication: Performed for preop measurements in the determination of an intraocular lens (IOL) for both eyes (OU) Test Reliability: Good quality both eyes (OU) Interpretation: Good measurements for intraocular lens (IOL) calculation purposes. Calculation made for both eyes (OU).[facility] Radiology Study observation (narrative)[facility] MICROALB CREAT RATIO RANDOMon 37-35-1000OCYWEOMGNR URINE FOGSZM184.39 mg/dL20.00 - 300.00 mg/dLUTAH VALLEY [facility]OS[facility]ITAL HealthcareInterpretation and review of laboratory resultsAbnormRoxborough Memorial Hospital MICROALBUM CREATININE RATIO UR38.5 mg/gHigh0.0 - 29.9 mg/gNOMS HealthcareComment on above:NO MICROALBUMINURIA 0-29 MG/G CLINICAL MICROALBUMINURIA 30-300 MG/G MACROALBUMINURIA >300 MG/G MICROALBUMIN URINE RANDOM5.6 mg/dLNINF - 30.0 mg/dLNOMS HealthcareCLINISYNCNOMS HealthcareSGOTon 46-17-1686CBR [Catalytic activity/Vol]23 U/NWebscs11-80Vsu [facility] HospitalComment on above:Performed By: #### ALT, AST #### [facility] [address] [place] [address] Dr. Jeremías Mendes 37-15-0876UZY [Catalytic activity/Vol]46 U/AKszssk22-65Hhi [facility] HospitalComment on above:Performed By: #### ALT, AST #### [facility] [address] [place] [address] Dr. Jeremías Ruth AUTO DIFFon 97-04-0705MIWY #0.0 103/ulNormal0.0-0.1The [facility] HospitalComment on above:Performed By: #### CBC #### [facility] [address] [place] [address] Dr. Jeremías GaffneyBasophils/100 WBC (Bld)0.5 %Normal0.2-2.0[facility] Comment on above:Performed By: #### CBC #### [facility] [address] [place] [address] Dr. Jeremías Toro #0.3 103/ulNormal0.0-0.7The [facility] HospitalComment on above: Performed By: #### CBC #### [facility] [address] [place] [address] Dr. Jeremías Loweosinophils/100 WBC (Bld)3.2 %Normal0.9-7.0The [facility] Comment on above:Performed By: #### CBC #### [facility] [address] [place] [address] Dr. Jeremías Lowerythrocyte distribution width (RBC) [Ratio]12.6 %Zvpdrw85.0-15.0 The [facility] HospitalComment on above:Performed By: #### CBC #### [facility] [address] [place] [address] [address] Jeremías GaffneyHematocrit (Bld) [Volume fraction]44.5 %Hxqoja88.0-54.0The [facility] HospitalComment on above:Performed By: #### CBC #### [facility] [address] [place] [address] Dr. Jeremías GaffneyHemoglobin (Bld) [Mass/Vol]14.4 g/mXDcdttv56.0-18.0The [facility] HospitalComment on above:Performed By: #### CBC #### [facility] [address] [place] [address] Dr. Jeremías Andre #0.02 10e3/ulNormal0.00-0.03The [facility] HospitalComment on above:Performed By: #### CBC #### [facility] [address] [place] [address] Dr. Jeremías Andre %0.2 %Normal0.0-0.5The [facility] HospitalComment on above: Performed By: #### CBC #### [facility] [address] [place] [address] Dr. Jeremías Suarez #1.7 103/ulNormal1.2-3.8The [facility] HospitalComment on above:Performed By: #### CBC #### [facility] [address] [place] [address] Dr. Jeremías Ellismphocytes/100 WBC (Bld)19.7 %Critically low20.5-60.0The [facility] HospitalComment on above:Performed By: #### CBC #### [facility] [address] [place] [address] Dr. Jeremías HawthorneUAL DIFF REQNONormalThe [facility] HospitalComment on above: Performed By: #### CBC #### [facility] [address] [place] [address] Dr. Jeremías Kahn (RBC) [Entitic mass]27.7 vyCqhxrp23.9-34.0The [facility] HospitalComment on above:Performed By: #### CBC #### [facility] [address] [place] [address] [address] Jeremías DuranHC (RBC) [Mass/Vol]32.4 g/sZIasokq20.9-35.2The [facility] HospitalComment on above:Performed By: #### CBC #### [facility] [address] [place] [address] Dr. Jeremías DuranV (RBC) [Entitic vol]85.7 nECtodov76.0-94.0The [facility] HospitalComment on above:Performed By: #### CBC #### [facility] [address] [place] [address] Dr. Jeremías Snyder #0.5 103/ulNormal0.3-0.8The [facility] HospitalComment on above:Performed By: #### CBC #### [facility] [address] [place] [address] Dr. Jeremías Colbyocytes/100 WBC (Bld)5.6 %Normal1.7-12.0The [facility] Comment on above:Performed By: #### CBC #### [facility] [address] [place] [address] Dr. Jeremías Low #6.1 103/ulNormal1.4-6.5The [facility] HospitalComment on above:Performed By: #### CBC #### [facility] [address] [place] [address] Dr. Jeremías Zhouutrophils/100 WBC (Bld)70.8 %Cywwln82.0-75.0The [facility] HospitalComment on above:Performed By: #### CBC #### [facility] [address] [place] [address] Dr. Jeremías Martinezlet mean volume (Bld) [Entitic vol]12.3 fLNormal9.5-13.5The [facility] HospitalComment on above:Performed By: #### CBC #### [facility] [address] [place] [address] [address] Jeremías GfafneyPLT135 103/ulCritically zqf555-500Abk [facility] on above:Performed By: #### CBC #### [facility] [address] [place] [address] [address] Jeremías GaffneyRBC5.19 106/ulNormal4.70-6.10The [facility] on above:Performed By: #### CBC #### [facility] [address] [place] [address] [address] Jeremías GaffneyWBC8.6 103/ulNormal4.0-11.0The [facility] on above: Performed By: #### CBC #### [facility] [address] [place] [address] [address] Jeremías GaffneyGLYCOHEMOGLOBIN A1Con 61-32-1493VYW RECOMMENDATIONSEE BELOWPeoples HospitalComuniversity of michigan health on above:Result Comment: ADA RECOMMENDED LIMIT 4.0 - 6.0 ADA THERAPEUTIC TARGET < 7.0 ACTION SUGGESTED > 7.0Performed By: #### ALT, AST #### [facility] [address] [place] [address] Dr. Jeremías GaffneyGlucose [Mass/Vol]137 mg/dLNoParkview Health Montpelier Hospital on above:Performed By: #### ALT, AST #### [facility] [address] [place] [address] [address] Jeremías GaffneyHbA1c (Bld) [Mass fraction]6.4 %Critically high4.5-6.2The [facility] on above:Performed By: #### ALT, AST #### [facility] [address] [place] [address] Dr. Jeremías GaffneyLIPID PROFILEon 97-08-4739CGES-HDL RATIO NORMSEE [facility] on above:Result Comment: 3.3 - 4.4 LOW RISK 4.4 - 7.1 AVERAGE RISK 7.1 - 11.0 MODERATE RISK >11.0 HIGH RISKPerformed By: #### ALT, AST #### [facility] [address] [place] [address] Dr. Jeremías GaffneyCholesterol [Mass/Vol]140 mg/dLNormal<=200The [facility] Comment on above:Performed By: #### ALT, AST #### [facility] [address] [place] [address] [address] Jeremías GaffneyCholesterol in HDL [Mass/Vol]53 mg/zAYgmerc45-75IpjSt. Mary'S [facility] Center, [facility] CampusComment on above:Performed By: #### ALT, AST #### [facility] [address] [place] [address] [address] Jeremías GaffneyCholesterol in LDL [Mass/Vol]60.0 mg/dLPremier HealthComment on above:Performed By: #### ALT, AST #### [facility] [address] [place] [address] Dr. Jeremías Foreman.total/Cholesterol in HDL [Mass ratio]2.6 {ratio} NormalSt. Mary'S Medical Center, Ironton CampusComment on above:Performed By: #### ALT, AST #### [facility] [address] [place] [address] Dr. Jeremías Domingo NORMAL> or = 60 mg/dl - LOW CARDIOVASCULAR RISK <40 mg/dl - HIGH CARDIOVASCULAR RISKPremier HealthComment on above:Performed By: #### ALT, AST #### [facility] [address] [place] [address] Dr. Jeremías Bueno CALC NORMALSEE BELOWPremier HealthComment on above:Result Comment: <100 mg/dl OPTIMAL 100 - 129 mg/dl NEAR OR ABOVE OPTIMAL 130 - 159 mg/dl BORDERLINE HIGH 160 - 189 mg/dl HIGH >190 mg/dl VERY HIGH Performed By: #### ALT, AST #### [facility] [address] [place] [address] Dr. Jeremías GaffneyTriglyceride [Mass/Vol]135 mg/dLNormal<=150St[facility] Comment on above:Performed By: #### ALT, AST #### [facility] [address] [place] [address] Dr. Jeremías GaffneyVLDL CALC27.0 mg/dLNoWVUMedicine Barnesville HospitalComment on above: Performed By: #### ALT, AST #### [facility] [address] [place] [address] Dr. Jeremías GaffneyPROF CHEM 8 (BAS METB)on 31-35-9511Nvmmn gap [Moles/Vol]12.0 mmol/LNormalThe [facility] HospitalComment on above:Performed By: #### ALT, AST, BMP, LIPID #### [facility] [address] [place] [address] [address] Jeremías GaffneyCalcium [Mass/Vol]9.4 mg/dLNormal8.5-10.1[facility] Comment on above:Performed By: #### ALT, AST, BMP, LIPID #### [facility] [address] [place] [address] Dr. Jeremías GaffneyChloride [Moles/Vol]105 mmol/RPagand15-130CpcSt. Mary'S [facility] Comment on above:Performed By: #### ALT, AST, BMP, LIPID #### [facility] [address] [place] [address] Dr. Jeremías GaffneyCO2 [Moles/Vol]29.8 mmol/EItpwgy30.0-32.0[facility] Comment on above:Performed By: #### ALT, AST, BMP, LIPID #### [facility] [address] [place] [address] Dr. Jeremías GaffneyCreatinine [Mass/Vol]0.77 mg/dLNormal0.70-1.30The [facility] HospitalComment on above:Performed By: #### ALT, AST, BMP, LIPID #### [facility] [address] [place] [address] Dr. Jeremías LoweGFR-AF MACANESE>60Normal>=60The [facility] HospitalComment on above:Performed By: #### ALT, AST, BMP, LIPID #### [facility] [address] [place] [address] Dr. Jeremías LoweGFR-NON AF MACANESE>60Normal>=60The [facility] HospitalComment on above:Performed By: #### ALT, AST, BMP, LIPID #### [facility] [address] [place] [address] Dr. Jeremías GaffneyGlucose [Mass/Vol]132 mg/dLCritically rqnh99-164Kfb [facility] HospitalComment on above:Performed By: #### ALT, AST, BMP, LIPID #### [facility] [address] [place] [address] [address] Jeremías GaffneyPotassium [Moles/Vol]4.8 mmol/LNormal3.5-5.1The [facility] Comment on above:Performed By: #### ALT, AST, BMP, LIPID #### [facility] [address] [place] [address] [address] Jeremías GaffneySodium [Moles/Vol]142 mmol/PPymkka134-890Zxy [facility] Comment on above:Performed By: #### ALT, AST, BMP, LIPID #### [facility] [address] [place] [address] [address] Jeremías GaffneyUrea nitrogen [Mass/Vol]20.0 mg/dLCritically high7.0-18.0The [facility] HospitalComment on above:Performed By: #### ALT, AST, BMP, LIPID #### [facility] [address] [place] [address] [address] Jeremías Correia nitrogen/Creatinine [Mass ratio]26.0 mg/mgNormalThe [facility] HospitalComment on above:Performed By: #### ALT, AST, BMP, LIPID #### [facility] [address] [place] [address] [address] Jeremías lAberts 37-16-7612EWH [Catalytic activity/Vol]49 U/LCritically wglo14-62Ltn [facility] HospitalComment on above:Performed By: #### ALT, AST, BMP, LIPID #### [facility] [address] [place] [address] [address] Jeremías Mendes 30-34-3476MZZ [Catalytic activity/Vol]81 U/LCritically oozv06-36Lkx [facility] Hospitalment on above:Performed By: #### ALT, AST #### [facility] [address] [place] [address] [address] Jeremías Whiteice Visit (Cardiology)on 80-50-8561Qpheoq-up visit Diagnoses/Problems Assessed 3-vessel coronary artery disease [...] mid RCA and left circumflex with mature lzpu-hz-sfkek and left to left collateral network. Ejection [...] since he was last seen last year. Assessment/recommendations: 1?severe coronary artery disease confirmed by cardiac [...] will continue aggressivemodification risk factor for CAD. 2?ischemic cardiopathy stage [...] Recorded: 05Nov2022 10:44AM Heart Rate76, L Radial Ctetoout086, RUE, Sitting Mdvyuysfi28, RUE, Sitting Height5 ft 5 in Igsmel357 lb BMI Fhtzornmmy68.95 kg/m2 BSA Calculated1.94 To (more content not included)...NormalUH TouchworksTobacco Screening.on 32-26-7780Isvof depression screening assessmentNoShriners Hospitals for Children [employer] DO Work Phone: Fall risk assessmenta) No falls within the last year [facility] [employer] DO Work Phone: Tobacco use status CPHSb) NoMFairfax Hospital FundedByMe DO Work Phone: US ARTERY LEG RTon [id number] ARTERY LEG RT EXAMINATION: US ARTERY LEG RT HISTORY: Peripheral vascular disease (disorder) [...] Electronically authenticated by: GARRETT MONTAGUE Date: 2022-06-23 20:08[facility] AUTO DIFFon 33-28-5944TWHI #0.1 103/ulNormal0.0-0.1The [facility] HospitalComment on above:Performed By: #### CBC #### [facility] [address] [address] [address] Jeremías GaffneyBasophils/100 WBC (Bld)0.5 %Normal0.2-2.0The [facility] Comment on above:Performed By: #### CBC #### [facility] [address] [place] [address] Dr. Jeremías Toro #0.2 103/ulNormal0.0-0.7The [facility] HospitalComment on above: Performed By: #### CBC #### [facility] [address] [place] [address] Dr. Jeremías Loweosinophils/100 WBC (Bld)1.5 %Normal0.9-7.0The [facility] Comment on above:Performed By: #### CBC #### [facility] [address] [place] [address] Dr. Jeremías Lowerythrocyte distribution width (RBC) [Ratio]13.3 %Xjwurx84.0-15.0 The [facility] HospitalComment on above:Performed By: #### CBC #### [facility] [address] [place] [address] Dr. Jeremías GaffneyHematocrit (Bld) [Volume fraction]43.2 %Grykol31.0-54.0The [facility] HospitalComment on above:Performed By: #### CBC #### [facility] [address] [place] [address] Dr. Jeremías GaffneyHemoglobin (Bld) [Mass/Vol]14.4 g/aSHrvyuk69.0-18.0The [facility] HospitalComment on above:Performed By: #### CBC #### [facility] [address] [place] [address] Dr. Jeremías Andre #0.04 10e3/ulCritically high0.00-0.03The [facility] Comment on above:Performed By: #### CBC #### [facility] [address] [address] [address] Jeremías Andre %0.4 %Normal0.0-0.5The [facility] on above: Performed By: #### CBC #### [facility] [address] [place] [address] Dr. Jeremías Suarez #1.6 103/ulNormal1.2-3.8The [facility] HospitalComuniversity of [facility] on above:Performed By: #### CBC #### [facility] [address] [place] [address] Dr. Jeremías Paradahocytes/100 WBC (Bld)15.0 %Critically low20.5-60.0The [facility] on above:Performed By: #### CBC #### [facility] [address] [place] [address] Dr. Jeremías HawthorneUAL DIFF REQNONormalThe [facility] HospitalComment on above: Performed By: #### CBC #### [facility] [address] [place] [address] Dr. Jeremías Duran (RBC) [Entitic mass]28.7 gjPzfebp66.9-34.0The [facility] on above:Performed By: #### CBC #### [facility] [address] [place] [address] Dr. Jeremías Duran (RBC) [Mass/Vol]33.3 g/oQBgqjjm51.9-35.2The [facility] on above:Performed By: #### CBC #### [facility] [address] [place] [address] Dr. Jeremías Duran (RBC) [Entitic vol]86.1 dPKurggu99.0-94.0The [facility] on above:Performed By: #### CBC #### [facility] [address] [place] [address] Dr. Jeremías Snyder #0.5 103/ulNormal0.3-0.8The [facility]ment on above:Performed By: #### CBC #### [facility] [address] [address] [address] Jeremías Colbyocytes/100 WBC (Bld)4.4 %Normal1.7-12.0[facility] Comment on above:Performed By: #### CBC #### [facility] [address] [address] [address] Jeremías ZhouUT #8.1 103/ulCritically high1.4-6.5The [facility] Comment on above:Performed By: #### CBC #### [facility] [address] [place] [address] Dr. Jeremías Zhouutrophils/100 WBC (Bld)78.2 %Critically high43.0-75.0The [facility] HospitalComment on above:Performed By: #### CBC #### [facility] [address] [place] [address] Dr. Jeremías GaffneyPlatelet mean volume (Bld) [Entitic vol]11.9 fLNormal9.5-13.5The [facility] HospitalComment on above:Performed By: #### CBC #### [facility] [address] [address] [address] Jeremías GaffneyPLT161 103/dzXxjdyu313-977Nxl [facility] HospitalComment on above: Performed By: #### CBC #### [facility] [address] [place] [address] Dr. Jeremías GaffneyRBC5.02 106/ulNormal4.70-6.10The [facility] HospitalComment on above:Performed By: #### CBC #### [facility] [address] [place] [address] Dr. Jeremías GaffneyWBC10.4 103/ulNormal4.0-11.0The [facility] HospitalComment on above:Performed By: #### CBC #### [facility] [address] [place] [address] Dr. Jeremías GaffneyGLYCOHEMOGLOBIN A1Con 28-71-2065XXI RECOMMENDATIONSEE BELOWNormct The [facility] HospitalComment on above:Result Comment: ADA RECOMMENDED LIMIT 4.0 - 6.0 ADA THERAPEUTIC TARGET < 7.0 ACTION SUGGESTED > 7.0Performed By: #### A1C #### [facility] [address] [place] [address] Dr. Jeremías GaffneyGlucose [Mass/Vol]134 mg/dLNoWVUMedicine Barnesville HospitalComment on above:Performed By: #### A1C #### [facility] [address] [place] [address] Dr. Jeremías GaffneyHbA1c (Bld) [Mass fraction]6.3 %Critically high4.5-6.2The [facility] HospitalComment on above:Performed By: #### A1C #### [facility] [address] [place] [address] Dr. Jeremías CoronadoID PROFILEon 61-73-1903PDEO-HDL RATIO NORMSEE [facility] HospitalComment on above:Result Comment: 3.3 - 4.4 LOW RISK 4.4 - 7.1 AVERAGE RISK 7.1 - 11.0 MODERATE RISK >11.0 HIGH RISKPerformed By: #### CMP, LIPID #### [facility] [address] [place] [address] Dr. Jeremías GaffneyCholesterol [Mass/Vol]110 mg/dLNormal<=200The [facility] Comment on above:Performed By: #### CMP, LIPID #### [facility] [address] [place] [address] Dr. Jeremías GaffneyCholesterol in HDL [Mass/Vol]52 mg/sHUougug05-60Cvs [facility] HospitalComment on above:Performed By: #### CMP, LIPID #### [facility] [address] [place] [address] Dr. Jeremías GaffneyCholesterol in LDL [Mass/Vol]29.2 mg/dLPremier HealthComuniversity of michigan health on above:Performed By: #### CMP, LIPID #### [facility] [address] [place] [address] Dr. Jeremías GaffneyCholesterol.total/Cholesterol in HDL [Mass ratio]2.1 {ratio} NormalThe [facility] HospitalComment on above:Performed By: #### CMP, LIPID #### [facility] [address] [address] [address] Jeremías Domingo NORMAL> or = 60 mg/dl - LOW CARDIOVASCULAR RISK <40 mg/dl - HIGH CARDIOVASCULAR RISKCity Hospital on above:Performed By: #### CMP, LIPID #### [facility] [address] [address] [address] Jeremías GaffneyLDL CALC NORMALSEE BELOWNoWVUMedicine Barnesville HospitalComment on above:Result Comment: <100 mg/dl OPTIMAL 100 - 129 mg/dl NEAR OR ABOVE OPTIMAL 130 - 159 mg/dl BORDERLINE HIGH 160 - 189 mg/dl HIGH >190 mg/dl VERY HIGH Performed By: #### CMP, LIPID #### [facility] [address] [place] [address] Dr. Jereímas GaffneyTriglyceride [Mass/Vol]144 mg/dLNormal<=150The [facility] Comment on above:Performed By: #### CMP, LIPID #### [facility] [address] [place] [address] Dr. Jeremías CohenLDL CALC28.8 mg/dLNoWVUMedicine Barnesville HospitalComuniversity of mich[facility] health on above: Performed By: #### CMP, LIPID #### [facility] [address] [place] [address] Dr. Jeremías GaffneyPROF 14(COMP METB)on 71-54-2543Xvbuuer [Mass/Vol]3.8 g/dLNormal 3.4-5.0[facility] on above:Performed By: #### CMP, LIPID #### [facility] [address] [place] [address] Dr. Jeremías GaffneyAlbumin/Globulin [Mass ratio]1.0 {ratio}NormalThe [facility] on above:Performed By: #### CMP, LIPID #### [facility] [address] [place] [address] Dr. Jeremías RosalesP [Catalytic activity/Vol]70 U/PTyfhlc54-703Dmi [facility] on above:Performed By: #### CMP, LIPID #### [facility] [address] [address] [address] Jeremías Durham [Catalytic activity/Vol]40 U/DQuhmln86-31Eks [facility] HospitalComment on above:Performed By: #### CMP, LIPID #### [facility] [address] [address] [address] Jeremías GaffneyAnion gap [Moles/Vol]11.9 mmol/LNormalThe [facility] Comment on above:Performed By: #### CMP, LIPID #### [facility] [address] [address] [address] Jeremías GaffneyAST [Catalytic activity/Vol]18 U/TVlfbml45-65Pic [facility] HospitalComment on above:Performed By: #### CMP, LIPID #### [facility] [address] [address] [address] Jeremías GaffneyBilirubin [Mass/Vol]0.7 mg/dLNormal0.2-1.0The [facility] Comment on above:Performed By: #### CMP, LIPID #### [facility] [address] [address] [address] Jeremías GaffnyeCalcium [Mass/Vol]9.0 mg/dLNormal8.5-10.1[facility] Comment on above:Performed By: #### CMP, LIPID #### [facility] [address] [address] [address] Jeremías GaffneyChloride [Moles/Vol]103 mmol/RNzgybu80-901Jra [facility] Comment on above:Performed By: #### CMP, LIPID #### [facility] [address] [address] [address] Jeremías GaffneyCO2 [Moles/Vol]28.4 mmol/ULljoqy17.0-32.0The [facility] Comment on above:Performed By: #### CMP, LIPID #### [facility] [address] [address] [address] Jeremías GaffneyCreatinine [Mass/Vol]0.72 mg/dLNormal0.70-1.30The [facility] HospitalComment on above:Performed By: #### CMP, LIPID #### [facility] [address] [address] [address] Jeremías LoweGFR-AF MACANESE>60Normal>=60The [facility] HospitalComment on above:Performed By: #### CMP, LIPID #### [facility] [address] [address] [address] Jeremías LoweGFR-NON AF MACANESE>60Normal>=60The [facility] HospitalComment on above:Performed By: #### CMP, LIPID #### [facility] [address] [address] [address] Jeremías GaffneyGlobulin (S) [Mass/Vol]3.8 g/dLNormalThe [facility] HospitalComment on above:Performed By: #### CMP, LIPID #### [facility] [address] [place] [address] Dr. Jeremías GaffneyGlucose [Mass/Vol]106 mg/nPKctkkw65-482HavSt. [facility] Comment on above:Performed By: #### CMP, LIPID #### [facility] [address] [address] [address] Jeremías GaffneyPotassium [Moles/Vol]4.3 mmol/LNormal3.5-5.1The [facility] Comment on above:Performed By: #### CMP, LIPID #### [facility] [address] [address] [address] Jeremías GaffneyProtein [Mass/Vol]7.6 g/dLNormal6.4-8.2The [facility] Comment on above:Performed By: #### CMP, LIPID #### [facility] [address] [address] [address] Jeremías GaffneySodium [Moles/Vol]139 mmol/JRrzwkg706-716Flb [facility] Comment on above:Performed By: #### CMP, LIPID #### [facility] [address] [address] [address] Jeremías GaffneyUrea nitrogen [Mass/Vol]19.0 mg/dLCritically high7.0-18.0The [facility] HospitalComment on above:Performed By: #### CMP, LIPID #### [facility] [address] [address] [address] Jeremías GaffneyUrea nitrogen/Creatinine [Mass ratio]26.4 mg/mgPremier HealthComment on above:Performed By: #### CMP, LIPID #### [facility] [address] [address] [address] Jeremías GaffneyMRI Cardiac w/wo contrast for Morph/Funct and Valve Dzon 63-17-9146SOV Cardiac w/wo contrast for Morph/Funct and Valve DzNormalShriners Hospitals for [facility] DO Work Phone: th MRI CARDIAC RESONANCE IMAGING FOR VELOCITY FLOW MAPPINGon 01-68-0819SL MRI CARDIAC RESONANCE IMAGING FOR VELOCITY FLOW MAPPING [facility] CMR Report Name: GIAN SANDOVAL : 1960 Scan Date: 2022-01-30 11:10:00 Electronically signed by SHARAN THOMAS 10:03:32 GENERAL INFORMATION HEIGHT: 66.00 in (167.64 cm) WEIGHT: 187.00 lbs (84.82 kgs) BSA: 1.94 m^2 BP: 110 / 72 mmHg BASELINE HR: 73 BPM SCAN LOCATION: [facility] REFERRING PHYSICIAN: YOHAN VILLALTA ATTENDING PHYSICIAN: YOHAN VILLALTA TECHNOLOGIST: RAZA SORIA ACCESSION NUMBER: [id number] CPT CODES: 09005 ICD10 CODES: I42.9, [ , ]I25.10 SUMMARY [...] normal. CORE EXAM MEASUREMENTS VOLUMETRIC ANALYSIS . . . . . LV . Reference . RV . Reference . +------+ +------+ +------+ + . EDV . ml . 193 . [...] . 57 . (55-81) . '------+ +------+ +------+ ' CARDIAC OUTPUT HR: 74 BPM LV DIMENSIONS [...] Wall Motion . Hyperenhancement (more content not included)...Normal [facility] MRI CARDIAC W/WO CONTRAST FOR MORPH/FUNCT AND VALVE [facility] 04-51-2782VQ MRI CARDIAC W/WO CONTRAST FOR MORPH/FUNCT AND VALVE [facility] CMR Report Name: GIAN SANDOVAL : 1960 Scan Date: 2022-01-30 11:10:00 Electronically signed by SHARAN THOMAS 10:03:32 GENERAL INFORMATION HEIGHT: 66.00 in (167.64 cm) WEIGHT: 187.00 lbs (84.82 kgs) BSA: 1.94 m^2 BP: 110 / 72 mmHg BASELINE HR: 73 BPM SCAN LOCATION: [facility] REFERRING PHYSICIAN: YOHAN VILLALTA ATTENDING PHYSICIAN: YOHAN VILLALTA TECHNOLOGIST: RAZA SORIA ACCESSION NUMBER: [id number] CPT CODES: 63132 ICD10 CODES: I42.9, [ , ]I25.10 SUMMARY [...] normal. CORE EXAM MEASUREMENTS VOLUMETRIC ANALYSIS . . . . . LV . Reference . RV . Reference . +------+ +------+ +------+ + . EDV . ml . 193 . [...] . 57 . (55-81) . '------+ +------+ +------+ ' CARDIAC OUTPUT HR: 74 BPM LV DIMENSIONS [...] Wall Motion . Hyperenhancement (more content not included)...Normal [facility] HospitalNo Panel Informationon \S\96Normal-[facility] DO Work Phone: Comment on above:Random Glucose Reference Range is dependent on time and content of last meal. Glucose of more than 200 mg/dL in a nonstressed, ambulatory subject supports the diagnosis of Diabetes Mellitus.PERFORMEDBY:[facility] ESCOBEDOBERNYPEACHL[address], [place] [id number] MEDICAL DIRECTORSHILOH SPRINGER M.D.Activated partial thromboplastin time (aPTT) in platelet poor plasma by coagulation a Ordered By: Yohan Villalta on 00-16-4077uBFZ Coag (PPP) [Time]35.2 s25.1-36.5 [facility] CenterBasophils Auto (Bld) [#/Vol]Ordered By: Yohan Villalta on 72-71-5803Qrncyyulw (Bld) [#/Vol]0.0 10*3/uL0.0-0.2FMagruder HospitalBasophils/100 WBC Auto (Bld)Ordered By: Yohan Villalta on 25-87-2373Prbgqadsm/100 WBC (Bld)0.3 %[facility] CenterBlood hemoglobin measurement (mass/volume)Ordered By: Yohan Villalta on 12-24-2021 Hemoglobin (Bld) [Mass/Vol]12.8 g/dL13.0-17.0[facility] Blood leukocytes automated count (number/volume)Ordered By: Yohan Villalta on 88-53-5743LHT (Bld) [#/Vol]12.6 10*3/uL4.5-11.0[facility] COVID-19 SOFIAOrdered By: Yohan Villalta on 00-98-8069IEQQ-CoV+SARS-CoV-2 (COVID-19) Ag IA.rapid Ql (Resp)NegativeNegativeAdena Regional Medical CenterComment on above:This is a duplicate Diana SARS Antigen (THEODORE) result to be used for statistical tracking purpose only.Cholesterol [Mass/volume] in Serum or PlasmaOrdered By: Yohan Villalta on 06-66-8688Pnalgwhmyah [Mass/Vol]105 mg/dL 140-200[facility] CenterComment on above:Chol less than 200 mg/dl low riskChol 201-239 mg/dl borderline riskChol 240 mg/dl and greater high riskCholesterol in LDL Calc [Mass/Vol]Ordered By: Yohan Villatla on 12-24-2021 Cholesterol in LDL [Mass/Vol]39 mg/dL0-100[facility] Comment on above:LDL ATP III CLASSIFICATIONLDL less than 100 mg/dL OptimalLDL 100-129 mg/dL Near or above xrfkkikPNT386-857 mg/dL Borderline highLDL 160-189 mg/dL HighLDL greater than 189 mg/dL Very highCholesterol in VLDL Calc [Mass/Vol]Ordered By: Yohan Villalta on 17-47-1189Cwsozfiojrn in VLDL [Mass/Vol] 25 mg/dLAdena Regional Medical CenterCreatinine and Glomerular filtration rate.predicted panel (S/P/Bld)Ordered By: Yohan Villalta on 38-08-1584Rrilqziref [Mass/Vol]0.88 mg/dL0.64-1.27[facility] CenterEosinophils Auto (Bld) [#/Vol]Ordered By: Yohan Villalta on 98-33-8134Toksrbynxlr (Bld) [#/Vol] 0.2 10*3/uL0.0-0.45[facility] CenterEosinophils/100 WBC Auto (Bld)Ordered By: Yohan Villalta on 07-00-0768Idiwzrnudko/100 WBC (Bld)1.7 % [facility] CenterErythrocyte distribution width Auto (RBC) [Ratio]Ordered By: Yohan Villalta on 51-72-8458Itfdwwwgzbk distribution width (RBC) [Ratio]13.2 %12.0-14.8[facility] CenterEstimated glomerular filtration rate (GFR) non- AmericanOrdered By: Yohan Villalta on 07-89-9809HOA/1.73 sq M.predicted among non-blacks MDRD (S/P/Bld) [Vol rate/Area]> 60 mL/MinAdena Regional Medical CenterHematocrit Auto (Bld) [Volume fraction]Ordered By: Yohan Villalta on 65-22-9574Wyjggwplqu (Bld) [Volume fraction]37.6 %38.8-50.0[facility] CenterLaboratory - Chemistry and Chemistry - challengeon 91-31-0038Zmhywfumkfl [Mass/Vol]105\S\105 below low -782MJ-Kktiw [facility] DO Work Phone: Comment on above:Chol less than 200 mg/dl low risk Chol 201-239 mg/dl borderline risk Chol 240 mg/dl and greater high risk Cholesterol in LDL [Mass/Vol]39\S\71Zldsca2-282JH-ApafsLakeview Hospital 250 DO Work Phone: Comment on above:LDL ATP III CLASSIFICATION LDL less than 100 mg/dL Optimal LDL 100-129 mg/dL Near or above optimal LDL 130-159 mg/dL Borderline high LDL 160-189 mg/dL High LDL greater than 189 mg/dL Very high Laboratory - CoagulationOrdered By: Yohan Villalta on 58-01-3677IY Coag (PPP) [Time]13.2 s9.0-12.9[facility] CenterLaboratory - Hematology and Cell countsOrdered By: Yohan Villalta on 82-41-8692Jwqwjlwuz RBC/100 WBC (Bld) [Ratio]0.0 %0-0.5FMagruder HospitalLaboratory - Microbiology and Antimicrobial susceptibilityon 47-69-5399BCXS-CoV-2 (COVID-19) RNA JOSE+probe Ql (Unsp spec)-[address] [address] DO Work Phone: Lymphocytes Auto (Bld) [#/Vol]Ordered By: Yohan Villalta on 35-84-3358Zhvjveommns (Bld) [#/Vol]1.7 10*3/uL1.00-4.8[facility] CenterLymphocytes/100 WBC Auto (Bld)Ordered By: Yohna Villalta on 61-36-1358Ghqgeunnmiw/100 WBC (Bld)13.6 %[facility] CenterH Auto (RBC) [Entitic mass]Ordered By: Yohan Villalta on 20-19-6869AEL (RBC) [Entitic mass]28.5 pg27.5-35.2FMagruder HospitalMCHC Auto (RBC) [Mass/Vol]Ordered By: Yohan Villalta on 57-37-6951HPHA (RBC) [Mass/Vol]33.9 g/dL 32.5-35.6FMagruder HospitalMCV Auto (RBC) [Entitic vol]Ordered By: Yohan Villalta on 66-42-1298RZT (RBC) [Entitic vol]84.1 fL83.5-101[facility] CenterMonocytes Auto (Bld) [#/Vol]Ordered By: Yohan Villalta on 68-99-2734Xkgkddqrx (Bld) [#/Vol]0.8 10*3/uL0.0-0.8[facility] CenterMonocytes/100 WBC Auto (Bld)Ordered By: Yohan Villalta on 12-24-2021 Monocytes/100 WBC (Bld)6.7 %[facility] Medical CenterNeutrophils Auto (Bld) [#/Vol]Ordered By: Yohan Villalta on 37-54-0286Gyjsquuzjxa (Bld) [#/Vol] 9.8 10*3/uL1.8-7.7FMagruder HospitalNeutrophils/100 WBC Auto (Bld)Ordered By: Yohan Villalta on 16-42-2163Xpdukbywzlc/100 WBC (Bld)77.7 % [facility] CenterNo Panel InformationOrdered By: Yohan Villalta on 48-97-3806Gbxnyqenq GFR ()> 60 mL/MinAdena Regional Medical CenterComment on above:GFR estimated reference range: According to KDOQI guidelines, <60 ml/min/1.73m2 is sufficient todiagnose a patient with chronic kidney disease.Pharmacy Creatinine Clearance (ChemN/[facility] HospitalARS Antigen (LFIA)[facility] CenterNo Panel Informationon .2\S\35.6Iyfliw19.1-36.5MP-[facility] 250 DO Work Phone: Comment on above:PERFORMED BY:[address] [address] [address] ESCOBEDOFERNANDINA [place], [place] [phone] MEDICAL DIRECTORSHILOH SPRINGER M.D.1.2\S\1.2NormalMP-[facility] 250 DO Work Phone: Comment on above:INR Therapeutic Range A) Pre- and Peroperative OAT started two weeks before surgery. NOT HIP SURGERY: 1.5 - 2.5 HIP SURGERY: 2 - 3 B) Primary and secondary prevention of venous THROMBOSIS: 2 - 3 C) Active venous thrombosis, pulmonary embolism and prevention of recurrent venous thrombosis: 2 - 3 D) Prevention of arterial thromboembolism including patients with mechanical heart valves: 3 - 4.513.2\S\13.4Mmisjq01.0-14.8MP-[facility] 250 DO Work Phone: JfrrstjyWfqlwzPmrdfvdbXB-Gvdro [facility] 250 DO Work Phone: [phone] on above:This is a duplicate Diana SARS Antigen (THEODORE) result to be used for statistical tracking purpose only.PERFORMED BY:[facility] ESCOBEDOBERNYPEACHLAND, [place] [phone] MEDICAL DIRECTORSHILOH SPRINGER M.D.77.7\S\77.7Normal. MP-[facility] 250 DO Work Phone: [phone]\S\10.4above high threshold6.6-10.1MP-[facility] 250 DO Work Phone: [phone]\S\133below low wxbylrbuz182-580KI-Zomwl [facility] 250 DO Work Phone: [phone]\S\33.0Jskjbr70.5-35.6MP-[facility] 250 DO Work Phone: [phone]\S\28.6Dolsxa17.5-35.2MP-[facility] DO Work Phone: [phone]\S\9.8above high threshold1.8-7.7MP-[facility] 250 DO Work Phone: [phone]\S\0.6Cznugd8.0-0.2MP-[facility] [address] DO Work Phone: [phone] on above:PERFORMED BY:[facility] ESCOBEDOBERNY [place] [id number] MEDICAL DIRECTORSHILOH SPRINGER M.D.0.3\S\0.3Normal.MP-[facility] 250 DO Work Phone: [phone]\S\1.0Uubwzu4.00-4.8MP-[facility] 250 DO Work Phone: [phone]\S\6.7Normal.MP-[facility] 250 DO Work Phone: [phone]\S\13.6Normal.MP-[facility] 250 DO Work Phone: [phone]\S\0.1Lfylwe6.0-0.45MP-[facility] DO Work Phone: [phone]\S\0.0Okczgf4.0-0.8MP-[facility] 250 DO Work Phone: [phone]\S\84.5Dmkyeo12.8-052DR-Hyhfn [place] [facility] 250 DO Work Phone: [phone]\S\37.6below low wbmnoinjj66.8-50.0MP-[facility] 250 DO Work Phone: [phone]\S\12.8below low albwxqmkz09.0-17.0MP-[facility] 250 DO Work Phone: [phone]\S\4.32Owcmrg4.90-5.60MP-[facility] 250 DO Work Phone: [phone]\S\12.6above high threshold4.1-10.5MP-[facility] 250 DO Work Phone: [phone]\S\25.3Mmnhpi10.0-30.0MP-[facility] 250 DO Work Phone: 1(440)[phone]\S\041Lcccoc84-127GG-Mknot [facility] 250 DO Work Phone: [phone]\S\4.8Ywybhr9.5-5.1MP-[facility] 250 DO Work Phone: [phone]) [phone]\S\666Itswky165-027HW-Pevwb [facility] 250 DO Work Phone: 1([phone]) [phone]\S\81Uyicov5-56SC-Tzddz [facility] 250 DO Work Phone: > 60NormalMP-[facility] 250 DO Work Phone: Comment on above:GFR estimated reference range: According to KDOQI guidelines, <60 ml/min/1.73m2 is sufficient todiagnose a patient with chronic kidney disease.0.88\S\0.31Sigwxi8.64-1.27MP-[facility] 250 DO Work Phone: [phone]\S\2.6Normal<5.0MP-[facility] 250 DO Work Phone: Comment on above:PERFORMED BY:[facility] [place], [place] [phone] MEDICAL DIRECTORSHILOH SPRINGER M.D.25\S\25NormalMP-[facility] 250 DO Work Phone: [phone]\S\181Juzidd26-363OV-Mnrvi [facility] 250 DO Work Phone: Comment on above:TRIG ATP III CLASSIFICATION TRIG less than 150 mg/dL Normal TRIG 150-199 mg/dL Borderline high MOWH596-377 mg/dL High TRIG greater than 500 mg/dL Very high Standard traceable to the Center for Disease Conrtrol and Prevention (CDC) test method.41\S\80Pvarjm95-61OA-Kqiah [facility] 250 DO Work Phone: Comment on above:HDL CHOL ATP-III CLASSIFICATION Cardiovascular Risk HDL > or equal to 60 mg/dL LOW HDL < 40 mg/dL HIGHPlatelet mean volume Auto (Bld) [Entitic vol]Ordered By: Yohan Villalta on 12-24-2021 Platelet mean volume (Bld) [Entitic vol]10.4 fL6.6-10.1FMagruder HospitalPlatelet poor plasma international normalized ratio (INR) by coagulation assay (relatOrdered By: Yohan Villalta on 50-60-9827XDW Coag (PPP) [Relative time]1.2 {INR}[facility] Medical CenterComment on above:INR Therapeutic Range A) Pre- and Peroperative OAT started two weeks before surgery. NOT HIP SURGERY: 1.5 - 2.5 HIP SURGERY: 2 - 3B) Primary and secondary prevention of venous THROMBOSIS: 2 - 3C) Active venous thrombosis, pulmonary embolismand prevention of recurrent venous thrombosis: 2 - 3D) Prevention of arterial thromboembolismincluding patients with mechanical heart valves: 3 - 4.5Platelets Auto (Bld) [#/Vol]Ordered By: Yohan Villalta on 19-45-3867Pzcsxmyfr (Bld) [#/Vol]133 10*3/pX827-920SuqktifncAdena Regional Medical CenterRBC Auto (Bld) [#/Vol] Ordered By: Yohan Villalta on 91-28-6572ZUT (Bld) [#/Vol]4.48 10*6/uL3.90-5.60 [facility] Hospitalerum or plasma chloride measurement (moles/volume)Ordered By: Yohan Villalta on 81-70-0624Mrlodwvb [Moles/Vol]101 mmol/P88-471ZttvwsttrTriHealth McCullough-Hyde Memorial Hospitalerum or plasma high density lipoprotein (HDL) cholesterol measurementOrdered By: Yohan Villalta 19-92-0165Oiobulabthj in HDL [Mass/Vol]41 mg/cX95-05ChbccawyxAdena Regional Medical CenterComment on above:HDL CHOL ATP-III CLASSIFICATION Cardiovascular RiskHDL > or equal to 60 mg/dL LOWHDL < 40 mg/dL HIGHSerum or plasma potassium measurement (moles/volume)Ordered By: Yohan Villalta on 89-91-7380Gfvzwethm [Moles/Vol]4.3 mmol/L3.5-5.1FSamaritan Hospitalerum or plasma sodium measurement (moles/volume)Ordered By: Yohan Villalta on 15-67-1303Duoffq [Moles/Vol]137 mmol/P244-047LxncxreshTriHealth McCullough-Hyde Memorial Hospitalerum or plasma total carbon dioxide measurement (moles/volume)Ordered By: Yohan Villalta on 82-12-6257EV7 [Moles/Vol]25.9 mmol/L22.0-30.0[facility]-Hy[facility] Memorial Hospitalerum or plasma total cholesterol/high density lipoprotein (HDL) cholesterol mass ratOrdered By: Yohan Villalta on 81-04-2467Gmovdflrkwa.total/Cholesterol in HDL [Mass ratio] 2.6 {ratio}[facility] Hospitalerum or plasma urea nitrogen measurement (mass/volume)Ordered By: Yohan Villalta on 92-66-6436Qmha nitrogen [Mass/Vol]21 mg/dL9-23A[facility] Medical CenterTriglyceride [Mass/volume] in Serum or PlasmaOrdered By: Yohan Villalta on 12-24-2021 Triglyceride [Mass/Vol]125 mg/aY00-414KmdkfruxyAdena Regional Medical CenterComment on above:TRIG ATP III CLASSIFICATIONTRIG less than 150 mg/dL NormalTRIG 150-199 mg/dL Borderline highTRIG 200-500 mg/dL High TRIG greater than 500 mg/dL Very highStandard traceable to the Center for Disease Conrtrol and Prevention (CDC) test method.Office Visit (Cardiology)on 84-40-5863Jxkhli-up visit Diagnoses/Problems Assessed Abnormal stress test (794.39) [...] IO EKG Electrocardiogram- 12 Lead; Status:Complete; Done: 13Dec2021 Class 1 obesity with body mass index (BMI) of 30.0 to 30.9 in adult Healthy Weight Tips; Status:Complete - Retrospective Authorization; Done: [id number] SocHx: Former smoker Tobacco Use Screening; Status:Complete; Done: [id number] Patient Instructions By signing my name below, Kamille Coats LPN, Scribe, attest that this documentation has been prepared under the direction and in the presence of Dr. Yohan Villalta MD. All medical record entries made by the Chuckyibe were at my direction and personally dictated by me. Mica reviewed the chart and agree that the [...] had abnormal EKG for which a nuclear stresstest was done revealing fixed perfusion defect in the RCA territory with reduced ejection fraction down to 38%. His echocardiogram showed similar finding ejection fraction 40% with regional wall motion abnormalities. 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 He has no weight gain orthopnea PND lower extremity edema. The patienthas quit smoking 20 years ago and has [...] normal he has no lower extremity edema. 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 Patient had no clinical events suggestive of acute myocardial infarction. The patient was advised that based on his diabetes and his abnormal nuclear stress test and ejection fractiondrop invasive cardiac evaluation with heart catheterization is [...] heart failure. Will monitor for the time beingand will likely require TC inhibitor's or ARB [...] not bring medication list or bottles. Called [facility] pharmacy in [place] to get medications Allergies Medication No Known [...] rashes. Neurological: no seiz (more content not included)...NormalUH TouchworksTobacco Screening.on 67-85-9323Woxgv depression screening assessmentKane County Human Resource [facility] Respectance 250 DO Work Phone: Tobacco use status CPHSb) NoM-[facility]- FilmLoop 250 DO Work Phone: Vital Signs Date TimeVital SignValuePerforming HigryzoouCozluril44-55-2758 15:35-0400Body qizxij[address] [place], [place] 3732808-27-2025 15:35-0400Body mass index (BMI) [Ratio]36.49 kg/m2Ely [address] [place], [place] 3732808-27-2025 15:35-0400Body ykdcnt15.[address] [place], [place] 3732808-27-2025 15:35-0400Diastolic blood iibgudem36 mm[Hg]Celena [address] [place], [place] 3732808-27-2025 15:35-0400Systolic blood zlvtifls585 mm[Hg][address]08-26-2025 16:01-0400Body mass index (BMI) [Ratio]34.6 kg/m2Francisca Quintana SOUND TECHNICIAN Work Phone: [facility] InstituteDagupgmchv18-05-7217 16:01-0400Body temperature 97.81 [degF]Francisca Lilian SOUND TECHNICIAN Work Phone: [place] [address]Pcpfaquqbw02-66-6161 16:01-0400Body .44 kgLisa Lilian SOUND TECHNICIAN Work Phone: [place] [address]Zfbjasmwah69-20-2160 16:01-0400Diastolic blood pzavofwl13 mm[Hg]Francisca Lilian SOUND TECHNICIAN Work Phone: [place] [address]Dzihsvvdcj80-94-7085 16:01-0400Heart rate90 /min Francisca Lilian SOUND TECHNICIAN Work Phone: [place] [address]Ktpowigahh89-75-9288 16:01-0400Respiratory rate18 /minLisa Lilian SOUND TECHNICIAN Work Phone: [place] [address]Ygfooykpmc40-74-0781 16:01-7683VkA1% (BldA) [Mass fraction]96 %Francisca Lilian SOUND TECHNICIAN Work Phone: [place] [address]Rjvubscbfl17-80-8887 16:01-0400Systolic blood sxgsreid900 mm[Hg]Francisca Lilian SOUND TECHNICIAN Work Phone: [place] [address]Psnwplpjcq38-88-0242 13:52-0400Body cm Yohan Villalta MD Work Phone: [facility]08-11-2025 13:52-0400 Body mass index (BMI) [Ratio]36.49 kg/v3UvgptyYohan Villalta MD Work Phone: [facility]08-11-2025 13:52-0400 Body orfdtw67.44 kgYohan Villalta MD Work Phone: [facility]08-11-2025 13:52-0400 Diastolic blood tpziehtv59 mm[Hg]Yohan Villalta MD Work Phone: [facility]08-11-2025 13:52-0400 Heart rate80 /minYohan Villalta MD Work Phone: [facility]08-11-2025 13:52-0400 Systolic blood goipexvo418 mm[Hg]Yohan Villalta MD Work Phone: [facility]06-25-2025 17:50-0400 Body mass index (BMI) [Ratio]35.09 kg/m2Juanisa Lilian SOUND TECHNICIAN Work Phone: [facility] InstituteHdvfobnqqr40-27-9185 17:50-0400Body temperature 97.81 [degF]Francisca Lilian SOUND TECHNICIAN Work Phone: [facility] InstituteRaaypwmeoy52-19-5220 17:50-0400Body hpdqco70.72 kgLisa Marihmacyz SOUND TECHNICIAN Work Phone: [facility] InstituteJtemtujycd38-87-6471 17:50-0400Diastolic blood umbkleix13 mm[Hg]Francisca Judsonz SOUND TECHNICIAN Work Phone: [facility] InstituteShvdrqxfde82-34-9908 17:50-0400Heart rate86 /min Francisca Marihholz SOUND TECHNICIAN Work Phone: [facility] InstituteYfpsswudkg87-18-5739 17:50-0400Respiratory rate20 /minLisa Marihmacyz SOUND TECHNICIAN Work Phone: [facility] InstituteGapkwdpisx00-90-4570 17:50-6245LkK6% (BldA) [Mass fraction]97 %Francisca Judsonz SOUND TECHNICIAN Work Phone: [facility] InstituteEoaiyngmjo81-82-6979 17:50-0400Systolic blood kyvekuyi954 mm[Hg]Francisca Quintana SOUND TECHNICIAN Work Phone: noChristian HospitalAwlvqwxydi44-65-8988 15:37-0500Body ggisal680.6 cmAmeliaittelaine Arias SOUND TECHNICIAN Work Phone: noChristian HospitalDlintbgmdm06-04-7546 15:37-0500Body mass index (BMI) [Ratio]35.29 kg/i6Nboboosg Arias SOUND TECHNICIAN Work Phone: [facility] InstituteMskldsptid05-67-3401 15:37-0500Body temperature 98.2 [degF]Enrique Arias SOUND TECHNICIAN Work Phone: noChristian HospitalWifgnakkdq80-74-4417 15:37-0500Body ogjfyo71.26 kgBrittelaine Arias SOUND TECHNICIAN Work Phone: noChristian HospitalCnuqbimqdj31-44-8659 15:37-0500Diastolic blood mm[Hg]Enrique Arias SOUND TECHNICIAN Work Phone: [facility] InstituteHendroigfp55-96-7331 15:37-0500Heart rate78 /min Enrique Arias SOUND TECHNICIAN Work Phone: noChristian HospitalPzjgjpxgjf10-35-2666 15:37-0500Respiratory rate16 /minBrrigo Arias SOUND TECHNICIAN Work Phone: noChristian HospitalSfbkqzybtw44-39-2858 15:37-4775HnR9% (BldA) [Mass fraction]98 %Enrique Arias SOUND TECHNICIAN Work Phone: [facility] InstituteZphgstuzmf05-60-7273 15:37-0500Systolic blood nhiiuvyn089 mm[Hg]Enrique Arias SOUND TECHNICIAN Work Phone: [facility] InstituteIolziwbpdv55-36-9490 13:25-0500Body .6 cmYohan Villalta MD Work Phone: [facility]12-20-2024 13:25-0500 Body mass index (BMI) [Ratio]35.02 kg/m2FzwojmYohan Villalta MD Work Phone: [facility]12-20-2024 13:25-0500 Body bsegph25.53 kgYohan Villalta MD Work Phone: [facility]12-20-2024 13:25-0500 Diastolic blood alfiiuqf12 mm[Hg]Yohan Villalta MD Work Phone: [facility]12-20-2024 13:25-0500 Heart rate72 /minYohan Villalta MD Work Phone: [facility]12-20-2024 13:25-0500 Systolic blood ywraakfv440 mm[Hg]Yohan Villalta MD Work Phone: [facility]11-13-2024 15:53-0500 Body txlehk814.6 cmBrittany Arias SOUND TECHNICIAN Work Phone: 1([phone] [place], [place] [address]Fxgtixpapm40-95-0793 15:53-0500Body mass index (BMI) [Ratio]35.36 kg/i2Xdiqyjlu Arias SOUND TECHNICIAN Work Phone: 1(911)7-[address] [place], [place] [address]Kcxqvbwtda10-06-9103 15:53-0500Body temperature 96.01 [degF]Enrique Arias SOUND TECHNICIAN Work Phone: [place] [address]Qjcjspjgyl13-94-0101 15:53-0500Body bbumid84.44 kgBrittany Arias SOUND TECHNICIAN Work Phone: 1(316)671-[address] [place], [place] [address]Uognvyoelp03-29-6705 15:53-0500Diastolic blood mzgixiwz40 mm[Hg]Enrique Arias SOUND TECHNICIAN Work Phone: [phone] [address]Pzdldpvusa56-98-0538 15:53-0500Heart rate70 /min Enrique Arias SOUND TECHNICIAN Work Phone: [place] [address]Dwonvxpmba86-57-1473 15:53-0500Respiratory rate16 /minBrittany Arias SOUND TECHNICIAN Work Phone: 1(419)547-[address] [place], [place] [address]Himdjvhkvw07-09-4070 15:53-2457CzG3% (BldA) [Mass fraction]99 %Enrique Lawsonzpatrick SOUND TECHNICIAN Work Phone: [facility] InstituteZmfeqinfto20-44-4233 15:53-0500Systolic blood mm[Hg]Enrique Lawsonzpatrick SOUND TECHNICIAN Work Phone: [facility] InstituteAoratsebrz38-82-2159 10:14-0500Body bmfvje351 cm Yohan Villalta MD Work Phone: [facility]02-01-2024 10:14-0500 Body mass index (BMI) [Ratio]34.37 kg/q4WzzpviYohan Villalta MD Work Phone: 1(863)477-[address] [place], [place] [address]653502-01-2024 10:14-0500 Body kgYohan Villalta MD Work Phone: 1(620)353-[address] [place], [place] 6653502-01-2024 10:14-0500 Diastolic blood cndgwqgo26 mm[Hg]Yohan Villalta MD Work Phone: 1(264)400-[address] [place], [place] 6653502-01-2024 10:14-0500 Heart rate72 /minYohan Villalta MD Work Phone: 1(084)983-[address] [place], [place] 6[address]3502-01-2024 10:14-0500 Systolic blood hagmysgv332 mm[Hg]Yohan Villalta MD Work Phone: [facility]03-22-2023 00:00-0400 60 1Sopal Pearce Work Phone: 1(609) 203-8458396-1916YQ-Nqceh [facility] 600 DO Work Phone: Comment on above:OOERF41-51-4742 10:44-0500Body height 165.1 cmSopal Pearce Work Phone: mp959-5080YG-Lwgjn [facility] 250 DO Work Phone: 1(139) 527-173503-08-2023 10:44-0500Body mass index (BMI) [Ratio] 31.95 kg/n6Hyatlw Fawwad Work Phone: mp899-1416LU-Jmjhi [facility] 250 DO Work Phone: 1(588) 980-732603-08-2023 10:44-0500Body surface area Derived from formula1.94 y8ZgargcShaikh Ectorwad Work Phone: mp794-8230DJ-Hlbue [facility] 250 DO Work Phone: 1(343) 134-512403-08-2023 10:44-0500Body drspty45.09 kgShaikh Fredrickd Work Phone: mp142-1947KU-Vtscu [facility] 250 DO Work Phone: 1(477) 245-709803-08-2023 10:44-0500Diastolic blood moexkitw65 mm[Hg] Shaikh Ramses Work Phone: mp301-4683XY-Swiqm [facility] 250 DO Work Phone: 1(725) 595-985103-08-2023 10:44-0500Heart rate76 /Herminio Alcalad Work Phone: mp879-5671AO-Vhtqk [facility] 250 DO Work Phone: 1(586) 778-204803-08-2023 10:44-0500Systolic blood xhfszcea158 mm[Hg] Shaikh Ramses Work Phone: mp780-7155BP-Qmhwo [facility] 250 DO Work Phone: 1(363) 385-693904-15-2022 12:53-0400Body jyowmh229.64 Francine Alcalad Work Phone: mp675-1516VN-Tivwu [facility] 250 DO Work Phone: 1(101) 637-283704-15-2022 12:53-0400Body mass index (BMI) [Ratio] 30.18 kg/m1QuamiuShaikh Ectorwad Work Phone: mp370-0426KM-Mrmry [facility] 250 DO Work Phone: 1(255) 958-234704-15-2022 12:53-0400Body surface area Derived from formula1.94 o1UkfroxShaikh Ramses Work Phone: mp177-9182KU-Rynom [facility] 250 DO Work Phone: 1(440) 222-205304-15-2022 12:53-0400Body jrygbs37.82 kgShaikh Ramses Work Phone: mp095-7759RL-Ughyv [facility] 250 DO Work Phone: 1(399) 357-560804-15-2022 12:53-0400Diastolic blood zvtsutpo68 mm[Hg] Shaikh Ramses Work Phone: mp606-5368YM-Zovkl [facility] 250 DO Work Phone: 1(349) 240-574304-15-2022 12:53-0400Heart rate70 /Herminio Pearce Work Phone: mp260-6945CX-Ccnmf [facility] 250 DO Work Phone: 1(493) 759-956704-15-2022 12:53-0400Systolic blood mm[Hg] Shaikh Ramses Work Phone: mp178-8257EG-Owqqu [facility] 250 DO Work Phone: Encounters Encounter DateEncounter TypeCare ProviderFacilityStart: 05-31-2025 End: 64-85-2911Tittzg Calvin Lujan DO Work Phone: [facility] EyeStart: 05-31-2025 End: 09-32-0084Lxumvr flowsMiguel Lujan DO Work Phone: noms [facility] EyeStart: 05-31-2025 End: 07-26-8313dvudpvstvbVOIWFYZQ D ZAHLERNot AvailableStart: 05-31-2025 End: 19-17-9799Txafkz-up encounterGregory Lujan DO Work Phone: noms [facility] EyeComment on above:Retinal Injection; Follow-up; Diabetic RetinopathyStart: 05-26-2025 End: 72-23-4396Ehudimryan Lujan DO Work Phone: noms [facility] EyeStart: 05-26-2025 End: 88-38-9942Rydeif flowsMiguel Lujan DO Work Phone: noms [facility] EyeStart: 05-26-2025 End: 82-66-0667Rnjkubzf SupportJoleonel Lujan DO Work Phone: noms [facility] EyeComment on above:Retinal InjectionStart: 04-26-2025 End: 90-72-4434Piaipudkrl hospital visit by Celestino Byrnes [place] 3[facility] HospitalComment on above:3-vessel coronary artery disease; Cardiomyopathy, unspecified type (Multi); Hyperlipidemia, unspecified hyperlipidemia type; Diabetes mellitus of other type without complication, unspecified whether machine long goods helper insulin useStart: 04-26-2025 End: 30-21-7447fqkkazcswnRDIFQY [facility] Centertart: 04-25-2025 End: 87-17-0861Uzqgzg outpatient visit 25 Eber Quintana SOUND TECHNICIAN Work Phone: noms CW FMComment on above:Type 2 diabetes mellitus without complication, without long-term current use of insulin (HCC) (Primary Dx); Primary hypertension ; CKD stage 3b, GFR 30-44 ml/min ([facility]-HCC); Hyperlipidemia, unspecified hyperlipidemia type ; Type 2 diabetes mellitus with hyperglycemia (HCC); Irregular heart rate; Coronary artery disease involving nome coronary artery of nome heart without angina pectorisStart: 04-25-2025 End: 31-53-6522xozhhdihngYFOI AICHHOLZNot AvailableStart: 04-25-2025 End: 61-97-6550Qovtlt Cici Quintana SOUND TECHNICIAN Work Phone: noms CW FMStart: 04-25-2025 End: 54-09-5347Gmffut Cici Quintana SOUND TECHNICIAN Work Phone: noms CWM FMStart: 04-24-2025 End: 18-01-6082Yytnnyise Result EncounterFrancisca Quintana SOUND TECHNICIAN Work Phone: noms External Department UnsolicitedStart: 04-24-2025 End: 03-76-0553Jwwjrgvez Result EncounterFrancisca Quintana SOUND TECHNICIAN Work Phone: noms External Department UnsolicitedStart: 04-21-2025 End: 95-26-3515Yxbnghsqm Result EncounterGeneric External Data ProviderNOMS External Department UnsolicitedStart: 04-21-2025 End: 97-12-8955Ohqgukipv Result EncounterGeneric External Data ProviderNOMS External Department UnsolicitedStart: 04-14-2025 End: 24-35-9251Jnflrxxm SupportJoleonel Lujan DO Work Phone: noms [facility] EyeComment on above:Retinal Injection; Diabetic RetinopathyHyperlipidemia, unspecified hyperlipidemia type Start: 04-10-2025 End: 24-24-4402Cxfrym outpatient visit 25 minutesYohan Villalta MD Work Phone: uh [facility] HospitalComment on above:3-vessel coronary artery disease; Cardiomyopathy, unspecified type (Multi); Hyperlipidemia, unspecified hyperlipidemia type; Diabetes mellitus of other type without complication, unspecified whether machine long goods helper insulin use; Never smoked any substance; BMI 36.0-36.9,adultStart: 04-10-2025 End: 10-04-4263wwrdmbbgeqGRLIGP M [facility] AmbulatoryStart: 04-07-2025 End: 41-14-0438Tfklgz flowsMiguel Lujan DO Work Phone: noms [facility] EyeStart: 04-07-2025 End: 56-32-2312Sqwetwryan Lujan DO Work Phone: noms [facility] EyeStart: 04-07-2025 End: 47-21-1491Sqxkhygl SupportGregory Lujan DO Work Phone: noms [facility] EyeComment on above:Retinal Injection; Diabetic RetinopathyStart: 03-17-2025 End: 38-41-0754FlxztcVxmh Naderer MD Work Phone: noms CWM FMComment on above:Coronary artery disease involving nome coronary artery of nome heart without angina pectorisStart: 03-16-2025 End: 04-81-8756Kderllpnl Result EncounterFrancisca Youngcarlos SOUND TECHNICIAN Work Phone: noms External Department UnsolicitedStart: 03-16-2025 End: 66-20-2110Hfnylcnfv Result EncounterLisa Hectorcarlos SOUND TECHNICIAN Work Phone: noms External Department UnsolicitedStart: 03-07-2025 End: 24-48-7879Tpdoea flowsheetJonathan D Sportsyer DO Work Phone: noms NB OPHTStart: 03-07-2025 End: 86-97-8012Bbfdpo flowsheetJonathan D Sportsyer DO Work Phone: noms NB OPHTStart: 03-07-2025 End: 92-76-8399Sxaogkkq SupportJonathan D Greasebookhler DO Work Phone: noms NB OPHTComment on above:Retinal InjectionStart: 03-06-2025 End: 39-43-0590XwuyroOlup Naderer MD Work Phone: noms CWM FMComment on above:Type 2 diabetes mellitus with hyperglycemia (HCC) (Primary Dx)Start: 02-22-2025 End: 00-19-2994Bhibpf outpatient visit 25 minutesJuani Lilian SOUND TECHNICIAN Work Phone: noms CWM FMComment on above:CKD stage 3b, GFR 30-44 ml/min ([facility]-HCC) (Primary Dx); 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 (HCC); Type 2 diabetes mellitus without complication, without long-term current use of insulin ([facility]); Hyperlipidemia, unspecified hyperlipidemia type ; Primary hypertension ; Coronary artery disease involving nome coronary artery of nome heart without angina pectoris ; Diabetes mellitus type 2 with complications (HCC)Start: 02-22-2025 End: 99-51-3948kdpjjbapetEVZQ AICHHOLZNot AvailableStart: 02-22-2025 End: 17-52-7148Tsqexm flowsheetLisa Aichholz SOUND TECHNICIAN Work Phone: NOMS CWM FMStart: 02-22-2025 End: 40-10-0253Csmley flowsheetLisa Aichholz SOUND TECHNICIAN Work Phone: NOMS CWM FMStart: 02-21-2025 End: 94-85-0376Bqmwlq flowsheetGregory Price Zahler DO Work Phone: NOMS NB OPHTStart: 02-21-2025 End: 28-60-3977Myxmcc flowsMiguel Lujan DO Work Phone: NOVE NB OPHTStart: 02-21-2025 End: 86-61-6355Qcebxz-up encounterGregory Lujan DO Work Phone: NOM[facility] NB OPHTComment on above:Retinal Injection; Retinopathy; Follow-upStart: 02-21-2025 End: 04-73-8335jzbstepjpmVWQYGWKA D ZAHLERNot AvailableStart: 02-20-2025 End: 43-94-7340Jpszsbdfn Result EncounterLisa Marihholz SOUND TECHNICIAN Work Phone: NOVJ External Department UnsolicitedStart: 02-20-2025 End: 55-10-5912Uvlnfrwvp Result EncounterLisa Hectorholz SOUND TECHNICIAN Work Phone: NOCI External Department UnsolicitedStart: 01-30-2025 End: 79-86-5720RcqaynKant Naderer MD Work Phone: NOM[facility] CWM FMComment on above:Type 2 diabetes mellitus without complication, without long-term current use of insulinStart: 01-17-2025 End: 11-69-9477Gclejp Calvin Lujan DO Work Phone: NOM[facility] NB OPHTStart: 01-17-2025 End: 61-14-6986Msgaea flowsheetJonathan D Zahler DO Work Phone: NOMS NB OPHTStart: 01-17-2025 End: 10-12-4495Ndducolr SupportJonathan D Zahler DO Work Phone: NOM[facility] NB OPHTComment on above:Retinal InjectionStart: 01-10-2025 End: 18-67-3985Ntsaom flowsheetJonathan D Zahler DO Work Phone: NOMS NB OPHTStart: 01-10-2025 End: 87-66-6051Pzixzy flowsheetJonathan D Zahler DO Work Phone: NOM[facility] NB OPHTStart: 01-10-2025 End: 77-69-6122Hnuapzor SupportJonathan D Zahler DO Work Phone: NOM[facility] NB OPHTComment on above:Retinal Injection; RetinopathyStart: 12-13-2024 End: 71-60-8019Ogbmno flowsheetJonathan D Zahler DO Work Phone: NOM[facility] NB OPHTStart: 12-13-2024 End: 23-63-7621Vtlenc flowsheetJonathan D Zahler DO Work Phone: NOM[facility] NB OPHTStart: 12-13-2024 End: 54-46-4484Iqvmug-up encounterJonathan D Zahler DO Work Phone: NOMS NB OPHTComment on above:Follow-up; Retinal InjectionStart: 12-13-2024 End: 79-75-5624mhwvojfiwjFCLQZDCB D AIDEERNot AvailableStart: 12-06-2024 End: 96-03-4657Qvqpmg flowsheetJonathan D Zahler DO Work Phone: NOMS NB OPHTStart: 12-06-2024 End: 11-51-1924Vhuenm flowsheetJonathan D Zahler DO Work Phone: noms NB OPHTStart: 12-06-2024 End: 16-87-0223Lneqmn outpatient visit 25 minutesGregory Lujan DO Work Phone: noms NB OPHTComment on above:Follow-up; Blurred Vision Start: 12-06-2024 End: 73-63-4988vettwxwvvcADVHXEKG Dee TAINot AvailableStart: 11-08-2024 End: 56-14-0815Rphidcsd SupportGregory Lujan DO Work Phone: noms NB OPHTComment on above:Retinal InjectionStart: 11-02-2024 End: 65-75-9146Cqkhhk flowsheetGregory Lujan DO Work Phone: noms NB OPHTStart: 11-02-2024 End: 59-42-7958Fhpnit flowsMiguel Lujan DO Work Phone: noms NB OPHTStart: 11-02-2024 End: 68-24-2851Gezqrhlu SupportGregory Lujan DO Work Phone: noms NB OPHTComment on above:Retinal InjectionStart: 10-20-2024 End: 14-34-6308Phyruj outpatient visit 15 minutesEnrique Arias SOUND TECHNICIAN Work Phone: noms CWM FMComment on above:Primary hypertension (CMS/HCC) (Primary Dx); Type 2 diabetes mellitus without complication, without long-term current use of insulin ([facility]/HCC); Type 2 diabetes mellitus with hyperglycemia (CMS/HCC); Irregular heart rate; Hyperlipidemia, unspecified hyperlipidemia type ([facility]/HCC); Coronary artery disease involving nome coronary artery of nome heart without angina pectoris ([facility]/HCC); Chronic kidney disease (CKD) stage G3a/A1, moderately decreased glomerular filtration rate (GFR) between 45-59 mL/min/1.73 square meter and albuminuria creatinine ratio less than 30 mg/g (H* ([facility]/HCC)Start: 10-20-2024 End: 33-89-9133twauhhcelkHXZFAIFX FITZPATRICKNot AvailableStart: 10-20-2024 End: 12-72-7073Lavvjn flowsheetBrittany Arias SOUND TECHNICIAN Work Phone: NOHE CWM FMStart: 10-20-2024 End: 22-91-9118Zdsrzb flowsheetBrittany Arias SOUND TECHNICIAN Work Phone: NOLC CWM FMStart: 10-11-2024 End: 58-14-3342Vncdks flowsheetJonathan Dee Zahler DO Work Phone: NOMS NB OPHTStart: 10-11-2024 End: 57-45-6682Zxnbgo flowsheetJonathan Dee Lopezer DO Work Phone: NOTT NB OPHTStart: 10-11-2024 End: 06-89-2837Uxadoq-up encounterGregory Lujan DO Work Phone: NOMS NB OPHTComment on above:Follow-upStart: 10-11-2024 End: 42-13-9802hjstmzuxejGSPBZOSQ D ZAHLERNot AvailableStart: 10-07-2024 End: 15-22-0108Eccpoaibh Result EncounterBrittany Arias SOUND TECHNICIAN Work Phone: NOVB External Department UnsolicitedStart: 10-07-2024 End: 10-14-6798Wkpfzvovn Result EncounterBrittany Arias SOUND TECHNICIAN Work Phone: NOTX External Department UnsolicitedStart: 09-27-2024 End: 37-03-7016Ukpgiu flowsheetGregory Lopezer DO Work Phone: NOMS NB OPHTStart: 09-27-2024 End: 61-63-3675Onfmbx flowsheetJoleonel Lujan DO Work Phone: NOYD NB OPHTStart: 09-27-2024 End: 28-92-2769Acxtnadr SupportJoleonel Lujan DO Work Phone: noms NB OPHTComment on above:Retinal InjectionStart: 09-21-2024 End: 09-42-1861fhlbcjxcueWLEARGBA ZAHLERNot AvailableStart: 09-21-2024 End: 34-04-7177Bsazvbp encounter procedureRupert Mcdonald DO Work Phone: noms [facility] UCComment on above:Encounter for drug screeningStart: 09-20-2024 End: 85-51-9383Eknmoq outpatient visit 25 minutesGregory Lujan DO Work Phone: noms NB OPHTComment on above:Cystoid macular edema of both eyes (Primary Dx); 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 ([facility])Start: 09-20-2024 End: 47-31-2000nfggcidmklCGEPVGMVNiyah Mcgraw AvailableStart: 09-20-2024 End: 12-99-9007Kjyurl Calvin Lujan DO Work Phone: noms NB OPHTStart: 09-20-2024 End: 92-55-2367Ddyueiryan Lujan DO Work Phone: noms NB OPHTStart: 08-19-2024 End: 90-47-2570Sjaygi outpatient visit 25 minutesYohan Villalta MD Work Phone: [facility] HealthlandsComment on above:Diabetes mellitus type II, non insulin dependent (Multi) (Primary Dx); 3-vessel coronary artery disease; Cardiomyopathy, unspecified type (Multi); Snoring; Hyperlipidemia, unspecified hyperlipidemia type; Never smoked any substance; BMI 35.0-35.9,adult; Atherosclerotic heart disease of nome coronary artery without angina pectoris Start: 08-19-2024 End: 75-29-6948wlsklzpwiiGPQZLB [facility] AmbulatoryStart: 08-15-2024 End: 64-63-5814NaqhrgTqdneqae D Zahler DO Work Phone: NOMS NB OPHTComment on above:Cystoid macular edema of both eyes; 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 ([facility]/HCC)Start: 08-08-2024 End: 04-07-1111BcpdiaTqbbojwpJada Arias SOUND TECHNICIAN Work Phone: NOMS CWM FMComment on above:Coronary artery disease involving nome coronary artery of nome heart without angina pectoris ( S/HCC) (Primary Dx); Type 2 diabetes mellitus without complication, without long-term current use of insulin ([facility]); Type 2 diabetes mellitus with hyperglycemia ([facility]); Hyperlipidemia, unspecified hyperlipidemia type ([facility]); Irregular heart rateStart: 08-05-2024 End: 05-54-0067Pjpuxs Calvin Lujan DO Work Phone: noms NB OPHTStart: 08-05-2024 End: 36-18-6196Npeatv flowsMiguel Lujan DO Work Phone: noms NB OPHTStart: 08-05-2024 End: 41-47-7418Kuxjge outpatient visit 25 minutesGregory Lujan DO Work Phone: noms NB OPHTComment on above:Cystoid macular edema of both eyes (Primary Dx); 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 ([facility]/HCC)Start: 08-05-2024 End: 23-18-7664fxduilvhspSCMMZOLG D ZAHLERNot AvailableStart: 08-02-2024 End: 99-84-6742YnnbedEdnlpwvo Arias SOUND TECHNICIAN Work Phone: noms CWM FMComment on above:Type 2 diabetes mellitus with hyperglycemia ([facility])Start: 07-13-2024 End: 74-55-2639Icsuic outpatient visit 15 minutesEnrique Arias SOUND TECHNICIAN Work Phone: noms CWM FMComment on above:Primary hypertension ([facility]/HCC) (Primary Dx); 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 edema, without long-term current use of insulin (CMS/HCC); Hyperlipidemia, unspecified hyperlipidemia type (CMS/HCC)Start: 07-13-2024 End: 54-15-1060izdomigjwrFKMFPNNY FITZPATRICKNot AvailableStart: 07-13-2024 End: 10-49-5598Vfjbiq flowsheetBrittelaine Arias SOUND TECHNICIAN Work Phone: NOMS CWM FMStart: 07-13-2024 End: 44-99-4478Gxqkjf flowsheetBrittany Arias SOUND TECHNICIAN Work Phone: NOWX CWM FMStart: 06-23-2024 End: 11-91-5358TwsvgnVqxzdza Tracey COT Work Phone: noms NB OPHTComment on above:Age-related nuclear cataract of both eyes (Primary Dx)Start: 06-06-2024 End: 06-78-8384HcbpqhTkkertfw Arias SOUND TECHNICIAN Work Phone: NOMS CWM FMComment on above:Hyperlipidemia, unspecified hyperlipidemia type (CMS/HCC)Start: 05-24-2024 End: 57-97-7515Ijqdfu flowsMiguel Lujan DO Work Phone: noms NB OPHTStart: 05-24-2024 End: 76-60-8897Uxxfzs flowsMiguel Lujan DO Work Phone: noms NB OPHTStart: 05-24-2024 End: 09-89-1161Ywmwyt outpatient visit 25 minutesJoleonel Lujan DO Work Phone: noms NB OPHTComment on above:Age-related nuclear cataract of both eyes (Primary Dx); 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 (CMS/HCC)Start: 70-40-7825DfoogmHarini Pearce MD Work Phone: NOMV CWM IMComment on above:Type 2 diabetes mellitus without complication, without long-term current use of insulin (CMS/HCC) (P rimary Dx)Start: 79-69-4660Tedqaltwm Result EncounterSopal Pearce MD Work Phone: noms External Department UnsolicitedStart: 10-06-2023 Clinisync Result EncounterSopal Pearce MD Work Phone: noms External Department UnsolicitedStart: 10-01-2023 End: 75-45-1490Ozmniq outpatient visit 25 minutesYohan Villalta MD Work Phone: uh FirelandsComment on above:3-vessel coronary artery disease; Cardiomyopathy, unspecified type (CMS/HCC); Hyperlipidemia, unspecified hyperlipidemia type; Diabetes mellitus of other type without complication, unspecified whether half-way insulin use (CMS/HCC); Never smoked any substanceStart: 01-01-2023 End: 42-83-1042kisxikacksSN YOHAN VILLALTAFacility:X8Spnsx: 81-47-5708Vyfqglh encounter procedureSopal Pearce Work Phone: [phone]bgjm[facility] 600 DO Work Phone: Start: 11-19-2022 End: 68-62-2068luxmbkipyzZOIACI H FAWWADFacility:C5Jwzam: 60-26-8960Kpfwto outpatient visit 25 minutesShaikh Ramses Work Phone: [phone]-PvhwlChildren[facility]S [facility] 250 DO Work Phone: Start: 42-51-0101mbcrxidloeOyolzd Ibrahim Facility:[id number]: 06-23-2022 End: 81-87-6910xwexircounJSOIYG H FAWWADFacility:F2Zvxko: 06-18-2022 End: 19-11-5668nmenahfeuwIQOVVQ H FAWWADFacility:I9Tenpd: 67-13-2094Mtuen Jeffrey Pearce Work Phone: [phone]-Nxalc [facility] 250 DO Work Phone: Start: 87-63-0466Uorxdll encounter procedureSopal Pearce Work Phone: [phone]-Ztkhj [facility] 250 DO Work Phone: Start: 74-49-6229Wxidf UpdateSopal Alcalad Work Phone: [phone]-Evveu [facility] 250 DO Work Phone: Start: 09-27-9985jnakdhfnizGkhprx IbrahimFacility:[id number] Start: 58-76-6109YHBJUBPQN, Provider: Yohan Villalta, Status: Pen, Time: 2:00 PM Shaikh Ramses Work Phone: [phone]-Wxbel [facility] 250 DO Work Phone: Start: 12-26-2021 End: 32-26-9060fjphrzpqmtPmleod FawwadFacility:[facility] Start: 18-09-9577Nxoea UpdateSopal Pearce Work Phone: [phone]-Pvwvk [facility] 250 DO Work Phone: Start: 12-24-2021 End: 55-18-4370Dflcsil encounter procedureMD Yohan Villalta Work Phone: [facility] Start: 63-45-8059ticiconitpVbwcsa IbrahimFacility:[id number]: 11-20-2021 ambulatoryHaarmin VillaltaFacility:[facility] Procedures DateProcedureProcedure DetailPerforming ClinicianStart: 60-20-3187Lzjittftevfq njx pharmacologic agt spxGregory Lujan DO Work Phone: Start: 47-72-6160Iorvgvkqtfqu njx pharmacologic agt spxGregory Lujan DO Work Phone: Start: 47-96-6281Lwclmgklxbyz ophthalmic imaging retinaJonathan D Zahler DO Work Phone: Start: 29-87-4148DYW UA (CLEAN/CATCH) MICROSCOPIC IF INDICATELisa [facility] Greenez SOUND TECHNICIAN Work Phone: Start: 12-02-7745PZB CBC WITH AUTO DIFFGeneric External Data ProviderStart: 37-94-3128Tvoazrsosjrr njx pharmacologic agt spx Gregory D Zahler DO Work Phone: Start: 02-22-4733Tbcnkigniocd njx pharmacologic agt spxJonathan D Radhahler DO Work Phone: Start: 51-60-3247Umhlzrgqiawt ophthalmic imaging retinaJonathan D Radhahler DO Work Phone: Start: 33-92-0111RN RENAL BILisa [facility]ilehigh [facility]mary SOUND TECHNICIAN Work Phone: Start: 58-40-8404Nennsssyumgt njx pharmacologic agt spxJonathan D Zahler DO Work Phone: Start: 62-39-8713Uqdelnqcvb glycosylated d8rCcnn Marilehigh valley hospital - muhlenbergmary SOUND TECHNICIAN Work Phone: Start: 60-05-7130Upytyihxfkql njx pharmacologic agt spxJonathan D Radhahler DO Work Phone: Start: 35-84-9156Qsaczgwpsgcl ophthalmic imaging retinaJonathan D Radhahler DO Work Phone: Start: 47-25-8938LCE BASIC METABOLIC PANELLisa Marilehigh [facility] hospital - [facility]lenbergmary SOUND TECHNICIAN Work Phone: Start: 90-37-0414Clxdmwkkujpp njx pharmacologic agt spxJonathan D Zahler DO Work Phone: Start: 81-24-0918Imyksuhlaaoo njx pharmacologic agt spxJonathan D Zahler DO Work Phone: Start: 52-26-8663Humfehemfnlr ophthalmic imaging retinaJonathan D Radhahler DO Work Phone: Start: 30-59-7853Mdsvzitfmhcv njx pharmacologic agt spxJonathan D Zahler DO Work Phone: Start: 50-24-0425Vmavxrgproci ophthalmic imaging retinaJonathan D Zahler DO Work Phone: Start: 65-38-0950Nzprrujyvsaa njx pharmacologic agt spxJonathan D Zahler DO Work Phone: Start: 48-01-9016Wxctsmwqbmvp njx pharmacologic agt spxJonathan D Zahler DO Work Phone: Start: 31-96-6781Qzerbjrznrar njx pharmacologic agt spxJonathan D Zahler DO Work Phone: Start: 64-40-5523Kjqjozcxtnim ophthalmic imaging retinaJonathan D Radhahler DO Work Phone: Start: 48-36-1499Xgwypviddryc njx pharmacologic agt spxJonathan D Zahler DO Work Phone: Start: 51-30-7233QNX CBC WITH AUTO DIFFBrittany Arias SOUND TECHNICIAN Work Phone: Start: 62-69-3129Vicikfpbpucl njx pharmacologic agt spxJonathan D Radhahler DO Work Phone: Start: 07-99-0583Htdxousssdhc ophthalmic imaging retinaJonathan D Radhahler DO Work Phone: Start: 35-62-5454Qkdsuiuslqui ophthalmic imaging retinaJonathan D Radhahler DO Work Phone: Start: 31-04-2451Twv bmtry prtl coher intrfrmtry io lens pwr calJonathan D Radhahler DO Work Phone: Start: 50-87-5725Gcuyxrfflnpo ophthalmic imaging retinaJonathan D Radhahler DO Work Phone: Start: 93-03-2219GWA MICROALB CREAT RATIO James Pearce MD Work Phone: Start: 51-08-5086VUQQ Antigen (LFIA)MD Yohan Villalta Work Phone: Plan of Treatment DateCare ActivityDetailAuthorStart: 99-97-4580Gjfhmmrn screeningDiabetes: Retinopathy ScreeningNOMS HealthcareStart: 64-65-6684Cnjuv screening for protein Diabetes: Urine Protein ScreeningNONC HealthcareStart: 61-35-6008Vlyggwfz screeningDiabetes: Retinopathy ScreeningNONC HealthcareStart: 94-03-3122Qcmfafzo screeningDiabetes: Retinopathy ScreeningNONC HealthcareStart: 01-10-2026 Glaucoma screeningDiabetes: Retinopathy ScreeningNONC HealthcareStart: 36-28-4519Pjwhoqra screeningDiabetes: Retinopathy ScreeningNONC HealthcareStart: 11-03-2025 End: 17-23-0886Znprpon encounter dajhgetlr10/06/2026 2:50 PM EST Office Visit [address] [place] [address] Yohan Villalta MD [address] [place] [address] [address] [place] [address] [facility]landsStart: 52-51-8055Svziljqa screeningDiabetes: Retinopathy ScreeningNONC HealthcareStart: 80-93-4050Guswnbfnbpfl Vaccine: 65+ Years (1 of 2 - PCV)Pneumococcal Vaccine: 65+ Years (1 of 2 - PCV)NOMS HealthcareComment on above:Postponed from 1964 (Patient Refused)Postponed from 1977 (Patient Refused)Start: 38-01-7038Cbuncumq screeningDiabetes: Retinopathy ScreeningNONC HealthcareStart: 56-74-4304Zguvcpcssz A1c measurement Diabetes: Hemoglobin A3CLACT HealthcareStart: 90-37-1481Zlwcpcqq screening Diabetes: Retinopathy ScreeningNONC HealthcareStart: 06-26-2025 End: 31-75-4335Azpqsgv encounter tkxfdkjop41/27/2025 3:40 PM EDT Office Visit [facility] [address] [place] [phone] Francisca Quintana NP [address] [place] [address] NOMS CWM FMStart: 05-26-2025 End: 89-51-8806Kprmjukg SupportNOParkwood Behavioral Health System EyeComment on above:Arrived Start: 89-84-1274Qnmrevxr screeningDiabetes: Retinopathy ScreeningUTAH VALLEY [facility]PITAL HealthcareStart: 31-78-9798Jwzzuhryu vaccinationUTAH VALLEY HOSPITAL HealthcareStart: 04-26-2025 End: 29-03-5619Hhfduhx encounter /27/2025 4:00 PM EDT Appointment [address] [place] [address] [facility]: [facility]-25[facility]2025 End: 39-63-3702Queedpc encounter procedureNONORTHEASTERN [facility] FMComment on above:Primary hypertension (Primary Dx); CKD stage 3b, GFR 30-44 ml/min ([facility]-HCC); Type 2 diabetes mellitus without complication, without long-term current use of insulin ([facility])Start: 04-21-2025 End: 31-35-3873Kpnoacm encounter djccbophv37/22/2025 1:40 PM EDT Office Visit [address] [place] [address] Yohan Villalta MD [address] [facility] [address], [address] [place] [address] [facility] HighlandsStart: 04-10-2025 End: 01-30-5399Leutayx aminotransferase [Enzymatic activity/volume] in Serum or Plasma by With P-5'-PAlanine Aminotransferase Lab Routine Hyperlipidemia, unspecified hyperlipidemia type Expected: 04/10/2025, Expires: 04/10/2026 [facility] Work Phone: Comment on above:Expected: 04/10/2025, Expires: 04/10/2026Start: 04-10-2025 End: 66-54-9557Rhmlozxkj aminotransferase [Enzymatic activity/volume] in Serum or Plasma by With P-5'-PAspartate Aminotransferase Lab Routine Hyperlipidemia, unspecified hyperlipidemia type Expected: 04/10/2025, Expires: 04/10/2026 [facility] Work Phone: Comment on above:Expected: 04/10/2025, Expires: 04/10/2026Start: 04-10-2025 End: 48-09-2697Jeeaj metabolic 2000 panel - Serum or PlasmaBasic Metabolic Panel Lab Routine 3-vessel coronary artery disease Cardiomyopathy, unspecified type (Multi) Diabetes mellitus of other type without complication, unspecified whether half-way insulinuse Expected: 04/10/2025, Ex[facility]: [facility] Work Phone: Comment on above:Expected: 04/10/2025, Expires: 04/10/2026Start: 04-10-2025 End: 17-23-7822NAH panel - Blood by Automated countCBC Lab Routine 3-vessel coronary artery disease Cardiomyopathy, unspecified type (Multi) Diabetes m ellitus of other type without complication, unspecified whether half-way insulin use Expected: 04/10/2025, Expires: 04/10/2026[facility] Work Phone: Comment on above:Expected: 04/10/2025, Expires: 04/10/2026Start: 04-10-2025 End: 51-80-2467Ipgyu 1996 panel - Serum or PlasmaLipid Panel Lab Routine Hyperlipidemia, unspecified hyperlipidemia type Expected: 04/10/2025, Expires: 04/10/2026[facility] Work Phone: Comment on above:Expected: 04/10/2025, Expires: 04/10/2026Start: 04-10-2025 End: 83-15-0144GL Heart TransthoracicTransthoracic Echo Complete Echocardiography Routine 3-vessel coronary artery disease Cardiomyopathy, unspecified type (Multi) Hyperlipidemia, unspecified hyperlipidemia type Diabetes mellitus of other type without complication, unspecified whether half-way insulin use Expected: 04/10/2025 (Approximate), Expires: 04/10/2027[facility] Service Area Work Phone: Comment on above:Expected: 04/10/2025 (Approximate), Expires: 04/10/2027Start: 04-07-2025 End: 35-54-4007Gsvhsiyl SupportNOMS NB OPHTComment on above:ArrivedStart: 03-07-2025 End: 79-69-0422Xhxodadv SupportNOMS NB OPHTComment on above:ArrivedStart: 02-22-2025 End: 54-48-6902Fereewe encounter procedureNOMS CWM FMComment on above: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 (HCC) (Primary Dx); Type 2 diabetes mellitus without complication, without long-term current use of insulin (HCC); Hyperlipidemia, unspecified hyperlipidemia type ; Primary hypertension ; Coronary artery disease involving nome coronary artery of nome heart without angina pectorisStart: 02-22-2025 End: 21-59-7127Gqkym metabolic 1998 panel - Serum or PlasmaBasic metabolic panel Lab Routine CKD stage 3b, GFR 30-44 ml/min ([facility] Expected: 02/22/2025 (Soheila roximate), Expires: 02/22/2026NONC HealthcareComment on above:Expected: 02/22/2025 (Approximate), Expires: 02/22/2026Start: 02-22-2025 End: 47-91-4598Axwncmarhmze/Creatinine panel in random UrineMicroalbumin / creatinine, urine ratio Lab Routine CKD stage 3b, GFR 30-44 ml/min ([facility] Expected: 02/22/2025 (Approximate), Expires: 02/22/2026NOMS HealthcareComment on above:Expected: 02/22/2025 (Approximate), Expires: 02/22/2026Start: 02-22-2025 End: 96-17-3743Zeugaukpvv.intact [Mass/volume] in Serum or PlasmaPTH, intact Lab Routine CKD stage 3b, GFR 30-44 ml/min ([facility] Expected: 02/22/2025 (Approximate), Expires: 02/22/2026NONC HealthcareComment on above:Expected: 02/22/2025 (Approximate), Expires: 02/22/2026Start: 02-22-2025 End: 05-83-9088Zsttekqyvb complete panel - UrineUrinalysis with reflex microscopic (clean catch) Lab Routine CKD stage 3b, GFR 30-44 ml/min ([facility] Expected: 02/22/2025 (Approximate), Expires: 02/22/2026NONC HealthcareComment on above:Expected: 02/22/2025 (Approximate), Expires: 02/22/2026Start: 02-22-2025 End: 49-78-2288WY KidneyUS renal complete Imaging Routine CKD stage 3b, GFR 30- 44 ml/min ([facility] Expected: 02/22/2025, Expires: 02/22/2026[facility] Work Phone: Comment on above:Expected: 02/22/2025, Expires: 02/22/2026Start: 02-21-2025 End: 47-36-9929Nrejqkwj SupportNOMS NB OPHTComment on above:ArrivedStart: 01-11-2025 End: 00-32-7677Lsuaucb encounter fabnzsfaq77/14/2025 6:00 PM EDT Office Visit [facility] [address] [place] [address] Francisca Quintana NP [address] [place] [address] NOMS CWM FMStart: 40-56-9605Mnlfbdprl vaccinationInfluenza Vaccine (#1)NOMS HealthcareComment on above:Postponed from 05/01/2024 (Patient Refused)Start: 12-13-2024 End: 94-19-7641Bmsgxfqy Otgjyxh8512/13/2024 9:15 AM EDT Clinical Support [facility] NB OPHT [address] [place] [address] Gregory Lujan, DO [address] [place] [address] [facility]rivedUT[facility]LEY [facility] NB OPHTComment on above:ArrivedStart: 12-06-2024 End: 20-46-9671Tdlzdtsv SupportNOMS NB OPHTComment on above:ArrivedStart: 12-01-2024 End: 84-04-9485Krmmarqxoosyi metabolic 2000 panel - Serum or PlasmaComprehensive metabolic panel Lab Routine Type 2 diabetes mellitus with hyperglycemia (CMS/HCC) Primary hypertension (CMS/HCC) Chronic kidney disease (CKD) stage G3a/A1, moderately decreased glomerular filtration rate (GFR) between 45-59 mL/min/1.73 square meter and albuminuria creatinine ratio less than 30 mg/g (H* (CMS/HCC) Expected: 12/01/2024 (Approximate), Expires: 10/20/2025[facility] Work Phone: Comment on above:Expected: 12/01/2024 (Approximate), Expires: 10/20/2025Start: 73-71-2591Lxicqgbxo for malignant neoplasm of colon Colorectal Cancer ScreeningNONC HealthcareComment on above:Postponed from 1958 (Patient Refused)Start: 11-30-2024 End: 66-74-5645Ymxpdpw encounter aokmbzpcr31/02/2025 5:00 PM EDT Office Visit [facility] [address] [place] [address] Francisca Quintana, SHIRLEY [address] [place] [address] BLAYNE MESSER FMStart: 26-90-1148Upazmtrj screeningDiabetes: Retinopathy ScreeningNONC HealthcareStart: 11-02-2024 End: 99-42-5600Wxxuxlad SupportNONC NB OPHTComment on above:ArrivedStart: 10-20-2024 End: 16-09-5335Reclnow encounter qpiazupnw34/20/2025 4:00 PM EST Office Visit [facility] [address] [place] [address] Enrique Arias, SOUND TECHNICIAN [address] [place] [address] ArrivedBLAYNE MESSER FMComment on above:ArrivedStart: 10-19-2024 End: 33-89-9908Vuifxtu encounter slyiiuubf56/19/2025 4:40 PM EST Office Visit [facility] [address] [place] [address] Enrique Arias, SOUND TECHNICIAN [address] [place] [address] BLAYNE MESSER FMStart: 10-11-2024 End: 67-72-5474Elszphme SupportNOMS OPHTComment on above:ArrivedStart: 89-76-8891Rkvko screening for proteinDiabetes: Urine Protein ScreeningNONC HealthcareStart: 09-27-2024 End: 75-81-3038Lijozsff Fygdgfb5409/27/2024 8:30 AM EST Clinical Support NOMMartha MACDONALD OPHT [address] [place] [phone] Gregory Lujan DO [address] [place] [address] ArrivedNONC NB OPHTComment on above:ArrivedStart: 09-20-2024 End: 90-24-5758Xiafwgn encounter procedureNOMS NB OPHTComment on above:Arrived Start: 89-36-2017Uevabohrs vaccinationInfluenza Vaccine (#1)[facility] Comment on above:Postponed from 05/01/2024 (Patient Refused)Start: 08-25-2024 Hemoglobin A1c measurementDiabetes: Hemoglobin B6VVKDO HealthcareStart: 08-19-2024 End: 69-75-2616Jvibskp aminotransferase [Enzymatic activity/volume] in Serum or Plasma by With P-5'-PAlanine Aminotransferase Lab Routine 3-vessel coronary artery disease Hyperlipidemia, unspecified hyperlipidemia type Expected: 08/19/2024 (Approximate), Expires: 08/19/2025[facility] Work Phone: Comment on above:Expected: 08/19/2024 (Approximate), Expires: 08/19/2025Start: 08-19-2024 End: 43-49-2153Qurikfpuz aminotransferase [Enzymatic activity/volume] in Serum or Plasma by With P-5'-PAspartate Aminotransferase Lab Routine 3-vessel coronary artery disease Hyperlipidemia, unspecifiedhyperlipidemia type Expected: 08/19/2024 (Approximate), Expires: 08/19/2025[facility] Work Phone: Comment on above:Expected: 08/19/2024 (Approximate), Expires: 08/19/2025Start: 08-19-2024 End: 28-65-9077Oduig metabolic 2000 panel - Serum or PlasmaBasic Metabolic Panel Lab Routine 3-vessel coronary artery disease Cardiomyopathy, unspecified type (Multi) Expected: 08/19/2024 (Approximate), Expires: [facility]/20[facility] Work Phone: Comment on above:Expected: 08/19/2024 (Approximate), Expires: 08/19/2025Start: 08-19-2024 End: 85-39-5027VIV panel - Blood by Automated countCBC Lab Routine 3-vessel coronary artery disease Cardiomyopathy, unspecified type (Multi) Expected: 08/19/2024 (Approximate), Expires: 08/19/2025[facility] Work Phone: Comment on above:Expected: 08/19/2024 (Approximate), Expires: 08/19/2025Start: 08-19-2024 End: 03-89-1659Kf-Center Sleep StudyIn-Center Sleep Study Sleep Center Routine Cardiomyopathy, unspecified type (Multi) Snoring Expected: 08/19/2024 (Approximate), Expires: 08/19/2025[facility] Work Phone: Comment on above:Expected: 08/19/2024 (Approximate), Expires: 08/19/2025Start: 08-19-2024 End: 11-51-6635Hjwtz 1996 panel - Serum or PlasmaLipid Panel Lab Routine 3- vessel coronary artery disease Hyperlipidemia, unspecified hyperlipidemiatype Expected: 08/19/2024 (Approximate), Expires: 08/19/2025[facility] Work Phone: Comment on above:Expected: 08/19/2024 (Approximate), Expires: 08/19/2025Start: 08-05-2024 End: 33-40-2489Hsajmej encounter clguxtxjg13/06/2024 11:45 AM EST Office Visit [facility] [address] [place] [id number] Gregory Lujan DO [address] [place] [address] ArrivedNOMS OPHTComment on above:ArrivedStart: 07-13-2024 End: 78-77-0168Tfixlku encounter /13/2024 4:00 PM EST Office Visit [facility] 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 edema, without long-term current use of insulin (CMS/HCC) Expected: 07/13/2024 (Approximate), Expires: 07/13/2025[facility] HealthcareComment on above:Expected: 07/13/2024 (Approximate), Expires: 07/13/2025Start: 07-13-2024 End: 85-06-6234Bhebupswclwve metabolic 2000 panel - Serum or PlasmaComprehensive metabolic panel Lab Routine Primary hypertension (CMS/HCC) 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 edema, without long-term current use of insulin (CMS/HCC) Expected: 07/13/2024 (Approximate), Expires: 07/13/2025NONC HealthcareComment on above:Expected: 07/13/2024 (Approximate), Expires: 07/13/2025Start: 07-13-2024 End: 48-05-8783Vwczgjcpdf A1c/Hemoglobin.total in BloodHemoglobin A1c Lab Routine 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 edema, without long-term current use of insulin (CMS/HCC) Expected: 07/13/2024 (Approximate), Expires: 07/13/2025 [facility] HealthcareComment on above:Expected: 07/13/2024 (Approximate), Expires: 07/13/2025Start: 07-13-2024 End: 18-78-8782Fgscs 1996 panel - Serum or PlasmaLipid panel Lab Routine Hyperlipidemia, unspecified hyperlipidemia type (CMS/HCC) Expected: 07/13/2024 (Approximate), Expires: 07/13/2025NONC HealthcareComment on above:Expected: 07/13/2024 (Approximate), Expires: 07/13/2025Start: 07-13-2024 End: 78-72-0572EUF W/REFLEX TO FT4TSH W/REFLEX TO FT4 Lab Routine Primary hypertension (CMS/HCC) Expected: 07/13/2024 (Approximate), Expires: 07/13/2025 [facility] Work Phone: Comment on above:Expected: 07/13/2024 (Approximate), Expires: 07/13/2025Start: 07-07-2024 End: 19-90-3608Kctugfj encounter oaiwluskg47/07/2024 8:40 AM EST Procedure Visit [facility] Gregory Lujan, DO [address] [place] [address] [address] [place] [id number] [facility] EXT DEPStart: 07-06-2024 End: 90-87-3302Vimsdqj encounter zhujjsdzh02/06/2024 4:00 PM EST Office Visit [facility] [address] [place] [phone] Enrique Arias, SOUND TECHNICIAN [address] [place] [address] [facility] CWYaritza FMStart: 07-05-2024 End: 40-28-9230Prxswbs encounter xnhzuibgk83/05/2024 11:10 AM EST Office Visit [facility] [address] [facility] [address] [place] [phone] Yohan Villalta MD [address] [facility] [address] [place] [address] [facility]: 06-02-2024 End: 24-68-5159Xrnwzdg encounter dnmfotivp67/03/2024 10:00 AM EDT Procedure Visit [facility] Gregory Lujan, DO [address] [place] [address] [facility] EXT DEPStart: 09-81-3985NTPEV- 19 Vaccine ( season)COVID-19 Vaccine ( season)[facility]: 75-61-1306Xqhddpxqs vaccinationInfluenza Vaccine (#1)[facility] HealthcareStart: 88-40-7859Pajevrjbw vaccinationInfluenza Vaccine (#1) [facility] HealthcareComment on above:Postponed from 05/01/2023 (Patient Refused) Start: 63-60-6062Oltglefmec A1c measurementDiabetes: Hemoglobin Q3GAJKI HealthcareStart: 12-02-2023 End: 23-94-7357Wiuvhbe encounter /03/2024 3:30 PM EDT Office Visit [facility] [address] [place] [phone] Shaikh Pearce MD [address] [place] [address] [facility] AYDE IMStart: 10-01-2023 End: 14-18-6739Yaxax 1996 panel - Serum or PlasmaLipid Panel Lab Routine Hyperlipidemia, unspecified hyperlipidemia type Expected: 10/01/2023 (Approx imate), Expires: 10/01/2024[facility] Service Area Work Phone: Comment on above:Expected: 10/01/2023 (Approximate), Expires: 10/01/2024Start: 60-11-1845AUA, Provider: Yohan Villalta, Status: Pen, Time: 10:50 AMFUV, Provider: Yohan Villalta, Status: Pen, Time: 10:50 AMMPGlencoe Regional Health ServicesFilmLoop [address] DO Work Phone: Start: 84-22-2641Mqdvgsusb vaccinationInfluenza Vaccine (#1)[facility]: 28-72-2993XQN, Provider: Yohan Villalta, Status: Pen, Time: 3:50 PMFUV, Provider: Yohan Villalta, Status: Pen, Time: 3:50 PMMPYakima Valley Memorial Hospital [employer], LLCFilmLoop 250 DO Work Phone: Start: 29-79-2783FVI High Risk: (Elderly (60+) or Population) (1 - Risk 60-74 years 1-dose series)RSV High Risk: (Elderly (60+) or Population) (1 - Risk 60-74 years 1-dose series)[facility]: 46-51-5543Tfjsmoeo specific antigen measurementPSA Prostate Cancer ScreeningThe [facility]: 2008 Zoster Vaccines (1 of 2)Zoster Vaccines (1 of 2)[facility]: 95-65-8495NQlV/Tdap/Td Vaccines (1 - Tdap)DTaP/Tdap/Td Vaccines (1 - Tdap)[facility]: 89-94-0051Wsekbgavhjqb vaccinationPneumococcal Vaccine (1 of 2 - PCV)[facility] Start: 15-74-6788Xrzap screening for proteinDiabetes: Urine Protein Screening [facility]: 92-81-1640Weqdgxdjc C screeningHepatitis C ScreeningUnMercy Health St. [facility]: 49-40-3181Zjtqvjij foot examinationDiabetes: Foot ExamUnMercy Health St. [facility] Medical Center: 1968 Glaucoma screeningDiabetes: Retinopathy ScreeningUnMercy Health St. [facility]: 76-32-1672Stnxephqaigf Vaccine: 65+ Years (1 - PCV)Pneumococcal Vaccine: 65+ Years (1 - PCV)[facility]: 1964 Pneumococcal Vaccine: 65+ Years (1 of 2 - PCV)Pneumococcal Vaccine: 65+ Years (1 of 2 - PCV)[facility]: 99-97-4866Sdhhxgotwvzg Vaccine: Pediatrics (0 to 5 Years) and At-Risk Patients (6 to 64 Years) (1 - PCV)Pneumococcal Vaccine: Pediatrics (0 to 5 Years) and At-Risk Patients (6 to 64 Years) (1 - PCV) [facility]: 79-90-9654YSY Vaccines (1 of 1 - Standard series)MMR Vaccines (1 of 1 - Standard series)[facility]: 66-04-1465ARFHS-19 Vaccine (#1)COVID-19 Vaccine (#1)[facility]: 76-72-8763Astoepijpq A1c measurementDiabetes: Hemoglobin T4YBatvqagnaxMercy Health St. Vincent Medical Center: 89-76-9761MUS screeningHIV ScreeningUnMercy Health St. [facility]: 20-87-5561Udtxa panelLipid PanelUnMercy Health St. [facility]: 23-47-9242Erpsatcvz for malignant neoplasm of colonUnMercy Health St. [facility]: 06-97-4174Ahbkh screening for proteinDiabetes: Urine Protein ScreeningUnMercy Health St. [facility]: 74-34-3287Coiqmw Adult PhysicalYearly Adult PhysicalUniversity Hospitals of ClevelandMicroalbumin/Creatinine panel in random UrineMicroalbumin / creatinine urine ratio Lab Routine Type 2 diabetes mellitus with hyperglycemia (CMS/HCC) Primary hypertension (CMS/HCC) Ordered: 10/20/2024[facility] Comment on above:Ordered: 10/20/2024 End: 75-33-3069[facility] Service Area Work Phone: Comment on above:Once for 1 Occurrences starting 04/26/2025 until 04/26/2025 Payers DatePayer CategoryPayerPolicy [id number] [place] Blue [employer] [id number] [facility] Member Subscriber Plan / Payer (Effective 2018- Present) Name: Gian Sandoval Relation to Subscriber: Self Name: Gian Sandoval Payer ID: [id number] (NAIC) Type: Not on file Address: [id number] [place] [id number] [id number] [id number] 2.0.1.276660.3.57[id number] 2.0.1.459568.3.579.[id number] 2.0.1.567647.3.57[id number] 2.16.840.1.327755.3.57[id number] 2.16840.1.436577.3.579.2.7[id number] 2.16840.1.037732.3.579.2.[id number] 2.840.1.058112.3.579.2.52138-04-3059Lmfiayr3995140 2.16840.1.748926.3.57[id number] 2.0.1.845197.3.579.[id number] 2.0.1.657042.3.579.2.[id number] 2.0.1.436163.3.579.2.8[id number] 2.0.1.654833.3.579.[id number] 2.0.1.589893.3.579.2.9[id number] 2.0.1.860354.3.579.2.0[id number] 2.0.1.904673.3.579.2.500[id number] 2.0.1.990575.3.579.2.[id number] 2.840.1.670870.3.579.2.6[id number] 2.840.1.256705.3.579.2.8[id number] 2.16.840.1.558687.3.579.2.737610-47-0490Ahbnbbo7141912 2.16.840.1.588174.3.579.2.575849-22-8239Poqdnat0201940 2.16.840.1.534302.3.579.2.188766-84-6271Gslkvut6780236 2.16.840.1.899149.3.579.2.846826-33-0573Govxvrf0318682 2.16.840.1.093466.3.579.2.612050-32-7374Biotdir4284929 2.16840.1.855824.3.579.2.661660-30-7363Qmirwim7037611 2.840.1.132718.3.579.2.397526-68-6234Oimbamf6680534 2.16.840.1.341161.3.579.2.482451-73-4710Xtjqwyu1979651 2.16.840.1.198300.3.579.2.067437-86-8633Jwyrnvz7859193 2.840.1.198144.3.579.2.732500-26-4356Coizadx3220546 2.16.840.1.712565.3.579.2.502827-06-0417Nkxmxjn8577464 2.16.840.1.217772.3.579.2.993928-67-0357Itncefx6068274 2.16.840.1.520525.3.579.2.042748-82-8358Dpdmbxh1825556 2.16.840.1.930773.3.579.2.8418Llipozn37510437 2.16.840.1.566127.3.579.2.531 Social History DateTypeDetailFacilityStart: 12-24-2021 End: 75-71-3217Aipafrh smoking status NHISEx-smoker (finding)[facility] Hospitaltart: 38-24-9359Xry Assigned At BirthMalUniversity Hospitals Parma Medical Centertart: 10-01-2023 End: 17-87-0301Hrkvaa smokerFormer smokerMP-[facility] DO Work Phone: Comment on above:QUIT IN 1999;Start: 09-02-2023 End: 49-90-1786Mjqwqun smoking status NHISNever smoked tobaccoUnMercy Health [facility]field Hospital Work Phone: Start: 10-01-2023 End: 72-45-5319Omoohrv use and exposureSmokeless tobacco non-userUnMercy Health [facility] Hospital Work Phone: Start: 10-01-2023 End: 31-53-6686Rabpchl intakeLifetime non-drinker (finding)[facility] Work Phone: Start: 10-01-2023 End: 82-47-7165Behachb use panelUnMercy Health Fairfield Hospital Work Phone: Start: 17-47-2799Doq Assigned At BirthNot on file [facility] Work Phone: Start: 09-21-2023 End: 22-69-7724Uoulstge to SARS-CoV-2 (event)Not sureUnMercy Health Fairfield HospitalHistory of tobacco useCurrent smokerNOMS HealthcareHistory of tobacco useCigarette SmokerNOMS HealthcareHistory of tobacco usePassive smokerNOMS HealthcareStart: 08-19-2024 End: 03-83-6379Auxnxvguh beverage intakeEx-drinker (finding)[facility] Work Phone: Start: 99-29-6239WecSgtrBvpafrzkat [facility] Procedure CodeEquipment CodeEquipment Original TextEquipment IdentifierDates1 each by Other route if [id number]: 67-25-2371HCE TO CHECK FASTING BLOOD SUGAR EVERY 12 [id number]: 12-21-2023 End: 84-48-7600NBY TO CHECK FASTING BLOOD SUGAR EVERY 12 [id number]: 08-02-2024 End: 61-71-6029Myico a day. Use as [id number]: 03-06-2025 Clinical Notes 10-01-2023 to 05-31-2025 Note Date & PcbeDvyhFcsvabex33-51-4912 NoteTime Out 05/31/2025. 8:57 AM. Confirmed correct patient, procedure, site, and patient consented. Anesthesia Topical anesthesia was used. Anesthetic medications included Lidocaine 2%, Proparacaine 0.5%. Procedure Preparation included 5% betadine to ocular surface, eyelid speculum. Injection: 1.25 mg Bevacizumab 1.25 MG/0.05ML Route: Intravitreal, Site: Left Eye [facility]: [address]-7, Lot: [id number], Expiration date: 07/18/2025 Post-op Post injection exam [...] with increased pain, redness, decreased vision or concerns.[facility] InstituteOgqpyxhjjj88-97-9152 History of Present illness Narrative* Gregory Lujan, DO - 05/31/2025 8:15 AM EDT Images from the original note were not included. 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 8:57 AM. Confirmed correct patient, procedure, site, and patient consented. Anesthesia Topical anesthesia was used. Anesthetic medications included Lidocaine 2%, Proparacaine 0.5%. Procedure Preparation included 5% betadine to ocular surface, eyelid speculum. Injection: 1.25 mg Bevacizumab 1.25 MG/0.05ML Route: Intravitreal, Site: Left Eye [facility]: [address]-7, Lot: [id number], Expiration date: 07/18/2025 Post-op Post injection exam [...] decreased vision or concerns. documented in this encounterThe Rehabilitation InstituteGdepcnncyb70-24-2026 NoteTime Out 05/26/2025. 11:38 AM. Confirmed correct patient, procedure, site, and patient consented. Anesthesia Topical anesthesia was used. Anesthetic medications included Lidocaine 2%, Proparacaine 0.5%. Procedure Preparation included 5% betadine to ocular surface, eyelid speculum. A 30 gauge needle was used. Injection: 1.25 mg Bevacizumab 1.25 MG/0.05ML Route: Intravitreal, Site: Right Eye [facility]: [id number], Lot: [id number], Expiration date: 07/18/2025 Post-op Post injection exam [...] increased pain, redness, decreased vision or concerns. [facility] InstituteNdzroefmvf66-65-9818 NoteRight Eye Quality was good. Scan locations included subfoveal. Progression has improved. Findings include abnormal foveal contour, epiretinal membrane. Left Eye Quality was good. Scan locations included subfoveal. Progression has improved. Findings include abnormal foveal contour, epiretinal membrane.[facility] InstituteUwmhfhantc64-60-4741 History of Present illness Narrative* Gregory Lujan, DO - 05/26/2025 10:45 AM EDT Images from the original note were not included. Assessment/Plan Diagnoses and all orders for this visit: 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 (HCC) - OCT, Retina - [...] Findings include abnormal foveal contour, epiretinal membrane. Linked Images Intravitreal Injection, Pharmacologic Agent - OD - Right Eye Time Out 05/26/2025. 11:38 AM. Confirmed correct patient, procedure, site, and patient consented. Anesthesia Topical anesthesia was used. Anesthetic medications included Lidocaine 2%, Proparacaine 0.5%. Procedure Preparation included 5% betadine to ocular surface, eyelid speculum. A 30 gauge needle was used. Injection: 1.25 mg Bevacizumab 1.25 MG/0.05ML Route: Intravitreal, Site: Right Eye [facility]: [address]-2, Lot: [id number], Expiration date: 07/18/2025 Post-op Post injection exam [...] decreased vision or concerns. documented in this encounterThe Rehabilitation InstituteLmaqnibrjo26-00-4290 History of Present illness Narrative* MAXIM ODOM - 04/25/2025 3:40 PM EDT Pt states that when he would take the metformin in the am with the farxiga however his sugars woulddrop to 88 and he would start having the shakes and not feel good, pt is now taking the farxiga in the am, 1 metformin in the afternoon and 1 metformin in the evening/bedtime-this has been better forhim 135 FG in am he will take the metformin at lunch time in it is already 110 he will not take the metformin Pt works first shift he typically skips eating when working and waits until he gets off work he only eats at work if he feels funny Pt takes aspirin 81 (chewable) in the AM Pt takes omega-3 he takes 1 in the AM and 1 in the evening/bedtime Pt takes glimepiride 2mg tab at lunch time with 1 metformin Pt takes metoprolol in the evening with his evening metformin Pt takes the rosuvastatin and valsartan in the AM * Francisca Youngcarlos, SOUND TECHNICIAN - 04/25/2025 3:40 PM EDT Images from the original note were not included. Gian Sandoval is a 64 y.o. male presents with chief complaint of No chief complaint on file. 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 He has type 2 diabetes mellitus. His disease course has been stable. Hypoglycemia symptoms include tremors. Pertinent negatives for hypoglycemia include no dizziness, nervousness/anxiousness or seizures. Pertinent negatives for diabetes include no blurred vision, no foot paresthesias, no polydipsia, no polyphagia, no polyuria, no weakness and no weight loss. There are no hypoglycemic complications. Symptoms are improving. There are no diabetic complications. Risk factors for coronary artery disease include diabetes mellitus, dyslipidemia, hypertension, male sex, obesity and sedentary lifestyle. Current diabetic treatment includes oral agent (triple therapy). He is compliant with treatment all of the time. His overall blood glucose range is 110-130 mg/dl. An TC inhibitor/angiotensin II receptor evin is being taken. He does not see a assistant fitness manager.Eye exam is current. Hypertension This is a chronic problem. The current episode started more than 1 year ago. The problem is unchanged. The problem is controlled. Pertinent negatives include no blurred vision, palpitations, peripheral edema or shortness of breath. There are no associated agents to hypertension. Risk factors for coronary artery disease include diabetes mellitus, dyslipidemia, male gender and obesity. Past treatmen ts include angiotensin blockers and beta blockers. SUBJECTIVE: MEDICATIONS: Current Outpatient Medications Medication Instructions aspirin 81 mg, Oral, Daily RT dapagliflozin (FARXIGA) 10 mg, Oral, Daily fish oil concentrate 2 g, Oral, 2 times daily glimepiride (AMARYL) 2 mg, Oral, Daily before breakfast glucose blood (True Metrix Blood Glucose Test) test strip Twice a day. Use as instructed ketorolac (Acular) 0.4 % ophthalmic solution 1 drop, Both Eyes, 4 times daily metFORMIN (GLUCOPHAGE) 500 mg, Oral, 2 times daily with meals metoprolol succinate XL (TOPROL-XL) 50 mg, Oral, Daily, Do not crush or chew. nitroglycerin (NITROSTAT) 0.4 mg, Sublingual, Every 5 min PRN rosuvastatin (CRESTOR) 20 mg, Oral, Nightly valsartan (DIOVAN) 80 mg, Oral, Daily ALLERGIES: Allergies Allergen Reactions Glipizide Other Reaction(s): GI Upset REVIEW OF SYMPTOMS: Review of Systems Constitutional: Negative for activity change, appetite change, unexpected weight change and weight loss. HENT: Negative for ear pain, nosebleeds, sneezing, trouble swallowing and voice change. Eyes: Negative for blurred vision, pain, discharge and visual disturbance. Respiratory: Negative for apnea, chest tightness, shortness of breath and wheezing. Cardiovascular: Negative for palpitations and leg swelling. Gastrointestinal: Negative for abdominal distention, blood in stool, constipation and diarrhea. Genitourinary: Negative for decreased urine volume, difficulty urinating, dysuria and hematuria. Skin: Negative for color change. Neurological: Positive for tremors. Negative for dizziness, seizures and weakness. Psychiatric/Behavioral: Negative for agitation, decreased concentration, hallucinations, self-injury and suicidal ideas. The patient is not nervous/anxious. Hematological: Negative for adenopathy. Does not bruise/bleed easily. Endocrine: Negative for cold intolerance, heat intolerance, polydipsia, polyphagia and polyuria. Allergic/Immunologic: Negative for environmental allergies and food allergies. PAST MEDICAL HISTORY Past Medical History: Diagnosis Date Cataract Diabetes mellitus (HCC) Diabetic retinopathy (HCC) Past Surgical History: Procedure Laterality Date CATARACT EXTRACTION Bilateral 2023 Dr. Lujan family history includes Cataracts in his father; Diabetes in his mother; Hypertension in his mother. OBJECTIVE: Visit Vitals BP 118/80 (BP Location: Left arm, Patient Position: Sitting, BP Cuff Size: Adult long) Pulse 90 Temp 97.8 F (Temporal) Resp 18 Wt 201 lb 9.6 oz SpO2 96% BMI 34.60 kg/m Smoking Status Former BSA 2.03 m Physical Exam Vitals and nursing note reviewed. Constitutional: Appearance: Normal appearance. HENT: Head: Normocephalic. Right Ear: External ear [...] are normal. Palpations: Abdomen is soft. Musculoskeletal: Cervical back: Neck supple. Right lower leg: No edema. Left lower leg: No edema. Skin: General: Skin is warm and dry. Capillary Refill: Capillary refill takes 2 to 3 seconds. Neurological: General: No focal deficit present. Mental Status: He is alert. Psychiatric: Mood and Affect: Mood normal. Behavior: Behavior normal. Thought Content: Thought content normal. Judgment: Judgment normal. ASSESSMENT AND PLAN: Follow up in about 2 months (around 06/25/2025) for Recheck. Problem List Items Addressed This Visit Irregular heart rate Relevant Medications metoprolol succinate XL (Toprol-XL) 50 MG 24 hr tablet Type 2 diabetes mellitus with hyperglycemia (HCC) Relevant Medications dapagliflozin (Farxiga) 10 MG aspirin 81 MG EC tablet metFORMIN (Glucophage) 500 MG tablet Hyperlipemia Relevant Medications fish oil concentrate (Galliano-3) 1000 MG capsule rosuvastatin (Crestor) 20 MG tablet Coronary artery disease involving nome coronary artery of nome heart without angina pectoris Statin, asa, arb, b evin Reviewed cardiology notes from 04/24visit Relevant Medications valsartan (Diovan) 80 MG tablet Primary hypertension - Primary Please check blood pressure daily and record DASH diet Limit caffeine Take medication as directed Contact office if chest pain, pressure, dizziness, shortness of breath, swelling legs Recommend slow position changes Current meds: b evin, and arb Type 2 diabetes mellitus without complication, without [...] dinner time with largest meal of day Relevant Medications dapagliflozin (Farxiga) 10 MG aspirin 81 MG EC tablet glimepiride (Amaryl) 2 MG tablet CKD stage 3b, GFR 30-44 ml/min ([facility]) Reviewed US Farxiga has now normalized the Cr and GFR Relevant Medications dapagliflozin (Farxiga) 10 MG * Francisca Quintana NP - 04/25/2025 7:03 AM EDTAssociated Problem(s): Type 2 diabetes mellitus without complication, without long-term current useof insulin (HCC) Check blood sugars daily, notify [...] dinner time with largest meal of day * Francisca Quintana NP - 04/25/2025 7:03 AM EDTAssociated Problem(s): CKD stage 3b, GFR 30-44 ml/min ([facility]) Reviewed US Leonila has now normalized the Cr and GFR * Francisca Quintana NP - 04/25/2025 7:02 AM EDTAssociated Problem(s): Coronary artery disease involving nome coronary artery of nome heart without angina pectoris Statin, asa, arb, b evin Reviewed cardiology notes from 04/24visit * Francisca Quintana NP - 04/25/2025 7:00 AM EDTAssociated Problem(s): Primary hypertension Please check blood pressure daily and record DASH diet Limit caffeine Take medication as directed Contact office if chest pain, pressure, dizziness, shortness of breath, swelling legs Recommend slow position changes Current meds: b evin, and arb documented in this encounterThe Rehabilitation [id number] NoteTime Out 04/14/2025. 11:21 AM. Confirmed correct patient, procedure, site, and patient consented. Anesthesia Topical anesthesia was used. Anesthetic medications included Lidocaine 2%, Proparacaine 0.5%. Procedure Preparation included 5% betadine to ocular surface, eyelid speculum. Injection: 1.25 mg Bevacizumab 1.25 MG/0.05ML Route: Intravitreal, Site: Left Eye [facility]: [address]-9, Lot: [id number], Expiration date: 07/18/2025 Post-op Post injection exam [...] with increased pain, redness, decreased vision or concerns.The Rehabilitation [id number] History of Present illness Narrative* Gregory Lujan, - 04/14/2025 10:30 AM EDT Images from the original note were not [...] 1.25 MG/0.05ML Route: Intravitreal, Site: Left Eye [facility]: [address]-2, Lot: [id number], Expiration date: 07/18/2025 Post-op Post injection exam [...] decreased vision or concerns. documented in this encounterThe Rehabilitation [id number] History of Present illness Narrative* Yohan Villalta MD - 04/10/2025 1:50 PM EDT HPI Patient is in the office for follow-up for ischemic heart disease and severe two-vessel CAD. He hasischemic cardiomyopathy ejection fraction 45%. Since he was [...] mature nature of collaterals andejection fraction 45%. Viability study time out to be negative therefore, revascularization with surgery was not recommended. We will continue aggressive modification risk factor for CAD. 2-ischemic cardiopathy stage C functional class II, he is currently on beta- vein therapy and valsartan, ejection fraction historically has been 45%. Follow-up echocardiogram is scheduled 3-type II diabetes on medical therapy managed by PCP, no recent lab data were available for my review. Reminded patient to continue to work on controlling his weight, low carbohydrate and low caloriediet. 4-hyperlipidemia on rosuvastatin, lipid profile is needed [...] for up to 3 doses total. omega 2-wch-ikn-fish oil (Fish OiL) 1,000 (120-180) mg capsule [...] of other type without complication, unspecified whether half-way insulin use Transthoracic Echo Complete CBC Basic Metabolic Panel CBC Basic Metabolic Panel 5. Never smoked any substance 6. BMI 36.0-36.9,adult Scribe Attestation By signing my name below, ISujata RN , Scribe attest that this documentation has been prepared under the direction and in the presence of Yohan Villalta MD. Provider Attestation - Scribe documentation All medical record entries made by the Scribe were at my direction and personally dictated by me. Ihave reviewed the chart and agree that the record accurately reflects my personal performance of the history, physical exam, discussion and plan. [facility] Work Phone: [phone]) 863-809208-11-2025 Instructions* Patient Instructions* Sujata Bermudez RN - 04/10/2025 1:50 PM [...] Provided instructions on exercise. documented in this [facility] Work Phone: [phone]) 356-494808-08-2025 NoteTime Out 04/07/2025. 11:24 AM. Confirmed correct patient, procedure, site, and patient consented. Anesthesia Topical anesthesia was used. Anesthetic medications included Lidocaine 2%, Proparacaine 0.5%. Procedure Preparation included 5% betadine to ocular surface, eyelid speculum. A 30 gauge needle was used. Injection: 1.25 mg Bevacizumab 1.25 MG/0.05ML Route: Intravitreal, Site: Right Eye [facility]: [address]-1, Lot: [id number], Expiration date: 05/08/2025 Post-op Post injection exam [...] increased pain, redness, decreased vision or concerns. [facility] [id number] NoteRight Eye Quality was good. Scan locations included subfoveal. Progression has been stable. Findings include abnormal foveal contour. Left Eye Quality was good. Scan locations included subfoveal. Progression has been stable. Findings include abnormal foveal contour, epiretinal membrane. Notes Increased macular volume both eyes (OU). Stable.[facility] [id number] History of Present illness Narrative* Gregory Lujan, - 04/07/2025 10:30 AM EDT Images from the original note were not included. Assessment/Plan Diagnoses and all orders for this visit: 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 (HCC) - OCT, Retina - [...] MG/0.05ML Route: Intravitreal, Site: Right Eye [facility]: [address]-9, Lot: [id number], Expiration date: 05/08/2025 Post-op Post injection exam [...] decreased vision or concerns. documented in this encounterThe Rehabilitation [id number] NoteTime Out 03/07/2025. 10:30 AM. Confirmed correct patient, procedure, site, and patient consented. Anesthesia Topical anesthesia was used. Anesthetic medications included Lidocaine 2%, Proparacaine 0.5%. Procedure Preparation included 5% betadine to ocular surface, eyelid speculum. Injection: 1.25 mg Bevacizumab 1.25 MG/0.05ML Route: Intravitreal, Site: Left Eye [facility]: [address]-2, Lot: [id number], Expiration date: 04/02/2025 Post-op Post injection exam [...] with increased pain, redness, decreased vision or concerns.[facility] [id number] History of Present illness Narrative* Gregory Lujan, DO - 03/07/2025 10:00 AM EDT Images from the original note were not [...] 1.25 MG/0.05ML Route: Intravitreal, Site: Left Eye [facility]: [address]-3, Lot: [id number], Expiration date: 04/02/2025 Post-op Post injection exam [...] decreased vision or concerns. documented in this encounterThe Rehabilitation [id number] History of Present illness Narrative* Francisca Quintana NP - 02/22/2025 6:43 PM EDTAssociated Problem(s): Diabetes mellitus type 2 with complications (HCC) HTN, Retinopathy, nephropathy * Francisca Quintana NP - 02/22/2025 6:43 PM EDTAssociated Problem(s): CKD stage 3b, GFR 30-44 ml/min ([facility]) Will see if can get SGLT 2 or possible GLP 1 med Check US check other labs for kidneys * MAXIM ODOM - 02/22/2025 6:00 PM EDT Pt last seen in office 10/20/24 IRREGULAR [...] to cost $1800 Glucose ranges between 126-130 * Francisca Quintana NP - 02/22/2025 6:00 PM EDT Images from the original note were not included. Gian Sandoval is a 64 y.o. male presents with chief complaint of Diabetes HPI: Diabetes He presents for his follow-up diabetic visit. He has type 2 diabetes mellitus. His disease course has been worsening. There are no hypoglycemic associated symptoms. Pertinent negatives for hypoglycemia include no dizziness, nervousness/anxiousness, seizures or tremors. Associated symptoms include po lydipsia, polyuria and visual change. Pertinent negatives for [...] taken. He does not see a assistant fitness manager.Eye exam is current. Hypertension This is a [...] includes retinopathy. There is no history of CAD/[place], CVA, heart failure or PVD. SUBJECTIVE: MEDICATIONS: [...] Laterality Date CATARACT EXTRACTION Bilateral 2023 Dr. Lujan family history includes Cataracts in his father; [...] prn dose changes Coronary artery disease involving nome coronary artery of nome heart without angina pectoris Statin, asa, arb, [...] associated with type2 diabetes mellitus (HCC) - Primary Continue w opth. Recommend good diabetes control Type 2 diabetes mellitus without complication, without long-term current use of insulin ([facility]) Check blood sugars daily, notify if <70 [...] (Completed) CKD stage 3b, GFR 30-44 ml/min ([facility] Will see if can get SGLT 2 or possible GLP 1 med Check US check other labs for kidneys Relevant Orders US renal complete Basic metabolic panel PTH, intact Urinalysis with reflex microscopic (clean catch) Microalbumin / creatinine, urine ratio Diabetes mellitus type 2 with complications ([facility]) HTN, Retinopathy, nephropathy * Francisca Quintana NP - 02/22/2025 7:32 AM EDTAssociated Problem(s): Coronary artery disease involving nome coronary artery of nome heart without angina pectoris Statin, asa, arb, b evin * Francisca Quintana NP - 02/22/2025 7:32 AM EDTAssociated Problem(s): Primary hypertension Please check blood pressure daily and record DASH diet Limit caffeine Take medication as directed Contact office if chest pain, pressure, dizziness, shortness of breath, swelling legs Recommend slow position changes Current meds: b evin, and arb * Francisca Quintana NP - 02/22/2025 7:31 AM EDTAssociated Problem(s): Hyperlipemia On statin and fish oil Check labs yearly and prn dose changes * Francisca Quintana NP - 02/22/2025 7:31 AM EDTAssociated Problem(s): Type 2 diabetes mellitus without complication, without long-term current useof insulin (HCC) Check blood sugars daily, notify [...] metformin A1c: 7.5% 02/22/25 6.7% on 10/07/24 * Francisca Quintana NP - 02/22/2025 7:30 AM EDTAssociated Problem(s): Moderate nonproliferative diabetic retinopathy of both eyes with macular edema associated with type 2 diabetes mellitus (HCC) Continue w opth. Recommend good diabetes control documented in this [facility]06-25-2025 Instructions* Patient Instructions* Francisca Quintana NP - 02/22/2025 6:00 PM [...] fabian plus 3 device documented in this [facility]06-24-2025 NoteTime Out 02/21/2025. 10:12 AM. Confirmed correct patient, procedure, site, and patient consented. Anesthesia Topical anesthesia was used. Anesthetic medications included Lidocaine 2%, Proparacaine 0.5%. Procedure Preparation included 5% betadine to ocular surface, eyelid speculum. A 30 gauge needle was used. Injection: 1.25 mg Bevacizumab 1.25 MG/0.05ML Route: Intravitreal, Site: Right Eye [facility]: [address]-1, Lot: [id number], Expiration date: 04/02/2025 Post-op Post injection exam [...] increased pain, redness, decreased vision or concerns. [facility] [id number] NoteRight Eye Quality was poor. Scan locations included subfoveal. Progression has been stable. Findings include abnormal foveal contour, intraretinal fluid. Left Eye Quality was poor. Scan locations included subfoveal. Progression has been stable. Findings include abnormal foveal contour, intraretinal fluid.[facility] [id number] History of Present illness Narrative* Gregory Lujan, DO - 02/21/2025 9:30 AM EDT Images from the original note were not included. Assessment/Plan Diagnoses and all orders for this visit: 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 (HCC) - OCT, Retina - [...] MG/0.05ML Route: Intravitreal, Site: Right Eye [place]: [address]-7, Lot: [id number], Expiration date: 04/02/2025 Post-op Post injection exam [...] decreased vision or concerns. documented in this encounterThe Rehabilitation InstituteKpyelsprwt09-68-2000 NoteTime Out 01/17/2025. 10:45 AM. Confirmed correct patient, procedure, site, and patient consented. Anesthesia Topical anesthesia was used. Anesthetic medications included Lidocaine 2%, Proparacaine 0.5%. Procedure Preparation included 5% betadine to ocular surface, eyelid speculum. Injection: 1.25 mg Bevacizumab 1.25 MG/0.05ML Route: Intravitreal, Site: Left Eye [facility]: [address]-9, Lot: [id number], Expiration date: 04/02/2025 Post-op Post injection exam [...] with increased pain, redness, decreased vision or concerns.[facility] InstituteLhqanciqmc86-62-0010 History of Present illness Narrative* Gregory Lujan, DO - 01/17/2025 9:45 AM EDT Images from the original note were not included. Assessment/Plan Diagnoses and all orders for this visit: 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 (CMS/HCC) - Intravitreal Injection, Pharmacologic Agent - OS [...] 1.25 MG/0.05ML Route: Intravitreal, Site: Left Eye [facility]: [address]-6, Lot: [id number], Expiration date: 04/02/2025 Post-op Post injection exam [...] decreased vision or concerns. documented in this encounterThe Rehabilitation [id number] NoteTime Out 01/10/2025. 9:49 AM. Confirmed correct patient, procedure, site, and patient consented. Anesthesia Topical anesthesia was used. Anesthetic medications included Lidocaine 2%, Proparacaine 0.5%. Procedure Preparation included 5% betadine to ocular surface, eyelid speculum. A 30 gauge needle was used. Injection: 1.25 mg Bevacizumab 1.25 MG/0.05ML Route: Intravitreal, Site: Right Eye [facility]: [address]-0, Lot: [id number], Expiration date: 07/18/2025 Post-op Post injection exam [...] increased pain, redness, decreased vision or concerns. [facility] [id number] NoteRight Eye Quality was good. Scan locations included subfoveal. Progression has improved. Findings include epiretinal membrane, intraretinal fluid. Left Eye Quality was good. Scan locations included subfoveal. Progression has been stable. Findings include epiretinal membrane, intraretinal fluid.[facility] 01-10-2025 History of Present illness Narrative* Gregory Lujan, - 01/10/2025 8:45 AM EDT Images from the original note were not included. Assessment/Plan Diagnoses and all orders for this visit: 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 ([facility]) - OCT, Retina - OU - Both [...] 1.25 MG/0.05ML Route: Intravitreal, Site: Right Eye [facility]: [address]-1, Lot: [id number], Expiration date: 07/18/2025 Post-op Post injection exam [...] decreased vision or concerns. documented in this [facility]04-15-2025 NoteTime Out 12/13/2024. 9:31 AM. Confirmed correct patient, procedure, site, and patient consented. Anesthesia Topical anesthesia was used. Anesthetic medications included Lidocaine 2%, Proparacaine 0.5%. Procedure Preparation included 5% betadine to ocular surface, eyelid speculum. Injection: 1.25 mg Bevacizumab 1.25 MG/0.05ML Route: Intravitreal, Site: Left Eye NDC: [address]-6, Lot: [id number], Expiration date: 01/31/2025 Post-op Post injection exam [...] with increased pain, redness, decreased vision or concerns.[facility] [id number] History of Present illness Narrative* Gregory Lujan, DO - 12/13/2024 9:15 AM EDT Images from the original note were not included. Assessment/Plan Diagnoses and all orders for this visit: 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 ([facility]) - Intravitreal Injection, Pharmacologic Agent - OS [...] 1.25 MG/0.05ML Route: Intravitreal, Site: Left Eye [place]: [address]-5, Lot: [id number], Expiration date: 01/31/2025 Post-op Post injection exam [...] decreased vision or concerns. documented in this encounterThe Rehabilitation [id number] NoteRight Eye Quality was good. Scan locations included subfoveal. Progression has been stable. Findings include abnormal foveal contour, epiretinal membrane, intraretinal fluid. Left Eye Quality was good. Scan locations included subfoveal. Progression has been stable. Findings include abnormal foveal contour, epiretinal membrane, intraretinal fluid.[facility] [id number] NoteTime Out 12/06/2024. 10:24 AM. Confirmed correct patient, procedure, site, and patient consented. Anesthesia Topical anesthesia was used. Anesthetic medications included Lidocaine 2%, Proparacaine 0.5%. Procedure Preparation included 5% betadine to ocular surface, eyelid speculum. A 30 gauge needle was used. Injection: 1.25 mg Bevacizumab 1.25 MG/0.05ML Route: Intravitreal, Site: Right Eye [facility]: [address]-6, Lot: [id number], Expiration date: 01/31/2025 Post-op Post injection exam [...] increased pain, redness, decreased vision or concerns. [facility] [id number] History of Present illness Narrative* Gregory Lujan DO - 12/06/2024 9:30 AM EDT Images from the original note were not [...] symptoms include glare and haloes. Treatments tried i nclude artificial tears and glasses. Response to treatment was mild improvement. Comments Pt returns for continued maintenance treatment of DME both eyes (OU). Vision is stable since last seen. Doesn't feel a big difference since last exam/treatment. Receives Avastin. Here for continued treatment with Avastin right eye (OD) for diabetes mellitus (DM). Last edited by Gregory Lujan DO on 12/06/2024 9:42 AM. Current Outpatient [...] Daily 90 tablet 0 fish oil concentrate (Galliano-3) 1000 MG capsule Take 2 capsules (2 [...] FASTING BLOOD SUGAR EVERY 12 HOURS 200 strip1 valsartan (Diovan) 80 MG tablet Take 1 tablet (80 mg) by mouth Daily 90 tablet 0 No current facility-administered medications for this visit. (Other) Past Medical History: Diagnosis Date Cataract Diabetes mellitus ([facility]) Diabetic retinopathy ([facility]) Allergies Allergen Reactions Glipizide Other Reaction(s): GI [...] Normal Normal Refraction Final Rx Sphere Cylinder [place] [facility] Add Right -0.75 -0.75 100 20/40+ +2.75 Left -0.25 -1.00 060 20/40- +2.75 Expiration Date: 12/06/2025 Assessment/Plan Diagnoses and all orders for this visit: 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 ([facility]) - OCT, Retina - OU - Both [...] 1.25 MG/0.05ML Route: Intravitreal, Site: Right Eye [facility]: [address]-9, Lot: [id number], Expiration date: 01/31/2025 Post-op Post injection exam [...] laser capsulotomy, they are to notify their meal room hand promptly if they have a significant change in symptoms, such as flashes of light (photopsia), an increase in floaters, loss of visual field or decrease in visual acuity. documented in this [facility]03-11-2025 NoteTime Out 11/08/2024. 1:33 PM. Confirmed correct patient, procedure, site, and patient consented. Anesthesia Topical anesthesia was used. Anesthetic medications included Lidocaine 2%, Proparacaine 0.5%. Procedure Preparation included 5% betadine to ocular surface, eyelid speculum. Injection: 1.25 mg Bevacizumab 1.25 MG/0.05ML Route: Intravitreal, Site: Left Eye [facility]: [address]-7, Lot: [id number], Expiration date: 07/18/2025 Post-op Post injection exam [...] with increased pain, redness, decreased vision or concerns.[facility] [id number] History of Present illness Narrative* Gregory Lujan, DO - 11/08/2024 1:30 PM EDT Images from the original note were not included. Assessment/Plan Diagnoses and all orders for this visit: 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 (CMS/HCC) - Intravitreal Injection, Pharmacologic Agent - OS [...] 1.25 MG/0.05ML Route: Intravitreal, Site: Left Eye [facility]: [address]-2, Lot: [id number], Expiration date: 07/18/2025 Post-op Post injection exam [...] decreased vision or concerns. documented in this [facility]03-05-2025 NoteTime Out 11/02/2024. 9:10 AM. Confirmed correct patient, procedure, site, and patient consented. Anesthesia Topical anesthesia was used. Anesthetic medications included Lidocaine 2%, Proparacaine 0.5%. Procedure Preparation included 5% betadine to ocular surface, eyelid speculum. A 30 gauge needle was used. Injection: 1.25 mg Bevacizumab 1.25 MG/0.05ML Route: Intravitreal, Site: Right Eye [facility]: [address]-9, Lot: [id number], Expiration date: 07/18/2025 Post-op Post injection exam [...] increased pain, redness, decreased vision or concerns. [facility] InstituteEkjriiegxr84-35-0126 NoteRight Eye Quality was good. Scan locations included subfoveal. Progression has improved. Findings include abnormal foveal contour, intraretinal fluid. Left Eye Quality was good. Scan locations included subfoveal. Progression has improved. Findings include abnormal foveal contour, intraretinal fluid.[facility] [id number] History of Present illness Narrative* Gregory Lujan, DO - 11/02/2024 8:15 AM EST Images from the original note were not included. Assessment/Plan Diagnoses and all orders for this visit: 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 ([facility]) - Intravitreal Injection, Pharmacologic Agent - OD [...] 1.25 MG/0.05ML Route: Intravitreal, Site: Right Eye [facility]: [address]-4, Lot: [id number], Expiration date: 07/18/2025 Post-op Post injection exam [...] decreased vision or concerns. documented in this encounterThe Rehabilitation InstitutePftuyvyymw06-02-8952 History of Present illness Narrative* Enrique Arias NP - 10/20/2024 4:09 PM ESTAssociated Problem(s): Chronic kidney disease (CKD) stage G3a/A1, moderately decreased glomerular filtration rate (GFR) between 45-59 mL/min/1.73 square meter and albuminuria creatinine ratio less than 30 mg/g (H* ([facility]) Kidney function has decreased in past year to 45- will discontinue metformin and trial Farxiga at 10mg. Re-evaluate in 6 weeks. Recheck CMP in 6 weeks * Enrique Arias NP - 10/20/2024 4:00 PM ESTAssociated Problem(s): Type 2 diabetes mellitus without complication, without long-term current useof insulin ([facility]) Currently taking Metformin 500mg BID Glimepiride 2mg [...] persistent hypoglycemia/hyperglycemia on home glucose monitoring noted. * Enrique Arias NP - 10/20/2024 4:00 PM EST Images from the original note [...] ALBUMIN GLOBULIN RATIO 0.9 0.8 Resulting Agency [facility] DMII: Currently taking Metformin 500mg BID Glimepiride [...] Neurological: Negative for dizziness, tremors, syncope, weakness, light- headedness and headaches. Psychiatric/Behavioral: Negative for decreased concentration and suicidal ideas. The patient is notnervous/anxious. Hematological: Does not bruise/bleed easily. Endocrine: Negative [...] for hypertriglyceridemia Relevant Medications fish oil concentrate (Galliano-3) 1000 MG capsule rosuvastatin (Crestor) 20 MG tablet Coronary artery disease involving nome coronary artery of nome heart without angina pectoris (CMS/HCC) Relevant Medications valsartan (Diovan) 80 MG tablet dapagliflozin (Farxiga) 10 MG Primary hypertension (CMS/HCC) - Primary Currently taking Metoprolol and Valsartan Does not check BP at home; Denies orthostatic changes, dizziness, cough, shortness of breath, swelling in extremities. Continue current regimen. Given BP log, advised pt to record BP and bring log back with them to next visit. Type 2 diabetes mellitus without complication, without long-term current use of insulin (CMS/HCC) Currently taking Metformin 500mg BID Glimepiride 2mg [...] ratio less than 30 mg/g (H* (CMS/HCC) Kidney function has decreased in past year to 45- will discontinue metformin and trial Farxiga at 10mg. Re-evaluate in 6 weeks. Recheck CMP in 6 weeks Relevant Medications dapagliflozin (Farxiga) 10 MG * Enrique Arias NP - 10/20/2024 3:56 PM ESTAssociated Problem(s): Hyperlipemia (CMS/HCC) Currently taking Rosuvastatin Denies any myalgias. Will add Fish oil 2g BID for hypertriglyceridemia * Enrique Arias NP - 10/20/2024 3:52 PM ESTAssociated Problem(s): Primary hypertension ([facility]/HCC) Currently taking Metoprolol and Valsartan Does not check BP at home; Denies orthostatic changes, dizziness, cough, shortness of breath, swelling in extremities. Continue current regimen. Given BP log, advised pt to record BP and bring log back with them to next visit. documented in this encounterThe Rehabilitation [id number] Instructions* Patient Instructions* Enrique Arias NP - 10/20/2024 4:00 PM [...] carbohydrates, and simple sugars. documented in this encounterThe Rehabilitation [id number] NoteTime Out 10/11/2024. 9:53 AM. Confirmed correct patient, procedure, site, and patient consented. Anesthesia Topical anesthesia was used. Anesthetic medications included Lidocaine 2%, Proparacaine 0.5%. Procedure Preparation included 5% betadine to ocular surface, eyelid speculum. Injection: 1.25 mg Bevacizumab 1.25 MG/0.05ML Route: Intravitreal, Site: Left Eye [place]: [address]-6, Lot: [id number], Expiration date: 11/10/2024 Post-op Post injection exam [...] with increased pain, redness, decreased vision or concerns.The Rehabilitation [id number] History of Present illness Narrative* Gregory Lujan DO - 10/11/2024 9:30 AM EST Images from the original note were not included. Assessment/Plan Diagnoses and all orders for this visit: 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 ([facility]) - Intravitreal Injection, Pharmacologic Agent - OS [...] 1.25 MG/0.05ML Route: Intravitreal, Site: Left Eye [facility]: [address]-6, Lot: [id number], Expiration date: 11/10/2024 Post-op Post injection exam [...] decreased vision or concerns. documented in this encounterThe Rehabilitation [id number] NoteTime Out 09/27/2024. 8:32 AM. Confirmed correct patient, procedure, site, and patient consented. Anesthesia Topical anesthesia was used. Anesthetic medications included Lidocaine 2%, Proparacaine 0.5%. Procedure Preparation included 5% betadine to ocular surface, eyelid speculum. A 30 gauge needle was used. Injection: 1.25 mg Bevacizumab 1.25 MG/0.05ML Route: Intravitreal, Site: Right Eye [facility]: [address]-9, Lot: [id number], Expiration date: 11/10/2024 Post-op Post injection exam [...] increased pain, redness, decreased vision or concerns. [facility] [id number] History of Present illness Narrative* Gregory Lujan, DO - 09/27/2024 8:30 AM EST Images from the original note were not included. Assessment/Plan Diagnoses and all orders for this visit: 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 (CMS/HCC) - Intravitreal Injection, Pharmacologic Agent - OD [...] 1.25 MG/0.05ML Route: Intravitreal, Site: Right Eye [facility]: [address]-8, Lot: [id number], Expiration date: 11/10/2024 Post-op Post injection exam [...] decreased vision or concerns. documented in this [facility]01-22-2025 History of Present illness Narrative* Pema Vargas LPN - 09/21/2024 12:15 PM EST Pt presents today for a post accident drug screen and BAT for EPC. Pt verified by photo ID. documented in this [facility]01-21-2025 NoteRight Eye Quality was good. Scan locations included subfoveal. Progression has been stable. Findings include abnormal foveal contour, epiretinal membrane, intraretinal fluid. Left Eye Quality was borderline. Scan locations included subfoveal. Progression has been stable. Findings include abnormal foveal contour, epiretinal membrane, intraretinal fluid.The Rehabilitation [id number] History of Present illness Narrative* Gregory Lujan DO - 09/20/2024 3:00 PM EST Images from the original note were not included. Assessment/Plan Diagnoses and all orders for this visit: Cystoid macular edema of both eyes Vs. 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 ([facility]/HCC) - Mr. Sandoval continues to suffer from edema within the macula of both eyes (OU). At this time I believe this to be a consequence of DME both eyes (OU). He also displays an epiretinal membrane (ERM) both eyes (OU). I have advised for antiVEGF treatment both eyes (OU) to commence to improve swelling. documented in this [facility]12-20-2024 History of Present illness Narrative* Yohan Villalta MD - 08/19/2024 1:30 PM EST Subjective Gian Sandoval is a 63 y.o. [...] mature nature of collaterals andejection fraction 45%. Viability study time out to be negative there 40 was not a candidate for complete revascularization with surgery. We will continue aggressive modification risk factor for CAD. 2-ischemic cardiopathy stage C functional class II, he is currently on beta- evin therapy and valsartan 3-type II diabetes on [...] BMI 35.0-35.9,adult 8. Atherosclerotic heart disease of nome coronary artery without angina pectoris valsartan (Diovan) 80 mg tablet Scribe Attestation By signing my name below, Elizabeth Coats LPN , Scrkasie attest that this documentation has been prepared under the direction and in the presence of Yohan Villalta MD. Provider Attestation - Scribe documentation All medical record entries made by the Scribe were at my direction and personally dictated by me. Ihijeoma reviewed the chart and agree that the record accurately reflects my personal performance of the history, physical exam, discussion and plan. documented in this encounterBl[facility] Work Phone: 1(877) 115-470912-20-2024 Instructions* Patient Instructions* Elizabeth Campos LPN - 08/19/2024 1:30 PM [...] Sleep study 6 months documented in this encounterBlanchard Valley [facility] Work Phone: 1(112) 418-204212-09-2024 Telephone encounter Note* Telephone Encounter - Carmencita Boateng - 08/08/2024 11:05 AM EST Patient forgot to tell you he needed all of his prescriptions refilled. JN [facility] [id number] Miscellaneous Notes* Telephone Encounter - Carmencita Boateng - 08/08/2024 11:05 AM EST Patient forgot to tell you he needed all of his prescriptions refilled. JN documented in this encounterThe Rehabilitation [id number] NoteRight Eye Quality was poor. Scan locations included subfoveal. Progression has worsened. Findings include abnormal foveal contour, intraretinal fluid, subretinal fluid. Left Eye Quality was poor. Scan locations included subfoveal. Progression has worsened. Findings include abnormal foveal contour, intraretinal fluid.The Rehabilitation [id number] History of Present illness Narrative* Gregory Lujan DO - 08/05/2024 11:45 AM EST Images from the original note were not included. Assessment/Plan Diagnoses and all orders for this visit: Cystoid macular edema of both eyes Vs. 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 ([facility]/HCC) - Mr. Sandoval returns status post (s/p) [...] may discuss antiVEGF therapy. documented in this [facility]11-13-2024 History of Present illness Narrative* Enrique Arias NP - 07/13/2024 4:21 PM ESTAssociated Problem(s): 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 edema, without long-term current use of insulin ([facility]) Currently taking Glimepiride and Metformin. Most recent [...] persistent hypoglycemia/hyperglycemia on home glucose monitoring noted. * Enrique Arias NP - 07/13/2024 4:20 PM ESTAssociated Problem(s): Hyperlipemia (CMS/HCC) Currently taking Rosuvastatin Denies any myalgias. Continue current regimen. * Enrique Arias NP - 07/13/2024 4:20 PM ESTAssociated Problem(s): Primary hypertension (CMS/HCC) Currently taking Metoprolol and Valsartan Does not check BP at home; BP at goal today in office. Denies orthostatic changes, dizziness, cough, shortness of breath, swelling in extremities. Continue current regimen. Given BP log, advised pt to record BP and bring log back with them to next visit. * Enrique Arias NP - 07/13/2024 4:00 PM EST Images from the original note [...] Neurological: Negative for dizziness, tremors, syncope, weakness, light- headedness and headaches. Psychiatric/Behavioral: Negative for decreased concentration and suicidal ideas. The patient is notnervous/anxious. Hematological: Does not bruise/bleed easily. Endocrine: Negative [...] edema, without long-term current use of insulin ([facility]) Currently taking Glimepiride and Metformin. Most recent [...] them to next visit. documented in this encounterThe Rehabilitation [id number] Instructions* Patient Instructions* Enrique Arias NP - 07/13/2024 4:00 PM [...] carbohydrates, and simple sugars. documented in this encounterThe Rehabilitation [id number] History of Present illness Narrative* Gregoyr Lujan, DO - 05/24/2024 9:15 AM EDT Images from the original note were not [...] with pre-existing conditions affecting other areas of theeye or the brain was explained and the patient displayed an understanding. The overall objective isto improve ADLs, not eliminate glasses or restore vision to 20/20. Tests were reviewed - the different lens options were explained including the [id number] fees for any upgrades. Intraocular lens ( IOL) selection may be altered either prior to or during the procedure based on the doctor's discretion including reverting to a traditional intraocular lens (IOL). They understood that there will exist the potential of glasses prescription need post surgery for near, distance or possibly both. The patient stated a full understanding and a desire to proceed with the procedure. The patient receivedcataract measurements and had any additional questions answered. [...] yearly dilated examinations, but to contact us imm ediately for any problems or concerns. Continue aggressive control of the blood sugar, blood pressure and cholesterol. documented in this [facility]02-07-2024 History of Present illness Narrative* Shaikh Ramses MD - 10/07/2023 1:12 PM EST j documented in this [facility]02-01-2024 History of Present illness Narrative* Yohan Villalta MD - 10/01/2023 10:30 AM EST Subjective Gian Sandoval is a 62 y.o. [...] will continue aggressivemodification risk factor for CAD. 2-ischemic cardiopathy stage C functional class II, he is currently on beta- evin therapy 3-diabetes on medical therapy managed by [...] of other type without complication, unspecified whether machine long goods helper insulin 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 Never smoked any substance Scribe Attestation By signing my name below, Tammy Coats LPN , Scribe attest that this documentation has been prepared under the direction and in the presence of Yohan Villalta MD. documented in this encounterBl[facility]ard [facility] Work Phone: 1(120) 872-942502-01-2024 Instructions* Patient Instructions* Ileana Franco LPN - 10/01/2023 10:30 AM [...] time of your visit. documented in this encounterUnMer[facility] Work Phone: Evaluation noteNo assessment information available [facility] Work Phone: Evaluation note* Diagnosis 3-vessel coronary artery disease Cardiomyopathy, unspecified type (CMS/HCC) Hyperlipidemia, unspecified hyperlipidemia type Diabetes mellitus of other type without complication, unspecified whether machine long goods helper insulin use ([facility]) Never smoked any substance documented in this encounter [facility] Work Phone: Evaluation note* Diagnosis Type 2 diabetes mellitus without complication, without long-term current use of insulin ([facility]/HCC)- Primary documented in this encounter [facility] HealthcareEvaluation note* Diagnosis Hyperlipidemia, unspecified hyperlipidemia type (CMS/HCC) documented in this encounter [facility] HealthcareEvaluation note* Diagnosis Type 2 diabetes mellitus without complication, without long-term current use of insulin (CMS/HCC)- Primary Hyperlipidemia, unspecified hyperlipidemia type (CMS/HCC) Coronary artery disease involving nome coronary artery of nome heart without angina pectoris (CMS/HCC) Primary hypertension [...] hyperlipidemia type (CMS/HCC) Coronary artery disease involving nome coronary artery of nome heart without angina pectoris (CMS/HCC) Age-related nuclear cataract of both eyes- Primary documented in this encounter [facility] HealthcareEvaluation note* Diagnosis Type 2 diabetes mellitus without complication, without long-term current use of insulin (CMS/HCC)- Primary Hyperlipidemia, unspecified hyperlipidemia type (CMS/HCC) Coronary artery disease involving nome coronary artery of nome heart without angina pectoris (CMS/HCC) Primary hypertension [...] hyperlipidemia type (CMS/HCC) Coronary artery disease involving nome coronary artery of nome heart without angina pectoris (CMS/HCC) Primary hypertension [...] hyperlipidemia type (CMS/HCC) Coronary artery disease involving nome coronary artery of nome heart without angina pectoris (CMS/HCC) Primary hypertension [...] hyperlipidemia type (CMS/HCC) Coronary artery disease involving nome coronary artery of nome heart without angina pectoris (CMS/HCC) Primary hypertension [...] hyperlipidemia type (CMS/HCC) Coronary artery disease involving nome coronary artery of nome heart without angina pectoris (CMS/HCC) Primary hypertension [...] hyperlipidemia type (CMS/HCC) Coronary artery disease involving nome coronary artery of nome heart without angina pectoris (CMS/HCC) Primary hypertension [...] macular edema associated with type2 diabetes mellitus (CMS/HCC) documented in this encounter [facility] HealthcareEvaluation note* Diagnosis Type 2 diabetes mellitus without complication, without long-term current use of insulin (CMS/HCC)- Primary Hyperlipidemia, unspecified hyperlipidemia type (CMS/HCC) Coronary artery disease involving nome coronary artery of nome heart without angina pectoris (CMS/HCC) Primary hypertension [...] hyperlipidemia type (CMS/HCC) Coronary artery disease involving nome coronary artery of nome heart without angina pectoris (CMS/HCC) Primary hypertension (CMS/HCC)- Primary Unspecified essential hypertension 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 edema, without long-term current use of insulin (CMS/HCC) Hyperlipidemia, unspecified hyperlipidemia type (CMS/HCC) Coronary artery disease involving nome coronary artery of nome heart without angina pectoris (CMS/HCC)- Primary Type 2 diabetes mellitus without complication, without long-term current use of insulin (CMS/HCC) Type 2 diabetes mellitus with hyperglycemia (CMS/HCC) Hyperlipidemia, unspecified hyperlipidemia type (CMS/HCC) Irregular heart rate documented in this encounter [facility] HealthcareEvaluation note* Diagnosis Type 2 diabetes mellitus without complication, without long-term current use of insulin (CMS/HCC)- Primary Hyperlipidemia, unspecified hyperlipidemia type (CMS/HCC) Coronary artery disease involving nome coronary artery of nome heart without angina pectoris (CMS/HCC) Primary hypertension [...] hyperlipidemia type (CMS/HCC) Coronary artery disease involving nome coronary artery of nome heart without angina pectoris (CMS/HCC) Primary hypertension [...] macular edema associated with type2 diabetes mellitus (CMS/HCC) documented in this encounter [...] substance BMI 35.0-35.9,adult Atherosclerotic heart disease of nome coronary artery without angina pectoris documented in this encounter [facility] Work Phone: Evaluation note* Diagnosis Type 2 diabetes mellitus without complication, without long-term current use of insulin (CMS/HCC)- Primary Hyperlipidemia, unspecified hyperlipidemia type (CMS/HCC) Coronary artery disease involving nome coronary artery of nome heart without angina pectoris (CMS/HCC) Primary hypertension [...] hyperlipidemia type (CMS/HCC) Coronary artery disease involving nome coronary artery of nome heart without angina pectoris (CMS/HCC) Primary hypertension [...] hyperlipidemia type (CMS/HCC) Coronary artery disease involving nome coronary artery of nome heart without angina pectoris (CMS/HCC) Primary hypertension [...] hyperlipidemia type (CMS/HCC) Coronary artery disease involving nome coronary artery of nome heart without angina pectoris (CMS/HCC) Primary hypertension (CMS/HCC)- Primary Unspecified essential hypertension 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 edema, without long-term current use of insulin (CMS/HCC) Hyperlipidemia, unspecified hyperlipidemia type (CMS/HCC) 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 (CMS/HCC)- Primary documented in this encounter [facility] HealthcareEvaluation note* Diagnosis Type 2 diabetes mellitus without complication, without long-term current use of insulin (CMS/HCC)- Primary Hyperlipidemia, unspecified hyperlipidemia type (CMS/HCC) Coronary artery disease involving nome coronary artery of nome heart without angina pectoris (CMS/HCC) Primary hypertension [...] hyperlipidemia type (CMS/HCC) Coronary artery disease involving nome coronary artery of nome heart without angina pectoris (CMS/HCC) Primary hypertension (CMS/HCC)- Primary Unspecified essential hypertension 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 edema, without long-term current use of insulin (CMS/HCC) Hyperlipidemia, unspecified hyperlipidemia type (CMS/HCC) 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 (CMS/HCC)- Primary documented in this encounter [facility] HealthcareEvaluation note* Diagnosis Type 2 diabetes mellitus without complication, without long-term current use of insulin (CMS/HCC)- Primary Hyperlipidemia, unspecified hyperlipidemia type (CMS/HCC) Coronary artery disease involving nome coronary artery of nome heart without angina pectoris (CMS/HCC) Primary hypertension [...] hyperlipidemia type (CMS/HCC) Coronary artery disease involving nome coronary artery of nome heart without angina pectoris (CMS/HCC) Primary hypertension [...] hyperlipidemia type (CMS/HCC) Coronary artery disease involving nome coronary artery of nome heart without angina pectoris (CMS/HCC) Chronic kidney disease (CKD) stage G3a/A1, moderately decreased glomerular filtration rate (GFR) between 45-59 mL/min/1.73 square meter and albuminuria creatinine ratio less than 30 mg/g (H* (CMS/HCC) documented in this encounter [facility] HealthcareEvaluation note* Diagnosis Type 2 diabetes mellitus without complication, without long-term current use of insulin (CMS/HCC)- Primary Hyperlipidemia, unspecified hyperlipidemia type (CMS/HCC) Coronary artery disease involving nome coronary artery of nome heart without angina pectoris (CMS/HCC) Primary hypertension ([facility]/HCC) Unspecified essential hypertension Encounter for screening for malignant neoplasm of colon Primary hypertension ([facility])- Primary Unspecified essential hypertension Type 2 diabetes mellitus without complication, without long-term current use of insulin ([facility]/HCC) Primary hypertension ([facility]/HCC)- Primary Unspecified essential hypertension 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 edema, without long-term current use of insulin (CMS/[facility]) Hyperlipidemia, unspecified hyperlipidemia type (CMS/HCC) Coronary artery disease involving nome coronary artery of nome heart without angina pectoris (CMS/HCC) Primary hypertension [...] (CMS/HCC) Type 2 diabetes mellitus with hyperglycemia (CMS/[facility]) Irregular heart rate Hyperlipidemia, unspecified hyperlipidemia type (CMS/HCC) Coronary artery disease involving nome coronary artery of nome heart without angina pectoris (CMS/HCC) Chronic kidney disease (CKD) stage G3a/A1, moderately decreased glomerular filtration rate (GFR) between 45-59 mL/min/1.73 square meter and albuminuria creatinine ratio less than 30 mg/g (H* (CMS/HCC) 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 (CMS/HCC)- Primary 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 (CMS/HCC) documented in this encounter [facility] HealthcareEvaluation note* Diagnosis Type 2 diabetes mellitus without complication, without long-term current use of insulin (CMS/HCC)- Primary Hyperlipidemia, unspecified hyperlipidemia type (CMS/HCC) Coronary artery disease involving nome coronary artery of nome heart without angina pectoris (CMS/HCC) Primary hypertension [...] hyperlipidemia type (CMS/HCC) Coronary artery disease involving nome coronary artery of nome heart without angina pectoris (CMS/HCC) Primary hypertension [...] (CMS/HCC) Type 2 diabetes mellitus with hyperglycemia (CMS/[facility]) Irregular heart rate Hyperlipidemia, unspecified hyperlipidemia type (CMS/HCC) Coronary artery disease involving nome coronary artery of nome heart without angina pectoris (CMS/HCC) Chronic kidney disease (CKD) stage G3a/A1, moderately decreased glomerular filtration rate (GFR) between 45-59 mL/min/1.73 square meter and albuminuria creatinine ratio less than 30 mg/g (H* (CMS/[facility]) 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 (CMS/HCC)- Primary documented in [facility] encounter [facility] HealthcareEvaluation note* Diagnosis Type 2 diabetes mellitus without complication, without long-term current use of insulin (CMS/HCC)- Primary Hyperlipidemia, unspecified hyperlipidemia type (CMS/HCC) Coronary artery disease involving nome coronary artery of nome heart without angina pectoris (CMS/HCC) Primary hypertension [...] edema, without long-term current use of insulin ([facility]) Hyperlipidemia, unspecified hyperlipidemia type ([facility]) Coronary artery disease involving nome coronary artery of nome heart without angina pectoris ([facility]) Primary hypertension ([facility])- Primary Unspecified essential hypertension 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 edema, without long-term current use of insulin ([facility]) Hyperlipidemia, unspecified hyperlipidemia type ([facility]) Encounter for drug screening Primary hypertension ([facility])- Primary Unspecified essential hypertension Type 2 diabetes mellitus without complication, without long-term current use of insulin ([facility]) Type 2 diabetes mellitus with hyperglycemia ([facility]) Irregular heart rate Hyperlipidemia, unspecified hyperlipidemia type ([facility]) Coronary artery disease involving nome coronary artery of nome heart without angina pectoris ([facility]) Chronic kidney disease (CKD) stage G3a/A1, moderately decreased glomerular filtration rate (GFR) between 45-59 mL/min/1.73 square meter and albuminuria creatinine ratio less than 30 mg/g (H* ([facility]) documented in this encounter [facility] HealthcareEvaluation note* Diagnosis Type 2 diabetes mellitus without complication, without long-term current use of insulin- Primary Hyperlipidemia, unspecified hyperlipidemia type ([facility]) Coronary artery disease involving nome coronary artery of nome heart without angina pectoris ([facility]) Primary hypertension ([facility]) Unspecified essential hypertension Encounter for screening for malignant neoplasm of colon Primary hypertension ([facility])- Primary Unspecified essential hypertension Type 2 diabetes mellitus without complication, without long-term current use of insulin Primary hypertension ([facility])- Primary Unspecified essential hypertension 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 edema, without long-term current use of insulin ([facility]) Hyperlipidemia, unspecified hyperlipidemia type ([facility]) Coronary artery disease involving nome coronary artery of nome heart without angina pectoris ([facility] [facility]) Primary hypertension ([facility])- Primary Unspecified essential hypertension 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 edema, without long-term current use of insulin ([facility]) Hyperlipidemia, unspecified hyperlipidemia type ([facility]) Primary hypertension ([facility])- Primary Unspecified essential hypertension Type 2 diabetes mellitus without complication, without long-term current use of insulin Type 2 diabetes mellitus with hyperglycemia (CMS/HCC) Irregular heart rate Hyperlipidemia, unspecified hyperlipidemia type (CMS/HCC) Coronary artery disease involving nome coronary artery of nome heart without angina pectoris (CMS/HCC) Chronic kidney disease (CKD) stage G3a/A1, moderately decreased glomerular filtration rate (GFR) between 45-59 mL/min/1.73 square meter and albuminuria creatinine ratio less than 30 mg/g (H* 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 (CMS/HCC)- Primary Bilateral posterior capsular opacification Unspecified after-cataract documented in this encounter [facility] HealthcareEvaluation note* Diagnosis Type 2 diabetes mellitus without complication, without long-term current use of insulin- Primary Hyperlipidemia, unspecified hyperlipidemia type (CMS/HCC) Coronary artery disease involving nome coronary artery of nome heart without angina pectoris (CMS/HCC) Primary hypertension ([facility]) Unspecified essential hypertension Encounter for screening for malignant neoplasm of colon Primary hypertension ([facility])- Primary Unspecified essential hypertension Type 2 diabetes mellitus without complication, without long-term current use of insulin Primary hypertension ([facility]/HCC)- Primary Unspecified essential hypertension 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 edema, without long-term current use of insulin (CMS/HCC) Hyperlipidemia, unspecified hyperlipidemia type (CMS/HCC) Coronary artery disease involving nome coronary artery of nome heart without angina pectoris (CMS/HCC) Primary hypertension (CMS/HCC)- Primary Unspecified essential hypertension 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 edema, without long-term current use of insulin (CMS/HCC) Hyperlipidemia, unspecified hyperlipidemia type (CMS/HCC) Primary hypertension ([facility]/HCC)- Primary Unspecified essential hypertension Type 2 diabetes mellitus without complication, without long-term current use of insulin Type 2 diabetes mellitus with hyperglycemia (CMS/HCC) Irregular heart rate Hyperlipidemia, unspecified hyperlipidemia type (CMS/HCC) Coronary artery disease involving nome coronary artery of nome heart without angina pectoris (CMS/HCC) Chronic kidney [...] hyperlipidemia type (CMS/HCC) Coronary artery disease involving nome coronary artery of nome heart without angina pectoris (CMS/HCC) Primary hypertension [...] hyperlipidemia type (CMS/HCC) Coronary artery disease involving nome coronary artery of nome heart without angina pectoris (CMS/HCC) Primary hypertension [...] hyperlipidemia type (CMS/HCC) Coronary artery disease involving nome coronary artery of nome heart without angina pectoris (CMS/HCC) Chronic kidney disease (CKD) stage G3a/A1, moderately decreased glomerular filtration rate (GFR) between 45-59 mL/min/1.73 square meter and albuminuria creatinine ratio less than 30 mg/g (H* 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 (CMS/HCC)- Primary documented in this encounter [facility] HealthcareEvaluation note* Diagnosis Type 2 diabetes mellitus without complication, without long-term current use of insulin- Primary Hyperlipidemia, unspecified hyperlipidemia type (CMS/HCC) Coronary artery disease involving nome coronary artery of nome heart without angina pectoris (CMS/HCC) Primary hypertension [...] hyperlipidemia type (CMS/HCC) Coronary artery disease involving nome coronary artery of nome heart without angina pectoris (CMS/HCC) Primary hypertension (CMS/HCC)- Primary Unspecified essential hypertension 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 edema, without long-term current use of insulin (CMS/HCC) Hyperlipidemia, unspecified hyperlipidemia type (CMS/HCC) Primary hypertension ([facility]/HCC)- Primary Unspecified essential hypertension Type 2 diabetes mellitus without complication, without long-term current use of insulin Type 2 diabetes mellitus with hyperglycemia (CMS/[facility]) Irregular heart rate Hyperlipidemia, unspecified hyperlipidemia type (CMS/HCC) Coronary artery disease involving nome coronary artery of nome heart without angina pectoris (CMS/HCC) Chronic kidney [...] hyperlipidemia type (CMS/HCC) Coronary artery disease involving nome coronary artery of nome heart without angina pectoris (CMS/HCC) Primary hypertension ([facility]/HCC) Unspecified essential hypertension Encounter for screening for malignant neoplasm of colon Primary hypertension ([facility] [place])- Primary Unspecified essential hypertension Type 2 diabetes mellitus without complication, without long-term current use of insulin Primary hypertension (CMS/HCC)- Primary Unspecified essential hypertension 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 edema, without long-term current use of insulin (CMS/HCC) Hyperlipidemia, unspecified hyperlipidemia type (CMS/HCC) Coronary artery disease involving nome coronary artery of nome heart without angina pectoris (CMS/HCC) Primary hypertension ([facility]/HCC)- Primary Unspecified essential hypertension Type 2 diabetes [...] hyperlipidemia type (CMS/HCC) Coronary artery disease involving nome coronary artery of nome heart without angina pectoris (CMS/HCC) Chronic kidney [...] unspecified hyperlipidemia type Coronary artery disease involving nome coronary artery of nome heart without angina pectoris Primary hypertension Unspecified [...] unspecified hyperlipidemia type Coronary artery disease involving nome coronary artery of nome heart without angina pectoris Primary hypertension- Primary [...] unspecified hyperlipidemia type Coronary artery disease involving nome coronary artery of nome heart without angina pectoris Chronic kidney disease (CKD) stage G3a/A1, moderately decreased glomerular filtration rate (GFR) between 45-59 mL/min/1.73 square meter and albuminuria creatinine ratio less than 30 mg/g (H* (CMS-HCC) 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 (HCC)- Primary documented in this encounter [facility] HealthcareEvaluation note* Diagnosis Type 2 diabetes mellitus without complication, without long-term current use of insulin (HCC)- Primary Hyperlipidemia, unspecified hyperlipidemia type Coronary artery disease involving nome coronary artery of nome heart without angina pectoris Primary hypertension Unspecified [...] unspecified hyperlipidemia type Coronary artery disease involving nome coronary artery of nome heart without angina pectoris Primary hypertension- Primary Unspecified essential hypertension 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 edema, without long-term current use of insulin ([facility]) Hyperlipidemia, unspecified hyperlipidemia type Primary hypertension- Primary Unspecified essential hypertension Type 2 diabetes mellitus without complication, without long-term current use of insulin ([facility]) Type 2 diabetes mellitus with hyperglycemia ([facility]) Irregular heart rate Hyperlipidemia, unspecified hyperlipidemia type Coronary artery disease involving nome coronary artery of nome heart without angina pectoris Chronic kidney disease (CKD) stage G3a/A1, moderately decreased glomerular filtration rate (GFR) between 45-59 mL/min/1.73 square meter and albuminuria creatinine ratio less than 30 mg/g (H* ([facility] CKD stage 3b, GFR 30-44 ml/min (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 (HCC) Type 2 diabetes mellitus without complication, without long-term current use of insulin ([facility]) Hyperlipidemia, unspecified hyperlipidemia type Primary hypertension Unspecified essential hypertension Coronary artery disease involving nome coronary artery of nome heart without angina pectoris Diabetes mellitus type 2 with complications ([facility]) documented in this encounter [facility] HealthcareEvaluation note* Diagnosis Type 2 diabetes mellitus without complication, without long-term current use of insulin ([facility])- Primary Hyperlipidemia, unspecified hyperlipidemia type Coronary artery disease involving nome coronary artery of nome heart without angina pectoris Primary hypertension Unspecified essential hypertension Encounter for screening for malignant neoplasm of colon Primary hypertension- Primary Unspecified essential hypertension Type 2 diabetes mellitus without complication, without long-term current use of insulin (HCC) Primary hypertension- Primary Unspecified essential hypertension 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 edema, without long-term current use of insulin ([facility]) Hyperlipidemia, unspecified hyperlipidemia type Coronary artery disease involving nome coronary artery of nome heart without angina pectoris Primary hypertension- Primary [...] unspecified hyperlipidemia type Coronary artery disease involving nome coronary artery of nome heart without angina pectoris Chronic kidney disease (CKD) stage G3a/A1, moderately decreased glomerular filtration rate (GFR) between 45-59 mL/min/1.73 square meter and albuminuria creatinine ratio less than 30 mg/g (H* ([facility] CKD stage 3b, GFR 30-44 ml/min (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 (HCC) Type 2 diabetes mellitus without complication, without long-term current use of insulin (HCC) Hyperlipidemia, unspecified hyperlipidemia type Primary hypertension Unspecified essential hypertension Coronary artery disease involving nome coronary artery of nome heart without angina pectoris Diabetes mellitus type 2 with complications (HCC) Type 2 diabetes mellitus with hyperglycemia (HCC)- Primary documented in this encounter [facility] HealthcareEvaluation note* Diagnosis Type 2 diabetes mellitus without complication, without long-term current use of insulin (HCC)- Primary Hyperlipidemia, unspecified hyperlipidemia type Coronary artery disease involving nome coronary artery of nome heart without angina pectoris Primary hypertension Unspecified [...] unspecified hyperlipidemia type Coronary artery disease involving nome coronary artery of nome heart without angina pectoris Primary hypertension- Primary [...] unspecified hyperlipidemia type Coronary artery disease involving nome coronary artery of nome heart without angina pectoris Chronic kidney disease (CKD) stage G3a/A1, moderately decreased glomerular filtration rate (GFR) between 45-59 mL/min/1.73 square meter and albuminuria creatinine ratio less than 30 mg/g (H* ([facility] CKD stage 3b, GFR 30-44 ml/min (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 ([facility]) Type 2 diabetes mellitus without complication, without long-term current use of insulin ([facility]) Hyperlipidemia, unspecified hyperlipidemia type Primary hypertension Unspecified essential hypertension Coronary artery disease involving nome coronary artery of nome heart without angina pectoris Diabetes mellitus type 2 with complications ([facility]) 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 (HCC)- Primary documented in this encounter [facility] HealthcareEvaluation note* Diagnosis Type 2 diabetes mellitus without complication, without long-term current use of insulin ([facility])- Primary Hyperlipidemia, unspecified hyperlipidemia type Coronary artery disease involving nome coronary artery of nome heart without angina pectoris Primary hypertension Unspecified essential hypertension Encounter for screening for malignant neoplasm of colon Primary hypertension- Primary Unspecified essential hypertension Type 2 diabetes mellitus without complication, without long-term current use of insulin ([facility]) Primary hypertension- Primary Unspecified essential hypertension 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 edema, without long-term current use of insulin ([facility]) Hyperlipidemia, unspecified hyperlipidemia type Coronary artery disease involving nome coronary artery of nome heart without angina pectoris Primary hypertension- Primary Unspecified essential hypertension 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 edema, without long-term current use of insulin ([facility]) Hyperlipidemia, unspecified hyperlipidemia type Primary hypertension- Primary Unspecified essential hypertension Type 2 diabetes mellitus without complication, without long-term current use of insulin ([facility]) Type 2 diabetes mellitus with hyperglycemia ([facility]) Irregular heart rate Hyperlipidemia, unspecified hyperlipidemia type Coronary artery disease involving nome coronary artery of nome heart without angina pectoris Chronic kidney disease (CKD) stage G3a/A1, moderately decreased glomerular filtration rate (GFR) between 45-59 mL/min/1.73 square meter and albuminuria creatinine ratio less than 30 mg/g (H* (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 (HCC) Type 2 diabetes mellitus without complication, without long-term current use of insulin (HCC) Hyperlipidemia, unspecified hyperlipidemia type Primary hypertension Unspecified essential hypertension Coronary artery disease involving nome coronary artery of nome heart without angina pectoris Diabetes mellitus type 2 with complications (HCC) Coronary artery disease involving nome coronary artery of nome heart without angina pectoris documented in this encounter [facility] HealthcareEvaluation note* Diagnosis Type 2 diabetes mellitus without complication, without long-term current use of insulin ([facility])- Primary Hyperlipidemia, unspecified hyperlipidemia type Coronary artery disease involving nome coronary artery of nome heart without angina pectoris Primary hypertension Unspecified essential hypertension Encounter for screening for malignant neoplasm of colon Primary hypertension- Primary Unspecified essential hypertension Type 2 diabetes mellitus without complication, without long-term current use of insulin ([facility]) Primary hypertension- Primary Unspecified essential hypertension 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 edema, without long-term current use of insulin ([facility]) Hyperlipidemia, unspecified hyperlipidemia type Coronary artery disease involving nome coronary artery of nome heart without angina pectoris Primary hypertension- Primary Unspecified essential hypertension 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 edema, without long-term current use of insulin ([facility] [place]) Hyperlipidemia, unspecified hyperlipidemia type Primary hypertension- Primary Unspecified essential hypertension Type 2 diabetes mellitus without complication, without long-term current use of insulin ([facility]) Type 2 diabetes mellitus with hyperglycemia ([facility]) Irregular heart rate Hyperlipidemia, unspecified hyperlipidemia type Coronary artery disease involving nome coronary artery of nome heart without angina pectoris Chronic kidney disease (CKD) stage G3a/A1, moderately decreased glomerular filtration rate (GFR) between 45-59 mL/min/1.73 square meter and albuminuria creatinine ratio less than 30 mg/g (H* ([facility] CKD stage 3b, GFR 30-44 ml/min (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 (HCC) Type 2 diabetes mellitus without complication, without long-term current use of insulin ([facility]) Hyperlipidemia, unspecified hyperlipidemia type Primary hypertension Unspecified essential hypertension Coronary artery disease involving nome coronary artery of nome heart without angina pectoris Diabetes mellitus type 2 with complications ([facility]) 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 ([facility])- Primary documented in this encounter [facility] HealthcareEvaluation note* Diagnosis 3-vessel coronary artery disease Cardiomyopathy, unspecified type (Multi) Hyperlipidemia, unspecified hyperlipidemia type Diabetes mellitus of other type without complication, unspecified whether half-way insulin use Never smoked any substance BMI 36.0-36.9,adult documented in this encounter [facility] Work Phone: Evaluation note* Diagnosis Type 2 diabetes mellitus without complication, without long-term current use of insulin (HCC)- Primary Hyperlipidemia, unspecified hyperlipidemia type Coronary artery disease involving nome coronary artery of nome heart without angina pectoris Primary hypertension Unspecified essential hypertension Encounter for screening for malignant neoplasm of colon Primary hypertension- Primary Unspecified essential hypertension Type 2 diabetes mellitus without complication, without long-term current use of insulin (HCC) Primary hypertension- Primary Unspecified essential hypertension 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 edema, without long-term current use of insulin ([facility]) Hyperlipidemia, unspecified hyperlipidemia type Coronary artery disease involving nome coronary artery of nome heart without angina pectoris Primary hypertension- Primary Unspecified essential hypertension 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 edema, without long-term current use of insulin ([facility]) Hyperlipidemia, unspecified hyperlipidemia type Primary hypertension- Primary Unspecified essential hypertension Type 2 diabetes mellitus without complication, without long-term current use of insulin (HCC) Type 2 diabetes mellitus with hyperglycemia (HCC) Irregular heart rate Hyperlipidemia, unspecified hyperlipidemia type Coronary artery disease involving nome coronary artery of nome heart without angina pectoris Chronic kidney disease (CKD) stage G3a/A1, moderately decreased glomerular filtration rate (GFR) between 45-59 mL/min/1.73 square meter and albuminuria creatinine ratio less than 30 mg/g (H* ([facility] CKD stage 3b, GFR 30-44 ml/min 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 (HCC) Type 2 diabetes mellitus without complication, without long-term current use of insulin (HCC) Hyperlipidemia, unspecified hyperlipidemia type Primary hypertension Unspecified essential hypertension Coronary artery disease involving nome coronary artery of nome heart without angina pectoris 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 (HCC)- Primary documented in this encounter [facility] HealthcareEvaluation [facility]* Diagnosis Type 2 diabetes mellitus without complication, without long-term current use of insulin (HCC)- Primary Hyperlipidemia, unspecified hyperlipidemia type Coronary artery disease involving nome coronary artery of nome heart without angina pectoris Primary hypertension Unspecified essential hypertension Encounter for screening for malignant neoplasm of colon Primary hypertension- Primary Unspecified essential hypertension Type 2 diabetes mellitus without complication, without long-term current use of insulin (HCC) Primary hypertension- Primary Unspecified essential hypertension 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 edema, without long-term current use of insulin ([facility]) Hyperlipidemia, unspecified hyperlipidemia type Coronary artery disease involving nome coronary artery of nome heart without angina pectoris Primary hypertension- Primary Unspecified essential hypertension 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 edema, without long-term current use of insulin ([facility]) Hyperlipidemia, unspecified hyperlipidemia type Primary hypertension- Primary Unspecified essential hypertension Type 2 diabetes mellitus without complication, without long-term current use of insulin ([facility]) Type 2 diabetes mellitus with hyperglycemia ([facility]) Irregular heart rate Hyperlipidemia, unspecified hyperlipidemia type Coronary artery disease involving nome coronary artery of nome heart without angina pectoris Chronic kidney disease (CKD) stage G3a/A1, moderately decreased glomerular filtration rate (GFR) between 45-59 mL/min/1.73 square meter and albuminuria creatinine ratio less than 30 mg/g (H* ([facility] CKD stage 3b, GFR 30-44 ml/min (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 ([facility]) Type 2 diabetes mellitus without complication, without long-term current use of insulin ([facility]) Hyperlipidemia, unspecified hyperlipidemia type Primary hypertension Unspecified essential hypertension Coronary artery disease involving nome coronary artery of nome heart without angina pectoris Diabetes mellitus type 2 with complications (HCC) Hyperlipidemia, unspecified hyperlipidemia type documented in this encounter [facility] HealthcareEvaluation note* Diagnosis Type 2 diabetes mellitus without complication, without long-term current use of insulin ([facility])- Primary Hyperlipidemia, unspecified hyperlipidemia type Coronary artery disease involving nome coronary artery of nome heart without angina pectoris Primary hypertension Unspecified [...] unspecified hyperlipidemia type Coronary artery disease involving nome coronary artery of nome heart without angina pectoris Primary hypertension- Primary [...] unspecified hyperlipidemia type Coronary artery disease involving nome coronary artery of nome heart without angina pectoris Chronic kidney disease (CKD) stage G3a/A1, moderately decreased glomerular filtration rate (GFR) between 45-59 mL/min/1.73 square meter and albuminuria creatinine ratio less than 30 mg/g (H* ([facility] CKD stage 3b, GFR 30-44 ml/min (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 (HCC) Type 2 diabetes mellitus without complication, without long-term current use of insulin ([facility]) Hyperlipidemia, unspecified hyperlipidemia type Primary hypertension Unspecified essential hypertension Coronary artery disease involving nome coronary artery of nome heart without angina pectoris Diabetes mellitus type 2 with complications (HCC) Type 2 diabetes mellitus without complication, without long-term current use of insulin ([facility])- Primary Primary hypertension Unspecified essential hypertension CKD stage 3b, GFR 30-44 ml/min ([facility] Hyperlipidemia, unspecified hyperlipidemia type Type 2 diabetes mellitus with hyperglycemia (HCC) Irregular heart rate Coronary artery disease involving nome coronary artery of nome heart without angina pectoris [facility] 3-vessel coronary artery disease Cardiomyopathy, unspecified type (Multi) Hyperlipidemia, unspecified hyperlipidemia type Diabetes mellitus of other type without complication, unspecified whether half-way insulin use documented in this encounter [facility] Work Phone: Evaluation note* Diagnosis Type 2 diabetes mellitus without complication, without long-term current use of insulin (HCC)- Primary Hyperlipidemia, unspecified hyperlipidemia type Coronary artery disease involving nome coronary artery of nome heart without angina pectoris Primary hypertension Unspecified [...] unspecified hyperlipidemia type Coronary artery disease involving nome coronary artery of nome heart without angina pectoris Primary hypertension- Primary [...] unspecified hyperlipidemia type Coronary artery disease involving nome coronary artery of nome heart without angina pectoris Chronic kidney disease (CKD) stage G3a/A1, moderately decreased glomerular filtration rate (GFR) between 45-59 mL/min/1.73 square meter and albuminuria creatinine ratio less than 30 mg/g (H* ([facility] CKD stage 3b, GFR 30-44 ml/min 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 (HCC) Type 2 diabetes mellitus without complication, without long-term current use of insulin ([facility]) Hyperlipidemia, unspecified hyperlipidemia type Primary hypertension Unspecified essential hypertension Coronary artery disease involving nome coronary artery of nome heart without angina pectoris Diabetes mellitus type 2 with complications (HCC) Type 2 diabetes mellitus without complication, without long-term current use of insulin ([facility])- Primary Primary hypertension Unspecified essential hypertension CKD stage 3b, GFR 30-44 ml/min ([facility] Hyperlipidemia, unspecified hyperlipidemia type Type 2 diabetes mellitus with hyperglycemia (HCC) Irregular heart rate Coronary artery disease involving nome coronary artery of nome heart without angina pectoris 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 (HCC)- Primary documented in this encounter [facility] HealthcareEvaluation note* Diagnosis Type 2 diabetes mellitus without complication, without long-term current use of insulin ([facility])- Primary Hyperlipidemia, unspecified hyperlipidemia type Coronary artery disease involving nome coronary artery of nome heart without angina pectoris Primary hypertension Unspecified [...] unspecified hyperlipidemia type Coronary artery disease involving nome coronary artery of nome heart without angina pectoris Primary hypertension- Primary [...] unspecified hyperlipidemia type Coronary artery disease involving nome coronary artery of nome heart without angina pectoris Chronic kidney disease (CKD) stage G3a/A1, moderately decreased glomerular filtration rate (GFR) between 45-59 mL/min/1.73 square meter and albuminuria creatinine ratio less than 30 mg/g (H* ([facility]) CKD stage 3b, GFR 30-44 ml/min ([facility] Primary 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 (HCC) Type 2 diabetes mellitus without complication, without long-term current use of insulin (HCC) Hyperlipidemia, unspecified hyperlipidemia type Primary hypertension Unspecified essential hypertension Coronary artery disease involving nome coronary artery of nome heart without angina pectoris Diabetes mellitus type 2 with complications (HCC) Type 2 diabetes mellitus without complication, without long-term current use of insulin (HCC)- Primary Primary hypertension Unspecified essential hypertension CKD stage 3b, GFR 30-44 ml/min ([facility]) Hyperlipidemia, unspecified hyperlipidemia type Type 2 diabetes mellitus with hyperglycemia (HCC) Irregular heart rate Coronary artery disease involving nome coronary artery of nome heart without angina pectoris 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 (HCC)- Primary documented in this encounter [facility] HealthcareReason for referral (narrative)* Consultation (Routine) - AuthorizedSpecialtyDiagnoses / ProceduresReferred By ContactReferred To ContactCardiology Diagnoses 3-vessel coronary artery disease Procedures Follow Up In Cardiology Yohan Villalta MD [address] [facility] [address], [place] [id number] Yohan Villalta MD [address] [facility] [address], [address] [address] Referral IDStatusKarriStjerome DateExpiration DateVisits RequestedVisits [id number]/ [facility] Work Phone: Reason for visit Narrative* CV Imaging (Routine) - AuthorizedSpecialtyDiagnoses / ProceduresReferred By ContactReferred To ContactCardiology Diagnoses 3-vessel coronary artery disease Cardiomyopathy, unspecified type (Multi) Hyperlipidemia, unspecified hyperlipidemia type Diabetes mellitus of other type without complication, unspecified whether half-way insulin use Procedures Transthoracic Echo Complete [place] ECHO TTHRC R-T 2D W/WOM-MODE COMPL SPEC&COLR D Yohan Villalta MD [address] [place] [address] 2, [place] [id number] Phone: tel: fax: Referral IDStatusLisa DateExpiration DateVisits RequestedVisits [id number] Perform Procedure [facility] Work Phone: Chief Complaint and Reason for Visit Chief Complaint Abnormal Stress, Car diomyopathy Family History No Family History Records Found Relationship Condition Age at Onset Recorded Date/T francis Not Specified Diabetes mellitus Unknown fatherDementiaUnknownGlaucomaUnknownUnknown Family Member Name Dates Details : Mother Status:ActiveFamily history of myocardial infarction: Mother(V17.3, Z82.49) Status:ActiveFamily history of dementia: Father(V17.2, Z81.8) Status:Active Unknown Family Member Name Dates Details : Mother Status:ActiveFamily history of myocardial infarction: Mother(V17.3, Z82.49) Status:ActiveFamily history of dementia: Father(V17.2, Z81.8) Status:Active Unknown Family Member Name Dates Details : Mother Status:ActiveFamily history of myocardial infarction: Mother(V17.3, Z82.49) Status:ActiveFamily history of dementia: Father(V17.2, Z81.8) Status:Active Unknown Family Member Name Dates Details : Mother Status:ActiveFamily history of myocardial infarction: Mother(V17.3, Z82.49) Status:ActiveFamily history of dementia: Father(V17.2, Z81.8) Status:Active Unknown Family Member Name Dates Details : Mother Status:ActiveFamily history of myocardial infarction: Mother(V17.3, Z82.49) Status:ActiveFamily history of dementia: Father(V17.2, Z81.8) Status:Active Unknown Family Member Name Dates Details : Mother Status:ActiveFamily history of myocardial infarction: Mother(V17.3, Z82.49) Status:ActiveFamily history of dementia: Father(V17.2, Z81.8) Status:Active Advance Directives No Advanced Directives Records Found Advance Directive Response Recorded Date/ Time Advance Directives No December 16 1:51pm Summary Purpose Chief Complaint * GIAN SANDOVAL is being seen for a 6 month follow-up of. * Patient is in the office for follow-up for CAD. Last November 2021 he underwent diagnostic cardiac catheterization which revealed occlusion of the mid RCA and left circumflex with mature [id number]-[id number] and left to left collateral network. Ejection [...] Status: Inactive Member Role Status Dates Yohan Villalta MD Attending Provider Active Lars Cardoza Care ProviderActive Team Status: Active Member Role Status Dates Shaikh Ramses MD Primary Care Provider Active Team MemberRelationshipSpecialtyStart DateEnd Date Shaikh Pearce MD PCP - General12/13/21Team MemberRelationshipSpecialtyStart DateEnd Date Shaikh Pearce MD PCP - GeneralInternal Qiilmqqi87/1/23Team MemberRelationshipSpecialtyStart Date End Date Shaikh Pearce MD PCP - GeneralInternal Famayibl56/1/23Team MemberRelationshipSpecialtyStart Date End Date Fuentes Wilson MD [address] [place] [address] PCP - GeneralFamily Medicine05/10/24 Aiyana Tucker OD [address] [place] [address] Referring PhysicianOptometry11/11/23 Enrique Arias NP [address] [place] [address] Nurse PractitionerA[facility] Hospitally Medicine05/10/24Team MemberRelationshipSpecialtyStart DateEnd Date Fuentes Wilson MD [address] [place] [address] PCP - GeneralAnna [facility] Medicine05/10/24 Aiyana Tucker, OD [address] [place] [address] Referring PhysicianOptometry11/11/23 Enrique Arias NP [address] [place] [address] Nurse PractitionerAnna Jaques Hospital Medicine05/10/24Team MemberRelationshipSpecialtyStart DateEnd Date Fuentes Wilson MD [address] [place] [address] PCP - GeneralAnna Jaques Hospital Medicine05/10/24 Aiyana Tucker OD [address] [place] [address] Referring PhysicianOptometry11/11/23 Enrique Arias NP [address] [place] [address] Nurse PractitionerAnna Jaques Hospital Medicine05/10/24Team MemberRelationshipSpecialtyStart DateEnd Date Fuentes Wilson MD [address] [place] [address] PCP - GeneralFamily Medicine05/10/24 Aiyana Tucker, OD [address] [facility] [address] Referring PhysicianOptometry11/11/23 Enrique Arias NP [address] [place] [address] Nurse Practitionermily Medicine05/10/24Team MemberRelationshipSpecialtyStart DateEnd Date Fuentes Wilson MD [address] [place] [address] PCP - GeneralFamily Medicine05/10/24 Aiyana Tucker OD [address] [facility] [place] [address] Referring PhysicianOptometry11/11/23 Enrique Arias NP [address] [place] [address] Nurse PractitionerFamily Medicine05/10/24Team MemberRelationshipSpecialtyStart DateEnd Date Fuentes Wilson MD [address] [place] [address] PCP - GeneralFamily Medicine05/10/24 Aiyana Tucker OD [address] [facility] [place] [address] Referring PhysicianOptometry11/11/23 Enrique Arias NP [address] [place] [address] Nurse PractitionerFamily Medicine05/10/24Team MemberRelationshipSpecialtyStart DateEnd Date Fuentes Wilson MD [address] [place] [address] PCP - GeneralFamily Medicine05/10/24 Aiyana Tucker OD [address] [facility] [place] [place] [address] Referring PhysicianOptometry11/11/23 Enrique Arias, SHIRLEY [address] [place] [address] Nurse PractitionerA[facility] Hospitally Medicine05/10/24Team MemberRelationshipSpecialtyStart DateEnd Date Fuentes Wilson MD [address] [place] [address] PCP - GeneralFamily Medicine05/10/24 Aiyana Tucker, OD [address] [facility] [place] [address] Referring PhysicianOptometry11/11/23 Enrique Arias, SHIRLEY [address] [place] [address] Nurse Practitionermily Medicine05/10/24Team MemberRelationshipSpecialtyStart DateEnd Date Fuentes Wilson MD [address] [place] [address] PCP - GeneralFamily Medicine05/10/24 Aiyana Tucker, OD [address] [place] [facility] [place] [place] [address] Referring PhysicianOptometry11/11/23 Enrique Arias NP [address] [place] [address] Nurse Practitionermily Medicine05/10/24Team MemberRelationshipSpecialtyStart DateEnd Date Fuentes Wilson MD [address] [place] [address] PCP - GeneralFamily Medicine05/10/24 Aiyana Tucker OD [address] [place] [address] Referring PhysicianOptometry11/11/23 Enrique Arias, SOUND TECHNICIAN [address] [place] [address] Nurse PractitionerA[facility] Hospitally Medicine05/10/24Team MemberRelationshipSpecialtyStart DateEnd Date Enrique Arias, DRY ICE MACHINE OPERATOR-CUPOLA PATCHER HELPER [address] [place] [address] PCP - GeneralFamily Imkymonn46/20/24Team MemberRelationshipSpecialtyStart Date End Date Fuentes Wilson MD [address] [place] [address] PCP - GeneralFamily Medicine05/10/24 Aiyana Tucker OD [address] [place] [address] Referring PhysicianOptometry11/11/23 Enrique Arias NP [address] [place] [address] Nurse PractitionerFamily Medicine05/10/24Team MemberRelationshipSpecialtyStart DateEnd Date Fuentes Wilson MD [address] [place] [address] PCP - GeneralFamily Medicine05/10/24 Aiyana Tucker, OD [address] [place] [facility] [place] [place] [address] Referring PhysicianOptometry11/11/23 Enrique Arias NP [address] [place] [address] Nurse PractitionerA[facility] Hospitally Medicine05/10/24Team MemberRelationshipSpecialtyStart DateEnd Date Fuentes Wilson MD [address] [place] [address] PCP - GeneralFamily Medicine05/10/24 Aiyana Tucker OD [address] [facility] [place] [place] [address] Referring PhysicianOptometry11/11/23 Enrique Arias NP [address] [place] [address] Nurse PractitionerFamily Medicine05/10/24Team MemberRelationshipSpecialtyStart DateEnd Date Fuentes Wilson MD [address] [place] [address] PCP - Generalmily Medicine05/10/24 Aiyana Tucker OD [address] [facility] [place] [address] Referring PhysicianOptometry11/11/23 Enrique Arias NP [address] [place] [address] Nurse Practitionermily Medicine05/10/24Team MemberRelationshipSpecialtyStart DateEnd Date Fuentes Wilson MD [address] [place] [address] PCP - Generalmily Medicine05/10/24 Aiyana Tucker, OD [address] [facility] [place] [place] [address] Referring PhysicianOptometry11/11/23 Enrique Arias NP [address] [place] [address] Nurse Practitionermily Medicine05/10/24Team MemberRelationshipSpecialtyStart DateEnd Date Fuentes Wilson MD [address] [place] [address] PCP - GeneralAnna Jaques Hospital Medicine05/10/24 Aiyana Tucker OD [address] [facility] [place] [address] Referring PhysicianOptometry11/11/23 Enrique Arias NP [address] [place] [address] Nurse PractitionerFamily Medicine05/10/24Team MemberRelationshipSpecialtyStart DateEnd Date Fuentes Wilson MD [address] [place] [address] PCP - Generalmily Medicine05/10/24 Aiyana Tucker OD [address] [place] [address] Referring PhysicianOptometry11/11/23 Enrique Arias NP [address] [place] [address] Nurse PractitionerA[facility]ally [facility]05/10/24Team MemberRelationshipSpecialtyStart DateEnd Date Fuentes Wilson MD [address] [place] [address] PCP - Generalmily Medicine05/10/24 Aiyana Tucker OD [address] [place] [address] Referring PhysicianOptometry11/11/23 Enrique Arias, SHIRLEY [address] [place] [address] Nurse Practitionermily Medicine05/10/24Team MemberRelationshipSpecialtyStart DateEnd Date Fuentes Wilson MD [address] [place] [address] PCP - GeneralFamily Medicine05/10/24 Aiyana Tucker OD [address] [place] [address] Referring PhysicianOptometry11/11/23 Enrique Arias NP [address] [place] [address] Nurse PractitionerFamily Medicine05/10/24Team MemberRelationshipSpecialtyStart DateEnd Date Fuentes Wilson MD [address] [place] [address] PCP - GeneralFamily Medicine05/10/24 Aiyana Tucker OD [address] [place] [address] Referring PhysicianOptometry11/11/23 Enrique Arias NP [address] [place] [address] Nurse PractitionerA[facility]ally Medicine05/10/24Team MemberRelationshipSpecialtyStart DateEnd Date Fuentes Wilson MD [address] [place] [address] PCP - GeneralFamily Medicine05/10/24 Aiyana Tucker, OD [address] [place] [address] Referring PhysicianOptometry11/11/23 Enrique Arias NP [address] [place] [address] Nurse PractitionerA[facility]ally Medicine05/10/24Team MemberRelationshipSpecialtyStart DateEnd Date Fuentes Wilson MD [address] [place] [address] PCP - Generalmi Medicine05/10/24 Aiyana Tucker OD [address] [place] [address] Referring PhysicianOptometry11/11/23 Enrique Arias NP [address] [place] [address] Nurse PractitionerAnna [facility] Hospital Medicine05/10/24Team MemberRelationshipSpecialtyStart DateEnd Date Fuentes Wilson MD [address] [place] [address] PCP - GeneralAnna Jaques Hospital Medicine05/10/24 Aiyana Tucker OD [address] [place] [address] Referring PhysicianOptometry11/11/23 Enrique Arias NP [address] [place] [address] Nurse PractitionerAnna [facility] Hospital Medicine05/10/24Team MemberRelationshipSpecialtyStart DateEnd Date Fuentes Wilson MD [address] [place] [address] PCP - GeneralAnna Jaques Hospital Medicine05/10/24 Aiyana Tucker OD [address] [place] [address] Referring PhysicianOptometry11/11/23 Enrique Arias NP [address] [place] [address] Nurse PractitionerFamily Medicine05/10/24Team MemberRelationshipSpecialtyStart DateEnd Date Fuentes Wilson MD [address] [place] [address] PCP - GeneralFamily Medicine05/10/24 Aiyana Tucker OD [address] [place] [address] Referring PhysicianOptometry11/11/23 Enrique Arias NP [address] [place] [address] Nurse Pract[facility]erA[facility]05/10/24Team MemberRelationshipSpecialtyStart DateEnd Date Fuentes Wilson MD [address] [place] [address] PCP - GeneralFamily Medicine05/10/24 Aiyana Tucker OD [address] [place] [address] Referring PhysicianOptometry11/11/23 Enrique Arias NP [address] [place] [address] Nurse PractitionerA[facility]ally [facility]05/10/24Team MemberRelationshipSpecialtyStart DateEnd Date Fuentes Wilson MD [address] [place] [address] PCP - GeneralFamily Medicine05/10/24 Aiyana Tucker OD [address] [place] [address] Referring PhysicianOptometry11/11/23 Enrique Arias NP [address] [place] [address] Nurse PractitionerFamily Medicine05/10/24Team MemberRelationshipSpecialtyStart DateEnd Date Fuentes Wilson MD [address] [place] [address] PCP - GeneralFamily Medicine05/10/24 Aiyana Tucker, OD [address] [place] [address] Referring PhysicianOptometry11/11/23 Enrique Arias NP [address] [place] [address] Nurse PractitionerAnna [facility] Medicine05/10/24Team MemberRelationshipSpecialtyStart DateEnd Date Enrique Arias APRN-CUPOLA PATCHER HELPER PCP - GeneralA[facility] Hospitally Hbsntvpz77/20/24Team MemberRelationshipSpecialtyStart Date End Date Fuentes Wilson MD [address] [place] [phone] PCP - Generalmily Medicine05/10/24 Aiyana Tucker OD [address] [place], [place] [address] Referring PhysicianOptometry11/11/23 Enrique Arias NP [address] [place] [address] Nurse PractitionerAvera Holy Family Hospitally Medicine05/10/24Team MemberRelationshipSpecialtyStart DateEnd Date Fuentes Wilson MD [address] [place] [address] [facility] - [facility]05/10/24 Aiyana Tucker OD [address] [facility] [address] Referring PhysicianOptometry11/11/23 Enrique Arias NP [address] [place] [address] Nurse Practitionermily Medicine05/10/24Team MemberRelationshipSpecialtyStart DateEnd Date Fuentes Wilson MD [address] [place] [address] PCP - Generalmily Medicine05/10/24 Aiyana Tucker OD [address] [facility] [place] [place] [address] Referring PhysicianOptometry11/11/23 Enrique Arias NP [address] [place] [address] Nurse PractitionerA[facility]a Holy Family Hospitally Medicine05/10/24Team MemberRelationshipSpecialtyStart DateEnd Date Fuentes Wilson MD [address] [place] [address] PCP - [facility]Anna [facility] Medicine05/10/24 Aiyana Tucker OD [address] [facility] [place] [address] Referring PhysicianOptometry11/11/23 Enrique Arias NP [address] [place] [address] Nurse PractitionerFamily Medicine05/10/24Team MemberRelationshipSpecialtyStart DateEnd Date Enrique Arias DRY ICE MACHINE OPERATOR-CUPOLA PATCHER HELPER PCP - GeneralFamily Xrrwyuxy22/20/24Team MemberRelationshipSpecialtyStart Date End Date Fuentes Wilson MD [address] [place] [facility] [place] [address] PCP - GeneralFamily Medicine05/10/24 Aiyana Tucker, OD [address] [place] [facility] [place] [address] Referring PhysicianOptometry11/11/23 Enrique Arias NP [address] [facility], [facility] Nurse PractitionerFamily Medicine05/10/24Team MemberRelationshipSpecialtyStart DateEnd Date Fuentes Wilson MD [address] [place] [facility] [place] [address] PCP - GeneralFamily Medicine05/10/24 Aiyana Tucker, OD [address] [place] [facility] [place] [address] Referring PhysicianOptometry11/11/23 Enrique Arias NP [address] [place] [facility] [place] [address] Nurse PractitionerFamily Medicine05/10/24Team MemberRelationshipSpecialtyStart DateEnd Date Fuentes Wilson MD [address] [place] [facility] [place] [address] PCP - GeneralFamily Medicine05/10/24 Aiyana Tucker, OD [address] [place] [address] Referring PhysicianOptometry11/11/23 Enrique Arias NP [address] [place] [address] Nurse PractitionerFamily Medicine05/10/24Team MemberRelationshipSpecialtyStart DateEnd Date Fuentes Wilson MD [address] [place] [address] PCP - [facility]Anna [facility] Medicine05/10/24 Aiyana Tucker OD [address] [place] [address] Referring PhysicianOptometry11/11/23 Enrique Arias NP [address] [place], [place] [address] Nurse PractitionerFasdly Medicine05/10/24 Goals (unrecognized section and content) Goals may be documented in a n alternate section (unrecognized sect ion and content) No Status Records FoundNo Status Records FoundNo Status Records FoundNo Status Records FoundNo Status Records FoundNo Status Records FoundNo Status Records FoundNo Status Records Found INFORMATION SOURCE (unrecogn ized section and content) DATE CREATED AUTHOR 02/05/2022 [facility] DATE CREATED AUTHOR AUTHOR'S ORGANIZ ATION 11/07/2022 [facility] DATE CREATED AUTHOR AUTHOR'S ORGANIZ ATION 11/07/2022 [facility] DATE CREATED AUTHOR AUTHOR'S ORGANIZ ATION 01/08/2023 [facility] DATE CREATED AUTHOR AUTHOR'S ORGANIZ ATION 04/03/2023 [facility] DATE CREATED AUTHOR AUTHOR'S ORGANIZ ATION 05/05/2025 [facility] DATE CREATED AUTHOR AUTHOR'S ORGANIZ ATION 05/08/2025 [facility] DATE CREATED AUTHOR AUTHOR'S ORGANIZ ATION 06/02/2025 [facility] EPIC Reason for Visit (unrecogniz ed section and content) BglwapEfwfmetoJfzeqv-pg9-0 month 3-vessel coronary artery diseaseSpecialty Diagnoses / ProceduresReferred By ContactReferred To ContactCardiology Diagnoses 3-vessel coronary artery disease Procedures Follow Up In Cardiology Yohan Villalta MD [address] [facility] [address], [address] [address] Phone: tel: fax: Yohan Villalta MD [address] [facility], [facility] [address] [place] [address] Phone: tel: fax: Referral IDStatusReasonStart DateExpiration DateVisits RequestedVisits [id number]/20/202412/20/[id number]-bq0 months ReasonOnset DateCommentsMed Qqajlf634ReasonOnset DateCommentsMed Refill 4ReasonCommentsFollow-upReasonCommentsMed RefillReasonCommentsPost-op Blurred VisionReasonOnset DateCommentsMed Mbknwo504ReasonOnset Date CommentsMed Bqziep784ReasonCommentsFollow-upCataractReasonComments Follow-pe8kLhpcjfeb IDStatusReasonStart DateExpiration DateVisits Requested Visits [id number] InjectionReasonCommentsFollow-upBlurred VisionReasonCommentsFollow-upRetinal InjectionSpecialtyDiagnoses / ProceduresReferred By ContactReferred To Contact Ophthalmology Diagnoses 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 (CMS/HCC) Procedures [place] OFFICE/OUTPATIENT [facility] 60 MINUTES Makyala Hair MD [address] [place] [address] [address] [place] [address] Phone: tel: fax: Makayla Hair MD [address] [facility] [address] [place] [address] Phone: tel: fax: Referral IDStatusReasonStart DateExpiration DateVisits RequestedVisits [id number] Perform Procedure [id number] InjectionRetinopathyReasonOnset Date CommentsMed Abifho31/10/2024ReasonCommentsRetinal InjectionRetinopathyFollow-up ReasonCommentsDiabetesReasonOnset DateCommentsMed Ycpwyi1503/06/2025ReasonOnset DateCommentsMed Andsni6703/17/2025ReasonCommentsRetinal InjectionDiabetic RetinopathyReasonOnset DateCommentsMed Pnahcf38/ReasonCommentsRetinal InjectionFollow-upDiabetic Retinopathy FOR RECORDS PERTAINING TO PATIENTS WHO ARE [...] BE BASED ON THE PRIMARY CLINICAL RECORDS. [facility] provides no warranty or guarantee of the accuracy or completeness of information in this document.
--- OUTSIDE RECORDS SUMMARY | 2025-08-05 09:05 | XMS_ITS | Encounter Summary ---
Author Organization [facility] Address [address] [place] [address] Phone Care Team Providers Care Skein Bander Name Role Phone Shaikh LOYD Pearce Primary Care Provider [phone] Tanya Arias Primary Care Prov ider Unavailable Encounter Details DateTypeDepartmentCare Team (Latest Contact Info)Qqkrwjzgtai60/21/1959Scanned Document [facility] [address] [place] [address] Scanning, Generic Provider Social History Tobacco UseTypesPacks/DayYears UsedDateSmoking Tobacco: Never AssessedSex and Gender InformationValueDate RecordedSex Assigned at BirthNot on fileLegal Sex Male07/25/2022 11:13 PM ESTGender IdentityNot on fileSexual OrientationNot on filedocumented as of this encounter Plan of Treatment DateTypeDepartmentCare Team (Latest Contact Info)Zghgixxudzq74/06/2026 2:50 PM ESTOffice Visit [facility] [address] [facility] [address] [place] [address] Yohan Sadler MD [address] [facility], [address] [place] [address] documented as of this encounter Procedures Procedure NamePriorityDate/TimeAssociated DiagnosisCommentsOUTSIDE LAB SCAN 1958 documented in this encounter Results * OUTSIDE LAB SCAN (1958) Narrative 1958 Ordered by an unspecified provider. Authorizing ProviderResult TypeResult StatusGeneric Provider ScanningOUTSIDE SCANFinal Result documented in this encounter Visit Diagnoses Not on filedocumented in this encounter Care Teams Team MemberRelationshipSpecialtyStart DateEnd Date JaimewShaikh mclain MD PCP - General12/13 Tanya Arias APRN-SUPERVISOR [employer]BUILD[employer] WOOD PCP - GeneralFaChildren's [facility]08/19/24documented as of this encounter
--- OUTSIDE RECORDS SUMMARY | 2025-08-05 09:05 | XMS_ITS | Encounter Summary ---
Author Organization [facility] Address [address] [place] [address] Care Team Providers Care Bulk Folder Name Role Phone Aiyana Tucker OD Unavailable Fuentes Wilson MD Primary Care Provider [phone] Tanya Arias HYDROCRANE OPERATOR Unavailable [phone] Encounter Details DateTypeDepartmentCare Team (Latest Contact Info)Obkqmjbnftk83/01/2025Travel Social History Tobacco UseTypesPacks/DayYears UsedDateSmoking Tobacco: FormerCigarettesPassive Smoke Exposure: PastSmokeless Tobacco: NeverAlcohol UseStandard Drinks/Week CommentsNever0 (1 standard drink = 0.6 oz pure alcohol)PHQ-2AnswerDate Recorded Patient Health Questionnaire-2 [id number] and Gender InformationValue Date RecordedSex Assigned at BirthNot on fileLegal EidGzwg0712/29/2022 8:34 PM EDT Gender IdentityNot on fileSexual OrientationNot on filedocumented as of this encounter Plan of Treatment DateTypeDepartmentCare Team (Latest Contact Info)Lxscfcapzdf54/16/2026 8:45 AM ESTClinical Support [facility] [address] [place] [address] Rashad Solis, DO [address] [place] [address] documented as of this encounter Visit Diagnoses Not on filedocumented in this encounter Care Teams Team MemberRelationshipSpecialtyStart DateEnd Date Fuentes Wilson MD [address] [place] [address] PCP - GeneralFamily Medicine05/10/24 Aiyana Tucker OD [address] [place] [address] Referring PhysicianOptometry11/11/23 Tanya Arias NP Nurse PractitionerFamily Medicine05/10/24documented as of this encounter
--- OUTSIDE RECORDS SUMMARY | 2025-08-05 09:05 | XMS_ITS | Encounter Summary ---
Author Organization [facility] Address [address] [place] [address] Care Team Providers Care Rainbow Trout Farm Manager Name Role Phone CaitlinAiyana OD Unavailable Fuentes Wilson MD Primary Care Provider [phone] Tanya Arias STONE LAYOUT MARKER Unavailable [phone] Encounter Details DateTypeDepartmentCare Team (Latest Contact Info)Pzjspsjvncy63/01/[address] [facility] [address] [place] [address] Rashad Solis, DO [address] [place] [address] Social History Tobacco UseTypesPacks/DayYears UsedDateSmoking Tobacco: FormerCigarettesPassive Smoke Exposure: PastSmokeless Tobacco: NeverAlcohol UseStandard Drinks/Week CommentsNever0 (1 standard drink = 0.6 oz pure alcohol)PHQ-2AnswerDate Recorded Patient Health Questionnaire-2 Tobnx595Sex and Gender InformationValue Date RecordedSex Assigned at BirthNot on fileLegal KnwVanp3312/29/2022 8:34 PM EDT Gender IdentityNot on fileSexual OrientationNot on filedocumented as of this encounter Plan of Treatment DateTypeDepartmentCare Team (Latest Contact Info)Kxejpkezdho90/16/2026 8:45 AM ESTClinical Support [facility] [address] [place] [address] Rashad Solis, DO [address] [place] [address] documented as of this encounter Visit Diagnoses Not on filedocumented in this encounter Care Teams Team MemberRelationshipSpecialtyStart DateEnd Date Fuentes Wilson MD [address] [place] [address] PCP - GeneralFamily Medicine05/10/24 Aiyana Tucker OD [address] [place] [address] Referring PhysicianOptometry11/11/23 Tanya Arias NP Nurse PractitionerFamily Medicine05/10/24documented as of this encounter
[2025-08-05 09:44] LABS: Anion Gap 11.7; Blood Urea Nitrogen 21.0 mg/dL (7.0-18.0); Calcium 9.3 mg/dL (8.5-10.1); Carbon Dioxide 27.5 mmol/L (21.0-32.0); Chloride 106 mmol/L (98-107); Estimated GFR (African America >60 (>=60 mL/min/1.73m^2); Estimated GFR (Non-African Ame >60 (>=60 mL/min/1.73m^2); Glucose 152 mg/dL (74-106); Potassium 4.2 mmol/L (3.5-5.1); Sodium 141 mmol/L (136-145)
== END 2025-08-05 09:02 | disposition home or self-care (01) ==
LOC: LAB 09:02
PROVIDERS: PCP Nurse Practitioner; Visit Provider Nurse Practitioner
DX: E11.65 Type 2 diabetes mellitus with hyperglycemia (principal); Z12.5 Encounter for screening for malignant neoplasm of prostate; N18.32 Chronic kidney disease, stage 3b
CPT/HCPCS: 36415; 80048; 83036; G0103